=== PATIENT | female | born 1970 | race Caucasian/White ===

== ENCOUNTER 2016-08-10 05:08 | Emergency (ER) | payer MEDICARE, MEDICAID ==
[2016-08-10] MEDS ORDERED: NS 0.9% 1000 ML* 1,000 ML IV ONE (05:33)
[2016-08-10] MEDS ORDERED: Ondansetron INJ* 2 MG/ML VIAL IV ONE (05:33)
[2016-08-10 05:41] LABS: Hematocrit 44 % (35-47); Hemoglobin 14.9 g/dl (12.0-16.0); Mean Corpuscular HGB Conc 34 g/dl (31-36); Mean Corpuscular Hemoglobin 30 pg (27-31); Mean Corpuscular Volume 88 fL (80-97); Mean Platelet Volume 8 um3 (7.4-10.4); Red Blood Count 5.06 10^6/ul (4.0-5.4); Red Cell Distribution Width 14 % (10.5-15); White Blood Count 13.7 10^3/ul (3.5-10.8)
--- NOTE | 2016-08-10 05:54 | ED ---
Madonna Baez Michael, scribed for Jaiden Barrera MD on 08/10/16 at 0540 . GI/ HPI - HPI Summary HPI Summary: 46 y/o was BIBA to the ED presenting with intermittent episodes n/v/d that started at 1900 today. The pt had "many" episodes of diarrhea and vomiting [employer]ENT [employer]ER. She also c/o diffuse abd pain that is rated a 10 out of 10 on a pain severity scale. The PMHx is significant for depression and anxiety. - History of Current Complaint Chief Complaint: EDNauseaVomitDiarrh Stated Complaint: GENERAL ILLNESS Hx Obtained From: Patient, Medical Records Onset/Duration: Started Hours Ago, Still Present Timing: Intermittent Severity: Moderate Current Severity: Moderate Pain Intensity: 10 Location of Pain: Diffuse Associated Signs and Symptoms: Positive: Nausea, Vomiting, Diarrhea, Abdominal Pain - Additional Pertinent History Primary Care Physician: [id number] - Allergy/Home Medications Allergies/Adverse Reactions: Allergies Allergy/AdvReac Type Severity Reaction Status Date / Time Bee Venom Allergy Severe See Comment Verified 08/10/16 05:17 Onion Allergy Severe See Comment Verified 08/10/16 05:17 Aspirin Allergy Intermediate Nausea Verified 08/10/16 05:17 Penicillins [PCN] Allergy Intermediate See Comment Verified 08/10/16 05:17 Mars Allergy Unknown See Comment Verified 08/10/16 05:17 Sulfa Drugs Allergy Unknown Unknown Verified 08/10/16 05:17 Reaction Details Codeine AdvReac Severe See Comment Verified 08/10/16 05:17 Home Medications: Home Medications Baclofen TAB* [Lioresal TAB*] 10 mg PO BID 08/10/16 [History Confirmed 08/10/16] Brexpiprazole (NF) [Rexulti (NF)] 2 mg PO DAILY 08/10/16 [History Confirmed ] Naproxen TAB* [Naprosyn TAB*] 220 mg PO Q8H PRN 08/10/16 [History Confirmed ] Rizatriptan (NF) [Maxalt-Template Maker (NF)] 10 mg PO Q8H PRN 08/10/16 [History Confirmed 08/10/16] PMH/Surg Hx/FS Hx/Imm Hx Endocrine/Hematology History: Denies: Hx Diabetes, Hx Thyroid Disease, Hx Anemia, Hx Unexplained Bleeding, Other Endocrine/Hematological Disorders Cardiovascular History: Denies: Hx Aneurysm, Hx Angina, Hx Angioplasty, Hx Auto Implanted Cardiovert Defib, Hx Cardiac Arrest, Hx Cardiomegaly, Hx Congenital Heart Disease, Hx Congestive Heart Failure, Hx Coronary Artery Disease, Hx Deep Vein Thrombosis, Hx Embolism, Hx Hypercholesterolemia, Hx Hypotension, Hx Hypertension, Hx Pacemaker/ICD, Hx Peripheral Vascular Disease, Hx Rheumatic Fever, Hx Syncope, Hx Valvular Heart Disease, Other Cardiovascular Problems/Disorders Respiratory History: Reports: Hx Asthma, Other Respiratory Problems/Disorders - recent intubation Denies: Hx Chronic Bronchitis, Hx Chronic Obstructive Pulmonary Disease (COPD ), Hx Cystic Fibrosis, Hx Lung Cancer, Hx Pleural Effusion, Hx Pneumonia, Hx Pulmonary Edema, Hx Pulmonary Embolism, Hx Seasonal Allergies, Hx Sleep Apnea GI History: Reports: Hx Gastroesophageal Reflux Disease, Hx Ulcer Denies: Hx Gastrointestinal Bleed, Hx Hiatal Hernia History: Reports: Other Problems/Disorders - accidents; pt reports sometimes unable to make it to [facility] on time Denies: Hx Dialysis, Hx Kidney Stones, Hx Renal Disease Musculoskeletal History: Reports: Hx Back Problems, Other Musculoskeletal History - MS Denies: Hx Arthritis, Hx Bursitis, Hx Congenital Bone Abnormalities, Hx Fibromyalgia, Hx Gout, Hx Orthopedic Injury, Hx Osteoporosis, Hx Scoliosis, Hx Tendonitis Sensory History: Reports: Hx Contacts or Glasses, Other Sensory Impairments - Numbness in feet Denies: Hx Cataracts, Hx Eye Injury, Hx Eye Prosthesis, Hx Glaucoma, Hx Legally Blind, Hx Macular Degeneration, Hx Vision Problem, Hx Deafness, Hx Hearing Aid, Hx Hearing Problem Opthamlomology History: Reports: Hx Contacts or Glasses, Other Sensory Impairments - Numbness in feet Denies: Hx Cataracts, Hx Eye Injury, Hx Eye Prosthesis, Hx Glaucoma, Hx Legally Blind, Hx Macular Degeneration, Hx Vision Problem Neurological History: Reports: Hx Headaches, Hx Migraine, Hx Nerve Disease, Other Neuro Impairments/Disorders - MS Denies: Hx Dementia, Hx Developmental Delay, Hx Seizures, Hx Spinal Cord Injury, Hx Transient Ischemic Attacks (TIA) Psychiatric History: Reports: Hx Anxiety, Hx Depression, Hx Suicide Attempt, Hx Substance Abuse Denies: Hx Attention Deficit Hyperactivity Disorder, Hx Eating Disorder, Hx Panic Disorder, Hx Post Traumatic Stress Disorder, Hx Inpatient Treatment, Hx Community Mental Health Tx, Hx Schizophrenia, Hx Bipolar Disorder, Hx of Violent Episodes Against Others, Other Psychiatric Issues/Disorders - Surgical History Surgery Procedure, Year, and Place: molars REMOVED 2010 & 2011 Hx Anesthesia Reactions: No - Immunization History Date of Tetanus Vaccine: Unknown Date of Influenza Vaccine: Unk re: Fall 2014 Infectious Disease History: No Infectious Disease History: Denies: Hx Clostridium Difficile, Hx Hepatitis, Hx Human Immunodeficiency Virus (HIV), Hx of Known/Suspected MRSA, Hx Shingles, Hx Tuberculosis, Hx Known/ Suspected VRE, Hx Known/Suspected VRSA, History Other Infectious Disease, Traveled Outside the [place] in Last 30 Days - Family History Known Family History: Positive: Unknown - Social History Lives: Alone Alcohol Use: None 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 Hx Substance Use: No Substance Use Type: Reports: None Hx Tobacco Use: No Smoking Status (MU): Never Smoked Tobacco Type: Cigarettes Amount Used/How Often: 2 cigaretts/week Length of Time of Smoking/Using Tobacco: 2 months Have You Smoked in the Last Year: No Review of Systems Negative: Fever Positive: Abdominal Pain, Vomiting, Diarrhea, Nausea All Other Systems Reviewed And Are Negative: Yes Physical Exam Triage Information Reviewed: Yes Vital Signs On Initial Exam: Initial Vitals Temp Pulse Resp BP Pulse Ox 97.3 F 126 17 123/77 97 08/10/16 05:11 08/10/16 05:11 08/10/16 05:11 08/10/16 05:11 08/10/16 05:11 Vital Signs Reviewed: Yes Appearance: Positive: Well-Appearing, No Pain Distress Skin: Positive: Warm Eyes: Positive: LUIS ENT: Positive: Hearing grossly normal Neck: Positive: Supple Respiratory/Lung Sounds: Positive: Clear to Auscultation, Breath Sounds Present Cardiovascular: Positive: RRR Abdomen Description: Positive: Nontender, No Organomegaly, Soft Bowel Sounds: Positive: Present Musculoskeletal: Positive: Strength/ROM Intact Diagnostics - Vital Signs Vital Signs Temp Pulse Resp BP Pulse Ox 08/10/16 05:11 97.3 F 126 17 123/77 97 - Laboratory Lab Results: Lab Results 08/10/16 Range/Units 05:15 WBC 13.7 H (3.5-10.8) 10^3/ul RBC 5.06 (4.0-5.4) 10^6/ul Hgb 14.9 (12.0-16.0) g/dl Hct 44 (35-47) % MCV 88 (80-97) fL MCH 30 (27-31) pg MCHC 34 (31-36) g/dl RDW 14 (10.5-15) % Plt Count 280 (150-450) 10^3/ul MPV 8 (7.4-10.4) um3 Neut % (Auto) 91.0 H (38-83) % Lymph % (Auto) 1.9 L (25-47) % [place] % (Auto) 6.4 (1-9) % Eos % (Auto) 0.1 (0-6) % Baso % (Auto) 0.6 (0-2) % Absolute Neuts (auto) 12.5 H (1.5-7.7) 10^3/ul Absolute Lymphs (auto) 0.3 L (1.0-4.8) 10^3/ul Absolute Monos (auto) 0.9 H (0-0.8) 10^3/ul Absolute Eos (auto) 0 (0-0.6) 10^3/ul Absolute Basos (auto) 0.1 (0-0.2) 10^3/ul Absolute Nucleated RBC 0 10^3/ul Nucleated RBC % 0 Result Diagrams: 08/10/16 05:15 08/10/16 05:15 Lab Statement: Any lab studies that have been ordered have been reviewed, and results considered in the medical decision making process. Re-Evaluation - Re-Evaluation First Eval Re-Evaluation Time: 06:40 Change: Improved GIGU Course/Dx - Diagnoses Provider Diagnoses: Gastroenteritis Discharge - Discharge Plan Condition: Improved Disposition: HOME Patient Education Materials: Gastroenteritis (ED) Referrals: hCiki Chandler MD [Primary Care Provider] - Additional Instructions: You should keep to a bland diet for the next few days. And follow up with Dr. Chandler as needed. Please return to the ED if your symptoms worsen. The documentation as recorded by the Madonna mark Michael accurately reflects the service I personally performed and the decisions made by me, Jaiden Barrera MD.
[2016-08-10 05:57] LABS: Albumin 4.4 g/dL (3.2-5.2); BUN/Creatinine Ratio 19.5 (8-20); C Reactive Protein 9.12 mg/L (< 5.00); Calcium 9.1 mg/dL (8.6-10.3); EGFR African American 103.3 (>60); EGFR Non-African American 80.4 (>60); Magnesium 1.4 mg/dL (1.9-2.7); Potassium 3.8 mmol/L (3.5-5.0); Total Bilirubin 0.8 mg/dL (0.2-1.0); Total Protein 7.4 g/dL (6.4-8.9)
[2016-08-10] MEDS ORDERED: Ondansetron ODT TAB* 4 MG PO ONE (06:50)
[2016-08-10] MEDS ORDERED: Ondansetron ODT TAB* 4 MG ONE (06:52)
[2016-08-10 07:06] VITALS: BP 123/73
== END 2016-08-10 07:04 | disposition home or self-care (01) ==
LOC: ED 05:08
DX: K52.9 Noninfective gastroenteritis and colitis, unspecified (principal); R11.2 Nausea with vomiting, unspecified; R19.7 Diarrhea, unspecified; R10.9 Unspecified abdominal pain; Z87.891 Personal history of nicotine dependence
CPT/HCPCS: 36415; 80053; 83605; 83690; 83735; 85025; 86140; 96374; 99283; A9270-GY; J2405

== ENCOUNTER 2016-08-10 18:39 | Emergency (ER) | payer MEDICARE, MEDICAID ==
[2016-08-10] MEDS ORDERED: Pantoprazole IV* 40 MG IV ONE (20:46)
[2016-08-10] MEDS ORDERED: Sucralfate TAB* 1 GM PO ONE (20:46)
[2016-08-10] MEDS ORDERED: NS 0.9% 1000 ML* 1,000 ML IV ONE (20:46)
[2016-08-10 21:22] LABS: Hematocrit 42 % (35-47); Hemoglobin 13.9 g/dl (12.0-16.0); Mean Corpuscular HGB Conc 33 g/dl (31-36); Mean Corpuscular Hemoglobin 29 pg (27-31); Mean Corpuscular Volume 88 fL (80-97); Mean Platelet Volume 9 um3 (7.4-10.4); Red Blood Count 4.75 10^6/ul (4.0-5.4); Red Cell Distribution Width 14 % (10.5-15); White Blood Count 6.5 10^3/ul (3.5-10.8)
[2016-08-10 21:37] LABS: ALT 14 U/L (7-52); AST 19 U/L (13-39); Albumin 4.1 g/dL (3.2-5.2); Alkaline Phosphatase 75 U/L (34-104); Anion Gap 8 mmol/L (2-11); BUN/Creatinine Ratio 16.9 (8-20); Blood Urea Nitrogen 12 mg/dL (6-24); C Reactive Protein 72.41 mg/L (< 5.00); CO2 Carbon Dioxide 26 mmol/L (22-32); Calcium 8.6 mg/dL (8.6-10.3); Chloride 102 mmol/L (101-111); EGFR African American 113.5 (>60); EGFR Non-African American 88.2 (>60); Globulin 2.8 g/dL (2-4); Glucose 97 mg/dL (70-100); Lipase < 10 U/L (11.0-82.0); Potassium 3.2 mmol/L (3.5-5.0); Sodium 136 mmol/L (133-145); Total Protein 6.9 g/dL (6.4-8.9)
[2016-08-10] MEDS ORDERED: HYDROmorphone INJ* 1 MG/ML CARPUJECT SYRINGE IV ONE ×2 (21:46→23:53)
[2016-08-10] MEDS ORDERED: Ondansetron INJ* 2 MG/ML VIAL IV ONE (21:46)
[2016-08-10 23:29] LABS: Urine Bacteria 1+ (Absent); Urine Bilirubin Negative (Negative); Urine Glucose Negative (Negative); Urine Nitrite Negative (Negative)
[2016-08-10] MEDS ORDERED: Metoclopramide IV* 5 MG/ML 2 ML VIAL IV ONE (23:41)
--- NOTE | 2016-08-11 00:03 | ED ---
Marlen Baez Matthew, scribed for Hayes Wei MD on 08/10/16 at 205 . Abdominal Pain/Female - HPI Summary HPI Summary: A 46 y/o female presents to the ED with epigastric abdominal pain since yesterday at 19:00. The pain is rated 10/10 in severity and described as sharp. Nothing alleviates or worsens the pain. Associated symptoms include nausea, vomiting, and diarrhea. The patient was seen in the ED last night, but continues to have pain. PMHx includes MS - History of Current Complaint Chief Complaint: EDAbdPain Stated Complaint: POSSIBLE FLU Time Seen by Provider: 08/10/16 20:35 Hx Obtained From: Patient ?: No Onset/Duration: Lasting Days, Still Present Timing: Constant Severity Initially: Moderate Severity Currently: Moderate Pain Intensity: 10 Pain Scale Used: 0-10 Numeric Location: Epigastric Radiates: No Character: Sharp Aggravating Factor(s): Nothing Alleviating Factor(s): Nothing Associated Signs and Symptoms: Positive: Nausea, Vomiting, Diarrhea Allergies/Adverse Reactions: Allergies Allergy/AdvReac Type Severity Reaction Status Date / Time Bee Venom Allergy Severe See Comment Verified 08/10/16 05:17 Onion Allergy Severe See Comment Verified 08/10/16 05:17 Aspirin Allergy Intermediate Nausea Verified 08/10/16 05:17 Penicillins [PCN] Allergy Intermediate See Comment Verified 08/10/16 05:17 [place] Allergy Unknown See Comment Verified 08/10/16 05:17 Sulfa Drugs Allergy Unknown Unknown Verified 08/10/16 05:17 Reaction Details Codeine AdvReac Severe See Comment Verified 08/10/16 05:17 PMH/Surg Hx/FS Hx/Imm Hx Endocrine/Hematology History: Denies: Hx Diabetes, Hx Thyroid Disease, Hx Anemia, Hx Unexplained Bleeding, Other Endocrine/Hematological Disorders Cardiovascular History: Denies: Hx Aneurysm, Hx Angina, Hx Angioplasty, Hx Auto Implanted Cardiovert Defib, Hx Cardiac Arrest, Hx Cardiomegaly, Hx Congenital Heart Disease, Hx Congestive Heart Failure, Hx Coronary Artery Disease, Hx Deep Vein Thrombosis, Hx Embolism, Hx Hypercholesterolemia, Hx Hypotension, Hx Hypertension, Hx Pacemaker/ICD, Hx Peripheral Vascular Disease, Hx Rheumatic Fever, Hx Syncope, Hx Valvular Heart Disease, Other Cardiovascular Problems/Disorders Respiratory History: Reports: Hx Asthma, Other Respiratory Problems/Disorders - recent intubation Denies: Hx Chronic Bronchitis, Hx Chronic Obstructive Pulmonary Disease (COPD ), Hx Cystic Fibrosis, Hx Lung Cancer, Hx Pleural Effusion, Hx Pneumonia, Hx Pulmonary Edema, Hx Pulmonary Embolism, Hx Seasonal Allergies, Hx Sleep Apnea GI History: Reports: Hx Gastroesophageal Reflux Disease, Hx Ulcer Denies: Hx Gastrointestinal Bleed, Hx Hiatal Hernia History: Reports: Other Problems/Disorders - accidents; pt reports sometimes unable to make it to [facility] on time Denies: Hx Dialysis, Hx Kidney Stones, Hx Renal Disease Musculoskeletal History: Reports: Hx Back Problems, Other Musculoskeletal History - MS Denies: Hx Arthritis, Hx Bursitis, Hx Congenital Bone Abnormalities, Hx Fibromyalgia, Hx Gout, Hx Orthopedic Injury, Hx Osteoporosis, Hx Scoliosis, Hx Tendonitis Sensory History: Reports: Hx Contacts or Glasses, Other Sensory Impairments - Numbness in feet Denies: Hx Cataracts, Hx Eye Injury, Hx Eye Prosthesis, Hx Glaucoma, Hx Legally Blind, Hx Macular Degeneration, Hx Vision Problem, Hx Deafness, Hx Hearing Aid, Hx Hearing Problem Opthamlomology History: Reports: Hx Contacts or Glasses, Other Sensory Impairments - Numbness in feet Denies: Hx Cataracts, Hx Eye Injury, Hx Eye Prosthesis, Hx Glaucoma, Hx Legally Blind, Hx Macular Degeneration, Hx Vision Problem Neurological History: Reports: Hx Headaches, Hx Migraine, Hx Nerve Disease, Other Neuro Impairments/Disorders - MS Denies: Hx Dementia, Hx Developmental Delay, Hx Seizures, Hx Spinal Cord Injury, Hx Transient Ischemic Attacks (TIA) Psychiatric History: Reports: Hx Anxiety, Hx Depression, Hx Suicide Attempt, Hx Substance Abuse Denies: Hx Attention Deficit Hyperactivity Disorder, Hx Eating Disorder, Hx Panic Disorder, Hx Post Traumatic Stress Disorder, Hx Inpatient Treatment, Hx Community Mental Health Tx, Hx Schizophrenia, Hx Bipolar Disorder, Hx of Violent Episodes Against Others, Other Psychiatric Issues/Disorders - Surgical History Surgery Procedure, Year, and Place: molars REMOVED 2010 & 2011 Hx Anesthesia Reactions: No - Immunization History Date of Tetanus Vaccine: Unknown Date of Influenza Vaccine: Unk re: Fall 2014 Infectious Disease History: No Infectious Disease History: Denies: Hx Clostridium Difficile, Hx Hepatitis, Hx Human Immunodeficiency Virus (HIV), Hx of Known/Suspected MRSA, Hx Shingles, Hx Tuberculosis, Hx Known/ Suspected VRE, Hx Known/Suspected VRSA, History Other Infectious Disease, Traveled Outside the [place] in Last 30 Days - Family History Known Family History: Positive: Diabetes Family History: FHx of spina bifida - Social History Alcohol Use: None 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 Hx Substance Use: No Substance Use Type: Reports: None Hx Tobacco Use: No Smoking Status (MU): Never Smoked Tobacco Type: Cigarettes Amount Used/How Often: 2 cigaretts/week Length of Time of Smoking/Using Tobacco: 2 months Have You Smoked in the Last Year: No Review of Systems Constitutional: Negative Eyes: Negative ENT: Negative Cardiovascular: Negative Respiratory: Negative Positive: Abdominal Pain - epigastric , Vomiting, Diarrhea, Nausea Genitourinary: Negative Musculoskeletal: Negative Skin: Negative Neurological: Negative Psychological: Normal All Other Systems Reviewed And Are Negative: Yes Physical Exam Triage Information Reviewed: Yes Vital Signs On Initial Exam: Initial Vitals Temp Pulse Resp BP Pulse Ox 98.7 F 118 20 116/58 98 08/10/16 18:46 08/10/16 18:46 08/10/16 18:46 08/10/16 18:46 08/10/16 18:46 Vital Signs Reviewed: Yes Appearance: Positive: Pain Distress - mild Skin: Positive: Warm, Skin Color Reflects Adequate Perfusion, Dry Head/Face: Positive: Normal Head/Face Inspection Eyes: Positive: Normal ENT: Positive: Normal ENT inspection Neck: Positive: Supple, Nontender Respiratory/Lung Sounds: Positive: Clear to Auscultation, Breath Sounds Present Cardiovascular: Positive: Tachycardia Abdomen Description: Positive: Soft, Other: - epigastric tenderness Bowel Sounds: Positive: Present Musculoskeletal: Positive: Normal Neurological: Positive: Normal Psychiatric: Positive: Normal, Affect/Mood Appropriate Diagnostics - Vital Signs Vital Signs Temp Pulse Resp BP Pulse Ox 08/10/16 20:11 98.8 F 110 107/68 100 08/10/16 18:46 98.7 F 118 20 116/58 98 - Laboratory Lab Results: Lab Results 08/10/16 08/10/16 08/10/16 Range/Units 21:10 21:10 21:10 WBC 6.5 (3.5-10.8) 10^3/ul RBC 4.75 (4.0-5.4) 10^6/ul Hgb 13.9 (12.0-16.0) g/dl Hct 42 (35-47) % MCV 88 (80-97) fL MCH 29 (27-31) pg MCHC 33 (31-36) g/dl RDW 14 (10.5-15) % Plt Count 264 (150-450) 10^3/ul MPV 9 (7.4-10.4) um3 Neut % (Auto) 84.8 H (38-83) % Lymph % (Auto) 7.3 L (25-47) % [place] % (Auto) 7.0 (1-9) % Eos % (Auto) 0.4 (0-6) % Baso % (Auto) 0.5 (0-2) % Absolute Neuts (auto) 5.5 (1.5-7.7) 10^3/ul Absolute Lymphs (auto) 0.5 L (1.0-4.8) 10^3/ul Absolute Monos (auto) 0.5 (0-0.8) 10^3/ul Absolute Eos (auto) 0 (0-0.6) 10^3/ul Absolute Basos (auto) 0 (0-0.2) 10^3/ul Absolute Nucleated RBC 0.01 10^3/ul Nucleated RBC % 0.2 Sodium 136 (133-145) mmol/L Potassium 3.2 L (3.5-5.0) mmol/L Chloride 102 (101-111) mmol/L Carbon Dioxide 26 (22-32) mmol/L Anion Gap 8 (2-11) mmol/L BUN 12 (6-24) mg/dL Creatinine 0.71 (0.51-0.95) mg/dL Est GFR ( Amer) 113.5 (>60) Est GFR (Non-Af Amer) 88.2 (>60) BUN/Creatinine Ratio 16.9 (8-20) Glucose 97 (70-100) mg/dL Lactic Acid 1.4 (0.5-2.0) mmol/L Calcium 8.6 (8.6-10.3) mg/dL Total Bilirubin 0.80 (0.2-1.0) mg/dL AST 19 (13-39) U/L ALT 14 (7-52) U/L Alkaline Phosphatase 75 (34-104) U/L C-Reactive Protein 72.41 H (< 5.00) mg/L Total Protein 6.9 (6.4-8.9) g/dL Albumin 4.1 (3.2-5.2) g/dL Globulin 2.8 (2-4) g/dL Albumin/Globulin Ratio 1.5 (1-3) Lipase < 10 L (11.0-82.0) U/L Urine Color Urine Appearance Urine pH (5-9) Ur Specific [place] (1.010-1.030) Urine Protein (Negative) Urine Ketones (Negative) Urine Blood (Negative) Urine Nitrate (Negative) Urine Bilirubin (Negative) Urine Urobilinogen (Negative) Ur Leukocyte Esterase (Negative) Urine WBC (Auto) (Absent) Urine RBC (Auto) (Absent) Ur Squamous Epith Cells (Absent) Urine Bacteria (Absent) Urine Glucose (Negative) 08/10/16 Range/Units 22:56 WBC (3.5-10.8) 10^3/ul RBC (4.0-5.4) 10^6/ul Hgb (12.0-16.0) g/dl Hct (35-47) % MCV (80-97) fL MCH (27-31) pg MCHC (31-36) g/dl RDW (10.5-15) % Plt Count (150-450) 10^3/ul MPV (7.4-10.4) um3 Neut % (Auto) (38-83) % Lymph % (Auto) (25-47) % [place] % (Auto) (1-9) % Eos % (Auto) (0-6) % Baso % (Auto) (0-2) % Absolute Neuts (auto) (1.5-7.7) 10^3/ul Absolute Lymphs (auto) (1.0-4.8) 10^3/ul Absolute Monos (auto) (0-0.8) 10^3/ul Absolute Eos (auto) (0-0.6) 10^3/ul Absolute Basos (auto) (0-0.2) 10^3/ul Absolute Nucleated RBC 10^3/ul Nucleated RBC % Sodium (133-145) mmol/L Potassium (3.5-5.0) mmol/L Chloride (101-111) mmol/L Carbon Dioxide (22-32) mmol/L Anion Gap (2-11) mmol/L BUN (6-24) mg/dL Creatinine (0.51-0.95) mg/dL Est GFR ( Amer) (>60) Est GFR (Non-Af Amer) (>60) BUN/Creatinine Ratio (8-20) Glucose (70-100) mg/dL Lactic Acid (0.5-2.0) mmol/L Calcium (8.6-10.3) mg/dL Total Bilirubin (0.2-1.0) mg/dL AST (13-39) U/L ALT (7-52) U/L Alkaline Phosphatase (34-104) U/L C-Reactive Protein (< 5.00) mg/L Total Protein (6.4-8.9) g/dL Albumin (3.2-5.2) g/dL Globulin (2-4) g/dL Albumin/Globulin Ratio (1-3) Lipase (11.0-82.0) U/L Urine Color Yellow Urine Appearance Cloudy Urine pH 5.0 (5-9) Ur Specific [place] 1.032 H (1.010-1.030) Urine Protein 2+(100 mg/dl) H (Negative) Urine Ketones Trace H (Negative) Urine Blood Negative (Negative) Urine Nitrate Negative (Negative) Urine Bilirubin Negative (Negative) Urine Urobilinogen Negative (Negative) Ur Leukocyte Esterase Negative (Negative) Urine WBC (Auto) Trace(0-5/hpf) (Absent) Urine RBC (Auto) 2+(6-10/hpf) H (Absent) Ur Squamous Epith Cells Present H (Absent) Urine Bacteria 1+ H (Absent) Urine Glucose Negative (Negative) Result Diagrams: 08/10/16 21:10 08/10/16 21:10 Lab Statement: Any lab studies that have been ordered have been reviewed, and results considered in the medical decision making process. Abdominal Pain Fem Course/Dx - Course Course Of Treatment: Ms. Cisneros presented with worsening epigastric pain which did not respond to medications here in the ED. A CT has been ordered. - Diagnoses Provider Diagnoses: Epigastric abdominal pain - Provider Notifications Discussed Care Of Patient With: Dr. Barrera Time Discussed With Above Provider: 00:00 - change of shift Discharge - Discharge Plan Condition: Stable Disposition: HOME Patient Education Materials: Epigastric Pain (ED) Referrals: Chiki Chandler MD [Primary Care Provider] - 2 Days Additional Instructions: Please follow-up with your primary care physician. The documentation as recorded by the Marlen mark Matthew accurately reflects the service I personally performed and the decisions made by me, Hayes Wei MD.
[2016-08-11] MEDS ORDERED: Iohexol 300* (CONTRAST) 10 ML SDV IV ONE (01:57)
[2016-08-11 03:12] VITALS: BP 96/73
--- NOTE | 2016-08-11 07:57 | RAD ---
INDICATION: Epigastric pain COMPARISON: None TECHNIQUE: Axial source images were obtained from the hemidiaphragms to the symphysis pubis following administration of oral and intravenous contrast. 101 mL Omnipaque 300 was utilized. Coronal and sagittal reconstructed images were acquired. Lung bases: The lung bases are clear. Liver: The liver is enlarged with findings of hepatic steatosis. There are no masses. There is no ductal dilatation. Gallbladder: There are no calcified gallstones. There is no evidence of wall thickening or pericholecystic fluid. Spleen: The spleen is normal in size. There are no masses. Pancreas: There is no focal pancreatic mass or ductal dilatation. Adrenal glands: There is no evidence of adrenal mass. Kidneys: The kidneys are normal in size and position. There are prompt nephrograms and there is prompt excretion bilaterally. There are no renal parenchymal masses. There is no evidence of nephrolithiasis. Adenopathy: There is no evidence of adenopathy by size criteria. Fluid collections: There are no free or localized fluid collections. Vessels:There are no significant atherosclerotic changes involving the aorta. There is no focal aneurysm. The iliac vessels are normal in caliber. The IVC appears normal. GI tract: There are no acute CT bowel findings. There is no obstruction. The stomach and small bowel appear normal. The lower GI tract is normal. The cecum, ileocecal valve, and terminal ileum appear normal. The appendix is visualized and appear normal. Pelvic organs: The uterus and adnexa appear normal Bladder: There are no bladder masses. Abdominal and pelvic soft tissues: The extraperitoneal abdominal and pelvic soft tissues appear normal.. Osseous structures: There are no acute osseous findings. Other: None IMPRESSION: NO ACUTE CT FINDINGS. NO MASS OR INFLAMMATORY CHANGE.
== END 2016-08-11 03:11 | disposition home or self-care (01) ==
LOC: ED 18:39
DX: R10.13 Epigastric pain (principal); R11.2 Nausea with vomiting, unspecified; R19.7 Diarrhea, unspecified
CPT/HCPCS: 36415; 74177; 80053; 81003; 81015; 83605; 83690; 85025; 86140; 87086; 96374; 96375; 99284; A9270-GY; J1170; J2405; J2765; Q9967

== ENCOUNTER 2017-03-29 04:20 | Observation (INO) | payer MEDICARE, MEDICAID ==
[2017-03-29] MEDS ORDERED: Acetaminophen TAB* 325 MG PO ONE (08:17)
--- NOTE | 2017-03-29 08:53 | RAD ---
HISTORY: Weakness COMPARISONS: December 16, 2016 VIEWS: 1: frontal portable view of the chest at 8:35 AM FINDINGS: LINES AND TUBES: None. CARDIOMEDIASTINAL SILHOUETTE: The cardiomediastinal silhouette is normal for portable technique. PLEURA: The costophrenic angles are sharp. No pleural abnormalities are noted. LUNG PARENCHYMA: The lungs are clear. ABDOMEN: The upper abdomen is clear. There is no subphrenic gas. BONES AND SOFT TISSUES: No bone or soft tissue abnormalities are noted. IMPRESSION: NO ACTIVE CARDIOPULMONARY DISEASE.
--- NOTE | 2017-03-29 08:53 | RAD ---
HISTORY: Weakness, headache, fall COMPARISONS: April 10, 2014 TECHNIQUE: Multiple contiguous axial CT scans were obtained of the head without intravenous contrast. FINDINGS: HEMORRHAGE/INFARCT: There is no hemorrhage or acute infarct. MASSES/SHIFT: There is no mass or shift. EXTRA-AXIAL SPACES: There are no extra-axial fluid collections. SULCI AND VENTRICLES: There is diffuse and proportional enlargement of the sulci and ventricles. CEREBRUM: There is hypoattenuation of the periventricular and subcortical white matter. BRAINSTEM: There are no focal parenchymal abnormalities. CEREBELLUM: There are no focal parenchymal abnormalities. VESSELS: The vessels are grossly normal. PARANASAL SINUSES: The paranasal sinuses are clear. ORBITS: The orbits are unremarkable. BONES AND SOFT TISSUE: No bone or soft tissue abnormalities are noted. OTHER: None IMPRESSION: NO ACUTE INTRACRANIAL PATHOLOGY. DIFFUSE INVOLUTIONAL CHANGE WITH CHRONIC SMALL VESSEL ISCHEMIC CHANGES.
--- NOTE | 2017-03-29 08:55 | RAD ---
HISTORY: Fall, neck pain COMPARISONS: MRI dated March 04, 2016 TECHNIQUE: Multiple contiguous axial CT scans were obtained of the cervical spine without intravenous contrast, with coronal and sagittal multiplanar reformations. FINDINGS: BRAIN: The visualized brain is unremarkable CENTRAL CANAL: Evaluation of the central canal is limited on CT technique; however, there is no obvious canalicular mass or epidural hemorrhage. ALIGNMENT: The alignment is normal, without subluxation or dislocation. VERTEBRAL BODIES: There is minimal anterolateral marginal osteophyte formation with sclerotic reactive endplate changes at C5-C6. There is no displaced fracture. JOINTS: There is mild uncovertebral osteoarthritis at C5-C6. MUSCULATURE: Unremarkable INTERVERTEBRAL DISCS: There is diffuse loss of intervertebral disc height. AXIAL IMAGES: There is no osseous neural foraminal narrowing or central canal stenosis. SOFT TISSUES: The visualized soft tissues of the neck are unremarkable. The prevertebral fat stripe is preserved. OTHER: None. IMPRESSION: 1. MILD DEGENERATIVE DISC DISEASE AND OSTEOARTHRITIS MOST PRONOUNCED AT C5-C6. 2. NO ACUTE OSSEOUS INJURY TO THE CERVICAL SPINE.
--- NOTE | 2017-03-29 09:19 | RAD ---
HISTORY: Thoracic spine pain after fall COMPARISONS: Chest x-ray dated December 16, 2016 VIEWS: 2, Frontal and lateral views of the thoracic spine. FINDINGS: ALIGNMENT: The alignment is normal. VERTEBRAL BODIES: The vertebral body heights are normal. The interpedicular distances are normal. JOINTS: Unremarkable. INTERVERTEBRAL DISCS: There is mild diffuse loss of intervertebral disc height. SOFT TISSUE: Unremarkable OTHER: The visualized lungs are clear. IMPRESSION: UNREMARKABLE RADIOGRAPH OF THE THORACIC SPINE
[2017-03-29 09:53] LABS: Urine Bacteria 1+ (Absent); Urine Bilirubin Negative (Negative); Urine Glucose Negative (Negative); Urine Nitrite Negative (Negative)
[2017-03-29] MEDS ORDERED: cefTRIAXone(*) 1 GM in NS 0.9% 50 ML* 50 ML IVPB ONE (10:09)
[2017-03-29 10:16] LABS: Hematocrit 40 % (35-47); Hemoglobin 13.6 g/dl (12.0-16.0); Mean Corpuscular HGB Conc 34 g/dl (31-36); Mean Corpuscular Hemoglobin 30 pg (27-31); Mean Corpuscular Volume 86 fL (80-97); Mean Platelet Volume 9 um3 (7.4-10.4); Red Blood Count 4.59 10^6/ul (4.0-5.4); Red Cell Distribution Width 14 % (10.5-15); White Blood Count 7.5 10^3/ul (3.5-10.8)
[2017-03-29 10:39] LABS: Chloride 104 mmol/L (101-111); Sodium 136 mmol/L (133-145)
[2017-03-29 10:54] LABS: TSH (Thyroid Stimulating Horm) 7.44 mcIU/mL (0.34-5.60)
[2017-03-29 11:06] LABS: ALT 17 U/L (7-52); Alkaline Phosphatase 80 U/L (34-104); Anion Gap 14 mmol/L (2-11); BUN/Creatinine Ratio 10.8 (8-20); Blood Urea Nitrogen 8 mg/dL (6-24); CO2 Carbon Dioxide 18 mmol/L (22-32); Calcium 8.8 mg/dL (8.6-10.3); EGFR African American 108.2 (>60); EGFR Non-African American 84.1 (>60); Globulin 2.9 g/dL (2-4); Glucose 88 mg/dL (70-100); Magnesium 2.2 mg/dL (1.9-2.7)
[2017-03-29] MEDS ORDERED: NS 0.9% 1000 ML* 1,000 ML IV ONE (11:15)
[2017-03-29] MEDS ORDERED: cefTRIAXone(*) 1 GM ADVAN ONE (11:21)
[2017-03-29] MEDS ORDERED: RIZATRIPTAN 10 MG PO PRN (11:47)
[2017-03-29] MEDS ORDERED: Ondansetron ODT TAB* 4 MG PO PRN (11:47)
[2017-03-29] MEDS ORDERED: NS 0.9% 1000 ML* 1,000 ML IV SCH (12:00)
[2017-03-29 13:04] LABS: C Reactive Protein 4.14 mg/L (< 5.00)
--- NOTE | 2017-03-29 14:43 | HP ---
CC: Dr. Chandler * [facility] MEDICINE HISTORY AND PHYSICAL: DATE OF ADMISSION: 03/29/17 PRIMARY CARE PHYSICIAN: Dr. Chandler. ATTENDING PHYSICIAN: Dr. Fabina Whyte * (dictation provided by Angi Perales NP ). CHIEF COMPLAINT: Fall with weakness. HISTORY OF PRESENT ILLNESS: Ms. Cisneros is a 46-year-old female with past medical history of multiple sclerosis, depression, and asthma, who presents to the hospital today with concern for fall with weakness. Ms. Cisneros states that she was feeling unwell last evening. She had some stomach cramps when she went to bed in the middle of her abdomen. She notes that she typically has these cramps and it was not particularly unusual. Early in the morning, she awoke to urinate and while coming back from the bathroom, she fell. She was unable to get up herself and therefore called EMS, who brought her to the emergency room. Since being in the emergency room, she has had no further cramping. She has had no diarrhea. She has had no dysuria, no frequency, but she continues to feel very weak as per routine with her MS exacerbations in the past. In the emergency room, Ms. Cisneros had no fever, no leukocytosis. CRP is pending. However, she had a UA, which showed suspicion for possible UTI with trace leuk esterase and 1+ bacteria. PAST MEDICAL HISTORY: 1. Multiple sclerosis. 2. Depression. 3. Asthma. 4. History of migraines. 5. Urinary incontinence. 6. Optic neuritis. MEDICATIONS: As outpatient are: 1. Amantadine 100 mg p.o. b.i.d. 2. Baclofen 10 mg p.o. b.i.d. 3. Brexpiprazole 2 mg p.o. daily. 4. Tecfidera 250 mg p.o. daily. 5. Methylphenidate ER 36 mg p.o. q.a.m. 6. Naproxen 220 mg p.o. q.8 hours p.r.n. 7. Ondansetron 4 mg p.o. q.6 hours p.r.n. 8. Oxybutynin 5 mg p.o. b.i.d. 9. Rizatriptan 10 mg p.o. q.8 hours p.r.n. 10. Vilazodone 40 mg p.o. daily. ALLERGIES: To BEE VENOM, ONION, ASPIRIN, PENICILLIN, CITRUS, SULFA DRUGS, CODEINE. FAMILY HISTORY: The patient's mother at 60 related to complications of diabetes. Her father is alive, he has spina bifida. SOCIAL HISTORY: No prior alcohol, tobacco, or drug use. The patient lives alone. States that her friend, Meme Palumbo, would be the healthcare proxy. REVIEW OF SYSTEMS: A 14-point review of systems was completed with Ms. Cisneros and all those not mentioned above were negative. PHYSICAL EXAMINATION GENERAL: Ms. Cisneros is sitting up in the bed. She is in no acute distress. VITAL SIGNS: Temperature 98.1, heart rate 83, respiratory rate 16, O2 saturation 99% on room air, blood pressure 121/59. LUNGS: Clear to auscultation bilaterally with no accessory muscle use and good aeration. HEART: S1 and S2. No murmur, rub, or gallop, and regular. ABDOMEN: Soft, nontender with bowel sounds positive x4. EXTREMITIES: No cyanosis or edema. NEURO: She is alert, she is oriented x3. She moves all extremities equally. There is no facial asymmetry or focal weakness. Extraocular movements are intact. SKIN: Intact. DIAGNOSTIC STUDIES/LAB DATA: Sodium 136, potassium 4.2, chloride 104, serum bicarbonate 18, anion gap 14, BUN 8, creatinine 0.74, glucose 88, lactic acid 2.1, magnesium 2.2, TSH 7.44. WBC 7.5, hemoglobin 13.6, hematocrit 40, platelet count 295. Urine shows 1+ leuk esterase, positive bacteria, no nitrites. Brain CT shows no acute intracranial pathology, diffuse involutional change, or chronic small vessel ischemic changes. Chest x-rays is read as follows: "No active cardiopulmonary disease." Cervical spine CT is read as follows: "Mild degenerative disk disease and osteoarthritis most pronounced at C5-C6, no acute osseous injury to the cervical spine." Thoracic spine x-ray is read as follows: "Unremarkable radiograph of thoracic spine." ASSESSMENT AND PLAN: Ms. Cisneros is a 46-year-old female with past medical history of multiple sclerosis and depression, who presents today to the hospital with concern for fall at home, now weakness and possible multiple sclerosis exacerbation most likely due to possible urinary tract infection. Our plans for observation in the hospital for the followin. Weakness: Ms. Cisneros states she is weaker than her baseline. She was able to get up to bedside commode, but does not feel safe going home with the level of weakness that she is experiencing. I see no other cause at her exacerbation other than the mildly positive urinalysis. She denies any symptoms at this time , but states she has not had symptoms in the past with urinary tract infection either. Plan for nitrofurantoin while we await urine cultures. If the patient continues to have issue, we will need to consult Neurology tomorrow regarding possible initiation of steroids, etc. In the meantime, we will continue with her other home medications. 2. Depression. Continue home medications. 3. DVT prophylaxis with SCDs. 4. Code status is full code. TIME SPENT: Approximately 60 minutes was spent on the admission of this patient. More than half the time spent with the patient at the bedside reviewing the events leading up to this hospitalization, performing the physical examination, and reviewing my plan of care. ANGI PERALES NP [id number]/CPS #: [id number] SHIRA
[2017-03-29] MEDS: Naproxen TAB* 250 MG PO PRN (19:59)
[2017-03-29] MEDS: Oxybutynin TAB* 5 MG PO SCH (20:54)
[2017-03-29] MEDS: Amantadine CAP* 100 MG PO SCH (20:54)
[2017-03-29] MEDS: DIMETHYL FUMARATE 240 MG PO SCH (21:03)
[2017-03-29] MEDS: Baclofen TAB* 10 MG PO SCH (21:04)
[2017-03-30 06:09] LABS: BUN/Creatinine Ratio 12.3 (8-20); EGFR African American 97.5 (>60); EGFR Non-African American 75.8 (>60); Potassium 3.5 mmol/L (3.5-5.0)
[2017-03-30] MEDS: Naproxen TAB* 250 MG PO PRN ×2 (07:58→19:36)
[2017-03-30] MEDS: Methylphenidate ER TAB* 18 MG PO SCH (09:06)
[2017-03-30] MEDS: BREXPIPRAZOLE 2 MG PO SCH (09:07)
[2017-03-30] MEDS: DIMETHYL FUMARATE 240 MG PO SCH ×2 (09:07→21:14)
[2017-03-30] MEDS: Amantadine CAP* 100 MG PO SCH ×2 (09:08→21:15)
[2017-03-30] MEDS: Nitrofurantoin Macrocrystals* 100 MG CAP PO SCH ×4 (09:08→21:15)
[2017-03-30] MEDS: Oxybutynin TAB* 5 MG PO SCH ×2 (09:08→21:15)
[2017-03-30] MEDS: Baclofen TAB* 10 MG PO SCH ×2 (09:08→21:15)
[2017-03-30] MEDS: VILAZODONE 40 MG PO SCH (09:08)
--- NOTE | 2017-03-30 11:33 | PN ---
Subjective Date of Service: 03/30/17 Interval History: This is a 46 yo female with MS who presents with c/o weakness. Symptoms started suddenly the night before last returning from the restroom when she felt weak and fell. She has had a recent backache, but doesn't recall an acute injury. She has been taking Aleve with some relief. Denies urinary symptoms, UA was abnl at admission. She received one dose of Ceftriaxone in the ER, and started on nitrofurantoin for possible UTI. This am, she was evaluated by PT who felt that she was near baseline. Patient still feels weak, similar to yesterday. Her chronic symptoms include BLE weakness, L>R and RUE weakness and she uses a walker at baseline. She denies any focality or dizziness associated with her weakness. Patient was treated for a similar constellation of symptoms ~1mo ago. No new lesions on MRI at that time. She was given oral prednisone. Weakness improved with antibiotics at that time, although culture showed no growth. Objective Active Medications: Amantadine HCl (Symmetrel Cap*) 100 mg PO BID [facility] Last Admin: 03/30/17 09:08 Dose: 100 mg Baclofen (Lioresal Tab*) 10 mg PO BID [facility] Last Admin: 03/30/17 09:08 Dose: 10 mg Methylphenidate HCl (Concerta Er Tab*) 36 mg PO QAM [facility] Last Admin: 03/30/17 09:06 Dose: 36 mg Naproxen (Naprosyn Tab*) 250 mg PO Q8H PRN PRN Reason: PAIN Last Admin: 03/30/17 07:58 Dose: 250 mg Nitrofurantoin Macrocrystals (Macrodantin*) 100 mg PO QID [facility] Last Admin: 03/30/17 09:08 Dose: 100 mg Pto: Brexpiprazole (Nf) [Rexulti (Nf)] 2 Mg) 2 mg PO DAILY [facility] Last Admin: 03/30/17 09:07 Dose: 2 mg Pto: Dimethyl Fumarate(Nf) [ Tecfidera(Nf)] 240 Mg) 240 mg PO BID [facility] Last Admin: 03/30/17 09:07 Dose: 240 mg Pto: Rizatriptan ( Nf) [Maxalt(Nf)] 10 Mg 10 mg PO Q8H PRN PRN Reason: HEADACHE Ondansetron HCl (Zofran Odt Tab*) 4 mg PO Q6H PRN PRN Reason: NAUSEA Oxybutynin Chloride (Ditropan Tab*) 5 mg PO BID [facility] Last Admin: 03/30/17 09:08 Dose: 5 mg Vilazodone HCl (Viibryd (Nf)) 40 mg PO DAILY [facility] Last Admin: 03/30/17 09:08 Dose: 40 mg Vital Signs: Temp Pulse Resp BP Pulse Ox 98.3 F 63 18 97/47 98 03/30/17 07:52 03/30/17 07:52 03/30/17 08:00 03/30/17 07:52 03/30/17 07:52 Oxygen Devices in Use Now: None Appearance: Chronically ill appearing middle aged female in NAD Respiratory: Symmetrical Chest Expansion and Respiratory Effort, Clear to Auscultation Cardiovascular: NL Sounds; No Murmurs; No JVD, RRR Abdominal: NL Sounds; No Tenderness; No Distention Extremities: No Edema, - - R paralumbar TTP Skin: No Rash or Ulcers Neurological: Alert and Oriented x 3, - - LLE weakness with hip flexion, mild decreased ladle mechanic strength in L compared to R Result Diagrams: 03/29/17 09:45 03/30/17 04:45 Additional Lab and Data: . Assess/Plan/Problems-Billing Assessment: This is a 46 yo female with MS, depression and asthma who presented with complaints of weakness. - Patient Problems (1) Weakness Comment: Etiology not clear, onset seemed rather acute Question of UTI, but prelim micro suggests mixed kaylee, no leukocytosis or fever TSH elevated, but would expect more insidious onset if this were due to hypothyroidism Recently stable MRI of the brain Requested neuro consultation Patient feels persistently weak, exam per PT appears near baseline (2) Elevated TSH Comment: TSH 7, low nl free T4 c/o weakness may be related, but her complaints seemed more acute than what would be expected from hypothyroidism Recommend repeat TSH and free T4 in 4-6 weeks prior to initiating treatment (3) Multiple sclerosis Comment: Followed by Dr Barahona Maintained on Tecfidera (4) Depression Comment: Appears stable, continue home prescription (5) Asthma Comment: No acute exacerbation (6) Full code status (7) DVT prophylaxis Comment: SQ Lovenox Status and Disposition: Observation. Pending neuro consultation
[2017-03-30] MEDS ORDERED: Enoxaparin(*) 40 MG/0.4 ML SYR SUBCUT SCH (12:00)
--- NOTE | 2017-03-30 22:00 | RAD ---
Indication: History of MS. Increased lower extremity weakness. Evaluate for new lesions. Comparison: February 27, 2017 MRI. Technique: PureLiFia 1.5 Shanae [id number] with GEM suite. MRI brain without contrast. Report: Diffusion series is negative for acute or subacute ischemia. Susceptibility series is negative for stigmata of hemosiderin deposition to indicate previous hemorrhage. Extensive T2 hyperintense periventricular white matter lesions bilaterally are oriented perpendicular to the corpus callosum and with with involvement of the septal colossal interface without change compared with the February 27, 2017 exam. Smaller foci of T2 hyperintensity are noted at the brainstem. Negative for mass effect. Unremarkable cerebral sulci. Mild prominence of the ventricles without change. Patent basal cisterns. Preserved major intracranial flow-voids. Unremarkable orbital contents. Unremarkable calvarium and skull base. Clear paranasal sinuses and mastoid air spaces. Unremarkable scalp. IMPRESSION: No evidence for change in significant burden of bilateral cerebral white matter and brainstem demyelinating lesions compared with the February 27, 2017 exam.
--- NOTE | 2017-03-30 22:11 | RAD ---
Indication: Multiple sclerosis. Weakness sudden onset 2 days ago. Comparison: March 04, 2016 contrast-enhanced MRI. Technique: Noncontrast MRI cervical spine. Report: There are T2 hyperintense lesions at the level of the dens, C2-C3 through C3-C4 disc space, and centered at the level of the C5-C6 disc space as well as subtle lesions more inferiorly including at the T2, T3, and T4 levels without mass effect or gross change compared with the March 04, 2016 exam. Additional patchy T2 hyperintense lesions evident at the lani and medulla without change. Negative for syringohydromyelia. Normal bone marrow signal throughout the [id number]. Advanced disc space narrowing as well as moderate dorsal disc osteophyte complex at C5-C6 with mild resulting impression on the ventral margin of the thecal sac without significant resulting spinal stenosis. IMPRESSION: Extensive demyelinating lesions of the cervical and visualized proximal thoracic spine as well as the brainstem without significant interval change compared with the contrast-enhanced MRI of March 04, 2016. No definitive new cervical spine demyelinating lesions evident.
--- NOTE | 2017-03-30 23:56 | CONS ---
CC: Shelley Barahona MD, outpatient neurologist * NEUROLOGY CONSULTATION: DATE OF CONSULT: 03/30/17 LOCATION: The patient is an inpatient. REQUESTING PROVIDER: LALI Blanco CHIEF COMPLAINT: Weakness. HISTORY OF PRESENT ILLNESS: Karla Cisneros is a 46-year-old woman with a history of relapsing remitting MS which she reports was diagnosed in 2000, but that she most likely had the disease prior to that. She is currently treated with Tecfidera and in the past has used Betaseron as well as Copaxone. She has been on Tecfidera for at least several years. In the past 2 months or so, she had some flushing with the medication and was instructed to reduce the dose to once daily for approximately 2 weeks and then she returned to twice daily dosing in the past 3 to 4 weeks. She has had no recurrence of flushing. She also had a flu shot approximately 2 weeks ago. She came into the hospital after falling in her apartment on Thursday night. She is not sure if her foot caught on something, but she fell and hit her head on the right side. She still has a slight headache, but otherwise is feeling okay. She reports that she was feeling increased lower extremity weakness prior to this fall for perhaps a week or so. She continues to feel that she is slightly more weak than her baseline, but she has difficulty quantifying how far off from her baseline she is. At her baseline, she has left greater than right lower extremity weakness and left greater than right upper extremity weakness. She has also had optic neuritis on the right in the past. She ambulates with a rollator and has a power wheelchair for longer distances. Her laboratory workup has been mildly abnormal and notable for possible signs of a urinary tract infection, but not overly convincing, and a slightly elevated TSH. She has no known history of thyroid disease. A Neurology consultation was requested to evaluate for the possibility of MS relapse. She denies any recent illnesses or new medications. The patient indicated that on Thursday and Thursday prior to her fall, she did more walking than normal and feels that she may have run herself down in doing that. In addition, the weather has been somewhat unseasonably warm and though she has A/C at home, her heat was recently turned on in her apartment. She is currently able to ambulate but feels a little more weak in her legs than is typical for her. 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 HOME MEDICATIONS: 1. Methylphenidate 36 mg q.a.m. 2. Tecfidera 240 mg b.i.d. 3. Rexulti 2 mg daily. 4. Baclofen 10 mg b.i.d. 5. Amantadine 100 mg b.i.d. 6. Oxybutynin 5 mg b.i.d. 7. Zofran 4 mg q.6 p.r.n. 8. Naproxen 220 mg q.8 p.r.n. 9. Vilazodone 40 mg daily. 10. Maxalt 10 mg p.r.n. migraine pain. ALLERGIES: Include BEE VENOM, ONION, ASPIRIN, PENICILLINS, CITRUS, SULFA DRUGS , CODEINE. SOCIAL HISTORY: The patient lives in an apartment. She does have health aides who come in to help her on a daily basis. REVIEW OF SYSTEMS: As per the HPI, otherwise negative. PHYSICAL EXAM: Vital Signs: Temperature 98.2, blood pressure 105/47, heart rate 86, oxygen saturation 99% on room air. On general examination, she is a pleasantly obese woman in no acute distress. Her heart is in regular rate and rhythm with no murmurs, rubs or gallops. Lungs are clear to auscultation bilaterally. Skin exam reveals multiple tattoos over her arms. She has no extremity edema. There is no joint swelling or erythema. Her affect is appropriate. On neurologic examination, she is fully awake, alert and oriented. Her speech is fluent, but somewhat slow with no obvious dysarthria or aphasia. Cranial nerve examination, pupils are equal, round, and reactive from 3 to 2 mm, but there is an APD on the right. Eye movements are notable for bilateral intranuclear ophthalmoplegias. Visual bliss were full bilaterally. Facial musculature is notable for slight right facial weakness, but good activation on smile bilaterally. Eye closure is normal. Sensation to light touch is intact bilaterally in the face. Hearing was slightly diminished to finger rub on the right. Shoulder shrug was full and symmetric. On motor examination, she had some mildly increased tone in the upper extremities. She had a slight pronator drift on the right. She had approximately grade 5- strength in the deltoids bilaterally, but good strength more distally. In the lower extremities, the right hip flexor was approximately 5- while the left hip flexor was a grade 4, right knee extension and flexion grade 5, left knee extension and flexion grade 4, right ankle dorsiflexion 5- and left ankle dorsiflexion grade 4. Reflexes were 2+ in the upper extremities and at the knees as well as the ankles with upgoing toes bilaterally. [id number] showed some action tremor bilaterally , but no ataxia. She was not able to perform [id number] with the left leg, but with the right side there was no obvious ataxia. Sensory exam is notable for diminished pinprick over the dorsum of the foot bilaterally as well as diminished vibratory sensation, which is worse on the right. Proprioception is intact. She ambulates with a walker with a slow gait. She has diminished clearance secondary to her footdrop bilaterally. She turns en bloc. DIAGNOSTIC STUDIES/LAB DATA: CBC showed a normal profile aside from a low lymphocyte percentage of 14.5%, which is expected in the setting of Tecfidera. The chemistry profile yesterday showed a CO2 of 18, anion gap of 14 with lactate of 2.1, but her gap is normal today. Her calcium is 8. TSH was elevated at 7.44 and free T4 is 0.8. Urinalysis was notable for 1+ protein, negative nitrites, trace leukocyte esterase, 1+ wbc's and 1+ bacteria. I reviewed an MRI scan of her brain from February of 2017, which shows a heavy burden of MS plaques in the periventricular white matter as well as pericallosal fibers as well as the brain stem and cerebellum. There is significant atrophy of the carpus callosum as well as the cerebrum itself with ex vacuo dilatation of the ventricles. As compared to the study done in February of 2016, there were no obvious changes. 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 I will be comparing my examination today to the outpatient notes of Dr. Barahona most recently to see if there has been a major change here, but it does not seem on first glance that she is likely having a significant relapse. It may be that several factors are contributing to a pseudo exacerbation including over exerting herself over the weekend and possibly this mildly elevated TSH as well as her mildly dirty urine. Her urine culture is pending, but it is felt that most likely this is a contamination and not a pathologically important finding. I am going to obtain updated, but noncontrast, MRI scan of her brain and cervical spine to see if there are any obvious new lesions which would push one in the direction of treating with steroids. I note that she was last treated with steroids little over a year ago. Otherwise, I would have her continue working with physical therapy and I will follow up tomorrow after her scans are done. Thank you for this consultation. [id number]/[facility] #: [id number] SHIRA
[2017-03-31] MEDS: Methylphenidate ER TAB* 18 MG PO SCH (09:29)
[2017-03-31] MEDS: Oxybutynin TAB* 5 MG PO SCH (09:29)
[2017-03-31] MEDS: Baclofen TAB* 10 MG PO SCH (09:31)
[2017-03-31] MEDS: BREXPIPRAZOLE 2 MG PO SCH (09:31)
[2017-03-31] MEDS: Amantadine CAP* 100 MG PO SCH (09:31)
[2017-03-31] MEDS: DIMETHYL FUMARATE 240 MG PO SCH (09:32)
[2017-03-31] MEDS: Nitrofurantoin Macrocrystals* 100 MG CAP PO SCH (09:32)
[2017-03-31] MEDS: VILAZODONE 40 MG PO SCH (09:33)
[2017-03-31 09:34] VITALS: BP 98/39
[2017-03-31] MEDS: Naproxen TAB* 250 MG PO PRN (09:37)
--- NOTE | 2017-04-01 01:54 | DS ---
CC: Dr. Chandler; Dr. Barahona * DISCHARGE SUMMARY: DATE OF ADMISSION: 03/29/17 DATE OF DISCHARGE: 03/31/17 PRIMARY CARE PROVIDER: Dr. Chandler. PRIMARY NEUROLOGIST: Shelley Barahona MD CONSULTING NEUROLOGIST: Margo Chance MD DISCHARGING PROVIDER: LALI Galindo. SUPERVISING PHYSICIAN: Fabian Whyte MD * (DICTATED BY LALI GALINDO) PRIMARY DISCHARGE DIAGNOSES: 1. Weakness - no clear etiology, but the patient is near baseline at the time of discharge. 2. Elevated TSH - recommend repeat TSH in 4 to 6 weeks, thyroid replacement not initiated at the time of discharge. 3. Abnormal urinalysis - no evidence of significant growth on culture. SECONDARY DISCHARGE DIAGNOSES: 1. Multiple sclerosis without evidence of acute flare, followed by Dr. Barahona. 2. Depression, which appears to be stable. 3. Asthma without acute exacerbation. DISCHARGE MEDICATIONS: 1. Amantadine 100 mg p.o. twice daily. 2. Baclofen 10 mg p.o. twice daily. 3. Rexulti 2 mg p.o. daily. 4. Tecfidera 240 mg p.o. twice daily. 5. Ritalin extended release 36 mg p.o. daily. 6. Naproxen 220 mg q.8 hours as needed for pain. 7. Zofran 4 mg p.o. q.6 hours as needed for nausea. 8. Oxybutynin 5 mg p.o. twice daily. 9. Maxalt 10 mg p.o. q.8 hours as needed. 10. Viibryd 40 mg p.o. daily. Medication changes: None. HOSPITAL IMAGIN. CT of the brain shows no acute pathology. She does have diffuse involutional change with chronic small vessel changes. 2. Chest x-ray shows no acute process. 3. CT of the cervical spine shows mild degenerative disk disease and osteoarthritis, most pronounced at C5-6 but no acute injury. 4. Thoracic x-ray is unremarkable without any acute process. 5. MRI of the brain without contrast shows no evidence for change and significant burden of bilateral cerebral white matter and brain stem demyelinating lesions compared to last image from 02/27/17. 6. Cervical spine MRI shows extensive demyelinating lesions of the cervical and visualized proximal thoracic spine as well as brain stem without significant interval change compared to the contrast enhanced MRI of 03/04/16. No definitive new cervical demyelinating lesions evident. HOSPITAL COURSE: This is a 46-year-old female with multiple sclerosis followed by Dr. Barahona who has been fairly stable on treatment for quite some time who presented to the emergency department with complaints of weakness and fall. The patient's symptoms started rather suddenly in the overnight hours when she was ambulating back from the bathroom. She suddenly felt weak and fell to the ground. The initial labs were really unremarkable. No leukocytosis. No significant metabolic derangements, although her lactic acid was mildly elevated at 2.1. Her TSH was also noted to be elevated at 7.44, but a free T4, which was still within normal limits at 0.8 and her urinalysis was slightly abnormal with positive leuk esterase, white blood cells and bacteria. Final culture showed no growth of clinically significant organisms. The patient initially was thought to perhaps have a urinary tract infection based on her urinalysis and that was blamed for her weakness. As mentioned above, cultures did not grow anything of significance and she had no signs of systemic infection. The patient did not feel significantly better after rehydration and a period of observation and Neurology was asked to consult for the possibility of her weakness being a result of a flare of her multiple sclerosis. Repeat imaging of her brain and cervical spine were completed per recommendation of Neurology, which did not show any significant change from prior imaging and treatment with IV steroids was not felt to be necessary. At the time of discharge, the patient states that she felt near her baseline, although still somewhat weak but able to navigate her house and felt safe to return home. She was evaluated for urinary retention during her hospital stay given that she has had multiple abnormal urine tests, but postvoid residual was less than 50 mL when checked and the patient denied any difficulty urinating or hesitancy. DISPOSITION AND FOLLOWUP PLAN: The patient is being discharged to home without any changes to her home medications. Recommend that she follow up with Dr. Barahona regarding this hospital stay. She has a followup with him established for early February and she is encouraged to call his office if her symptoms persist or become worse. She did have a noted elevated TSH. This is not felt to be a significant contributor to her acute symptoms, but certainly would recommend repeating a TSH and free T4 in approximately 4 to 6 weeks. If urinary concerns persist, may consider outpatient urology followup. LALI GALINDO [id number]/[facility] #: [id number] [facility] HOSPITALSerena
--- NOTE | 2017-04-03 12:40 | ED ---
David Baez Alfonso, scribed for Gilles Phelan MD on 03/29/17 at 0824 . Adult Trauma - HPI Summary HPI Summary: This patient is a 46 year old F BIBA to [facility] s/p a fall while walking to the bathroom from bed at approximately 0230. The patient rates the pain 5/10 in severity. Symptoms aggravated by nothing. Symptoms alleviated by nothing. Patient reports weakness, fatigue, head trauma (right sided), headache (right sided), neck stiffness, middle back pain, and loss of appetite. Patient denies vomiting, diarrhea, and low back pain. She is unsure about LOC, believes she may have had it after questioning. She utilizes a walker in her home. She denies taking blood thinning medications. 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 - History of Current Complaint Chief Complaint: EDHeadache Stated Complaint: FALL Time Seen by Provider: 03/29/17 08:08 Hx Obtained From: Patient Mechanism of Injury: Fall Loss of Consciousness: unsure Onset/Duration: Started Hours Ago - 0230 today, Still Present Onset of Pain: Post Accident Current Severity: Moderate Pain Intensity: 5 Pain Scale Used: 0-10 Numeric Aggravating Factor(s): Nothing Alleviating Factor(s): Nothing Associated Signs & Symptoms: Positive: Other: - weakness, fatigue, head trauma ( right sided), headache (right sided), neck stiffness, middle back pain, and loss of appetite. Patient denies vomiting, diarrhea, and low back pain. She is unsure about LOC, believes she may have had it after questioning. - Additional Pertinent History Primary Care Physician: [id number] - Allergy/Home Medications Allergies/Adverse Reactions: Allergies Allergy/AdvReac Type Severity Reaction Status Date / Time Bee Venom Allergy Severe See Comment Verified 03/29/17 11:01 Onion Allergy Severe See Comment Verified 03/29/17 11:01 Aspirin Allergy Intermediate Nausea Verified 03/29/17 11:01 Penicillins [PCN] Allergy Intermediate See Comment Verified 03/29/17 11:01 Ogle Allergy Unknown See Comment Verified 03/29/17 11:01 Sulfa Drugs Allergy Unknown Unknown Verified 03/29/17 11:01 Reaction Details Codeine AdvReac Severe See Comment Verified 03/29/17 11:01 PMH/Surg Hx/FS Hx/Imm Hx Endocrine/Hematology History: Denies: Hx Diabetes, Hx Thyroid Disease, Hx Anemia, Hx Unexplained Bleeding, Other Endocrine/Hematological Disorders Cardiovascular History: Denies: Hx Aneurysm, Hx Angina, Hx Angioplasty, Hx Auto Implanted Cardiovert Defib, Hx Cardiac Arrest, Hx Cardiomegaly, Hx Congenital Heart Disease, Hx Congestive Heart Failure, Hx Coronary Artery Disease, Hx Deep Vein Thrombosis, Hx Embolism, Hx Hypercholesterolemia, Hx Hypotension, Hx Hypertension, Hx Pacemaker/ICD, Hx Peripheral Vascular Disease, Hx Rheumatic Fever, Hx Syncope, Hx Valvular Heart Disease, Other Cardiovascular Problems/Disorders Respiratory History: Reports: Hx Asthma Denies: Hx Chronic Bronchitis, Hx Chronic Obstructive Pulmonary Disease (COPD ), Hx Cystic Fibrosis, Hx Lung Cancer, Hx Pleural Effusion, Hx Pneumonia, Hx Pulmonary Edema, Hx Pulmonary Embolism, Hx Seasonal Allergies, Hx Sleep Apnea, Other Respiratory Problems/Disorders GI History: Reports: Hx Gastroesophageal Reflux Disease, Hx Ulcer Denies: Hx Gastrointestinal Bleed, Hx Hiatal Hernia History: Reports: Other Problems/Disorders - accidents; pt reports sometimes unable to make it to [facility] on time Denies: Hx Dialysis, Hx Kidney Stones, Hx Renal Disease Musculoskeletal History: Reports: Hx Back Problems, Other Musculoskeletal History - MS Denies: Hx Arthritis, Hx Bursitis, Hx Congenital Bone Abnormalities, Hx Fibromyalgia, Hx Gout, Hx Orthopedic Injury, Hx Osteoporosis, Hx Scoliosis, Hx Tendonitis Sensory History: Reports: Hx Contacts or Glasses, Other Sensory Impairments - Numbness in feet Denies: Hx Cataracts, Hx Eye Injury, Hx Eye Prosthesis, Hx Glaucoma, Hx Legally Blind, Hx Macular Degeneration, Hx Vision Problem, Hx Deafness, Hx Hearing Aid, Hx Hearing Problem Opthamlomology History: Reports: Hx Contacts or Glasses, Other Sensory Impairments - Numbness in feet Denies: Hx Cataracts, Hx Eye Injury, Hx Eye Prosthesis, Hx Glaucoma, Hx Legally Blind, Hx Macular Degeneration, Hx Vision Problem Neurological History: Reports: Hx Headaches, Hx Migraine, Hx Nerve Disease, Other Neuro Impairments/Disorders - MS Denies: Hx Dementia, Hx Developmental Delay, Hx Seizures, Hx Spinal Cord Injury, Hx Transient Ischemic Attacks (TIA) Psychiatric History: Reports: Hx Anxiety, Hx Depression, Hx Suicide Attempt, Hx Substance Abuse Denies: Hx Attention Deficit Hyperactivity Disorder, Hx Eating Disorder, Hx Panic Disorder, Hx Post Traumatic Stress Disorder, Hx Inpatient Treatment, Hx Community Mental Health Tx, Hx Schizophrenia, Hx Bipolar Disorder, Hx of Violent Episodes Against Others, Other Psychiatric Issues/Disorders - Cancer History Hx Chemotherapy: No Hx Radiation Therapy: No - Surgical History Surgery Procedure, Year, and Place: MOLARS REMOVED 2010 & 2011 Hx Anesthesia Reactions: No - Immunization History Date of Tetanus Vaccine: Unknown Date of Influenza Vaccine: Unk re: Fall 2014 Infectious Disease History: No Infectious Disease History: Denies: Hx Clostridium Difficile, Hx Hepatitis, Hx Human Immunodeficiency Virus (HIV), Hx of Known/Suspected MRSA, Hx Shingles, Hx Tuberculosis, Hx Known/ Suspected VRE, Hx Known/Suspected VRSA, History Other Infectious Disease, Traveled Outside the [place] in Last 30 Days - Family History Known Family History: Positive: Diabetes Family History: FHx of spina bifida - Social History Alcohol Use: None 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 Negative: Abdominal Pain, Vomiting, Diarrhea, Nausea Negative: dysuria, hematuria Positive: Other - Fall, neck stiffness, middle back pain; negative low back pain. Negative: Myalgia, Edema Negative: Rash Neurological: Other - Head trauma (right sided), weakness, fatigue, headache ( right sided); Negative dizziness All Other Systems Reviewed And Are Negative: Yes Physical Exam - Summary Physical Exam Summary: Constitutional: Well-developed, Well-nourished, Alert, Cooperative Skin: Warm, Dry HENT: Normocephalic; No Racoons eyes; No battles sign; No abrasion; No contusion ; No hemotympanum; No maxilla facial tenderness or instability; Dentition are smooth; No dental trauma; No trismus Eyes: EOM normal, PERRL Neck: Trachea is midline. No stridor; No JVD; No step off; No posterior cervical spine tenderness Cardio: Rhythm regular, rate normal Heart sounds normal; Intact distal pulses; The pedal pulses are 2+ and symmetric. Radial pulses are 2+ and symmetric. Pulmonary/Chest wall: Effort normal; Breath sounds normal; Equal chest rise; No flail segment; No rib tenderness; No sternal tenderness Abd: Soft, Appearance normal. No distension; No tenderness; No palpable pulsatile mass; No Cullens sign; No Faith-Turners sign Musculoskeletal: Tenderness at T1-T5. Full ROM and no tenderness at hips, ankles , shoulders, elbows and knees; No joint swelling; No step off or deformity of the spine; Pelvis is stable to lateral compression and rock Neuro: Alert, Oriented x3, Strength 5/5 all extremities. : No blood at urethral meatus Psych: Mood and affect Normal Triage Information Reviewed: Yes Vital Signs On Initial Exam: Initial Vitals Temp Pulse Resp BP Pulse Ox 98.1 F 90 16 114/59 96 03/29/17 04:21 03/29/17 04:21 03/29/17 04:21 03/29/17 04:21 03/29/17 04:21 Vital Signs Reviewed: Yes Diagnostics - Vital Signs Vital Signs Temp Pulse Resp BP Pulse Ox 03/29/17 04:21 98.1 F 90 16 114/59 96 - Laboratory Lab Results: Lab Results 03/29/17 03/29/17 03/29/17 Range/Units 09:25 09:45 09:45 WBC 7.5 (3.5-10.8) 10^3/ul RBC 4.59 (4.0-5.4) 10^6/ul Hgb 13.6 (12.0-16.0) g/dl Hct 40 (35-47) % MCV 86 (80-97) fL MCH 30 (27-31) pg MCHC 34 (31-36) g/dl RDW 14 (10.5-15) % Plt Count 295 (150-450) 10^3/ul MPV 9 (7.4-10.4) um3 Neut % (Auto) 76.3 (38-83) % Lymph % (Auto) 14.5 L (25-47) % [place] % (Auto) 8.4 (1-9) % Eos % (Auto) 0.2 (0-6) % Baso % (Auto) 0.6 (0-2) % Absolute Neuts (auto) 5.7 (1.5-7.7) 10^3/ul Absolute Lymphs (auto) 1.1 (1.0-4.8) 10^3/ul Absolute Monos (auto) 0.6 (0-0.8) 10^3/ul Absolute Eos (auto) 0 (0-0.6) 10^3/ul Absolute Basos (auto) 0 (0-0.2) 10^3/ul Absolute Nucleated RBC 0.01 10^3/ul Nucleated RBC % 0.1 Sodium 136 (133-145) mmol/L Potassium 5.0 (3.5-5.0) mmol/L Chloride 104 (101-111) mmol/L Carbon Dioxide 18 L (22-32) mmol/L Anion Gap 14 H (2-11) mmol/L BUN 8 (6-24) mg/dL Creatinine 0.74 (0.51-0.95) mg/dL Est GFR ( Amer) 108.2 (>60) Est GFR (Non-Af Amer) 84.1 (>60) BUN/Creatinine Ratio 10.8 (8-20) Glucose 88 (70-100) mg/dL Calcium 8.8 (8.6-10.3) mg/dL Magnesium 2.2 (1.9-2.7) mg/dL Total Bilirubin 0.50 (0.2-1.0) mg/dL AST 39 (13-39) U/L ALT 17 (7-52) U/L Alkaline Phosphatase 80 (34-104) U/L Troponin I 0.00 (<0.04) ng/mL Total Protein 7.0 (6.4-8.9) g/dL Albumin 4.0 (3.2-5.2) g/dL Globulin 2.9 (2-4) g/dL Albumin/Globulin Ratio 1.4 (1-3) TSH 7.44 H (0.34-5.60) mcIU/mL Urine Color Yellow Urine Appearance Cloudy Urine pH 7.0 (5-9) Ur Specific [place] 1.028 (1.010-1.030) Urine Protein 1+(30 mg/dl) H (Negative) Urine Ketones Negative (Negative) Urine Blood Negative (Negative) Urine Nitrate Negative (Negative) Urine Bilirubin Negative (Negative) Urine Urobilinogen Negative (Negative) Ur Leukocyte Esterase Trace H (Negative) Urine WBC (Auto) 1+(6-10/hpf) H (Absent) Urine RBC (Auto) Absent (Absent) Ur Squamous Epith Cells Present H (Absent) Urine Bacteria 1+ H (Absent) Urine Glucose Negative (Negative) Result Diagrams: 03/29/17 09:45 03/29/17 11:10 Lab Statement: Any lab studies that have been ordered have been reviewed, and results considered in the medical decision making process. - Radiology Thoracic Spine X-Ray Radiology Interpretation Completed By: Radiologist - UNREMARKABLE RADIOGRAPH OF THE THORACIC SPINE. ED physician has reviewed this radiology report and agrees. CXR Radiology Interpretation Completed By: Radiologist - NO ACTIVE CARDIOPULMONARY DISEASE. ED physician has reviewed this radiology report and agrees. - CT C-Spine CT Interpretation Completed By: Radiologist - 1. MILD DEGENERATIVE DISC DISEASE AND OSTEOARTHRITIS MOST PRONOUNCED AT C5-C6. 2. NO ACUTE OSSEOUS INJURY TO THE CERVICAL SPINE. ED physician has reviewed this radiology report and agrees. Brain CT Interpretation Completed By: Radiologist - NO ACUTE INTRACRANIAL PATHOLOGY. DIFFUSE INVOLUTIONAL CHANGE WITH CHRONIC SMALL VESSEL ISCHEMIC CHANGES. ED physician has reviewed this radiology report and agrees. - EKG 0842 Cardiac Rate: NL - BPM 71 EKG Rhythm: Sinus Rhythm EKG Interpretation: No STEMI. Adult Trauma Course/Dx - Course Assessment/Plan: This patient is a 46 year old F BIBA to [facility] s/p a fall while walking to the bathroom from bed at approximately 0230. The patient rates the pain 5/10 in severity. Symptoms aggravated by nothing. Symptoms alleviated by nothing. Patient reports weakness, fatigue, head trauma (right sided), headache (right sided), neck stiffness, middle back pain, and loss of appetite. Patient denies vomiting, diarrhea, and low back pain. She is unsure about LOC, believes she may have had it after questioning. She utilizes a walker in her home. She denies taking blood thinning medications. 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 An EKG reveals NSR. CXR reveals NO ACTIVE CARDIOPULMONARY DISEASE. ED physician has reviewed this radiology report and agrees. CT C-Spine reveals 1. MILD DEGENERATIVE DISC DISEASE AND OSTEOARTHRITIS MOST PRONOUNCED AT C5-C6. 2. NO ACUTE OSSEOUS INJURY TO THE CERVICAL SPINE. ED physician has reviewed this radiology report and agrees. CT Brain reveals NO ACUTE INTRACRANIAL PATHOLOGY. DIFFUSE INVOLUTIONAL CHANGE WITH CHRONIC SMALL VESSEL ISCHEMIC CHANGES. ED physician has reviewed this radiology report and agrees. Thoracic Spine X-Ray reveals UNREMARKABLE RADIOGRAPH OF THE THORACIC SPINE. ED physician has reviewed this radiology report and agrees. Consulted Dr. Whyte (hospitalist) who will see the patient in the ED. After consulting the patient in the ED, Dr. Whyte agrees to admit. Patient will be admitted with follow up from Dr. Whyte. The patient is agreeable with this plan. - Diagnoses Provider Diagnoses: UTI (urinary tract infection), Syncope, Multiple sclerosis - Physician Notifications Discussed Care Of Patient With: Fabian Whyte Time Discussed With Above Provider: 11:21 Instructed by Provider To: Other - Consulted Dr. Whyte (hospitalist) who will see the patient in the ED. After consulting the patient in the ED, Dr. Whyte agrees to admit. Discharge - Discharge Plan Condition: Good Disposition: ADMITTED TO [facility] documentation as recorded by the David mark Alfonso accurately reflects the service I personally performed and the decisions made by Zhane dunn Jerry, MD.
== END 2017-03-31 11:45 | disposition home or self-care (01) ==
LOC: ED 04:20 → MEDTELE 11:47 → SSU 12:18
PROVIDERS: ADMIT Internal Medicine; ATTEND Internal Medicine
DX: R53.1 Weakness (principal); R94.6 Abnormal results of thyroid function studies; R82.90 Unspecified abnormal findings in urine; G35 Multiple sclerosis; F32.9 Major depressive disorder, single episode, unspecified; J45.909 Unspecified asthma, uncomplicated; Z79.899 Other long term (current) drug therapy; Z88.0 Allergy status to penicillin; Z88.2 Allergy status to sulfonamides
CPT/HCPCS: 36415; 70450; 70551; 71010; 72070; 72125; 72141; 80048; 80053; 81003; 81015; 83605; 83735; 84439; 84443; 84484; 85025; 86140; 87086; 93005; 96361; 96365; 96372; 99284; A9270-GY; G0378; G8978-GP-CH; G8978-GP-CK; G8979-GP-CH; G8979-GP-CJ; G8980-GP-CH; J0696; J1650

== ENCOUNTER → 2017-05-26 09:20 | Day surgery (SDC) | payer MEDICARE, MEDICAID ==
[~2017-05-26 09:20] MED LIST: Acetaminophen IV 1GM/100ML * 1,000 MG/100 ML VIAL IVPB ONE; Acetaminophen IV 1GM/100ML * 100 ML ONE; Buffered Lidocaine 0.9% SYRIN* 5 ML/SYR SYRINGE INTRADERM ONE; Buffered Lidocaine 0.9% SYRIN* 5 ML/SYR SYRINGE ONE; Bupivacaine 0.25% SDV* 30 ML ONE; Clindamycin 900 MG IVPREMIX(* 900 MG/50 ML SDV IV ONE; Dexamethasone IV* 4 MG/ML 1 ML (4 MG) ONE; DiMENhydriNATE IV* 50 MG/ML VIAL IV PUSH PRN; DiMENhydriNATE IV* 50 MG/ML VIAL ONE; Famotidine IV* 10 MG/ML 2 ML (20 mg) IV ONE; Famotidine IV* 10 MG/ML 2 ML (20 mg) ONE; HYDROmorphone INJ* 1 MG/ML CARPUJECT SYRINGE ONE; Heparin VIAL(*) 5000 UNITS/ML VIAL (FIVE THOUSAND) ONE; Ketorolac INJ* 30 MG/ML 1 ML VIAL ONE; Lidocaine 1% MPF wEPI 200,000* 30 ML SDV ONE; Lidocaine 2% PF * 5 ML VIAL ONE; Midazolam* 1 MG/ML 2 ML VIAL (2 MG) ONE; Ondansetron INJ* 2 MG/ML VIAL ONE; Propofol* 10 MG/ML 20 ML BTL IV PUSH ONE; Scopolamine 1.5 mg* PATCH ONE; Scopolamine 1.5 mg* PATCH TRANSDERM ONE; fentaNYL* 50 MCG/ML 2 ML VIAL (100 MCG VIAL) ONE; oxyCODONE TAB* 5 MG TAB ONE; oxyCODONE TAB* 5 MG TAB PO PRN
[2017-05-26] MEDS: HYDROmorphone INJ* 1 MG/ML CARPUJECT SYRINGE IV PRN ×4 (17:06→17:38)
[2017-05-26 19:29] VITALS: BP 134/67
== END | disposition home or self-care (01) ==
LOC: OR 09:20
PROVIDERS: ATTEND Plastic Surgery
DX: N62 Hypertrophy of breast (principal); G47.33 Obstructive sleep apnea (adult) (pediatric); E03.9 Hypothyroidism, unspecified; K21.9 Gastro-esophageal reflux disease without esophagitis; M19.90 Unspecified osteoarthritis, unspecified site; M54.9 Dorsalgia, unspecified; G35 Multiple sclerosis; M54.2 Cervicalgia
CPT/HCPCS: 88305; A9270-GY; J1100; J1170; J1240; J1644; J1885; J2001; J2250; J2405; J2704; J3010

== ENCOUNTER 2017-06-17 10:12 | Inpatient (IN) | payer MEDICARE, MEDICAID ==
--- NOTE | 2017-06-17 10:38 | ED ---
Lower Extremity - HPI Summary HPI Summary: Patient is a 47yo F with a history of MS treated by Dr. Barahona arrives to the ED with CC of left hip pain which began this morning prior to getting out of her recliner. She had breast reduction surgery on 05/26/17 and has been sleeping in a recliner since that time since she is unable to sleep on her sides. Never history of low back pain to this degree - since the surgery has been worsening. She notes to awaking with pain in the left groin/hip and has been unable to bear weight. She has assist with a walker at baseline x 2 years and needs it 100% of the time. She has never had groin/hip pain in the past. Her MS is well controlled with medications and has not had a flare up in many years. Shed denies loss of vision, diplopia, weakness, and/or cerebellar symptoms. No prolonged heat exposure or infection. She is currently not taking steroids. - History of Current Complaint Chief Complaint: EDHipPelvisInjury Stated Complaint: LEFT HIP PAIN Time Seen by Provider: 06/17/17 10:18 Hx Obtained From: Patient Mechanism Of Injury: Unknown Onset of Pain: Hours Onset/Duration: Hours Severity Initially: Moderate Severity Currently: Moderate Pain Intensity: 9 Pain Scale Used: 0-10 Numeric Timing: Constant Location: Is Discrete @ - left inguinal ligament pain Associated Signs And Symptoms: Negative: Swelling, Redness, Bruising, Weakness, Dizziness Aggravating Factor(s): Weight Bearing Alleviating Factor(s): Rest Able to Bear Weight: No - Risk Factors Gout Risk Factors: Age Over 40 DVT Risk Factors: Negative Septic Arthritis Risk Factor: Negative - Allergies/Home Medications Allergies/Adverse Reactions: Allergies Allergy/AdvReac Type Severity Reaction Status Date / Time Bee Venom Allergy Severe See Comment Verified 05/26/17 09:47 Onion Allergy Severe See Comment Verified 05/26/17 09:47 Aspirin Allergy Intermediate Nausea Verified 05/26/17 09:47 Penicillins [PCN] Allergy Intermediate See Comment Verified 05/26/17 09:47 [place] Allergy Unknown See Comment Verified 05/26/17 09:47 Sulfa Drugs Allergy Unknown Unknown Verified 05/26/17 09:47 Reaction Details Home Medications: Home Medications Ascorbic Acid TAB* [Vitamin C TAB*] 500 mg PO DAILY 06/17/17 [History Confirmed 06/17/17] Ferrous Sulfate TAB* 325 mg PO DAILY 06/17/17 [History Confirmed 06/17/17] Levothyroxine TAB* [Synthroid TAB*] 75 mcg PO DAILY 06/17/17 [History Confirmed 06/17/17] Methylphenidate ER TAB* [Concerta ER TAB*] 36 mg PO DAILY 06/17/17 [History Confirmed 06/17/17] Multivitamins/Minerals TAB* [Theragran/minerals TAB*] 1 tab PO DAILY 06/17/17 [ History Confirmed 06/17/17] Omeprazole CAP* [Prilosec CAP* 20 MG] 20 mg PO DAILY 06/17/17 [History Confirmed 06/17/17] Oxybutynin TAB* [Ditropan TAB*] 7.5 mg PO QPM 06/17/17 [History Confirmed ] PMH/Surg Hx/FS Hx/Imm Hx Previously Healthy: Yes Endocrine/Hematology History: Reports: Hx Thyroid Disease Denies: Hx Diabetes, Hx Anemia, Hx Unexplained Bleeding, Other Endocrine/ Hematological Disorders Cardiovascular History: Denies: Hx Aneurysm, Hx Angina, Hx Angioplasty, Hx Auto Implanted Cardiovert Defib, Hx Cardiac Arrest, Hx Cardiomegaly, Hx Congenital Heart Disease, Hx Congestive Heart Failure, Hx Coronary Artery Disease, Hx Deep Vein Thrombosis, Hx Embolism, Hx Hypercholesterolemia, Hx Hypotension, Hx Hypertension, Hx Pacemaker/ICD, Hx Peripheral Vascular Disease, Hx Rheumatic Fever, Hx Syncope, Hx Valvular Heart Disease, Other Cardiovascular Problems/Disorders Respiratory History: Reports: Hx Asthma - as a child, Hx Sleep Apnea - newly diagnosed Denies: Hx Chronic Bronchitis, Hx Chronic Obstructive Pulmonary Disease (COPD ), Hx Cystic Fibrosis, Hx Lung Cancer, Hx Pleural Effusion, Hx Pneumonia, Hx Pulmonary Edema, Hx Pulmonary Embolism, Hx Seasonal Allergies, Other Respiratory Problems/Disorders GI History: Reports: Hx Gastroesophageal Reflux Disease, Hx Ulcer Denies: Hx Gastrointestinal Bleed, Hx Hiatal Hernia History: Reports: Other Problems/Disorders - accidents; pt reports sometimes unable to make it to [place] on time Denies: Hx Dialysis, Hx Kidney Stones, Hx Renal Disease Musculoskeletal History: Reports: Hx Arthritis - knees, right hand, Hx Back Problems, Other Musculoskeletal History - MS Denies: Hx Bursitis, Hx Congenital Bone Abnormalities, Hx Fibromyalgia, Hx Gout, Hx Orthopedic Injury, Hx Osteoporosis, Hx Scoliosis, Hx Tendonitis Sensory History: Reports: Hx Contacts or Glasses, Other Sensory Impairments - Numbness in feet Denies: Hx Cataracts, Hx Eye Injury, Hx Eye Prosthesis, Hx Glaucoma, Hx Legally Blind, Hx Macular Degeneration, Hx Vision Problem, Hx Deafness, Hx Hearing Aid, Hx Hearing Problem Opthamlomology History: Reports: Hx Contacts or Glasses, Other Sensory Impairments - Numbness in feet Denies: Hx Cataracts, Hx Eye Injury, Hx Eye Prosthesis, Hx Glaucoma, Hx Legally Blind, Hx Macular Degeneration, Hx Vision Problem Neurological History: Reports: Hx Headaches - at times, Hx Migraine - in the past, Hx Nerve Disease, Other Neuro Impairments/Disorders - MS Denies: Hx Dementia, Hx Developmental Delay, Hx Seizures, Hx Spinal Cord Injury, Hx Transient Ischemic Attacks (TIA) Psychiatric History: Reports: Hx Anxiety, Hx Depression, Hx Suicide Attempt, Hx Substance Abuse Denies: Hx Attention Deficit Hyperactivity Disorder, Hx Eating Disorder, Hx Panic Disorder, Hx Post Traumatic Stress Disorder, Hx Inpatient Treatment, Hx Community Mental Health Tx, Hx Schizophrenia, Hx Bipolar Disorder, Hx of Violent Episodes Against Others, Other Psychiatric Issues/Disorders - Cancer History Hx Chemotherapy: No Hx Radiation Therapy: No - Surgical History Surgery Procedure, Year, and Place: MOLARS REMOVED 2010 & [address] Hx Anesthesia Reactions: No - Immunization History Date of Tetanus Vaccine: Unknown Date of Influenza Vaccine: Unk re: Fall 2014 Infectious Disease History: No Infectious Disease History: Denies: Hx Clostridium Difficile, Hx Hepatitis, Hx Human Immunodeficiency Virus (HIV), Hx of Known/Suspected MRSA, Hx Shingles, Hx Tuberculosis, Hx Known/ Suspected VRE, Hx Known/Suspected VRSA, History Other Infectious Disease, Traveled Outside the [place] in Last 30 Days - Family History Known Family History: Positive: Unknown, Diabetes Family History: FHx of spina bifida - Social History Occupation: Unemployed Lives: Alone Alcohol Use: None 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 Hx Substance Use: No Substance Use Type: Reports: None Hx Tobacco Use: No Smoking Status (MU): Never Smoked Tobacco Type: Cigarettes Amount Used/How Often: 2 cigaretts/week Length of Time of Smoking/Using Tobacco: 2 months Have You Smoked in the Last Year: No Review of Systems Constitutional: Negative Negative: Fever, Chills, Fatigue, Skin Diaphoresis Cardiovascular: Negative Respiratory: Negative Positive: no symptoms reported, see HPI Positive: Arthralgia - left hip Psychological: Normal All Other Systems Reviewed And Are Negative: Yes Physical Exam Triage Information Reviewed: Yes Vital Signs On Initial Exam: Initial Vitals Temp Pulse Resp BP Pulse Ox 98.8 F 117 16 131/62 95 06/17/17 10:13 06/17/17 10:13 06/17/17 10:13 06/17/17 10:13 06/17/17 10:13 Vital Signs Reviewed: Yes Appearance: Positive: Well-Appearing, No Pain Distress Skin: Positive: Skin Color Reflects Adequate Perfusion Head/Face: Positive: Normal Head/Face Inspection Eyes: Positive: EOMI, LUIS, Conjunctiva Clear Neck: Positive: Supple, Nontender, No Lymphadenopathy Respiratory/Lung Sounds: Positive: Clear to Auscultation, Breath Sounds Present Cardiovascular: Positive: Normal, RRR, Pulses are Symmetrical in both Upper and Lower Extremities Musculoskeletal: Positive: Pain @ - left inguinal ligament pain Neurological: Positive: Sensory/Motor Intact Psychiatric: Positive: Normal Diagnostics - Vital Signs Vital Signs Temp Pulse Resp BP Pulse Ox 06/17/17 10:13 98.8 F 117 16 131/62 95 - Laboratory Lab Statement: Any lab studies that have been ordered have been reviewed, and results considered in the medical decision making process. Re-Evaluation - Re-Evaluation First Eval Change: Unchanged - continues with pain despite the hydrocodone and given morphine 4mg IV Second Eval Change: Improved - morphine improved the pain, however still unable to ambulate Lower Extremity Course/Dx - Course Course Of Treatment: The pain in the groin is not aggravated by direct pressure or repetitive flexion of the hip. D/t recent back pain, the pain could be referred pain from higher lumbar spinal nerve roots L2-L3. While osteonecrosis is high in repeated gluococorticoid use with MS, she has not used steroids in many years and has never been on a long course of treatment. Obtained CT spine lumbar and hip/pelvis xray to assess. Negative for any findings. Ct pelvis which is also negative. Hydrocodone given in the ED with moderate effect. Pain returns and patient is then given morphine 4mg with effect. Still unable to ambulate. Dr Villeda called at 1:40pm who agrees to come see the patient and agrees to admit. - Diagnoses Provider Diagnoses: Left inguinal pain Discharge - Discharge Plan Condition: Stable Disposition: ADMITTED TO [facility] Images - Images Full Body (No Head): 1 - left inguinal ligament pain
[2017-06-17] MEDS ORDERED: HYDROcodone/ACETAMIN 5-325 MG* 1 TAB PO ONE (10:44)
--- NOTE | 2017-06-17 11:03 | RAD ---
Indication: Left hip pain. 2 views of left hip and an AP view the pelvis demonstrates pelvic ring to be intact. No definite fracture is noted although there is suboptimal positioning of the left femur. Pelvic ring is intact. IMPRESSION: Limited left hip positioning demonstrates no definite fracture.
--- NOTE | 2017-06-17 11:53 | RAD ---
Indication: Unable to ambulate with a walker. LEFT hip pain. History of MS. No preceding injury. Comparison: August 11, 2016 CT. Technique: Noncontrast CT lumbar sacral spine. Multiplanar reformation. Report: No suspicious finding of the visualized intra-abdominal and retroperitoneal viscera. Normal diameter abdominal aorta and common iliac arteries. Negative for retroperitoneal hematoma. Negative for fracture or spondylolysis at any level. Normal vertebral alignment without spondylolisthesis at any level. Minimal vertebral endplate osteophytosis throughout. Unremarkable facet joints. T12-L1: Unremarkable disc level for age without acquired spinal stenosis. L1-L2: Unremarkable disc level for age without acquired spinal stenosis. L2-L3: Unremarkable disc level for age without acquired spinal stenosis. L3-L4: Unremarkable disc level for age without acquired spinal stenosis. L4-L5: Mild annular disc bulge without significant interval change. Negative for significant acquired central canal or foraminal stenosis. L5-S1: Unremarkable disc level for age without acquired spinal stenosis. IMPRESSION: Mild degenerative spondylosis. No CT evidence for significant acquired spinal stenosis.
[2017-06-17] MEDS ORDERED: Morphine INJ* 4 MG/ML 1 ML CARPUJECT IV ONE (12:49)
--- NOTE | 2017-06-17 12:59 | RAD ---
INDICATION: Left hip pain, unable to walk, history of multiple sclerosis. COMPARISON: Comparison is made with a prior CT of the abdomen and pelvis from August 11, 2016 correlation is also made with a prior x-ray study of the left hip from June 17, 2017. TECHNIQUE: Contiguous axial sections were obtained through the pelvis without intravenous or oral contrast. Images were reconstructed in the coronal and sagittal planes. FINDINGS: The bones are in normal alignment. No fracture is seen. Joint spaces appear maintained. There is mild bilateral osteoarthritic change in the hips. No joint effusion is seen. The visualized portion of the small bowel and colon appear nondistended. There is a small periumbilical hernia containing fat. No free intraperitoneal fluid is seen. No enlarged pelvic or inguinal lymph nodes are seen. IMPRESSION: NO EVIDENCE FOR ACUTE FINDING, IF THE PATIENT'S SYMPTOMS PERSIST RECOMMEND OUTPATIENT MR IMAGING OF THE HIP.
[2017-06-17] MEDS: Benzonatate CAP* 100 MG PO SCH ×2 (16:35→20:48)
[2017-06-17] MEDS: Morphine INJ* 2 MG/ML 1 ML SYRINGE (TWO MG - NEW SYRINGE VERSION) IV PRN ×2 (16:35→20:50)
[2017-06-17] MEDS: Baclofen TAB* 10 MG PO SCH (20:49)
[2017-06-17] MEDS: Oxybutynin TAB* 5 MG PO SCH (20:49)
[2017-06-17] MEDS: Heparin VIAL(*) 5000 UNITS/ML VIAL (FIVE THOUSAND) SUBCUT SCH (20:51)
[2017-06-17] MEDS: PTO:Dimethyl Fumarate(NF) 240 MG CAP PO SCH (22:07)
[2017-06-17] MEDS: Ketorolac INJ* 30 MG/ML 1 ML VIAL IV PUSH PRN (23:18)
--- NOTE | 2017-06-17 23:51 | HP ---
ADMISSION HISTORY AND PHYSICAL: DATE OF ADMISSION: 06/17/17 ADMITTING PHYSICIAN: Lawrence Villeda MD * (DICTATED BY MOR BARRIOS NP) PRIMARY CARE PHYSICIAN: Dr. Barahona. HISTORY OF PRESENT ILLNESS: This is a 47-year-old female patient who has a history significant for MS. She is being treated by Dr. Barahona. She reports she had surgery actually earlier this week approximately 10 days ago, I think for a breast reduction that was date of 05/26/17. She had an uneventful postoperative course; however, she noted some increasing left hip pain, which began this morning when she was trying to get out of her recliner. The patient states she has been trying to sleep in the recliner since having the breast surgery, she was unable to sleep flat secondary to incisional pain and some history of low back pain along with her baseline MS pain, so she had this pain in her left groin and hip and she was unable to bear weight. Normally, she does ambulate with a walker secondary to her MS. However, she states she was unable to bear weight on her left side at all. She states she has not had an MS flare in a long time. She has not been on steroids in over a year. She did have a 3-day inpatient infusion of steroids about a year-and- a-half ago for a smaller flare that she had, but she has not had any issues since. She was medically stabilized and cleared for her surgery earlier this month and has had no issues up to this point. She reports no traumatic injury or falls. No complications with her surgical procedure and otherwise had no issues. She came into the emergency department, had a CAT scan of the pelvis and left hip and also of the lower lumbar, which showed no acute pathology. Bones look like they were in good condition. Also, her laboratories were kind of unremarkable. The patient received some pain medication in the ER, which she stated did help with pain; however, she was still unable to bear weight and ambulate, so it was determined that she should be admitted for observation to see if we can get this kind of unknown pain under control and see if we can get her to ambulate in the morning. PAST MEDICAL HISTORY: Significant for multiple sclerosis. She states she had a recent history of some bronchial pneumonia for which she was treated outpatient with antibiotics, history of GERD, urinary spasms, and overactive bladder secondary to her MS and depression and PTSD. PAST SURGICAL HISTORY: Significant for breast reduction surgery May 2017, had some dental surgery in 2010 and 2011. ALLERGIES: Patient has allergies to BEES, ONIONS, ASPIRIN, PENICILLIN, CITRUS FRUITS, and SULFA. FAMILY HISTORY: Diabetes, unknown which family members. SOCIAL HISTORY: The patient is disabled. Does have some remote history of alcohol abuse, has been sober since 2008. Reports no history of illicit drug use. Some remote history of light tobacco abuse, 1 to 2 cigarettes a week. REVIEW OF SYSTEMS: A 10-point review of systems is negative except as noted in the HPI. PHYSICAL EXAMINATION GENERAL: The patient is awake and alert, in no acute distress. VITAL SIGNS: Currently blood pressure 118/64, heart rate 97, respiratory rate 17, O2 saturation 96% on room air, temperature 98.9. HEENT: The patient is atraumatic and normocephalic. Eyes: She has nonicteric sclerae. Conjunctivae are clear. She has PERRLA. NECK: Supple, nontender. No JVD noted. No thyromegaly appreciated. No carotid bruits auscultated. LUNGS: Lungs are clear bilaterally to auscultation with no wheezing, rhonchi, or rales. She does have a mild cough, unproductive. CARDIOVASCULAR: She has positive S1, S2. Rate and rhythm are regular. No murmurs, gallops, or rubs appreciated. MUSCULOSKELETAL: She has point tenderness in the left groin in the area of the left inguinal ligament. No erythema or edema noted to the area. No ecchymosis , bruising or obvious trauma noted. NEUROLOGIC: Sensory and motor are intact. DTRs are also intact. SKIN: Moderately flushed in the face. PSYCHIATRIC: She is grossly normal. DIAGNOSTIC STUDIES/LAB DATA: No labs were drawn today. CAT scans, CT of the pelvis shows no acute pathology and no abnormal findings, essentially normal imaging of the hip. CT of the lumbar spine showed some mild degenerative spondylosis with no acute evidence of any acquired spinal stenosis. ASSESSMENT: This is a 47-year-old female patient with a history of multiple sclerosis with an inability to ambulate, who has been refractory to pain medication and still unable to bear weight. Etiology is thus unclear. PLAN: The patient will be admitted to observation status. She has been given some IV pain medication and states that it has helped. We will give her morphine as needed; however, we would try an anti-inflammatory to start. I had a lengthy discussion with the patient regarding steroids, I do not wish to start her on steroids now and she also prefers not to, so we will try some IV Toradol, she can have that q. 6 hours for its anti-inflammatory properties. The patient described that she had very long table time from her recent surgery. She has had a sore back and moderately sore hip and joint discomfort since the surgery. I suspect that this is musculoskeletal in nature and probably secondary to some deconditioning secondary to her surgery. She has not been as ambulatory as usual, so we will try her on some anti-inflammatories and a little bit of morphine only if she has extreme pain that is refractory to anti-inflammatories. We will get a physical therapy consult tomorrow and see if we can get her ambulating with her walker and get her back to her usual state. Again, all her imaging is negative at this point, I do not see any bony issues here. She does not appear to be in a flare for MS as this is isolated to just one large joint in the hip and even as the patient has stated she has had MS flares in the past and this does not feel like it. We will monitor her tonight, try to get her pain under control and see what Physical Therapy says in the morning. We will continue her regular home medications for her depression and her oxybutynin for her urinary issues. For the little bit of left over cough she has from being treated from her upper respiratory infection , we will give her Tessalon cap 100 mg 2 times a day as needed. DVT prophylaxis was heparin 5000 unit subcu q. 8 hours as needed, again Ketorolac 30 mg IV q. 6 hours as needed, morphine 2 mg q. 4 for severe breakthrough pain, Prilosec to cover her for GERD and her behavioral meds as needed. The rest of patient's course will be determined by any further diagnostic laboratories and any other input from other providers as warranted during this admission. The patient has been admitted in stable condition to observation to [address] [place] [address]. We will reassess her condition in the morning. If she is able to ambulate, she will be discharged home. MOR BARRIOS, CNP [id number]/[facility] #: [id number] [facility] HOSPITALSerena
[2017-06-18] MEDS: Morphine INJ* 2 MG/ML 1 ML SYRINGE (TWO MG - NEW SYRINGE VERSION) IV PRN ×5 (01:02→21:12)
[2017-06-18] MEDS: Heparin VIAL(*) 5000 UNITS/ML VIAL (FIVE THOUSAND) SUBCUT SCH ×3 (05:24→21:39)
[2017-06-18] MEDS: Omeprazole CAP* 20 MG PO SCH (05:24)
[2017-06-18] MEDS ORDERED: guaiFENesin ER TAB 600 MG PO ONE (06:06)
[2017-06-18] MEDS: Ondansetron INJ* 2 MG/ML VIAL IV PRN (09:13)
[2017-06-18] MEDS: CMCS: Vilazodone (NF) 40 MG TAB PO SCH (09:13)
[2017-06-18] MEDS: Ketorolac INJ* 30 MG/ML 1 ML VIAL IV PUSH PRN ×3 (09:13→23:25)
[2017-06-18] MEDS: PTO:Dimethyl Fumarate(NF) 240 MG CAP PO SCH ×2 (09:14→22:47)
[2017-06-18] MEDS: Benzonatate CAP* 100 MG PO SCH ×2 (09:14→21:11)
[2017-06-18] MEDS: Baclofen TAB* 10 MG PO SCH ×2 (09:14→21:12)
[2017-06-18] MEDS: Amantadine CAP* 100 MG PO SCH (09:14)
[2017-06-18] MEDS: CMCS: Brexpiprazole (NF) 0.5 MG TAB PO SCH (09:14)
[2017-06-18] MEDS: Oxybutynin TAB* 5 MG PO SCH ×2 (09:14→21:11)
[2017-06-18 09:33] LABS: ABS Basophils 0 10^3/ul (0-0.2); ABS Eosinophils 0.1 10^3/ul (0-0.6); ABS Lymphocytes 0.6 10^3/ul (1.0-4.8); ABS Neutrophils 5.8 10^3/ul (1.5-7.7); ABS Nucleated RBC 0 10^3/ul; Hematocrit 33 % (35-47); Hemoglobin 11.4 g/dl (12.0-16.0); Lymphocyte % 8.3 % (25-47); Mean Corpuscular HGB Conc 35 g/dl (31-36); Mean Corpuscular Hemoglobin 30 pg (27-31); Mean Corpuscular Volume 87 fL (80-97); Mean Platelet Volume 8 um3 (7.4-10.4); Nucleated Red Blood Cells % 0.1; Platelet Count 286 10^3/ul (150-450); Red Blood Count 3.79 10^6/ul (4.0-5.4); Red Cell Distribution Width 16 % (10.5-15); White Blood Count 7.5 10^3/ul (3.5-10.8)
[2017-06-18] MEDS ORDERED: ceFAZolin 1 GM VIAL(*) 1 GM in NS 0.9% 50 ML* 50 ML IVPB ONE (10:35)
[2017-06-18] MEDS ORDERED: ceFAZolin 1 GM in Dextrose (*) 1 GM/50 ML BAG IVPB ONE (10:48)
--- NOTE | 2017-06-18 11:26 | PN ---
Subjective Date of Service: 06/18/17 Interval History: Patient seen and examined. Per RN, patient having nausea, low grade fever and significant drainage from incision under left breast. Left hip pain with no change - still no pain at rest but significant pain with attempted ambulation. Not seen by PT yet. Also still complaining of non-productive cough and overall malaise. Denies chest pain but does have heaviness with inspiration. Objective Active Medications: Amantadine HCl (Symmetrel Cap*) 100 mg PO DAILY [facility] Last Admin: 06/18/17 09:14 Dose: 100 mg Baclofen (Lioresal Tab*) 10 mg PO BID [facility] Last Admin: 06/18/17 09:14 Dose: 10 mg Benzonatate (Tessalon Cap*) 100 mg PO BID [facility] Last Admin: 06/18/17 09:14 Dose: 100 mg Brexpiprazole (Rexulti 0.5 Mg Tab (Nf)) 2 mg PO DAILY [facility] Last Admin: 06/18/17 09:14 Dose: 2 mg Dimethyl Fumarate (Tecfidera(Nf)) 240 mg PO BID [facility] Last Admin: 06/18/17 09:14 Dose: 240 mg Heparin Sodium (Porcine) (Heparin Vial(*)) 5,000 units SUBCUT Q8HR [facility] Last Admin: 06/18/17 05:24 Dose: 5,000 units Ketorolac Tromethamine (Toradol Inj*) 30 mg IV PUSH Q6H PRN PRN Reason: PAIN Last Admin: 06/18/17 09:13 Dose: 30 mg Morphine Sulfate (Morphine Inj (Syringe)*) 2 mg IV Q4H PRN PRN Reason: PAIN - SEVERE Last Admin: 06/18/17 05:24 Dose: 2 mg Omeprazole (Prilosec Cap*) 20 mg PO DAILY@0600 [facility] Last Admin: 06/18/17 05:24 Dose: 20 mg Ondansetron HCl (Zofran Inj*) 4 mg IV Q6H PRN PRN Reason: NAUSEA Last Admin: 06/18/17 09:13 Dose: 4 mg Oxybutynin Chloride (Ditropan Tab*) 5 mg PO DAILY [facility] Last Admin: 06/18/17 09:14 Dose: 5 mg Oxybutynin Chloride (Ditropan Tab*) 7.5 mg PO BEDTIME [facility] Last Admin: 06/17/17 20:49 Dose: 7.5 mg Vilazodone HCl (Viibryd (Nf)) 40 mg PO DAILY [facility] Last Admin: 06/18/17 09:13 Dose: 40 mg Vital Signs - 8 hr 06/18/17 06/18/17 06/18/17 05:24 06:33 07:27 Temperature 98.8 F Pulse Rate 92 Respiratory 18 18 18 Rate Blood Pressure 112/65 (mmHg) O2 Sat by Pulse 93 Oximetry 06/18/17 06/18/17 08:00 10:17 Temperature 100.1 F Pulse Rate Respiratory 18 Rate Blood Pressure (mmHg) O2 Sat by Pulse Oximetry Oxygen Devices in Use Now: None Appearance: flushed, NAD, tired Eyes: No Scleral Icterus, PERRLA Ears/Nose/Mouth/Throat: NL Teeth, Lips, Gums, Clear Oropharnyx, Mucous Membranes Moist Neck: NL Appearance and Movements; NL JVP, Trachea Midline Respiratory: Symmetrical Chest Expansion and Respiratory Effort, Clear to Auscultation Cardiovascular: NL Sounds; No Murmurs; No JVD, RRR, No Edema Abdominal: NL Sounds; No Tenderness; No Distention Lymphatic: No Cervical Adenopathy Extremities: No Edema, No Clubbing, Cyanosis Skin: - - left breast incision with purulent, serosanguinous drainage Neurological: Alert and Oriented x 3 Nutrition: Taking PO's Result Diagrams: 06/18/17 09:15 Assess/Plan/Problems-Billing Assessment: - Patient Problems (1) Left hip pain Code(s): M25.552 - PAIN IN LEFT HIP SNOMED Code(s): 80407792 Comment: - CT hip, pelvis and lumbar region negative for acute pathology - Does not appear to be MS flare - Likely MS in nature 2/2 prolonged table time from recent surgery and general deconditioning - Continue toradol, morphine PRN - Pending PT eval (2) History of recurrent pneumonia Status: Acute Code(s): Z87.01 - PERSONAL HISTORY OF PNEUMONIA (RECURRENT) SNOMED Code(s): 975741595 Comment: - Completed PO zithromax last week - Recurrent cough currently, now with low grade temp - No white count - Will order CXR to check for infiltrate vs atelectasis - Tylenol PRN (3) Status post breast reduction Code(s): Z98.890 - OTHER SPECIFIED POSTPROCEDURAL STATES SNOMED Code(s): 005152463 Comment: - Followed by Dr. Echevarria - Consulted today (4) Surgical wound infection Code(s): T81.4XXA - INFECTION FOLLOWING A PROCEDURE, INITIAL ENCOUNTER SNOMED Code(s): 74766884 Comment: - Wound swabbed for culture and irrigated with NS, redressed - Consulted Dr. Echevarria - 1 gm ancef now, will defer to plastics for additional management after wounds assessed - unclear if low grade temp 2/2 wound vs. pulmonary source (5) H/O multiple sclerosis Code(s): Z86.69 - PERSONAL HISTORY OF DIS OF THE NERVOUS SYS AND SENSE ORGANS SNOMED Code(s): 005580978 Comment: - At baseline, stable (6) Depression Code(s): F32.9 - MAJOR DEPRESSIVE DISORDER, SINGLE EPISODE, UNSPECIFIED SNOMED Code(s): 66414996 Comment: - Mood stable, continue home meds Status and Disposition: Continue inpatient for now and follow wound culture. appreciate recs from plastics and PT. Counseling and/or Coordination of Care Minutes: Coordinated with patient and staff.
--- NOTE | 2017-06-18 18:28 | CONS ---
CONSULTATION REPORT: DATE OF CONSULT: 06/18/17 REASON FOR CONSULTATION: Open wound left breast. HISTORY OF PRESENT ILLNESS: The patient is a 47-year-old female with a history of multiple sclerosis and bilateral symptomatic breast hypertrophy who underwent a bilateral reduction mammoplasty with il on 05/26/17 with application of a VAC Prevena wound dressing. She was noncompliant with the VAC postoperatively. She developed some minor delayed wound healing in the inframammary area of the left breast postoperatively. This was being treated with local wound care with cleansing and Vaseline jelly as an outpatient. She was scheduled for followup in my office yesterday, but presented to the emergency room with new onset hip and back pain. She was admitted to the hospitalist service. She was subsequently noted to have some bloody and purulent appearing drainage from the inferior aspect of the left breast. I was consulted to evaluate this. The patient denies any unusual or increased pain in the breast. She states that she had noted some bloody drainage on her bra, which had soaked through her dressing. She stated that the bra had been in place for a couple of days. She states that she thinks she was having some low grade fever at home. PHYSICAL EXAM: On examination, the patient noted to be alert and cooperative and in no acute distress. T-max for past 24 hours is 100.2 degrees Fahrenheit. Blood pressure is 112/65, heart rate 92, respirations 18, oxygen saturation is 93% on room air. Examination of the left breast demonstrates a possibly 1 sq cm superficial open area at the inferior trifurcation point where the vertical meets the horizontal scar. Several centimeters lateral to this in the inframammary scar is another approximately 1 sq cm superficial open area with some surrounding superficial blistering of the skin and excoriation as well as mild erythema. There is some cloudy looking, slightly bloody drainage noted from this area, which was previously cultured in the hospital. The breast appears otherwise soft and the remaining incisions all appear to be healing well. IMPRESSION: My impression is that the patient has two areas of superficial delayed healing in the inframammary area of the left breast, probably has a mild wound infection or cellulitis. I recommend that the breast and wounds be cleansed with soap and water twice daily, showering would be okay. Following the cleansing, the wound should be dressed with mupirocin ointment and then ABD pads in either a bra or Fred wrap to hold the dressing in place. Please avoid any tape on the breast skin or inframammary area. She has been placed on intravenous Ancef, which I agree with for now pending the culture results. If she is discharged home, I would recommend appropriate oral antibiotics and the same wound care. Having a visiting nurse to assist her with the wound care would be helpful. If she is discharged, I would like to see her in my office in 6 days. If she is still in the hospital on 06/23/17, I will see her at that time in the hospital. Thank you for this consultation. [id number]/[facility] #: [id number] SHIRA
[2017-06-18] MEDS: Mupirocin 2% OINT* TUBE TOPICAL SCH (21:12)
[2017-06-19] MEDS: Omeprazole CAP* 20 MG PO SCH (05:40)
[2017-06-19] MEDS: Morphine INJ* 2 MG/ML 1 ML SYRINGE (TWO MG - NEW SYRINGE VERSION) IV PRN ×3 (05:40→16:41)
[2017-06-19] MEDS: Heparin VIAL(*) 5000 UNITS/ML VIAL (FIVE THOUSAND) SUBCUT SCH ×2 (05:40→12:52)
[2017-06-19] MEDS: Amantadine CAP* 100 MG PO SCH (09:13)
[2017-06-19] MEDS: CMCS: Vilazodone (NF) 40 MG TAB PO SCH (09:13)
[2017-06-19] MEDS: Oxybutynin TAB* 5 MG PO SCH ×2 (09:13→21:52)
[2017-06-19] MEDS: Baclofen TAB* 10 MG PO SCH ×2 (09:13→21:55)
[2017-06-19] MEDS: Mupirocin 2% OINT* TUBE TOPICAL SCH ×2 (09:13→23:20)
[2017-06-19] MEDS: Benzonatate CAP* 100 MG PO SCH ×2 (09:13→21:53)
[2017-06-19] MEDS: CMCS: Brexpiprazole (NF) 0.5 MG TAB PO SCH (09:14)
[2017-06-19] MEDS: Ketorolac INJ* 30 MG/ML 1 ML VIAL IV PUSH PRN ×2 (09:14→16:42)
[2017-06-19] MEDS: PTO:Dimethyl Fumarate(NF) 240 MG CAP PO SCH ×2 (09:14→21:56)
[2017-06-19] MEDS ORDERED: NS 0.9% 500 ML* 500 ML IV ONE (09:57)
[2017-06-19] MEDS: Polyethylene Glycol 3350* 17 GM PACKET PO SCH (12:00)
--- NOTE | 2017-06-19 12:34 | RAD ---
INDICATION: Cough COMPARISON: March 29, 2017 TECHNIQUE: PA and lateral dual-energy views were obtained. FINDINGS: Bones/Soft Tissues: There are no acute bony findings. Cardiomediastinal: The cardiomediastinal silhouette is normal. Lungs: There are no infiltrates. Pleura: There are no pleural effusions. Other: None IMPRESSION: NO ACTIVE DISEASE.
--- NOTE | 2017-06-19 12:42 | PN ---
Subjective Date of Service: 06/19/17 Interval History: Patient seen and examined. Still with pain in hip and left leg, breast pain/ drainage improving, fevers improved. C/O being tired and general malaise with back, hip and leg pain increasing but per staff, not willing to ambulate 2/2 pain and deconditioning. Denies SOB, no chest pain, mild unproductive cough. Objective Active Medications: Amantadine HCl (Symmetrel Cap*) 100 mg PO DAILY [facility] Last Admin: 06/19/17 09:13 Dose: 100 mg Baclofen (Lioresal Tab*) 10 mg PO BID [facility] [place] Last Admin: 06/19/17 09:13 Dose: 10 mg Benzonatate (Tessalon Cap*) 100 mg PO BID [facility] [place] Last Admin: 06/19/17 09:13 Dose: 100 mg Brexpiprazole (Rexulti 0.5 Mg Tab (Nf)) 2 mg PO DAILY [facility] [place] Last Admin: 06/19/17 09:14 Dose: 2 mg Dimethyl Fumarate (Tecfidera(Nf)) 240 mg PO BID [facility] [place] Last Admin: 06/19/17 09:14 Dose: 240 mg Heparin Sodium (Porcine) (Heparin Vial(*)) 5,000 units SUBCUT Q8HR [facility] [place] Last Admin: 06/19/17 05:40 Dose: 5,000 units Ketorolac Tromethamine (Toradol Inj*) 30 mg IV PUSH Q6H PRN PRN Reason: PAIN Last Admin: 06/19/17 09:14 Dose: 30 mg Morphine Sulfate (Morphine Inj (Syringe)*) 2 mg IV Q4H PRN PRN Reason: PAIN - SEVERE Last Admin: 06/19/17 12:00 Dose: 2 mg Mupirocin (Bactroban 2 % Oint*) 1 applic TOPICAL BID [facility] [place] Last Admin: 06/19/17 09:13 Dose: 1 dose Omeprazole (Prilosec Cap*) 20 mg PO DAILY@0600 [facility] [place] Last Admin: 06/19/17 05:40 Dose: 20 mg Ondansetron HCl (Zofran Inj*) 4 mg IV Q6H PRN PRN Reason: NAUSEA Last Admin: 06/18/17 09:13 Dose: 4 mg Oxybutynin Chloride (Ditropan Tab*) 5 mg PO DAILY [facility] [place] Last Admin: 06/19/17 09:13 Dose: 5 mg Oxybutynin Chloride (Ditropan Tab*) 7.5 mg PO BEDTIME [facility] [place] Last Admin: 06/18/17 21:11 Dose: 7.5 mg Polyethylene Glycol/Electrolytes (Miralax*) 17 gm PO DAILY [facility] [place] Last Admin: 06/19/17 12:00 Dose: 17 gm Vilazodone HCl (Viibryd (Nf)) 40 mg PO DAILY [facility] [place] Last Admin: 06/19/17 09:13 Dose: 40 mg Vital Signs - 8 hr 06/19/17 06/19/17 06/19/17 05:40 09:14 12:00 Respiratory 18 16 16 Rate Oxygen Devices in Use Now: None Appearance: tired, alert, NAD Eyes: No Scleral Icterus, PERRLA Ears/Nose/Mouth/Throat: NL Teeth, Lips, Gums, - - dry oral mucosa Neck: NL Appearance and Movements; NL JVP, Trachea Midline Respiratory: Symmetrical Chest Expansion and Respiratory Effort, Clear to Auscultation Cardiovascular: NL Sounds; No Murmurs; No JVD, RRR Abdominal: NL Sounds; No Tenderness; No Distention, No Hepatosplenomegaly Extremities: No Edema, No Clubbing, Cyanosis Skin: - - left breast incision site improved, less drainage, dressing CDI Neurological: Alert and Oriented x 3, NL Sensation, - - general weakness, body aches and pains Nutrition: Taking PO's Result Diagrams: 06/18/17 09:15 Microbiology and Other Data: Microbiology 06/18/17 10:42 Skin and Soft Tissue MRSA/MSSA (PCR - Final Breast Left Mrsa Negative S.aureus Negative Gram Stain - Final 06/18/17 10:42 Gram Stain - Final Breast Left Assess/Plan/Problems-Billing Assessment: This is a 47 year old female with hx significant for MS and recent breast reduction surgery that has inability to ambulate and left hip and groin pain. - Patient Problems (1) Left hip pain Code(s): M25.552 - PAIN IN LEFT HIP SNOMED Code(s): 87223719 Comment: - CT hip, pelvis and lumbar region negative for acute pathology - Does not appear to be MS flare - Ortho consult appreciated, appears to be musculosekeltal in nature, will US LLE to ensure no DVT although she has been on heparin since admission, she was likely sedentary at home after surgery - Continue toradol, morphine PRN - Continue PT as rebeka, reinforce trying to ambulate (2) History of recurrent pneumonia Status: Acute Code(s): Z87.01 - PERSONAL HISTORY OF PNEUMONIA (RECURRENT) SNOMED Code(s): 114638613 Comment: - Completed PO zithromax last week - Temp resolved - No white count - CXR with no infiltrate - Tessalon for cough - Encourage IS and AMBULATE (3) Status post breast reduction Code(s): Z98.890 - OTHER SPECIFIED POSTPROCEDURAL STATES SNOMED Code(s): 398384677 Comment: - Followed by Dr. Echevarria consult appreciated - local wound care (4) Surgical wound infection Code(s): T81.4XXA - INFECTION FOLLOWING A PROCEDURE, INITIAL ENCOUNTER SNOMED Code(s): 91034779 Comment: - Improvement in surgical wound infection today - Dr. Echevarria consulted yesterday, please see note - Continue local wound care per plastics with soap and water cleanse, bactroban , ABD and CLAUDINE 2x daily - no temp today, will hold hold on further IV atbx today (5) H/O multiple sclerosis Code(s): Z86.69 - PERSONAL HISTORY OF DIS OF THE NERVOUS SYS AND SENSE ORGANS SNOMED Code(s): 131598349 Comment: - At baseline, stable (6) Depression Code(s): F32.9 - MAJOR DEPRESSIVE DISORDER, SINGLE EPISODE, UNSPECIFIED SNOMED Code(s): 90125843 Comment: - Mood stable, continue home meds (7) Low urine output Code(s): R34 - ANURIA AND OLIGURIA SNOMED Code(s): 86407141 Comment: - Likely 2/2 low PO water intake and inactivity, does appear clinically very dry - Will bolus with 500ml NS and restart IVF at maintenance Status and Disposition: Continue inpatient care. Would recommend physical rehab, as patient is very deconditioned from recent surgery and will likely begin to have additional complications if she is unable to ambulate. D/W SW. Counseling and/or Coordination of Care Minutes: Coordinated with staff, ortho and patient.
[2017-06-19] MEDS: Ondansetron INJ* 2 MG/ML VIAL IV PRN ×2 (12:52→19:23)
--- NOTE | 2017-06-19 15:14 | RAD ---
INDICATION: LEFT calf tenderness. COMPARISON: No relevant prior exams available on the [facility] for comparison. TECHNIQUE: Spann scale, color Doppler, and spectral analysis of the deep veins of the LEFT lower extremity. Vessel compression, phasicity, and augmentation assessed. REPORT: There is occlusive thrombosis of the LEFT profunda femoral vein . There is minimal extension of the thrombus to the distal LEFT common femoral vein without complete occlusion of the common femoral vein. Patent superficial femoral, popliteal, and popliteal veins documented. The peroneal veins could not be visualized limiting assessment. Patency of the RIGHT common femoral vein documented. IMPRESSION: Occlusive thrombosis of the LEFT profunda femoral vein with minimal extension into the distal common femoral vein without complete thrombosis of the common femoral vein.
[2017-06-19] MEDS ORDERED: Morphine INJ* 4 MG/ML 1 ML CARPUJECT IV ONE (16:30)
[2017-06-19 18:08] LABS: EGFR Non-African American 83.8 (>60)
--- NOTE | 2017-06-19 20:50 | RAD ---
INDICATION: History of low back pain, left hip pain. COMPARISON: Comparison is made with a prior CT of the lumbar spine from June 17, 2017. TECHNIQUE: Axial and sagittal T1 and T2 and coronal T2-weighted images of the lumbar spine were obtained. FINDINGS: There is a mild lumbar scoliosis convex toward the right side. The vertebra are otherwise in normal alignment. No significant focal osseous abnormality or fracture is seen. At the L3-L4 level there is a mild broad-based disc bulge and mild hypertrophic changes within the facet joints. No significant spinal canal or neural foraminal narrowing is seen.] The L4-L5 level there is a mild broad-based disc bulge and mild hypertrophic changes within the facet joints. There is mild spinal canal narrowing. Neural foramen appear patent on both sides. At the L5-S1 level there is a mild broad-based disc bulge and mild hypertrophic changes within the facet joints. No spinal canal or neural foraminal narrowing is seen. IMPRESSION: MILD DEGENERATIVE DISC DISEASE AND FACET OSTEOARTHRITIS.
--- NOTE | 2017-06-19 21:19 | RAD ---
INDICATION: Left hip pain. COMPARISON: Comparison is made with a prior x-ray study of the left hip from June 17, 2017. Correlation is also made with a CT of the pelvis from June 17, 2017. TECHNIQUE: Axial and coronal T1 and T2-weighted images of the pelvis were obtained. FINDINGS: There is fluid tracking in the deep soft tissues and prominent muscle edema involving the left adductor muscles extending into the hamstring muscles. This is only partially visualized on this study and extends more inferior into the thigh. There are also smaller areas of edema in the right gluteus medius muscle and left gluteus medius and behzad muscles. No focal fluid collection or abscess is seen. The bones are normal in signal intensity. No joint effusion is seen. No significant arthritic change is noted. The visualized portion of the small bowel and colon appear nondistended. No free intraperitoneal fluid is present. The results of this examination were discussed with Dr. Atkins. IMPRESSION: THERE IS FLUID TRACKING IN THE DEEP SOFT TISSUES OF THE LEFT THIGH AND PROMINENT MUSCLE EDEMA IN THE LEFT THIGH. THERE IS ALSO MUSCLE EDEMA BILATERALLY WITHIN THE GLUTEAL MUSCLES. THIS IS A NONSPECIFIC FINDING ALTHOUGH MOST LIKELY SECONDARY TO AN INFECTIOUS OR INFLAMMATORY MYOSITIS.
--- NOTE | 2017-06-19 21:30 | CONS ---
CONSULTATION REPORT: DATE OF CONSULT: 06/19/17 PROVIDER: Dr. Pack. REASON FOR CONSULTATION: Left hip pain. HISTORY OF PRESENT ILLNESS: The patient is a pleasant 47-year-old female who presented to the emergency room on 06/17/17 with a chief complaint of left hip pain. This occurred in the morning. She denied any recent changes to activities or new exercises. She does have a history of MS, but has been treated by Dr. Barahona without any flares for several years. The patient was sleeping in a recliner as she recently underwent breast reduction surgery and was unable to lie flat comfortably. The patient states that she was unable to bear weight on her left side due to the increased pain and she does normally ambulate with a walker at baseline. She was seen in the ER and underwent a hip and pelvis x-ray that showed no definitive fracture as well as a lumbar spine CT , which showed mild degenerative spondylosis as well as a pelvic CT, which showed no evidence of acute findings and no evidence of significant osteoarthritis. The patient was admitted and had a consultation with Dr. Echevarria for superficial delayed healing of the left breast with possible cellulitis. She has been treated with antibiotics; however, has not had any improvement of her left hip despite physical therapy. We were consulted with regards to possible cause of this increased pain. PAST MEDICAL HISTORY: 1. MS. 2. History of bronchial pneumonia. 3. GERD. 4. Urinary spasms with overreactive bladder secondary to MS. 5. Depression. 6. PTSD. PAST SURGICAL HISTORY: 1. Breast reduction surgery in May 2017. 2. Dental surgery. ALLERGIES: The patient has allergies to BEES, ONIONS, ASPIRIN, PENICILLIN, CITRUS FRUITS, and SULFA. FAMILY MEDICAL HISTORY: Diabetes. SOCIAL HISTORY: The patient is currently disabled, uses a walker for walking. Remote history of alcohol use, sober since 2008. No drug use. Light tobacco use approximately 1 to 2 cigarettes a week. PHYSICAL EXAM: General: Well appearing, no acute distress. Alert and oriented. Resting in bed comfortably. Vital Signs: Temperature 99.3, pulse rate 103, respirations 18, oxygen saturation 90% on room air, blood pressure 116 /61. Musculoskeletal: Back: Tenderness throughout the musculature of the lumbar and thoracic spine, worse over the SI joint bilaterally as well as soft tissues extending from the paraspinal muscles to the lateral aspects. Again worse in the lower portion of the back and improving; however, still present throughout the upper back. No tenderness over the spine itself. Positive SI joint tenderness bilaterally, equal. Positive straight leg test on left side. Difficulty for the patient to go to a full sitting position from a lying down position without significant lower back pain radiating into the left hip. Left lower extremity: Posterior tibial pulses nonpalpable bilaterally. However, dorsalis pedis 2+ bilaterally, positive dorsiflexion and plantar flexion bilaterally with minimal tenderness with dorsiflexion to the left hip. Positive tenderness with palpation of the left calf. Mild edema noted in the bilateral lower extremities. No tenderness to palpation to patellar region; however, tenderness over the lateral collateral ligaments as well as the medial collateral ligaments and positive tenderness over the pes anserine region and positive tenderness over the iliotibial band from insertion to origin with increased tenderness over the greater trochanteric area. Negative log roll with inversion or eversion. Flexion to hip to approximately 60 degrees without tenderness in the hip joints with the knee flexed; however, only to approximately 20 degrees due to lower back pain with the knee fully extended. Positive minimal tenderness with deep palpation over the groin region. Positive tenderness with external rotation and abduction of the hip over the gracilis muscle causing the patient exquisite tenderness with palpation of this region. Sensation intact to light touch bilateral lower extremities. Abdomen: Soft, nontender, nondistended. No masses palpable. LABORATORY DATA: On 06/18/17, WBC of 7.5, H and H of 11.4 and 33, lymphocytes of 8.3, monocytes of 13.2. ASSESSMENT: Consultation for left hip pain. PLAN: The patient was discussed with Dr. Pack due to her potentially positive Homans sign. A venous Doppler study was ordered, which showed occlusive thrombus in the left femoral vein with minimal extension into the distal common femoral vein without complete thrombosis of the common femoral vein. An MRI of the lumbar spine as well as the hip without contrast was ordered as well. The patient will be seen by Dr. Pack later this evening for full consultation. LALI ERAZO [id number]/[facility] #: [id number] SHIRA
[2017-06-19] MEDS ORDERED: Vancomycin per Pharmacy* NOTE FOLLOW UP PRN (21:54)
[2017-06-19] MEDS: Rivaroxaban TAB(*) 15 MG PO SCH (21:54)
[2017-06-19] MEDS ORDERED: Vancomycin(*) 1,500 MG in NS 0.9% 250 ML* 250 ML IVPB ONE (22:00)
--- NOTE | 2017-06-19 23:18 | CONS ---
CONSULTATION REPORT: DATE OF CONSULT: 06/19/17 CHIEF COMPLAINT: Lumbar spine, pelvis, and left hip pain. HISTORY OF PRESENT ILLNESS: Karla is 47. She had breast reconstruction surgery by Dr. Echevarria a couple of weeks ago. She developed a bit of infection in the inframammary area. Dr. Echevarria seen her and recommended the antibiotics plus local wound care. She had done reasonably well postoperati vely and then just a few days prior to admission, she began to have severe left hip and pelvis pain. It is very painful whenever she moves. She has felt febrile. She came to the emergency room when t he pain continued to increase. She has had x-rays and CT scan done, which were all negative. Her wh ite count was 7.5. She is in severe pain. She has been again started on cefazolin for the surgical site infection. Her T-max has been 100.2 while she has been here in the hospital. She said that she has felt quite febrile. She was seen by the orthopedic PA earlier today who recommended a DVT scan of the legs, which came back as positive and she was started on Xarelto. PAST MEDICAL HISTORY: She has a history of MS. She has the diagnosis for quite some time that has b een stable. Otherwise, she has a recent history of bronchial pneumonia, treated as an outpatient wit h antibiotics; GERD; urinary spasms and overactive bladder secondary to MS; depression; PTSD. PAST SURGICAL HISTORY: Breast reduction surgery on 05/26/[address] Echevarria. She has had dental rivera rgery. MEDICATIONS: She is currently on cefazolin and was recently started on Xarelto b.i.d. ALLERGIES: BEES, ONIONS, ASPIRIN, PENICILLIN, CITRUS FRUITS, and SULFA. FAMILY HISTORY: Diabetes. SOCIAL HISTORY: She is disabled. She does not actively smoke. She denies illicit drug use or IV dr ug use. REVIEW OF SYSTEMS: Significant for fevers, chills, and significant pain as mentioned above. Full re view of systems was otherwise conducted. PHYSICAL EXAM: Vitals: T-max has been 100.2. Currently, her most recent vitals at 7 o'clock this m orning show a pulse of 103, respiratory rate of 18, O2 sats of 90%, blood pressure 116/61. General: Awake, in mild distress. She is diaphoretic and warm to the touch. Skin: Again, she is diaphoreti c and the skin is quite warm. I did not examine her inframammary surgical site infection. Dressings are in place. There is no erythema about the hip or visualized anterior pelvis. She was in too muc h pain on to her side to look at the back of the pelvis. Musculoskeletal: I am actually able to move all the joints including log roll in the left hip and gently flexing and extending the hip with mini mal discomfort. There is no tenderness about the anterior hip and groin. There is no tenderness to t he greater trochanter. The knee, ankle, and other joint exams are unremarkable. She is exquisitely t debra over the lumbar spine. She is very tender over the pelvis, any compression of the pelvis cause s significant amount of discomfort. DIAGNOSTIC STUDIES: Imaging: I reviewed her x-rays and CT scans of the leg and hip. I do not see a ny acute abnormality. Left lower extremity venous Doppler study is positive for left profunda femoral vein DVT. IMPRESSION: A 47-year-old female who is diaphoretic and feels febrile tonight, but who had a white c ount of 7.5 on admission. Her T-max has been 100.2 here in the hospital. She does have DVT in the l eft lower extremity. Her pelvis and lumbar spine exam is concerning for pathology. PLAN: I think we should get an MRI of the pelvis and lumbar spine; these have been ordered by myself . I doubt there is any left hip pathology as the left hip exam is relatively benign with passive ran ge of motion. The left hip is nontender, what really painful and tender is the pelvis and lumbar spi ne, so I definitely think we should image that area. We will follow up the MRI scan. I would also re commend blood cultures. [id number]/[facility] #: [id number]
[2017-06-19] MEDS: NS 0.9% 1000 ML* 1,000 ML IV SCH (23:43)
[2017-06-20] MEDS: Ketorolac INJ* 30 MG/ML 1 ML VIAL IV PUSH PRN ×3 (05:54→20:00)
[2017-06-20] MEDS: Morphine INJ* 2 MG/ML 1 ML SYRINGE (TWO MG - NEW SYRINGE VERSION) IV PRN ×3 (05:54→17:30)
[2017-06-20] MEDS: Omeprazole CAP* 20 MG PO SCH (05:55)
[2017-06-20] MEDS ORDERED: Iohexol 350* (CONTRAST) 500 ML MDV IV ONE (08:28)
[2017-06-20] MEDS: Mupirocin 2% OINT* TUBE TOPICAL SCH ×2 (09:24→22:27)
[2017-06-20] MEDS: Vancomycin(*) 1,250 MG in NS 0.9% 250 ML* 250 ML IVPB SCH ×2 (09:24→16:16)
[2017-06-20] MEDS: Baclofen TAB* 10 MG PO SCH ×2 (09:25→20:00)
[2017-06-20] MEDS: Benzonatate CAP* 100 MG PO SCH ×2 (09:25→20:00)
[2017-06-20] MEDS: Amantadine CAP* 100 MG PO SCH (09:25)
[2017-06-20] MEDS: Oxybutynin TAB* 5 MG PO SCH ×2 (09:25→20:01)
[2017-06-20] MEDS: CMCS: Brexpiprazole (NF) 0.5 MG TAB PO SCH (09:26)
[2017-06-20] MEDS: Rivaroxaban TAB(*) 15 MG PO SCH ×2 (09:26→20:00)
[2017-06-20] MEDS: CMCS: Vilazodone (NF) 40 MG TAB PO SCH (09:26)
[2017-06-20] MEDS: PTO:Dimethyl Fumarate(NF) 240 MG CAP PO SCH (09:26)
[2017-06-20] MEDS: Polyethylene Glycol 3350* 17 GM PACKET PO SCH (09:26)
--- NOTE | 2017-06-20 09:57 | RAD ---
INDICATION: Left groin pain and a positive d-dimer. Surgical history includes breast reduction. COMPARISON: Similar examination dated December 15, 2014 TECHNIQUE: Axial source images were acquired following the administration of 85 mL Omnipaque [address] angiographic technique. Coronal and sagittal reconstructed images were constructed and reviewed. FINDINGS: There are nonocclusive filling defects filling the right upper pulmonary artery, the interlobar artery and scattered in the segmental branches of the right middle and lower lobes. The thrombus extends to the distal most portion of the right main pulmonary artery. On the left there are scattered segmental arterial filling defects as well as a small filling defect at the distal most portion of the left pulmonary artery. There are small bilateral pleural effusions. There is consolidated density in the dependent portion of the bilateral lungs. Elsewhere the lungs appear adequately aerated. The heart is normal in size. There is no evidence of pericardial effusion. There is no evidence of aortic aneurysm or dissection. There is no mediastinal, hilar, or axillary lymphadenopathy. Bilaterally there are subcutaneous soft tissue densities involving the left greater than right breast. The largest is at the left breast measuring 2.3 x 5.0 cm in the axial plane. This is likely related to the patient's reported breast reduction surgery. Limited views of the upper abdomen show no abnormalities. IMPRESSION: 1. Positive for pulmonary embolism at the right greater than left mainstem pulmonary arteries as well as scattered lobar and segmental branches. 2. Subcutaneous densities overlying the left greater than right breast presumably related to the patient's breast reduction surgery. Findings were reported to Dr. Rutledge over the telephone at 0950 hours on June 20, 2017.
--- NOTE | 2017-06-20 11:39 | PN ---
Progress Note - Progress Note Date of Service: 06/20/17 Note: I saw Ms. Cisneros again this morning. She continues to have pretty significant lumbar spine pain and left hip pain when she bears any weight on the leg. She has felt warm and somewhat short of breath. She is now on broad spectrum antibiotics. CTA positive for PE. ? collection in area of left breast. MRI L-spine and pelvis show myositis about the left hip area. Blood cultures ordered and should be pending. Vitals are stable. Exam shows a minimal pain with logroll of the L hip and I'm able to flex the hip to 45 degrees and then internally and externally rotate the hip with minimal discomfort. The pelvis and lumbar spine remain severely tender. A/P: MRI findings concerning for a myositis about the left hip but no large effusion seen on MRI and exam findings suggest something other than an intra- articular pathology. If the left hip remains painful the only thing left to do would be to have IR do an aspiration of the left hip to definitively rule out an intra-articular infection. Otherwise, I think we treat the myositis and PE and see how she does over the next few days. I agree with antibiotics and anticoagulants.
[2017-06-20] MEDS ORDERED: Glycerin ADULT SUPP PR ONE (14:27)
[2017-06-20 14:52] LABS: ABS Basophils 0 10^3/ul (0-0.2); ABS Eosinophils 0.1 10^3/ul (0-0.6); ABS Lymphocytes 0.7 10^3/ul (1.0-4.8); ABS Monocytes 1.1 10^3/ul (0-0.8); ABS Neutrophils 5.3 10^3/ul (1.5-7.7); ABS Nucleated RBC 0.01 10^3/ul; Eosinophil % 1.3 % (0-6); Hematocrit 33 % (35-47); Hemoglobin 11.1 g/dl (12.0-16.0); Lymphocyte % 9.3 % (25-47); Mean Corpuscular HGB Conc 33 g/dl (31-36); Mean Corpuscular Hemoglobin 29 pg (27-31); Mean Corpuscular Volume 88 fL (80-97); Mean Platelet Volume 8 um3 (7.4-10.4); Nucleated Red Blood Cells % 0.1; Platelet Count 315 10^3/ul (150-450); Red Blood Count 3.76 10^6/ul (4.0-5.4); Red Cell Distribution Width 16 % (10.5-15); White Blood Count 7.2 10^3/ul (3.5-10.8)
[2017-06-20 15:11] LABS: EGFR Non-African American 72.4 (>60)
--- NOTE | 2017-06-20 15:32 | PN ---
Subjective Date of Service: 06/20/17 Interval History: Patient seen and examined. Events overnight noted, reports and consults reviewed. Patient had episode of SOB with tachycardia this am. New DVT noted yesterday, sent for CTA chest which shows bilateral PE's. Patient states still clinically SOB at times with pain in left hip with any movement. No fever or chills, no chest pain. HR and BP improved. No BM, denies n/v. No further complaints. Objective Active Medications: Amantadine HCl (Symmetrel Cap*) 100 mg PO DAILY [facility] Last Admin: 06/20/17 09:25 Dose: 100 mg Baclofen (Lioresal Tab*) 10 mg PO BID [facility] Last Admin: 06/20/17 09:25 Dose: 10 mg Benzonatate (Tessalon Cap*) 100 mg PO BID [facility] Last Admin: 06/20/17 09:25 Dose: 100 mg Brexpiprazole (Rexulti 0.5 Mg Tab (Nf)) 2 mg PO DAILY [facility] Last Admin: 06/20/17 09:26 Dose: 2 mg Sodium Chloride (Ns 0.9% 1000 Ml*) 1,000 mls @ 75 mls/hr IV PER RATE [facility] Last Admin: 06/19/17 23:43 Dose: 75 mls/hr Vancomycin HCl 1,250 mg/ (Sodium Chloride) 250 mls @ 166.667 mls/hr IVPB Q8H [facility] Last Admin: 06/20/17 09:24 Dose: 166.667 mls/hr Ketorolac Tromethamine (Toradol Inj*) 30 mg IV PUSH Q6H PRN PRN Reason: PAIN Last Admin: 06/20/17 13:03 Dose: 30 mg Morphine Sulfate (Morphine Inj (Syringe)*) 2 mg IV Q4H PRN PRN Reason: PAIN - SEVERE Last Admin: 06/20/17 13:04 Dose: 2 mg Mupirocin (Bactroban 2 % Oint*) 1 applic TOPICAL BID [facility] Last Admin: 06/20/17 09:24 Dose: 1 dose Omeprazole (Prilosec Cap*) 20 mg PO DAILY@0600 [facility] Last Admin: 06/20/17 05:55 Dose: 20 mg Ondansetron HCl (Zofran Inj*) 4 mg IV Q6H PRN PRN Reason: NAUSEA Last Admin: 06/19/17 19:23 Dose: 4 mg Oxybutynin Chloride (Ditropan Tab*) 5 mg PO DAILY [facility] Last Admin: 06/20/17 09:25 Dose: 5 mg Oxybutynin Chloride (Ditropan Tab*) 7.5 mg PO BEDTIME [facility] Last Admin: 06/19/17 21:52 Dose: 7.5 mg Pharmacy Consult (Vancomycin Per Pharmacy*) 1 note FOLLOW UP . PRN PRN Reason: PER PROTOCOL Pharmacy Profile Note (Vancomycin Trough Check) 1 note FOLLOW UP 729 ONE Stop: 06/21/17 07:31 Polyethylene Glycol/Electrolytes (Miralax*) 17 gm PO DAILY [facility] Last Admin: 06/20/17 09:26 Dose: 17 gm Rivaroxaban (Xarelto(*)) 15 mg PO BID [facility] Last Admin: 06/20/17 09:26 Dose: 15 mg Vilazodone HCl (Viibryd (Nf)) 40 mg PO DAILY [facility] Last Admin: 06/20/17 09:26 Dose: 40 mg Vital Signs - 8 hr 06/20/17 06/20/17 06/20/17 07:30 08:00 08:06 Temperature 99.3 F Pulse Rate 121 122 Respiratory 20 20 Rate Blood Pressure 115/57 (mmHg) O2 Sat by Pulse 92 87 96 Oximetry 06/20/17 06/20/17 13:04 14:04 Temperature Pulse Rate Respiratory 16 16 Rate Blood Pressure (mmHg) O2 Sat by Pulse Oximetry Oxygen Devices in Use Now: Nasal Cannula Eyes: No Scleral Icterus, PERRLA Ears/Nose/Mouth/Throat: NL Teeth, Lips, Gums, Mucous Membranes Moist Neck: NL Appearance and Movements; NL JVP, Trachea Midline Respiratory: Symmetrical Chest Expansion and Respiratory Effort, Clear to Auscultation Cardiovascular: NL Sounds; No Murmurs; No JVD, RRR Abdominal: NL Sounds; No Tenderness; No Distention Extremities: No Edema, No Clubbing, Cyanosis Skin: - - left breast dressing CDI Neurological: Alert and Oriented x 3, NL Muscle Strength and Tone, - - unable to ambulate 2/2 pain left hip Nutrition: Taking PO's Result Diagrams: 06/20/17 14:44 06/20/17 14:44 Microbiology and Other Data: Microbiology 06/18/17 10:42 Skin and Soft Tissue MRSA/MSSA (PCR - Final Breast Left Mrsa Negative S.aureus Negative Gram Stain - Final 06/18/17 10:42 Gram Stain - Final Breast Left Diagnostic Imaging: Patient Name: DINA MENDOSA Medical Record#: [id number] Ordering Physician: Danna Spence NP Acct.#: [id number] : 1970 Age: 47 Sex: F Location: [address] [place] [address] Exam Date: 06/20/17816 ADM Status: ADM IN Order Information: CTA CHEST Accession Number: [id number] CPT: 58523 INDICATION: Left groin pain and a positive d-dimer. Surgical history includes breast reduction. COMPARISON: Similar examination dated December 15, 2014 TECHNIQUE: Axial source images were acquired following the administration of 85 mL Omnipaque [address] angiographic technique. Coronal and sagittal reconstructed images were constructed and reviewed. FINDINGS: There are nonocclusive filling defects filling the right upper pulmonary artery , the interlobar artery and scattered in the segmental branches of the right middle and lower lobes. The thrombus extends to the distal most portion of the right main pulmonary artery. On the left there are scattered segmental arterial filling defects as well as a small filling defect at the distal most portion of the left pulmonary artery. There are small bilateral pleural effusions. There is consolidated density in the dependent portion of the bilateral lungs. Elsewhere the lungs appear adequately aerated. The heart is normal in size. There is no evidence of pericardial effusion. There is no evidence of aortic aneurysm or dissection. There is no mediastinal, hilar, or axillary lymphadenopathy. Bilaterally there are subcutaneous soft tissue densities involving the left greater than right breast. The largest is at the left breast measuring 2.3 x 5.0 cm in the axial plane. This is likely related to the patient's reported breast reduction surgery. Limited views of the upper abdomen show no abnormalities. IMPRESSION: 1. Positive for pulmonary embolism at the right greater than left mainstem pulmonary arteries as well as scattered lobar and segmental branches. 2. Subcutaneous densities overlying the left greater than right breast presumably related to the patient's breast reduction surgery. Findings were reported to Dr. Rutledge over the telephone at 0950 hours on June 20, 2017. <Electronically signed by Boris Dozier MD in [place]> 06/20/17953 Dictated By: Boris Dozier MD Dictated Date/Time: 06/20/17953 Transcribed Date/Time: 06/20/17935 Copy to: CC:Jaiden Echevarria MD; Gabe Villeda MD; Danna Spence NP; Дмитрий Rutledge MD ; Chiki Chandler MD; Fbaian 1 of 2 Patient Name: DINA MENDOSA Medical Record#: [id number] Ordering Physician: Fabian Pack MD Acct.#: [id number] : 1970 Age: 47 Sex: F Location: [address] [place] [address] MEDICAL Exam Date: 06/19/171939 ADM Status: ADM IN Order Information: MRI PELVIS W/O Accession Number: [id number] CPT: 42319 INDICATION: Left hip pain. COMPARISON: Comparison is made with a prior x-ray study of the left hip from June 17, 2017. Correlation is also made with a CT of the pelvis from June 17, 2017. TECHNIQUE: Axial and coronal T1 and T2-weighted images of the pelvis were obtained. FINDINGS: There is fluid tracking in the deep soft tissues and prominent muscle edema involving the left adductor muscles extending into the hamstring muscles. This is only partially visualized on this study and extends more inferior into the thigh. There are also smaller areas of edema in the right gluteus medius muscle and left gluteus medius and behzad muscles. No focal fluid collection or abscess is seen. The bones are normal in signal intensity. No joint effusion is seen. No significant arthritic change is noted. The visualized portion of the small bowel and colon appear nondistended. No free intraperitoneal fluid is present. The results of this examination were discussed with Dr. Atkins. IMPRESSION: THERE IS FLUID TRACKING IN THE DEEP SOFT TISSUES OF THE LEFT THIGH AND PROMINENT MUSCLE EDEMA IN THE LEFT THIGH. THERE IS ALSO MUSCLE EDEMA BILATERALLY WITHIN THE GLUTEAL MUSCLES. THIS IS A NONSPECIFIC FINDING ALTHOUGH MOST LIKELY SECONDARY TO AN INFECTIOUS OR INFLAMMATORY MYOSITIS. <Electronically signed by Francesco Hurst MD in [place]> 06/19/172114 Dictated By: Francesco Hurst MD Dictated Date/Time: 06/19/172114 Transcribed Date/Time: 06/19/172055 Copy to: CC:Jaiden Echevarria MD; Gabe Villeda MD; Chiki Chandler MD; Fabian Pack MD Imaging - [facility] Imaging - [facility] Imaging - [facility] [address] [address] ph ([phone]) ph ([phone]) ph ([phone]) 1 of 1 Assess/Plan/Problems-Billing Assessment: This is a 47 year old female with hx significant for MS on biologic therapy with recent breast reduction surgery that has inability to ambulate due to left hip and groin pain; 2/2 what appears to be hip abcess, myositis and now with DVT and bilateral PEs. - Patient Problems (1) Left hip pain Code(s): M25.552 - PAIN IN LEFT HIP SNOMED Code(s): 77025364 Comment: - Initial CT of hip, pelvis and lumbar spine negative - Ortho consulted, MRI's showing likely infectious myositis, recommending IR for drainage of left hip - ID consult appreciated, continue vanco, follow cultures, WBCs nl, afebrile at present - Pain control (2) History of recurrent pneumonia Status: Acute Code(s): Z87.01 - PERSONAL HISTORY OF PNEUMONIA (RECURRENT) SNOMED Code(s): 480363406 Comment: - Treated, resolved, CXR clear (3) Status post breast reduction Code(s): Z98.890 - OTHER SPECIFIED POSTPROCEDURAL STATES SNOMED Code(s): 283013614 Comment: - Followed by Dr. Echevarria consult appreciated - local wound care (4) Surgical wound infection Code(s): T81.4XXA - INFECTION FOLLOWING A PROCEDURE, INITIAL ENCOUNTER SNOMED Code(s): 03157115 Comment: - Improvement in surgical wound infection - Dr. Echevarria following, please see note/recs - Continue local wound care per plastics with soap and water cleanse, bactroban , ABD and CLAUDINE 2x daily (5) H/O multiple sclerosis Code(s): Z86.69 - PERSONAL HISTORY OF DIS OF THE NERVOUS SYS AND SENSE ORGANS SNOMED Code(s): 724670167 Comment: - At baseline, stable - DC tecfidera given current infectious myositis (6) Depression Code(s): F32.9 - MAJOR DEPRESSIVE DISORDER, SINGLE EPISODE, UNSPECIFIED SNOMED Code(s): 55226179 Comment: - Mood stable, continue home meds (7) Low urine output Code(s): R34 - ANURIA AND OLIGURIA SNOMED Code(s): 52804277 Comment: - Likely 2/2 low PO water intake and inactivity, does appear clinically very dry - Will bolus with 500ml NS and restart IVF at maintenance - Improved (8) Pulmonary emboli Code(s): I26.99 - OTHER PULMONARY EMBOLISM WITHOUT ACUTE COR PULMONALE SNOMED Code(s): 60580276 Comment: - Per CTA chest 06/20 bilateral, 2/2 left calf DVT - SOB improved, no respiratory distress noted - Xarelto started 06/19 (9) Transaminitis Code(s): R74.0 - NONSPEC ELEV OF LEVELS OF TRANSAMNS & LACTIC ACID DEHYDRGNSE SNOMED Code(s): 901383802 Comment: - likely 2/2 tecfidera which is being held now - Monitor LFTs Status and Disposition: Continue inpatient care and close monitoring. Counseling and/or Coordination of Care Minutes: Coordinated with staff and Dr. Hardy
[2017-06-20] MEDS: Magnesium Hydroxide LIQ* 30 ML UDC PO SCH (17:31)
[2017-06-20] MEDS: NS 0.9% 1000 ML* 1,000 ML IV SCH (19:36)
--- NOTE | 2017-06-20 21:08 | CONS ---
CONSULTATION REPORT: DATE OF CONSULT: 06/20/17 REQUESTING PROVIDER: Dnana Spence NP CONSULTING SERVICE: Infectious Disease. REASON FOR CONSULT: Left hip pain. IMPRESSION: 1. Recent bilateral mastectomy. There is an open area in the left incision without significant erythema or underlying fluctuance or drainage. I do not think there is currently soft tissue infection there. 2. Left hip pain with weightbearing and flexion and MRI shows fluid tracking the deep soft tissues in left thigh and muscle edema in the left thigh with mild tenderness to palpation. Along that distribution given that it is unilateral, infectious myositis is high in the differential and agree with attempt at aspiration by Interventional Radiology. If she is not making significant improvement or is rapidly worsening, she may need open wash out. 3. DVT and pulmonary embolus. 4. Fever. Blood cultures are pending. RECOMMENDATION: Continue vancomycin goal trough 15 to 20 while we await the results of blood cultures and aspiration of the left hip and left thigh collection. HISTORY OF PRESENT ILLNESS: This is a 47-year-old woman with multiple sclerosis , recent bilateral mastectomy. She had some breakdown at the incision on the left. Some redness, which has resolved since she has been here. She had severe left thigh pain, which brought her to the hospital. The MRI finding is above. She developed some low back pain and so a lumbar spine infection or cord abnormality. She has had fevers, chills, and sweats. Her temperature was only about 37.8 at max here. Appetite has been decreased. Swab of the left mastectomy site revealed normal kaylee. The left thigh pain has been about the same last couple of days. She can move her leg. It is worse with weightbearing, hurts to flex her hip as well. Pain medicine has helped. The pain sometimes goes into her groin but usually is more lateral. She has never had anything like this in the past. She had some leg swelling and then shortness of breath. Ultrasound showed a DVT on the left lower leg and pulmonary embolus by CAT scan. PAST MEDICAL HISTORY: 1. Multiple sclerosis. 2. Pneumonia. 3. Gastroesophageal reflux disease. 4. Hyperactive bladder. 5. Depression. 6. Posttraumatic stress disorder. 7. Status post bilateral breast reduction surgery, 2017. MEDICATIONS: 1. Amantadine. 2. Baclofen. 3. Brexpiprazole. 4. Oxybutynin. 5. Rivaroxaban. 6. Vancomycin 1250 mg every 8 hours. 7. Viibryd. ALLERGIES: PENICILLIN, SULFA, as well as ASPIRIN. FAMILY HISTORY: diabetes. SOCIAL HISTORY: She is disabled, past alcohol abuse, no injection drug use, she smokes tobacco. REVIEW OF SYSTEMS: All negative per 14-point review of systems except as noted above. PHYSICAL EXAM: Vital Signs: Temperature 37.4, heart rate is 110, respiratory rate 20, blood pressure 115/57, oxygen saturation 96% on 2 L. In general, she is awake, not in distress. Neurologic: She is oriented x3. Follows all commands. HEENT: There is no conjunctival hemorrhage. Oropharynx without lesions. Neck: Supple. Lymph Nodes: There is no inguinal, axillary, or epitrochlear lymphadenopathy. Heart: Regular and tachycardic without murmurs. Lungs: Clear to auscultation bilaterally. Abdomen: Soft, nontender, nondistended. There are bowel sounds present. Skin: There is no rash or splinter hemorrhage. Bilateral mastectomy incisions are intact. On the left, there is about a 1-cm open area, which is superficial. No fluctuance. Musculoskeletal: There is no spine tenderness to palpation. There is left lateral and medial leg tenderness to palpation. There is no pain with left leg log roll. There is some pain with flexion of the left hip. LABORATORY DATA: Creatinine 0.7. White blood cell count 7, hemoglobin 11, platelets 286. Please see impressions and recommendations outlined above, which I have discussed with Danna Spence NP. Thanks for asking me to see Ms. Cisneros in consultation. [id number]/[facility] #: [id number] [facility]
[2017-06-21] MEDS: Morphine INJ* 2 MG/ML 1 ML SYRINGE (TWO MG - NEW SYRINGE VERSION) IV PRN ×4 (00:27→19:05)
[2017-06-21] MEDS: Vancomycin(*) 1,250 MG in NS 0.9% 250 ML* 250 ML IVPB SCH ×2 (00:33→09:05)
[2017-06-21] MEDS: Omeprazole CAP* 20 MG PO SCH (05:45)
[2017-06-21] MEDS ORDERED: Vancomycin Trough Check NOTE FOLLOW UP ONE (07:30)
[2017-06-21] MEDS: Ketorolac INJ* 30 MG/ML 1 ML VIAL IV PUSH PRN ×2 (08:20→20:33)
[2017-06-21] MEDS: Oxybutynin TAB* 5 MG PO SCH ×2 (08:30→21:28)
[2017-06-21] MEDS: Baclofen TAB* 10 MG PO SCH ×2 (08:30→21:28)
[2017-06-21] MEDS: CMCS: Vilazodone (NF) 40 MG TAB PO SCH (08:30)
[2017-06-21] MEDS: Amantadine CAP* 100 MG PO SCH (08:30)
[2017-06-21] MEDS: Polyethylene Glycol 3350* 17 GM PACKET PO SCH (08:30)
[2017-06-21] MEDS: Rivaroxaban TAB(*) 15 MG PO SCH ×2 (08:30→20:34)
[2017-06-21] MEDS: Magnesium Hydroxide LIQ* 30 ML UDC PO SCH (08:30)
[2017-06-21] MEDS: Benzonatate CAP* 100 MG PO SCH ×2 (08:30→20:34)
[2017-06-21] MEDS: CMCS: Brexpiprazole (NF) 0.5 MG TAB PO SCH (08:31)
[2017-06-21] MEDS: NS 0.9% 1000 ML* 1,000 ML IV SCH (10:26)
[2017-06-21] MEDS: Mupirocin 2% OINT* TUBE TOPICAL SCH ×2 (10:48→20:34)
--- NOTE | 2017-06-21 10:54 | PN ---
Progress Note - Progress Note Date of Service: 06/21/17 SOAP: Subjective: patient resting comfortably with continued complaints of hip pain Objective: Vital Signs Temp Pulse Resp BP Pulse Ox 98.2 F 88 16 114/52 98 06/21/17 06:04 06/21/17 06:04 06/21/17 10:26 06/21/17 06:04 06/21/17 06:04 Laboratory Last Values WBC 7.2 10^3/ul (3.5-10.8) 06/20/17 14:44 RBC 3.76 10^6/ul (4.0-5.4) L 06/20/17 14:44 Hgb 11.1 g/dl (12.0-16.0) L 06/20/17 14:44 Hct 33 % (35-47) L 06/20/17 14:44 MCV 88 fL (80-97) 06/20/17 14:44 MCH 29 pg (27-31) 06/20/17 14:44 MCHC 33 g/dl (31-36) 06/20/17 14:44 RDW 16 % (10.5-15) H 06/20/17 14:44 Plt Count 315 10^3/ul (150-450) 06/20/17 14:44 MPV 8 um3 (7.4-10.4) 06/20/17 14:44 Neut % (Auto) 73.5 % (38-83) 06/20/17 14:44 Lymph % (Auto) 9.3 % (25-47) L 06/20/17 14:44 Sharp % (Auto) 15.3 % (1-9) H 06/20/17 14:44 Eos % (Auto) 1.3 % (0-6) 06/20/17 14:44 Baso % (Auto) 0.6 % (0-2) 06/20/17 14:44 Absolute Neuts (auto) 5.3 10^3/ul (1.5-7.7) 06/20/17 14:44 Absolute Lymphs (auto) 0.7 10^3/ul (1.0-4.8) L 06/20/17 14:44 Absolute Monos (auto) 1.1 10^3/ul (0-0.8) H 06/20/17 14:44 Absolute Eos (auto) 0.1 10^3/ul (0-0.6) 06/20/17 14:44 Absolute Basos (auto) 0 10^3/ul (0-0.2) 06/20/17 14:44 Absolute Nucleated RBC 0.01 10^3/ul 06/20/17 14:44 Nucleated RBC % 0.1 06/20/17 14:44 Sodium 137 mmol/L (133-145) 06/20/17 14:44 Potassium 3.9 mmol/L (3.5-5.0) 06/20/17 14:44 Chloride 105 mmol/L (101-111) 06/20/17 14:44 Carbon Dioxide 28 mmol/L (22-32) 06/20/17 14:44 Anion Gap 4 mmol/L (2-11) 06/20/17 14:44 BUN 7 mg/dL (6-24) 06/20/17 14:44 Creatinine 0.84 mg/dL (0.51-0.95) 06/20/17 14:44 Est GFR ( Amer) 93.1 (>60) 06/20/17 14:44 Est GFR (Non-Af Amer) 72.4 (>60) 06/20/17 14:44 BUN/Creatinine Ratio 8.3 (8-20) 06/20/17 14:44 Glucose 122 mg/dL (70-100) H 06/20/17 14:44 Calcium 8.3 mg/dL (8.6-10.3) L 06/20/17 14:44 Total Bilirubin 0.80 mg/dL (0.2-1.0) 06/20/17 14:44 AST 128 U/L (13-39) H 06/20/17 14:44 ALT 101 U/L (7-52) H 06/20/17 14:44 Alkaline Phosphatase 119 U/L (34-104) H 06/20/17 14:44 Total Protein 6.2 g/dL (6.4-8.9) L 06/20/17 14:44 Albumin 3.0 g/dL (3.2-5.2) L 06/20/17 14:44 Globulin 3.2 g/dL (2-4) 06/20/17 14:44 Albumin/Globulin Ratio 0.9 (1-3) L 06/20/17 14:44 Vancomycin Trough 21.2 mcg/mL 06/21/17 07:48 PE: NVI Assessment: 47yo with + PE, left hip/pelvis pain (questionable infection) Plan: 1) ID following 2) may require aspiration of hip fluid for culture 3) continue DVT prophylaxis
--- NOTE | 2017-06-21 15:21 | PN ---
Progress Note - Progress Note Date of Service: 06/21/17 Note: The left hip area remains painful. On exam I am able to passively flex the hip 50 degrees with very mild discomfort. I can logroll the hip with no discomfort. I agree with Dr. Hardy and would recommend an aspiration of the hip joint and a separate aspiration/biopsy of the area of concern for infectious myositis in interventional radiology under image guidance.
[2017-06-21] MEDS: Vancomycin(*) 1,000 MG in NS 0.9% 250 ML* 250 ML IVPB SCH (19:05)
--- NOTE | 2017-06-21 19:51 | PN ---
Subjective Date of Service: 06/21/17 Interval History: Patient seen and examined. Feeling better overall, no SOB, leg/hip pain with some improvement. Able to transfer to [facility] with one person assist. No further complaints. Objective Active Medications: Amantadine HCl (Symmetrel Cap*) 100 mg PO DAILY [facility] Last Admin: 06/21/17 08:30 Dose: 100 mg Baclofen (Lioresal Tab*) 10 mg PO BID [facility] Last Admin: 06/21/17 08:30 Dose: 10 mg Benzonatate (Tessalon Cap*) 100 mg PO BID [facility] Last Admin: 06/21/17 08:30 Dose: 100 mg Brexpiprazole (Rexulti 0.5 Mg Tab (Nf)) 2 mg PO DAILY [facility] Last Admin: 06/21/17 08:31 Dose: 2 mg Sodium Chloride (Ns 0.9% 1000 Ml*) 1,000 mls @ 75 mls/hr IV PER RATE [facility] Last Admin: 06/21/17 10:26 Dose: 75 mls/hr Vancomycin HCl 1,000 mg/ (Sodium Chloride) 250 mls @ 166.667 mls/hr IVPB Q8H [facility] Last Admin: 06/21/17 19:05 Dose: 166.667 mls/hr Ketorolac Tromethamine (Toradol Inj*) 30 mg IV PUSH Q6H PRN PRN Reason: PAIN Last Admin: 06/21/17 08:20 Dose: 30 mg Magnesium Hydroxide (Milk Of Castro Liq*) 30 ml PO DAILY [facility] Last Admin: 06/21/17 08:30 Dose: 30 ml Morphine Sulfate (Morphine Inj (Syringe)*) 2 mg IV Q4H PRN PRN Reason: PAIN - SEVERE Last Admin: 06/21/17 19:05 Dose: 2 mg Mupirocin (Bactroban 2 % Oint*) 1 applic TOPICAL BID [facility] Last Admin: 06/21/17 10:48 Dose: 1 dose Omeprazole (Prilosec Cap*) 20 mg PO DAILY@0600 [facility] Last Admin: 06/21/17 05:45 Dose: 20 mg Ondansetron HCl (Zofran Inj*) 4 mg IV Q6H PRN PRN Reason: NAUSEA Last Admin: 06/19/17 19:23 Dose: 4 mg Oxybutynin Chloride (Ditropan Tab*) 5 mg PO DAILY [facility] Last Admin: 06/21/17 08:30 Dose: 5 mg Oxybutynin Chloride (Ditropan Tab*) 7.5 mg PO BEDTIME [facility] Last Admin: 06/20/17 20:01 Dose: 7.5 mg Pharmacy Consult (Vancomycin Per Pharmacy*) 1 note FOLLOW UP . PRN PRN Reason: PER PROTOCOL Pharmacy Profile Note (Vancomycin Trough Check) 1 note FOLLOW UP 1800 ONE Stop: 06/22/17 18:01 Polyethylene Glycol/Electrolytes (Miralax*) 17 gm PO DAILY [facility] Last Admin: 06/21/17 08:30 Dose: Not Given Rivaroxaban (Xarelto(*)) 15 mg PO BID [facility] Last Admin: 06/21/17 08:30 Dose: 15 mg Vilazodone HCl (Viibryd (Nf)) 40 mg PO DAILY [facility] Last Admin: 06/21/17 08:30 Dose: 40 mg Vital Signs - 8 hr 06/21/17 06/21/17 06/21/17 11:56 15:22 19:05 Temperature 99.0 F Pulse Rate 93 Respiratory 18 16 20 Rate Blood Pressure 111/62 (mmHg) O2 Sat by Pulse 96 Oximetry Oxygen Devices in Use Now: Nasal Cannula Appearance: resting, NAD Eyes: PERRLA Ears/Nose/Mouth/Throat: NL Teeth, Lips, Gums, Mucous Membranes Moist Neck: NL Appearance and Movements; NL JVP, Trachea Midline Respiratory: Symmetrical Chest Expansion and Respiratory Effort, Clear to Auscultation Cardiovascular: NL Sounds; No Murmurs; No JVD Abdominal: NL Sounds; No Tenderness; No Distention Skin: - - surgical wound with less drainage left lateral breast, dressing CDI Neurological: Alert and Oriented x 3 Nutrition: Taking PO's Result Diagrams: 06/20/17 14:44 06/20/17 14:44 Microbiology and Other Data: Microbiology 06/18/17 10:42 Skin and Soft Tissue MRSA/MSSA (PCR - Final Breast Left Mrsa Negative S.aureus Negative Gram Stain - Final 06/18/17 10:42 Gram Stain - Final Breast Left Diagnostic Imaging: Patient Name: DINA MENDOSA Medical Record#: [id number] Ordering Physician: Danna Spence NP Acct.#: [id number] : 1970 Age: 47 Sex: F Location: [address] [place] [address] Exam Date: 06/20/17816 ADM Status: ADM IN Order Information: CTA CHEST Accession Number: [id number] CPT: 10299 INDICATION: Left groin pain and a positive d-dimer. Surgical history includes breast reduction. COMPARISON: Similar examination dated December 15, 2014 TECHNIQUE: Axial source images were acquired following the administration of 85 mL Omnipaque [address] angiographic technique. Coronal and sagittal reconstructed images were constructed and reviewed. FINDINGS: There are nonocclusive filling defects filling the right upper pulmonary artery , the interlobar artery and scattered in the segmental branches of the right middle and lower lobes. The thrombus extends to the distal most portion of the right main pulmonary artery. On the left there are scattered segmental arterial filling defects as well as a small filling defect at the distal most portion of the left pulmonary artery. There are small bilateral pleural effusions. There is consolidated density in the dependent portion of the bilateral lungs. Elsewhere the lungs appear adequately aerated. The heart is normal in size. There is no evidence of pericardial effusion. There is no evidence of aortic aneurysm or dissection. There is no mediastinal, hilar, or axillary lymphadenopathy. Bilaterally there are subcutaneous soft tissue densities involving the left greater than right breast. The largest is at the left breast measuring 2.3 x 5.0 cm in the axial plane. This is likely related to the patient's reported breast reduction surgery. Limited views of the upper abdomen show no abnormalities. IMPRESSION: 1. Positive for pulmonary embolism at the right greater than left mainstem pulmonary arteries as well as scattered lobar and segmental branches. 2. Subcutaneous densities overlying the left greater than right breast presumably related to the patient's breast reduction surgery. Findings were reported to Dr. Rutledge over the telephone at 0950 hours on June 20, 2017. <Electronically signed by Boris Dozier MD in [place]> 06/20/17953 Dictated By: Boris Dozier MD Dictated Date/Time: 06/20/17953 Transcribed Date/Time: 06/20/17935 Copy to: CC:Jaiden Echevarria MD; Gabe Villeda MD; Danna Spence OPTOMETRY ASSISTANT; Дмитрий Rutledge MD ; Chiki Chandler MD; Fabian 1 of 2 Patient Name: DINA MENDOSA Medical Record#: [id number] Ordering Physician: Fabian Pack MD Acct.#: [id number] : 1970 Age: 47 Sex: F Location: [address] [place] [address] MEDICAL Exam Date: 06/19/171939 ADM Status: ADM IN Order Information: MRI PELVIS W/O Accession Number: [id number] CPT: 65269 INDICATION: Left hip pain. COMPARISON: Comparison is made with a prior x-ray study of the left hip from June 17, 2017. Correlation is also made with a CT of the pelvis from June 17, 2017. TECHNIQUE: Axial and coronal T1 and T2-weighted images of the pelvis were obtained. FINDINGS: There is fluid tracking in the deep soft tissues and prominent muscle edema involving the left adductor muscles extending into the hamstring muscles. This is only partially visualized on this study and extends more inferior into the thigh. There are also smaller areas of edema in the right gluteus medius muscle and left gluteus medius and behzad muscles. No focal fluid collection or abscess is seen. The bones are normal in signal intensity. No joint effusion is seen. No significant arthritic change is noted. The visualized portion of the small bowel and colon appear nondistended. No free intraperitoneal fluid is present. The results of this examination were discussed with Dr. Atkins. IMPRESSION: THERE IS FLUID TRACKING IN THE DEEP SOFT TISSUES OF THE LEFT THIGH AND PROMINENT MUSCLE EDEMA IN THE LEFT THIGH. THERE IS ALSO MUSCLE EDEMA BILATERALLY WITHIN THE GLUTEAL MUSCLES. THIS IS A NONSPECIFIC FINDING ALTHOUGH MOST LIKELY SECONDARY TO AN INFECTIOUS OR INFLAMMATORY MYOSITIS. <Electronically signed by Francesco Hurst MD in [place]> 06/19/172114 Dictated By: Francesco Hurst MD Dictated Date/Time: 06/19/172114 Transcribed Date/Time: 06/19/172055 Copy to: CC:Jaiden Echevarria MD; Gabe Villeda MD; Chiki Chandler MD; Fabian Pack MD Imaging - [facility] Imaging - [facility] Imaging - [facility] [address] [address] ph [phone]) ph ([phone]) ph ([phone]) 1 of 1 Assess/Plan/Problems-Billing Assessment: This is a 47 year old female with hx significant for MS on biologic therapy with recent breast reduction surgery that has inability to ambulate due to left hip and groin pain; 2/2 what appears to be hip abcess, myositis and now with DVT and bilateral PEs. - Patient Problems (1) Left hip pain Code(s): M25.552 - PAIN IN LEFT HIP SNOMED Code(s): 63418569 Comment: - Initial CT of hip, pelvis and lumbar spine negative - Ortho consulted, MRI's showing likely infectious myositis, recommending IR for drainage of left hip, Dr. Dozier consulted - ID consult appreciated, continue vanco - trough high today, held - Follow cultures, WBCs nl, afebrile - Pain control (2) History of recurrent pneumonia Status: Acute Code(s): Z87.01 - PERSONAL HISTORY OF PNEUMONIA (RECURRENT) SNOMED Code(s): 003283667 Comment: - Treated, resolved, CXR clear (3) Status post breast reduction Code(s): Z98.890 - OTHER SPECIFIED POSTPROCEDURAL STATES SNOMED Code(s): 332713563 Comment: - Followed by Dr. Echevarria consult appreciated - local wound care (4) Surgical wound infection Code(s): T81.4XXA - INFECTION FOLLOWING A PROCEDURE, INITIAL ENCOUNTER SNOMED Code(s): 35324788 Comment: - Improvement in surgical wound infection - Dr. Echevarria following, please see note/recs - Continue local wound care per plastics with soap and water cleanse, bactroban , ABD and CLAUDINE 2x daily with improvement (5) H/O multiple sclerosis Code(s): Z86.69 - PERSONAL HISTORY OF DIS OF THE NERVOUS SYS AND SENSE ORGANS SNOMED Code(s): 542669083 Comment: - At baseline, stable - DC tecfidera given current infectious myositis (6) Depression Code(s): F32.9 - MAJOR DEPRESSIVE DISORDER, SINGLE EPISODE, UNSPECIFIED SNOMED Code(s): 23293551 Comment: - Mood stable, continue home meds (7) Low urine output Code(s): R34 - ANURIA AND OLIGURIA SNOMED Code(s): 25285802 Comment: - Resolved with IVF (8) Pulmonary emboli Code(s): I26.99 - OTHER PULMONARY EMBOLISM WITHOUT ACUTE COR PULMONALE SNOMED Code(s): 76721570 Comment: - Per CTA chest 06/20 bilateral, 2/2 left calf DVT - SOB improved, no respiratory distress noted - Xarelto started 06/19 - Stable (9) Transaminitis Code(s): R74.0 - NONSPEC ELEV OF LEVELS OF TRANSAMNS & LACTIC ACID DEHYDRGNSE SNOMED Code(s): 907835020 Comment: - likely 2/2 tecfidera which is being held now - Monitor LFTs Status and Disposition: Continue inpatient care and close monitoring. Await procedure in IR. Counseling and/or Coordination of Care Minutes: coordinated with staff
[2017-06-22] MEDS: NS 0.9% 1000 ML* 1,000 ML IV SCH ×2 (01:29→20:31)
[2017-06-22] MEDS: Vancomycin(*) 1,000 MG in NS 0.9% 250 ML* 250 ML IVPB SCH ×3 (02:09→20:32)
[2017-06-22] MEDS: Morphine INJ* 2 MG/ML 1 ML SYRINGE (TWO MG - NEW SYRINGE VERSION) IV PRN ×3 (03:31→17:13)
[2017-06-22] MEDS: Omeprazole CAP* 20 MG PO SCH (05:44)
--- NOTE | 2017-06-22 08:57 | PN ---
Progress Note - Progress Note Date of Service: 06/22/17 Note: No real change in her condition. The left hip continues to be painful. Continues to have less respiratory distress Afebrile. VSS able to flex and extend hip with minimal discomfort. internal rotation causes minimal discomfort, external rotation and abduction is slightly painful A/P: MRI consistent with myositis in adductors/short external rotators, doubt intra-articular infection based off her clinical pictures awaiting the results of the aspiration Laboratory Last Values WBC 7.2 10^3/ul (3.5-10.8) 06/20/17 14:44 RBC 3.76 10^6/ul (4.0-5.4) L 06/20/17 14:44 Hgb 11.1 g/dl (12.0-16.0) L 06/20/17 14:44 Hct 33 % (35-47) L 06/20/17 14:44 MCV 88 fL (80-97) 06/20/17 14:44 MCH 29 pg (27-31) 06/20/17 14:44 MCHC 33 g/dl (31-36) 06/20/17 14:44 RDW 16 % (10.5-15) H 06/20/17 14:44 Plt Count 315 10^3/ul (150-450) 06/20/17 14:44 MPV 8 um3 (7.4-10.4) 06/20/17 14:44 Neut % (Auto) 73.5 % (38-83) 06/20/17 14:44 Lymph % (Auto) 9.3 % (25-47) L 06/20/17 14:44 [place] % (Auto) 15.3 % (1-9) H 06/20/17 14:44 Eos % (Auto) 1.3 % (0-6) 06/20/17 14:44 Baso % (Auto) 0.6 % (0-2) 06/20/17 14:44 Absolute Neuts (auto) 5.3 10^3/ul (1.5-7.7) 06/20/17 14:44 Absolute Lymphs (auto) 0.7 10^3/ul (1.0-4.8) L 06/20/17 14:44 Absolute Monos (auto) 1.1 10^3/ul (0-0.8) H 06/20/17 14:44 Absolute Eos (auto) 0.1 10^3/ul (0-0.6) 06/20/17 14:44 Absolute Basos (auto) 0 10^3/ul (0-0.2) 06/20/17 14:44 Absolute Nucleated RBC 0.01 10^3/ul 06/20/17 14:44 Nucleated RBC % 0.1 06/20/17 14:44 Sodium 137 mmol/L (133-145) 06/20/17 14:44 Potassium 3.9 mmol/L (3.5-5.0) 06/20/17 14:44 Chloride 105 mmol/L (101-111) 06/20/17 14:44 Carbon Dioxide 28 mmol/L (22-32) 06/20/17 14:44 Anion Gap 4 mmol/L (2-11) 06/20/17 14:44 BUN 7 mg/dL (6-24) 06/20/17 14:44 Creatinine 0.84 mg/dL (0.51-0.95) 06/20/17 14:44 Est GFR ( Amer) 93.1 (>60) 06/20/17 14:44 Est GFR (Non-Af Amer) 72.4 (>60) 06/20/17 14:44 BUN/Creatinine Ratio 8.3 (8-20) 06/20/17 14:44 Glucose 122 mg/dL (70-100) H 06/20/17 14:44 Calcium 8.3 mg/dL (8.6-10.3) L 06/20/17 14:44 Total Bilirubin 0.80 mg/dL (0.2-1.0) 06/20/17 14:44 AST 128 U/L (13-39) H 06/20/17 14:44 ALT 101 U/L (7-52) H 06/20/17 14:44 Alkaline Phosphatase 119 U/L (34-104) H 06/20/17 14:44 Total Protein 6.2 g/dL (6.4-8.9) L 06/20/17 14:44 Albumin 3.0 g/dL (3.2-5.2) L 06/20/17 14:44 Globulin 3.2 g/dL (2-4) 06/20/17 14:44 Albumin/Globulin Ratio 0.9 (1-3) L 06/20/17 14:44 Vancomycin Trough 21.2 mcg/mL 06/21/17 07:48 Vital Signs Temp Pulse Resp BP Pulse Ox 97.8 F 71 16 106/56 100 06/22/17 03:31 06/22/17 03:31 06/22/17 04:56 06/22/17 03:31 06/22/17 03:31
[2017-06-22] MEDS: Baclofen TAB* 10 MG PO SCH ×2 (09:57→20:33)
[2017-06-22] MEDS: Benzonatate CAP* 100 MG PO SCH ×2 (09:57→20:33)
[2017-06-22] MEDS: Oxybutynin TAB* 5 MG PO SCH ×2 (09:57→20:33)
[2017-06-22] MEDS: Amantadine CAP* 100 MG PO SCH (09:58)
[2017-06-22] MEDS: CMCS: Brexpiprazole (NF) 0.5 MG TAB PO SCH (09:59)
[2017-06-22] MEDS: Magnesium Hydroxide LIQ* 30 ML UDC PO SCH (10:00)
[2017-06-22] MEDS: Mupirocin 2% OINT* TUBE TOPICAL SCH ×2 (10:00→20:50)
[2017-06-22] MEDS: Rivaroxaban TAB(*) 15 MG PO SCH ×2 (10:01→20:34)
[2017-06-22] MEDS: Polyethylene Glycol 3350* 17 GM PACKET PO SCH (10:01)
[2017-06-22] MEDS: CMCS: Vilazodone (NF) 40 MG TAB PO SCH (10:02)
--- NOTE | 2017-06-22 12:30 | PN ---
Progress Note - Progress Note Date of Service: 06/22/17 Note: We are still working on obtaining the aspiration. I have made the patient npo at midnight to facilitate getting the aspiration done.
[2017-06-22 13:50] LABS: ABS Basophils 0 10^3/ul (0-0.2); ABS Eosinophils 0.2 10^3/ul (0-0.6); ABS Lymphocytes 0.7 10^3/ul (1.0-4.8); ABS Monocytes 0.7 10^3/ul (0-0.8); ABS Neutrophils 4.6 10^3/ul (1.5-7.7); ABS Nucleated RBC 0.01 10^3/ul; Eosinophil % 2.9 % (0-6); Hematocrit 33 % (35-47); Hemoglobin 10.7 g/dl (12.0-16.0); Lymphocyte % 11.8 % (25-47); Mean Corpuscular HGB Conc 33 g/dl (31-36); Mean Corpuscular Hemoglobin 29 pg (27-31); Mean Corpuscular Volume 90 fL (80-97); Mean Platelet Volume 8 um3 (7.4-10.4); Nucleated Red Blood Cells % 0.1; Platelet Count 338 10^3/ul (150-450); Red Blood Count 3.63 10^6/ul (4.0-5.4); Red Cell Distribution Width 16 % (10.5-15); White Blood Count 6.3 10^3/ul (3.5-10.8)
[2017-06-22 13:56] LABS: INR 1.62 (0.77-1.02)
[2017-06-22] MEDS: Ketorolac INJ* 30 MG/ML 1 ML VIAL IV PUSH PRN (14:21)
--- NOTE | 2017-06-22 16:45 | RAD ---
INDICATION: Clinical concern for septic LEFT hip. Joint aspiration requested. COMPARISON: June 19, 2017 MRI without evidence for LEFT hip joint effusion. Written informed consent obtained. Timeout performed. PROCEDURE: Routine aseptic skin prep and sterile draping of procedural field. Following infiltration of 4 mm 1% lidocaine a 20-gauge coaxial needle was advanced into the LEFT hip joint at the lateral margin of the femoral neck. No joint fluid obtained on aspiration. Intra-articular location of the needle confirmed with 0.5 mL Omnipaque 180 contrast injection which documents the joint capsule closely opposing the femoral neck without evidence for joint effusion. The needle was removed. Procedure well tolerated without immediate complication. 10 seconds fluoroscopy. IMPRESSION: Fluoroscopic guided placement of a needle into the LEFT hip joint without evidence for joint effusion on attempted aspiration. CPT II Codes: 6045F
[2017-06-22] MEDS ORDERED: Vancomycin Trough Check NOTE FOLLOW UP ONE (18:00)
--- NOTE | 2017-06-22 18:48 | PN ---
Subjective Date of Service: 06/22/17 Interval History: Patient seen and examined. Went to to have left hip aspiration. Sitting up in bed, states pain when sitting too long or standing too long but improved from before. Remains afebrile, no chills, states some pain with deep inspiration but no acute SOB and calf pain improved. Objective Active Medications: Amantadine HCl (Symmetrel Cap*) 100 mg PO DAILY [facility] Last Admin: 06/22/17 09:58 Dose: 100 mg Baclofen (Lioresal Tab*) 10 mg PO BID [facility] Last Admin: 06/22/17 09:57 Dose: 10 mg Benzonatate (Tessalon Cap*) 100 mg PO BID [facility] Last Admin: 06/22/17 09:57 Dose: 100 mg Brexpiprazole (Rexulti 0.5 Mg Tab (Nf)) 2 mg PO DAILY [facility] Last Admin: 06/22/17 09:59 Dose: 2 mg Sodium Chloride (Ns 0.9% 1000 Ml*) 1,000 mls @ 75 mls/hr IV PER RATE [facility] Last Admin: 06/22/17 01:29 Dose: 75 mls/hr Vancomycin HCl 1,000 mg/ (Sodium Chloride) 250 mls @ 166.667 mls/hr IVPB Q8H [facility] Last Admin: 06/22/17 10:38 Dose: 166.667 mls/hr Magnesium Hydroxide (Milk Of Magnmichelle Liq*) 30 ml PO DAILY [facility] Last Admin: 06/22/17 10:00 Dose: Not Given Morphine Sulfate (Morphine Inj (Syringe)*) 2 mg IV Q4H PRN PRN Reason: PAIN - SEVERE Last Admin: 06/22/17 17:13 Dose: 2 mg Mupirocin (Bactroban 2 % Oint*) 1 applic TOPICAL BID [facility] Last Admin: 06/22/17 10:00 Dose: 1 applic Omeprazole (Prilosec Cap*) 20 mg PO DAILY@0600 [facility] Last Admin: 06/22/17 05:44 Dose: 20 mg Ondansetron HCl (Zofran Inj*) 4 mg IV Q6H PRN PRN Reason: NAUSEA Last Admin: 06/19/17 19:23 Dose: 4 mg Oxybutynin Chloride (Ditropan Tab*) 5 mg PO DAILY [facility] Last Admin: 06/22/17 09:57 Dose: 5 mg Oxybutynin Chloride (Ditropan Tab*) 7.5 mg PO BEDTIME [facility] Last Admin: 06/21/17 21:28 Dose: 7.5 mg Pharmacy Consult (Vancomycin Per Pharmacy*) 1 note FOLLOW UP . PRN PRN Reason: PER PROTOCOL Polyethylene Glycol/Electrolytes (Miralax*) 17 gm PO DAILY [facility] Last Admin: 06/22/17 10:01 Dose: Not Given Rivaroxaban (Xarelto(*)) 15 mg PO BID [facility] Last Admin: 06/22/17 10:01 Dose: 15 mg Vilazodone HCl (Viibryd (Nf)) 40 mg PO DAILY [facility] Last Admin: 06/22/17 10:02 Dose: 40 mg Vital Signs - 8 hr 06/22/17 06/22/17 06/22/17 12:00 12:13 16:10 Temperature 98.2 F 98.2 F Pulse Rate 95 80 Respiratory 16 18 17 Rate Blood Pressure 106/60 99/42 (mmHg) O2 Sat by Pulse 100 97 Oximetry 06/22/17 06/22/17 17:08 17:13 Temperature 98.3 F Pulse Rate 80 Respiratory 16 16 Rate Blood Pressure 114/59 (mmHg) O2 Sat by Pulse 100 Oximetry Oxygen Devices in Use Now: Nasal Cannula Eyes: No Scleral Icterus, PERRLA Ears/Nose/Mouth/Throat: NL Teeth, Lips, Gums, Clear Oropharnyx Neck: NL Appearance and Movements; NL JVP, Trachea Midline Respiratory: Symmetrical Chest Expansion and Respiratory Effort, Clear to Auscultation Cardiovascular: NL Sounds; No Murmurs; No JVD, RRR Abdominal: NL Sounds; No Tenderness; No Distention Extremities: No Edema, No Clubbing, Cyanosis, - - tender left anterior thigh and lower lumbar region Skin: - - dressing to left breast surgical incision with less drainage Neurological: Alert and Oriented x 3, NL Sensation Nutrition: Taking PO's Result Diagrams: 06/22/17 13:41 06/22/17 13:41 Microbiology and Other Data: Microbiology 06/18/17 10:42 Skin and Soft Tissue MRSA/MSSA (PCR - Final Breast Left Mrsa Negative S.aureus Negative Gram Stain - Final 06/18/17 10:42 Gram Stain - Final Breast Left Diagnostic Imaging: LEFT HIP ASPIRATION REPORT Patient Name: DINA MENDOSA Medical Record#: [id number] Ordering Physician: Fabian Pack MD Acct.#: [id number] : 1970 Age: 47 Sex: F Location: [address] [place] [address] MEDICAL Exam Date: 06/22/17 1301 ADM Status: ADM IN Order Information: Aspiration/ Injection Hip L Accession Number: [id number] CPT: 38568 INDICATION: Clinical concern for septic LEFT hip. Joint aspiration requested. COMPARISON: June 19, 2017 MRI without evidence for LEFT hip joint effusion. Written informed consent obtained. Timeout performed. PROCEDURE: Routine aseptic skin prep and sterile draping of procedural field. Following infiltration of 4 mm 1% lidocaine a 20-gauge coaxial needle was advanced into the LEFT hip joint at the lateral margin of the femoral neck. No joint fluid obtained on aspiration. Intra-articular location of the needle confirmed with 0.5 mL Omnipaque 180 contrast injection which documents the joint capsule closely opposing the femoral neck without evidence for joint effusion. The needle was removed. Procedure well tolerated without immediate complication. 10 seconds fluoroscopy. IMPRESSION: Fluoroscopic guided placement of a needle into the LEFT hip joint without evidence for joint effusion on attempted aspiration. CPT II Codes: 6045F <Electronically signed by Kevin Fournier MD in OV> 06/22/17 1642 Dictated By: Kevin Fournier MD Dictated Date/Time: 06/22/17 1642 Transcribed Date/Time: 06/22/17 1640 Copy to: CC:Jaiden Echevarria MD; Gabe Villeda MD; Дмитрий Rutledge MD; Chiki Chandler MD; Fabian Pack MD; Boris Dozier MD Imaging - [facility] Imaging - [facility] [address] [address] ph ([phone]) ph ([phone]) ph ([phone]) 1 of 1 CTA CHEST Patient Name: DINA MENDOSA Medical Record#: [id number] Ordering Physician: Danna Spence NP Acct.#: [id number] : 1970 Age: 47 Sex: F Location: [address] [place] [address] Exam Date: 06/20/17816 ADM Status: ADM IN Order Information: CTA CHEST Accession Number: [id number] CPT: 17790 INDICATION: Left groin pain and a positive d-dimer. Surgical history includes breast reduction. COMPARISON: Similar examination dated December 15, 2014 TECHNIQUE: Axial source images were acquired following the administration of 85 mL Omnipaque [address] angiographic technique. Coronal and sagittal reconstructed images were constructed and reviewed. FINDINGS: There are nonocclusive filling defects filling the right upper pulmonary artery , the interlobar artery and scattered in the segmental branches of the right middle and lower lobes. The thrombus extends to the distal most portion of the right main pulmonary artery. On the left there are scattered segmental arterial filling defects as well as a small filling defect at the distal most portion of the left pulmonary artery. There are small bilateral pleural effusions. There is consolidated density in the dependent portion of the bilateral lungs. Elsewhere the lungs appear adequately aerated. The heart is normal in size. There is no evidence of pericardial effusion. There is no evidence of aortic aneurysm or dissection. There is no mediastinal, hilar, or axillary lymphadenopathy. Bilaterally there are subcutaneous soft tissue densities involving the left greater than right breast. The largest is at the left breast measuring 2.3 x 5.0 cm in the axial plane. This is likely related to the patient's reported breast reduction surgery. Limited views of the upper abdomen show no abnormalities. IMPRESSION: 1. Positive for pulmonary embolism at the right greater than left mainstem pulmonary arteries as well as scattered lobar and segmental branches. 2. Subcutaneous densities overlying the left greater than right breast presumably related to the patient's breast reduction surgery. Findings were reported to Dr. Rutledge over the telephone at 0950 hours on June 20, 2017. <Electronically signed by Boris Dozier MD in OV> 06/20/17 0954 Dictated By: Boris Dozier MD Dictated Date/Time: 06/20/1754 Transcribed Date/Time: 06/20/17935 Copy to: CC:Jaiden Echevarria MD; Gabe Villeda MD; Danna Spence NP; Дмитрий Rutledge MD ; Chiki Chandler MD; Fabian 1 of 2 MRI PELVIS Patient Name: DINA MENDOSA Medical Record#: [id number] Ordering Physician: Fabian Pack MD Acct.#: [id number] : 1970 Age: 47 Sex: F Location: [address] [place] [address] MEDICAL Exam Date: 06/19/171939 ADM Status: ADM IN Order Information: MRI PELVIS W/O Accession Number: [id number] CPT: 86720 INDICATION: Left hip pain. COMPARISON: Comparison is made with a prior x-ray study of the left hip from June 17, 2017. Correlation is also made with a CT of the pelvis from June 17, 2017. TECHNIQUE: Axial and coronal T1 and T2-weighted images of the pelvis were obtained. FINDINGS: There is fluid tracking in the deep soft tissues and prominent muscle edema involving the left adductor muscles extending into the hamstring muscles. This is only partially visualized on this study and extends more inferior into the thigh. There are also smaller areas of edema in the right gluteus medius muscle and left gluteus medius and behzad muscles. No focal fluid collection or abscess is seen. The bones are normal in signal intensity. No joint effusion is seen. No significant arthritic change is noted. The visualized portion of the small bowel and colon appear nondistended. No free intraperitoneal fluid is present. The results of this examination were discussed with Dr. Atkins. IMPRESSION: THERE IS FLUID TRACKING IN THE DEEP SOFT TISSUES OF THE LEFT THIGH AND PROMINENT MUSCLE EDEMA IN THE LEFT THIGH. THERE IS ALSO MUSCLE EDEMA BILATERALLY WITHIN THE GLUTEAL MUSCLES. THIS IS A NONSPECIFIC FINDING ALTHOUGH MOST LIKELY SECONDARY TO AN INFECTIOUS OR INFLAMMATORY MYOSITIS. <Electronically signed by Francesco Hurst MD in OV> 06/19/172114 Dictated By: Francesco Hurst MD Dictated Date/Time: 06/19/172114 Transcribed Date/Time: 06/19/172055 Copy to: CC:Jaiden Echevarria MD; Gabe Villeda MD; Chiki Chandler MD; Fabian Pack MD Imaging - [facility] Imaging - [facility] Imaging - [facility] [id number] [place] [address] ph [phone]) ph ([phone]) ph [phone]) 1 of Assess/Plan/Problems-Billing Assessment: This is a 47 year old female with hx significant for MS on biologic therapy with recent breast reduction surgery that has inability to ambulate due to left hip and groin pain; 2/2 what appears to be hip abcess, myositis and now with DVT and bilateral PEs that had IR guided hip aspiration today. - Patient Problems (1) Left hip pain Code(s): M25.552 - PAIN IN LEFT HIP SNOMED Code(s): 95285896 Comment: - Initial CT of hip, pelvis and lumbar spine negative - MRI with myositis and possible joint infection left hip - IR today for left hip aspiration, per report, does not appear to be infected - Ortho and ID following - Follow cultures, WBCs nl, afebrile - Pain control - PT, ambulate as tolerated - Appreciate recs from all disciplines (2) History of recurrent pneumonia Status: Acute Code(s): Z87.01 - PERSONAL HISTORY OF PNEUMONIA (RECURRENT) SNOMED Code(s): 520306099 Comment: - Treated, resolved, CXR clear (3) Status post breast reduction Code(s): Z98.890 - OTHER SPECIFIED POSTPROCEDURAL STATES SNOMED Code(s): 614447548 Comment: - Followed by Dr. Echevarria consult appreciated - local wound care (4) Surgical wound infection Code(s): T81.4XXA - INFECTION FOLLOWING A PROCEDURE, INITIAL ENCOUNTER SNOMED Code(s): 13104094 Comment: - Improvement in surgical wound infection - Dr. Echevarria following, please see note/recs - Continue local wound care per plastics with soap and water cleanse, bactroban , ABD and CLAUDINE 2x daily with continued improvement (5) H/O multiple sclerosis Code(s): Z86.69 - PERSONAL HISTORY OF DIS OF THE NERVOUS SYS AND SENSE ORGANS SNOMED Code(s): 644983345 Comment: - At baseline, stable - DC tecfidera given current infectious myositis and PEs (6) Depression Code(s): F32.9 - MAJOR DEPRESSIVE DISORDER, SINGLE EPISODE, UNSPECIFIED SNOMED Code(s): 84174626 Comment: - Mood stable, continue home meds (7) Low urine output Code(s): R34 - ANURIA AND OLIGURIA SNOMED Code(s): 72336784 Comment: - Resolved with IVF (8) Pulmonary emboli Code(s): I26.99 - OTHER PULMONARY EMBOLISM WITHOUT ACUTE COR PULMONALE SNOMED Code(s): 48207476 Comment: - Per CTA chest 06/20 bilateral, 2/2 left calf DVT - SOB improved, no respiratory distress noted - Xarelto 15mg BID started 06/19 will need to transition to maintenance dose after 21 days (decrease to 20mg daily on july 10) - Respiratory status stable (9) Transaminitis Code(s): R74.0 - NONSPEC ELEV OF LEVELS OF TRANSAMNS & LACTIC ACID DEHYDRGNSE SNOMED Code(s): 331507856 Comment: - likely 2/2 tecfidera which is being held now - Monitor LFTs Status and Disposition: Continue inpatient care and close monitoring. Recommend PT eval and poss acute rehab at DC when clear by ID and ortho. Counseling and/or Coordination of Care Minutes: coordinated with patient and Dr. Shine Pack
[2017-06-22 19:11] LABS: Vancomycin Trough 19.7 mcg/mL
[2017-06-23] MEDS: Omeprazole CAP* 20 MG PO SCH (06:42)
[2017-06-23] MEDS: Vancomycin(*) 1,000 MG in NS 0.9% 250 ML* 250 ML IVPB SCH ×2 (07:58→21:15)
[2017-06-23] MEDS: Rivaroxaban TAB(*) 15 MG PO SCH ×2 (08:02→21:26)
[2017-06-23] MEDS: Baclofen TAB* 10 MG PO SCH ×2 (08:02→21:36)
[2017-06-23] MEDS: Amantadine CAP* 100 MG PO SCH (08:02)
[2017-06-23] MEDS: Benzonatate CAP* 100 MG PO SCH ×2 (08:03→21:16)
[2017-06-23] MEDS: Oxybutynin TAB* 5 MG PO SCH ×2 (08:03→21:19)
[2017-06-23] MEDS: CMCS: Brexpiprazole (NF) 0.5 MG TAB PO SCH (08:03)
[2017-06-23] MEDS: CMCS: Vilazodone (NF) 40 MG TAB PO SCH (08:04)
[2017-06-23] MEDS: Polyethylene Glycol 3350* 17 GM PACKET PO SCH (08:46)
[2017-06-23] MEDS: Magnesium Hydroxide LIQ* 30 ML UDC PO SCH (08:46)
--- NOTE | 2017-06-23 10:54 | PN ---
Progress Note - Progress Note Date of Service: 06/23/17 SOAP: Subjective: []Patient seen at bedside. She confirms Left hip and back pain. She confirms continued chest pain no worse than previous. Patient had a self limited nosebleed today. Objective: []General: Well appearing, NAD LLE: tenderness to palpation of left groin and left lower back. No skin breakdown, no obvious deformity. Able to flex and extend at hip. Vital Signs Temp 98.7 F 06/23/17 08:01 Pulse 86 06/23/17 08:01 Resp 17 06/23/17 08:01 BP 130/65 06/23/17 08:01 Pulse Ox 97 06/23/17 08:01 Intake & Output 06/22/17 06/23/17 06/23/17 18:59 06:59 18:59 Intake Total 1581 1265 1137 Balance 1581 1265 1137 Intake: IV Fluids 622 872 ABX - VANCOMYCIN 622 NS (0.9%) 872 IVPB 289 265 265 ABX - VANCOMYCIN 289 265 265 Oral 670 1000 Other: Estimated Void Medium Medium # Bowel Movements 0 0 # Voids 1 1 Laboratory Last Values WBC 6.3 10^3/ul (3.5-10.8) 06/22/17 13:41 RBC 3.63 10^6/ul (4.0-5.4) L 06/22/17 13:41 Hgb 10.7 g/dl (12.0-16.0) L 06/22/17 13:41 Hct 33 % (35-47) L 06/22/17 13:41 MCV 90 fL (80-97) 06/22/17 13:41 MCH 29 pg (27-31) 06/22/17 13:41 MCHC 33 g/dl (31-36) 06/22/17 13:41 RDW 16 % (10.5-15) H 06/22/17 13:41 Plt Count 338 10^3/ul (150-450) 06/22/17 13:41 MPV 8 um3 (7.4-10.4) 06/22/17 13:41 Neut % (Auto) 72.9 % (38-83) 06/22/17 13:41 Lymph % (Auto) 11.8 % (25-47) L 06/22/17 13:41 Gillespie % (Auto) 11.8 % (1-9) H 06/22/17 13:41 Eos % (Auto) 2.9 % (0-6) 06/22/17 13:41 Baso % (Auto) 0.6 % (0-2) 06/22/17 13:41 Absolute Neuts (auto) 4.6 10^3/ul (1.5-7.7) 06/22/17 13:41 Absolute Lymphs (auto) 0.7 10^3/ul (1.0-4.8) L 06/22/17 13:41 Absolute Monos (auto) 0.7 10^3/ul (0-0.8) 06/22/17 13:41 Absolute Eos (auto) 0.2 10^3/ul (0-0.6) 06/22/17 13:41 Absolute Basos (auto) 0 10^3/ul (0-0.2) 06/22/17 13:41 Absolute Nucleated RBC 0.01 10^3/ul 06/22/17 13:41 Nucleated RBC % 0.1 06/22/17 13:41 INR (Anticoag Therapy) 1.62 (0.77-1.02) H 06/22/17 13:41 Sodium 138 mmol/L (133-145) 06/22/17 13:41 Potassium 3.9 mmol/L (3.5-5.0) 06/22/17 13:41 Chloride 107 mmol/L (101-111) 06/22/17 13:41 Carbon Dioxide 25 mmol/L (22-32) 06/22/17 13:41 Anion Gap 6 mmol/L (2-11) 06/22/17 13:41 BUN 8 mg/dL (6-24) 06/22/17 13:41 Creatinine 0.77 mg/dL (0.51-0.95) 06/22/17 13:41 Est GFR ( Amer) 102.9 (>60) 06/22/17 13:41 Est GFR (Non-Af Amer) 80.0 (>60) 06/22/17 13:41 BUN/Creatinine Ratio 10.4 (8-20) 06/22/17 13:41 Glucose 134 mg/dL (70-100) H 06/22/17 13:41 Calcium 8.3 mg/dL (8.6-10.3) L 06/22/17 13:41 Total Bilirubin 0.30 mg/dL (0.2-1.0) 06/22/17 13:41 AST 37 U/L (13-39) 06/22/17 13:41 ALT 56 U/L (7-52) H 06/22/17 13:41 Alkaline Phosphatase 119 U/L (34-104) H 06/22/17 13:41 Total Protein 6.1 g/dL (6.4-8.9) L 06/22/17 13:41 Albumin 3.0 g/dL (3.2-5.2) L 06/22/17 13:41 Globulin 3.1 g/dL (2-4) 06/22/17 13:41 Albumin/Globulin Ratio 1.0 (1-3) 06/22/17 13:41 Vancomycin Trough 19.7 mcg/mL 06/22/17 18:42 Assessment: []Myositis ( infectious vs inflammatory) Pulmonary embolism Plan: []Await results of aspiration Xarelto
[2017-06-23] MEDS: Morphine INJ* 2 MG/ML 1 ML SYRINGE (TWO MG - NEW SYRINGE VERSION) IV PRN ×2 (12:43→19:29)
[2017-06-23] MEDS: Mupirocin 2% OINT* TUBE TOPICAL SCH ×2 (12:48→21:20)
--- NOTE | 2017-06-23 12:57 | PN ---
Subjective Date of Service: 06/23/17 Interval History: Continues to c/o left groin, calf and thigh pain. States that the pain is improving to left breast. Denies shortness of breath, Denies nausea vomiting or diarrhea. Denies abd pain. Denies chest pain. Family History: Unchanged from Admission Social History: Unchanged from Admission Past Medical History: Unchanged from Admission Objective Active Medications: Amantadine HCl (Symmetrel Cap*) 100 mg PO DAILY [facility] Last Admin: 06/23/17 08:02 Dose: 100 mg Baclofen (Lioresal Tab*) 10 mg PO BID [facility] Last Admin: 06/23/17 08:02 Dose: 10 mg Benzonatate (Tessalon Cap*) 100 mg PO BID [facility] Last Admin: 06/23/17 08:03 Dose: 100 mg Brexpiprazole (Rexulti 0.5 Mg Tab (Nf)) 2 mg PO DAILY [facility] Last Admin: 06/23/17 08:03 Dose: 2 mg Sodium Chloride (Ns 0.9% 1000 Ml*) 1,000 mls @ 75 mls/hr IV PER RATE [facility] Last Admin: 06/22/17 20:31 Dose: 75 mls/hr Vancomycin HCl 1,000 mg/ (Sodium Chloride) 250 mls @ 166.667 mls/hr IVPB Q12H [facility] Last Admin: 06/23/17 07:58 Dose: 166.667 mls/hr Magnesium Hydroxide (Milk Of Magnmichelle Liq*) 30 ml PO DAILY [facility] Last Admin: 06/23/17 08:46 Dose: Not Given Morphine Sulfate (Morphine Inj (Syringe)*) 2 mg IV Q4H PRN PRN Reason: PAIN - SEVERE Last Admin: 06/23/17 12:43 Dose: 2 mg Mupirocin (Bactroban 2 % Oint*) 1 applic TOPICAL BID [facility] Last Admin: 06/23/17 12:48 Dose: 1 applic Omeprazole (Prilosec Cap*) 20 mg PO DAILY@0600 [facility] Last Admin: 06/23/17 06:42 Dose: 20 mg Ondansetron HCl (Zofran Inj*) 4 mg IV Q6H PRN PRN Reason: NAUSEA Last Admin: 06/19/17 19:23 Dose: 4 mg Oxybutynin Chloride (Ditropan Tab*) 5 mg PO DAILY [facility] Last Admin: 06/23/17 08:03 Dose: 5 mg Oxybutynin Chloride (Ditropan Tab*) 7.5 mg PO BEDTIME [facility] Last Admin: 06/22/17 20:33 Dose: 7.5 mg Pharmacy Consult (Vancomycin Per Pharmacy*) 1 note FOLLOW UP . PRN PRN Reason: PER PROTOCOL Pharmacy Profile Note (Vancomycin Trough Check) 1 note FOLLOW UP 0800 ONE Stop: 06/25/17 08:01 Polyethylene Glycol/Electrolytes (Miralax*) 17 gm PO DAILY [facility] Last Admin: 06/23/17 08:46 Dose: Not Given Rivaroxaban (Xarelto(*)) 15 mg PO BID [facility] Last Admin: 06/23/17 08:02 Dose: 15 mg Vilazodone HCl (Viibryd (Nf)) 40 mg PO DAILY [facility] Last Admin: 06/23/17 08:04 Dose: 40 mg Vital Signs - 8 hr 06/23/17 06/23/17 08:01 12:43 Temperature 98.7 F Pulse Rate 86 Respiratory 17 18 Rate Blood Pressure 130/65 (mmHg) O2 Sat by Pulse 97 Oximetry Oxygen Devices in Use Now: Nasal Cannula Appearance: appears comfortable resting in bed. Eyes: No Scleral Icterus, PERRLA Ears/Nose/Mouth/Throat: NL Teeth, Lips, Gums, Clear Oropharnyx, Mucous Membranes Moist Neck: NL Appearance and Movements; NL JVP, Trachea Midline Respiratory: Symmetrical Chest Expansion and Respiratory Effort, Clear to Auscultation Cardiovascular: NL Sounds; No Murmurs; No JVD, No Edema Abdominal: NL Sounds; No Tenderness; No Distention Extremities: No Clubbing, Cyanosis, - - c/o left calf and thigh tenderness, swelling noted to left leg. Skin: - - dressing intact to left left breast, 2 small open areas noted to left breast with minimal drainage. Neurological: Alert and Oriented x 3 Nutrition: Taking PO's Result Diagrams: 06/22/17 13:41 06/22/17 13:41 Microbiology and Other Data: Microbiology 06/18/17 10:42 Skin and Soft Tissue MRSA/MSSA (PCR - Final Breast Left Mrsa Negative S.aureus Negative Gram Stain - Final 06/18/17 10:42 Gram Stain - Final Breast Left Diagnostic Imaging: LEFT HIP ASPIRATION REPORT Patient Name: DINA MENDOSA Medical Record#: [id number] Ordering Physician: Fabain Pack MD Acct.#: [id number] : 1970 Age: 47 Sex: F Location: [address] [place] [address] Exam Date: 06/22/17 1301 ADM Status: ADM IN Order Information: Aspiration/ Injection Hip L Accession Number: [id number] CPT: 87627 INDICATION: Clinical concern for septic LEFT hip. Joint aspiration requested. COMPARISON: June 19, 2017 MRI without evidence for LEFT hip joint effusion. Written informed consent obtained. Timeout performed. PROCEDURE: Routine aseptic skin prep and sterile draping of procedural field. Following infiltration of 4 mm 1% lidocaine a 20-gauge coaxial needle was advanced into the LEFT hip joint at the lateral margin of the femoral neck. No joint fluid obtained on aspiration. Intra-articular location of the needle confirmed with 0.5 mL Omnipaque 180 contrast injection which documents the joint capsule closely opposing the femoral neck without evidence for joint effusion. The needle was removed. Procedure well tolerated without immediate complication. 10 seconds fluoroscopy. IMPRESSION: Fluoroscopic guided placement of a needle into the LEFT hip joint without evidence for joint effusion on attempted aspiration. CPT II Codes: 6045F <Electronically signed by Kevin Fournier MD in [place]> 06/22/17 1642 Dictated By: Kevin Fournier MD Dictated Date/Time: 06/22/17 1642 Transcribed Date/Time: 06/22/17 1640 Copy to: CC:Jaiden Echevarria MD; Gabe Villeda MD; Дмитрий Rutledge MD; Chiki Chandler MD; Fabian Pack MD; Boris Dozier MD Imaging - [facility] Imaging - [place] [facility] [address] [address] ph ([phone]) ph ([phone]) ph ([phone]) 1 of 1 CTA CHEST Patient Name: DINA MENDOSA Medical Record#: [id number] Ordering Physician: aDnna Spence NP Acct.#: [id number] : 1970 Age: 47 Sex: F Location: [address] [place] [address] MEDICAL Exam Date: 06/20/17816 ADM Status: ADM IN Order Information: CTA CHEST Accession Number: [id number] CPT: 74679 INDICATION: Left groin pain and a positive d-dimer. Surgical history includes breast reduction. COMPARISON: Similar examination dated December 15, 2014 TECHNIQUE: Axial source images were acquired following the administration of 85 mL Omnipaque [address] angiographic technique. Coronal and sagittal reconstructed images were constructed and reviewed. FINDINGS: There are nonocclusive filling defects filling the right upper pulmonary artery , the interlobar artery and scattered in the segmental branches of the right middle and lower lobes. The thrombus extends to the distal most portion of the right main pulmonary artery. On the left there are scattered segmental arterial filling defects as well as a small filling defect at the distal most portion of the left pulmonary artery. There are small bilateral pleural effusions. There is consolidated density in the dependent portion of the bilateral lungs. Elsewhere the lungs appear adequately aerated. The heart is normal in size. There is no evidence of pericardial effusion. There is no evidence of aortic aneurysm or dissection. There is no mediastinal, hilar, or axillary lymphadenopathy. Bilaterally there are subcutaneous soft tissue densities involving the left greater than right breast. The largest is at the left breast measuring 2.3 x 5.0 cm in the axial plane. This is likely related to the patient's reported breast reduction surgery. Limited views of the upper abdomen show no abnormalities. IMPRESSION: 1. Positive for pulmonary embolism at the right greater than left mainstem pulmonary arteries as well as scattered lobar and segmental branches. 2. Subcutaneous densities overlying the left greater than right breast presumably related to the patient's breast reduction surgery. Findings were reported to Dr. Rutledge over the telephone at 0950 hours on June 20, 2017. <Electronically signed by Boris Dozier MD in OV> 06/20/17953 Dictated By: Boris Dozier MD Dictated Date/Time: 06/20/17953 Transcribed Date/Time: 06/20/17935 Copy to: CC:Jaiden Echevarria MD; Gabe Villeda MD; Danna Spence NP; Дмитрий Rutledge MD ; Chiki Chandler MD; Fabian 1 of 2 MRI PELVIS Patient Name: DINA MENDOSA Medical Record#: [id number] Ordering Physician: Fabian Pack MD Acct.#: [id number] : 1970 Age: 47 Sex: F Location: [address] [place] [address] MEDICAL Exam Date: 06/19/171939 ADM Status: ADM IN Order Information: MRI PELVIS W/O Accession Number: [id number] CPT: 34859 INDICATION: Left hip pain. COMPARISON: Comparison is made with a prior x-ray study of the left hip from June 17, 2017. Correlation is also made with a CT of the pelvis from June 17, 2017. TECHNIQUE: Axial and coronal T1 and T2-weighted images of the pelvis were obtained. FINDINGS: There is fluid tracking in the deep soft tissues and prominent muscle edema involving the left adductor muscles extending into the hamstring muscles. This is only partially visualized on this study and extends more inferior into the thigh. There are also smaller areas of edema in the right gluteus medius muscle and left gluteus medius and behzad muscles. No focal fluid collection or abscess is seen. The bones are normal in signal intensity. No joint effusion is seen. No significant arthritic change is noted. The visualized portion of the small bowel and colon appear nondistended. No free intraperitoneal fluid is present. The results of this examination were discussed with Dr. Atkins. IMPRESSION: THERE IS FLUID TRACKING IN THE DEEP SOFT TISSUES OF THE LEFT THIGH AND PROMINENT MUSCLE EDEMA IN THE LEFT THIGH. THERE IS ALSO MUSCLE EDEMA BILATERALLY WITHIN THE GLUTEAL MUSCLES. THIS IS A NONSPECIFIC FINDING ALTHOUGH MOST LIKELY SECONDARY TO AN INFECTIOUS OR INFLAMMATORY MYOSITIS. <Electronically signed by Francesco Hurst MD in OV> 06/19/172114 Dictated By: Francesco Hurst MD Dictated Date/Time: 06/19/172114 Transcribed Date/Time: 06/19/172055 Copy to: CC:Jaiden Echevarria MD; Gabe Villeda MD; Chiki Chandler MD; Fabian Pack MD Imaging - [facility] Imaging - [facility] Imaging - [facility] [id number] [place] [id number] [place] [address] ph ([phone]) ph ([phone]) ph ([phone]) 1 of 1 Assess/Plan/Problems-Billing Assessment: This is a 47 year old female with hx significant for MS on biologic therapy with recent breast reduction surgery that has inability to ambulate due to left hip and groin pain; 2/2 what appears to be hip abcess, myositis and now with DVT and bilateral PEs that had IR guided hip aspiration today. - Patient Problems (1) Left hip pain Current Visit: Yes Status: Acute Code(s): M25.552 - PAIN IN LEFT HIP SNOMED Code(s): 44489811 Comment: - Initial CT of hip, pelvis and lumbar spine negative - MRI with myositis and possible joint infection left hip- - IR today for left hip aspiration, per report, does not appear to be infected - Ortho and ID following - Follow cultures remain negative , WBCs nl, afebrile - Pain control - PT, ambulate as tolerated - Appreciate recs from all disciplines (2) Pulmonary emboli Current Visit: Yes Status: Acute Code(s): I26.99 - OTHER PULMONARY EMBOLISM WITHOUT ACUTE COR PULMONALE SNOMED Code(s): 76227444 Comment: - Per CTA chest 06/20 bilateral, 2/2 left calf DVT - SOB improved, no respiratory distress noted - Xarelto 15mg BID started 06/19 will need to transition to maintenance dose after 21 days (decrease to 20mg daily on july 10) - Respiratory status stable (3) Status post breast reduction Current Visit: Yes Status: Acute Code(s): Z98.890 - OTHER SPECIFIED POSTPROCEDURAL STATES SNOMED Code(s): 946929174 Comment: - Followed by Dr. Echevarria consult appreciated - local wound care- dressing changes and claudine wrap (4) Surgical wound infection Current Visit: Yes Status: Acute Code(s): T81.4XXA - INFECTION FOLLOWING A PROCEDURE, INITIAL ENCOUNTER SNOMED Code(s): 20820024 Comment: - Improvement in surgical wound infection - Dr. Echevarria following, please see note/recs - Continue local wound care per plastics with soap and water cleanse, bactroban , ABD and CLAUDINE 2x daily with continued improvement (5) Asthma Current Visit: No Status: Acute Code(s): J45.909 - UNSPECIFIED ASTHMA, UNCOMPLICATED SNOMED Code(s): 433911003 Comment: No acute exacerbation (6) H/O multiple sclerosis Current Visit: No Status: Chronic Code(s): Z86.69 - PERSONAL HISTORY OF DIS OF THE NERVOUS SYS AND SENSE ORGANS SNOMED Code(s): 005981276 Comment: - At baseline, stable - DC tecfidera given current infectious myositis and PEs (7) DNR (do not resuscitate) Current Visit: No Status: Acute (8) DVT prophylaxis Current Visit: No Status: Acute Code(s): XRW1422 - SNOMED Code(s): 754976659 Comment: xeralto (9) Transaminitis Current Visit: Yes Status: Acute Code(s): R74.0 - NONSPEC ELEV OF LEVELS OF TRANSAMNS & LACTIC ACID DEHYDRGNSE SNOMED Code(s): 306362187 Comment: - likely 2/2 tecfidera which is being held now - Monitor LFTs Status and Disposition: Continue inpatient care and close monitoring. Recommend PT eval and poss acute rehab at DC when clear by ID and ortho.
--- NOTE | 2017-06-23 17:43 | PN ---
Progress Note - Progress Note Date of Service: 06/23/17 SOAP: Subjective: CC: leg pain HPI: 47 year old woman with recent breast reduction (BL), now with DTV/PE and left thigh/groin pain; a little better since she's been here. Up to chair today which for the most part was pain free. Pain is in her groin and lateral upper leg when she flexes knee/hip. No fever, rash, or diarrhea. Objective: Vital Signs Temp 36.9 C 06/23/17 11:01 Pulse 78 06/23/17 11:01 Resp 16 06/23/17 14:39 BP 117/62 06/23/17 11:01 Pulse Ox 94 06/23/17 11:01 Intake & Output 06/22/17 06/23/17 06/23/17 18:59 06:59 18:59 Intake Total 1581 1265 2017 Balance 1581 1265 2017 Intake: IV Fluids 622 1093 ABX - VANCOMYCIN 622 NS (0.9%) 1093 IVPB 289 265 525 ABX - VANCOMYCIN 289 265 525 Oral 670 1000 400 Other: Estimated Void Medium Medium Large # Bowel Movements 0 0 0 # Voids 1 1 2 Gen:awake, no distress HEENT:PERRL, MMM Heart:RRR no murmur Lungs:CTA BL Abd:+BS NTND soft Skin: no rash MSK: L lat prox thigh tender, negative log roll and no hip pain with passive hip flexion, int/ext rotation. Pain with active flexion. No crepitus or fluctuance. L spine tender Neuo: strength 5/5 quad/TA/gastroc BL and sensation intact to light tough in BL LE Laboratory Results - last 24 hr 06/22/17 18:42 Vancomycin Trough 19.7 Microbiology 06/19/17 21:23 Blood Venous Aerobic Blood Culture - Preliminary No Growth Day 3 06/19/17 21:23 Blood Venous Anaerobic Blood Culture - Preliminary No Growth Day 3 06/19/17 21:09 Blood Venous Aerobic Blood Culture - Preliminary No Growth Day 3 06/19/17 21:09 Blood Venous Anaerobic Blood Culture - Preliminary No Growth Day 3 06/18/17 10:42 Breast Left Gram Stain - Final 06/18/17 10:42 Breast Left Wound Culture - Final Normal Nadira 06/18/17 10:42 Breast Left Skin and Soft Tissue MRSA/MSSA (PCR - Final Mrsa Negative S.aureus Negative 06/18/17 10:42 Breast Left Gram Stain - Final 06/18/17 10:42 Breast Left Wound Culture - Final Normal Nadira Assessment: 1. L thigh pain with myositis on MRI, neg log roll and no pain with active flexion as well as no fluid aspirated today so less likely septic arthritis. More likely infectious myositis and fasciitis (not necrotizing); usually Staph or Strep. Mild improvement. 2. back pain MRI without contrast negative, epidural still a consideration 2. DVT/PE 3. Recent BL breast reduction 4. PCN allergy Plan: 1. continue vancomycin goal tr 15-20 and check CRP today, will add one from admission for an objective comparison. If CRP and her symptoms continue to improve will plan on 4 weeks vancomycin. 2. MRI T/L spine with contrast Discussed with Dr Pack and Karla Santillan [employer] who will obtain the MRI 35 minutes floor time >50% face to face discussing antibiotic plans
[2017-06-23] MEDS ORDERED: Gadoteridol* (CONTRAST) 279.3 MG/ML 10 ML IV ONE (20:13)
[2017-06-23] MEDS ORDERED: NS 0.9% 250 ML* 250 ML ONE (21:11)
--- NOTE | 2017-06-23 21:30 | RAD ---
Indication: Back pain. Assess for infection. History of MS. Comparison: October 17, 2013 MRI. Technique: [employer] 1.5 Shanae [id number] with GEM suite. Pre and postcontrast MRI thoracic spine. 19 mL ProHance administered IV. Report: Minimal increased T2 signal is noted at the T2, T3, and T4 levels of the thoracic spinal cord without significant interval change compared with the 2013 exam or enhancement on the postcontrast series consistent with nonacute demyelinating lesions given history of MS. No new lesions of the thoracic spinal cord evident. Normal bone marrow signal throughout the [id number]. Negative for fracture or focal osseous lesions. The disc spaces appear within normal limits for age throughout. Negative for central canal or foraminal stenosis at any level. Negative for paraspinal hematoma or other fluid collection or inflammatory process. IMPRESSION: 1. No evidence for osteomyelitis discitis of the thoracic spine. 2. Minimal increased T2 signal is noted at the T2, T3, and T4 levels of the thoracic spinal cord without significant interval change compared with the 2013 exam or enhancement on the postcontrast series consistent with nonacute demyelinating lesions given history of MS. No new lesions of the thoracic spinal cord evident.
--- NOTE | 2017-06-23 21:57 | RAD ---
Indication: Back and hip pain. Assess for infection. Comparison: June 19, 2017 routine noncontrast MRI of the lumbar sacral spine. Technique: [employer] 1.5 Shanae [id number] with GEM suite. Postcontrast sagittal and axial T1 fat sat series of the lumbar sacral spine. 19 mL ProHance contrast administered IV. Report: Negative for vertebral body, intervertebral disc, or suspicious perivertebral soft tissue enhancement. Negative for abnormal enhancement of the conus medullaris or cauda equina. Negative for significant acquired spinal stenosis at any level. IMPRESSION: Limited postcontrast MRI of the lumbar sacral spine without evidence for osteomyelitis discitis. Negative exam.
[2017-06-24] MEDS: NS 0.9% 1000 ML* 1,000 ML IV SCH (01:02)
[2017-06-24] MEDS: Omeprazole CAP* 20 MG PO SCH (05:14)
[2017-06-24 06:34] LABS: ABS Basophils 0 10^3/ul (0-0.2); ABS Eosinophils 0.2 10^3/ul (0-0.6); ABS Lymphocytes 0.7 10^3/ul (1.0-4.8); ABS Monocytes 0.8 10^3/ul (0-0.8); ABS Neutrophils 4.8 10^3/ul (1.5-7.7); ABS Nucleated RBC 0.03 10^3/ul; Eosinophil % 2.7 % (0-6); Hematocrit 28 % (35-47); Hemoglobin 9.5 g/dl (12.0-16.0); Lymphocyte % 10.9 % (25-47); Mean Corpuscular HGB Conc 34 g/dl (31-36); Mean Corpuscular Hemoglobin 30 pg (27-31); Mean Corpuscular Volume 88 fL (80-97); Mean Platelet Volume 8 um3 (7.4-10.4); Nucleated Red Blood Cells % 0.4; Platelet Count 315 10^3/ul (150-450); Red Blood Count 3.18 10^6/ul (4.0-5.4); Red Cell Distribution Width 16 % (10.5-15); White Blood Count 6.4 10^3/ul (3.5-10.8)
[2017-06-24 06:51] LABS: EGFR Non-African American 75.5 (>60)
[2017-06-24] MEDS: Vancomycin(*) 1,000 MG in NS 0.9% 250 ML* 250 ML IVPB SCH ×2 (08:15→20:16)
[2017-06-24] MEDS: Magnesium Hydroxide LIQ* 30 ML UDC PO SCH (09:56)
[2017-06-24] MEDS: CMCS: Vilazodone (NF) 40 MG TAB PO SCH (09:56)
[2017-06-24] MEDS: CMCS: Brexpiprazole (NF) 0.5 MG TAB PO SCH (09:56)
[2017-06-24] MEDS: Amantadine CAP* 100 MG PO SCH (09:57)
[2017-06-24] MEDS: Benzonatate CAP* 100 MG PO SCH ×2 (09:57→22:00)
[2017-06-24] MEDS: Baclofen TAB* 10 MG PO SCH ×2 (09:58→20:39)
[2017-06-24] MEDS: Polyethylene Glycol 3350* 17 GM PACKET PO SCH (09:58)
[2017-06-24] MEDS: Rivaroxaban TAB(*) 15 MG PO SCH ×2 (09:58→22:26)
[2017-06-24] MEDS: Oxybutynin TAB* 5 MG PO SCH ×2 (09:58→22:26)
[2017-06-24] MEDS: Morphine INJ* 2 MG/ML 1 ML SYRINGE (TWO MG - NEW SYRINGE VERSION) IV PRN (14:33)
--- NOTE | 2017-06-24 14:49 | PN ---
Progress Note - Progress Note Date of Service: 06/24/17 SOAP: Subjective: []Patient seen at bedside. She reports her cough is now constant. Her leg pain is still present but tolerable. Objective: [] General: Well appearing, NAD LLE: tenderness to palpation of left groin, left lateral upper leg and left lower back. No skin breakdown, no obvious deformity. Able to flex and extend at hip. Sensation intact throughout LLE. 2+ DP Vital Signs Temp 98.2 F 06/24/17 11:18 Pulse 85 06/24/17 11:18 Resp 16 06/24/17 14:33 BP 123/57 06/24/17 11:18 Pulse Ox 100 06/24/17 11:18 Intake & Output 06/23/17 06/24/17 06/24/17 18:59 06:59 18:59 Intake Total 2248 1370 440 Balance 2248 1370 440 Weight 202 lb Intake: IV Fluids 1093 520 NS (0.9%) 1093 520 IVPB 525 250 ABX - VANCOMYCIN 525 250 Oral 630 600 440 Other: Estimated Void Large Large Medium # Bowel Movements 0 0 0 # Voids 2 1 2 Laboratory Last Values WBC 6.4 10^3/ul (3.5-10.8) 06/24/17 06:11 RBC 3.18 10^6/ul (4.0-5.4) L 06/24/17 06:11 Hgb 9.5 g/dl (12.0-16.0) L 06/24/17 06:11 Hct 28 % (35-47) L 06/24/17 06:11 MCV 88 fL (80-97) 06/24/17 06:11 MCH 30 pg (27-31) 06/24/17 06:11 MCHC 34 g/dl (31-36) 06/24/17 06:11 RDW 16 % (10.5-15) H 06/24/17 06:11 Plt Count 315 10^3/ul (150-450) 06/24/17 06:11 MPV 8 um3 (7.4-10.4) 06/24/17 06:11 Neut % (Auto) 73.8 % (38-83) 06/24/17 06:11 Lymph % (Auto) 10.9 % (25-47) L 06/24/17 06:11 [place] % (Auto) 12.0 % (1-9) H 06/24/17 06:11 Eos % (Auto) 2.7 % (0-6) 06/24/17 06:11 Baso % (Auto) 0.6 % (0-2) 06/24/17 06:11 Absolute Neuts (auto) 4.8 10^3/ul (1.5-7.7) 06/24/17 06:11 Absolute Lymphs (auto) 0.7 10^3/ul (1.0-4.8) L 06/24/17 06:11 Absolute Monos (auto) 0.8 10^3/ul (0-0.8) 06/24/17 06:11 Absolute Eos (auto) 0.2 10^3/ul (0-0.6) 06/24/17 06:11 Absolute Basos (auto) 0 10^3/ul (0-0.2) 06/24/17 06:11 Absolute Nucleated RBC 0.03 10^3/ul 06/24/17 06:11 Nucleated RBC % 0.4 06/24/17 06:11 INR (Anticoag Therapy) 1.62 (0.77-1.02) H 06/22/17 13:41 Sodium 139 mmol/L (133-145) 06/24/17 06:11 Potassium 3.4 mmol/L (3.5-5.0) L 06/24/17 06:11 Chloride 109 mmol/L (101-111) 06/24/17 06:11 Carbon Dioxide 24 mmol/L (22-32) 06/24/17 06:11 Anion Gap 6 mmol/L (2-11) 06/24/17 06:11 BUN 6 mg/dL (6-24) 06/24/17 06:11 Creatinine 0.81 mg/dL (0.51-0.95) 06/24/17 06:11 Est GFR ( Amer) 97.1 (>60) 06/24/17 06:11 Est GFR (Non-Af Amer) 75.5 (>60) 06/24/17 06:11 BUN/Creatinine Ratio 7.4 (8-20) L 06/24/17 06:11 Glucose 106 mg/dL (70-100) H 06/24/17 06:11 Calcium 8.4 mg/dL (8.6-10.3) L 06/24/17 06:11 Total Bilirubin 0.30 mg/dL (0.2-1.0) 06/22/17 13:41 AST 37 U/L (13-39) 06/22/17 13:41 ALT 56 U/L (7-52) H 06/22/17 13:41 Alkaline Phosphatase 119 U/L (34-104) H 06/22/17 13:41 C-Reactive Protein 89.23 mg/L (< 5.00) H 06/22/17 18:42 Total Protein 6.1 g/dL (6.4-8.9) L 06/22/17 13:41 Albumin 3.0 g/dL (3.2-5.2) L 06/22/17 13:41 Globulin 3.1 g/dL (2-4) 06/22/17 13:41 Albumin/Globulin Ratio 1.0 (1-3) 06/22/17 13:41 Vancomycin Trough 19.7 mcg/mL 06/22/17 18:42 Assessment: []myositis of LLE Plan: []Per ID: continue vancomycin goal tr 15-20. MRI T/L spine with contrast
--- NOTE | 2017-06-24 16:41 | PN ---
Subjective Date of Service: 06/24/17 Interval History: Continues to c/o chest with coughing and deep breath unchanged , C/o left calf and thigh pain unchanged c/o lower back pain unchanged Denies N/V/D. denies abd pain, Denies shortness of breath. Mild left breast pain unchanged Family History: Unchanged from Admission Social History: Unchanged from Admission Past Medical History: Unchanged from Admission Objective Active Medications: Amantadine HCl (Symmetrel Cap*) 100 mg PO DAILY [facility] Last Admin: 06/24/17 09:57 Dose: 100 mg Baclofen (Lioresal Tab*) 10 mg PO BID [facility] Last Admin: 06/24/17 09:58 Dose: 10 mg Benzonatate (Tessalon Cap*) 100 mg PO BID [facility] Last Admin: 06/24/17 09:57 Dose: 100 mg Brexpiprazole (Rexulti 0.5 Mg Tab (Nf)) 2 mg PO DAILY [facility] Last Admin: 06/24/17 09:56 Dose: 2 mg Sodium Chloride (Ns 0.9% 1000 Ml*) 1,000 mls @ 75 mls/hr IV PER RATE [facility] Last Admin: 06/24/17 01:02 Dose: 75 mls/hr Vancomycin HCl 1,000 mg/ (Sodium Chloride) 250 mls @ 166.667 mls/hr IVPB Q12H [facility] Last Admin: 06/24/17 08:15 Dose: 166.667 mls/hr Magnesium Hydroxide (Milk Of Magnesia Liq*) 30 ml PO DAILY [facility] Last Admin: 06/24/17 09:56 Dose: Not Given Mupirocin (Bactroban 2 % Oint*) 1 applic TOPICAL BID [facility] Last Admin: 06/23/17 21:20 Dose: 1 applic Omeprazole (Prilosec Cap*) 20 mg PO DAILY@0600 [facility] Last Admin: 06/24/17 05:14 Dose: 20 mg Ondansetron HCl (Zofran Inj*) 4 mg IV Q6H PRN PRN Reason: NAUSEA Last Admin: 06/19/17 19:23 Dose: 4 mg Oxybutynin Chloride (Ditropan Tab*) 5 mg PO DAILY [facility] Last Admin: 06/24/17 09:58 Dose: 5 mg Oxybutynin Chloride (Ditropan Tab*) 7.5 mg PO BEDTIME [facility] Last Admin: 06/23/17 21:19 Dose: 7.5 mg Pharmacy Consult (Vancomycin Per Pharmacy*) 1 note FOLLOW UP . PRN PRN Reason: PER PROTOCOL Pharmacy Profile Note (Vancomycin Trough Check) 1 note FOLLOW UP 0800 ONE Stop: 06/25/17 08:01 Polyethylene Glycol/Electrolytes (Miralax*) 17 gm PO DAILY [facility] Last Admin: 06/24/17 09:58 Dose: Not Given Potassium Chloride (Klor Con Er Tab*) 40 meq PO ONCE ONE Stop: 06/24/17 16:33 Rivaroxaban (Xarelto(*)) 15 mg PO BID [facility] Last Admin: 06/24/17 09:58 Dose: 15 mg Vilazodone HCl (Viibryd (Nf)) 40 mg PO DAILY [facility] Last Admin: 06/24/17 09:56 Dose: 40 mg Vital Signs - 8 hr 06/24/17 06/24/17 11:18 14:33 Temperature 98.2 F Pulse Rate 85 Respiratory 16 16 Rate Blood Pressure 123/57 (mmHg) O2 Sat by Pulse 100 Oximetry Oxygen Devices in Use Now: Nasal Cannula Eyes: No Scleral Icterus Ears/Nose/Mouth/Throat: Clear Oropharnyx, Mucous Membranes Moist Neck: NL Appearance and Movements; NL JVP, Trachea Midline Respiratory: Symmetrical Chest Expansion and Respiratory Effort, Clear to Auscultation, - - diminished at the bases bilat Cardiovascular: NL Sounds; No Murmurs; No JVD, RRR, No Edema Abdominal: NL Sounds; No Tenderness; No Distention Extremities: No Clubbing, Cyanosis Skin: - - left breast with 2 small open areas at the surgical incision site, minimal amount of drainage noted Neurological: Alert and Oriented x 3 Nutrition: Taking PO's Result Diagrams: 06/25/17 05:30 06/25/17 05:30 Microbiology and Other Data: Microbiology 06/18/17 10:42 Skin and Soft Tissue MRSA/MSSA (PCR - Final Breast Left Mrsa Negative S.aureus Negative Gram Stain - Final 06/18/17 10:42 Gram Stain - Final Breast Left Diagnostic Imaging: LEFT HIP ASPIRATION REPORT Patient Name: DINA MENDOSA Medical Record#: [id number] Ordering Physician: Fabian Pack MD Acct.#: [id number] : 1970 Age: 47 Sex: F Location: [facility] - MEDICAL Exam Date: 06/22/17 1301 ADM Status: ADM IN Order Information: Aspiration/ Injection Hip L Accession Number: [id number] CPT: 44233 INDICATION: Clinical concern for septic LEFT hip. Joint aspiration requested. COMPARISON: June 19, 2017 MRI without evidence for LEFT hip joint effusion. Written informed consent obtained. Timeout performed. PROCEDURE: Routine aseptic skin prep and sterile draping of procedural field. Following infiltration of 4 mm 1% lidocaine a 20-gauge coaxial needle was advanced into the LEFT hip joint at the lateral margin of the femoral neck. No joint fluid obtained on aspiration. Intra-articular location of the needle confirmed with 0.5 mL Omnipaque 180 contrast injection which documents the joint capsule closely opposing the femoral neck without evidence for joint effusion. The needle was removed. Procedure well tolerated without immediate complication. 10 seconds fluoroscopy. IMPRESSION: Fluoroscopic guided placement of a needle into the LEFT hip joint without evidence for joint effusion on attempted aspiration. CPT II Codes: 6045F <Electronically signed by Kevin Fournier MD in [place]> 06/22/171641 Dictated By: Kevin Fournier MD Dictated Date/Time: 06/22/17 1642 Transcribed Date/Time: 06/22/17 1640 Copy to: CC:Jaiden Echevarria MD; Gabe Villeda MD; Дмитрий Rutledge MD; Chiki Chandler MD; Fabian Pack MD; Boris Dozier MD Imaging - [facility] - [facility] [address] [address] ph [phone]) ph [phone]) ph ([phone]) 1 of 1 CTA CHEST Patient Name: DINA MENDOSA Medical Record#: [id number] Ordering Physician: Danna Spence NP Acct.#: [id number] : 1970 Age: 47 Sex: F Location: [address] [place] [address] Exam Date: 06/20/17816 ADM Status: ADM IN Order Information: CTA CHEST Accession Number: [id number] CPT: 13996 INDICATION: Left groin pain and a positive d-dimer. Surgical history includes breast reduction. COMPARISON: Similar examination dated December 15, 2014 TECHNIQUE: Axial source images were acquired following the administration of 85 mL Omnipaque [address] angiographic technique. Coronal and sagittal reconstructed images were constructed and reviewed. FINDINGS: There are nonocclusive filling defects filling the right upper pulmonary artery , the interlobar artery and scattered in the segmental branches of the right middle and lower lobes. The thrombus extends to the distal most portion of the right main pulmonary artery. On the left there are scattered segmental arterial filling defects as well as a small filling defect at the distal most portion of the left pulmonary artery. There are small bilateral pleural effusions. There is consolidated density in the dependent portion of the bilateral lungs. Elsewhere the lungs appear adequately aerated. The heart is normal in size. There is no evidence of pericardial effusion. There is no evidence of aortic aneurysm or dissection. There is no mediastinal, hilar, or axillary lymphadenopathy. Bilaterally there are subcutaneous soft tissue densities involving the left greater than right breast. The largest is at the left breast measuring 2.3 x 5.0 cm in the axial plane. This is likely related to the patient's reported breast reduction surgery. Limited views of the upper abdomen show no abnormalities. IMPRESSION: 1. Positive for pulmonary embolism at the right greater than left mainstem pulmonary arteries as well as scattered lobar and segmental branches. 2. Subcutaneous densities overlying the left greater than right breast presumably related to the patient's breast reduction surgery. Findings were reported to Dr. Rutledge over the telephone at 0950 hours on June 20, 2017. <Electronically signed by Boris Dozier MD in OV> 06/20/17953 Dictated By: Boris Dozier MD Dictated Date/Time: 06/20/17953 Transcribed Date/Time: 06/20/17935 Copy to: CC:Jaiden Echevarria MD; Gabe Villeda MD; Danna Spence [employer]; Дмитрий Rutledge MD ; Chiki Chandler MD; Fabian 1 of 2 MRI PELVIS Patient Name: DINA MENDOSA Medical Record#: [id number] Ordering Physician: Fabian Pack MD Acct.#: [id number] : 1970 Age: 47 Sex: F Location: [address] [place] [address] MEDICAL Exam Date: 06/19/171939 ADM Status: ADM IN Order Information: MRI PELVIS W/O Accession Number: [id number] CPT: 71851 INDICATION: Left hip pain. COMPARISON: Comparison is made with a prior x-ray study of the left hip from June 17, 2017. Correlation is also made with a CT of the pelvis from June 17, 2017. TECHNIQUE: Axial and coronal T1 and T2-weighted images of the pelvis were obtained. FINDINGS: There is fluid tracking in the deep soft tissues and prominent muscle edema involving the left adductor muscles extending into the hamstring muscles. This is only partially visualized on this study and extends more inferior into the thigh. There are also smaller areas of edema in the right gluteus medius muscle and left gluteus medius and behzad muscles. No focal fluid collection or abscess is seen. The bones are normal in signal intensity. No joint effusion is seen. No significant arthritic change is noted. The visualized portion of the small bowel and colon appear nondistended. No free intraperitoneal fluid is present. The results of this examination were discussed with Dr. Atkins. IMPRESSION: THERE IS FLUID TRACKING IN THE DEEP SOFT TISSUES OF THE LEFT THIGH AND PROMINENT MUSCLE EDEMA IN THE LEFT THIGH. THERE IS ALSO MUSCLE EDEMA BILATERALLY WITHIN THE GLUTEAL MUSCLES. THIS IS A NONSPECIFIC FINDING ALTHOUGH MOST LIKELY SECONDARY TO AN INFECTIOUS OR INFLAMMATORY MYOSITIS. <Electronically signed by Francesco Hurst MD in OV> 06/19/172114 Dictated By: Francesco Hurst MD Dictated Date/Time: 06/19/172114 Transcribed Date/Time: 06/19/172055 Copy to: CC:Jaiden Echevarria MD; Gabe Villeda MD; Chiki Chandler MD; Fabian Pack MD Imaging - [facility] Imaging - [facility] Imaging - [facility] [address] [address] ph [phone]) ph [phone]) ph [phone]) 1 of 1 Assess/Plan/Problems-Billing Assessment: This is a 47 year old female with hx significant for MS on biologic therapy with recent breast reduction surgery that has inability to ambulate due to left hip and groin pain; 2/2 what appears to be hip abcess, myositis and now with DVT and bilateral PEs that had IR guided hip aspiration today. - Patient Problems (1) Left hip pain Current Visit: Yes Status: Acute Code(s): M25.552 - PAIN IN LEFT HIP SNOMED Code(s): 42538647 Comment: - Initial CT of hip, pelvis and lumbar spine negative - MRI with myositis and possible joint infection left hip- - IR today for left hip aspiration, per report, does not appear to be infected - Ortho and ID following ID recommending IV vancomycin for 14 days. - Follow cultures remain negative , WBCs nl, afebrile - Pain control - PT, ambulate as tolerated - Appreciate recs from all disciplines (2) Pulmonary emboli Current Visit: Yes Status: Acute Code(s): I26.99 - OTHER PULMONARY EMBOLISM WITHOUT ACUTE COR PULMONALE SNOMED Code(s): 23220535 Comment: - Per CTA chest 06/20 bilateral, 2/2 left calf DVT - SOB improved, no respiratory distress noted - Xarelto 15mg BID started 06/19 will need to transition to maintenance dose after 21 days (decrease to 20mg daily on july 10) - Respiratory status stable (3) Status post breast reduction Current Visit: Yes Status: Acute Code(s): Z98.890 - OTHER SPECIFIED POSTPROCEDURAL STATES SNOMED Code(s): 893635407 Comment: - Followed by Dr. Echevarria consult appreciated - local wound care- dressing changes and claudine wrap (4) Surgical wound infection Current Visit: Yes Status: Acute Code(s): T81.4XXA - INFECTION FOLLOWING A PROCEDURE, INITIAL ENCOUNTER SNOMED Code(s): 14719715 Comment: - Improvement in surgical wound infection - Dr. Echevarria following, please see note/recs - Continue local wound care per plastics with soap and water cleanse, bactroban , ABD and CLAUDINE 2x daily with continued improvement (5) Asthma Current Visit: No Status: Acute Code(s): J45.909 - UNSPECIFIED ASTHMA, UNCOMPLICATED SNOMED Code(s): 494277119 Comment: No acute exacerbation (6) H/O multiple sclerosis Current Visit: No Status: Chronic Code(s): Z86.69 - PERSONAL HISTORY OF DIS OF THE NERVOUS SYS AND SENSE ORGANS SNOMED Code(s): 245075251 Comment: - At baseline, stable - DC tecfidera given current infectious myositis and PEs (7) DNR (do not resuscitate) Current Visit: No Status: Acute (8) DVT prophylaxis Current Visit: No Status: Acute Code(s): [place]9027 - SNOMED Code(s): 222548252 Comment: xeralto (9) Transaminitis Current Visit: Yes Status: Acute Code(s): R74.0 - NONSPEC ELEV OF LEVELS OF TRANSAMNS & LACTIC ACID DEHYDRGNSE SNOMED Code(s): 435150983 Comment: - likely 2/2 tecfidera which is being held now - Monitor LFTs Status and Disposition: Continue inpatient care and close monitoring. Recommend PT eval and poss acute rehab at [facility] when clear by ID and ortho. PICC line for fpc antibiotic use
[2017-06-24] MEDS ORDERED: Potassium Chlor TAB* 20 MEQ TAB.ER PO ONE (17:00)
[2017-06-24] MEDS ORDERED: Acetaminophen TAB* 325 MG PO PRN (20:05)
[2017-06-24] MEDS ORDERED: Morphine INJ* 2 MG/ML 1 ML SYRINGE (TWO MG - NEW SYRINGE VERSION) IV PRN (20:05)
[2017-06-24] MEDS ORDERED: HYDROcodone/ACETAMIN 5-325 MG* 1 TAB PO PRN (20:07)
[2017-06-24] MEDS ORDERED: Acetaminophen TAB* 325 MG ONE (20:10)
[2017-06-24] MEDS: Mupirocin 2% OINT* TUBE TOPICAL SCH (22:00)
[2017-06-25] MEDS: Mupirocin 2% OINT* TUBE TOPICAL SCH ×2 (00:26→16:36)
[2017-06-25] MEDS: Omeprazole CAP* 20 MG PO SCH (05:21)
[2017-06-25 05:52] LABS: ABS Basophils 0 10^3/ul (0-0.2); ABS Eosinophils 0.2 10^3/ul (0-0.6); ABS Lymphocytes 0.7 10^3/ul (1.0-4.8); ABS Monocytes 0.7 10^3/ul (0-0.8); ABS Neutrophils 4.2 10^3/ul (1.5-7.7); ABS Nucleated RBC 0 10^3/ul; Eosinophil % 3.5 % (0-6); Hematocrit 28 % (35-47); Hemoglobin 9.5 g/dl (12.0-16.0); Lymphocyte % 12.1 % (25-47); Mean Corpuscular HGB Conc 35 g/dl (31-36); Mean Corpuscular Hemoglobin 30 pg (27-31); Mean Corpuscular Volume 88 fL (80-97); Mean Platelet Volume 8 um3 (7.4-10.4); Nucleated Red Blood Cells % 0; Platelet Count 321 10^3/ul (150-450); Red Blood Count 3.14 10^6/ul (4.0-5.4); Red Cell Distribution Width 16 % (10.5-15); White Blood Count 5.8 10^3/ul (3.5-10.8)
[2017-06-25 06:15] LABS: EGFR Non-African American 77.7 (>60)
[2017-06-25] MEDS: HYDROcodone/ACETAMIN 5-325 MG* 1 TAB PO PRN ×2 (07:31→16:33)
[2017-06-25] MEDS ORDERED: Vancomycin Trough Check NOTE FOLLOW UP ONE (08:00)
[2017-06-25 08:12] VITALS: BP 123/59
[2017-06-25] MEDS: Vancomycin(*) 1,000 MG in NS 0.9% 250 ML* 250 ML IVPB SCH (08:51)
[2017-06-25] MEDS: CMCS: Brexpiprazole (NF) 0.5 MG TAB PO SCH (08:55)
[2017-06-25] MEDS: Amantadine CAP* 100 MG PO SCH (08:55)
[2017-06-25] MEDS: Oxybutynin TAB* 5 MG PO SCH (08:56)
[2017-06-25] MEDS: Rivaroxaban TAB(*) 15 MG PO SCH (08:56)
[2017-06-25] MEDS: Benzonatate CAP* 100 MG PO SCH (08:56)
[2017-06-25] MEDS: Baclofen TAB* 10 MG PO SCH (08:56)
[2017-06-25] MEDS: Polyethylene Glycol 3350* 17 GM PACKET PO SCH (08:59)
[2017-06-25] MEDS: CMCS: Vilazodone (NF) 40 MG TAB PO SCH (08:59)
[2017-06-25] MEDS: Magnesium Hydroxide LIQ* 30 ML UDC PO SCH (08:59)
--- NOTE | 2017-06-25 12:50 | PN ---
Subjective Date of Service: 06/25/17 Interval History: states slight improvement in left thigh pain. denies left calf pain today. Continues to c/o chest with coughing and deep breath unchanged , c/o lower back pain unchanged Denies N/V/D. denies abd pain, Denies shortness of breath. Mild left breast pain unchanged Family History: Unchanged from Admission Social History: Unchanged from Admission Past Medical History: Unchanged from Admission Objective Active Medications: Acetaminophen (Tylenol Tab*) 650 mg PO Q4H PRN PRN Reason: FEVER/PAIN Hydrocodone Bitart/Acetaminophen ([place] 5-325 Tab*) 1 tab PO Q4H PRN PRN Reason: PAIN - MODERATE Last Admin: 06/25/17 07:31 Dose: 1 tab Amantadine HCl (Symmetrel Cap*) 100 mg PO DAILY ON LICENSE OF [facility] Last Admin: 06/25/17 08:55 Dose: 100 mg Baclofen (Lioresal Tab*) 10 mg PO BID ON LICENSE OF [facility] Last Admin: 06/25/17 08:56 Dose: 10 mg Benzonatate (Tessalon Cap*) 100 mg PO BID ON LICENSE OF [facility] Last Admin: 06/25/17 08:56 Dose: 100 mg Brexpiprazole (Rexulti 0.5 Mg Tab (Nf)) 2 mg PO DAILY ON LICENSE OF [facility] Last Admin: 06/25/17 08:55 Dose: 2 mg Heparin Sodium (Porcine) (Heparin Flush Picc/Ml/Cvc(*)) 1 - 3 ml FLUSH 0600, 1800 ON LICENSE OF [facility] PRN Reason: Protocol Last Admin: 06/25/17 05:21 Dose: 1 ml Vancomycin HCl 1,000 mg/ (Sodium Chloride) 250 mls @ 166.667 mls/hr IVPB Q12H ON LICENSE OF [facility] Last Admin: 06/25/17 08:51 Dose: 166.667 mls/hr Magnesium Hydroxide (Milk Of Magnesia Liq*) 30 ml PO DAILY ON LICENSE OF [facility] Last Admin: 06/25/17 08:59 Dose: Not Given Morphine Sulfate (Morphine Inj (Syringe)*) 2 mg IV Q4H PRN PRN Reason: PAIN - SEVERE Mupirocin (Bactroban 2 % Oint*) 1 applic TOPICAL BID ON LICENSE OF [facility] Last Admin: 06/25/17 00:26 Dose: Not Given Omeprazole (Prilosec Cap*) 20 mg PO DAILY@0600 ON LICENSE OF [facility] Last Admin: 06/25/17 05:21 Dose: 20 mg Ondansetron HCl (Zofran Inj*) 4 mg IV Q6H PRN PRN Reason: NAUSEA Last Admin: 06/19/17 19:23 Dose: 4 mg Oxybutynin Chloride (Ditropan Tab*) 5 mg PO DAILY ON LICENSE OF [facility] Last Admin: 06/25/17 08:56 Dose: 5 mg Oxybutynin Chloride (Ditropan Tab*) 7.5 mg PO BEDTIME ON LICENSE OF [facility] Last Admin: 06/24/17 22:26 Dose: 7.5 mg Pharmacy Consult (Vancomycin Per Pharmacy*) 1 note FOLLOW UP . PRN PRN Reason: PER PROTOCOL Polyethylene Glycol/Electrolytes (Miralax*) 17 gm PO DAILY ON LICENSE OF [facility] Last Admin: 06/25/17 08:59 Dose: Not Given Rivaroxaban (Xarelto(*)) 15 mg PO BID ON LICENSE OF [facility] Last Admin: 06/25/17 08:56 Dose: 15 mg Vilazodone HCl (Viibryd (Nf)) 40 mg PO DAILY ON LICENSE OF [facility] Last Admin: 06/25/17 08:59 Dose: 40 mg Vital Signs - 8 hr 06/25/17 06/25/17 06/25/17 07:31 08:00 08:09 Temperature 98.1 F Pulse Rate 68 Respiratory 16 16 16 Rate Blood Pressure 123/59 (mmHg) O2 Sat by Pulse 96 Oximetry 06/25/17 12:13 Temperature Pulse Rate Respiratory 16 Rate Blood Pressure (mmHg) O2 Sat by Pulse Oximetry Oxygen Devices in Use Now: None Appearance: up sitting in the chair appears comfortable, alert and oriented Eyes: No Scleral Icterus, PERRLA Ears/Nose/Mouth/Throat: Clear Oropharnyx, Mucous Membranes Moist Neck: NL Appearance and Movements; NL JVP, Trachea Midline Respiratory: Symmetrical Chest Expansion and Respiratory Effort, Clear to Auscultation, - - diminished in bilat bases Cardiovascular: NL Sounds; No Murmurs; No JVD, RRR, No Edema Abdominal: NL Sounds; No Tenderness; No Distention Extremities: No Edema, No Clubbing, Cyanosis Skin: - - left breast surgical wounds unchanged Neurological: Alert and Oriented x 3 Result Diagrams: 06/25/17 05:30 06/25/17 05:30 Microbiology and Other Data: Microbiology 06/18/17 10:42 Skin and Soft Tissue MRSA/MSSA (PCR - Final Breast Left Mrsa Negative S.aureus Negative Gram Stain - Final 06/18/17 10:42 Gram Stain - Final Breast Left Diagnostic Imaging: LEFT HIP ASPIRATION REPORT Patient Name: DINA MENDOSA Medical Record#: [id number] Ordering Physician: Fabian Pack MD Acct.#: [id number] : 1970 Age: 47 Sex: F Location: [address] [address] Exam Date: 06/22/17 1301 ADM Status: ADM IN Order Information: Aspiration/ Injection Hip L Accession Number: [id number] CPT: 07922 INDICATION: Clinical concern for septic LEFT hip. Joint aspiration requested. COMPARISON: June 19, 2017 MRI without evidence for LEFT hip joint effusion. Written informed consent obtained. Timeout performed. PROCEDURE: Routine aseptic skin prep and sterile draping of procedural field. Following infiltration of 4 mm 1% lidocaine a 20-gauge coaxial needle was advanced into the LEFT hip joint at the lateral margin of the femoral neck. No joint fluid obtained on aspiration. Intra-articular location of the needle confirmed with 0.5 mL Omnipaque 180 contrast injection which documents the joint capsule closely opposing the femoral neck without evidence for joint effusion. The needle was removed. Procedure well tolerated without immediate complication. 10 seconds fluoroscopy. IMPRESSION: Fluoroscopic guided placement of a needle into the LEFT hip joint without evidence for joint effusion on attempted aspiration. CPT II Codes: 6045F <Electronically signed by Kevin Fournier MD in OV> 06/22/17 1642 Dictated By: Kevin Fournier MD Dictated Date/Time: 06/22/17 1642 Transcribed Date/Time: 06/22/17 1640 Copy to: CC:Jaiden Echevarria MD; Gabe Villeda MD; Дмитрий Rutledge MD; Chiki Chandler MD; Fabian Pack MD; Boris Dozier MD Imaging - [facility] Imaging - [place] [facility] [address] [address] ([phone]) ph ([phone]) ph ([phone]) 1 of 1 CTA CHEST Patient Name: DINA MENDOSA Medical Record#: [id number] Ordering Physician: Danna Spence NP Acct.#: [id number] : 1970 Age: 47 Sex: F Location: [address] [place] [address] Exam Date: 06/20/17816 ADM Status: ADM IN Order Information: CTA CHEST Accession Number: [id number] CPT: 77498 INDICATION: Left groin pain and a positive d-dimer. Surgical history includes breast reduction. COMPARISON: Similar examination dated December 15, 2014 TECHNIQUE: Axial source images were acquired following the administration of 85 mL Omnipaque [address] angiographic technique. Coronal and sagittal reconstructed images were constructed and reviewed. FINDINGS: There are nonocclusive filling defects filling the right upper pulmonary artery , the interlobar artery and scattered in the segmental branches of the right middle and lower lobes. The thrombus extends to the distal most portion of the right main pulmonary artery. On the left there are scattered segmental arterial filling defects as well as a small filling defect at the distal most portion of the left pulmonary artery. There are small bilateral pleural effusions. There is consolidated density in the dependent portion of the bilateral lungs. Elsewhere the lungs appear adequately aerated. The heart is normal in size. There is no evidence of pericardial effusion. There is no evidence of aortic aneurysm or dissection. There is no mediastinal, hilar, or axillary lymphadenopathy. Bilaterally there are subcutaneous soft tissue densities involving the left greater than right breast. The largest is at the left breast measuring 2.3 x 5.0 cm in the axial plane. This is likely related to the patient's reported breast reduction surgery. Limited views of the upper abdomen show no abnormalities. IMPRESSION: 1. Positive for pulmonary embolism at the right greater than left mainstem pulmonary arteries as well as scattered lobar and segmental branches. 2. Subcutaneous densities overlying the left greater than right breast presumably related to the patient's breast reduction surgery. Findings were reported to Dr. Rutledge over the telephone at 0950 hours on June 20, 2017. <Electronically signed by Boris Dozier MD in OV> 06/20/17953 Dictated By: Boris Dozier MD Dictated Date/Time: 06/20/17953 Transcribed Date/Time: 06/20/17935 Copy to: CC:Jaiden Echevarria MD; Gabe Villeda MD; Danna Spence NP; Дмитрий Rutledge MD ; Chiki Chandler MD; Fabian 1 of 2 MRI PELVIS Patient Name: DINA MENDOSA Medical Record#: [id number] Ordering Physician: Fabian Pack MD Acct.#: [id number] : 1970 Age: 47 Sex: F Location: [address] [place] [address] MEDICAL Exam Date: 06/19/171939 ADM Status: ADM IN Order Information: MRI PELVIS W/O Accession Number: [id number] CPT: 52810 INDICATION: Left hip pain. COMPARISON: Comparison is made with a prior x-ray study of the left hip from June 17, 2017. Correlation is also made with a CT of the pelvis from June 17, 2017. TECHNIQUE: Axial and coronal T1 and T2-weighted images of the pelvis were obtained. FINDINGS: There is fluid tracking in the deep soft tissues and prominent muscle edema involving the left adductor muscles extending into the hamstring muscles. This is only partially visualized on this study and extends more inferior into the thigh. There are also smaller areas of edema in the right gluteus medius muscle and left gluteus medius and behzad muscles. No focal fluid collection or abscess is seen. The bones are normal in signal intensity. No joint effusion is seen. No significant arthritic change is noted. The visualized portion of the small bowel and colon appear nondistended. No free intraperitoneal fluid is present. The results of this examination were discussed with Dr. Atkins. IMPRESSION: THERE IS FLUID TRACKING IN THE DEEP SOFT TISSUES OF THE LEFT THIGH AND PROMINENT MUSCLE EDEMA IN THE LEFT THIGH. THERE IS ALSO MUSCLE EDEMA BILATERALLY WITHIN THE GLUTEAL MUSCLES. THIS IS A NONSPECIFIC FINDING ALTHOUGH MOST LIKELY SECONDARY TO AN INFECTIOUS OR INFLAMMATORY MYOSITIS. <Electronically signed by Francesco Hurst MD in OV> 06/19/172114 Dictated By: Francesco Hurst MD Dictated Date/Time: 06/19/172114 Transcribed Date/Time: 06/19/172055 Copy to: CC:Jaiden Echevarria MD; Gabe Villeda MD; Chiki Chandler MD; Fabian Pack MD Imaging - [facility] Imaging - [facility] Imaging - [facility] [address] [address] ph [phone]) ph ([phone]) ph ([phone]) 1 of 1 Assess/Plan/Problems-Billing Assessment: This is a 47 year old female with hx significant for MS on biologic therapy with recent breast reduction surgery that has inability to ambulate due to left hip and groin pain; myositis and now with DVT and bilateral PEs MRI with contrast of the t-spine and L-spine -neg for infection . - Patient Problems (1) Left hip pain Current Visit: Yes Status: Acute Code(s): M25.552 - PAIN IN LEFT HIP SNOMED Code(s): 28783810 Comment: - Initial CT of hip, pelvis and lumbar spine negative - MRI with myositis and possible joint infection left hip- - left hip aspiration, per report, does not appear to be infected MRI with contrast of the t-spine and L-spine Negative for infection - Ortho signed off ID following ID recommending IV vancomycin for total of 4 weeks. CBC, CMP,CRP and Vancomycin trough weekly report to Dr. Wells - Follow cultures remain negative , WBCs nl, afebrile - Pain control - PT, ambulate as tolerated - Appreciate recs from all disciplines (2) Pulmonary emboli Current Visit: Yes Status: Acute Code(s): I26.99 - OTHER PULMONARY EMBOLISM WITHOUT ACUTE COR PULMONALE SNOMED Code(s): 97951612 Comment: - Per CTA chest 06/20 bilateral, 2/2 left calf DVT - SOB improved, no respiratory distress noted - Xarelto 15mg BID started 06/19 will need to transition to maintenance dose after 21 days (decrease to 20mg daily on july 10) - Respiratory status stable (3) Status post breast reduction Current Visit: Yes Status: Acute Code(s): Z98.890 - OTHER SPECIFIED POSTPROCEDURAL STATES SNOMED Code(s): 755423893 Comment: - Followed by Dr. Echevarria consult appreciated - local wound care- dressing changes and claudine wrap (4) Surgical wound infection Current Visit: Yes Status: Acute Code(s): T81.4XXA - INFECTION FOLLOWING A PROCEDURE, INITIAL ENCOUNTER SNOMED Code(s): 48100711 Comment: - Improvement in surgical wound infection - Dr. Echevarria following, please see note/recs - Continue local wound care per plastics with soap and water cleanse, bactroban , ABD and CLAUDINE 2x daily with continued improvement (5) Asthma Current Visit: No Status: Acute Code(s): J45.909 - UNSPECIFIED ASTHMA, UNCOMPLICATED SNOMED Code(s): 312903401 Comment: No acute exacerbation (6) H/O multiple sclerosis Current Visit: No Status: Chronic Code(s): Z86.69 - PERSONAL HISTORY OF DIS OF THE NERVOUS SYS AND SENSE ORGANS SNOMED Code(s): 808447091 Comment: - At baseline, stable - DC tecfidera given current infectious myositis and PEs (7) DNR (do not resuscitate) Current Visit: No Status: Acute (8) DVT prophylaxis Current Visit: No Status: Acute Code(s): UFH7093 - SNOMED Code(s): 659507171 Comment: xeralto (9) Transaminitis Current Visit: Yes Status: Acute Code(s): R74.0 - NONSPEC ELEV OF LEVELS OF TRANSAMNS & LACTIC ACID DEHYDRGNSE SNOMED Code(s): 473315478 Comment: - likely 2/2 tecfidera which is being held now - Monitor LFTs Status and Disposition: Continue inpatient care and close monitoring. Recommend PT eval and poss acute rehab at [facility] when clear by ID . PICC line for termination clerk antibiotic use Points of Discussion: Discharge to [facility] O2 via MS as needed for Shortness of breath maintain O2 saturations of 92% Vancomycin mg IV daily for 18 days. Vancomycin trough CBC, CMP and CRP weekly results to Dr. Wells. Follow up with DR. Wells in 1-2 weeks. Continue local wound care per plastics with soap and water cleanse, bactroban, sterile gauze and CLAUDINE 2x daily Continue xeralto 15 mg BID for 21 days. Start xeralto maintenance dose of 20 mg daily on July 10. PT evaluate and treat OT evaluate and treat
--- NOTE | 2017-06-25 17:10 | DS ---
AMENDED REPORT NOW INCLUDES COSIGNER DESIGNATION - ESIGNED BEFORE ADJUSTMENTS CC: Dr. Barahona; Dr. Jamal Hardy; Dr. Echevarria * DATE OF ADMISSION: 06/17/2017. DATE OF DISCHARGE: 06/25/2017. PROVIDER: Karla Valencia NP. ATTENDING PHYSICIAN: Дмитрий Rutledge MD * (dictated by Karla Valencia NP) PRIMARY DIAGNOSES: 1. Infectious myositis. 2. DVT/PE. 3. Recent bilateral breast reduction with poor surgical incision healing. SECONDARY DIAGNOSES: 1. Multiple sclerosis. 2. History of pneumonia. 3. History of GERD. 4. Overactive bladder. 5. Depression. 6. urinary spasms 7. PTSD. STUDIES WHILE IN THE HOSPITAL: 1. 06/17/2017, hip and pelvis x-ray: Radiologist's impression: Limited left hip positioning demonstrates no definite fracture. Pelvic ring was intact. 2. 06/17/2017, CT lumbar spine: Impression: Mild degenerative spondylosis. No CT evidence for significant acquired spinal stenosis. 3. 06/17/2017, CT of the pelvis: Radiologist's impression: No evidence for acute finding. If the patient's symptoms persist, recommend outpatient MR imaging of the hip. 4. 06/19/2017, chest x-ray: Radiologist's impression: No active disease. There are no infiltrates, no pulmonary effusions. 5. 06/19/2017, venous Doppler: Impression: Occlusive thrombosis of the left profunda femoral vein with minimal extension into the distal common femoral vein without complete thrombosis of the common femoral vein. 6. 06/19/2017, lumbar spine MRI: Impression: Mild degenerative disk disease and facet osteoarthritis. 7. 06/19/2017, MRI of the pelvis: Impression: There is fluid tracking in the deep soft tissues of the left thigh and prominent muscle edema in the left thigh. There is also edema bilaterally within the gluteal muscles. This is a nonspecific finding, although most likely secondary to an infectious or inflammatory myositis. 8. 06/20/2017, CT of the chest: Impression: Positive for pulmonary embolism at the right greater than left mainstem pulmonary arteries as well as scattered lobar and segmental branches. Subcutaneous densities overlying the left greater than right breast, presumably related to the patient's breast reduction surgery. 9. 06/22/2017, she had a left hip aspiration. They were unable to obtain any fluid under fluoro. There was no effusion. No culture was sent. 06/23/2017, lumbar MRI with contrast: Impression: Limited postcontrast MRI of the lumbosacral spine without evidence for osteomyelitis diskitis. Negative exam. 06/23/2017, thoracic spine MRI: Radiologist's impression: (1) No evidence for osteomyelitis diskitis of the thoracic spine. (2) Minimal increased T2 signal is noted at the T2, T3, and T4 levels of the thoracic spinal cord without significant interval change compared with the 2014 exam or enhancement on the postcontrast series consistent with nonacute demyelinating lesions given history of MS. No new lesions of the thoracic spinal cord evident. NEW DISCHARGE MEDICATIONS: 1. Oxycodone/acetaminophen 5/325 one tablet every 4 hours as needed for pain, maximum daily dose of 6. 2. Vancomycin 1000 mg q.12 hours IV for 20 more days, last dose will be on . 3. Xarelto 15 mg p.o. b.i.d. until 07/10/2017 and then she will be on 20 mg p.o. daily. CONTINUED HOME MEDICATIONS: 1. Acetaminophen 650 mg p.o. q.4 hours prn pain or fever. 2. Symmetrel cap 100 mg p.o. daily. 3. Baclofen 10 mg p.o. b.i.d. 4. Rexulti 0.5 mg 2 mg p.o. daily. 5. Heparin flush of her PICC line q.12 hours. 6. Milk of Magnesia 30 ml p.o. daily. 7. Bactroban ointment to the left breast 2 times daily. 8. Omeprazole 20 mg p.o. daily. 9. Ditropan 7.5 mg at bedtime. 10. Oxybutynin 5 mg p.o. daily. 11. MiraLax p.o. daily as needed. 12. Viibryd 40 mg p.o. daily. 13. Multivitamin one p.o. daily. 14. Levothyroxine 75 mcg p.o. daily. HISTORY OF PRESENT ILLNESS AND HOSPITAL COURSE: Ms. Cisneros is a 47-year-old female who presented to the emergency room on 06/17/2017 with a history of MS. She was being treated by Dr. Barahona. She reports that she had bilateral breast reduction surgery on 05/26/2017. She had an uneventful postoperative course; however, she had noticed increasing left hip pain that began in the morning when she was trying to get out of her recliner. The patient states that she has been trying to sleep in the recliner since having the breast surgery and has been unable to lie flat secondary to incisional pain and some history of low back pain along with her baseline MS. She states that she has pain in her left groin and left hip and was unable to bear weight. Normally she walks with a walker secondary to her MS; however, she states that she was unable to bear any weight on the left side. She states that she has not had an flare with MS in a long time. She has not been on steroids in over a year. She was medically stabilized and cleared for her surgery earlier this month and has had no issues until this point. She reports no traumatic injuries or falls. No complications with her surgical procedure and otherwise had no issues. While in the emergency room, she had a CAT scan of her pelvis and left hip and also of her lower lumbar spine which showed no acute pathology. Bones looked like they were in good condition. Also, her laboratories were unremarkable. She did receive some pain medications in the emergency room that did relieve some of her pain, but she was still unable to ambulate, so she was admitted to the hospital for pain control. During her hospital stay, she continued to have left hip and left thigh pain. While in the hospital she had several imaging studies done and the MRI of her pelvis. Radiologist's impression from the MRI of the pelvis on 06/19/2017 showed there is fluid tracking in the deep soft tissues of the left thigh and prominent muscle edema in the left thigh; there is also muscle edema bilaterally within the gluteal muscles; this is a nonspecific finding, although most likely secondary to an infectious or inflammatory myositis. Dr. Hardy was consulted on June 20. His impression was that she had infectious myositis in the left thigh. She was also found to have a DVT in her left leg. She developed some shortness of breath, so a CTA of her chest was done which found that she had pulmonary emboli in both lungs. She was started on Xarelto 15 mg b.i.d. We started her on Vancomycin 1000 mg q.12 hours and have been trending her trough and dosing per pharmacy. She had MRI with contrast of her thoracic and lumbar spines which were essentially negative for any infectious process. She had the left hip aspiration which there was no effusion and no infection noted to be in the left hip. While she has been in the hospital, we have been trending lab work. She was hypokalemic yesterday and did received potassium supplements today her potassium level is 3.6. She is feeling better. She states that the left calf pain is gone. She also states that she no longer has shooting pains going into her left thigh. She does state that the left hip pain has improved. She continues to complain of chest discomfort with coughing and deep breaths but this has been unchanged throughout her stay. Ms. Cisneros is stable for discharge home today. Her vital signs are as follows: Temperature 98.1, pulse 68, respirations 16, O2 saturation on room air has been 98 percent, blood pressure 123/59. She does intermittently place oxygen on at 2 liters for comfort, but is able to maintain O2 saturations of 98 on room air. DISCHARGE PLAN: Ms. Cisneros will be discharged to [facility]. A report has been called to Josh Shepherd NP. In regards to her pulmonary emboli and DVT, she will continue on Xarelto 15 mg p.o. b.i.d. until July 10 when she will convert to 20 mg p.o. daily. As far as her infectious myositis, she will continue on Vancomycin 1000 mg IV q.12 hours. She will have a weekly CBC, CMP, CRP, and Vanco trough, which results need to go to Dr. Hardy. Pain management as needed. She also needs to have her left breast dressing changed. The wound needs to be cleansed with mild soap and water two times daily and Bactroban applied to the wounds two times daily, followed by dry sterile dressing and Fred wrap. ACTIVITY: As tolerated. I have recommended that she have PT and OT consult and evaluate for strength. FOLLOW-UP: The patient should follow-up with Dr. Hardy in two weeks. She needs to follow-up with her primary care provider in four to seven days. She should follow-up with her plastic surgeon, Dr. Echevarria in four to seven days. The patient has been instructed to return to the emergency room if she has any increased shortness of breath or change in her chest pain. This is a summarized report of a complex medical history and hospital stay, for further details please see the entire medical record. TIME SPENT: Time spent on this discharge was approximately 60 minutes, greater than half that time was spent with the patient discussing her discharge plans and instructions. CONDITION ON DISCHARGE: Stable. KARLA VALENCIA NP [id number]/[facility] #: [id number] SHIRA
== END 2017-06-25 17:40 | DRG 862 ==
LOC: ED 10:12 → INTOOBSV 13:58 → MED 13:58 → OBSVTOIN 06-18 15:00 → MED 06-20 15:02
PROVIDERS: ADMIT Internal Medicine; ATTEND Internal Medicine
PROC: 0SJB3ZZ Inspection of Left Hip Joint, Percutaneous Approach (ICD-10-PCS; 2017-06-22)
PROC: 02HV33Z Insertion of Infusion Device into Superior Vena Cava, Percutaneous Approach (ICD-10-PCS; principal; 2017-06-24)
DX: T81.4XXA Infection following a procedure, initial encounter (principal); I26.99 Other pulmonary embolism without acute cor pulmonale; M60.052 Infective myositis, left thigh; I82.412 Acute embolism and thrombosis of left femoral vein; G35 Multiple sclerosis; G43.909 Migraine, unspecified, not intractable, without status migrainosus; G47.30 Sleep apnea, unspecified; J45.909 Unspecified asthma, uncomplicated; K21.9 Gastro-esophageal reflux disease without esophagitis; M17.0 Bilateral primary osteoarthritis of knee; M19.041 Primary osteoarthritis, right hand; F41.9 Anxiety disorder, unspecified; F32.9 Major depressive disorder, single episode, unspecified; N32.81 Overactive bladder; F43.10 Post-traumatic stress disorder, unspecified; M47.9 Spondylosis, unspecified; R74.0 Nonspecific elevation of levels of transaminase and lactic acid dehydrogenase [LDH]; Z66 Do not resuscitate; Y65.8 Other specified misadventures during surgical and medical care; M51.36 Other intervertebral disc degeneration, lumbar region; Z91.030 Bee allergy status; Z88.0 Allergy status to penicillin; Z88.2 Allergy status to sulfonamides; Z88.8 Allergy status to other drugs, medicaments and biological substances; Z91.018 Allergy to other foods; Z91.5 Personal history of self-harm; Z83.3 Family history of diabetes mellitus; Z56.0 Unemployment, unspecified; Z91.19 Patient's noncompliance with other medical treatment and regimen; Z72.0 Tobacco use; Z90.13 Acquired absence of bilateral breasts and nipples; Z87.01 Personal history of pneumonia (recurrent); Y92.009 Unspecified place in unspecified non-institutional (private) residence as the place of occurrence of the external cause; Z79.01 Long term (current) use of anticoagulants
CPT/HCPCS: 20610; 36415; 71020; 71275; 72131; 72148; 72149; 72157; 72192; 72195; 77002; 80048; 80053; 80202; 83735; 85025; 85610; 86140; 87040; 87070; 87205; 87640; 87641; A9270-GY; A9579; G8978-GP-CL; G8979-GP-CI; G8980-GP-CL; J0690; J1644; J1885; J2270; J2405; J3370; Q9965; Q9967

== ENCOUNTER 2017-06-27 11:30 | Emergency (ER) | payer MEDICAID, MEDICARE ==
--- NOTE | 2017-06-27 13:27 | ED ---
Lower Extremity - HPI Summary HPI Summary: 47 female presents to ED BIBA from [facility] with complaints of returning left calf pain and swelling that began again today. Patient was released from [facility] [place] floor 2 days ago with diagnosis of DVT and PE. On xarelto. States pain had subsided at discharge two days ago however it has returned and she is uncomfortable. Is able to walk and bear weight even though it hurts. Denies any other complaints. No other new symptoms. Denies SOB, chest pain or trouble breathing. Taking medication appropriately. No new injury or trauma. States pain is in the lateral side of her left calf with associated edema. Painful to touch and with movement/walking. Still having her chronic left groin pain as she was experiencing prior to admission into hospital and complaint at first ED visit. - History of Current Complaint Chief Complaint: EDExtremityLower Stated Complaint: LEFT LEG PAIN Time Seen by Provider: 06/27/17 11:41 Hx Obtained From: Patient Mechanism Of Injury: Other - none Onset of Pain: Hours Onset/Duration: Days Severity Initially: Mild Severity Currently: Mild Pain Intensity: 6 Pain Scale Used: 0-10 Numeric Timing: Constant Location: Is Discrete @ - lateral left calf Character Of Pain: Sharp, Aching Associated Signs And Symptoms: Positive: Swelling Aggravating Factor(s): Standing, Ambulation, Other - touch Alleviating Factor(s): Rest, Nothing Able to Bear Weight: Yes - Allergies/Home Medications Allergies/Adverse Reactions: Allergies Allergy/AdvReac Type Severity Reaction Status Date / Time Bee Venom Allergy Severe See Comment Verified 06/27/17 11:40 Onion Allergy Severe See Comment Verified 06/27/17 11:40 Aspirin Allergy Intermediate Nausea Verified 06/27/17 11:40 Penicillins [PCN] Allergy Intermediate See Comment Verified 06/27/17 11:40 [place] Allergy Unknown See Comment Verified 06/27/17 11:40 Sulfa Drugs Allergy Unknown Unknown Verified 06/27/17 11:40 Reaction Details PMH/Surg Hx/FS Hx/Imm Hx Endocrine/Hematology History: Reports: Hx Thyroid Disease Denies: Hx Diabetes, Hx Anemia, Hx Unexplained Bleeding, Other Endocrine/ Hematological Disorders Cardiovascular History: Denies: Hx Aneurysm, Hx Angina, Hx Angioplasty, Hx Auto Implanted Cardiovert Defib, Hx Cardiac Arrest, Hx Cardiomegaly, Hx Congenital Heart Disease, Hx Congestive Heart Failure, Hx Coronary Artery Disease, Hx Deep Vein Thrombosis, Hx Embolism, Hx Hypercholesterolemia, Hx Hypotension, Hx Hypertension, Hx Pacemaker/ICD, Hx Peripheral Vascular Disease, Hx Rheumatic Fever, Hx Syncope, Hx Valvular Heart Disease, Other Cardiovascular Problems/Disorders Respiratory History: Reports: Hx Asthma - as a child, Hx Sleep Apnea - newly diagnosed Denies: Hx Chronic Bronchitis, Hx Chronic Obstructive Pulmonary Disease (COPD ), Hx Cystic Fibrosis, Hx Lung Cancer, Hx Pleural Effusion, Hx Pneumonia, Hx Pulmonary Edema, Hx Pulmonary Embolism, Hx Seasonal Allergies, Other Respiratory Problems/Disorders GI History: Reports: Hx Gastroesophageal Reflux Disease, Hx Ulcer Denies: Hx Gastrointestinal Bleed, Hx Hiatal Hernia History: Reports: Other Problems/Disorders - accidents; pt reports sometimes unable to make it to [facility] on time Denies: Hx Dialysis, Hx Kidney Stones, Hx Renal Disease Musculoskeletal History: Reports: Hx Arthritis - knees, right hand, Hx Back Problems, Other Musculoskeletal History - MS Denies: Hx Bursitis, Hx Congenital Bone Abnormalities, Hx Fibromyalgia, Hx Gout, Hx Orthopedic Injury, Hx Osteoporosis, Hx Scoliosis, Hx Tendonitis Sensory History: Reports: Hx Contacts or Glasses, Other Sensory Impairments - Numbness in feet Denies: Hx Cataracts, Hx Eye Injury, Hx Eye Prosthesis, Hx Glaucoma, Hx Legally Blind, Hx Macular Degeneration, Hx Vision Problem, Hx Deafness, Hx Hearing Aid, Hx Hearing Problem Opthamlomology History: Reports: Hx Contacts or Glasses, Other Sensory Impairments - Numbness in feet Denies: Hx Cataracts, Hx Eye Injury, Hx Eye Prosthesis, Hx Glaucoma, Hx Legally Blind, Hx Macular Degeneration, Hx Vision Problem Neurological History: Reports: Hx Headaches - at times, Hx Migraine - in the past, Hx Nerve Disease, Other Neuro Impairments/Disorders - MS Denies: Hx Dementia, Hx Developmental Delay, Hx Seizures, Hx Spinal Cord Injury, Hx Transient Ischemic Attacks (TIA) Psychiatric History: Reports: Hx Anxiety, Hx Depression, Hx Suicide Attempt, Hx Substance Abuse Denies: Hx Attention Deficit Hyperactivity Disorder, Hx Eating Disorder, Hx Panic Disorder, Hx Post Traumatic Stress Disorder, Hx Inpatient Treatment, Hx Community Mental Health Tx, Hx Schizophrenia, Hx Bipolar Disorder, Hx of Violent Episodes Against Others, Other Psychiatric Issues/Disorders - Cancer History Hx Chemotherapy: No Hx Radiation Therapy: No - Surgical History Surgery Procedure, Year, and Place: breast reduction Hx Anesthesia Reactions: No - Immunization History Date of Tetanus Vaccine: Unknown Date of Influenza Vaccine: Unk re: Fall 2014 Infectious Disease History: No Infectious Disease History: Denies: Hx Clostridium Difficile, Hx Hepatitis, Hx Human Immunodeficiency Virus (HIV), Hx of Known/Suspected MRSA, Hx Shingles, Hx Tuberculosis, Hx Known/ Suspected VRE, Hx Known/Suspected VRSA, History Other Infectious Disease, Traveled Outside the [place] in Last 30 Days - Family History Known Family History: Positive: Unknown, Diabetes Family History: FHx of spina bifida - Social History Alcohol Use: None 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 Hx Substance Use: No Substance Use Type: Reports: None Hx Tobacco Use: No Smoking Status (MU): Never Smoked Tobacco Type: Cigarettes Amount Used/How Often: 2 cigaretts/week Length of Time of Smoking/Using Tobacco: 2 months Have You Smoked in the Last Year: No Review of Systems Constitutional: Negative Cardiovascular: Negative Respiratory: Negative Positive: Arthralgia, Myalgia - left calf Positive: Other - swelling left LE Neurological: Negative All Other Systems Reviewed And Are Negative: Yes Physical Exam Triage Information Reviewed: Yes Vital Signs On Initial Exam: Initial Vitals Temp Pulse Resp BP Pulse Ox 96.5 F 79 15 109/44 100 06/27/17 11:36 06/27/17 11:36 06/27/17 11:36 06/27/17 11:36 06/27/17 11:36 Vital Signs Reviewed: Yes Appearance: Positive: Well-Appearing, No Pain Distress, Well-Nourished Skin: Positive: Warm, Skin Color Reflects Adequate Perfusion, Dry. Negative: Cold, Cyanosis @, Mass @, Erythema @ Eyes: Positive: Conjunctiva Clear ENT: Positive: Hearing grossly normal Neck: Positive: Supple, Nontender Respiratory/Lung Sounds: Positive: Clear to Auscultation, Breath Sounds Present. Negative: Rales, Rhonchi, Wheezes Cardiovascular: Positive: Normal, RRR, Pulses are Symmetrical in both Upper and Lower Extremities. Negative: Murmur, Rub Abdomen Description: Positive: Nontender, Soft Musculoskeletal: Positive: Normal, Strength/ROM Intact, Pain @ - on palpation and walking at left calf, lateral, Felicia Sign Left, Edema Left - pitting edema + 2. Negative: Limited @, Interruption @ Neurological: Positive: Normal, Sensory/Motor Intact, Alert, Oriented to Person Place, Time, CN Intact II-III, Reflexes Intact, NV Bundle Intact Distally, Normal Gait - walks slowly - [place] Coma Scale Coma Scale Total: 15 Diagnostics - Vital Signs Vital Signs Temp Pulse Resp BP Pulse Ox 06/27/17 11:36 96.5 F 79 15 109/44 100 - Laboratory Lab Statement: Any lab studies that have been ordered have been reviewed, and results considered in the medical decision making process. Lower Extremity Course/Dx - Course Course Of Treatment: patient presents with increased pain of left calf which was previously diagnosed as DVT and also PE's, discharged home from floor 2 days ago. At [facility]. States pain increased and returned today, Was gone since discharge two days ago. Is taking xarelto and norco. does not believe norco is helping much takes only 1 pill every 6ish hours. Denies ambulating frequently and does admit to sometimes not having her leg elevated. Due to previously diagnosed DVT in left leg and prior admission/treatment for DVT and PE no further imaging/workup appeared necessary. Pain was similar to previous pain that required admission. Spoke with Dr Chong and Dr Villeda hospitalist about patient who stated no further imaging and treatment appears to be necessary at this time. continue xarelto and follow up. increase pain medication. suggested taking 2 as needed for pain. elevation, edema devices and ambulation. aware of worsening signs and symptoms to watch out for. follow up. return if new or worsening symptoms. - Diagnoses Differential Diagnosis/HQI/PQRI: Positive: DVT, Other - lower extremity pain, left, edema LE Provider Diagnoses: Pain of left calf, DVT (deep venous thrombosis) - Physician Notifications Discussed Care Of Patient With: Dr Villeda Time Discussed With Above Provider: 13:50 Instructed by Provider To: Other - return to rehab and follow up appropriately, increase pain managemet Discharge - Discharge Plan Condition: Stable Disposition: HOME Patient Education Materials: Deep Venous Thrombosis (ED), Leg Edema (ED), Leg Pain (ED) Referrals: Kelley High MD [Primary Care Provider] - Additional Instructions: Continue taking medications as directed for your previously diagnosed DVT. Increase pain medication to 2 [place] pain pills as needed every 6 hours for increased pain (10mg/650mg). Do not hang legs over bed and be sure to elevate as much as possible. Ambulate and encourage moving/walking to help with blood flow and decrease edema , which can be contributing to your pain. Follow up with PCP. Any new or worsening symptoms please seek medical attention promptly, as we discussed. (increased pain, redness, increased swelling, SOB etc).
[2017-06-27] MEDS ORDERED: HYDROcodone/ACETAMIN 5-325 MG* 1 TAB PO ONE (13:56)
[2017-06-27 14:31] VITALS: BP 110/57
== END 2017-06-27 14:26 | disposition home or self-care (01) ==
LOC: ED 11:30
DX: I82.4Z2 Acute embolism and thrombosis of unspecified deep veins of left distal lower extremity (principal); Z86.711 Personal history of pulmonary embolism; Z87.891 Personal history of nicotine dependence; Z88.6 Allergy status to analgesic agent; Z88.0 Allergy status to penicillin; Z88.2 Allergy status to sulfonamides
CPT/HCPCS: 99282

== ENCOUNTER 2017-07-16 19:07 | Inpatient (IN) | payer MEDICAID, MEDICARE ==
[2017-07-16 20:39] LABS: Hematocrit 34 % (35-47); Hemoglobin 11.5 g/dl (12.0-16.0); Mean Corpuscular HGB Conc 34 g/dl (31-36); Mean Corpuscular Hemoglobin 29 pg (27-31); Mean Corpuscular Volume 86 fL (80-97); Mean Platelet Volume 8 um3 (7.4-10.4); Platelet Count 256 10^3/ul (150-450); Red Blood Count 3.95 10^6/ul (4.0-5.4); Red Cell Distribution Width 15 % (10.5-15); White Blood Count 2.1 10^3/ul (3.5-10.8)
[2017-07-16] MEDS ORDERED: Iohexol 300* (CONTRAST) 10 ML SDV IV ONE (20:44)
[2017-07-16 20:52] LABS: INR 2.24 (0.77-1.02)
[2017-07-16 20:54] LABS: EGFR Non-African American 69.5 (>60)
[2017-07-16 21:09] LABS: ABS Basophils 0.1 10^3/ul (0-0.2); ABS Eosinophils 0.3 10^3/ul (0-0.6); ABS Lymphocytes 0.7 10^3/ul (1.0-4.8); ABS Monocytes 0.5 10^3/ul (0-0.8); ABS Nucleated RBC 0 10^3/ul; Eosinophil % 12.1 % (0-6); Lymphocyte % 33.5 % (25-47); Nucleated Red Blood Cells % 0.3
[2017-07-16 21:35] LABS: ABS Neutrophils 0.6 10^3/ul (1.5-7.7)
--- NOTE | 2017-07-16 21:41 | RAD ---
Indication: Jaw pain. Contrast: Administered 75.1 ml of OMNIPAQUE 300 mg/ml CT of the facial bones was obtained in the axial plane after intravenous contrast administration. Sagittal and coronal reconstructed images were obtained. The skull base and brainstem are otherwise unremarkable. Mastoid air cells are well aerated. Paranasal sinuses are clear. No evidence of fracture of the mandible is noted. The temporomandibular joints are grossly unremarkable. There is slight enlargement of the left masseter muscle relative to the right with some infiltration of fat. Underlying edema and infection is not excluded and clinical correlation is suggested. No abscess is noted. Submandibular gland is otherwise unremarkable. Scattered small lymph nodes are present. The submandibular glands are otherwise unremarkable. IMPRESSION: Mild enlargement of the left masseter muscle with infiltration of fat. Clinical correlation to exclude an underlying infection is suggested. No definite abscess collection is noted. No fracture of the mandible is noted.
[2017-07-16] MEDS ORDERED: Clindamycin 600 MG IVPREMIX(* 600 MG/50 ML SDV IV ONE (22:06)
[2017-07-16 22:34] LABS: Urine Appearance Cloudy; Urine Blood 1+ (Negative); Urine Color Yellow; Urine Ketones Trace (Negative); Urine Protein Negative (Negative); Urine Specific Gravity 1.019 (1.010-1.030); Urine Urobilinogen Negative (Negative)
[2017-07-16] MEDS ORDERED: Acetaminophen TAB* 325 MG PO PRN ×2 (23:30→23:33)
[2017-07-17] MEDS: oxyCODONE/Acetamin 5/325 MG* TAB PO PRN ×4 (01:18→19:39)
--- NOTE | 2017-07-17 01:38 | HP ---
CC: Jamal Hardy MD; Shelley Barahona MD * ADMISSION HISTORY AND PHYSICAL: DATE OF ADMISSION: 07/16/17 PRIMARY CARE PROVIDER: Dr. Chandler. HEALTHCARE PROXY: Meme Escobar. CODE STATUS: DNR. CHIEF COMPLAINT: Left jaw pain. SOURCE OF INFORMATION: History obtained from patient. RELIABILITY: Good. HISTORY OF PRESENT ILLNESS: This is a 47-year-old female, recent hospital stay [place] [facility] [place]17 after presenting with left hip pain, found with fluid tracking in the left thigh as well as edema bilaterally in her gluteal muscles thought to represent infectious myositis with the hospital stay complicated by pulmonary embolism, discharged to [facility] where she was noted that the pain in her hip remained significant at first, but has gradually improved. Now she only has pain if she sits too long in a hard chair. Her hospital stay was punctuated by severe back pain as well with MRIs negative for acute pathology and she notes her back pain has improved, although it is still present if she lies flat. After her discharge, she noted that she had persistent left leg swelling. They sought second opinion at [facility] for its etiology where they diagnosed her with a DVT considered to be rivaroxaban failure and transitioned her to Coumadin. It is unknown if they knew at that time she had occlusive thrombus of her left profunda femoral vein prior to her initiation of Xarelto. However, the remainder of her course had been unremarkable and the day prior to presentation, she woke up and noticed she could not open her mouth and she had pain in her left jaw all the time worse with attempted mastication. The patient had decreased appetite, but no fevers, chills, nausea, vomiting, diarrhea. She noted her face felt red. She has had an intermittent headache. No vision changes. Has noted increased severity in the pain of her knees, but no other complaints. She presented to the emergency room where a CT maxillofacial imaging indicated mild enlargement of her left masseter muscle with infiltration of the fat without abscess. Additionally, she was noted to be neutropenic with an absolute neutrophil count of 600. When seen by this author, pain on her left jaw persisted . Otherwise, she had no complaints. PAST MEDICAL HISTORY: 1. GERD. 2. Bladder spasm. 3. Overactive bladder. 4. Multiple sclerosis, recently restarted on Tecfidera on 07/13/17. 5. Depression. 6. PTSD. 7. Recent breast reduction, 05/2017. 8. Dental surgery in 2010 and 2011. 9. Attempted overdoses in the past. 10. Suicidal ideation. CURRENT MEDICATIONS: Include, 1. Coumadin 4 mg daily. 2. Tecfidera 240 mg for 7 days starting on the . 3. Concerta 36 mg daily. 4. Ferrous sulfate 325 mg daily. 5. Symmetrel 100 mg daily. 6. Baclofen 10 mg twice daily. 7. Rexulti. 8. Milk of magnesia 20 mg daily. 9. Bactroban ointment to the left breast twice daily. 10. Omeprazole 20 mg daily. 11. Ditropan 7.5 mg at bedtime. 12. Oxybutynin 5 mg daily. 13. MiraLAX daily as needed. 14. Viibryd 40 mg daily. 15. Multivitamin 1 tab daily. 16. Levothyroxine 75 mcg daily. 17. Vancomycin, had been continued after discharge with the last dose scheduled for 07/15/17. ALLERGIES: BEE VENOM, ONIONS, ASPIRIN, PENICILLIN, CITRUS AND SULFA drugs. FAMILY HISTORY: Mother with diabetes. SOCIAL HISTORY: Remote alcohol abuse, sober for 23 years, currently on disability, currently living at [facility]. REVIEW OF SYSTEMS: As per HPI. Otherwise all other systems negative. PHYSICAL EXAMINATION VITAL SIGNS: In the emergency room, T-max 98 Fahrenheit, 121/67, heart rate 75 , respiratory rate 20, O2 sat 97% on room air. LABORATORY DATA: Labs reviewed. White blood cell count is 2.1, 26% neutrophils, hemoglobin 11.5, platelets 256,000. INR 2.2, lactic acid 0.7, AST 12, ALT 8, alk phos 90. DIAGNOSTIC DATA: Reviewed. CT of face as indicated above. Mild enlargement of the left masseter muscle with infiltration of fat. Temporal and mandibular joints are grossly unremarkable. No abscess is noted. ASSESSMENT AND PLAN: This is a 47-year-old female, recent hospital stay and discharged at the beginning of this month with suspected left extremity and gluteal infectious myositis, although at that time no organism was identified. She had a joint aspiration, although no clear indication that she had an attempt to aspirate the fluid tracking along the muscle or a muscle biopsy. She has been maintained on vancomycin with improvement in the pain and now has a similar presentation with muscle edema of the left masseter associated with neutropenia. 1. Myositis. Infectious versus inflammatory. Vancomycin was to terminate yesterday and will transition to clindamycin given neutropenia. I place a rheumatology consultation as autoimmune etiologies are in the differential. At this point it looks like a polymyositis, unclear underlying etiology. We will place order for transthoracic echocardiogram, although infective endocarditis is not high on my list. Check blood cultures. Check LDH as well as total CK. None of these drugs appear to be related to the possibility of myositis. 2. Neutropenia. Unclear if related to findings in her left jaw as well as her gluteal muscles. I suspect medication related, either vancomycin, potentially Tecfidera since its recent administration. However, vancomycin has been shown to cause a granulocytosis which is reversible. Stop vancomycin and start clindamycin. Trend CBC. Neutropenic diet and precautions. 3. Deep venous thrombosis and pulmonary embolism. Continue Coumadin. Check INR tomorrow. 4. Multiple sclerosis. Continue Tecfidera. 5. Bladder spasm. Continue oxybutynin. 6. Code status DNR. MOLST updated and placed in chart. [id number] #: [id number] [facility]
[2017-07-17] MEDS: Levothyroxine TAB* 75 MCG TAB PO SCH (05:34)
--- NOTE | 2017-07-17 05:51 | ED ---
Shukri Baez Angela, scribed for Arnaldo Allen MD on 07/16/17 at 2013 . Complex/Multi-Sys Presentation - HPI Summary HPI Summary: This pt is a 47 y/o female presenting to [facility] via EMS from [facility] for jaw pain since last night. Pt reports she is in [facility] for rehab. 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 Pt currently has a PICC line on E and receives IV Vancomycin as an outpatient. She states she is able to walk now and her left hip is improving. She states her jaw pain feels like the pain in her left hip. Pt notes she can't open her mouth. Denies fever, congestion, recent cold symptoms. Pt had blood work today ordered by [facility]. Pt also has history of MS, and her typical symptoms are weakness in her legs. Pt is currently on Coumadin. - History Of Current Complaint Chief Complaint: EDGeneral Time Seen by Provider: 07/16/17 19:57 Hx Obtained From: Patient Onset/Duration: Lasting Days - 1, Still Present Timing: Days - 1 Severity Initially: Severe Location: Pain At: - jaw Aggravating Factor(s): nothing Alleviating Factor(s): nothing Associated Signs And Symptoms: Positive: Other - POS: jaw pain. NEG: congestion , cold symptoms. Negative: Fever - Allergies/Home Medications Allergies/Adverse Reactions: Allergies Allergy/AdvReac Type Severity Reaction Status Date / Time Bee Venom Allergy Severe See Comment Verified 07/16/17 23:52 Onion Allergy Severe See Comment Verified 07/16/17 23:52 Aspirin Allergy Intermediate Nausea Verified 07/16/17 23:52 Penicillins [PCN] Allergy Intermediate See Comment Verified 07/16/17 23:52 [place] Allergy Unknown See Comment Verified 07/16/17 23:52 Sulfa Drugs Allergy Unknown Unknown Verified 07/16/17 23:52 Reaction Details PMH/Surg Hx/FS Hx/Imm Hx Endocrine/Hematology History: Reports: Hx Thyroid Disease Denies: Hx Diabetes, Hx Anemia, Hx Unexplained Bleeding, Other Endocrine/ Hematological Disorders Cardiovascular History: Denies: Hx Aneurysm, Hx Angina, Hx Angioplasty, Hx Auto Implanted Cardiovert Defib, Hx Cardiac Arrest, Hx Cardiomegaly, Hx Congenital Heart Disease, Hx Congestive Heart Failure, Hx Coronary Artery Disease, Hx Deep Vein Thrombosis, Hx Embolism, Hx Hypercholesterolemia, Hx Hypotension, Hx Hypertension, Hx Pacemaker/ICD, Hx Peripheral Vascular Disease, Hx Rheumatic Fever, Hx Syncope, Hx Valvular Heart Disease, Other Cardiovascular Problems/Disorders Respiratory History: Reports: Hx Asthma - as a child, Hx Sleep Apnea - newly diagnosed Denies: Hx Chronic Bronchitis, Hx Chronic Obstructive Pulmonary Disease (COPD ), Hx Cystic Fibrosis, Hx Lung Cancer, Hx Pleural Effusion, Hx Pneumonia, Hx Pulmonary Edema, Hx Pulmonary Embolism, Hx Seasonal Allergies, Other Respiratory Problems/Disorders GI History: Reports: Hx Gastroesophageal Reflux Disease, Hx Ulcer Denies: Hx Gastrointestinal Bleed, Hx Hiatal Hernia History: Reports: Other Problems/Disorders - accidents; pt reports sometimes unable to make it to [facility] on time Denies: Hx Dialysis, Hx Kidney Stones, Hx Renal Disease Musculoskeletal History: Reports: Hx Arthritis - knees, right hand, Hx Back Problems, Other Musculoskeletal History - MS Denies: Hx Bursitis, Hx Congenital Bone Abnormalities, Hx Fibromyalgia, Hx Gout, Hx Orthopedic Injury, Hx Osteoporosis, Hx Scoliosis, Hx Tendonitis Sensory History: Reports: Hx Contacts or Glasses, Other Sensory Impairments - Numbness in feet Denies: Hx Cataracts, Hx Eye Injury, Hx Eye Prosthesis, Hx Glaucoma, Hx Legally Blind, Hx Macular Degeneration, Hx Vision Problem, Hx Deafness, Hx Hearing Aid, Hx Hearing Problem Opthamlomology History: Reports: Hx Contacts or Glasses, Other Sensory Impairments - Numbness in feet Denies: Hx Cataracts, Hx Eye Injury, Hx Eye Prosthesis, Hx Glaucoma, Hx Legally Blind, Hx Macular Degeneration, Hx Vision Problem Neurological History: Reports: Hx Headaches - at times, Hx Migraine - in the past, Hx Nerve Disease, Other Neuro Impairments/Disorders - MS Denies: Hx Dementia, Hx Developmental Delay, Hx Seizures, Hx Spinal Cord Injury, Hx Transient Ischemic Attacks (TIA) Psychiatric History: Reports: Hx Anxiety, Hx Depression, Hx Suicide Attempt, Hx Substance Abuse Denies: Hx Attention Deficit Hyperactivity Disorder, Hx Eating Disorder, Hx Panic Disorder, Hx Post Traumatic Stress Disorder, Hx Inpatient Treatment, Hx Community Mental Health Tx, Hx Schizophrenia, Hx Bipolar Disorder, Hx of Violent Episodes Against Others, Other Psychiatric Issues/Disorders - Cancer History Hx Chemotherapy: No Hx Radiation Therapy: No - Surgical History Surgery Procedure, Year, and Place: breast reduction Hx Anesthesia Reactions: No - Immunization History Date of Tetanus Vaccine: Unknown Date of Influenza Vaccine: Unk re: Fall 2014 Infectious Disease History: No Infectious Disease History: Denies: Hx Clostridium Difficile, Hx Hepatitis, Hx Human Immunodeficiency Virus (HIV), Hx of Known/Suspected MRSA, Hx Shingles, Hx Tuberculosis, Hx Known/ Suspected VRE, Hx Known/Suspected VRSA, History Other Infectious Disease, Traveled Outside the [place] in Last 30 Days - Family History Known Family History: Positive: Diabetes Family History: FHx of spina bifida - Social History Alcohol Use: None 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 Hx Substance Use: No Substance Use Type: Reports: None Hx Tobacco Use: No Smoking Status (MU): Never Smoked Tobacco Type: Cigarettes Amount Used/How Often: 2 cigaretts/week Length of Time of Smoking/Using Tobacco: 2 months Have You Smoked in the Last Year: No Review of Systems Negative: Fever, Chills Eyes: Negative ENT: Other - Jaw pain Negative: Other - cold symptoms, congestion Respiratory: Negative All Other Systems Reviewed And Are Negative: Yes Physical Exam - Summary Physical Exam Summary: Appearance: Well appearing, moderate pain distress Skin: warm, dry, reflects adequate perfusion Head/face: normal Eyes: EOMI, LUIS ENT: No buccal mucosal lesions. Throat is clear. Not wam to touch. Pain in the TMJ area, angle of the jaw in just in front of her left tragus. Mild moderate trismus. No crepitance. Neck: supple, non-tender Respiratory: CTA, breath sounds present Cardiovascular: RRR, pulses symmetrical Abdomen: non-tender, soft Bowel: present Musculoskeletal: normal, strength/ROM intact Neuro: normal, sensory motor intact, A&Ox3 Triage Information Reviewed: Yes Vital Signs On Initial Exam: Initial Vitals Temp Pulse Resp BP Pulse Ox 98.0 F 73 20 130/73 97 07/16/17 19:19 07/16/17 19:19 07/16/17 19:19 07/16/17 19:19 07/16/17 19:19 Vital Signs Reviewed: Yes Diagnostics - Vital Signs Vital Signs Temp Pulse Resp BP Pulse Ox 07/16/17 19:19 98.0 F 73 20 130/73 97 - Laboratory Lab Results: Lab Results 07/16/17 07/16/17 07/16/17 Range/Units 20:16 20:16 20:16 WBC 2.1 L (3.5-10.8) 10^3/ul RBC 3.95 L (4.0-5.4) 10^6/ul Hgb 11.5 L (12.0-16.0) g/dl Hct 34 L (35-47) % MCV 86 (80-97) fL MCH 29 (27-31) pg MCHC 34 (31-36) g/dl RDW 15 (10.5-15) % Plt Count 256 (150-450) 10^3/ul MPV 8 (7.4-10.4) um3 Neut % (Auto) 26.6 L (38-83) % Lymph % (Auto) 33.5 (25-47) % Story % (Auto) 24.4 H (1-9) % Eos % (Auto) 12.1 H (0-6) % Baso % (Auto) 3.4 H (0-2) % Absolute Neuts (auto) 0.6 L* (1.5-7.7) 10^3/ul Absolute Lymphs (auto) 0.7 L (1.0-4.8) 10^3/ul Absolute Monos (auto) 0.5 (0-0.8) 10^3/ul Absolute Eos (auto) 0.3 (0-0.6) 10^3/ul Absolute Basos (auto) 0.1 (0-0.2) 10^3/ul Absolute Nucleated RBC 0 10^3/ul Nucleated RBC % 0.3 INR (Anticoag Therapy) 2.24 H (0.77-1.02) Sodium 137 (133-145) mmol/L Potassium 3.3 L (3.5-5.0) mmol/L Chloride 103 (101-111) mmol/L Carbon Dioxide 27 (22-32) mmol/L Anion Gap 7 (2-11) mmol/L BUN 5 L (6-24) mg/dL Creatinine 0.87 (0.51-0.95) mg/dL Est GFR ( Amer) 89.4 (>60) Est GFR (Non-Af Amer) 69.5 (>60) BUN/Creatinine Ratio 5.7 L (8-20) Glucose 84 (70-100) mg/dL Lactic Acid (0.5-2.0) mmol/L Calcium 9.0 (8.6-10.3) mg/dL Total Bilirubin 0.50 (0.2-1.0) mg/dL AST 12 L (13-39) U/L ALT 8 (7-52) U/L Alkaline Phosphatase 90 (34-104) U/L Lactate Dehydrogenase 137 L (140-271) U/L Total Creatine Kinase 13 (10-223) U/L Total Protein 6.5 (6.4-8.9) g/dL Albumin 3.7 (3.2-5.2) g/dL Globulin 2.8 (2-4) g/dL Albumin/Globulin Ratio 1.3 (1-3) Urine Color Urine Appearance Urine pH (5-9) Ur Specific [place] (1.010-1.030) Urine Protein (Negative) Urine Ketones (Negative) Urine Blood (Negative) Urine Nitrate (Negative) Urine Bilirubin (Negative) Urine Urobilinogen (Negative) Ur Leukocyte Esterase (Negative) Urine WBC (Auto) (Absent) Urine RBC (Auto) (Absent) Ur Squamous Epith Cells (Absent) Urine Bacteria (Absent) Urine Glucose (Negative) Urine Ascorbic Acid 07/16/17 07/16/17 Range/Units 20:16 22:06 WBC (3.5-10.8) 10^3/ul RBC (4.0-5.4) 10^6/ul Hgb (12.0-16.0) g/dl Hct (35-47) % MCV (80-97) fL MCH (27-31) pg MCHC (31-36) g/dl RDW (10.5-15) % Plt Count (150-450) 10^3/ul MPV (7.4-10.4) um3 Neut % (Auto) (38-83) % Lymph % (Auto) (25-47) % Story % (Auto) (1-9) % Eos % (Auto) (0-6) % Baso % (Auto) (0-2) % Absolute Neuts (auto) (1.5-7.7) 10^3/ul Absolute Lymphs (auto) (1.0-4.8) 10^3/ul Absolute Monos (auto) (0-0.8) 10^3/ul Absolute Eos (auto) (0-0.6) 10^3/ul Absolute Basos (auto) (0-0.2) 10^3/ul Absolute Nucleated RBC 10^3/ul Nucleated RBC % INR (Anticoag Therapy) (0.77-1.02) Sodium (133-145) mmol/L Potassium (3.5-5.0) mmol/L Chloride (101-111) mmol/L Carbon Dioxide (22-32) mmol/L Anion Gap (2-11) mmol/L BUN (6-24) mg/dL Creatinine (0.51-0.95) mg/dL Est GFR ( Amer) (>60) Est GFR (Non-Af Amer) (>60) BUN/Creatinine Ratio (8-20) Glucose (70-100) mg/dL Lactic Acid 0.7 (0.5-2.0) mmol/L Calcium (8.6-10.3) mg/dL Total Bilirubin (0.2-1.0) mg/dL AST (13-39) U/L ALT (7-52) U/L Alkaline Phosphatase (34-104) U/L Lactate Dehydrogenase (140-271) U/L Total Creatine Kinase (10-223) U/L Total Protein (6.4-8.9) g/dL Albumin (3.2-5.2) g/dL Globulin (2-4) g/dL Albumin/Globulin Ratio (1-3) Urine Color Yellow Urine Appearance Cloudy Urine pH 6.0 (5-9) Ur Specific [place] 1.019 (1.010-1.030) Urine Protein Negative (Negative) Urine Ketones Trace H (Negative) Urine Blood 1+ H (Negative) Urine Nitrate Negative (Negative) Urine Bilirubin Negative (Negative) Urine Urobilinogen Negative (Negative) Ur Leukocyte Esterase Negative (Negative) Urine WBC (Auto) Trace(0-5/hpf) (Absent) Urine RBC (Auto) Trace(0-2/hpf) (Absent) Ur Squamous Epith Cells Present H (Absent) Urine Bacteria Absent (Absent) Urine Glucose Negative (Negative) Urine Ascorbic Acid Not Reportable Result Diagrams: 07/16/17 20:16 07/16/17 20:16 Lab Statement: Any lab studies that have been ordered have been reviewed, and results considered in the medical decision making process. - CT Maxillofacial CT CT Interpretation: Positive (See Comments) - IMPRESSION: Mild enlargement of the left masseter muscle with infiltration of fat. Clinical correlation to exclude an underlying infection is suggested. No definite abscess collection is noted. No fracture of the mandible is noted. Dr. Allen has reviewed this radiology report. CT Interpretation Completed By: Radiologist Re-Evaluation - Re-Evaluation First Eval Re-Evaluation Time: 22:19 Comment: I reviewed the lab and CT results with the pt. Complex Multi-Symp Course/Dx Course Of Treatment: I discussed pt care with Dr. Whyte, hospitalist. We tried to come up with a plan to change pt's antibiotics. Pt's last dose of antibiotics was yesterday and it appears that the neutropenia is likely related to the Vanco. Start clinda prophylactically. More likely to be inflammatory in nature. We will watch the pt for further disposition. Dr. Whyte will admit the pt to [facility]. - Diagnoses Provider Diagnoses: acute myositis of the jaw, Neutropenia - Physician Notifications Discussed Care Of Patient With: Fabian Whyte Time Discussed With Above Provider: 21:05 Instructed by Provider To: Other - I discussed pt care with Dr. Whyte, hospitalist. We tried to come up with a plan to change pt's antibiotics. Pt's last dose of antibiotics was yesterday so this should not be a problem. We will watch the pt for further disposition. - Critical Care Time Critical Care Time: 30-74 min - excludes separately billable procedures; includes review of records, complex MDM and consult x2. Discharge - Discharge Plan Condition: Good Disposition: ADMITTED TO [facility] The documentation as recorded by the Shukri mark Angela accurately reflects the service I personally performed and the decisions made by me, Arnaldo Allen MD.
[2017-07-17 06:10] LABS: EGFR Non-African American 72.4 (>60)
[2017-07-17 06:14] LABS: INR 2.76 (0.77-1.02)
[2017-07-17 08:08] LABS: Vancomycin Trough 8.2 mcg/mL
[2017-07-17] MEDS ORDERED: Perflutren Lipid Microsphere* 3 ML VIAL ONE (08:43)
[2017-07-17] MEDS: Ascorbic Acid TAB* 500 MG PO SCH (08:57)
[2017-07-17] MEDS: Methylphenidate ER TAB* 18 MG PO SCH (08:58)
[2017-07-17] MEDS: Oxybutynin TAB* 5 MG PO SCH ×2 (08:58→17:06)
[2017-07-17] MEDS: Omeprazole CAP* 20 MG PO SCH (08:59)
[2017-07-17] MEDS: Multivitamins/Minerals TAB PO SCH (08:59)
[2017-07-17] MEDS: Baclofen TAB* 10 MG PO SCH ×2 (08:59→19:40)
[2017-07-17] MEDS: Ferrous Sulfate TAB* 325 MG PO SCH (08:59)
[2017-07-17] MEDS ORDERED: Brexpiprazole (NF) 4 MG TAB PO SCH (09:00)
[2017-07-17] MEDS ORDERED: Amantadine CAP* 100 MG PO SCH (09:00)
[2017-07-17] MEDS: Mupirocin 2% OINT* TUBE TOPICAL SCH (09:00)
[2017-07-17] MEDS: Magnesium Hydroxide LIQ* 30 ML UDC PO SCH (09:01)
[2017-07-17] MEDS: PTO: Vilazodone (NF) 40 MG TAB PO SCH ×2 (09:02→11:46)
[2017-07-17] MEDS: Polyethylene Glycol 3350* 17 GM PACKET PO SCH (09:02)
[2017-07-17] MEDS ORDERED: Alteplase (CATHFLO)* 2 MG VIAL IV ONE (10:11)
[2017-07-17] MEDS: Ondansetron INJ* 2 MG/ML VIAL IV PRN ×2 (11:46→19:39)
--- NOTE | 2017-07-17 16:13 | PN ---
Subjective Date of Service: 07/17/17 Interval History: Complains of ongoing pain in her jaw. Also pain in her left hip. Percocet is not relieving the pain. She also has flushing in her face that began this afternoon. No blurry vision, joint pain, other muscle pain, fevers. Family History: Unchanged from Admission Social History: Unchanged from Admission Past Medical History: Unchanged from Admission Objective Active Medications: Acetaminophen (Tylenol Tab*) 650 mg PO Q4H PRN PRN Reason: FEVER/PAIN Acetaminophen (Tylenol Tab*) 650 mg PO Q4H PRN PRN Reason: FEVER/PAIN Amantadine HCl (Symmetrel Cap*) 100 mg PO DAILY [facility] Last Admin: 07/17/17 09:01 Dose: 100 mg Ascorbic Acid (Vitamin C Tab*) 500 mg PO DAILY [facility] Last Admin: 07/17/17 08:57 Dose: 500 mg Baclofen (Lioresal Tab*) 10 mg PO BID [facility] Last Admin: 07/17/17 08:59 Dose: 10 mg Brexpiprazole (Rexulti (Nf)) 2 mg PO DAILY [facility] Last Admin: 07/17/17 09:01 Dose: Not Given Dimethyl Fumarate (Tecfidera(Nf)) 240 mg PO DAILY [facility] Stop: 07/19/17 09:01 Ferrous Sulfate (Ferrous Sulfate Tab*) 325 mg PO DAILY [facility] Last Admin: 07/17/17 08:59 Dose: 325 mg Heparin Sodium (Porcine) (Heparin Flush Picc/Ml/Cvc(*)) 0 ml IV FLUSH 0600, 1800 [facility] PRN Reason: Protocol Last Admin: 07/17/17 05:33 Dose: 1 ml Levothyroxine Sodium (Synthroid Tab*) 75 mcg PO 0600 [facility] Last Admin: 07/17/17 05:34 Dose: 75 mcg Magnesium Hydroxide (Milk Of Magnesia Liq*) 30 ml PO DAILY [facility] Last Admin: 07/17/17 09:01 Dose: Not Given Methylphenidate HCl (Concerta Er Tab*) 36 mg PO DAILY [facility] Last Admin: 07/17/17 08:58 Dose: 36 mg Multivitamins/Minerals (Theragran/Minerals Tab*) 1 tab PO DAILY [facility] Last Admin: 07/17/17 08:59 Dose: 1 tab Mupirocin (Bactroban 2 % Oint*) 1 applic TOPICAL BID [facility] Last Admin: 07/17/17 09:00 Dose: 1 applic Omeprazole (Prilosec Cap*) 20 mg PO DAILY [facility] Last Admin: 07/17/17 08:59 Dose: 20 mg Ondansetron HCl (Zofran Inj*) 4 mg IV Q6H PRN PRN Reason: NAUSEA Last Admin: 07/17/17 11:46 Dose: 4 mg Oxybutynin Chloride (Ditropan Tab*) 5 mg PO QAM [facility] Last Admin: 07/17/17 08:58 Dose: 5 mg Oxybutynin Chloride (Ditropan Tab*) 7.5 mg PO QPM [facility] Oxycodone/Acetaminophen (Percocet 5/325 Tab*) 1 tab PO Q4H PRN PRN Reason: PAIN - MODERATE Last Admin: 07/17/17 15:09 Dose: 1 tab Polyethylene Glycol/Electrolytes (Miralax*) 17 gm PO DAILY [facility] Last Admin: 07/17/17 09:02 Dose: Not Given Vilazodone HCl (Viibryd (Nf)) 40 mg PO DAILY [facility] Last Admin: 07/17/17 11:46 Dose: 40 mg Vital Signs - 8 hr 07/17/17 07/17/17 07/17/17 08:58 11:30 14:16 Temperature 98.1 F 98.1 F Pulse Rate 84 Respiratory 18 16 Rate Blood Pressure 125/65 (mmHg) O2 Sat by Pulse 95 Oximetry 07/17/17 07/17/17 14:41 15:09 Temperature Pulse Rate Respiratory 18 16 Rate Blood Pressure (mmHg) O2 Sat by Pulse Oximetry Oxygen Devices in Use Now: None Appearance: alert with facial plethora Eyes: No Scleral Icterus Ears/Nose/Mouth/Throat: NL Teeth, Lips, Gums, Clear Oropharnyx, - - no mucosal lesions or ulcers. left temporamandibular joint tender to palpation. no edema. she can open her mouth 1cm Neck: NL Appearance and Movements; NL JVP Respiratory: Symmetrical Chest Expansion and Respiratory Effort Cardiovascular: NL Sounds; No Murmurs; No JVD, RRR, - - no rub Abdominal: NL Sounds; No Tenderness; No Distention, No Hepatosplenomegaly Lymphatic: No Cervical Adenopathy Extremities: No Edema Skin: No Rash or Ulcers Neurological: Alert and Oriented x 3 Result Diagrams: 07/16/17 20:16 07/17/17 05:40 Additional Lab and Data: Lab Results 07/16/17 07/16/17 07/16/17 Range/Units 20:16 20:16 20:16 WBC 2.1 L (3.5-10.8) 10^3/ul RBC 3.95 L (4.0-5.4) 10^6/ul Hgb 11.5 L (12.0-16.0) g/dl Hct 34 L (35-47) % MCV 86 (80-97) fL MCH 29 (27-31) pg MCHC 34 (31-36) g/dl RDW 15 (10.5-15) % Plt Count 256 (150-450) 10^3/ul MPV 8 (7.4-10.4) um3 Neut % (Auto) 26.6 L (38-83) % Lymph % (Auto) 33.5 (25-47) % [place] % (Auto) 24.4 H (1-9) % Eos % (Auto) 12.1 H (0-6) % Baso % (Auto) 3.4 H (0-2) % Absolute Neuts (auto) 0.6 L* (1.5-7.7) 10^3/ul Absolute Lymphs (auto) 0.7 L (1.0-4.8) 10^3/ul Absolute Monos (auto) 0.5 (0-0.8) 10^3/ul Absolute Eos (auto) 0.3 (0-0.6) 10^3/ul Absolute Basos (auto) 0.1 (0-0.2) 10^3/ul Absolute Nucleated RBC 0 10^3/ul Nucleated RBC % 0.3 INR (Anticoag Therapy) 2.24 H (0.77-1.02) Sodium 137 (133-145) mmol/L Potassium 3.3 L (3.5-5.0) mmol/L Chloride 103 (101-111) mmol/L Carbon Dioxide 27 (22-32) mmol/L Anion Gap 7 (2-11) mmol/L BUN 5 L (6-24) mg/dL Creatinine 0.87 (0.51-0.95) mg/dL Est GFR ( Amer) 89.4 (>60) Est GFR (Non-Af Amer) 69.5 (>60) BUN/Creatinine Ratio 5.7 L (8-20) Glucose 84 (70-100) mg/dL Lactic Acid (0.5-2.0) mmol/L Calcium 9.0 (8.6-10.3) mg/dL Total Bilirubin 0.50 (0.2-1.0) mg/dL AST 12 L (13-39) U/L ALT 8 (7-52) U/L Alkaline Phosphatase 90 (34-104) U/L Lactate Dehydrogenase 137 L (140-271) U/L Total Creatine Kinase 13 (10-223) U/L Total Protein 6.5 (6.4-8.9) g/dL Albumin 3.7 (3.2-5.2) g/dL Globulin 2.8 (2-4) g/dL Albumin/Globulin Ratio 1.3 (1-3) Urine Color Urine Appearance Urine pH (5-9) Ur Specific [place] (1.010-1.030) Urine Protein (Negative) Urine Ketones (Negative) Urine Blood (Negative) Urine Nitrate (Negative) Urine Bilirubin (Negative) Urine Urobilinogen (Negative) Ur Leukocyte Esterase (Negative) Urine WBC (Auto) (Absent) Urine RBC (Auto) (Absent) Ur Squamous Epith Cells (Absent) Urine Bacteria (Absent) Urine Glucose (Negative) Urine Ascorbic Acid 07/16/17 07/16/17 Range/Units 20:16 22:06 WBC (3.5-10.8) 10^3/ul RBC (4.0-5.4) 10^6/ul Hgb (12.0-16.0) g/dl Hct (35-47) % MCV (80-97) fL MCH (27-31) pg MCHC (31-36) g/dl RDW (10.5-15) % Plt Count (150-450) 10^3/ul MPV (7.4-10.4) um3 Neut % (Auto) (38-83) % Lymph % (Auto) (25-47) % [place] % (Auto) (1-9) % Eos % (Auto) (0-6) % Baso % (Auto) (0-2) % Absolute Neuts (auto) (1.5-7.7) 10^3/ul Absolute Lymphs (auto) (1.0-4.8) 10^3/ul Absolute Monos (auto) (0-0.8) 10^3/ul Absolute Eos (auto) (0-0.6) 10^3/ul Absolute Basos (auto) (0-0.2) 10^3/ul Absolute Nucleated RBC 10^3/ul Nucleated RBC % INR (Anticoag Therapy) (0.77-1.02) Sodium (133-145) mmol/L Potassium (3.5-5.0) mmol/L Chloride (101-111) mmol/L Carbon Dioxide (22-32) mmol/L Anion Gap (2-11) mmol/L BUN (6-24) mg/dL Creatinine (0.51-0.95) mg/dL Est GFR ( Amer) (>60) Est GFR (Non-Af Amer) (>60) BUN/Creatinine Ratio (8-20) Glucose (70-100) mg/dL Lactic Acid 0.7 (0.5-2.0) mmol/L Calcium (8.6-10.3) mg/dL Total Bilirubin (0.2-1.0) mg/dL AST (13-39) U/L ALT (7-52) U/L Alkaline Phosphatase (34-104) U/L Lactate Dehydrogenase (140-271) U/L Total Creatine Kinase (10-223) U/L Total Protein (6.4-8.9) g/dL Albumin (3.2-5.2) g/dL Globulin (2-4) g/dL Albumin/Globulin Ratio (1-3) Urine Color Yellow Urine Appearance Cloudy Urine pH 6.0 (5-9) Ur Specific [place] 1.019 (1.010-1.030) Urine Protein Negative (Negative) Urine Ketones Trace H (Negative) Urine Blood 1+ H (Negative) Urine Nitrate Negative (Negative) Urine Bilirubin Negative (Negative) Urine Urobilinogen Negative (Negative) Ur Leukocyte Esterase Negative (Negative) Urine WBC (Auto) Trace(0-5/hpf) (Absent) Urine RBC (Auto) Trace(0-2/hpf) (Absent) Ur Squamous Epith Cells Present H (Absent) Urine Bacteria Absent (Absent) Urine Glucose Negative (Negative) Urine Ascorbic Acid Not Reportable Assess/Plan/Problems-Billing Assessment: - Patient Problems (1) Myositis Current Visit: Yes Status: Acute Code(s): M60.9 - MYOSITIS, UNSPECIFIED SNOMED Code(s): 94227390 Comment: With history of myositis in her left hip, and now CT findings concerning for myositis in her masseter, I'm suspicious of an autoimmune process , especially in the setting of MS. I am sending anti-kj, NADINE, anti-W[employer], and anti-dsDNA. I discussed the case with Dr. Keller and appreciate his input. I have low suspicion for infectious myositis from hematogenous spread, and her teeth are good so I doubt a local infection. Pending rheum work up, she may benefit from steroids. Will improve pain control at this point. (2) Pulmonary emboli Current Visit: No Status: Acute Code(s): I26.99 - OTHER PULMONARY EMBOLISM WITHOUT ACUTE COR PULMONALE SNOMED Code(s): 67636661 Comment: Diagnosed in may; provoked post-op. Therapeutic on warfarin. (3) H/O multiple sclerosis Current Visit: No Status: Chronic Code(s): Z86.69 - PERSONAL HISTORY OF DIS OF THE NERVOUS SYS AND SENSE ORGANS SNOMED Code(s): 011161444 Comment: Not active at this time. She is not on any immune modulating agents. (4) Neutropenia Current Visit: Yes Status: Acute Code(s): D70.9 - NEUTROPENIA, UNSPECIFIED SNOMED Code(s): 268112969 Comment: Medication related? Vancomycin can be associated with agranulocytosis. It is now on hold; ID evaluating, may not need more vancomycin (was treating what was thought to be infectious myositis in her thigh ). She is not on any other medications that cause neutropenia. If does not improve, may consider BM evaluation.
--- NOTE | 2017-07-17 16:47 | CONSULT ---
Consult Consult: Ms. 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 She presented with jaw pain and imaging confirms enlargement of the masseter muscle. Consider an autoimmune basis of her symptoms; however she is also immunocompromised, and so we should consider a viral etiology such as CMV. Would check an aldolase and connective tissue panel and CMV titers and inflammatory markers. She is also neutropenic which could be autoimmune; infectious etiology seems less likely. Consider trial of steroids but we can first see what serologies show
[2017-07-17] MEDS: Morphine INJ* 4 MG/ML 1 ML CARPUJECT IV PRN (17:06)
--- NOTE | 2017-07-17 19:00 | ECHO ---
Patient: DINA MENDOSA [facility] Rec#: [id number] : 1970 Date: 07/17/2017 Age: 47y Height: 165.1 cm / 65.0 in Weight: 92.99 kg / 204.9 lbs Sex: F BSA: 2 Room#: 403 Admit Date#: 07/16/2017 Type: Inpatient Referring: Fabian Whyte MD Reading: Reggie Sanderson DO Dark Room Attendant: Steffanie Jorgensen RN RDCS CC: Torin Jimenez MD CC: Jamal Hardy MD CC: Chiki Chandler MD Transthoracic Echocardiogram Indication: Polymyositis BP: 117/59 HR: 78 Rhythm: NSR Findings History: Multiple sclerosis, asthma, YASMINE, obesity, DVT, pulmonary embolism, migraines, depression, substance abuse in the past, recent infective myositis left hip, admitted with jaw pain. Technical Comments: The study is technically limited due to poor apical windows. The patient had recent left breast reduction surgery and is unable to tolerate pressure in the surgical area. The study is technically limited due to patient body habitus. Completed at 1430. Left Ventricle: The left ventricular chamber size is normal. There is no left ventricular hypertrophy. Global left ventricular wall motion and contractility are within normal limits. There is normal left ventricular systolic function. The estimated ejection fraction is 60-65%. There is no consistent Doppler evidence of clinically significant diastolic dysfunction. Left Atrium: The left atrial chamber size is normal. Right Ventricle: The right ventricular chamber size and systolic function are within normal limits. Right Atrium: The right atrium is not well visualized. Aortic Valve: The aortic valve is trileaflet. There is no evidence of aortic regurgitation. There is no evidence of aortic stenosis. Mitral Valve: The mitral valve leaflets appear normal. There is a trace of mitral regurgitation. There is no evidence of mitral stenosis. Tricuspid Valve: The tricuspid valve leaflets are normal. There is trace tricuspid regurgitation. No pulmonary hypertension is noted. There is no tricuspid stenosis. Pulmonic Valve: The pulmonic valve appears normal. There is a trace pulmonic regurgitation. There is no pulmonic stenosis. Pericardium: There is a small pericardial effusion.that is very small and has thickening suggestive of chronicity A pericardial fat pad is visualized. Aorta: There is no dilatation of the ascending aorta. There is no dilatation of the aortic arch. There is no dilation of the aortic root. Pulmonary Artery: The main pulmonary artery is not well visualized. Venous: The venous system is not well visualized. The inferior vena cava is not visualized. Contrast: Definity was used to optimize study. A total of 2 ml of diluted Definity was given IV via PICC. Conclusions The left ventricular chamber size is normal. Global left ventricular wall motion and contractility are within normal limits. There is normal left ventricular systolic function. The estimated ejection fraction is 60-65%. The left atrial chamber size is normal. Normal RV size and function. Fair to good valve visualization of valves on parasternal imaging. No obvious valvular abnormalities noted. There is a very small pericardial effusion that has thickening suggestive of chronicity Definity was used to optimize visualization of endocardium in apical views Compared to prior study from 03/2011, the pericardial area (which also has a fat pad), appears slightly more prominent than on direct comparison to prior echocardiogram. Measurements Name Value Normal Range RVIDd (AP) 2D 2.1 cm (0.9 - 2.6) RVAW (2D) 0.5 cm (0.2 - 0.5) IVSd (2D) 1 cm (0.6 - 1) LVPWd (2D) 1 cm (0.6 - 1) LVIDd (2D) 4.6 cm (3.6 - 5.4) LVIDs (2D) 3.1 cm - LV FS (2D) 34 % (25 - 45) Aortic Annulus 2.1 cm (1.4 - 2.6) Ao root diameter (2D) 3.4 cm (2.1 - 3.5) Ascending Ao 2.6 cm (2.1 - 3.4) Aortic arch 3 cm (1.8 - 3.4) LA dimension (AP) 2D 2.8 cm (2.3 - 3.8) Name Value Normal Range MV E-wave Vmax 0.41 m/sec - MV deceleration time 341 msec - MV A-wave Vmax 0 m/sec - MV E:A ratio 0.73 ratio - LV septal e' Vmax 0.12 m/sec - LV lateral e' Vmax 0.07 m/sec - LV E:e' septal ratio 3.4 ratio - LV E:e' lateral ratio 5.9 ratio - Name Value Normal Range AV Vmax 0.95 m/sec - AV VTI 17.2 cm - AV peak gradient 3.6 mmHg - AV mean gradient 1.7 mmHg - LVOT Vmax 0.78 m/sec - LVOT VTI 13.8 cm - LVOT peak gradient 2.4 mmHg - LVOT mean gradient 1.2 mmHg - EUGENE Vmax 0.73 m/sec - Name Value Normal Range TR Vmax 2 m/sec - TR peak gradient 16 mmHg - RAP 8 mmHg - RVSP 24 mmHg - Name Value Normal Range PV Vmax 0.68 m/sec -
--- NOTE | 2017-07-17 19:25 | PN ---
Progress Note - Progress Note Date of Service: 07/17/17 Note: Cross cover note: Contacted by DONNY Leone from [facility] Brxpiprazole (Rexulti) recently stopped secondary to concerns it was contributing to neutropenia. It had only been started within the last week because it had not been available. I am discontinuing medication now.
--- NOTE | 2017-07-17 21:56 | CONS ---
CONSULTATION REPORT: DATE OF CONSULT: 07/17/17 REQUESTING PROVIDER: Dr. Whyte. CONSULTING SERVICE: Infectious Disease. REASON FOR CONSULT: Trismus. IMPRESSION: 1. Recently treated for a presumed infectious myositis of the left thigh with 4 weeks of vancomycin, resolution of her hip and thigh pain, as well as significant improvement in elevated C-reactive protein while on treatment. 2. Now with trismus and left jaw pain. A maxillofacial CT showed mild enlargement of the left mastoid muscle with infiltration of fat. There is nothing that looks like abscess. I do not think she has infectious myositis of the masseter muscle developed while she was on antibiotics for presumed myositis of the left thigh. It could be a complication of her antibiotic therapy like an allergic reaction or drug- induced autoimmune process or other autoimmune process is a consideration. She was recently started on Tecfidera, could that have precipitated these symptoms. 3. Facial rash, looks like a malar rash. Question autoimmune disorders including lupus or drug-induced lupus. 4. Multiple sclerosis on Tecfidera. 5. Recent diagnosis of DVT and pulmonary embolus on anticoagulation. 6. Leukopenia just developed which is new since 3 to 4 weeks of vancomycin therapy. I suspect this is due to vancomycin and it will resolve. Despite being neutropenic, she does not have the same infectious risk we think of with neutropenia due to chemotherapy. RECOMMENDATIONS: Agree with holding antibiotics and evaluation with Dr. Keller. If the components of this were due to vancomycin, should improve on their own over the next few days. HISTORY OF PRESENT ILLNESS: This is a 47-year-old woman with recent bilateral breast reduction surgery, pulmonary embolus, DVT, and left thigh and hip pain, found to have myositis of the left thigh muscle, was treated with 4 weeks of IV vancomycin which she had initially tolerated well and then recently developed some rash in her face which is not itchy. It kind of comes and goes. The pain in her left thigh has nearly gone and she is walking much better. She 2 to 3 days ago developed left jaw pain and difficulty opening her mouth due to pain when she did so. She has had no recent puncture wounds. She came to the hospital last night, had a CT of her face, which results are described above. White blood cell count was 2. C-reactive protein on was 14 down from 90 at her initial admission a month ago. PAST MEDICAL HISTORY: 1. Multiple sclerosis. 2. Pulmonary embolus and DVT recently diagnosed, on anticoagulation. 3. Status post bilateral reduction mammoplasty. 4. Gastroesophageal reflux disease. 5. Bladder spasm. 6. Depression. 7. PTSD. MEDICATIONS: 1. Tylenol. 2. Amantadine. 3. Ascorbic acid. 4. Baclofen. 5. Dimethyl fumarate. 6. Levothyroxine. 7. Multivitamin. 8. Omeprazole. 9. Polyethylene glycol. 10. Oxybutynin. ALLERGIES: BEE VENOM, ASPIRIN, PENICILLIN, CITRUS, SULFA. FAMILY HISTORY: No recurrent infections. SOCIAL HISTORY: She has been at [facility] since her last admission. She has no sick contacts that she knows of. REVIEW OF SYSTEMS: A 14-point review of systems is all negative except as noted above. PHYSICAL EXAM: Vital Signs: Temperature is 37, heart rate 84, respiratory rate 16, blood pressure 125/65, O2 sat 95% on room air. General: She is awake, not in distress. She has a flat affect. HEENT: There is no conjunctival hemorrhage. Oropharynx without lesions. She does have decreased opening of jaw with some tenderness of the left mandible. Neck is supple without mass. Lymph Nodes: There is no cervical, supraclavicular, inguinal, axillary, or epitrochlear lymphadenopathy. Heart is regular rate and rhythm without murmurs , rubs, or gallops. Lungs are clear to auscultation bilaterally. Abdomen: Soft, nontender, and nondistended. There are bowel sounds present. Skin: There is slight erythema over her nose and both cheeks. There is no other rash. Musculoskeletal: There is no spine tenderness to palpation and no thigh tenderness to palpation. DIAGNOSTIC STUDIES/LAB DATA: Creatinine 0.8, white blood cell count 2, hemoglobin 11.5, platelets 256. Please see impressions and recommendations outlined above. Thanks for asking me to see Ms. Cisneros in consultation. [id number]/[facility] #: [id number] SHIRA
--- NOTE | 2017-07-17 23:37 | CONS ---
CONSULTATION REPORT: DATE OF CONSULT: 07/17/17 CONSULTING PHYSICIANS: Dr. Fabian Whyte and Dana Kidd DO REASON FOR CONSULTATION: Evaluate for myositis. CHIEF COMPLAINT: Myositis. HISTORY OF PRESENT ILLNESS: Mrs. Cisneros is a 47-year-old woman with a longstanding history of multiple sclerosis followed by Dr. Barahona. She has had a recent complicated stay at [facility] from the 17 of June to the after presenting with some left hip discomfort and weakness and was found to have fluid tracking in the left eye as well as edema bilaterally in her gluteal muscles, thought to represent a possible infectious myositis. However, this was more recently ruled out by Infectious Disease. She has continued to have significant hip discomfort and restriction, but it has improved and she had been discharged to [facility] where she was getting some physical therapy. However, she has been very restricted and she has had difficulty with mobilizing her hip region and it has been difficult to walk, even standing or sitting on a hard chair has been difficult. Of note, her hospitalization in the past was also notable for severe back pain, although MRI and other imaging studies revealed no acute pathology. While her back pain has improved, she still has discomfort in the left hip region. After her discharge, she also had persistent left leg swelling. She was seen at [facility], where she was diagnosed with a DVT and she was given anticoagulation, which was transitioned to Coumadin. The remainder of her hospitalization was unremarkable ; however, the day prior to her presentation, she noted that she had difficulty with trismus of her mouth and she had pain in her left jaw at that time and it was difficult to even eat very much. She had a decreased appetite, but denied any fever, nausea, chills, vomiting, or diarrhea. Her face felt very red and she also had an intermittent headache with it. While she had no vision changes , she has had diffuse myalgias. The pain does increase in severity and she presented to the emergency room where a CT of the maxillofacial region revealed a mild enlargement of her left masseter muscle with infiltration of fat without any abscess. She was also found to be neutropenic with an absolute neutrophil count of 600. The left jaw pain has persisted, but otherwise she has felt that her other symptoms are stable with no significant back pain. Her symptoms are worse as the day goes on, but actually last all day. PAST MEDICAL HISTORY: Includes: 1. Multiple sclerosis. 2. Gastroesophageal reflux disease. 3. History of an overactive bladder. 4. Bladder spasm. 5. History of depression. 6. PTSD. 7. History of breast reduction. She has also been on Tecfidera for her multiple sclerosis. She has been exposed to corticosteroids in the past for her MS, but she has not been on it recently. PAST SURGICAL HISTORY: Includes dental surgery 2010 to 2011. CURRENT MEDICATIONS: As an inpatient include: 1. Coumadin 4 mg daily. 2. Tecfidera 240 mg 7 days starting on the . 3. Concerta 36 mg daily. 4. Ferrous sulfate 325 mg daily. 5. Symmetrel 100 mg daily. 6. Baclofen 10 mg twice daily. 7. Rexulti. 8. Milk of magnesia 20 mg daily. 9. Bactroban ointment to the left breast twice daily. 10. Omeprazole 20 mg daily. 11. Ditropan 7.5 mg at bedtime. 12. Oxybutynin 5 mg daily. 13. MiraLAX as needed. 14. Viibryd 40 mg daily. 15. Multivitamins 1 tablet daily. 16. Levothyroxine 75 mcg daily. 17. Vancomycin and she has had some redness on her skin, possibly from vancomycin as well. ALLERGIES: Include BEE VENOM, ONION, ASPIRIN, PENICILLIN, CITRUS, AND SULFA DRUGS. FAMILY HISTORY: Negative for immediate family history of lupus or rheumatoid arthritis, but there is a family history of autoimmune conditions and her mother has diabetes. SOCIAL HISTORY: She has a remote history of alcohol use, but she has been sober for 23 years. She has a history of suicidal ideations in the remote past. Currently, she is on disability and she has been living at [facility]. REVIEW OF SYSTEMS: General: She has had fatigue. HEENT: She has had jaw pain as noted above with jaw restriction. Pulmonary: Denies acute shortness of breath. Cardiac: Denies chest wall pain. Abdomen: Denies nausea or vomiting. : Denies blood in the urine or stool or urinary retention. Neurologic: She has had some subjective weakness in the thigh region, which is gradually improving. Skin: Denies any acute rash. She does have tattoos and some mild redness at times when the vancomycin was infused. Neurologic: As noted above with some muscle weakness. Musculoskeletal: She has had jaw pain. Other 14-point review of systems were reviewed and were otherwise negative. PHYSICAL EXAM: She is a pleasant woman, in no acute distress, sitting up. She did report jaw pain this morning, 6/10 and she received Percocet. Currently, her jaw pain is mild. In terms of her actual vital signs, her temperature is 98.1 orally and the blood pressure is 125/65 with a mean blood pressure of 79, pulse ox of 95% and that was at 11:30 today. On physical exam, she is pleasant , sitting up, in no acute distress. HEENT Exam: Normocephalic, atraumatic. Pupils are equal, round, and reactive to light and accommodation. Extraocular movements were intact. Jaw was difficult to appreciate as this was slightly restricted, but there is no abscess noted and no warmth or erythema around the jaw. Lymphs: No adenopathy. No parotid swelling. Lungs are clear to auscultation bilaterally. Cardiovascular Exam: Revealed a regular rate and rhythm. Normal S1 and S2. No S3 or S4. Point of maximum impulse nondisplaced. Abdomen: Soft, nontender, nondistended with positive bowel sounds with no organomegaly. Extremities: No cyanosis, clubbing or edema. : No CVA tenderness. Skin: She had tattoos bilaterally. There is minimal erythema along her forearms, but no acute rash. No cellulitis. Musculoskeletal : She had mild muscle weakness 4/5 in the left quad region, but otherwise was 5 /5. Musculoskeletal: There is no joint synovitis. DTRs were intact and pulses were 2+ in the upper and lower extremities. There is mild jaw restriction. DIAGNOSTIC STUDIES/LAB DATA: She had a maxillofacial CT, which showed mild enlargement to the left masseter muscle with infiltration of fat. She was neutropenic with a white count of 2.1, hemoglobin of 11.5, platelet count was normal. INR 2.76. Ionized calcium of 4.76. Glucose of 108. She had a CPK of 13, LDH of 137, which is low. Urinalysis showing 1+ blood and squamous epithelial cells present. AST was slightly low too and potassium was 3.3, but this improved to 3.6, creatinine was 0.84. ASSESSMENT: 1. Mrs. Cisneros has a longstanding history of multiple sclerosis, now with a possible myositis involving her large muscle region. An echo was ordered to evaluate for potential cardiac etiologies of her symptoms. She has also had an LDH checked. At this point of time, it is little unclear whether she has a truly evolving myositis. Her CPK is normal and her symptoms are somewhat asymmetric in nature. I would still consider whether she has an underlying viral type process that might be contributing to her symptoms and I would consider checking a CMV titer. She is immunosuppressed from therapy for her multiple sclerosis. I will also check an antinuclear antibody to screen for lupus and anti- Joellen-1 antibody. Ultimately, if she is felt to have an underlying connective tissue disorder, she may benefit from a trial of steroids. At this time, we should still consider whether she might have an underlying viral type process that might be contributing to her symptoms. Therefore, I would also check a CMV titer. 2. Neutropenia. Not clear if this could be related to medication. She had vancomycin, which has since stopped and that was switched to clindamycin. ID has been evaluating as well too. 3. DVT thrombosis and pulmonary embolism. Continue Coumadin. We will check anticardiolipin antibodies. 4. Multiple sclerosis. Seems that is stable. 5. Bladder spasm. She is on baclofen as well as oxybutynin. I will continue to follow and agree with neutropenic precautions, but hold off on steroids at this point in time until more clear diagnosis is elucidated. [id number]/[facility] #: [id number] MTDD
[2017-07-18] MEDS: Mupirocin 2% OINT* TUBE TOPICAL SCH ×3 (04:13→20:42)
[2017-07-18] MEDS: DIMETHYL FUMARATE 240 MG PO SCH ×3 (04:13→20:41)
[2017-07-18] MEDS: Levothyroxine TAB* 75 MCG TAB PO SCH (05:37)
[2017-07-18] MEDS: oxyCODONE/Acetamin 5/325 MG* TAB PO PRN ×3 (05:46→20:50)
[2017-07-18 05:59] LABS: Hematocrit 34 % (35-47); Hemoglobin 11.6 g/dl (12.0-16.0); Mean Corpuscular HGB Conc 34 g/dl (31-36); Mean Corpuscular Hemoglobin 29 pg (27-31); Mean Corpuscular Volume 86 fL (80-97); Mean Platelet Volume 8 um3 (7.4-10.4); Platelet Count 274 10^3/ul (150-450); Red Blood Count 3.97 10^6/ul (4.0-5.4); Red Cell Distribution Width 15 % (10.5-15); White Blood Count 1.8 10^3/ul (3.5-10.8)
[2017-07-18 06:06] LABS: ABS Basophils 0.1 10^3/ul (0-0.2); ABS Eosinophils 0.2 10^3/ul (0-0.6); ABS Lymphocytes 0.8 10^3/ul (1.0-4.8); ABS Monocytes 0.5 10^3/ul (0-0.8); ABS Neutrophils 0.2 10^3/ul (1.5-7.7); ABS Nucleated RBC 0 10^3/ul; Eosinophil % 11.4 % (0-6); Lymphocyte % 45.2 % (25-47); Nucleated Red Blood Cells % 0.4
--- NOTE | 2017-07-18 06:09 | PN ---
Progress Note - Progress Note Date of Service: 07/18/17 Note: Amantadine may cause agranulocytosis. ANC declining this AM Discontinued medication.
[2017-07-18 06:27] LABS: EGFR Non-African American 74.4 (>60)
[2017-07-18 06:47] LABS: INR 2.47 (0.77-1.02)
[2017-07-18] MEDS: Polyethylene Glycol 3350* 17 GM PACKET PO SCH (09:47)
[2017-07-18] MEDS: Magnesium Hydroxide LIQ* 30 ML UDC PO SCH (09:48)
[2017-07-18] MEDS: Baclofen TAB* 10 MG PO SCH ×2 (10:11→20:41)
[2017-07-18] MEDS: Methylphenidate ER TAB* 18 MG PO SCH (10:11)
[2017-07-18] MEDS: Oxybutynin TAB* 5 MG PO SCH ×2 (10:11→17:30)
[2017-07-18] MEDS: Omeprazole CAP* 20 MG PO SCH (10:11)
[2017-07-18] MEDS: Ascorbic Acid TAB* 500 MG PO SCH (10:11)
[2017-07-18] MEDS: Multivitamins/Minerals TAB PO SCH (10:11)
[2017-07-18] MEDS: Ferrous Sulfate TAB* 325 MG PO SCH (10:12)
[2017-07-18] MEDS: PTO: Vilazodone (NF) 40 MG TAB PO SCH (10:12)
--- NOTE | 2017-07-18 10:42 | PN ---
Subjective - Subjective Date of Service: 07/18/17 - chief complaint Myositis History: Overall her jaw pain is improved slightly. Denied hi grade fevers. She feels generally weak which she relates to her baseline MS Active Problems: Active Problems Myositis (Acute) M60.9 With history of myositis in her left hip, and now CT findings concerning for myositis in her masseter, I'm suspicious of an autoimmune process, especially in the setting of MS. I am sending anti-kj, NADINE, anti-ASBESTOS REMOVER, and anti-dsDNA. I discussed the case with Dr. Keller and appreciate his input. I have low suspicion for infectious myositis from hematogenous spread, and her teeth are good so I doubt a local infection. Pending rheum work up, she may benefit from steroids. Will improve pain control at this point. Neutropenia (Acute) D70.9 Medication related? Vancomycin can be associated with agranulocytosis. It is now on hold; ID evaluating, may not need more vancomycin (was treating what was thought to be infectious myositis in her thigh). She is not on any other medications that cause neutropenia. If does not improve, may consider BM evaluation. Current Medications: Current Medications Acetaminophen (Tylenol Tab*) 650 mg PO Q4H PRN PRN Reason: FEVER/PAIN Ascorbic Acid (Vitamin C Tab*) 500 mg PO DAILY [facility] Last Admin: 07/18/17 10:11 Dose: 500 mg Baclofen (Lioresal Tab*) 10 mg PO BID [facility] Last Admin: 07/18/17 10:11 Dose: 10 mg Dimethyl Fumarate (Tecfidera(Nf)) 240 mg PO DAILY [facility] Stop: 07/19/17 09:01 Last Admin: 07/18/17 09:48 Dose: Not Given Ferrous Sulfate (Ferrous Sulfate Tab*) 325 mg PO DAILY [facility] Last Admin: 07/18/17 10:12 Dose: 325 mg Heparin Sodium (Porcine) (Heparin Flush Picc/Ml/Cvc(*)) 0 ml IV FLUSH 0600, 1800 [facility] PRN Reason: Protocol Last Admin: 07/18/17 05:30 Dose: 1 ml Levothyroxine Sodium (Synthroid Tab*) 75 mcg PO 0600 [facility] Last Admin: 07/18/17 05:37 Dose: 75 mcg Magnesium Hydroxide (Milk Of Magnesia Liq*) 30 ml PO DAILY [facility] Last Admin: 07/18/17 09:48 Dose: Not Given Methylphenidate HCl (Concerta Er Tab*) 36 mg PO DAILY [facility] Last Admin: 07/18/17 10:11 Dose: 36 mg Morphine Sulfate (Morphine Inj (Syringe)*) 4 mg IV Q4H PRN PRN Reason: PAIN Last Admin: 07/17/17 17:06 Dose: 4 mg Multivitamins/Minerals (Theragran/Minerals Tab*) 1 tab PO DAILY [facility] Last Admin: 07/18/17 10:11 Dose: 1 tab Mupirocin (Bactroban 2 % Oint*) 1 applic TOPICAL BID [facility] Last Admin: 07/18/17 10:12 Dose: 1 applic Omeprazole (Prilosec Cap*) 20 mg PO DAILY [facility] Last Admin: 07/18/17 10:11 Dose: 20 mg Ondansetron HCl (Zofran Inj*) 4 mg IV Q6H PRN PRN Reason: NAUSEA Last Admin: 07/17/17 19:39 Dose: 4 mg Oxybutynin Chloride (Ditropan Tab*) 5 mg PO QAM [facility] Last Admin: 07/18/17 10:11 Dose: 5 mg Oxybutynin Chloride (Ditropan Tab*) 7.5 mg PO QPM [facility] Last Admin: 07/17/17 17:06 Dose: 7.5 mg Oxycodone/Acetaminophen (Percocet 5/325 Tab*) 1 tab PO Q4H PRN PRN Reason: PAIN - MODERATE Last Admin: 07/18/17 10:11 Dose: 1 tab Polyethylene Glycol/Electrolytes (Miralax*) 17 gm PO DAILY [facility] Last Admin: 07/18/17 09:47 Dose: Not Given Vilazodone HCl (Viibryd (Nf)) 40 mg PO DAILY [facility] Last Admin: 07/18/17 10:12 Dose: 40 mg - Review of Systems Constitutional Symptoms: Yes: Weakness, Fatigue, No: Weight Gain, Weight Loss, Night Sweats, Unexplained Falls Dermatology: Normal: Yes HEENT: Yes Normal Eyes: Positive: Normal Thyroid: Positive: Normal Pulmonary: Positive: Normal Cardiology: Positive: Normal Gastroenterology: Positive: Normal Musculoskeletal: Positive: Joint Stiffness Endocrinology: Positive: Normal Allergic/Immunologic: Positive: Immunocompromise Home Medications: Home Medications Medication Instructions Recorded Confirmed Type Oxybutynin TAB* [Ditropan TAB*] 5 mg PO QAM 08/09/13 07/17/17 History Amantadine CAP* [Symmetrel CAP*] 100 mg PO BID 04/14/14 07/17/17 History Vilazodone (NF) [Viibryd (NF)] 40 mg PO DAILY 03/05/16 07/17/17 History Baclofen TAB* [Lioresal TAB*] 15 mg PO BID 08/10/16 07/17/17 History Levothyroxine TAB* [Synthroid 75 75 mcg PO DAILY 06/17/17 07/17/17 History MCG TAB*] Methylphenidate ER TAB* [Concerta 36 mg PO DAILY 06/17/17 07/17/17 History ER TAB*] Omeprazole CAP* [Prilosec CAP* 20 20 mg PO DAILY 06/17/17 07/17/17 History MG] Oxybutynin TAB* [Ditropan TAB*] 10 mg PO QPM 06/17/17 07/17/17 History Acetaminophen TAB* [Tylenol TAB*] 650 mg PO Q4H PRN tab 06/25/17 07/17/17 Rx Heparin FLUSH PICC/ML/CVC(*) 1 - 3 ml FLUSH 0600,1800 syringe 06/25/17 Rx Mupirocin 2% OINT* [Bactroban 2 % 1 applic TOPICAL BID tube 06/25/17 07/17/17 Rx Oint*] Vancomycin HCl in Sodium Chlor 1,000 mg IV Q12HR #40 inj 06/25/17 07/17/17 Rx [Vancomycin HCl 1-0.9 gm/200Ml-%] Dimethyl Fumarate(NF) 240 mg PO BID 07/17/17 07/17/17 History [Tecfidera(NF)] Dimethyl Fumarate(NF) 240 mg PO QPM 07/17/17 07/17/17 History [Tecfidera(NF)] Enoxaparin Sodium [Lovenox] 100 mg SUBCUT BID 07/17/17 07/17/17 History Oxycodone HCl 5 mg PO Q4HR PRN 07/17/17 07/17/17 History Potassium Chloride [K-Tab] 20 meq PO DAILY 01/26/18 01/26/18 History Sennosides [Senna Lax] 8.6 mg PO BID 07/17/17 07/17/17 History Warfarin Sodium [Coumadin] 4 mg PO DAILY 07/17/17 07/17/17 History Allergies: Allergies Allergy/AdvReac Type Severity Reaction Status Date / Time Bee Venom Allergy Severe See Comment Verified 07/16/17 23:52 Onion Allergy Severe See Comment Verified 07/16/17 23:52 Aspirin Allergy Intermediate Nausea Verified 07/16/17 23:52 Penicillins [PCN] Allergy Intermediate See Comment Verified 07/16/17 23:52 Duplin Allergy Unknown See Comment Verified 07/16/17 23:52 Sulfa Drugs Allergy Unknown Unknown Verified 07/16/17 23:52 Reaction Details Objective - Vital Signs Vital Signs: Vital Signs 07/17/17 07/17/17 07/17/17 11:30 14:16 14:41 Temperature 98.1 F 98.1 F Pulse Rate 84 Respiratory 16 18 Rate Blood Pressure 125/65 (mmHg) O2 Sat by Pulse 95 Oximetry 07/17/17 07/17/17 07/17/17 15:09 15:57 17:06 Temperature 98.8 F Pulse Rate 100 Respiratory 16 16 18 Rate Blood Pressure 125/65 (mmHg) O2 Sat by Pulse 93 Oximetry 07/17/17 07/17/17 07/17/17 18:05 18:06 19:34 Temperature 98.1 F Pulse Rate 111 Respiratory 16 16 18 Rate Blood Pressure 131/70 (mmHg) O2 Sat by Pulse 94 Oximetry 07/17/17 07/17/17 07/17/17 19:39 20:00 22:29 Temperature Pulse Rate Respiratory 18 18 18 Rate Blood Pressure (mmHg) O2 Sat by Pulse Oximetry 07/17/17 07/18/17 07/18/17 23:24 03:38 05:46 Temperature 97.8 F Pulse Rate 98 82 Respiratory 17 17 17 Rate Blood Pressure 131/68 128/71 (mmHg) O2 Sat by Pulse 97 94 Oximetry 07/18/17 07/18/17 07/18/17 07:05 09:49 10:11 Temperature 97.5 F Pulse Rate 87 Respiratory 16 16 16 Rate Blood Pressure 111/65 (mmHg) O2 Sat by Pulse 95 Oximetry - Intake and Output Intake and Output: Intake & Output 07/16/17 07/17/17 07/18/17 07/19/17 06:59 06:59 06:59 06:59 Intake Total 10 235 240 Balance 10 235 240 Weight 204 lb Intake: IV Fluids 10 5 NS (0.9%) 10 5 Oral 0 230 240 Other: Estimated Void Medium # Bowel Movements 0 # Voids 1 0 ADLs: Meal Record Start: 07/17/17 00: 54 Freq: DAILY@0900,1400,1800 Status: Active Protocol: Created 07/17/17 00:54 System (Rec: 07/17/17 00:54 System [id number]) Document 07/17/17 09:00 [id number] (Rec: 07/17/17 10:23 [id number] MED-C09) Document 07/17/17 13:56 [id number] (Rec: 07/17/17 13:59 [id number] MED-C09) Document 07/17/17 18:00 [id number] (Rec: 07/17/17 19:17 [id number] MED-C09) Document 07/18/17 09:00 [id number] (Rec: 07/18/17 10:14 [id number] MED-C09) Intake and Output Start: 07/17/17 00: 54 Freq: DAILY@0600,1400,2200 Status: Active Protocol: Created 07/17/17 00:54 System (Rec: 07/17/17 00:54 System MED-C26) Document 07/17/17 05:30 [id number] (Rec: 07/17/17 05:30 [id number] MED-C26) Document 07/17/17 13:59 [id number] (Rec: 07/17/17 13:59 [id number] MED-C09) Document 07/17/17 22:00 [id number] (Rec: 07/17/17 22:51 [id number] MED-C09) Document 07/18/17 05:32 [id number] (Rec: 07/18/17 05:34 [id number] MEDL-C02) - Physical Exam General Physical Exam Comment: No acute distress sitting up Eye Exam: bilateral: PERRLA - Decreased tenderness of lateral jaw Head: Yes Normocephalic Lungs and Chest: Yes: Chest Expansion Full, Chest Expansion Symetrica Abdominal Exam: Yes: Soft - Rheumotological System Joints: Range of Motion - Extremities Limbs: Normal Power Reflexes: Right: Biceps, Triceps, Knee - Neuro Psychiatric: Normal Speech: Normal Results - Results Lab Results: Laboratory Results - last 24 hr 07/17/17 07/17/17 07/18/17 19:30 19:30 05:40 WBC 1.8 L RBC 3.97 L Hgb 11.6 L Hct 34 L MCV 86 MCH 29 MCHC 34 RDW 15 Plt Count 274 MPV 8 Neut % (Auto) 13.4 L Lymph % (Auto) 45.2 Williams % (Auto) 26.3 H Eos % (Auto) 11.4 H Baso % (Auto) 3.7 H Absolute Neuts (auto) 0.2 L* Absolute Lymphs (auto) 0.8 L Absolute Monos (auto) 0.5 Absolute Eos (auto) 0.2 Absolute Basos (auto) 0.1 Absolute Nucleated RBC 0 Nucleated RBC % 0.4 ESR 49 H INR (Anticoag Therapy) Sodium Potassium Chloride Carbon Dioxide Anion Gap BUN Creatinine Est GFR ( Amer) Est GFR (Non-Af Amer) BUN/Creatinine Ratio Glucose Calcium Magnesium Total Bilirubin AST ALT Alkaline Phosphatase C-Reactive Protein 16.46 H Total Protein Albumin Globulin Albumin/Globulin Ratio 07/18/17 07/18/17 05:40 05:40 WBC RBC Hgb Hct MCV MCH MCHC RDW Plt Count MPV Neut % (Auto) Lymph % (Auto) Williams % (Auto) Eos % (Auto) Baso % (Auto) Absolute Neuts (auto) Absolute Lymphs (auto) Absolute Monos (auto) Absolute Eos (auto) Absolute Basos (auto) Absolute Nucleated RBC Nucleated RBC % ESR INR (Anticoag Therapy) 2.47 H Sodium 139 Potassium 3.3 L Chloride 103 Carbon Dioxide 30 Anion Gap 6 BUN 6 Creatinine 0.82 Est GFR ( Amer) 95.7 Est GFR (Non-Af Amer) 74.4 BUN/Creatinine Ratio 7.3 L Glucose 88 Calcium 9.3 Magnesium 1.9 Total Bilirubin 0.40 AST 14 ALT 9 Alkaline Phosphatase 98 C-Reactive Protein Total Protein 6.6 Albumin 3.7 Globulin 2.9 Albumin/Globulin Ratio 1.3 Assessment - Problem List Assessment: Patient Problems Myositis (Acute) Neutropenia (Acute) Asthma (Acute) DNR (do not resuscitate) (Acute) DVT prophylaxis (Acute) DVT prophylaxis (Acute) Elevated TSH (Acute) Full code status (Acute) History of recurrent pneumonia (Acute) Left hip pain (Acute) Low urine output (Acute) Multiple sclerosis (Acute) Pulmonary emboli (Acute) Status post breast reduction (Acute) Surgical wound infection (Acute) Transaminitis (Acute) UTI (urinary tract infection) (Acute 04/14/14) Weakness (Acute) Constipation (Chronic) Depression (Chronic) H/O multiple sclerosis (Chronic) Plan: Myositis: ID evaluation noted. Autoimmune studies are pending. She has elevated inflammatory markers consistent with an inflammatory process. Elevated CRP: Autoimmune workup pending Leukopenia: Med related? Amantadine being held. May need hematology eval MS: continue present therapy History of blood Clot: on anticoagulation; continue present therapy
[2017-07-18] MEDS: Morphine INJ* 4 MG/ML 1 ML CARPUJECT IV PRN ×2 (13:09→17:33)
[2017-07-18] MEDS: Ondansetron INJ* 2 MG/ML VIAL IV PRN ×2 (14:30→20:48)
--- NOTE | 2017-07-18 18:44 | PN ---
Subjective Date of Service: 07/18/17 Interval History: . Interviewed and examined patient at bedside; Reviewed previous notes and radiology results; Noted rheumatology consult notes. patient feels she is getting better, though slowly. labs show WBC decreasing further; not improved. . Family History: Unchanged from Admission Social History: Unchanged from Admission Past Medical History: Unchanged from Admission Objective Active Medications: . Acetaminophen (Tylenol Tab*) 650 mg PO Q4H PRN PRN Reason: FEVER/PAIN Ascorbic Acid (Vitamin C Tab*) 500 mg PO DAILY [facility] Last Admin: 07/18/17 10:11 Dose: 500 mg Baclofen (Lioresal Tab*) 10 mg PO BID [facility] Last Admin: 07/18/17 10:11 Dose: 10 mg Dimethyl Fumarate (Tecfidera(Nf)) 240 mg PO BEDTIME [facility] Stop: 07/20/17 21:01 Ferrous Sulfate (Ferrous Sulfate Tab*) 325 mg PO DAILY [facility] Last Admin: 07/18/17 10:12 Dose: 325 mg Heparin Sodium (Porcine) (Heparin Flush Picc/Ml/Cvc(*)) 0 ml IV FLUSH 0600, 1800 [facility] PRN Reason: Protocol Last Admin: 07/18/17 17:29 Dose: 1 ml Levothyroxine Sodium (Synthroid Tab*) 75 mcg PO 0600 [facility] Last Admin: 07/18/17 05:37 Dose: 75 mcg Magnesium Hydroxide (Milk Of Magnesia Liq*) 30 ml PO DAILY [facility] Last Admin: 07/18/17 09:48 Dose: Not Given Methylphenidate HCl (Concerta Er Tab*) 36 mg PO DAILY [facility] Last Admin: 07/18/17 10:11 Dose: 36 mg Morphine Sulfate (Morphine Inj (Syringe)*) 4 mg IV Q4H PRN PRN Reason: PAIN Last Admin: 07/18/17 17:33 Dose: 4 mg Multivitamins/Minerals (Theragran/Minerals Tab*) 1 tab PO DAILY [facility] Last Admin: 07/18/17 10:11 Dose: 1 tab Mupirocin (Bactroban 2 % Oint*) 1 applic TOPICAL BID [facility] Last Admin: 07/18/17 10:12 Dose: 1 applic Omeprazole (Prilosec Cap*) 20 mg PO DAILY [facility] Last Admin: 07/18/17 10:11 Dose: 20 mg Ondansetron HCl (Zofran Inj*) 4 mg IV Q6H PRN PRN Reason: NAUSEA Last Admin: 07/18/17 14:30 Dose: 4 mg Oxybutynin Chloride (Ditropan Tab*) 5 mg PO QAM [facility] Last Admin: 07/18/17 10:11 Dose: 5 mg Oxybutynin Chloride (Ditropan Tab*) 7.5 mg PO QPM [facility] Last Admin: 07/18/17 17:30 Dose: 7.5 mg Oxycodone/Acetaminophen (Percocet 5/325 Tab*) 1 tab PO Q4H PRN PRN Reason: PAIN - MODERATE Last Admin: 07/18/17 10:11 Dose: 1 tab Polyethylene Glycol/Electrolytes (Miralax*) 17 gm PO DAILY [facility] Last Admin: 07/18/17 09:47 Dose: Not Given Vilazodone HCl (Viibryd (Nf)) 40 mg PO DAILY [facility] Last Admin: 07/18/17 10:12 Dose: 40 mg . Vital Signs - 8 hr 07/18/17 07/18/17 07/18/17 13:09 14:08 16:07 Temperature 98.1 F Pulse Rate 97 Respiratory 18 16 16 Rate Blood Pressure 119/62 (mmHg) O2 Sat by Pulse 94 Oximetry 07/18/17 17:33 Temperature Pulse Rate Respiratory 16 Rate Blood Pressure (mmHg) O2 Sat by Pulse Oximetry Oxygen Devices in Use Now: Nasal Cannula, CPAP Appearance: chronically ill appearing. Eyes: No Scleral Icterus Ears/Nose/Mouth/Throat: NL Teeth, Lips, Gums Neck: NL Appearance and Movements; NL JVP Respiratory: Symmetrical Chest Expansion and Respiratory Effort Cardiovascular: NL Sounds; No Murmurs; No JVD Abdominal: NL Sounds; No Tenderness; No Distention Skin: No Rash or Ulcers Neurological: Alert and Oriented x 3 Lines/Tubes/Other Access: Clean, Dry and Intact Peripheral IV Nutrition: Taking PO's Result Diagrams: 07/19/17 07:17 07/19/17 07:17 Additional Lab and Data: . Assess/Plan/Problems-Billing . Assessment: 47 yo female with jaw and hip pain , thought 2/2 polymyositis not clear whether secondary to medications (vanco?) or autoimmune process. Holding culprit medications Awaiting inflammatory serologies specific to certain diseases. . - Patient Problems (1) Myositis Current Visit: Yes Status: Acute Code(s): M60.9 - MYOSITIS, UNSPECIFIED Comment: - h/o myositis in her left hip, problem PREDATED VANCO...thought infectious, ( hence vanco) but now second distant musche more c/w inflammatory process. - Now, CT findings concerning for myositis in her masseter - Would be consistent with an autoimmune process, given h/o multiple sclerosis, and would be more likely than ongoing infectious myositis. - Awaiting anti-kj, NADINE, anti-ENGINEERING DEPARTMENT CHAIR, and anti-dsDNA (as per rheum) - Dr. Keller (rheumatology) consulting (input appreciated) (2) Neutropenia Current Visit: Yes Status: Acute Code(s): D70.9 - NEUTROPENIA, UNSPECIFIED Comment: - Medication related? I favor vanco as the most likely culprit med. - Again, vancomycin can be associated with agranulocytosis (on hold) - other candidate meds on hold as well, but will likely restart. (3) Multiple sclerosis Current Visit: No Status: Acute Code(s): G35 - MULTIPLE SCLEROSIS Comment : - Followed by Dr Barahona / on Tecfidera - If polymyositis secondary to inflammatory process that requires immunosuppression, then would coordinate plan with neurology and MS treatment plan. -- however, it must be noted that patient is improving in most respects, including muscle pain, so perhaps that will not be necessary. (4) Pulmonary emboli Current Visit: No Status: Acute Code(s): I26.99 - OTHER PULMONARY EMBOLISM WITHOUT ACUTE COR PULMONALE Comment: - Diagnosed in may; provoked post-op. - Therapeutic on warfarin.
[2017-07-18] MEDS ORDERED: Alteplase (CATHFLO)* 2 MG VIAL IV ONE (19:00)
[2017-07-18] MEDS ORDERED: Polyethylene Glycol 3350* 17 GM PACKET PO PRN (21:51)
[2017-07-18] MEDS: Docusate CAP* 100 MG PO SCH (23:12)
[2017-07-19] MEDS: oxyCODONE/Acetamin 5/325 MG* TAB PO PRN (06:06)
[2017-07-19] MEDS: Levothyroxine TAB* 75 MCG TAB PO SCH (06:06)
[2017-07-19] MEDS: Ondansetron INJ* 2 MG/ML VIAL IV PRN ×2 (07:12→13:27)
[2017-07-19 07:27] LABS: ABS Basophils 0.1 10^3/ul (0-0.2); ABS Eosinophils 0.2 10^3/ul (0-0.6); ABS Monocytes 0.6 10^3/ul (0-0.8); ABS Neutrophils 1.6 10^3/ul (1.5-7.7); ABS Nucleated RBC 0 10^3/ul; Eosinophil % 6.1 % (0-6); Hematocrit 36 % (35-47); Hemoglobin 12.4 g/dl (12.0-16.0); Lymphocyte % 29.4 % (25-47); Mean Corpuscular HGB Conc 34 g/dl (31-36); Mean Corpuscular Hemoglobin 29 pg (27-31); Mean Corpuscular Volume 86 fL (80-97); Mean Platelet Volume 8 um3 (7.4-10.4); Nucleated Red Blood Cells % 0.2; Platelet Count 294 10^3/ul (150-450); Red Blood Count 4.21 10^6/ul (4.0-5.4); Red Cell Distribution Width 15 % (10.5-15); White Blood Count 3.5 10^3/ul (3.5-10.8)
[2017-07-19] MEDS ORDERED: Potassium Chlor TAB* 20 MEQ TAB.ER PO ONE (07:41)
[2017-07-19 07:45] LABS: EGFR Non-African American 68.6 (>60)
[2017-07-19] MEDS ORDERED: Magnesium Sulf 4 GM/100 ML IV* 4,000 MG/100 ML BAG IVPB ONE (08:00)
[2017-07-19] MEDS: Ascorbic Acid TAB* 500 MG PO SCH (09:15)
[2017-07-19] MEDS: Methylphenidate ER TAB* 18 MG PO SCH (09:15)
[2017-07-19] MEDS: Ferrous Sulfate TAB* 325 MG PO SCH (09:15)
[2017-07-19] MEDS: Baclofen TAB* 10 MG PO SCH ×2 (09:15→21:28)
[2017-07-19] MEDS: Omeprazole CAP* 20 MG PO SCH (09:15)
[2017-07-19] MEDS: Oxybutynin TAB* 5 MG PO SCH ×2 (09:15→18:03)
[2017-07-19] MEDS: Multivitamins/Minerals TAB PO SCH (09:15)
[2017-07-19] MEDS: PTO: Vilazodone (NF) 40 MG TAB PO SCH (09:16)
[2017-07-19] MEDS: KCL 10 MEQ/50 ML IVPREMIX* 10 MEQ/50 ML BAG IV SCH ×4 (09:16→13:18)
[2017-07-19] MEDS: Magnesium Hydroxide LIQ* 30 ML UDC PO SCH (09:21)
[2017-07-19] MEDS: Docusate CAP* 100 MG PO SCH ×2 (09:21→21:28)
[2017-07-19] MEDS: Polyethylene Glycol 3350* 17 GM PACKET PO SCH (09:22)
[2017-07-19] MEDS: Mupirocin 2% OINT* TUBE TOPICAL SCH ×2 (12:02→21:29)
--- NOTE | 2017-07-19 12:58 | PN ---
Subjective Date of Service: 07/19/17 Interval History: . Feels better today. Less hip pain, but still L facial pain - worse with opening of mouth. discussed lab results... Family History: Unchanged from Admission Social History: Unchanged from Admission Past Medical History: Unchanged from Admission Objective Active Medications: . Acetaminophen (Tylenol Tab*) 650 mg PO Q4H PRN PRN Reason: FEVER/PAIN Ascorbic Acid (Vitamin C Tab*) 500 mg PO DAILY [facility] Last Admin: 07/19/17 09:15 Dose: 500 mg Baclofen (Lioresal Tab*) 10 mg PO BID [facility] Last Admin: 07/19/17 09:15 Dose: 10 mg Dimethyl Fumarate (Tecfidera(Nf)) 240 mg PO BEDTIME [facility] Stop: 07/20/17 21:01 Last Admin: 07/18/17 20:41 Dose: 240 mg Docusate Sodium (Colace Cap*) 100 mg PO BID [facility] Last Admin: 07/19/17 09:21 Dose: 100 mg Ferrous Sulfate (Ferrous Sulfate Tab*) 325 mg PO DAILY [facility] Last Admin: 07/19/17 09:15 Dose: 325 mg Heparin Sodium (Porcine) (Heparin Flush Picc/Ml/Cvc(*)) 0 ml IV FLUSH 0600, 1800 [facility] PRN Reason: Protocol Last Admin: 07/19/17 06:07 Dose: 1 ml Levothyroxine Sodium (Synthroid Tab*) 75 mcg PO 0600 [facility] Last Admin: 07/19/17 06:06 Dose: 75 mcg Magnesium Hydroxide (Milk Of Magnesia Liq*) 30 ml PO DAILY [facility] Last Admin: 07/19/17 09:21 Dose: 30 ml Methylphenidate HCl (Concerta Er Tab*) 36 mg PO DAILY [facility] Last Admin: 07/19/17 09:15 Dose: 36 mg Morphine Sulfate (Morphine Inj (Syringe)*) 4 mg IV Q4H PRN PRN Reason: PAIN Last Admin: 07/18/17 17:33 Dose: 4 mg Multivitamins/Minerals (Theragran/Minerals Tab*) 1 tab PO DAILY [facility] Last Admin: 07/19/17 09:15 Dose: 1 tab Mupirocin (Bactroban 2 % Oint*) 1 applic TOPICAL BID [facility] Last Admin: 07/19/17 12:02 Dose: 1 applic Omeprazole (Prilosec Cap*) 20 mg PO DAILY [facility] Last Admin: 07/19/17 09:15 Dose: 20 mg Ondansetron HCl (Zofran Inj*) 4 mg IV Q6H PRN PRN Reason: NAUSEA Last Admin: 07/19/17 07:12 Dose: 4 mg Oxybutynin Chloride (Ditropan Tab*) 5 mg PO QAM [facility] Last Admin: 07/19/17 09:15 Dose: 5 mg Oxybutynin Chloride (Ditropan Tab*) 7.5 mg PO QPM [facility] Last Admin: 07/18/17 17:30 Dose: 7.5 mg Oxycodone/Acetaminophen (Percocet 5/325 Tab*) 1 tab PO Q4H PRN PRN Reason: PAIN - MODERATE Last Admin: 07/19/17 06:06 Dose: 1 tab Polyethylene Glycol/Electrolytes (Miralax*) 17 gm PO DAILY [facility] Last Admin: 07/19/17 09:22 Dose: Not Given Polyethylene Glycol/Electrolytes (Miralax*) 17 gm PO DAILY PRN PRN Reason: CONSTIPATION Vilazodone HCl (Viibryd (Nf)) 40 mg PO DAILY [facility] Last Admin: 07/19/17 09:16 Dose: 40 mg . Vital Signs - 8 hr 07/19/17 07/19/17 07/19/17 06:06 07:38 08:00 Temperature 98.0 F Pulse Rate 81 Respiratory 17 18 18 Rate Blood Pressure 117/74 (mmHg) O2 Sat by Pulse 97 Oximetry 07/19/17 10:43 Temperature Pulse Rate Respiratory 18 Rate Blood Pressure (mmHg) O2 Sat by Pulse Oximetry Oxygen Devices in Use Now: Nasal Cannula, CPAP Appearance: NAD, A&Ox3 Ears/Nose/Mouth/Throat: Clear Oropharnyx, - - left parotid region and tenriism area pain, tightness, firmness (c/w massetter muscle enlargement / soreness) Respiratory: Symmetrical Chest Expansion and Respiratory Effort Cardiovascular: NL Sounds; No Murmurs; No JVD Abdominal: NL Sounds; No Tenderness; No Distention Lymphatic: No Cervical Adenopathy Extremities: No Edema Skin: No Rash or Ulcers Neurological: Alert and Oriented x 3 Lines/Tubes/Other Access: Clean, Dry and Intact Peripheral IV Nutrition: Taking PO's Result Diagrams: 07/19/17 07:17 07/19/17 07:17 Additional Lab and Data: . Assess/Plan/Problems-Billing . Assessment: 47 yo female with jaw and hip pain, thought 2/2 polymyositis, not clear whether secondary to medications (vanco?) or autoimmune process. Holding culprit medications (vanco) for association with (also observed) agranulocytosis / neutropenia. Awaiting inflammatory serologies specific to certain diseases. . - Patient Problems (1) Myositis Current Visit: Yes Status: Acute Code(s): M60.9 - MYOSITIS, UNSPECIFIED Comment: - h/o myositis in her left hip, problem PREDATED VANCO...thought infectious, ( hence vanco) but now second distant musche more c/w inflammatory process. - Now, CT findings concerning for myositis in her masseter - Would be consistent with an autoimmune process, given h/o multiple sclerosis, and would be more likely than ongoing infectious myositis. - Awaiting anti-kj, NADINE, anti-TOURISM RADIO PRESENTER, and anti-dsDNA (as per rheum) - Dr. Keller (rheumatology) consulting (input appreciated) (2) Neutropenia Current Visit: Yes Status: Acute Code(s): D70.9 - NEUTROPENIA, UNSPECIFIED Comment: - Medication related? Given improvement on 07/19 without immunosuppression, likely WAS medication related. I favor vanco as the most likely culprit med. - Again, vancomycin can be associated with agranulocytosis (on hold) - other candidate meds on hold as well, but will likely restart. (3) Multiple sclerosis Current Visit: No Status: Acute Code(s): G35 - MULTIPLE SCLEROSIS Comment : - Followed by Dr Barahona / on Tecfidera - If polymyositis secondary to inflammatory process that requires immunosuppression, then would coordinate plan with neurology and MS treatment plan. -- however, it must be noted that patient is improving in most respects, including muscle pain, so perhaps that will not be necessary. (4) Pulmonary emboli Current Visit: No Status: Acute Code(s): I26.99 - OTHER PULMONARY EMBOLISM WITHOUT ACUTE COR PULMONALE Comment: - Diagnosed in may; provoked post-op. - Therapeutic on warfarin.
[2017-07-19] MEDS: Morphine INJ* 4 MG/ML 1 ML CARPUJECT IV PRN (18:03)
[2017-07-19] MEDS: DIMETHYL FUMARATE 240 MG PO SCH (21:28)
[2017-07-20] MEDS: Levothyroxine TAB* 75 MCG TAB PO SCH (06:07)
[2017-07-20] MEDS: Methylphenidate ER TAB* 18 MG PO SCH (08:13)
[2017-07-20] MEDS: Ferrous Sulfate TAB* 325 MG PO SCH (08:13)
[2017-07-20] MEDS: Multivitamins/Minerals TAB PO SCH (08:14)
[2017-07-20] MEDS: Omeprazole CAP* 20 MG PO SCH (08:14)
[2017-07-20] MEDS: Ascorbic Acid TAB* 500 MG PO SCH (08:14)
[2017-07-20] MEDS: Docusate CAP* 100 MG PO SCH ×2 (08:14→20:53)
[2017-07-20] MEDS: Baclofen TAB* 10 MG PO SCH ×2 (08:14→20:54)
[2017-07-20] MEDS: Magnesium Hydroxide LIQ* 30 ML UDC PO SCH (08:15)
[2017-07-20] MEDS: PTO: Vilazodone (NF) 40 MG TAB PO SCH (08:15)
[2017-07-20] MEDS: Polyethylene Glycol 3350* 17 GM PACKET PO SCH (08:16)
[2017-07-20] MEDS: Oxybutynin TAB* 5 MG PO SCH ×2 (08:16→18:18)
[2017-07-20] MEDS: Mupirocin 2% OINT* TUBE TOPICAL SCH ×2 (08:16→21:07)
[2017-07-20] MEDS ORDERED: Albuterol 2.5 MG/3 ML NEB.SOL* (0.083%) INH PRN (08:19)
[2017-07-20] MEDS: Morphine INJ* 4 MG/ML 1 ML CARPUJECT IV PRN ×2 (08:51→15:24)
[2017-07-20] MEDS: oxyCODONE/Acetamin 5/325 MG* TAB PO PRN (11:11)
--- NOTE | 2017-07-20 12:53 | PN ---
Subjective Date of Service: 07/20/17 Interval History: Still complains of left jaw pain. She has only been able to eat soft foods. No overnight events. She also notes recent hair loss. She has numbness on the bottoms of both feet, but that is unchanged from baseline. Family History: Unchanged from Admission Social History: Unchanged from Admission Past Medical History: Unchanged from Admission Objective Active Medications: Acetaminophen (Tylenol Tab*) 650 mg PO Q4H PRN PRN Reason: FEVER/PAIN Albuterol (Ventolin 2.5 Mg/3 Ml Neb.Lidia*) 2.5 mg INH Q4H PRN PRN Reason: SOB/WHEEZING Ascorbic Acid (Vitamin C Tab*) 500 mg PO DAILY [facility] Last Admin: 07/20/17 08:14 Dose: 500 mg Baclofen (Lioresal Tab*) 10 mg PO BID [facility] Last Admin: 07/20/17 08:14 Dose: 10 mg Dimethyl Fumarate (Tecfidera(Nf)) 240 mg PO BEDTIME [facility] Stop: 07/20/17 21:01 Last Admin: 07/19/17 21:28 Dose: 240 mg Docusate Sodium (Colace Cap*) 100 mg PO BID [facility] Last Admin: 07/20/17 08:14 Dose: 100 mg Ferrous Sulfate (Ferrous Sulfate Tab*) 325 mg PO DAILY [facility] Last Admin: 07/20/17 08:13 Dose: 325 mg Heparin Sodium (Porcine) (Heparin Flush Picc/Ml/Cvc(*)) 0 ml IV FLUSH 0600, 1800 [facility] PRN Reason: Protocol Last Admin: 07/20/17 06:07 Dose: 1 ml Levothyroxine Sodium (Synthroid Tab*) 75 mcg PO 0600 [facility] Last Admin: 07/20/17 06:07 Dose: 75 mcg Magnesium Hydroxide (Milk Of Magnesia Liq*) 30 ml PO DAILY [facility] Last Admin: 07/20/17 08:15 Dose: Not Given Methylphenidate HCl (Concerta Er Tab*) 36 mg PO DAILY [facility] Last Admin: 07/20/17 08:13 Dose: 36 mg Morphine Sulfate (Morphine Inj (Syringe)*) 4 mg IV Q4H PRN PRN Reason: PAIN Last Admin: 07/20/17 08:51 Dose: 4 mg Multivitamins/Minerals (Theragran/Minerals Tab*) 1 tab PO DAILY [facility] Last Admin: 07/20/17 08:14 Dose: 1 tab Mupirocin (Bactroban 2 % Oint*) 1 applic TOPICAL BID [facility] Last Admin: 07/20/17 08:16 Dose: 1 applic Omeprazole (Prilosec Cap*) 20 mg PO DAILY [facility] Last Admin: 07/20/17 08:14 Dose: 20 mg Ondansetron HCl (Zofran Inj*) 4 mg IV Q6H PRN PRN Reason: NAUSEA Last Admin: 07/19/17 13:27 Dose: 4 mg Oxybutynin Chloride (Ditropan Tab*) 5 mg PO QAM [facility] Last Admin: 07/20/17 08:16 Dose: 5 mg Oxybutynin Chloride (Ditropan Tab*) 7.5 mg PO QPM [facility] Last Admin: 07/19/17 18:03 Dose: 7.5 mg Oxycodone/Acetaminophen (Percocet 5/325 Tab*) 1 tab PO Q4H PRN PRN Reason: PAIN - MODERATE Last Admin: 07/20/17 11:11 Dose: 1 tab Polyethylene Glycol/Electrolytes (Miralax*) 17 gm PO DAILY [facility] Last Admin: 07/20/17 08:16 Dose: Not Given Polyethylene Glycol/Electrolytes (Miralax*) 17 gm PO DAILY PRN PRN Reason: CONSTIPATION Vilazodone HCl (Viibryd (Nf)) 40 mg PO DAILY [facility] Last Admin: 07/20/17 08:15 Dose: 40 mg Vital Signs - 8 hr 07/20/17 07/20/17 07/20/17 07:34 08:51 11:11 Temperature 97.9 F Pulse Rate 69 Respiratory 16 16 16 Rate Blood Pressure 104/60 (mmHg) O2 Sat by Pulse 97 Oximetry 07/20/17 11:17 Temperature Pulse Rate Respiratory 16 Rate Blood Pressure (mmHg) O2 Sat by Pulse Oximetry Oxygen Devices in Use Now: Nasal Cannula, CPAP Appearance: no distress, anxious, pill-rolling tremor Eyes: No Scleral Icterus Ears/Nose/Mouth/Throat: NL Teeth, Lips, Gums, - - able to open mouth 2cm, tender to palpation over left TMJ Neck: NL Appearance and Movements; NL JVP Respiratory: Symmetrical Chest Expansion and Respiratory Effort, Clear to Auscultation Cardiovascular: NL Sounds; No Murmurs; No JVD, RRR Abdominal: NL Sounds; No Tenderness; No Distention Lymphatic: No Cervical Adenopathy Extremities: No Edema Skin: No Rash or Ulcers Neurological: Alert and Oriented x 3, - - LLE strength 3+, RLE strength 4+ Result Diagrams: 07/19/17 07:17 07/19/17 07:17 Additional Lab and Data: . Microbiology and Other Data: Microbiology 07/19/17 13:20 Nasal Screen MRSA (PCR)([facility]) - Final Nasal Mrsa Negative Assess/Plan/Problems-Billing . Assessment: 47 yo female with MS and now polymyositis of unclear etiology. . - Patient Problems (1) Myositis Current Visit: Yes Status: Acute Code(s): M60.9 - MYOSITIS, UNSPECIFIED SNOMED Code(s): 40701263 Comment: When it was found in her left hip after a recent surgery (breast reduction), infectious source was presumed and was treated with vancomycin. Now , however, with a second distant muscle involved, it is more suspicious for an autoimmune source. NDAINE, however, is just weakly positive, and anti-kj is negative. Awaiting aldolase and CMV titers. Will also check anti-histone. Not likely to be related to MS. Continue pain control. (2) Pulmonary emboli Current Visit: No Status: Acute Code(s): I26.99 - OTHER PULMONARY EMBOLISM WITHOUT ACUTE COR PULMONALE SNOMED Code(s): 44296165 Comment: Diagnosed in may; provoked post-op. Therapeutic on warfarin. (3) H/O multiple sclerosis Current Visit: No Status: Chronic Code(s): Z86.69 - PERSONAL HISTORY OF DIS OF THE NERVOUS SYS AND SENSE ORGANS SNOMED Code(s): 402174894 Comment: Not active at this time. Tecfidera on hold becuase of myositis (4) Neutropenia Current Visit: Yes Status: Acute Code(s): D70.9 - NEUTROPENIA, UNSPECIFIED SNOMED Code(s): 649826773 Comment: Now resolved after withholding vancomycin.
--- NOTE | 2017-07-20 18:51 | PN ---
Subjective - Subjective Date of Service: 07/20/17 - chief complaint : myositis History: Although jaw pain comes and goes (patient states that it is generally better tonight and she is eating better) she still has generalized weakness of her quad regions; although in part she attributed this to MS, she has noted that generally her quads and gluteal regions have been weak since May and it is hard to get around and ambulate very far Active Problems: Active Problems Myositis (Acute) M60.9 When it was found in her left hip after a recent surgery (breast reduction), infectious source was presumed and was treated with vancomycin. Now, however, with a second distant muscle involved, it is more suspicious for an autoimmune source. NADINE, however, is just weakly positive, and anti-kj is negative. Awaiting aldolase and CMV titers. Will also check anti-histone. Not likely to be related to MS. Continue pain control. Neutropenia (Acute) D70.9 Now resolved after withholding vancomycin. Current Medications: Current Medications Acetaminophen (Tylenol Tab*) 650 mg PO Q4H PRN PRN Reason: FEVER/PAIN Albuterol (Ventolin 2.5 Mg/3 Ml Neb.Lidia*) 2.5 mg INH Q4H PRN PRN Reason: SOB/WHEEZING Ascorbic Acid (Vitamin C Tab*) 500 mg PO DAILY [facility] Last Admin: 07/20/17 08:14 Dose: 500 mg Baclofen (Lioresal Tab*) 10 mg PO BID [facility] Last Admin: 07/20/17 08:14 Dose: 10 mg Dimethyl Fumarate (Tecfidera(Nf)) 240 mg PO BEDTIME [facility] Stop: 07/20/17 21:01 Last Admin: 07/19/17 21:28 Dose: 240 mg Docusate Sodium (Colace Cap*) 100 mg PO BID [facility] Last Admin: 07/20/17 08:14 Dose: 100 mg Ferrous Sulfate (Ferrous Sulfate Tab*) 325 mg PO DAILY [facility] Last Admin: 07/20/17 08:13 Dose: 325 mg Heparin Sodium (Porcine) (Heparin Flush Picc/Ml/Cvc(*)) 0 ml IV FLUSH 0600, 1800 [facility] PRN Reason: Protocol Last Admin: 07/20/17 18:19 Dose: 1 ml Levothyroxine Sodium (Synthroid Tab*) 75 mcg PO 0600 [facility] Last Admin: 07/20/17 06:07 Dose: 75 mcg Magnesium Hydroxide (Milk Of Magnesia Liq*) 30 ml PO DAILY [facility] Last Admin: 07/20/17 08:15 Dose: Not Given Methylphenidate HCl (Concerta Er Tab*) 36 mg PO DAILY [facility] Last Admin: 07/20/17 08:13 Dose: 36 mg Morphine Sulfate (Morphine Inj (Syringe)*) 4 mg IV Q4H PRN PRN Reason: PAIN Last Admin: 07/20/17 15:24 Dose: 4 mg Multivitamins/Minerals (Theragran/Minerals Tab*) 1 tab PO DAILY [facility] Last Admin: 07/20/17 08:14 Dose: 1 tab Mupirocin (Bactroban 2 % Oint*) 1 applic TOPICAL BID [facility] Last Admin: 07/20/17 08:16 Dose: 1 applic Omeprazole (Prilosec Cap*) 20 mg PO DAILY [facility] Last Admin: 07/20/17 08:14 Dose: 20 mg Ondansetron HCl (Zofran Inj*) 4 mg IV Q6H PRN PRN Reason: NAUSEA Last Admin: 07/19/17 13:27 Dose: 4 mg Oxybutynin Chloride (Ditropan Tab*) 5 mg PO QAM [facility] Last Admin: 07/20/17 08:16 Dose: 5 mg Oxybutynin Chloride (Ditropan Tab*) 7.5 mg PO QPM [facility] Last Admin: 07/20/17 18:18 Dose: 7.5 mg Oxycodone/Acetaminophen (Percocet 5/325 Tab*) 1 tab PO Q4H PRN PRN Reason: PAIN - MODERATE Last Admin: 07/20/17 11:11 Dose: 1 tab Polyethylene Glycol/Electrolytes (Miralax*) 17 gm PO DAILY [facility] Last Admin: 07/20/17 08:16 Dose: Not Given Polyethylene Glycol/Electrolytes (Miralax*) 17 gm PO DAILY PRN PRN Reason: CONSTIPATION Vilazodone HCl (Viibryd (Nf)) 40 mg PO DAILY [facility] Last Admin: 07/20/17 08:15 Dose: 40 mg - Review of Systems Constitutional Symptoms: Yes: Weakness, Fatigue, No: Weight Gain, Weight Loss, Fever, Unexplained Falls Dermatology: Normal: Yes HEENT: Yes Normal Eyes: Positive: Normal Thyroid: Positive: Normal Pulmonary: Positive: Normal Cardiology: Positive: Normal Gastroenterology: Positive: Normal Musculoskeletal: Positive: Joint Stiffness Endocrinology: Positive: Normal Neurology: Positive: Unexplained Weakness Psychiatry: Positive: [place] Allergic/Immunologic: Positive: Immunocompromise Home Medications: Home Medications Medication Instructions Recorded Confirmed Type Oxybutynin TAB* [Ditropan TAB*] 5 mg PO QAM 08/09/13 07/17/17 History Amantadine CAP* [Symmetrel CAP*] 100 mg PO BID 04/14/14 07/17/17 History Vilazodone (NF) [Viibryd (NF)] 40 mg PO DAILY 03/05/16 07/17/17 History Baclofen TAB* [Lioresal TAB*] 15 mg PO BID 08/10/16 07/17/17 History Levothyroxine TAB* [Synthroid 75 75 mcg PO DAILY 06/17/17 07/17/17 History MCG TAB*] Methylphenidate ER TAB* [Concerta 36 mg PO DAILY 06/17/17 07/17/17 History ER TAB*] Omeprazole CAP* [Prilosec CAP* 20 20 mg PO DAILY 06/17/17 07/17/17 History MG] Oxybutynin TAB* [Ditropan TAB*] 10 mg PO QPM 06/17/17 07/17/17 History Acetaminophen TAB* [Tylenol TAB*] 650 mg PO Q4H PRN tab 06/25/17 07/17/17 Rx Heparin FLUSH PICC/ML/CVC(*) 1 - 3 ml FLUSH 0600,1800 syringe 06/25/17 Rx Mupirocin 2% OINT* [Bactroban 2 % 1 applic TOPICAL BID tube 06/25/17 07/17/17 Rx Oint*] Vancomycin HCl in Sodium Chlor 1,000 mg IV Q12HR #40 inj 06/25/17 07/17/17 Rx [Vancomycin HCl 1-0.9 gm/200Ml-%] Dimethyl Fumarate(NF) 240 mg PO BID 07/17/17 07/17/17 History [Tecfidera(NF)] Dimethyl Fumarate(NF) 240 mg PO QPM 07/17/17 07/17/17 History [Tecfidera(NF)] Enoxaparin Sodium [Lovenox] 100 mg SUBCUT BID 07/17/17 07/17/17 History Oxycodone HCl 5 mg PO Q4HR PRN 07/17/17 07/17/17 History Potassium Chloride [K-Tab] 20 meq PO DAILY 07/17/17 07/17/17 History Sennosides [Senna Lax] 8.6 mg PO BID 07/17/17 07/17/17 History Warfarin Sodium [Coumadin] 4 mg PO DAILY 07/17/17 07/17/17 History Allergies: Allergies Allergy/AdvReac Type Severity Reaction Status Date / Time Bee Venom Allergy Severe See Comment Verified 07/16/17 23:52 Onion Allergy Severe See Comment Verified 07/16/17 23:52 Aspirin Allergy Intermediate Nausea Verified 07/16/17 23:52 Penicillins [PCN] Allergy Intermediate See Comment Verified 07/16/17 23:52 [place] Allergy Unknown See Comment Verified 07/16/17 23:52 Sulfa Drugs Allergy Unknown Unknown Verified 07/16/17 23:52 Reaction Details Objective - Vital Signs Vital Signs: Vital Signs 07/19/17 07/19/17 07/19/17 20:00 23:09 23:10 Temperature Pulse Rate Respiratory 18 18 18 Rate Blood Pressure (mmHg) O2 Sat by Pulse Oximetry 07/19/17 07/20/17 07/20/17 23:21 04:15 07:34 Temperature 97.9 F 97.9 F Pulse Rate 97 83 69 Respiratory 16 17 16 Rate Blood Pressure 130/71 120/73 104/60 (mmHg) O2 Sat by Pulse 97 96 97 Oximetry 07/20/17 07/20/17 07/20/17 08:00 08:51 11:03 Temperature 98.2 F Pulse Rate 89 Respiratory 18 16 18 Rate Blood Pressure 115/63 (mmHg) O2 Sat by Pulse 99 Oximetry 07/20/17 07/20/17 07/20/17 11:11 11:17 15:24 Temperature Pulse Rate Respiratory 16 16 16 Rate Blood Pressure (mmHg) O2 Sat by Pulse Oximetry 07/20/17 07/20/17 17:19 18:27 Temperature Pulse Rate Respiratory 16 16 Rate Blood Pressure (mmHg) O2 Sat by Pulse Oximetry - Intake and Output Intake and Output: Intake & Output 07/18/17 07/19/17 07/20/17 07/21/17 06:59 06:59 06:59 06:59 Intake Total 133 805 8599 470 Balance 271 093 7034 470 Intake: IV Fluids 5 485 NS (0.9%) 5 485 IVPB 300 Potassium 300 Oral 230 580 580 470 Other: Estimated Void Medium Large # Bowel Movements 0 0 # Voids 0 0 1 ADLs: Meal Record Start: 07/17/17 00: 54 Freq: DAILY@0900,1400,1800 Status: Active Protocol: Created 07/17/17 00:54 System (Rec: 07/17/17 00:54 System MED-C26) Document 07/17/17 09:00 [id number] (Rec: 07/17/17 10:23 [id number] MED-C09) Document 07/17/17 13:56 [id number] (Rec: 07/17/17 13:59 [id number] MED-C09) Document 07/17/17 18:00 [id number] (Rec: 07/17/17 19:17 [id number] MED-C09) Document 07/18/17 09:00 [id number] (Rec: 07/18/17 10:14 [id number] MED-C09) Document 07/18/17 13:54 [id number] (Rec: 07/18/17 13:55 [id number] MED-C09) Document 07/18/17 18:00 [id number] (Rec: 07/18/17 19:18 [id number] MED-C09) Document 07/19/17 09:00 [id number] (Rec: 07/19/17 11:49 [id number] MED-C09) Document 07/19/17 13:56 [id number] (Rec: 07/19/17 13:57 [id number] MED-C09) Document 07/19/17 18:00 [id number] (Rec: 07/19/17 21:59 [id number] MED-C09) Document 07/20/17 08:58 [id number] (Rec: 07/20/17 08:58 [id number] MED-M11) Document 07/20/17 09:00 [id number] (Rec: 07/20/17 14:00 [id number] MED-C11) Intake and Output Start: 07/17/17 00: 54 Freq: DAILY@0600,1400,2200 Status: Active Protocol: Created 07/17/17 00:54 System (Rec: 07/17/17 00:54 System MED-C26) Document 07/17/17 05:30 [id number] (Rec: 07/17/17 05:30 [id number] MED-C26) Document 07/17/17 13:59 [id number] (Rec: 07/17/17 13:59 [id number] MED-C09) Document 07/17/17 22:00 [id number] (Rec: 07/17/17 22:51 [id number] MED-C09) Document 07/18/17 05:32 [id number] (Rec: 07/18/17 05:34 [id number] MEDL-C02) Document 07/18/17 13:54 [id number] (Rec: 07/18/17 13:55 [id number] MED-C09) Document 07/18/17 22:00 [id number] (Rec: 07/18/17 22:11 [id number] MED-C09) Document 07/19/17 04:35 [id number] (Rec: 07/19/17 04:35 [id number] MEDL-C02) Document 07/19/17 13:56 [id number] (Rec: 07/19/17 13:57 [id number] MED-C09) Document 07/19/17 22:00 [id number] (Rec: 07/19/17 22:06 [id number] MED-C09) - Physical Exam General Physical Exam Comment: No acute distress sitting up Eye Exam: bilateral: PERRLA - Decreased tenderness along masseter muscle Head: Yes Normocephalic Thyroid Function: Clinically Euthyroid Lungs and Chest: Yes: Chest Expansion Full, Chest Expansion Symetrica, Percussion Note Resonant Heart Rate and Rhythm: Regular JVP: Not Elevated [place] Beat: Non Displaced Additional Cardiovascular: Yes: [place] Beat not Displaced, Normal Heart Sounds Abdominal Exam: Yes: Soft - Rheumotological System Joints: Range of Motion - Extremities Posterior Tibial Pulse: Bilateral Normal Dorsalis Pedis Pulses: Bilateral Normal Hematology: No Supraclavicular Adenopathy Limbs: Abnormal Power - Quads 4/5 strength bilaterally; otherwise muscle strength is 5/5 in triceps and biceps - Neuro Orientation: A/O x3 Psychiatric: Normal Speech: Normal Results - Results Lab Results: Laboratory Results - last 24 hr 07/17/17 07/17/17 07/17/17 19:30 19:30 19:30 Aldolase 3.7 TSH Rheumatoid Factor <15 CMV IgG Ab Negative CMV IgM Ab Negative CMV DNA Detection Undetected 07/20/17 14:38 Aldolase TSH 1.06 Rheumatoid Factor CMV IgG Ab CMV IgM Ab CMV DNA Detection Assessment - Problem List Assessment: Patient Problems Myositis (Acute) Neutropenia (Acute) Asthma (Acute) DNR (do not resuscitate) (Acute) DVT prophylaxis (Acute) DVT prophylaxis (Acute) Elevated TSH (Acute) Full code status (Acute) History of recurrent pneumonia (Acute) Left hip pain (Acute) Low urine output (Acute) Multiple sclerosis (Acute) Pulmonary emboli (Acute) Status post breast reduction (Acute) Surgical wound infection (Acute) Transaminitis (Acute) UTI (urinary tract infection) (Acute 04/14/14) Weakness (Acute) Constipation (Chronic) Depression (Chronic) H/O multiple sclerosis (Chronic) Plan: Myositis: Ms. Cisneros does not have a classic picture of polymyositis as muscle enzymes are normal. Serologic testing is not revealing so far and CMV titers are normal. She may have an underlying myopathic process in her quads on review of prior imaging studies. Consider muscular biopsy of the quad region, which can be done by general surgery ( a biopsy of the masseter muscle could also be considered, but she is starting to note some improvement in this region). Positive NADINE: it is a low titer and not specific; possibly related to her MS? FILEMON panel is pending History of blood clots: workup neg so far; continue anticoagulation
[2017-07-20] MEDS: DIMETHYL FUMARATE 240 MG PO SCH (20:53)
[2017-07-21] MEDS: Levothyroxine TAB* 75 MCG TAB PO SCH (06:14)
[2017-07-21] MEDS: Mupirocin 2% OINT* TUBE TOPICAL SCH ×2 (08:24→20:40)
[2017-07-21] MEDS: PTO: Vilazodone (NF) 40 MG TAB PO SCH (08:25)
[2017-07-21] MEDS: Docusate CAP* 100 MG PO SCH ×2 (08:25→20:38)
[2017-07-21] MEDS: Ferrous Sulfate TAB* 325 MG PO SCH (08:25)
[2017-07-21] MEDS: Oxybutynin TAB* 5 MG PO SCH ×2 (08:25→17:59)
[2017-07-21] MEDS: Ascorbic Acid TAB* 500 MG PO SCH (08:25)
[2017-07-21] MEDS: Methylphenidate ER TAB* 18 MG PO SCH (08:25)
[2017-07-21] MEDS: Multivitamins/Minerals TAB PO SCH (08:25)
[2017-07-21] MEDS: Baclofen TAB* 10 MG PO SCH ×2 (08:25→20:38)
[2017-07-21] MEDS: Omeprazole CAP* 20 MG PO SCH (08:25)
[2017-07-21] MEDS: Morphine INJ* 4 MG/ML 1 ML CARPUJECT IV PRN ×2 (10:14→16:51)
[2017-07-21] MEDS: Magnesium Hydroxide LIQ* 30 ML UDC PO SCH (10:52)
[2017-07-21] MEDS: Polyethylene Glycol 3350* 17 GM PACKET PO SCH (10:53)
[2017-07-21] MEDS ORDERED: Gadoteridol* (CONTRAST) 279.3 MG/ML 10 ML IV ONE (12:07)
--- NOTE | 2017-07-21 12:49 | RAD ---
HISTORY: PICC line placement COMPARISONS: June 19, 2017 VIEWS: 2: Frontal and lateral views of the chest. FINDINGS: CARDIOMEDIASTINAL SILHOUETTE: The cardiomediastinal silhouette is normal. DALILA: The dalila are normal. PLEURA: The costophrenic angles are sharp. No pleural abnormalities are noted. LUNG PARENCHYMA: The lungs are clear. ABDOMEN: The upper abdomen is clear. There is no subphrenic gas. BONES AND SOFT TISSUES: No bone or soft tissue abnormalities are noted. OTHER: A right-sided PICC line is noted with the tip overlying the expected location of the confluence of the right subclavian vein and the right brachiocephalic vein IMPRESSION: NO ACTIVE CARDIOPULMONARY DISEASE.
--- NOTE | 2017-07-21 13:11 | RAD ---
Indication: Evaluate for myositis. Image sequences: Coronal STIR, T1, sagittal T1, STIR, axial T1, T2 fat sat and STIR images were obtained. Precontrast axial and coronal T1-weighted fat sat images were obtained. Gadolinium was injected and postcontrast images were also obtained. Approximately 20 mL of ProHance was injected. Comparison is made with previous exam dated June 19, 2017. Previously identified edema in the deep abductors of the muscle is no longer present. No evidence of muscular edema is noted currently. No evidence of abnormal enhancement is noted. No evidence of bone marrow edema is noted. IMPRESSION: Previously identified muscular enhancement along the abductor muscles of the left proximal thigh is no longer present. No abnormally enhancing lesions are noted.
--- NOTE | 2017-07-21 14:33 | PN ---
Subjective Date of Service: 07/21/17 Interval History: Still has left-sided jaw pain but it is getting better. Afebrile, diffuse joint pain that is about baseline for her. She has a diffuse headache, no nausea , vision changes. Family History: Unchanged from Admission Social History: Unchanged from Admission Past Medical History: Unchanged from Admission Objective Active Medications: Acetaminophen (Tylenol Tab*) 650 mg PO Q4H PRN PRN Reason: FEVER/PAIN Albuterol (Ventolin 2.5 Mg/3 Ml Neb.Lidia*) 2.5 mg INH Q4H PRN PRN Reason: SOB/WHEEZING Ascorbic Acid (Vitamin C Tab*) 500 mg PO DAILY [facility] Last Admin: 07/21/17 08:25 Dose: 500 mg Baclofen (Lioresal Tab*) 10 mg PO BID [facility] Last Admin: 07/21/17 08:25 Dose: 10 mg Docusate Sodium (Colace Cap*) 100 mg PO BID [facility] Last Admin: 07/21/17 08:25 Dose: 100 mg Ferrous Sulfate (Ferrous Sulfate Tab*) 325 mg PO DAILY [facility] Last Admin: 07/21/17 08:25 Dose: 325 mg Heparin Sodium (Porcine) (Heparin Flush Picc/Ml/Cvc(*)) 0 ml IV FLUSH 0600, 1800 [facility] PRN Reason: Protocol Last Admin: 07/21/17 06:14 Dose: 1 ml Levothyroxine Sodium (Synthroid Tab*) 75 mcg PO 0600 [facility] Last Admin: 07/21/17 06:14 Dose: 75 mcg Magnesium Hydroxide (Milk Of Magnesia Liq*) 30 ml PO DAILY [facility] Last Admin: 07/21/17 10:52 Dose: Not Given Methylphenidate HCl (Concerta Er Tab*) 36 mg PO DAILY [facility] Last Admin: 07/21/17 08:25 Dose: 36 mg Morphine Sulfate (Morphine Inj (Syringe)*) 4 mg IV Q4H PRN PRN Reason: PAIN Last Admin: 07/21/17 10:14 Dose: 4 mg Multivitamins/Minerals (Theragran/Minerals Tab*) 1 tab PO DAILY [facility] Last Admin: 07/21/17 08:25 Dose: 1 tab Mupirocin (Bactroban 2 % Oint*) 1 applic TOPICAL BID [facility] Last Admin: 07/21/17 08:24 Dose: 1 applic Omeprazole (Prilosec Cap*) 20 mg PO DAILY [facility] Last Admin: 07/21/17 08:25 Dose: 20 mg Ondansetron HCl (Zofran Inj*) 4 mg IV Q6H PRN PRN Reason: NAUSEA Last Admin: 07/19/17 13:27 Dose: 4 mg Oxybutynin Chloride (Ditropan Tab*) 5 mg PO QAM [facility] Last Admin: 07/21/17 08:25 Dose: 5 mg Oxybutynin Chloride (Ditropan Tab*) 7.5 mg PO QPM [facility] Last Admin: 07/20/17 18:18 Dose: 7.5 mg Oxycodone/Acetaminophen (Percocet 5/325 Tab*) 1 tab PO Q4H PRN PRN Reason: PAIN - MODERATE Last Admin: 07/20/17 11:11 Dose: 1 tab Polyethylene Glycol/Electrolytes (Miralax*) 17 gm PO DAILY [facility] Last Admin: 07/21/17 10:53 Dose: Not Given Polyethylene Glycol/Electrolytes (Miralax*) 17 gm PO DAILY PRN PRN Reason: CONSTIPATION Prednisone (Deltasone Tab*) 40 mg PO DAILY [facility] Vilazodone HCl (Viibryd (Nf)) 40 mg PO DAILY [facility] Last Admin: 07/21/17 08:25 Dose: 40 mg Vital Signs - 8 hr 07/21/17 07/21/17 07/21/17 07:31 08:00 10:14 Temperature 97.3 F Pulse Rate 73 Respiratory 18 18 16 Rate Blood Pressure 110/66 (mmHg) O2 Sat by Pulse 100 100 Oximetry 07/21/17 10:20 Temperature Pulse Rate 74 Respiratory 14 Rate Blood Pressure (mmHg) O2 Sat by Pulse 100 Oximetry Oxygen Devices in Use Now: None Appearance: alert sitting up in chair Eyes: No Scleral Icterus Ears/Nose/Mouth/Throat: NL Teeth, Lips, Gums, - - able to open mouth about 2cm. good dentition Neck: NL Appearance and Movements; NL JVP Respiratory: Symmetrical Chest Expansion and Respiratory Effort Cardiovascular: NL Sounds; No Murmurs; No JVD Abdominal: NL Sounds; No Tenderness; No Distention Lymphatic: No Cervical Adenopathy Extremities: No Edema Skin: No Rash or Ulcers Neurological: Alert and Oriented x 3, - - LLE strength 3+, RLE strength 4+ Result Diagrams: 07/19/17 07:17 07/19/17 07:17 Additional Lab and Data: . Microbiology and Other Data: Microbiology 07/19/17 13:20 Nasal Screen MRSA (PCR)([facility]) - Final Nasal Mrsa Negative Assess/Plan/Problems-Billing . Assessment: 47 yo female with MS and now polymyositis of unclear etiology. . - Patient Problems (1) Myositis Current Visit: Yes Status: Acute Code(s): M60.9 - MYOSITIS, UNSPECIFIED SNOMED Code(s): 02729449 Comment: Though with a normal CK, I am suspicious even of this diagnosis. When it was found in her left hip after a recent surgery (breast reduction), infectious source was presumed and was treated with vancomycin. Now, however, with a second distant muscle involved, it is more suspicious for an autoimmune source. NADINE, however, is just weakly positive, and anti-kj is negative. Awaiting aldolase and CMV titers and myositis panel and anti-histone. I am starting a prednisone trial today to see if it responds to steroids. (2) Pulmonary emboli Current Visit: No Status: Acute Code(s): I26.99 - OTHER PULMONARY EMBOLISM WITHOUT ACUTE COR PULMONALE SNOMED Code(s): 29971733 Comment: Diagnosed in may; provoked post-op. Therapeutic on warfarin. (3) H/O multiple sclerosis Current Visit: No Status: Chronic Code(s): Z86.69 - PERSONAL HISTORY OF DIS OF THE NERVOUS SYS AND SENSE ORGANS SNOMED Code(s): 298084320 Comment: Not active at this time. Tecfidera on hold becuase of myositis (4) Neutropenia Current Visit: Yes Status: Acute Code(s): D70.9 - NEUTROPENIA, UNSPECIFIED SNOMED Code(s): 436242006 Comment: Now resolved after withholding vancomycin.
[2017-07-21] MEDS ORDERED: predniSONE TAB* 20 MG PO SCH (15:00)
[2017-07-21] MEDS: methylPREDNISolone SOD 40 MG* 1 ML VIAL IV SCH (18:04)
--- NOTE | 2017-07-21 18:30 | PN ---
Subjective - Subjective Date of Service: 07/21/17 - chief complaint: myositis History: Ms. Cisneros has had fluctuating discomfort in her jaw masseter region; she is now able to eat and pain is better; she remains weak in her lower extremities along the quad region although she is able to make limited transfers; she also remains generally weak from her MS Active Problems: Active Problems Myositis (Acute) M60.9 Though with a normal CK, I am suspicious even of this diagnosis. When it was found in her left hip after a recent surgery (breast reduction), infectious source was presumed and was treated with vancomycin. Now, however, with a second distant muscle involved, it is more suspicious for an autoimmune source. NADINE, however, is just weakly positive, and anti-awyne is negative. Awaiting aldolase and CMV titers and myositis panel and anti-histone. I am starting a prednisone trial today to see if it responds to steroids. Neutropenia (Acute) D70.9 Now resolved after withholding vancomycin. Current Medications: Current Medications Acetaminophen (Tylenol Tab*) 650 mg PO Q4H PRN PRN Reason: FEVER/PAIN Albuterol (Ventolin 2.5 Mg/3 Ml Neb.Lidia*) 2.5 mg INH Q4H PRN PRN Reason: SOB/WHEEZING Ascorbic Acid (Vitamin C Tab*) 500 mg PO DAILY [facility] Last Admin: 07/21/17 08:25 Dose: 500 mg Baclofen (Lioresal Tab*) 10 mg PO BID [facility] Last Admin: 07/21/17 08:25 Dose: 10 mg Docusate Sodium (Colace Cap*) 100 mg PO BID [facility] Last Admin: 07/21/17 08:25 Dose: 100 mg Ferrous Sulfate (Ferrous Sulfate Tab*) 325 mg PO DAILY [facility] Last Admin: 07/21/17 08:25 Dose: 325 mg Heparin Sodium (Porcine) (Heparin Flush Picc/Ml/Cvc(*)) 0 ml IV FLUSH 0600, 1800 [facility] PRN Reason: Protocol Last Admin: 07/21/17 18:04 Dose: 1 ml Levothyroxine Sodium (Synthroid Tab*) 75 mcg PO 0600 [facility] Last Admin: 07/21/17 06:14 Dose: 75 mcg Magnesium Hydroxide (Milk Of Magnesia Liq*) 30 ml PO DAILY [facility] Last Admin: 07/21/17 10:52 Dose: Not Given Methylphenidate HCl (Concerta Er Tab*) 36 mg PO DAILY [facility] Last Admin: 07/21/17 08:25 Dose: 36 mg Methylprednisolone Sodium Succinate (Solu-Medrol 40 Mg) 40 mg IV Q12H [facility] Last Admin: 07/21/17 18:04 Dose: 40 mg Morphine Sulfate (Morphine Inj (Syringe)*) 4 mg IV Q4H PRN PRN Reason: PAIN Last Admin: 07/21/17 16:51 Dose: 4 mg Multivitamins/Minerals (Theragran/Minerals Tab*) 1 tab PO DAILY [facility] Last Admin: 07/21/17 08:25 Dose: 1 tab Mupirocin (Bactroban 2 % Oint*) 1 applic TOPICAL BID [facility] Last Admin: 07/21/17 08:24 Dose: 1 applic Omeprazole (Prilosec Cap*) 20 mg PO DAILY [facility] Last Admin: 07/21/17 08:25 Dose: 20 mg Ondansetron HCl (Zofran Inj*) 4 mg IV Q6H PRN PRN Reason: NAUSEA Last Admin: 07/19/17 13:27 Dose: 4 mg Oxybutynin Chloride (Ditropan Tab*) 5 mg PO QAM [facility] Last Admin: 07/21/17 08:25 Dose: 5 mg Oxybutynin Chloride (Ditropan Tab*) 7.5 mg PO QPM [facility] Last Admin: 07/21/17 17:59 Dose: 7.5 mg Oxycodone/Acetaminophen (Percocet 5/325 Tab*) 2 tab PO Q4H PRN PRN Reason: PAIN - MODERATE Polyethylene Glycol/Electrolytes (Miralax*) 17 gm PO DAILY [facility] Last Admin: 07/21/17 10:53 Dose: Not Given Polyethylene Glycol/Electrolytes (Miralax*) 17 gm PO DAILY PRN PRN Reason: CONSTIPATION Vilazodone HCl (Viibryd (Nf)) 40 mg PO DAILY [facility] Last Admin: 07/21/17 08:25 Dose: 40 mg - Review of Systems Constitutional Symptoms: Yes: Fatigue, No: Weight Gain, Night Sweats, Unexplained Falls Dermatology: Normal: No HEENT: No Normal Eyes: Positive: Normal Thyroid: Positive: Normal Pulmonary: Positive: Normal Cardiology: Positive: Normal Musculoskeletal: Positive: Joint Stiffness Hematologic/Lymphatic: Positive: Use of Anticoagulant Neurology: Positive: Change in Walking, Unexplained Weakness Psychiatry: Positive: Adhedonia Allergic/Immunologic: Positive: Immunocompromise Home Medications: Home Medications Medication Instructions Recorded Confirmed Type Oxybutynin TAB* [Ditropan TAB*] 5 mg PO QAM 08/09/13 07/17/17 History Amantadine CAP* [Symmetrel CAP*] 100 mg PO BID 04/14/14 07/17/17 History Vilazodone (NF) [Viibryd (NF)] 40 mg PO DAILY 03/05/16 07/17/17 History Baclofen TAB* [Lioresal TAB*] 15 mg PO BID 08/10/16 07/17/17 History Levothyroxine TAB* [Synthroid 75 75 mcg PO DAILY 06/17/17 07/17/17 History MCG TAB*] Methylphenidate ER TAB* [Concerta 36 mg PO DAILY 06/17/17 07/17/17 History ER TAB*] Omeprazole CAP* [Prilosec CAP* 20 20 mg PO DAILY 06/17/17 07/17/17 History MG] Oxybutynin TAB* [Ditropan TAB*] 10 mg PO QPM 06/17/17 07/17/17 History Acetaminophen TAB* [Tylenol TAB*] 650 mg PO Q4H PRN tab 06/25/17 07/17/17 Rx Heparin FLUSH PICC/ML/CVC(*) 1 - 3 ml FLUSH 0600,1800 syringe 06/25/17 Rx Mupirocin 2% OINT* [Bactroban 2 % 1 applic TOPICAL BID tube 06/25/17 07/17/17 Rx Oint*] Vancomycin HCl in Sodium Chlor 1,000 mg IV Q12HR #40 inj 06/25/17 07/17/17 Rx [Vancomycin HCl 1-0.9 gm/200Ml-%] Dimethyl Fumarate(NF) 240 mg PO BID 07/17/17 07/17/17 History [Tecfidera(NF)] Dimethyl Fumarate(NF) 240 mg PO QPM 07/17/17 07/17/17 History [Tecfidera(NF)] Enoxaparin Sodium [Lovenox] 100 mg SUBCUT BID 07/17/17 07/17/17 History Oxycodone HCl 5 mg PO Q4HR PRN 07/17/17 07/17/17 History Potassium Chloride [K-Tab] 20 meq PO DAILY 07/17/17 07/17/17 History Sennosides [Senna Lax] 8.6 mg PO BID 07/17/17 07/17/17 History Warfarin Sodium [Coumadin] 4 mg PO DAILY 07/17/17 07/17/17 History Allergies: Allergies Allergy/AdvReac Type Severity Reaction Status Date / Time MS Bee Venom [Bee Venom] Allergy Severe See Comment Verified 07/16/17 23:52 MS Onion [Onion] Allergy Severe See Comment Verified 07/16/17 23:52 MS Aspirin [Aspirin] Allergy Intermediate Nausea Verified 07/16/17 23:52 MS Penicillins [PCN] Allergy Intermediate See Comment Verified 07/16/17 23:52 MS [place] [[place]] Allergy Unknown See Comment Verified 07/16/17 23:52 MS Sulfa Drugs [Sulfa Drugs] Allergy Unknown Unknown Verified 07/16/17 23:52 Reaction Details Objective - Vital Signs Vital Signs: Vital Signs 07/20/17 07/20/17 07/20/17 18:27 19:17 20:00 Temperature 98.2 F Pulse Rate 95 Respiratory 16 20 16 Rate Blood Pressure 124/55 (mmHg) O2 Sat by Pulse 99 Oximetry 07/20/17 07/20/17 07/21/17 21:12 23:49 03:43 Temperature 97.8 F 97.4 F Pulse Rate 91 99 92 Respiratory 16 16 17 Rate Blood Pressure 115/68 123/57 (mmHg) O2 Sat by Pulse 99 96 95 Oximetry 07/21/17 07/21/17 07/21/17 07:31 08:00 10:14 Temperature 97.3 F Pulse Rate 73 Respiratory 18 18 16 Rate Blood Pressure 110/66 (mmHg) O2 Sat by Pulse 100 100 Oximetry 07/21/17 07/21/17 07/21/17 10:20 15:29 16:51 Temperature 97.7 F Pulse Rate 74 95 Respiratory 14 20 18 Rate Blood Pressure 124/61 (mmHg) O2 Sat by Pulse 100 98 Oximetry 07/21/17 18:01 Temperature Pulse Rate Respiratory 16 Rate Blood Pressure (mmHg) O2 Sat by Pulse Oximetry - Intake and Output Intake and Output: Intake & Output 07/19/17 07/20/17 07/21/17 07/22/17 06:59 06:59 06:59 06:59 Intake Total 580 1365 820 230 Balance 580 1365 820 230 Intake: IV Fluids 485 NS (0.9%) 485 IVPB 300 Potassium 300 Oral 580 580 820 230 Other: Estimated Void Large Medium Medium # Bowel Movements 0 0 # Voids 0 1 1 1 ADLs: Meal Record Start: 07/17/17 00: 54 Freq: DAILY@0900,1400,1800 Status: Active Protocol: Created 07/17/17 00:54 System (Rec: 07/17/17 00:54 System MED-C26) Document 07/17/17 09:00 [id number] (Rec: 07/17/17 10:23 [id number] MED-C09) Document 07/17/17 13:56 [id number] (Rec: 07/17/17 13:59 [id number] MED-C09) Document 07/17/17 18:00 [id number] (Rec: 07/17/17 19:17 [id number] MED-C09) Document 07/18/17 09:00 [id number] (Rec: 07/18/17 10:14 [id number] MED-C09) Document 07/18/17 13:54 [id number] (Rec: 07/18/17 13:55 [id number] MED-C09) Document 07/18/17 18:00 [id number] (Rec: 07/18/17 19:18 [id number] MED-C09) Document 07/19/17 09:00 [id number] (Rec: 07/19/17 11:49 [id number] MED-C09) Document 07/19/17 13:56 [id number] (Rec: 07/19/17 13:57 [id number] MED-C09) Document 07/19/17 18:00 [id number] (Rec: 07/19/17 21:59 [id number] MED-C09) Document 07/20/17 08:58 [id number] (Rec: 07/20/17 08:58 MED-M11) Document 07/20/17 09:00 [id number] (Rec: 07/20/17 14:00 [id number] MED-C11) Document 07/20/17 18:00 [id number] (Rec: 07/20/17 18:58 [id number] MED-C11) Document 07/21/17 14:00 [id number] (Rec: 07/21/17 14:20 [id number] MED-C11) Intake and Output Start: 07/17/17 00: 54 Freq: DAILY@0600,1400,2200 Status: Active Protocol: Created 07/17/17 00:54 System (Rec: 07/17/17 00:54 System MED-C26) Document 07/17/17 05:30 [id number] (Rec: 07/17/17 05:30 [id number] MED-C26) Document 07/17/17 13:59 [id number] (Rec: 07/17/17 13:59 [id number] MED-C09) Document 07/17/17 22:00 [id number] (Rec: 07/17/17 22:51 [id number] MED-C09) Document 07/18/17 05:32 [id number] (Rec: 07/18/17 05:34 [id number] MEDL-C02) Document 07/18/17 13:54 [id number] (Rec: 07/18/17 13:55 [id number] MED-C09) Document 07/18/17 22:00 [id number] (Rec: 07/18/17 22:11 [id number] MED-C09) Document 07/19/17 04:35 [id number] (Rec: 07/19/17 04:35 [id number] MEDL-C02) Document 07/19/17 13:56 [id number] (Rec: 07/19/17 13:57 [id number] MED-C09) Document 07/19/17 22:00 [id number] (Rec: 07/19/17 22:06 [id number] MED-C09) Document 07/20/17 20:09 [id number] (Rec: 07/20/17 20:12 [id number] MED-C11) Document 07/21/17 03:54 [id number] (Rec: 07/21/17 03:56 [id number] MEDL-C01) Document 07/21/17 14:00 [id number] (Rec: 07/21/17 14:20 [id number] MED-C11) - Physical Exam General Physical Exam Comment: No acute distress; sitting up and eating Eye Exam: bilateral: EOMI Head: Yes Normocephalic Thyroid Function: Clinically Euthyroid Lungs and Chest: Yes: Chest Expansion Full, Chest Expansion Symetrica, Percussion Note Resonant Heart Rate and Rhythm: Normal JVP: Not Elevated Jamison Beat: Non Displaced Additional Cardiovascular: Yes: Jamison Beat not Displaced, Normal Heart Sounds - Rheumotological System Additional Musculoskeletal: Muscle Tenderness - Extremities Posterior Tibial Pulse: Bilateral Normal Dorsalis Pedis Pulses: Bilateral Normal Limbs: Abnormal Power - Quads 4/5 strength, triceps 4/5 - Neuro Psychiatric: Normal Speech: Normal Results - Results Lab Results: Laboratory Results - last 24 hr 07/17/17 07/17/17 07/20/17 05:40 19:30 14:38 Cyclic Citrull Peptide <15.6 Anti-Nuclear Antibody 2.0 H NADINE Interpretation See comment WAYNE-1 Antibody <0.2 SS-A/Ro Antibody 0.2 SS-B/La Antibody <0.2 Sm (Alvarez) IgG Ab, Quant <0.2 Scl-70 Scleroderma Ab <0.2 Anti-ds DNA IgG Ab <12.3 U1-nRNP Antibody <0.2 Complement C3 108 Complement C4 30 Assessment - Problem List Assessment: Patient Problems Myositis (Acute) Neutropenia (Acute) Asthma (Acute) DNR (do not resuscitate) (Acute) DVT prophylaxis (Acute) DVT prophylaxis (Acute) Elevated TSH (Acute) Full code status (Acute) History of recurrent pneumonia (Acute) Left hip pain (Acute) Low urine output (Acute) Multiple sclerosis (Acute) Pulmonary emboli (Acute) Status post breast reduction (Acute) Surgical wound infection (Acute) Transaminitis (Acute) UTI (urinary tract infection) (Acute 04/14/14) Weakness (Acute) Constipation (Chronic) Depression (Chronic) H/O multiple sclerosis (Chronic) Plan: Possible myositis: resolved per MRI of the quad region today; however patient remains generally weak. She may have an underlying viral process or perhaps there is an autoimmune process related to her MS. Agree with a trial of steroids. Continue bedside PT. If she is improved today, consider conversion to prednisone 40mg daily; follow up as an outpatient with me in 1 or 2 weeks to followup myositis panel and taper steroids. MS: per above History of blood clots: on AC Positive NADINE: weakly positive and so far other connective tissue disease serologies are negative.
[2017-07-21] MEDS: oxyCODONE/Acetamin 5/325 MG* TAB PO PRN (20:37)
[2017-07-21] MEDS: Ondansetron INJ* 2 MG/ML VIAL IV PRN (20:41)
[2017-07-22] MEDS: oxyCODONE/Acetamin 5/325 MG* TAB PO PRN ×2 (03:55→20:52)
[2017-07-22] MEDS: Levothyroxine TAB* 75 MCG TAB PO SCH (05:50)
[2017-07-22] MEDS: methylPREDNISolone SOD 40 MG* 1 ML VIAL IV SCH ×2 (05:50→18:29)
[2017-07-22 06:46] LABS: ABS Basophils 0 10^3/ul (0-0.2); ABS Eosinophils 0 10^3/ul (0-0.6); ABS Lymphocytes 0.6 10^3/ul (1.0-4.8); ABS Monocytes 0.1 10^3/ul (0-0.8); ABS Neutrophils 4.3 10^3/ul (1.5-7.7); ABS Nucleated RBC 0 10^3/ul; Eosinophil % 0 % (0-6); Hematocrit 38 % (35-47); Hemoglobin 12.8 g/dl (12.0-16.0); Lymphocyte % 11.5 % (25-47); Mean Corpuscular HGB Conc 34 g/dl (31-36); Mean Corpuscular Hemoglobin 29 pg (27-31); Mean Corpuscular Volume 86 fL (80-97); Mean Platelet Volume 9 um3 (7.4-10.4); Nucleated Red Blood Cells % 0.2; Platelet Count 346 10^3/ul (150-450); Red Cell Distribution Width 15 % (10.5-15)
[2017-07-22 06:58] LABS: EGFR Non-African American 75.5 (>60)
[2017-07-22] MEDS: Baclofen TAB* 10 MG PO SCH ×2 (09:28→20:51)
[2017-07-22] MEDS: Ferrous Sulfate TAB* 325 MG PO SCH (09:28)
[2017-07-22] MEDS: Methylphenidate ER TAB* 18 MG PO SCH (09:28)
[2017-07-22] MEDS: Omeprazole CAP* 20 MG PO SCH (09:28)
[2017-07-22] MEDS: Ascorbic Acid TAB* 500 MG PO SCH (09:29)
[2017-07-22] MEDS: Magnesium Hydroxide LIQ* 30 ML UDC PO SCH (09:29)
[2017-07-22] MEDS: Docusate CAP* 100 MG PO SCH ×2 (09:29→20:51)
[2017-07-22] MEDS: Mupirocin 2% OINT* TUBE TOPICAL SCH ×2 (09:29→22:23)
[2017-07-22] MEDS: Oxybutynin TAB* 5 MG PO SCH ×2 (09:29→18:29)
[2017-07-22] MEDS: PTO: Vilazodone (NF) 40 MG TAB PO SCH (09:29)
[2017-07-22] MEDS: Multivitamins/Minerals TAB PO SCH (09:29)
[2017-07-22] MEDS: Polyethylene Glycol 3350* 17 GM PACKET PO SCH (09:29)
[2017-07-22] MEDS: DIMETHYL FUMARATE 240 MG PO SCH ×2 (14:11→22:22)
--- NOTE | 2017-07-22 15:59 | PN ---
Subjective Date of Service: 07/22/17 Interval History: Feels better today. Able to open her mouth wide enough to eat pasta and potatoes. She is in better spirits and her friend is visiting Family History: Unchanged from Admission Social History: Unchanged from Admission Past Medical History: Unchanged from Admission Objective Active Medications: Acetaminophen (Tylenol Tab*) 650 mg PO Q4H PRN PRN Reason: FEVER/PAIN Albuterol (Ventolin 2.5 Mg/3 Ml Neb.Lidia*) 2.5 mg INH Q4H PRN PRN Reason: SOB/WHEEZING Ascorbic Acid (Vitamin C Tab*) 500 mg PO DAILY [facility] Last Admin: 07/22/17 09:29 Dose: 500 mg Baclofen (Lioresal Tab*) 10 mg PO BID [facility] Last Admin: 07/22/17 09:28 Dose: 10 mg Dimethyl Fumarate (Tecfidera(Nf)) 240 mg PO BEDTIME [facility] Last Admin: 07/22/17 14:11 Dose: 240 mg Docusate Sodium (Colace Cap*) 100 mg PO BID [facility] Last Admin: 07/22/17 09:29 Dose: 100 mg Ferrous Sulfate (Ferrous Sulfate Tab*) 325 mg PO DAILY [facility] Last Admin: 07/22/17 09:28 Dose: 325 mg Heparin Sodium (Porcine) (Heparin Flush Picc/Ml/Cvc(*)) 0 ml IV FLUSH 0600, 1800 [facility] PRN Reason: Protocol Last Admin: 07/22/17 05:51 Dose: 1 ml Levothyroxine Sodium (Synthroid Tab*) 75 mcg PO 0600 [facility] Last Admin: 07/22/17 05:50 Dose: 75 mcg Magnesium Hydroxide (Milk Of Magnmichelle Liq*) 30 ml PO DAILY [facility] Last Admin: 07/22/17 09:29 Dose: Not Given Methylphenidate HCl (Concerta Er Tab*) 36 mg PO DAILY [facility] Last Admin: 07/22/17 09:28 Dose: 36 mg Methylprednisolone Sodium Succinate (Solu-Medrol 40 Mg) 40 mg IV Q12H [facility] Last Admin: 07/22/17 05:50 Dose: 40 mg Morphine Sulfate (Morphine Inj (Syringe)*) 4 mg IV Q4H PRN PRN Reason: PAIN Last Admin: 07/21/17 16:51 Dose: 4 mg Multivitamins/Minerals (Theragran/Minerals Tab*) 1 tab PO DAILY [facility] Last Admin: 07/22/17 09:29 Dose: 1 tab Mupirocin (Bactroban 2 % Oint*) 1 applic TOPICAL BID [facility] Last Admin: 07/22/17 09:29 Dose: 1 applic Omeprazole (Prilosec Cap*) 20 mg PO DAILY [facility] Last Admin: 07/22/17 09:28 Dose: 20 mg Ondansetron HCl (Zofran Inj*) 4 mg IV Q6H PRN PRN Reason: NAUSEA Last Admin: 07/21/17 20:41 Dose: 4 mg Oxybutynin Chloride (Ditropan Tab*) 5 mg PO QAM [facility] Last Admin: 07/22/17 09:29 Dose: 5 mg Oxybutynin Chloride (Ditropan Tab*) 7.5 mg PO QPM [facility] Last Admin: 07/21/17 17:59 Dose: 7.5 mg Oxycodone/Acetaminophen (Percocet 5/325 Tab*) 2 tab PO Q4H PRN PRN Reason: PAIN - MODERATE Last Admin: 07/22/17 03:55 Dose: 2 tab Polyethylene Glycol/Electrolytes (Miralax*) 17 gm PO DAILY [facility] Last Admin: 07/22/17 09:29 Dose: Not Given Polyethylene Glycol/Electrolytes (Miralax*) 17 gm PO DAILY PRN PRN Reason: CONSTIPATION Vilazodone HCl (Viibryd (Nf)) 40 mg PO DAILY [facility] Last Admin: 07/22/17 09:29 Dose: 40 mg Vital Signs - 8 hr 07/22/17 07/22/17 08:00 08:35 Pulse Rate 83 Respiratory 18 16 Rate O2 Sat by Pulse 95 95 Oximetry Oxygen Devices in Use Now: None Appearance: alert, well appearing Eyes: No Scleral Icterus Ears/Nose/Mouth/Throat: NL Teeth, Lips, Gums, - - able to open her mouth about 3 -4 cm Neck: NL Appearance and Movements; NL JVP Respiratory: Symmetrical Chest Expansion and Respiratory Effort Lymphatic: No Cervical Adenopathy Neurological: Alert and Oriented x 3 Result Diagrams: 07/22/17 05:48 07/22/17 05:48 Additional Lab and Data: . Microbiology and Other Data: Microbiology 07/19/17 13:20 Nasal Screen MRSA (PCR)([facility]) - Final Nasal Mrsa Negative Assess/Plan/Problems-Billing . Assessment: 47 yo female with MS and now polymyositis of unclear etiology. . - Patient Problems (1) Myositis Current Visit: Yes Status: Acute Code(s): M60.9 - MYOSITIS, UNSPECIFIED SNOMED Code(s): 39392000 Comment: Markedly improved today after one dose of solumedrol. With a normal CK, I am suspicious even of this diagnosis. When it was found in her left hip after a recent surgery (breast reduction), infectious source was presumed and was treated with vancomycin. Now, however, with a second distant muscle involved, it is more suspicious for an autoimmune source. NADINE, however, is just weakly positive, and anti-kj is negative. Awaiting aldolase and CMV titers and myositis panel and anti-histone. I'm planning to discharge her on solumedrol with follow up with Dr. Keller. (2) Pulmonary emboli Current Visit: No Status: Acute Code(s): I26.99 - OTHER PULMONARY EMBOLISM WITHOUT ACUTE COR PULMONALE SNOMED Code(s): 93427455 Comment: Diagnosed in may; provoked post-op. Therapeutic on warfarin. (3) H/O multiple sclerosis Current Visit: No Status: Chronic Code(s): Z86.69 - PERSONAL HISTORY OF DIS OF THE NERVOUS SYS AND SENSE ORGANS SNOMED Code(s): 747883507 Comment: Not active at this time. Tecfidera on hold becuase of myositis (4) Neutropenia Current Visit: Yes Status: Acute Code(s): D70.9 - NEUTROPENIA, UNSPECIFIED SNOMED Code(s): 679659424 Comment: Now resolved after withholding vancomycin. Status and Disposition: discussed plan with case management--needs PT evaluation, then home with [facility] PT and will get solumedrol in the infusion center.
[2017-07-22] MEDS ORDERED: DIMETHYL FUMARATE 240 MG PO SCH (21:00)
[2017-07-22] MEDS ORDERED: Fluconazole 100 MG TAB* TAB PO ONE (23:11)
[2017-07-23] MEDS: Levothyroxine TAB* 75 MCG TAB PO SCH (05:14)
[2017-07-23] MEDS: methylPREDNISolone SOD 40 MG* 1 ML VIAL IV SCH (05:14)
[2017-07-23 08:18] VITALS: BP 132/71
[2017-07-23] MEDS: Magnesium Hydroxide LIQ* 30 ML UDC PO SCH (09:18)
[2017-07-23] MEDS: Docusate CAP* 100 MG PO SCH (09:18)
[2017-07-23] MEDS: Polyethylene Glycol 3350* 17 GM PACKET PO SCH (09:18)
[2017-07-23] MEDS: Methylphenidate ER TAB* 18 MG PO SCH (09:56)
[2017-07-23] MEDS: Ferrous Sulfate TAB* 325 MG PO SCH (09:56)
[2017-07-23] MEDS: Ascorbic Acid TAB* 500 MG PO SCH (09:57)
[2017-07-23] MEDS: Multivitamins/Minerals TAB PO SCH (09:57)
[2017-07-23] MEDS: Baclofen TAB* 10 MG PO SCH (09:57)
[2017-07-23] MEDS: PTO: Vilazodone (NF) 40 MG TAB PO SCH (09:57)
[2017-07-23] MEDS: Oxybutynin TAB* 5 MG PO SCH (09:57)
[2017-07-23] MEDS: Omeprazole CAP* 20 MG PO SCH (09:57)
[2017-07-23] MEDS: Mupirocin 2% OINT* TUBE TOPICAL SCH (09:58)
[2017-07-23] MEDS ORDERED: DIMETHYL FUMARATE 240 MG PO SCH (10:00)
[2017-07-23] MEDS: Ondansetron INJ* 2 MG/ML VIAL IV PRN (12:10)
[2017-07-23] MEDS: oxyCODONE/Acetamin 5/325 MG* TAB PO PRN (12:10)
== END 2017-07-23 15:00 | disposition home health service (06) | DRG 545 ==
LOC: ED 19:07 → MED 23:30
PROVIDERS: ADMIT Internal Medicine; ATTEND Internal Medicine
PROC: 5A09357 Assistance with Respiratory Ventilation, Less than 24 Consecutive Hours, Continuous Positive Airway Pressure (ICD-10-PCS; principal; 2017-07-17)
DX: M33.20 Polymyositis, organ involvement unspecified (principal); I26.99 Other pulmonary embolism without acute cor pulmonale; D70.9 Neutropenia, unspecified; I82.412 Acute embolism and thrombosis of left femoral vein; G35 Multiple sclerosis; K21.9 Gastro-esophageal reflux disease without esophagitis; N32.81 Overactive bladder; N32.89 Other specified disorders of bladder; F32.9 Major depressive disorder, single episode, unspecified; F41.9 Anxiety disorder, unspecified; F43.10 Post-traumatic stress disorder, unspecified; Z66 Do not resuscitate; E07.9 Disorder of thyroid, unspecified; J45.909 Unspecified asthma, uncomplicated; G47.30 Sleep apnea, unspecified; M17.0 Bilateral primary osteoarthritis of knee; M19.041 Primary osteoarthritis, right hand; G43.909 Migraine, unspecified, not intractable, without status migrainosus; R25.2 Cramp and spasm; R21 Rash and other nonspecific skin eruption; R94.6 Abnormal results of thyroid function studies; K59.09 Other constipation; Z87.01 Personal history of pneumonia (recurrent); Z91.030 Bee allergy status; Z88.0 Allergy status to penicillin; Z88.2 Allergy status to sulfonamides; Z88.8 Allergy status to other drugs, medicaments and biological substances; Z91.018 Allergy to other foods; Z83.3 Family history of diabetes mellitus; Z91.5 Personal history of self-harm
CPT/HCPCS: 36415; 70487; 71046; 80048; 80053; 80202; 81003; 81015; 82085; 82330; 82550; 83516; 83520; 83605; 83615; 83735; 84443; 85025; 85060; 85610; 85652; 86038; 86140; 86147; 86160; 86200; 86225; 86235; 86431; 86644; 86645; 87040; 87497; 87641; 93005; 93306; 94660; A9270-GY; A9579; C8929; J2270; J2405; J2920; J2997; J3475; J3480; J7512; Q9967

== ENCOUNTER 2017-08-23 14:51 | Inpatient (IN) | payer MEDICAID, MEDICARE ==
--- OUTSIDE RECORDS SUMMARY | 2017-08-23 15:32 | XMS REPORT ---
:1970 External Reference #:[id number] Author Organization [facility] Address [address] [address] [place] [address] Phone [phone] Care Team Providers Name Role Phone Chiki Chandler MD Primary Care Physician Unavailable Payers Type Date Identification Payment Provider Subscriber Numbers Health Maintenance Effective: Policy Number: [facility] Medicare Dina Perez (HMO) 06/22/2014 [id number] Solutions Group Number: [id number] [address] [address] PayID: [id number] [place] [address] Medigap Part B Policy Number: [id number] Medicaid Dina Cisneros Group Name: 1 1 [address] PayID: [id number] [place] [address] Commercial Effective: 06/07/2015 Policy Number: 80% [facility] Dina Cisneros Expires: 03/03/2017 PayID: [id number] [address] Problems Date Description Provider Status Onset: 11/30/2014 Multiple sclerosis Shelley Barahona M.D. Active Onset: 11/30/2014 Depressive disorder Shelley Barahona M.D. Active Onset: 02/12/2017 Other sleep disorders Jennifer Soto MD Active Family History Date Family Member(s) Problem(s) Comments Father Sleep Apnea Father Asthma Father Heart Disease Father spina bifida Father Breast Cancer paternal grandmother Father Stomach Cancer paternal grandfather and heart disease Mother Diabetes blind from diabetes Mother Heart Disease Mother stent in heart Mother maternal grandfather-diabetes Siblings brother-nephrotic syndrome,addict,COPD Social History Type Date Description Comments Marital Status Lives With Alone Occupation Disabled ETOH Use Denies alcohol use Smoking Patient has never smoked Recreational Drug Use Denies Drug Use Daily Caffeine occassional coffee 1 cup caffeinated. Daily Caffeine consumes chocolate occasionally Daily Caffeine iced tea and soda occassionally Exercise Type/Frequency Does not exercise Allergies, Adverse Reactions, Alerts Date Description Reaction Status Severity Comments 11/23/2012 Penicillin Nausea and Vomiting active 11/23/2012 Codeine active 11/23/2012 Sulfa Antibiotics active 11/06/2016 Aspirin active 02/12/2017 Interferon Beta-1B active suicidal Medications Medication Date Status Form Strength Qnty SIG Indications Ordering Provider Potassium 08/21 Active Unsure of dose Owen Keller Oxycodone 08/21 Active Unsure Of Dose Owen Keller Prednisone 08/21 Active Tablets 10mg 90tab take 2 s tabs Arianna, daily for M.D. 2 weeks then 1 tab daily for 2 weeks then stop Depend Undergarments 08/07 Active Misc 120un use four Shelley its times Jun, daily or M.D. as needed - size M-L - pull-ups Amantadine HCL 12/12 Active Tablets 100mg 30tab 1 by Shelley Riojas stephanie mouth Jun, twice M.D. daily Tecfidera 12/10 Active Capsules 240mg 60cap 1 tab by Shelley Glo DR stephanie Barahona, twice a M.D. day Viibryd Active Tablets 40mg 30tab 1 by Unknown / s mouth every day Methylphenidate HCL Active Tablets 36mg 1 tab po Unknown ER /0000 ER daily Aleve Active Capsules 220mg 2 by Unknown /0000 mouth twice a day as needed Oxybutynin Chloride Active Tablets 5mg 90tab take 1 Shelley s tablet by toshia Barahona M.DGlo every morning and 2 every evening Polyethylene Glycol Active Packet 3350NF as needed Unknown 3350 /0000 Ondansetron Active Tablets 4mg dissolve Unknown /0000 Dispers one tablet orally every 6 hours as needed for nausea. Hydrocortisone Active Cream 2.5% apply to Unknown /0000 affected area twice daily Omeprazole Active Tablets 20mg 1 by /0000 DR pope every day Levothyroxine Sodium Active Tablets 75mcg one tab Unknown once daily by mouth in the am Warfarin Sodium Active Tablets 4mg as directed by Dr Ramesh Em Active Unsure Of Unknown / Dose Prednisone 07/31 Hx Tablets 10mg 60tab take 4 s tabs by Arianna - mouth M.DGlo 08/21 daily for 4 days then 3 tabs daily for 4 days then 2 tabs for 4 days then 1 tab for 4 days then d/c Prednisone 07/03 Hx Tablets 10mg 28tab use as G35 Shelley Riojas s directed Jun - by mouth M.DGlo 07/20 Baclofen 11/07 Hx Tablets 10mg 90tab 1 tab G35 Margo s twice MD Meron - daily 07/27 states she is taking 15 MG bid Methylprednisolone 04/30 Hx Solution 1000mg 3unit 1000mg iv G3Scott Riojas Sodiumsuccinate Rec s once a Jun, - day x 3 M.D. leave IV in for 3 days. Gabapentin 04/06 Hx Tablets 600mg 60tab 1-2 tabs 340 Shelley Riojas s by mouth Jun, - every day M.D. 11/29 at bedtime as directed Tecfidera Starter 12/10 Hx Misc 120&2 1unit Shelley Riojas 40mg s Teresita Barahona M.DGlo 05/12 Detrol 11/23 Hx Tablets 2mg 60tab 1-2 tabs Shelley Riojas s by mouth Jun, - every day M.D. 11/23 directed Pristiq Hx Tablets 100mg 30tab 1 po qd Unknown / ER 24HR s - 12/20 Abilify Hx Tablets 5mg 30tab 1 po qd Unknown / s - 12/20 Concerta Hx Tablets 27mg 30tab 1 po qd Unknown /0000 ER s - 12/20 Abilify Hx Tablets 10mg 1 by Unknown / mouth - every day 07/02 Sumatriptan 00 Hx Tablets 100mg 1 tab Unknown Succinate /0000 twice a - day max 2 02/11 days week prn Rizatriptan Benzoate Hx Tablets 10mg 1 by Unknown /0000 Dispers mouth - twice a 07/29 day needed headache max 2 days a week Rexulti Hx Tablets 2mg 1 by Unknown /0000 mouth - every day 07/29 [place] Carbonate Hx Capsules 300mg 1 po at Unknown /0000 hs - 07/20 Ibuprofen Hx Tablets 600mg 1 PO Unknown /0000 every 6 - hrs prn 08/21 Nellie Allergy Hx Tablets 180mg 1 by Unknown /0000 mouth - every day 07/29 pr Vital Signs Date Vital Result Comment 08/21/2017 Height 65.5 inches 5'5.50" Weight 197.00 lb per pt Heart Rate 65 /min BP Systolic 104 mmHg BP Diastolic 72 mmHg Body Temperature 97.0 F O2 % BldC Oximetry 95 % BMI (Body Mass Index) 32.3 kg/m2 07/30/2017 Height 65.5 inches 5'5.50" Weight 200.00 lb per pt Heart Rate 84 /min BP Systolic Sitting 120 mmHg BP Diastolic Sitting 84 mmHg Respiratory Rate 14 /min Body Temperature 96.6 F BMI (Body Mass Index) 32.8 kg/m2 04/30/2017 Height 65 inches 5'5" Heart Rate 92 /min BP Systolic Sitting 110 mmHg BP Diastolic Sitting 72 mmHg Respiratory Rate 16 /min 04/21/2017 Height 65 inches 5'5" Weight 195.00 lb per pt Heart Rate 90 /min reg BP Systolic Sitting 126 mmHg Lue, reg cuff BP Diastolic Sitting 74 mmHg Lue, reg cuff Respiratory Rate 16 /min O2 % BldC Oximetry 94 % on Ra BMI (Body Mass Index) 32.4 kg/m2 02/26/2017 Height 65 inches 5'5" Weight 195.00 lb Heart Rate 77 /min BP Systolic Sitting 110 mmHg BP Diastolic Sitting 78 mmHg Respiratory Rate 16 /min BMI (Body Mass Index) 32.4 kg/m2 02/12/2017 Heart Rate 71 /min BP Systolic Sitting 104 mmHg BP Diastolic Sitting 80 mmHg Respiratory Rate 20 /min Pain Level 4 O2 % BldC Oximetry 98 % 11/06/2016 Heart Rate 60 /min BP Systolic Sitting 108 mmHg BP Diastolic Sitting 72 mmHg Respiratory Rate 14 /min 07/03/2016 Height 65.5 inches 5'5.50" Weight 180.00 lb Heart Rate 74 /min BP Systolic Sitting 108 mmHg BP Diastolic Sitting 76 mmHg Respiratory Rate 14 /min BMI (Body Mass Index) 29.5 kg/m2 02/21/2016 Heart Rate 60 /min BP Systolic Sitting 118 mmHg BP Diastolic Sitting 82 mmHg Respiratory Rate 14 /min 11/08/2015 Heart Rate 104 /min BP Systolic Sitting 104 mmHg BP Diastolic Sitting 68 mmHg Respiratory Rate 14 /min 04/26/2015 Heart Rate 84 /min BP Systolic Sitting 104 mmHg BP Diastolic Sitting 72 mmHg Respiratory Rate 16 /min 11/30/2014 Heart Rate 68 /min BP Systolic Sitting 108 mmHg BP Diastolic Sitting 70 mmHg Respiratory Rate 16 /min 04/06/2014 Height 65.5 inches 5'5.50" Weight 140.00 lb Heart Rate 100 /min BP Systolic Sitting 108 mmHg BP Diastolic Sitting 80 mmHg Respiratory Rate 16 /min BMI (Body Mass Index) 22.9 kg/m2 12/29/2013 Height 65.5 inches 5'5.50" Weight 145.00 lb Heart Rate 108 /min BP Systolic Sitting 100 mmHg BP Diastolic Sitting 70 mmHg Respiratory Rate 16 /min BMI (Body Mass Index) 23.8 kg/m2 05/12/2013 Heart Rate 70 /min BP Systolic Sitting 120 mmHg BP Diastolic Sitting 60 mmHg Respiratory Rate 18 /min 02/04/2013 Height 65.5 inches 5'5.50" Weight 175.00 lb Heart Rate 84 /min BP Systolic Sitting 106 mmHg BP Diastolic Sitting 68 mmHg Respiratory Rate 16 /min BMI (Body Mass Index) 28.7 kg/m2 11/23/2012 Heart Rate 96 /min BP Systolic Sitting 102 mmHg BP Diastolic Sitting 70 mmHg Respiratory Rate 18 /min Results Test Date Test Result H/L Range Note CBC Auto Diff 07/29/2017 White Blood Count 11.5 10^3/uL High 3.5-10.8 1 Red Blood Count 4.86 10^6/uL 4.0-5.4 1 Hemoglobin 13.9 g/dL 12.0-16.0 1 Hematocrit 42 % 35-47 1 Mean Corpuscular Volume 86 fL 80-97 1 Mean Corpuscular Hemoglobin 29 pg 27-31 1 Mean Corpuscular HGB Conc 33 g/dL 31-36 1 Red Cell Distribution Width 15 % 10.5-15 1 Platelet Count 321 10^3/uL 150-450 1 Mean Platelet Volume 8 um3 7.4-10.4 1 Abs Neutrophils 8.0 10^3/uL High 1.5-7.7 1 Abs Lymphocytes 2.1 10^3/uL 1.0-4.8 1 Abs Monocytes 1.3 10^3/uL High 0-0.8 1 Abs Eosinophils 0.1 10^3/uL 0-0.6 1 Abs Basophils 0.1 10^3/uL 0-0.2 1 Abs Nucleated RBC 0 10^3/uL 1 Granulocyte % 69.3 % 38-83 1 Lymphocyte % 18.0 % Low 25-47 1 Monocyte % 11.5 % High 1-9 1 Eosinophil % 0.5 % 0-6 1 Basophil % 0.7 % 0-2 1 Nucleated Red Blood Cells % 0.1 1 Urinalysis Profile 03/04/2016 Urine Color Yellow Urine Appearance Cloudy Urine Specific [place] 1.026 1.010-1.030 Urine pH 6.0 5-9 Urine Urobilinogen Negative Negative Urine Ketones Negative Negative Urine Protein Negative Negative Urine Leukocytes Negative Negative Urine Blood 1+ Negative Urine Nitrite Positive Negative Urine Bilirubin Negative Negative Urine Glucose Negative Negative Urine White Blood Cell Trace(0-5/hpf) Absent Urine Red Blood Cell 2+(6-10/hpf) Absent Urine Bacteria 1+ Absent Urine Squamous Epithelial Cell Present Absent Urine Culture And Sensitivities 09/19/2015 Urine Culture SEE RESULT BELOW 2 Ua Routine 09/19/2015 Urine Color Tiny Urine Appearance Turbid Urine Specific [place] 1.030 1.010-1.030 Urine pH 5.0 5-9 Urine Urobilinogen Negative Negative Urine Ketones Negative Negative Urine Protein 1+(30 mg/dL) Negative Urine Leukocytes 3+ Negative Urine Blood 2+ Negative Urine Nitrite Negative Negative Urine Bilirubin Negative Negative Urine Glucose Negative Negative Urine White Blood Cell 3+(>20/hpf) Absent Urine Red Blood Cell 3+(>10/hpf) Absent Urine Bacteria Absent Absent Urine Squamous Epithelial Cell Present Absent 1 Left Shift Imm Grans 2 SEE RESULT BELOW Name: DINA CISNEROS : [address]: Shelley Barahona MD Acct: [id number] Unit: [id number] AGE: 45 Location: [facility] Re09/19/15 SEX: F Status: REG REF SPEC: [id number] JOVANA: 09/19/[address]: Shelley Barahona MD REQ: [id number] RECD: 09/19/15 STATUS: COMP _ SOURCE: URINE SPDESC: ORDERED: Urine Culture Procedure Result Reported Site Urine Culture Final 09/22/15- 743 ML Organism 1 STAPHYLOCOCCUS LUGDENENSIS [place] Count >100,000 (Many) CFU/ML 1. STAPHYLOCOCCUS LUGDENENSIS M.I.C. RX --------- ------ Penicillin <=0.03 S Gentamicin <=0.5 S Linezolid 2 S Nitrofurantoin <=16 S Oxacillin 0.5 S * Quinupristin/Dalfopristin <=0.25 S Rifampin <=0.5 S Tetracycline <=1 S Doxycycline - Deduced S * Minocycline - Deduced S Tigecycline <=0.12 S Vancomycin <=0.5 S Imipenem-Deduced S * Ampicillin/Sulbactam-Deduced S Cefazolin-Deduced S * These antibiotics are not available in the [facility] Formulary Contact the Microbiology Department for any additional antibiotic reporting. * ML - MAIN LAB ([facility]) . END OF REPORT * ML=Testing performed at Main Lab DEPARTMENT OF PATHOLOGY, [address] [place] [address] Reyes Medeiros M.D. Director [facility] # [id number] Procedures Date CPT Code Description Status 07/19/2017 37472 EKG, Interpretation Only Completed 07/17/2017 44849 ECHO Transthorasic Realtime 2D W Doppler & Color Completed Flow Hosp 04/07/2017 02632 Polysomnography Sleep Staging 4+ Parameters Completed 03/02/2013 08781 Visual Evoked Potential Test HORTICULTURAL FARMWORKER Completed 02/04/2013 85162 Visual Evoked Potential Test HORTICULTURAL FARMWORKER Completed Encounters Type Date Location Provider CPT E/M Dx Office Visit 07/30/2017 [facility] Jamal Wells, 39412 M60.9 1:40p Infectious Diseases MYrn Z86.19 Z95.828 M60.052 Office Visit 07/23/2017 12:55p [facility] [address] M33.20 Hospitalists G35 I27.82 Office Visit 07/22/2017 12:54p [facility] [address] M33.20 Hospitalists G35 I27.82 Office Visit 07/21/2017 12:50p [facility] [address] M60.08 Hospitalists G35 I27.82 N32.89 Office Visit 07/21/2017 7:00a [facility], 15857 M60.9 Lexii Weaver G35 R79.82 R76.0 Office Visit 07/20/2017 12:51p [facility],[place] [address] M60.08 Hospitalists G35 I27.82 N32.89 Office Visit 07/20/2017 7:00a [facility], 68014 M60.9 Lexii Weaver G35 R79.82 R76.0 Office Visit 07/19/2017 12:48p [facility] [place] [address] M60.08 Hospitalists G35 I27.82 N32.89 Office Visit 07/18/2017 12:47p [facility] Chirag Alexeimichael, 67014 M60.08 Assoc, Hospitalists Owen G35 I27.82 N32.89 Office Visit 07/18/2017 7:00a [facility], 55442 M60.9 Lexii Weaver G35 R79.82 R76.0 D70.9 Office Visit 07/17/2017 7:00a [facility], 21549 M60.9 Lexii Weaver G35 D70.9 Office Visit 07/17/2017 11:07a [facility] Jamal Wells, 83425 R25.2 Infectious Diseases Araseli.Fidelina R68.84 R21 D72.819 Office Visit 07/17/2017 [facility] 12501 M60.08 Hospitalists Owen G35 I27.82 N32.89 Office Visit 07/16/2017 8:00a [facility], VALUE STREAM COACH 25428 R68.84 M26.623 D70.9 Office Visit 07/15/2017 10:00a [facility] Anali Leone, VALUE STREAM COACH 00215 R68.84 D70.9 Office Visit 06/26/2017 8:00a [facility] Talisha Fabian M.D. 22272 I26.99 M60.052 G35 Z98.890 Office Visit 06/24/2017 9:07a [facility] LALI Rodriguez 06310 M79.652 C.M.A. Office Visit 06/23/2017 3:10p [facility] Rudolph Kitchen 89933 M79.652 Infectious Diseases Owen Wells M60.052 M72.9 M54.5 I82.402 I26.99 Office Visit 06/23/2017 9:06a [facility] 13511 M60.052 C.M.A. Office Visit 06/22/2017 8:33a [facility] [address] M25.552 C.M.A. Office Visit 06/21/2017 3:22p [facility] [place] [address] M60.9 C.M.A. M25.552 Office Visit 06/20/2017 3:09p [facility] Rudolph Kitchen 98861 T81.31xA Infectious Diseases Owen Wells M79.652 M25.552 I82.402 I26.99 R50.9 Office Visit 06/20/2017 2:59p [facility] [address] M60.9 C.M.A. M25.552 Office Visit 06/19/2017 2:27p [facility] [address] I82.412 C.M.A. M25.552 M54.5 Office Visit 04/30/2017 2:00p [facility] Shelley Barahona, [address] G35 Services Of Lexii Weaver F32.9 Z79.899 Office Visit 04/21/2017 1:30p [facility] [place] [address] G47.33 Services Of Case Management Assistant Office Visit 03/31/2017 11:06a [facility], [place] [address] G35 Hospitalists LALI Mcdowell N39.0 F32.9 Office Visit 03/30/2017 1:50p [facility] [address] G35 Z79.899 Office Visit 03/29/2017 11:04a [facility] Angi Perales N.P. 46764 G35 Hospitalists N39.0 F32.9 Office Visit 02/26/2017 12:45p [facility] Shelley Barahona, 39308 G35 Services Of Case Management Assistant M.D. Z79.899 Office Visit 02/12/2017 2:00p [facility] [place] [address] R06.81 Services Of Case Management Assistant G47.10 R06.02 R12 R41.840 R51 Office Visit 11/06/2016 2:00p [facility] Shelley Barahona, 55297 G35 Services Of Case Management Assistant M.D. F32.9 Z79.899 Office Visit 07/03/2016 2:15p [facility] Shelley Barahona, 31537 G35 Services Of Case Management Assistant M.D. F32.9 Z79.899 Office Visit 03/06/2016 1:01p [facility], Anali Leone, 35627 G35 Hospitalists VALUE STREAM COACH Office Visit 03/06/2016 2:31p [facility] Sreekanth Quinonez, 45[address] G3Scott Weaver R53.1 Z79.899 Office Visit 03/05/2016 1:01p [facility],jamaal Perales, N.P. 05572 G35 Hospitalists F32.8 Office Visit 03/04/2016 2:29p [facility] Sreekanth Quinonez, 93995 G3Scott Weaver R53.1 Z79.899 Office Visit 03/04/2016 1:00p [facility],jamaal Perales N.P. 96459 G35 Hospitalists Office Visit 02/21/2016 2:00p [facility] Shelley Barahona, 59016 G35 Services Of Case Management Assistant M.D. R53.1 F32.9 Office Visit 11/08/2015 2:45p [facility] Shelley Barahona, 67998 G35 Services Of Lexii Weaver Z79.899 Office Visit 07/31/2015 1:24p [facility] [address] G35 Office Visit 07/31/2015 2:31p [facility] Angi Perales N.P. 13795 R53.1 Hospitalists G35 H53.2 Office Visit 07/30/2015 1:24p [facility] [address] G35 H53.2 Office Visit 07/30/2015 2:29p [facility],jamaal Perales N.P. 11334 G35 Hospitalists R53.1 H53.2 Office Visit 07/29/2015 1:23p [facility] [address] G35 H53.2 Office Visit 07/29/2015 2:28p [facility],jamaal Jacob, 53802 G35 Hospitalists N.P. R53.1 H53.2 Office Visit 07/28/2015 1:22p [facility] [address] G35 H53.2 Office Visit 07/28/2015 2:27p [facility],jamaal Jacob, 84582 R53.1 Hospitalists N.P. H53.2 G35 Office Visit 07/27/2015 2:15p [facility] [address] G35 Hospitalists R53.1 H53.2 Office Visit 04/26/2015 2:30p [facility] Shelley Barahona, 74520 G35 Services Of Lexii Weaver F32.9 Office Visit 11/30/2014 3:45p [facility] Shelley Barahona, 19174 340 Services Of Lexii Weaver 311 Office Visit 04/17/2014 11:18a [facility] [address] 780.79 Hospitalists 340 311 300.00 Office Visit 04/16/2014 11:18a [facility] [address] 340 Hospitalists 780.79 311 300.00 Office Visit 04/16/2014 2:55p [facility] Shelley Barahona, 06177 340 Services Of Case Management Assistant M.D. 599.0 780.79 311 Office Visit 04/15/2014 11:17a [facility] [place] [address] 780.79 Hospitalists 340 599.0 311 Office Visit 04/15/2014 2:53p [facility] Sreekanth Quinonez, 44509 340 Services Of Case Management Assistant M.D. 599.0 780.79 311 Office Visit 04/14/2014 11:16a [facility],jamaal Perales N.P. 04948 780.79 Hospitalists 340 599.0 311 Office Visit 04/06/2014 1:45p [facility] Shelley Barahona, 90259 340 Services Of Case Management Assistant M.D. 311 Office Visit 12/29/2013 2:45p [facility] Shelley Barahona, 99565 340 Services Of Case Management Assistant M.D. Office Visit 11/27/2013 3:13p [facility] Ugo Rivera M.D. 21664 340 Services Of Case Management Assistant 377.30 781.2 296.23 Office Visit 11/26/2013 3:13p [facility] Ugo Rivera M.D. 43188 340 Services Of Case Management Assistant 377.30 781.2 296.23 Office Visit 11/25/2013 3:11p [facility] Ugo Rivera M.D. 44480 340 Services Of Case Management Assistant 377.30 781.2 296.23 Office Visit 11/15/2013 2:17p [facility] [place] [address] 478.6 Hospitalists 786.1 311 340 Office Visit 11/15/2013 2:15p [facility],jamaal Moraes, 25608 478.6 Hospitalists D.O. 786.1 311 340 Office Visit 11/14/2013 2:14p [facility] Jaiden Paige, 09137 292.2 Assoc, Hospitaljudi Weaver 333.99 340 Office Visit 11/13/2013 2:14p [facility] Jaiden Paige, 70397 292.2 Assoc, Hospitaljudi Weaver 333.99 340 Office Visit 11/12/2013 2:13p [facility], 61776 292.2 Assoc, Hospitaljudi Weaver 333.99 340 Office Visit 11/11/2013 2:12p [facility] Rachid Sanderson M.D. 15894 292.2 Hospitalists 333.99 340 Office Visit 11/10/2013 2:10p [facility], Rachid Sanderson M.D. 01343 292.2 Hospitalists 333.99 340 Office Visit 10/28/2013 2:37p [facility] Gelacio Jung M.D. 59169 780.79 Hospitalists 340 595.0 Office Visit 10/26/2013 2:33p [facility], Angi Perales N.P. 29563 780.79 Hospitalists 340 595.0 Office Visit 10/19/2013 12:20p [facility], [place] [address] 340 Hospitalists 728.87 311 784.51 Office Visit 10/18/2013 12:19p [facility], [place] [address] 340 Hospitalists 728.87 311 784.51 Office Visit 10/18/2013 1:26p [facility] Sreekanth Quinonez, 20247 340 Services Of [facility] Owen 728.87 784.59 Office Visit 10/17/2013 1:24p [facility] Katheryn Mcwilliams M.D. 24370 340 Services Of [facility] 728.87 784.59 Office Visit 10/17/2013 12:18p [facility], Bello Rick, 28771 340 Hospitalists N.P. 728.87 311 Office Visit 08/12/2013 4:42p [facility], Sofya Jacob, 39697 780.79 Hospitalists N.P. 340 784.51 Office Visit 08/11/2013 4:41p [facility] Fabian Felix, 86034 780.79 Hospitalists N.P. 340 784.51 368.2 Office Visit 08/10/2013 4:40p [facility], Fabian Felix, 67528 340 Hospitalists N.P. 780.79 784.51 368.2 Office Visit 08/09/2013 9:00a [facility] Shelley Barahona, 16433 340 Services Of Case Management Assistant M.D. 784.51 780.79 Office Visit 08/09/2013 4:40p [facility], [place] [address] 340 Hospitalists 780.79 784.51 368.2 Office Visit 05/12/2013 1:15p [facility] Shelley Barahona, 18344 340 Services Of Case Management Assistant M.D. Office Visit 05/04/2013 8:12a [facility] Shanelle Webb, 98086 595.0 Hospitalists M.D. 340 311 Office Visit 05/02/2013 8:12a [facility] Gelacio Jung M.D. 43013 595.0 Hospitalists 340 311 Office Visit 02/22/2013 11:45a [facility] Shelley Barahona, 77707 340 Services Of Case Management Assistant M.D. 368.2 Office Visit 02/06/2013 10:07a [facility] Shelley Barahona, 54916 340 Services Of Case Management Assistant M.D. Office Visit 02/05/2013 10:06a [facility] Shelley Barahona, 84377 340 Services Of Case Management Assistant M.D. Office Visit 02/04/2013 10:45a [facility] Shelley Barahona, 15134 340 Services Of Case Management Assistant M.D. 377.30 Office Visit 11/23/2012 11:15a [facility] Shelley Barahona, 68514 340 Services Of Case Management Assistant M.D. Office Visit 11/03/2012 7:04a [facility] Talisha Fabian M.D. 54528 340 Hospitalists 782.0 780.79 V15.88 Office Visit 11/01/2012 3:05p [facility] Katheryn Mcwilliams M.D. 16446 340 Services Of Case Management Assistant 728.85 782.0 311 Office Visit 11/01/2012 7:04a [facility] [address] 340 Hospitalists 782.0 780.79 V15.88 Office Visit 03/16/2012 2:01p [facility],pc Angi Perales, N.P. 88843 340 Hospitalists 493.02 466.0 Office Visit 03/15/2012 3:57p [facility] Shelley Barahona, 91861 340 Services Of [facility] Owen Office Visit 03/13/2012 2:00p [facility] Shanelle Webb, 65088 493.02 Assoc,pc Hospitalists Owen 466.0 340 Plan of Care Future Appointment(s):10/05/2017 11:20 am - Torin Keller M.D. at [facility]09/04/2017 9:00 am - Thalia Cisneros DNP, RN, LIME TRIMMER- at [facility]09/04/2017 12:40 pm - Torin Keller M.D. at [facility]10/29/2017 1:45 pm - Shelley Barahona M.D. at [facility]08/21/2017 - Torin Keller M.D.M60.9 Myositis , unspecifiedFollow up:Follow up in 3 weeks or sooner if bmvturG56.82 Elevated C -reactive protein (CRP)R76.0 Raised antibody qfdxtR55.899 Other [facility] ( current) drug bfhjdlaZ83.52 [facility] (current) use of systemic steroids
--- OUTSIDE RECORDS SUMMARY | 2017-08-23 15:33 | XMS REPORT ---
:1970 External Reference #:[id number] Author Organization [employer] Address [address] [place] [address] Phone [phone] Care Team Providers Name Role Phone Chiki Chandler MD Primary Care Physician Unavailable Payers Type Date Identification Payment Provider Subscriber Numbers Health Maintenance Effective: Policy Number: [facility] Medicare Dina Perez (HMO) 06/22/2014 [id number] [employer] Group Number: [id number] [address] [address] PayID: [id number] [place] [address] Medigap Part B Policy Number: [id number] Medicaid Dina Cisneros Group Name: 1 1 [address] PayID: [id number] [place] [address] Commercial Effective: 06/07/2015 Policy Number: 80% [employer] Dina Cisneros Expires: 03/03/2017 PayID: [id number] [address] Problems Date Description Provider Status Onset: 11/30/2014 [...] Form Strength Qnty SIG Indications Ordering Provider Depend Undergarments 08/07 Active Misc 120un use four Shelley its times Jun, daily or M.D. as needed - size M-L - pull-ups Amantadine HCL 12/12 Active Tablets 100mg 30tab 1 by Shelley Riojas stephanie mouth Jun, twice M.D. daily Tecfidera 12/10 Active Capsules 240mg 60cap 1 tab by Shelley Riojas DR stephanie Barahona, twice a M.D. day Viibryd Active Tablets 40mg 30tab 1 by Unknown /0000 s mouth every day Methylphenidate HCL Active Tablets 36mg 1 tab po Unknown ER /0000 ER daily Aleve Active Capsules 220mg 2 by Unknown /0000 mouth twice a day as needed Oxybutynin Chloride Active Tablets 5mg 90tab take 1 Shelley . s tablet by toshia Barahona M.D. every morning and 2 every evening Polyethylene Glycol Active Packet 3350NF as needed Unknown 3350 /0000 Ondansetron Active Tablets 4mg dissolve Unknown /0000 Dispers one tablet orally every 6 hours as needed for nausea. Hydrocortisone Active Cream 2.5% apply to Unknown /0000 affected area twice daily Ibuprofen Active Tablets 600mg 1 PO Unknown /0000 every 6 hrs prn Omeprazole Active Tablets 20mg 1 by Unknown /0000 DR pope every day Levothyroxine Sodium Active Tablets 75mcg one tab Unknown /0000 once daily by mouth in the am Warfarin Sodium Active Tablets 4mg as Unknown /[address] Chandler Prednisone 07/03 Hx Tablets 10mg 28tab use as G35 Shelley Riojas s directed Jun, - by mouth M.D. 07/20 Baclofen 11/07 Hx Tablets 10mg 90tab [...] Misc 120&2 1unit Shelley Riojas 40mg s Jun - M.D. 05/12 Detrol 11/23 Hx Tablets 2mg 60tab 1-2 tabs Shelley Riojas s by mouth Jun, - every day M.D. 11/23 directed Pristiq Hx Tablets 100mg 30tab 1 po qd Unknown /0000 ER 24HR s - 12/20 Abilify 00 Hx Tablets 5mg 30tab 1 po qd Unknown /0000 s - 12/20 Concerta Hx Tablets 27mg 30tab 1 po qd Unknown /0000 ER s - 12/20 Abilify Hx Tablets 10mg 1 by Unknown /0000 mouth - every day 07/02 Sumatriptan Hx Tablets 100mg 1 tab Unknown Succinate /0000 twice a - day max 2 02/11 days week prn Rizatriptan Benzoate Hx Tablets 10mg 1 by Unknown /0000 Dispers mouth - twice a 07/29 day needed headache max 2 days a week Rexulti Hx Tablets 2mg 1 by Unknown /0000 mouth - every day 07/29 [place] Carbonate 00/ Hx Capsules 300mg 1 po at Unknown /0000 hs - 07/20 Nellie Allergy Hx Tablets 180mg 1 by Unknown /0000 mouth - every day 07/29 pr Vital Signs Date Vital Result Comment 07/30/2017 Height 65.5 inches 5'5.50" Weight 200.00 [...] Color Yellow Urine Appearance Cloudy Urine Specific [place] 1.026 1.010-1.030 Urine pH 6.0 5-9 Urine [...] Color Tiny Urine Appearance Turbid Urine Specific [place] 1.030 1.010-1.030 Urine pH 5.0 5-9 Urine [...] [address]: Shelley Barahona MD Acct: [id number] Unit: [id number] AGE: 45 Location: [facility] Re09/19/15 SEX: F Status: REG REF SPEC: [id number] JOVANA: 09/19/15-[address]: Shelley Barahona MD REQ: [id number] RECD: 09/19/15 STATUS: COMP _ SOURCE: URINE SPDESC: ORDERED: Urine Culture Procedure Result Reported Site Urine Culture Final 09/22/15- 743 ML Organism 1 STAPHYLOCOCCUS LUGDENENSIS [place] Count >100,000 (Many) CFU/ML 1. STAPHYLOCOCCUS LUGDENENSIS [...] These antibiotics are not available in the [facility] Formulary Contact the Microbiology Department for any additional antibiotic reporting. * ML - MAIN LAB (PSC1) . END OF REPORT * ML=Testing performed at Main Lab DEPARTMENT OF PATHOLOGY, [address] [place] [address] Reyes Medeiros M.D. 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 Rudolph Wells, 48730 M60.9 1:40p Infectious Diseases Owen Z86.19 Z95.828 Office Visit 07/17/2017 11:07a [facility] Rudolph Wells, 52521 R25.2 Infectious Diseases Owen R68.84 R21 D72.819 Office Visit 06/26/2017 8:00a [facility] Talisha Fabian M.D. 77925 I26.99 M60.052 G35 Z98.890 Office Visit 06/24/2017 9:07a [facility] 12529 M79.652 C.M.A. Office Visit 06/23/2017 3:10p [facility] Rudolph Kitchen 13053 M79.652 Infectious Kendall Wells M.D. M60.052 M72.9 M54.5 I82.402 I26.99 Office Visit 06/23/2017 9:06a [facility] 58677 M60.052 C.M.A. Office Visit 06/22/2017 8:33a [facility] [place] [address] M25.552 C.M.A. Office Visit 06/21/2017 3:22p [facility] [place] [address] M60.9 C.M.A. M25.552 Office Visit 06/20/2017 3:09p [facility] Jamal Kitchen 35444 T81.31xA Infectious Diseases Owen Wells M79.652 M25.552 I82.402 I26.99 R50.9 Office Visit 06/20/2017 2:59p [facility] [place] [address] M60.9 C.M.A. M25.552 Office Visit 06/19/2017 2:27p [facility] [place] [address] I82.412 C.M.A. M25.552 M54.5 Office Visit 04/30/2017 2:00p [facility] Shelley Barahona 27893 G35 Services Of Lab Head M.DGlo F32.9 Z79.899 Office Visit 04/21/2017 1:30p Pul[facility] [address] G47.33 Services Of Lab Head Office Visit 03/31/2017 11:06a [facility], [place] 18711 G35 Hospitalists LALI Mcdowell N39.0 F32.9 Office Visit 03/30/2017 1:50p [facility] [address] G35 Z79.899 Office Visit 03/29/2017 11:04a [facility], Angi Perales N.PGlo 64334 G35 Hospitalists N39.0 F32.9 Office Visit 02/26/2017 12:45p [facility] Shelley Barahona 56532 G35 Services Of Lab Head M.D. Z79.899 Office Visit 02/12/2017 2:00p [facility] [place] [address] R06.81 Services Of Lab Head G47.10 R06.02 R12 R41.840 R51 Office Visit 11/06/2016 2:00p [facility] Shelley Barahona 89412 G35 Services Of [facility] M.D. F32.9 Z79.899 Office Visit 07/03/2016 2:15p [facility] Shelley Barahona 07001 G35 Services Of [facility] M.D. 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 14756 G35 Hospitalists F32.8 Office Visit 03/04/2016 2:29p [facility] Sreekanth Quinonez, 55127 G3Scott Weaver R53.1 Z79.899 Office Visit 03/04/2016 1:00p [facility],jamaal Perales, N.P. 27087 G35 Hospitalists Office Visit 02/21/2016 2:00p [facility] Shelley Barahona, 75088 G35 Services Of Lexii Weaver R53.1 F32.9 Office Visit 11/08/2015 2:45p [facility] Shelley Barahona, 54491 G35 Services Of Lexii Weaver Z79.899 Office Visit 07/31/2015 1:24p [facility] [address] G35 Office Visit 07/31/2015 2:31p [facility] Angi Perales, N.P. 16718 R53.1 Hospitalists G35 H53.2 Office Visit 07/30/2015 1:24p [facility] [address] G35 H53.2 Office Visit 07/30/2015 2:29p [facility] Angi Perales, N.P. 85095 G35 Hospitalists R53.1 H53.2 Office Visit 07/29/2015 2:28p [facility] Sofya Jacob, 02463 G35 Hospitalists N.P. R53.1 H53.2 Office Visit 07/29/2015 1:23p [facility] [place] [address] G35 H53.2 Office Visit 07/28/2015 1:22p [facility] [address] G35 H53.2 Office Visit 07/28/2015 2:27p [facility] Sofya Jacob, 60592 R53.1 Hospitalists N.P. H53.2 G35 Office Visit 07/27/2015 2:15p [facility] [address] G35 Hospitalists R53.1 H53.2 Office Visit 04/26/2015 2:30p [facility] Shelley Barahona, 46008 G35 Services Of Lab [facility] M.D. F32.9 Office Visit 11/30/2014 3:45p [facility] Shelley Barahona, 57540 340 Services Of Lab [facility] M.D. 311 Office Visit 04/17/2014 11:18a [facility] [address] 780.79 Hospitalists 340 311 300.00 Office Visit 04/16/2014 11:18a [facility],[place] [address] 340 Hospitalists 780.79 311 300.00 Office Visit 04/16/2014 2:55p [facility] Shelley Barahona, 99310 340 Services Of [facility] M.D. 599.0 780.79 311 Office Visit 04/15/2014 11:17a [facility] [address] 780.79 Hospitalists 340 599.0 311 Office Visit 04/15/2014 2:53p [facility] Sreekanth Quinonez, 59118 340 Services Of [facility] M.D. 599.0 780.79 311 Office Visit 04/14/2014 11:16a [facility] Angi Perales, N.P. 78929 780.79 Hospitalists 340 599.0 311 Office Visit 04/06/2014 1:45p [facility] Shelley Barahona, 54577 340 Services Of [facility] M.D. 311 Office Visit 12/29/2013 2:45p [facility] Shelley Barahona, 27732 340 Services Of [facility] M.D. Office Visit 11/27/2013 3:13p [facility] Ugo Rivera M.D. 68049 340 Services Of [facility] 377.30 781.2 296.23 Office Visit 11/26/2013 3:13p [facility] Ugo Rivera M.D. 82833 340 Services Of [facility] 377.30 781.2 296.23 Office Visit 11/25/2013 3:11p [facility] Ugo Rivera M.D. 62751 340 Services Of [facility] 377.30 781.2 296.23 Office Visit 11/15/2013 2:17p [facility], [place] [address] 478.6 Hospitalists 786.1 311 340 Office Visit 11/15/2013 2:15p [facility], Mitch Moraes, 78654 478.6 Hospitalists D.OGlo 786.1 311 340 Office Visit 11/14/2013 2:14p [facility] Jaiden Paige, 55712 292.2 Assoc, Hospitaljudi Weaver 333.99 340 Office Visit 11/13/2013 2:14p [facility] Jaiden Paige, 40230 292.2 Assoc, Hospitalists Owen 333.99 340 Office Visit 11/12/2013 2:13p [facility] Jaiden Paige, 34373 292.2 Assoc, Hospitalists Owen 333.99 340 Office Visit 11/11/2013 2:12p [facility], Rachid Sanderson M.D. 95486 292.2 Hospitalists 333.99 340 Office Visit 11/10/2013 2:10p [facility], Rachid Sanderson M.D. 00905 292.2 Hospitalists 333.99 340 Office Visit 10/28/2013 2:37p [facility], Gelacio Jung M.D. 26677 780.79 Hospitalists 340 595.0 Office Visit 10/26/2013 2:33p [facility] Angi Perales N.PGlo 80721 780.79 Hospitalists 340 595.0 Office Visit 10/19/2013 12:20p [facility] [address] 340 Hospitalists 728.87 311 784.51 Office Visit 10/18/2013 1:26p [facility] Sreekanth Quinonez, 67308 340 Services Of Lexii Weaver 728.87 784.59 Office Visit 10/18/2013 12:19p [facility] [address] 340 Hospitalists 728.87 311 784.51 Office Visit 10/17/2013 12:18p [facility] Bello Prabhjot, 71362 340 Hospitalists N.P. 728.87 311 Office Visit 10/17/2013 1:24p [facility] Katheryn Mcwilliams M.D. 83740 340 Services Of Lab [facility] 728.87 784.59 Office Visit 08/12/2013 4:42p [facility] Sofya Jacob, 98257 780.79 Hospitalists N.P. 340 784.51 Office Visit 08/11/2013 4:41p [facility] Fabian Felix, 84210 780.79 Hospitalists N.P. 340 784.51 368.2 Office Visit 08/10/2013 4:40p [facility] Fabian Felix, 40520 340 Hospitalists N.P. 780.79 784.51 368.2 Office Visit 08/09/2013 9:00a [facility] Shelley Barahona, 51776 340 Services Of Lab [facility] M.DGlo 784.51 780.79 Office Visit 08/09/2013 4:40p [facility] [address] 340 Hospitalists 780.79 784.51 368.2 Office Visit 05/12/2013 1:15p [facility] Shelley Barahona, 01289 340 Services Of Lab Head M.D. Office Visit 05/04/2013 8:12a [facility] Shanelle Webb, 29820 595.0 Hospitalists M.D. 340 311 Office Visit 05/02/2013 8:12a [facility] Gelacio Jung M.D. 88145 595.0 Hospitalists 340 311 Office Visit 02/22/2013 11:45a [facility] Shelley Barahona, 41802 340 Services Of [facility] M.D. 368.2 Office Visit 02/06/2013 10:07a [facility] Shelley Barahona, 77222 340 Services Of [facility] M.D. Office Visit 02/05/2013 10:06a [facility] Shelley Barahona, 13984 340 Services Of [facility] M.D. Office Visit 02/04/2013 10:45a [facility] Shelley Barahona, 15708 340 Services Of [facility] M.D. 377.30 Office Visit 11/23/2012 11:15a [facility] Shelley Barahona, 11840 340 Services Of Lab [facility] M.D. Office Visit 11/03/2012 7:04a [facility], Talisha Fabian M.D. 12595 340 Hospitalists 782.0 780.79 V15.88 Office Visit 11/01/2012 3:05p [facility] Katheryn Mcwilliams M.D. 97278 340 [facility] 728.85 782.0 311 Office Visit 11/01/2012 7:04a [facility], [place] [address] 340 Hospitalists 782.0 780.79 V15.88 Office Visit 03/16/2012 2:01p [facility], Angi Perales N.Kayden 26741 340 Hospitalists 493.02 466.0 Office Visit 03/15/2012 3:57p [facility] Shelley Barahona, 10357 340 Services Of Lab [facility] M.D. Office Visit 03/13/2012 2:00p [facility] Shanelle Jon, 31977 493.02 Assoc, Hospitaljudi Weaver 466.0 340 Plan of Care Future Appointment(s):09/04/2017 12:40 pm - Torin Keller M.D. at [facility]10/29/2017 1:45 pm - Shelley Barahona M.D. at [facility]07/30/2017 - Jamal Wells M.D.M60.9 Myositis, unspecifiedComments:resolved, following up with Dr KellerZ86.19 Personal history of other infectious and parasitic tteohefwH62.828 Presence of other vascular implants and graftsComments:RUE PICC removed in office without complication
[2017-08-23] MEDS ORDERED: NS 0.9% 1000 ML* 2,000 ML IV ONE (15:50)
--- NOTE | 2017-08-23 16:15 | RAD ---
INDICATION: Weakness COMPARISON: July 21, 2017 TECHNIQUE: An AP portable view obtained at 1600 hours is submitted. FINDINGS: Bones/Soft Tissues: There are no acute bony findings. Cardiomediastinal: The cardiomediastinal silhouette is normal. Lungs: There are no infiltrates. Pleura: There are no pleural effusions. Other: None IMPRESSION: NO ACTIVE DISEASE.
[2017-08-23 16:21] LABS: ABS Basophils 0.1 10^3/ul (0-0.2); ABS Eosinophils 0 10^3/ul (0-0.6); ABS Lymphocytes 0.3 10^3/ul (1.0-4.8); ABS Monocytes 0.1 10^3/ul (0-0.8); ABS Neutrophils 8.4 10^3/ul (1.5-7.7); ABS Nucleated RBC 0 10^3/ul; Eosinophil % 0 % (0-6); Hematocrit 39 % (35-47); Lymphocyte % 3.9 % (25-47); Mean Corpuscular HGB Conc 34 g/dl (31-36); Mean Corpuscular Hemoglobin 29 pg (27-31); Mean Corpuscular Volume 86 fL (80-97); Mean Platelet Volume 8 um3 (7.4-10.4); Nucleated Red Blood Cells % 0.1; Platelet Count 290 10^3/ul (150-450); Red Blood Count 4.49 10^6/ul (4.0-5.4); Red Cell Distribution Width 16 % (10.5-15)
[2017-08-23 16:30] LABS: INR 2.27 (0.77-1.02)
[2017-08-23 16:35] LABS: EGFR Non-African American 89.3 (>60)
[2017-08-23] MEDS ORDERED: Ondansetron INJ* 2 MG/ML VIAL IV ONE (18:11)
[2017-08-23] MEDS ORDERED: Morphine INJ* 4 MG/ML 1 ML SYRINGE (NEW SYRINGE VERSION) IV ONE (18:11)
[2017-08-23] MEDS ORDERED: NS 0.9% 1000 ML* 1,000 ML BOLUS SCH (18:15)
[2017-08-23 18:24] LABS: Urine Appearance Clear; Urine Blood Negative (Negative); Urine Color Straw; Urine Ketones Negative (Negative); Urine Protein Negative (Negative); Urine Specific Gravity 1.006 (1.010-1.030); Urine Urobilinogen Negative (Negative)
[2017-08-23] MEDS ORDERED: Iohexol 350* (CONTRAST) 500 ML MDV IV ONE (18:33)
--- NOTE | 2017-08-23 19:10 | RAD ---
INDICATION: Fall. Intracranial injury COMPARISON: CT brain March 29, 2017 TECHNIQUE: Noncontrast axial source images were acquired from the skull base to the vertex. FINDINGS: Ventricles/sulci: There is cortical atrophy with compensatory dilatation of the CSF spaces. Brain parenchyma: There is periventricular and subcortical white matter change compatible with chronic ischemia. Intracranial hemorrhage:None. Extra-axial spaces: There are no abnormal extra axial fluid collections or evidence of extra-axial mass. Calvarium: There is no calvarial fracture or other calvarial abnormality. Scalp: There is no evidence of scalp or extracalvarial soft tissue abnormality. Paranasal sinuses/mastoid: The paranasal sinuses and mastoid air cells are clear. Other: None. IMPRESSION: CORTICAL ATROPHY WITH CHRONIC MICROVASCULAR ISCHEMIC CHANGES. NO ACUTE FINDINGS.
--- NOTE | 2017-08-23 19:15 | RAD ---
INDICATION: Back pain. Injury. COMPARISON: CT lumbar spine June 17, 2017 TECHNIQUE: Noncontrast axial source images was performed from the thoracolumbar junction to the sacrum. Coronal and and sagittal reformatted images were generated. FINDINGS: Vertebrae: There is no fracture or acute focal bony lesion. Alignment: The lumbar vertebrae are normally aligned. Central Canal: There are no significant CT abnormalities of the central canal or foramina. MR imaging is a more sensitive method to evaluate the canal and foramina. Intervertebral disc spaces: The disc spaces are maintained. There is minor circumferential bulging at L5-S1. Soft tissues: The paravertebral soft tissues are normal. Other: None IMPRESSION: NO ACUTE CT FINDINGS OR INTERVAL CHANGES. WIDE CANAL AND FORAMINAL PATENCY.
--- NOTE | 2017-08-23 19:16 | RAD ---
INDICATION: Neck injury COMPARISON: CT cervical spine March 29, 2017 TECHNIQUE: Noncontrast axial source images was performed from the skull base to the thoracic inlet. Coronal and and sagittal reformatted images were generated. FINDINGS: Vertebrae: There is no fracture or acute focal bony lesion. Alignment: The craniocervical junction appears normal. The cervical vertebrae are normally aligned. Central Canal: There are no significant CT abnormalities of the central canal or foramina. MR imaging is a more sensitive method to evaluate the canal and foramina. Intervertebral disc spaces: There is moderate narrowing about C5-C6 with endplate sclerosis, uncinate process spurring, and posterior spondylitic ridge formation. Brain: The visualized brain appears unremarkable. Soft tissues: The visualized soft tissue elements of the neck are unremarkable. The prevertebral soft tissues appear normal. The lung apices are clear. IMPRESSION: MODERATE DEGENERATIVE DISEASE C5-C6. NO ACUTE FINDINGS
--- NOTE | 2017-08-23 19:16 | RAD ---
INDICATION: Fall. Chest pain. Short of breath. Recent treatment for pulmonary embolus. Evaluate for pulmonary embolus. COMPARISON: CTA chest June 20, 2017 TECHNIQUE: Axial source images were obtained from the thoracic inlet to the hemidiaphragms following administration of [address] angiographic technique was utilized. Coronal and sagittal reconstructed images were acquired. CHEST FINDINGS: Neck/thyroid: The visualized neck to include the thyroid appear normal. Chest wall: There are no acute abnormalities of the bony thorax or chest wall. There is no supraclavicular, infraclavicular, or axillary lymphadenopathy. Lungs : There are no pulmonary parenchymal masses or infiltrates. The pulmonary interstitium appears normal. There are no endobronchial lesions. Cardiomediastinal structures: There is no CT evidence of acute pulmonary embolic disease. Previously identified pulmonary emboli have undergone interval lysis. The heart is normal in size. There is no pericardial effusion. There is no evidence of aortic aneurysm or dissection. There is no mediastinal or hilar adenopathy. The esophagus appears normal. Pleura : There are no pleural-based masses or effusions. Other: None. IMPRESSION: NO CT EVIDENCE OF ACUTE PULMONARY EMBOLI. INTERVAL LYSIS OF PREVIOUSLY IDENTIFIED PULMONARY EMBOLI. LUNGS CLEAR.
--- NOTE | 2017-08-23 19:33 | RAD ---
INDICATION: Right ankle injury COMPARISON: July 14, 2008 TECHNIQUE: AP, lateral, and oblique views were obtained. FINDINGS: There is also soft tissue swelling with a tiny avulsion injury from the lateral malleolus. The age is indeterminate. There is minor osteoarthritis about the tibiotalar joint. No additional findings. IMPRESSION: TINY, AGE-INDETERMINATE AVULSION FRACTURE FROM THE LATERAL MALLEOLUS WITH ASSOCIATED SOFT TISSUE SWELLING.
--- NOTE | 2017-08-23 19:34 | RAD ---
INDICATION: Right knee injury COMPARISON: None TECHNIQUE: AP and lateral views were obtained. FINDINGS: The bony structures, joint spaces, and soft tissues are normal for age. IMPRESSION: NEGATIVE EXAMINATION
--- NOTE | 2017-08-23 19:34 | RAD ---
INDICATION: Right lower leg injury COMPARISON: None TECHNIQUE: AP and lateral views were obtained. FINDINGS: The bony structures, joint spaces, and soft tissues are normal for age. IMPRESSION: NEGATIVE EXAMINATION
--- NOTE | 2017-08-23 19:35 | RAD ---
INDICATION: Fall COMPARISON: None 2016 TECHNIQUE: A single AP view of the pelvis is submitted. FINDINGS: Osseous structures: Normal SI joints and symphysis: Intact Soft tissues: No soft tissue abnormalities Other: Residual contrast within the bladder from recent CT IMPRESSION: NEGATIVE EXAMINATION.
[2017-08-23] MEDS ORDERED: methylPREDNISolone SOD SUCC* 1000 MG ML VIAL IVPB ONE (20:58)
--- NOTE | 2017-08-23 21:18 | ED ---
Zulma Baez Gabriel, scribed for Faith Candelaria MD on 08/23/17 at 2102 . Progress - Progress Note Progress Note: This patient was signed out from Dr. Pinedo, pending disposition, awaiting CTs and Xrays. CTA Chest thorax reveals, per radiologist, NO CT EVIDENCE OF ACUTE PULMONARY EMBOLI. INTERVAL LYSIS OF PREVIOUSLY IDENTIFIED PULMONARY EMBOLI. LUNGS CLEAR. LE Xray reveals, per radiologist, negative examination Knee XRay reveals, per radiologist, negative examination Pelvis XR reveals, per radiologist, negative examination Ankle XR reveals, per radiologist, TINY, AGE-INDETERMINATE AVULSION FRACTURE FROM THE LATERAL MALLEOLUS WITH ASSOCIATED SOFT TISSUE SWELLING. CT L spine reveals, per radiologist, NO ACUTE CT FINDINGS OR INTERVAL CHANGES. WIDE CANAL AND FORAMINAL PATENCY. CT C spine reveals, per radiologist, MODERATE DEGENERATIVE DISEASE C5-C6. NO ACUTE FINDINGS CT Brain reveals, per radiologist, CORTICAL ATROPHY WITH CHRONIC MICROVASCULAR ISCHEMIC CHANGES. NO ACUTE FINDINGS. CXR reveals, per radiologist, no active disease ED physician has reviewed these radiology reports. We discussed patient care with Dr. Mcwilliams and she agreed with giving 1 mg solu medrol pt will be seen by neurology tomorrow. 2110 Dr. Mcwilliams called back and suggested not to give the steroids yet. The patient will be admitted. Course/Dx - Diagnoses Provider Diagnoses: Fall, Multiple sclerosis exacerbation - Provider Notifications Discussed Care Of Patient With: Jaiden Fabian Time Discussed With Above Provider: 21:10 Instructed by Provider To: Admit As Inpatient The documentation as recorded by the Zulma mark Gabriel accurately reflects the service I personally performed and the decisions made by , Faith Candelaria MD.
[2017-08-23] MEDS ORDERED: Dimethyl Fumarate(NF) 240 MG CAP PO SCH (22:00)
[2017-08-23] MEDS: NS 0.9% 1000 ML* 1,000 ML IV SCH (23:03)
--- NOTE | 2017-08-23 23:33 | ED ---
Franki Baez Natalie, scribed for Patricia Pinedo MD on 08/23/17 at 1812 . Neurological HPI - HPI Summary HPI Summary: The patient is a 47 y/o F with hx SWAPNIL PINA to the ED after mechanical fall at home. She had just gone to the bathroom, and gotten up with her walker when she fell and was on the floor until EMS arrived. When she fell, she hurt her ankle and her back. After falling, she was not able to bear weight again. Her legs are weaker than usual. Her hips always hurt. She says this is nothing like previous DVT or PE episodes. She denies CP and cough. The patient isnt sure if hit her head, but she denies LOC. She gets steroid infusions for MS, for which she was diagnosed for in 2000. She takes Warfarin. She is allergic to Aspirin, Codeine, Sulfa, and Penicillin. - History of Current Complaint Chief Complaint: EDWeakness Stated Complaint: FALL/RT ANKLE PAIN Time Seen by Provider: 08/23/17 16:31 Hx Obtained From: Patient, EMS Onset/Duration: Sudden Onset, Other - s/p fall Timing: Constant Onset Severity: Severe Current Severity: Moderate Pain Intensity: 7 Pain Scale Used: 0-10 Numeric Character: Weak Syncope Context: Loss of Consciousness: No Aggravating: Nothing Alleviating: Rest Associated Signs and Symptoms: Positive: Pain - low back, right ankle. Negative : Memory Loss, Decreased Level of Consciousness Related Hx: Coumadin - Additional Pertinent History Primary Care Physician: [id number] - Allergy/Home Medications Allergies/Adverse Reactions: Allergies Allergy/AdvReac Type Severity Reaction Status Date / Time bee venom protein (honey bee) Allergy Severe See Comment Verified 07/29/17 14:21 onion Allergy Severe See Comment Verified 07/29/17 14:21 Sulfa (Sulfonamide Allergy Severe Unknown Verified 07/29/17 14:21 Antibiotics) Reaction Details aspirin Allergy Intermediate Nausea Verified 07/29/17 14:21 Penicillins Allergy Intermediate See Comment Verified 07/29/17 14:21 Banks And Derivatives Allergy Unknown See Comment Verified 07/29/17 14:21 codeine Allergy Unknown Verified 08/23/17 18:43 Reaction Details PMH/Surg Hx/FS Hx/Imm Hx Previously Healthy: No Endocrine/Hematology History: Reports: Hx Thyroid Disease Denies: Hx Diabetes, Hx Anemia, Hx Unexplained Bleeding, Other Endocrine/ Hematological Disorders Cardiovascular History: Denies: Hx Aneurysm, Hx Angina, Hx Angioplasty, Hx Auto Implanted Cardiovert Defib, Hx Cardiac Arrest, Hx Cardiomegaly, Hx Congenital Heart Disease, Hx Congestive Heart Failure, Hx Coronary Artery Disease, Hx Deep Vein Thrombosis, Hx Embolism, Hx Hypercholesterolemia, Hx Hypotension, Hx Hypertension, Hx Pacemaker/ICD, Hx Peripheral Vascular Disease, Hx Rheumatic Fever, Hx Syncope, Hx Valvular Heart Disease, Other Cardiovascular Problems/Disorders Respiratory History: Reports: Hx Asthma - as a child, Hx Pulmonary Embolism, Hx Sleep Apnea Denies: Hx Chronic Bronchitis, Hx Chronic Obstructive Pulmonary Disease (COPD ), Hx Cystic Fibrosis, Hx Lung Cancer, Hx Pleural Effusion, Hx Pneumonia, Hx Seasonal Allergies, Other Respiratory Problems/Disorders GI History: Reports: Hx Gastroesophageal Reflux Disease, Hx Ulcer Denies: Hx Gastrointestinal Bleed, Hx Hiatal Hernia History: Reports: Other Problems/Disorders - urinary incontinence Denies: Hx Dialysis, Hx Kidney Stones, Hx Renal Disease Musculoskeletal History: Reports: Hx Arthritis - knees, right hand, Hx Back Problems, Other Musculoskeletal History - MS Denies: Hx Bursitis, Hx Congenital Bone Abnormalities, Hx Fibromyalgia, Hx Gout, Hx Orthopedic Injury, Hx Osteoporosis, Hx Scoliosis, Hx Tendonitis Sensory History: Reports: Hx Contacts or Glasses, Other Sensory Impairments - Numbness in feet Denies: Hx Cataracts, Hx Eye Injury, Hx Eye Prosthesis, Hx Glaucoma, Hx Legally Blind, Hx Macular Degeneration, Hx Vision Problem, Hx Deafness, Hx Hearing Aid, Hx Hearing Problem Opthamlomology History: Reports: Hx Contacts or Glasses, Other Sensory Impairments - Numbness in feet Denies: Hx Cataracts, Hx Eye Injury, Hx Eye Prosthesis, Hx Glaucoma, Hx Legally Blind, Hx Macular Degeneration, Hx Vision Problem Neurological History: Reports: Hx Headaches, Other Neuro Impairments/Disorders - MS Denies: Hx Dementia, Hx Developmental Delay, Hx Seizures, Hx Spinal Cord Injury, Hx Transient Ischemic Attacks (TIA) Psychiatric History: Reports: Hx Anxiety, Hx Depression, Hx Suicide Attempt, Hx Substance Abuse Denies: Hx Attention Deficit Hyperactivity Disorder, Hx Eating Disorder, Hx Panic Disorder, Hx Post Traumatic Stress Disorder, Hx Inpatient Treatment, Hx Community Mental Health Tx, Hx Schizophrenia, Hx Bipolar Disorder, Hx of Violent Episodes Against Others, Other Psychiatric Issues/Disorders - Cancer History Hx Chemotherapy: No Hx Radiation Therapy: No - Surgical History Surgery Procedure, Year, and Place: breast reduction Hx Anesthesia Reactions: No - Immunization History Date of Tetanus Vaccine: Unknown Date of Influenza Vaccine: Unk re: Fall 2014 Infectious Disease History: No Infectious Disease History: Denies: Hx Clostridium Difficile, Hx Hepatitis, Hx Human Immunodeficiency Virus (HIV), Hx of Known/Suspected MRSA, Hx Shingles, Hx Tuberculosis, Hx Known/ Suspected VRE, Hx Known/Suspected VRSA, History Other Infectious Disease, Traveled Outside the [place] in Last 30 Days - Family History Known Family History: Positive: Diabetes Family History: FHx of spina bifida - Social History Occupation: Disabled Alcohol Use: None 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 Hx Substance Use: No Substance Use Type: Reports: None Hx Tobacco Use: No Smoking Status (MU): Former Smoker Type: Cigarettes Amount Used/How Often: 2 cigaretts/week Length of Time of Smoking/Using Tobacco: 2 months Have You Smoked in the Last Year: No Review of Systems Constitutional: Negative Negative: Chest Pain Negative: Cough Positive: Other - back pain, right ankle pain, hip pain Neurological: Other - neg:LOC Positive: Weakness - bilat leg weakness, worsening All Other Systems Reviewed And Are Negative: Yes Physical Exam - Summary Physical Exam Summary: Appearance: Ill-appearing, moderate pain distress, well-nourished Skin: Warm, color reflects adequate perfusion Head: Normal Head/Face inspection Eyes: Conjunctiva clear ENT: Normal inspection Neck: Supple, no nodes, no JVD. Respiratory: Lungs clear, Normal breath sounds, no respiratory distress Cardio: Tachycardic, No murmur, pulses normal, brisk capillary refill Abdomen: soft, nontender Bowel sounds: present Musculoskeletal: Deformity and swelling of right ankle. Tender to palpation. Good pulses in feet. Diffuse redness on patella of right leg. She can move her legs, but can't lift them off of the stretcher. Neuro: Alert, muscle tone normal, facial symmetry, speech normal, sensory, motor function of legs weak 4/5 Psychological: Normal Vital Signs On Initial Exam: Initial Vitals Temp Pulse Resp BP Pulse Ox 98.8 F 120 17 128/69 97 08/23/17 15:04 08/23/17 15:04 08/23/17 15:04 08/23/17 15:04 08/23/17 15:04 Diagnostics - Vital Signs Vital Signs Temp Pulse Resp BP Pulse Ox 08/23/17 17:00 114 131/85 95 08/23/17 16:50 117 128/85 95 08/23/17 16:30 123 119/85 97 08/23/17 16:10 98 08/23/17 16:00 116 131/74 95 08/23/17 15:30 117 123/82 94 08/23/17 15:22 112 94 08/23/17 15:04 98.8 F 120 17 128/69 97 - Laboratory Lab Results: Lab Results 08/23/17 08/23/17 08/23/17 Range/Units 16:05 16:05 16:05 WBC (3.5-10.8) 10^3/ul RBC (4.0-5.4) 10^6/ul Hgb (12.0-16.0) g/dl Hct (35-47) % MCV (80-97) fL MCH (27-31) pg MCHC (31-36) g/dl RDW (10.5-15) % Plt Count (150-450) 10^3/ul MPV (7.4-10.4) um3 Neut % (Auto) (38-83) % Lymph % (Auto) (25-47) % Hardeman % (Auto) (0-7) % Eos % (Auto) (0-6) % Baso % (Auto) (0-2) % Absolute Neuts (auto) (1.5-7.7) 10^3/ul Absolute Lymphs (auto) (1.0-4.8) 10^3/ul Absolute Monos (auto) (0-0.8) 10^3/ul Absolute Eos (auto) (0-0.6) 10^3/ul Absolute Basos (auto) (0-0.2) 10^3/ul Absolute Nucleated RBC 10^3/ul Nucleated RBC % INR (Anticoag Therapy) 2.27 H (0.77-1.02) APTT 35.1 (26.0-36.3) seconds D-Dimer, Quantitative > 1050 H (Less Than 230) ng/mL Sodium 136 (133-145) mmol/L Potassium 4.1 (3.5-5.0) mmol/L Chloride 103 (101-111) mmol/L Carbon Dioxide 25 (22-32) mmol/L Anion Gap 8 (2-11) mmol/L BUN 7 (6-24) mg/dL Creatinine 0.70 (0.51-0.95) mg/dL Est GFR ( Amer) 114.9 (>60) Est GFR (Non-Af Amer) 89.3 (>60) BUN/Creatinine Ratio 10.0 (8-20) Glucose 130 H (70-100) mg/dL Lactic Acid (0.5-2.0) mmol/L Calcium 9.1 (8.6-10.3) mg/dL Magnesium 1.8 L (1.9-2.7) mg/dL Total Bilirubin 0.30 (0.2-1.0) mg/dL AST 16 (13-39) U/L ALT 17 (7-52) U/L Alkaline Phosphatase 91 (34-104) U/L Total Creatine Kinase 19 (10-223) U/L CK-MB (CK-2) 0.5 L (0.6-6.3) ng/mL Troponin I 0.00 (<0.04) ng/mL C-Reactive Protein 9.96 H (< 5.00) mg/L B-Natriuretic Peptide 20 ( - 100) pg/mL Total Protein 6.7 (6.4-8.9) g/dL Albumin 4.0 (3.2-5.2) g/dL Globulin 2.7 (2-4) g/dL Albumin/Globulin Ratio 1.5 (1-3) Lipase < 10 L (11.0-82.0) U/L TSH 0.45 (0.34-5.60) mcIU/mL 08/23/17 08/23/17 Range/Units 16:05 16:05 WBC 9.0 (3.5-10.8) 10^3/ul RBC 4.49 (4.0-5.4) 10^6/ul Hgb 13.0 (12.0-16.0) g/dl Hct 39 (35-47) % MCV 86 (80-97) fL MCH 29 (27-31) pg MCHC 34 (31-36) g/dl RDW 16 H (10.5-15) % Plt Count 290 (150-450) 10^3/ul MPV 8 (7.4-10.4) um3 Neut % (Auto) 93.7 H (38-83) % Lymph % (Auto) 3.9 L (25-47) % Hardeman % (Auto) 1.5 (0-7) % Eos % (Auto) 0 (0-6) % Baso % (Auto) 0.9 (0-2) % Absolute Neuts (auto) 8.4 H (1.5-7.7) 10^3/ul Absolute Lymphs (auto) 0.3 L (1.0-4.8) 10^3/ul Absolute Monos (auto) 0.1 (0-0.8) 10^3/ul Absolute Eos (auto) 0 (0-0.6) 10^3/ul Absolute Basos (auto) 0.1 (0-0.2) 10^3/ul Absolute Nucleated RBC 0 10^3/ul Nucleated RBC % 0.1 INR (Anticoag Therapy) (0.77-1.02) APTT (26.0-36.3) seconds D-Dimer, Quantitative (Less Than 230) ng/mL Sodium (133-145) mmol/L Potassium (3.5-5.0) mmol/L Chloride (101-111) mmol/L Carbon Dioxide (22-32) mmol/L Anion Gap (2-11) mmol/L BUN (6-24) mg/dL Creatinine (0.51-0.95) mg/dL Est GFR ( Amer) (>60) Est GFR (Non-Af Amer) (>60) BUN/Creatinine Ratio (8-20) Glucose (70-100) mg/dL Lactic Acid 2.4 H* (0.5-2.0) mmol/L Calcium (8.6-10.3) mg/dL Magnesium (1.9-2.7) mg/dL Total Bilirubin (0.2-1.0) mg/dL AST (13-39) U/L ALT (7-52) U/L Alkaline Phosphatase (34-104) U/L Total Creatine Kinase (10-223) U/L CK-MB (CK-2) (0.6-6.3) ng/mL Troponin I (<0.04) ng/mL C-Reactive Protein (< 5.00) mg/L B-Natriuretic Peptide ( - 100) pg/mL Total Protein (6.4-8.9) g/dL Albumin (3.2-5.2) g/dL Globulin (2-4) g/dL Albumin/Globulin Ratio (1-3) Lipase (11.0-82.0) U/L TSH (0.34-5.60) mcIU/mL Result Diagrams: 08/26/17 06:20 08/27/17 05:49 Lab Statement: Any lab studies that have been ordered have been reviewed, and results considered in the medical decision making process. - EKG 15:57 Cardiac Rate: Tachycardia EKG Rhythm: Sinus Tachycardia - 114BPM ST Segment: Non-Specific Ectopy: None EKG Interpretation: Nml AVIVCT. Nml QTc. Nml axis. EKG Comparison: No Significant Change - from 07/19/17 Course/Dx - Course Course Of Treatment: Pt's medications reviewed during this visit. Allergies noted. In the ER, the patient was given NS IV x2, Omnipaque, Morphine, and Zofran. The patient is a signout to Dr. Candelaria at 19:00 awaiting Right Ankle XR, CT Brain, CT Cervical Spine, CT Lumbar Spine, CTA Chest, Right Knee XR, Right Lower Leg XR, and Pelvis XR. - Diagnoses Provider Diagnoses: Fall, Multiple sclerosis exacerbation, Avulsion fracture of ankle Discharge - Discharge Plan Condition: Stable Disposition: ADMITTED TO [facility] The documentation as recorded by the Franki mark Natalie accurately reflects the service I personally performed and the decisions made by , Patricia Pinedo MD.
[2017-08-24] MEDS: oxyCODONE TAB* 5 MG TAB PO PRN ×3 (00:07→19:13)
[2017-08-24] MEDS: Oxybutynin TAB* 5 MG PO SCH ×3 (00:07→17:16)
[2017-08-24] MEDS: Amantadine CAP* 100 MG PO SCH ×3 (00:08→21:55)
[2017-08-24] MEDS: Baclofen TAB* 10 MG PO SCH ×3 (00:08→21:55)
[2017-08-24] MEDS: DIMETHYL FUMARATE 240 MG PO SCH ×3 (01:16→21:55)
--- NOTE | 2017-08-24 01:25 | HP ---
CC: Dr. Chandler* HISTORY AND PHYSICAL: DATE OF ADMISSION: 08/23/17 PRIMARY CARE PROVIDER: Dr. Chandler. CHIEF COMPLAINT: Fall with weakness. HISTORY OF PRESENT ILLNESS: Ms. Cisneros is a 47-year-old female who has a history of multiple sclerosis, depression, recent treatment for myositis of the hip/thigh and jaw and DVT as well as asthma, who presented to the emergency room with complaints of fall and weakness. The patient states that she was walking from the bathroom back to her recliner when she began to feel weak. She states that she was turning around to sit down on her recliner when her legs gave out. She ended up falling and getting stuck between her coffee table and recliner. She does state that she felt slightly lightheaded before going down, but had no loss of consciousness. She had no palpitations, no chest pain or shortness of breath. The patient believes that she was on the floor for less than 1 hour. She states that she wears a life alert button and pushed this right away. She additionally states that when the EMS personnel arrived to her home, even with their assistance she was unable to stand. PAST MEDICAL HISTORY: 1. Multiple sclerosis. 2. Depression. 3. Asthma. 4. History of migraines. 5. Urinary incontinence. 6. History of optic neuritis. 7. Recent treatment for myositis of the hip/thigh and jaw. 8. History of DVT. ALLERGIES: 1. BEES. 2. ONION. 3. SULFA. 4. ASPIRIN. 5. PENICILLIN. 6. CITRUS. 7. CODEINE. MEDICATIONS: 1. Coumadin 4 mg p.o. daily. 2. Viibryd 40 mg p.o. daily. 3. Senna Lax 8.6 mg p.o. b.i.d. 4. Potassium chloride 20 mEq p.o. daily. 5. Oxycodone 5 mg p.o. q.4 hours p.r.n. pain. 6. Oxybutynin 5 mg p.o. q.a.m., 10 mg p.o. q.p.m. 7. Prilosec 20 mg p.o. daily. 8. Bactroban 2% ointment apply twice daily as needed. 9. Concerta ER 36 mg p.o. daily. 10. Levothyroxine 75 mcg p.o. daily. 11. Tecfidera 240 mg p.o. b.i.d. 12. Baclofen 15 mg p.o. b.i.d. 13. Somantadine 100 mg p.o. b.i.d. 14. Tylenol 650 mg p.o. q.4 hours p.r.n. pain. FAMILY HISTORY: Mom at the age of 60. She had diabetes and coronary artery disease. Dad is living, he is 70. He has history of hyperlipidemia. SOCIAL HISTORY: The patient is a nonsmoker. She does not drink. 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 She is . She has 1 child. She indicates that Meme Palumbo is her healthcare proxy. REVIEW OF SYSTEMS: A complete 11 system review of systems is obtained. Pertinent positives and negatives are as per HPI and in addition, the patient does admit to mild shortness of breath, which is new. She states that she fluctuates between diarrhea and constipation. She has noted some mild dysuria and dark urine. She also notes the vision in her right eye is worse than it has been. This developed yesterday. She also describes dysphagia x1 week. PHYSICAL EXAMINATION GENERAL: The patient is a well-developed, middle-aged obese female, sitting up in the stretcher in no acute distress. VITAL SIGNS: Blood pressure 139/92, pulse 117, respirations 16, temp 98.8, O2 sat 94% on room air. HEENT: Pupils are equal and round. Extraocular muscles are intact. Oropharynx is clear. Oral mucosa is moist. There is no submandibular, cervical or supraclavicular adenopathy. Thyroid is not enlarged. No thyroid nodules are noted. PULMONARY: Lungs are clear to auscultation with few bibasilar crackles. CARDIAC: Normal S1 and S2. Heart rate is tachycardic, but regular. There is no lower extremity edema. ABDOMEN: Bowel sounds are present. Abdomen is soft, nontender, nondistended. MUSCULOSKELETAL: There is no cyanosis or clubbing of the digits. There is full active range of motion of the upper extremities and left lower extremity. The right lower extremity distal range of motion is limited as the patient states that she hurt her ankle when she fell. NEURO: Cranial nerves II through XII are grossly intact. Sensation is intact to light touch throughout. Strength testing is difficult in the lower extremities, especially given the right ankle injury. Upper extremity strength appears to be within normal limits. SKIN: Warm and dry. There are no rashes. PSYCH: The patient is alert. She is oriented x3. Affect appears appropriate. DIAGNOSTIC STUDIES/LAB DATA: WBC 9.0, hemoglobin 13.0, hematocrit 39, platelets 290. INR 2.27. D-dimer greater than 1050. Sodium 136, potassium 4.1 , chloride 103, CO2 25, BUN 7, creatinine 0.7, glucose 130, lactic acid 2.4, calcium 9.1, magnesium 1.8. Bilirubin 0.3, AST 16, ALT 17, alk phos 91. CPK 19 , CK-MB 0.5. Troponin 0. CRP 9.96, BNP 20. Albumin 4.0, lipase less than 10, TSH 0.45. Urinalysis reveals a specific gravity of 1.006 and otherwise negative for signs of infection. Chest x-ray, no active disease. CT brain, cortical atrophy with chronic microvascular ischemic changes. No acute findings noted. CT cervical spine, moderate degenerative disk disease at C5-6. No acute findings. Lumbar CT, no acute CT findings or interval changes. Wide canal and foraminal patency. Right ankle injury, tiny, age indeterminant avulsion fracture from the lateral malleolus with associated soft tissue swelling. Pelvis x-ray, negative exam. Right knee x-ray, negative exam. Right lower leg x-ray, negative exam. CTA chest, no CT evidence of acute pulmonary emboli. Interval lysis of previously identified pulmonary emboli. Lungs are clear. EKG, sinus tachycardia without any acute ST-T wave abnormalities. ASSESSMENT AND PLAN: Ms. Cisneros is a 47-year-old female with a known history of multiple sclerosis, recent treatment for myositis of the jaw and hip/thigh and deep venous thrombosis/pulmonary embolism, who presents to the emergency room with complaints of fall and weakness. 1. Weakness with subsequent fall. The etiology of this is not completely clear. The patient shows no signs currently of infection. She is mildly tachycardic; however, I think she may be slightly volume deplete given her elevated lactic acid level. Urine and chest x-ray do not show any signs of infection. She does not have a leukocytosis. For now, we will monitor for signs of infection. I am not going to treat with any antibiotics. It is possible her weakness may be secondary to her multiple sclerosis flare. Dr. Mcwilliams has been consulted and will be seeing the patient tomorrow. She is recommended giving the patient 1 g of Solu-Medrol this evening and this has already been ordered by the ER provider. PT evaluation will be held off on for now, but will likely be necessary prior to discharge home. 2. Right ankle pain. There is a tiny avulsion fracture of the right lateral malleolus. Likely nothing needs to be done for this other than time and pain control. Orthopedics consultation can be considered tomorrow morning. 3. History of deep venous thrombosis/pulmonary embolism. The patient will be maintained on her usual dose of Coumadin. Her INR is therapeutic. 4. Urinary incontinence. We will continue oxybutynin. 5. Hypothyroidism. Continue Synthroid at current dose. 6. Multiple sclerosis. We will continue amantadine, baclofen, Tecfidera as the patient has brought this in and her Concerta. 7. DVT prophylaxis. According to the Adult Thrombosis Prophylaxis Risk Factor Assessment Guide, the patient has a total risk factor score of 5 making her the highest risk. She already has a therapeutic INR and this will be used as DVT prophylaxis. 9. Code status is DNR. TIME SPENT: Sixty-five minutes was spent admitting this patient. [id number]/BIBIANA #: [id number] SHIRA
[2017-08-24] MEDS: Warfarin TAB(*) 2 MG PO SCH ×2 (01:32→17:16)
[2017-08-24] MEDS: Morphine INJ* 4 MG/ML 1 ML SYRINGE (NEW SYRINGE VERSION) IV PRN ×5 (01:43→22:01)
[2017-08-24] MEDS: Levothyroxine TAB* 75 MCG TAB PO SCH (05:35)
[2017-08-24] MEDS: NS 0.9% 1000 ML* 1,000 ML IV SCH (05:49)
[2017-08-24 06:03] LABS: INR 1.93 (0.77-1.02)
[2017-08-24] MEDS: Methylphenidate ER TAB* 18 MG PO SCH (08:54)
[2017-08-24] MEDS: Potassium Chlor TAB* 20 MEQ TAB.ER PO SCH (08:54)
[2017-08-24] MEDS: Omeprazole CAP* 20 MG PO SCH (08:54)
[2017-08-24] MEDS ORDERED: Senna TAB PO SCH (09:00)
[2017-08-24] MEDS ORDERED: CMCS: Vilazodone (NF) 40 MG TAB PO SCH (09:00)
--- NOTE | 2017-08-24 09:17 | PN ---
Subjective Date of Service: 08/24/17 Interval History: Patient seen and examined at bedside. Denies fever, chills, shortness of breath , chest discomfort, N/V/D. Pt states that she has pain in her right ankle with associated numbness in her right foot. Pt has good sensation to her right foot and toes, she is able to wiggle her toes and minimally dorsi and plantar flex her right foot. Discussed with Pt about the possibility of assisted living and she states that she has aide services 6 days a week for 8 hours spread out over the day. Family History: Unchanged from Admission Social History: Unchanged from Admission Past Medical History: Unchanged from Admission Objective Active Medications: Acetaminophen (Tylenol Tab*) 650 mg PO Q4H PRN Reason: PAIN Amantadine HCl (Symmetrel Cap*) 100 mg PO BID BRENNAN Baclofen (Lioresal Tab*) 15 mg PO BID BRENNAN Dimethyl Fumarate (Tecfidera(Nf)) 240 mg PO BID BRENNAN Sodium Chloride (Ns 0.9% 1000 Ml*) 1,000 mls @ 0 mls/hr BOLUS .BOLUS DOSE BRENNAN Sodium Chloride (Ns 0.9% 1000 Ml*) 1,000 mls @ 150 mls/hr IV PER RATE BRENNAN Stop: 08/25/17 04:24 Levothyroxine Sodium (Synthroid Tab*) 75 mcg PO 0600 BRENNAN Methylphenidate HCl (Concerta Er Tab*) 36 mg PO DAILY BRENNAN Morphine Sulfate (Morphine Inj (Syringe)*) 4 mg IV Q4H PRN Reason: PAIN Omeprazole (Prilosec Cap*) 20 mg PO DAILY BRENNAN Oxybutynin Chloride (Ditropan Tab*) 5 mg PO QAM BRENNAN Oxybutynin Chloride (Ditropan Tab*) 10 mg PO QPM BRENNAN Oxycodone HCl (Roxycodone Tab*) 5 mg PO Q4HR PRN Reason: PAIN Pharmacy Profile Note (Coumadin Daily Reminder*) 1 note FOLLOW UP 1700 BRENNAN Potassium Chloride (Klor Con Er Tab*) 20 meq PO DAILY BRENNAN Senna (Senokot Tab*) 8.6 tab PO BID BRENNAN Vilazodone HCl (Viibryd (Nf)) 40 mg PO DAILY BRENNAN Warfarin Sodium (Coumadin Tab(*)) 2 mg PO 1700 BRENNAN Stop: 08/24/17 17:30 Vital Signs - 8 hr 08/24/17 08/24/17 08/24/17 01:43 02:50 03:44 Temperature 98.0 F Pulse Rate 100 Respiratory 16 16 16 Rate Blood Pressure 138/68 (mmHg) O2 Sat by Pulse 98 Oximetry 08/24/17 08/24/17 08/24/17 05:40 07:00 07:44 Temperature 97.9 F Pulse Rate 93 Respiratory 16 16 18 Rate Blood Pressure 121/69 (mmHg) O2 Sat by Pulse 98 Oximetry 08/24/17 08/24/17 08:00 08:59 Temperature Pulse Rate Respiratory 18 18 Rate Blood Pressure (mmHg) O2 Sat by Pulse Oximetry Oxygen Devices in Use Now: None Appearance: NAD, sitting up in bed Respiratory: Symmetrical Chest Expansion and Respiratory Effort, Clear to Auscultation Cardiovascular: NL Sounds; No Murmurs; No JVD, RRR Abdominal: NL Sounds; No Tenderness; No Distention Extremities: - - Mild edema to right ankle. Tenderness with palpation to the right ankle Skin: No Rash or Ulcers Neurological: Alert and Oriented x 3, NL Muscle Strength and Tone Lines/Tubes/Other Access: Clean, Dry and Intact Peripheral IV - site benign Nutrition: Taking PO's Result Diagrams: 08/23/17 16:05 08/23/17 16:05 Additional Lab and Data: Assess/Plan/Problems-Billing Assessment: Ms. Beach is a 47 yo female with PMH significant for MS, depression, asthma, migraines, urinary inc., optic neuritis, hx DVT/PE, and recent treatment for myositis of the jaw and hip/thigh who presented to the emergency room with complaints of fall and weakness. - Patient Problems (1) Weakness Code(s): R53.1 - WEAKNESS SNOMED Code(s): 99848221 Comment: - Etiology not clear, onset seemed rather acute - ? Psudo MS exacerbation - Doubt this is secondary to infection (UA negative, no leukocytosis or fever, chest xray negative) - Neuro consult, input appreciated - MRI of the brain and spine, pending - PT eval, pending (2) Closed right ankle fracture Code(s): S82.891A - OTH FRACTURE OF RIGHT LOWER LEG, INIT FOR CLOS FX SNOMED Code(s): 92657264 Comment: - Right avulsion fracture of the right lateral malleolus - Will get a walking boot - Will ask ortho to see, due to c/o numbess in the foot and significant pain - Pain management (3) Multiple sclerosis Code(s): G35 - MULTIPLE SCLEROSIS SNOMED Code(s): 03102333 Comment: - Followed by Neurology outpatient on Tecfidera - Neurology consult, input appreciated - Hold on further steroids for now (4) History of DVT (deep vein thrombosis) Code(s): Z86.718 - PERSONAL HISTORY OF OTHER VENOUS THROMBOSIS AND EMBOLISM SNOMED Code(s): 482358878 Comment: - INR subtherapeutic today - Continue Warfarin (5) Urinary incontinence Code(s): R32 - UNSPECIFIED URINARY INCONTINENCE SNOMED Code(s): 630316615 Comment: - Continue oxybutynin (6) Hypothyroidism Code(s): E03.9 - HYPOTHYROIDISM, UNSPECIFIED SNOMED Code(s): 00545044 Comment: - TSH 0.45 - Continue levothyroxine (7) Asthma Code(s): J45.909 - UNSPECIFIED ASTHMA, UNCOMPLICATED SNOMED Code(s): 383787140 Comment: - No acute exacerbation (8) DVT prophylaxis Code(s): DZI0683 - SNOMED Code(s): 557469242 Comment: - Warfarin (9) DNR (do not resuscitate) Status and Disposition: Inpatient. Discharge to home when medically stable, may need to have assisted vs SNF at discharge.
[2017-08-24] MEDS ORDERED: LORazepam TAB(*) 1 MG PO ONE (12:00)
--- NOTE | 2017-08-24 13:35 | CONSULT ---
Consult Consult: Date of Consult: 08/24/2017 CHIEF COMPLAINT: Right ankle pain after fall HISTORY OF PRESENTING ILLNESS: Ms. Cisneros is a 47 yr old female, with past medical history significant for multiple sclerosis, DVT, and myositis of hip, thigh, and jaw, who was walking between her walker and recliner on 08/23/17 when she fell and injured her ankle. She does not remember if her foot inverted or everted during the fall. She denies LOC during fall. She continues to have right ankle pain which is worse on the outside of her ankle. She reports numbness and tingling in her right ankle and foot. She was brought to the ED due to ankle pain, fall and was admitted for concerns for Multiple Sclerosis flair. She denies any fevers, chills, pain with urination, other joint pain. She is seen at bedside, eating lunch. PAST MEDICAL HISTORY: Significant for multiple sclerosis, depression, myositis of hip/thigh and jaw, DVT with PE, asthma, urinary incontinence, and optic neuritis. PAST SURGICAL HISTORY: Breast reduction FAMILY HISTORY: History of diabetes and AR in mother, dyslipidemia in father. 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 She does smoke tobacco 2 cigarettes/week. 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 REVIEW OF SYSTEMS: Endorses mild shortness of breath, fluctuates between diarrhea and constipation, worsened right eye vision, dysphasia, and mild dysuria. Otherwise a 12 system ROS was negative. PHYSICAL EXAM: General: Well-nourished, well-developed, in no acute distress, alert and oriented x3, normal mood and affect. She is lying comfortably in bed. Temp Pulse Resp BP Pulse Ox 97.9 F 93 16 121/69 98 08/24/17 07:44 08/24/17 07:44 08/24/17 13:13 08/24/17 07:44 08/24/17 07:44 Musculoskeletal: Good balance and coordination of extremities. Right lower extremity skin is intact. No tenderness at knee. She has global swelling at lateral ankle with slight ecchymosis. She has some tenderness at deltoid ligament, and anterior ankle. Pain at lateral distal ankle. She has some DF/PF, inversion and eversion at ankle. Strength is limited by pain in all movements. 2 + DP pulse. Sensation is intact to light touch distally. Negative squeeze test. DIAGNOSTIC STUDIES: Laboratory Results - last 24 hr 08/23/17 08/23/17 08/23/17 16:05 16:05 16:05 WBC RBC Hgb Hct MCV MCH MCHC RDW Plt Count MPV Neut % (Auto) Lymph % (Auto) [place] % (Auto) Eos % (Auto) Baso % (Auto) Absolute Neuts (auto) Absolute Lymphs (auto) Absolute Monos (auto) Absolute Eos (auto) Absolute Basos (auto) Absolute Nucleated RBC Nucleated RBC % INR (Anticoag Therapy) 2.27 H APTT 35.1 D-Dimer, Quantitative > 1050 H Sodium 136 Potassium 4.1 Chloride 103 Carbon Dioxide 25 Anion Gap 8 BUN 7 Creatinine 0.70 Est GFR ( Amer) 114.9 Est GFR (Non-Af Amer) 89.3 BUN/Creatinine Ratio 10.0 Glucose 130 H Lactic Acid Calcium 9.1 Magnesium 1.8 L Total Bilirubin 0.30 AST 16 ALT 17 Alkaline Phosphatase 91 Total Creatine Kinase 19 CK-MB (CK-2) 0.5 L Troponin I 0.00 C-Reactive Protein 9.96 H B-Natriuretic Peptide 20 Total Protein 6.7 Albumin 4.0 Globulin 2.7 Albumin/Globulin Ratio 1.5 Lipase < 10 L TSH 0.45 Urine Color Urine Appearance Urine pH Ur Specific [place] Urine Protein Urine Ketones Urine Blood Urine Nitrate Urine Bilirubin Urine Urobilinogen Ur Leukocyte Esterase Urine Glucose 08/23/17 08/23/17 08/23/17 16:05 16:05 18:16 WBC 9.0 RBC 4.49 Hgb 13.0 Hct 39 MCV 86 MCH 29 MCHC 34 RDW 16 H Plt Count 290 MPV 8 Neut % (Auto) 93.7 H Lymph % (Auto) 3.9 L [place] % (Auto) 1.5 Eos % (Auto) 0 Baso % (Auto) 0.9 Absolute Neuts (auto) 8.4 H Absolute Lymphs (auto) 0.3 L Absolute Monos (auto) 0.1 Absolute Eos (auto) 0 Absolute Basos (auto) 0.1 Absolute Nucleated RBC 0 Nucleated RBC % 0.1 INR (Anticoag Therapy) APTT D-Dimer, Quantitative Sodium Potassium Chloride Carbon Dioxide Anion Gap BUN Creatinine Est GFR ( Amer) Est GFR (Non-Af Amer) BUN/Creatinine Ratio Glucose Lactic Acid 2.4 H* Calcium Magnesium Total Bilirubin AST ALT Alkaline Phosphatase Total Creatine Kinase CK-MB (CK-2) Troponin I C-Reactive Protein B-Natriuretic Peptide Total Protein Albumin Globulin Albumin/Globulin Ratio Lipase TSH Urine Color Straw Urine Appearance Clear Urine pH 8.0 Ur Specific [place] 1.006 L Urine Protein Negative Urine Ketones Negative Urine Blood Negative Urine Nitrate Negative Urine Bilirubin Negative Urine Urobilinogen Negative Ur Leukocyte Esterase Negative Urine Glucose Negative 08/23/17 08/24/17 21:55 05:50 WBC RBC Hgb Hct MCV MCH MCHC RDW Plt Count MPV Neut % (Auto) Lymph % (Auto) [place] % (Auto) Eos % (Auto) Baso % (Auto) Absolute Neuts (auto) Absolute Lymphs (auto) Absolute Monos (auto) Absolute Eos (auto) Absolute Basos (auto) Absolute Nucleated RBC Nucleated RBC % INR (Anticoag Therapy) 1.93 H APTT D-Dimer, Quantitative Sodium Potassium Chloride Carbon Dioxide Anion Gap BUN Creatinine Est GFR ( Amer) Est GFR (Non-Af Amer) BUN/Creatinine Ratio Glucose Lactic Acid 0.8 Calcium Magnesium Total Bilirubin AST ALT Alkaline Phosphatase Total Creatine Kinase CK-MB (CK-2) Troponin I C-Reactive Protein B-Natriuretic Peptide Total Protein Albumin Globulin Albumin/Globulin Ratio Lipase TSH Urine Color Urine Appearance Urine pH Ur Specific [place] Urine Protein Urine Ketones Urine Blood Urine Nitrate Urine Bilirubin Urine Urobilinogen Ur Leukocyte Esterase Urine Glucose Pelvis X-ray 08/23/17: No bony or soft tissue abnormalities per Dr. Vitaly Noel. Right Knee x-ray 08/23/17: Bony structures, joint spaces, and soft tissue normal for age per Dr. Vitaly Noel. Right Lower Leg x-ray 08/23/17: Negative exam per Dr. Vitaly Noel. Right Ankle x-ray 08/23/17: Tiny, age-indeterminate avulsion fracture from the lateral malleolus, with associated soft tissue swelling. ASSESSMENT AND PLAN: Right lateral malleolus avulsion fracture with clinic exam consistent with lateral ankle sprain. No evidence of syndesmotic injury. Recommend placement in walking boot. She will be weight bearing as tolerated. With her history of multiple sclerosis she will likely need assistance with ambulation until pain level improves. She will been seen by Dr. Rangel in clinic in about 1 week. We will see the patient on an outpatient basis. Please call if you have any questions.
--- NOTE | 2017-08-24 20:58 | CONS ---
CONSULTATION REPORT: DATE OF CONSULT: 08/23/17 LOCATION: Currently in room 415, bed 2. REASON FOR CONSULTATION: Lower extremity weakness. HISTORY OF PRESENT ILLNESS: Ms. Cisneros is a very nice 47-year-old female who has an extremely complicated past medical history. She is followed by Dr. Barahona in the clinic for a history of MS, which was diagnosed in 2000. She states that she has had a complete workup, has been on multiple medications including Avonex and Copaxone and is now on Tecfidera, which she states she has been on for at least 2 years. Her most recent absolute lymphocyte on 07/03/17 was 0.6. She states that she has been taking her medication regularly. She has had right arm weakness in the past, which was her initial presentation. She also notes a history of optic neuritis, cognitive difficulties and lower extremity weakness, which has been an ongoing problem. She was admitted back in early May and underwent bilateral breast reduction surgery on 05/26/17. She had a relatively unremarkable postoperative course with some left hip pain that began around that time and slowly started to worsen. She presented back to the hospital on 06/17/17 with worsening left hip pain. She was having some pain in her left groin as well and she was unable to bear weight on the left leg. She notes to me that her last MS flare was years ago and she notes a history of back pain in the cervical, thoracic, and lumbar spine as well as chronic pain "all over" related to her multiple sclerosis. While in the hospital in late May, early June, she had multiple studies done including CT of the lumbar spine, which showed no acute disease; CT of the pelvis, no acute disease; venous Doppler, which showed occlusive thrombosis of the left profunda femoral vein with minimal extension into the distal common femoral vein with complete thrombosis of the common femoral vein. She was put on Coumadin at that time. Lumbar spine MRI showed no acute changes, no evidence of demyelinating lesions. Films were reviewed. MRI of the pelvis showed fluid tracking in the deep soft tissues in the left thigh and prominent muscle edema in the left thigh, also edema bilaterally within the gluteal muscles, nonspecific finding, concerned for infectious or inflammatory myositis. CT of the chest was positive for pulmonary embolism in the right greater than left main stem pulmonary arteries as well as scattered lobar and segmental branches. Postcontrast lumbar spine showed no obvious osteomyelitis or diskitis. Thoracic spine MRI showed some what appeared to be chronic lesions at T2, T3, and T4 in the spine likely related to her history of MS, no change since 2013. The concern is at times that she could have an infectious myositis and Dr. Hardy was consulted, who concurred. In addition, she had a DVT in her left leg with CT angiogram evidence of pulmonary emboli for which she was started on Xarelto. She was also given antibiotics. She improved and was discharged to home on Xarelto, was continued on vancomycin q.12 hours and was to be followed by Dr. Hardy. She states that during the month of June , she continued to worsen with worsening weakness in her lower extremities as well as pain and weakness in the left lower extremity. She was readmitted to the hospital on 07/17/17. At that time, she was seen by Dr. Hardy as well as Dr. Keller. The concern then was that she had an asymmetric myositis and DVT. She also noted at that time some jaw pain in her masseter muscle with some concern for an autoimmune cause for her symptoms or viral cause. Dr. Hardy saw her again and suggested holding the antibiotics as there was some concern that the vancomycin may have caused an allergic reaction or drug- induced autoimmune process. It was noted at that time that she had recently been started on Tecfidera. She notes to me that she had been on it for sometime. It appears that her Tecfidera was adjusted when she was admitted to the hospital in March with facial paresthesias and increased weakness. At that time, she was also complaining of weakness and falling, which started rather suddenly in the overnight hours when she was ambulating back from the bathroom. She felt weak and fell to the ground. There was some concern for urinary tract infection at that time. She was rehydrated and Neurology was asked to see her who felt that the symptoms could be because of a flare. She had an MRI of the brain and C-spine, which showed old lesions, but no acute lesions. No change from February 2017. It was noted at that time that she was having some flushing with Tecfidera. The dose was decreased at that point for approximately 2 weeks and then returned to twice daily dosing. It was noted also that she had had a flu shot 2 weeks prior to admission. At that time , she noted left greater than right lower extremity weakness and left greater than right upper extremity weakness. MRI of the brain done on that visit was reviewed, films were reviewed and it shows pericallosal and periventricular white matter changes, which appeared to be stable from 2016. It was felt at that time that she had had pseudoexacerbation possibly from overexerting herself. Physical therapy was suggested. On this admission yesterday, she states that she was walking from her chair to the bathroom. She sat down to go to the bathroom and when she stood up, she said she had a difficult time standing up. She walked back to her chair and before she could sit down, she states that she fell backwards. She is unclear if she lost consciousness. She is unclear if she felt lightheaded at that time. After that, she was weak and could not get up. She denied any chest pain or palpitations and was on the floor for less than an hour because she was unable to stand. EMS arrived and brought her to the hospital. In the ER, CT of the brain was reviewed, no acute findings. CT of the cervical spine showed no acute findings. Lumbar spine CT, no acute findings. Pelvis x-ray was negative. Right knee x-ray was negative. Right lower leg x-ray was negative. CT angiogram of the chest showed no evidence of pulmonary emboli. When I spoke to her this morning, she states that she has been progressively getting weaker in the legs. She notes left greater than right leg weakness, which again has progressed. She notes no bladder or bowel incontinence. She notes no specific focal back pain that radiates down her legs, but does have generalized back pain, worse since the fall. She notes worsened numbness and tingling in her legs, bilateral, left greater than right and states that she is unable to walk. She also feels that she hurt her right ankle when she fell and it is in pain precluding her ability to walk as well. It was noted that there was a tiny avulsion fracture of the right lateral malleolus. Pain control was recommended. In addition, it was noted that she was on Coumadin 4 mg daily. I am unclear as to why she was switched from Xarelto to Coumadin at this time. She notes that she was given steroids at her last hospitalization, which were subsequently switched to p.o. prednisone. She had a taper during the month of July and took her last doses of prednisone recently. C-reactive protein on admission 9.96, CK-MB of 0.5 , troponin I of 0.00, total creatine kinase of 19, TSH of 0.45. PAST MEDICAL HISTORY: As noted includes DVT, possible myositis, urinary incontinence, migraines, depression, asthma, multiple sclerosis with optic neuritis in the past. Her last flare was years ago. She had recent breast reduction surgery. MEDICATIONS: Home medications include: 1. Coumadin 4 mg daily. 2. Viibryd 40 mg daily. 3. Senna 8.6 mg b.i.d. 4. Potassium chloride 20 mEq daily. 5. Oxycodone 5 mg q.4 hours p.r.n. pain. 6. Oxybutynin 5 mg p.o. q.a.m. and 10 mg q.p.m. 7. Prilosec 20 mg daily. 8. Bactroban ointment. 9. Concerta ER 36 mg daily. 10. Levothyroxine 75 mcg daily. 11. Tecfidera 240 mg p.o. b.i.d. 12. Baclofen 50 mg p.o. b.i.d. 13. Cimetidine 100 mg p.o. b.i.d. 14. Tylenol 650 q.4 hours. ALLERGIES: She has multiple allergies. Please see the chart for a full listing. They were reviewed. SOCIAL HISTORY: Denies tobacco, alcohol, or drug use. She is . She is disabled. FAMILY HISTORY: Mother at age 60 with coronary artery disease and diabetes. Father has hyperlipidemia. REVIEW OF SYSTEMS: Review of systems in 14-organ systems as noted above, otherwise negative. She does note chronic right eye vision changes. Notes chronic diplopia. Denies any problems swallowing or breathing. No chest pain, shortness of breath, dyspnea on exertion. She notes the weakness as noted above. She has chronic incontinence. No acute loss of bladder or bowel control during the fall. She has noted some mild dysuria. She continues to have multiple aches and pains as noted above as well as some numbness in her lower extremities, left greater than right. PHYSICAL EXAMINATION: Vital Signs: Temp of 97.9, pulse of 93, respiratory rate of 18, pulse ox 98%, blood pressure 121/69. In general, she is a well- nourished, well- developed female, sitting in her hospital bed. She is pleasant , well dressed, well groomed. Affect is flat. HEENT: Head and Neck: She is normocephalic, atraumatic. Sclerae are anicteric. Mucous membranes are moist. Oropharynx is clear. Nares are patent. Neck is supple. No thyromegaly. No carotid bruits. No meningismus. Chest: Clear to auscultation bilaterally. Cardiovascular: Regular rate and rhythm without murmurs. Abdomen: Nontender, obese. Extremities: There is no significant clubbing, cyanosis, or edema. Skin: She has multiple tattoos. Warm and dry. On neurologic exam, she is awake , alert, oriented x3. Her speech is fluent. She has a mildly flattened affect. Her recall of recent and remote events appears to be intact. Cranial nerves, pupils were equal, round, and reactive. She has subjective vision loss in the right eye. No homonymous hemianopsia noted. She has unilateral nystagmus with lateral gaze, sustained right eye nystagmus with right lateral gaze and sustained left eye nystagmus with left lateral gaze. She notes diplopia in all visual bliss. Face: Sensation is intact. Face is symmetric. Hearing is intact bilaterally. Tongue is midline. Palate raises symmetrically. Sternocleidomastoid and trapezius are 5/5. Her motor exam in the upper extremities 4+/5 with some give away in the upper extremities proximally and distally. In the lower extremities, she states that she is unable to lift her legs off of the bed. There was no significant effort. She notes pain in her distal right lower extremity and is unable to flex or extend. She is able to flex and extend her left lower extremity distally with poor effort and give away. Sensation she states is decreased to vibration and proprioception throughout in the lower extremities. She notes decreased light touch and increased pinprick on the right lower extremity to the thigh. She notes decreased pinprick on the left. In the upper extremities, she notes decreased pinprick on the right and increased pinprick on the left. DTRs were 1 + in the patella, biceps, brachioradialis bilaterally. Lower extremities were difficult, could not test her right ankle because of bandaging and pain. Her right knee tone was increased. Her right patella was 1+, left patella 1+. Tone increased throughout the lower extremities. Acaybi-tr-[id number], rapid alternating movements were significant for some mild past pointing. No obvious tremors. No resting tremors. Gait cannot be tested. She felt that she could not walk. LABORATORY DATA: Lab work includes a complete metabolic profile with a glucose of 130. Lactic acid of 2.4, down to 0.8. Magnesium 1.8. CK-MB of 0.5. Troponin I of 0.00. C-reactive protein of 9.96. Urine was negative. INR 1.93. D-dimer of greater than 1050. Her CBC with diff showed a white count of 9, neutrophils 93.7, lymphocyte percent of 3.9, absolute neutrophils of 8.4, absolute lymphocytes of 0.3. ASSESSMENT AND PLAN: Ms. Cisneros is a 47-year-old female with a complicated medical history including history of multiple sclerosis, lower extremity weakness, which has progressed over the last few months, possible autoimmune versus infectious myopathy, admitted back in June with worsening lower extremity weakness, left greater than right, initially was treated with vancomycin for her symptoms concerned for an infectious etiology, but that was stopped and she was treated with a round of steroids with a recent slow taper during the month of July. She finished her last dose a few days ago. She notes an acute on chronic weakening of her lower extremities, left greater than right. She was walking to the bathroom. When she got off from the toilet, she had a difficult time walking back to her chair. She "collapsed." She is unclear if she lost consciousness, felt dizzy, but no palpitations or chest pain. Very similar presentation back in March when Dr. Chance saw her. At that time, it was felt that she had a pseudoexacerbation. On lab work today, her CK and troponin are normal. CRP is elevated. My suspicion for myopathy at this point is low. I am going to check an aldolase level, but that will take a few days to come back. I see no strong evidence for rhabdo or muscle breakdown. Certainly with recent heavy steroids use, steroid myopathy is possible. She is now off of those. We can consider an EMG/nerve conduction study if she fails to improve. In addition, as an outpatient, we could consider a muscle biopsy if the etiology remains unclear. My plan is to check an MRI of her brain, C-spine, and T-spine given the fact that those are the areas that she has had lesions in the past. We will compare those with prior to look for any evidence of new MS lesions or acute inflammation, which could be explaining her symptoms. She has a history of chronic back pain. No significant low back pain. No radicular symptoms. She has chronic incontinence. No saddle anesthesia that would suggest a new acute lumbar spine pathology. I would hold on additional steroids at this time pending MRIs. In addition, because the symptoms have been ongoing for quite sometime, I am not sure the steroids would help unless there is evidence of an acute demyelinating lesion. She will need to be followed up closely as an outpatient. Her absolute lymphocyte count is low and we may want to consider a medicine other than Tecfidera in the near future. I will continue to follow her closely and make further recommendations as necessary. Thank you for the opportunity to participate in the care of this very interesting patient. [id number]/[facility] #: [id number] SHIRA
[2017-08-24] MEDS: Senna TAB PO SCH (21:55)
[2017-08-25] MEDS: Acetaminophen TAB* 325 MG PO PRN (02:18)
[2017-08-25] MEDS: Morphine INJ* 4 MG/ML 1 ML SYRINGE (NEW SYRINGE VERSION) IV PRN ×4 (02:18→19:42)
[2017-08-25] MEDS: Levothyroxine TAB* 75 MCG TAB PO SCH (05:35)
[2017-08-25 06:24] LABS: INR 2.29 (0.77-1.02)
[2017-08-25 06:26] LABS: ABS Basophils 0 10^3/ul (0-0.2); ABS Eosinophils 0.1 10^3/ul (0-0.6); ABS Lymphocytes 1.1 10^3/ul (1.0-4.8); ABS Monocytes 0.8 10^3/ul (0-0.8); ABS Neutrophils 4.3 10^3/ul (1.5-7.7); ABS Nucleated RBC 0 10^3/ul; Eosinophil % 2.1 % (0-6); Hematocrit 37 % (35-47); Lymphocyte % 17.4 % (25-47); Mean Corpuscular HGB Conc 33 g/dl (31-36); Mean Corpuscular Hemoglobin 29 pg (27-31); Mean Corpuscular Volume 87 fL (80-97); Mean Platelet Volume 8 um3 (7.4-10.4); Nucleated Red Blood Cells % 0; Platelet Count 297 10^3/ul (150-450); Red Blood Count 4.22 10^6/ul (4.0-5.4); Red Cell Distribution Width 16 % (10.5-15); White Blood Count 6.5 10^3/ul (3.5-10.8)
[2017-08-25 06:31] LABS: EGFR Non-African American 87.9 (>60)
[2017-08-25] MEDS ORDERED: LORazepam TAB(*) 1 MG PO ONE (07:30)
[2017-08-25] MEDS: Baclofen TAB* 10 MG PO SCH ×2 (09:04→22:31)
[2017-08-25] MEDS: DIMETHYL FUMARATE 240 MG PO SCH ×2 (09:06→22:35)
[2017-08-25] MEDS: Methylphenidate ER TAB* 18 MG PO SCH (09:07)
[2017-08-25] MEDS: Potassium Chlor TAB* 20 MEQ TAB.ER PO SCH (09:08)
[2017-08-25] MEDS: Omeprazole CAP* 20 MG PO SCH (09:08)
[2017-08-25] MEDS: Oxybutynin TAB* 5 MG PO SCH ×2 (09:08→16:42)
[2017-08-25] MEDS: Senna TAB PO SCH ×2 (09:09→22:31)
[2017-08-25] MEDS: VILAZODONE 40 MG PO SCH (09:10)
[2017-08-25] MEDS: Amantadine CAP* 100 MG PO SCH ×2 (09:39→22:31)
--- NOTE | 2017-08-25 12:50 | PN ---
Subjective Date of Service: 08/25/17 Interval History: Patient seen and examined at bedside. Denies fever, chills, shortness of breath , chest discomfort, N/V/D. Pt states that she has generalized weakness and continues to have right LE pain. Pt was encouraged to wear walking boot when ambulating, keep right leg elevated and use ice. Pt states that she is able to ambulate with the walking boot in place, but this is difficult as her "good" side is her right side and her weak side is the left side. Tele: Sinus rhythm to sinus tachy, rate 80-120's. Family History: Unchanged from Admission Social History: Unchanged from Admission Past Medical History: Unchanged from Admission Objective Active Medications: Acetaminophen (Tylenol Tab*) 650 mg PO Q4H PRN Reason: PAIN Amantadine HCl (Symmetrel Cap*) 100 mg PO BID BRENNAN Baclofen (Lioresal Tab*) 15 mg PO BID BRENNAN Dimethyl Fumarate (Tecfidera(Nf)) 240 mg PO BID BRENNAN Sodium Chloride (Ns 0.9% 1000 Ml*) 1,000 mls @ 0 mls/hr BOLUS .BOLUS DOSE BRENNAN PRN Reason: Wide Open Levothyroxine Sodium (Synthroid Tab*) 75 mcg PO 0600 BRENNAN Methylphenidate HCl (Concerta Er Tab*) 36 mg PO DAILY BRENNAN Morphine Sulfate (Morphine Inj (Syringe)*) 4 mg IV Q4H PRN Reason: PAIN Omeprazole (Prilosec Cap*) 20 mg PO DAILY BRENNAN Oxybutynin Chloride (Ditropan Tab*) 5 mg PO QAM BRENNAN Oxybutynin Chloride (Ditropan Tab*) 10 mg PO QPM BRENNAN Oxycodone HCl (Roxycodone Tab*) 5 mg PO Q4HR PRN Reason: PAIN Pharmacy Profile Note (Coumadin Daily Reminder*) 1 note FOLLOW UP 1700 BRENNAN Potassium Chloride (Klor Con Er Tab*) 20 meq PO DAILY BRENNAN Senna (Senokot Tab*) 1 tab PO BID BRENNAN Vilazodone HCl (Viibryd (Nf)) 40 mg PO DAILY BRENNAN Vital Signs - 8 hr 08/25/17 08/25/17 08/25/17 06:48 07:46 08:35 Temperature 98.1 F Pulse Rate 72 84 Respiratory 17 17 Rate Blood Pressure 114/67 (mmHg) O2 Sat by Pulse 98 Oximetry 08/25/17 08/25/17 08/25/17 09:14 10:19 11:51 Temperature 97.9 F Pulse Rate 103 Respiratory 17 16 18 Rate Blood Pressure 117/66 (mmHg) O2 Sat by Pulse 98 Oximetry Oxygen Devices in Use Now: None Appearance: NAD, laying in bed Ears/Nose/Mouth/Throat: Mucous Membranes Moist Respiratory: Symmetrical Chest Expansion and Respiratory Effort, Clear to Auscultation Cardiovascular: NL Sounds; No Murmurs; No JVD, RRR Abdominal: NL Sounds; No Tenderness; No Distention Extremities: No Edema Skin: No Rash or Ulcers Neurological: Alert and Oriented x 3, NL Muscle Strength and Tone Lines/Tubes/Other Access: Clean, Dry and Intact Peripheral IV - site benign Nutrition: Taking PO's Result Diagrams: 08/25/17 05:59 08/25/17 05:59 Additional Lab and Data: Assess/Plan/Problems-Billing Assessment: Ms. Beach is a 47 yo female with PMH significant for MS, depression, asthma, migraines, urinary inc., optic neuritis, hx DVT/PE, and recent treatment for myositis of the jaw and hip/thigh who presented to the emergency room with complaints of fall and weakness. - Patient Problems (1) Weakness Code(s): R53.1 - WEAKNESS SNOMED Code(s): 74180787 Comment: - Etiology not clear, onset seemed rather acute - ? Psudo MS exacerbation - Doubt this is secondary to infection (UA negative, no leukocytosis or fever, chest xray negative) - Neuro consult, input appreciated - MRI of the brain and spine, pending plan for 1800 today - Continue PT (2) Tachycardia Code(s): R00.0 - TACHYCARDIA, UNSPECIFIED SNOMED Code(s): 8365606 Comment: - Improving - Unclear etiology (no signs of infection, CTA chest negative for PE) - ? aspect of anxiety (3) Closed right ankle fracture Code(s): S82.891A - OTH FRACTURE OF RIGHT LOWER LEG, INIT FOR CLOS FX SNOMED Code(s): 73806898 Comment: - Right avulsion fracture of the right lateral malleolus - Ortho consult, input appreciated - Continue walking boot and Pain management (4) Multiple sclerosis Code(s): G35 - MULTIPLE SCLEROSIS SNOMED Code(s): 74939074 Comment: - Followed by Neurology outpatient on Tecfidera - Neurology consult, input appreciated - Hold on further steroids for now (5) History of DVT (deep vein thrombosis) Code(s): Z86.718 - PERSONAL HISTORY OF OTHER VENOUS THROMBOSIS AND EMBOLISM SNOMED Code(s): 439004711 Comment: - INR therapeutic today - Continue Warfarin (6) Urinary incontinence Code(s): R32 - UNSPECIFIED URINARY INCONTINENCE SNOMED Code(s): 953891505 Comment: - Continue oxybutynin (7) Hypothyroidism Code(s): E03.9 - HYPOTHYROIDISM, UNSPECIFIED SNOMED Code(s): 83277734 Comment: - TSH 0.45 - Continue levothyroxine (8) Asthma Code(s): J45.909 - UNSPECIFIED ASTHMA, UNCOMPLICATED SNOMED Code(s): 342802018 Comment: - No acute exacerbation (9) YASMINE (obstructive sleep apnea) Code(s): G47.33 - OBSTRUCTIVE SLEEP APNEA (ADULT) (PEDIATRIC) SNOMED Code(s): 14069319 Comment: - Continue CPAP (10) DVT prophylaxis Code(s): JCE8765 - SNOMED Code(s): 967361931 Comment: - Warfarin (11) DNR (do not resuscitate) Status and Disposition: Inpatient. Discharge to home when medically stable, may need to have assisted vs SNF at discharge.
--- NOTE | 2017-08-25 13:43 | PN ---
Progress Note - Progress Note Date of Service: 08/25/17 SOAP: Subjective: []Patient seen at bedside. She was able to bear weight in her walking boot to get tot eh commode, but has not otherwise attempted ambulation. Her pain ranges from 7-10/10, most severe with movement. She faces the obstacle of chronic left sided weakness due to MS which makes ambulation with a painful RLE difficult. Objective: [] Vital Signs Temp 97.9 F 08/25/17 11:51 Pulse 103 08/25/17 11:51 Resp 18 08/25/17 11:51 BP 117/66 08/25/17 11:51 Pulse Ox 98 08/25/17 11:51 Intake & Output 08/24/17 08/25/17 08/25/17 18:59 06:59 18:59 Intake Total 1520 0 360 Output Total 300 0 Balance 1220 0 360 Intake: IV Fluids 1000 NS (0.9%) 1000 Oral 520 0 360 Output: Urine 300 0 Other: Estimated Void Large Medium # Bowel Movements 0 # Voids 1 1 2 Laboratory Last Values WBC 6.5 10^3/ul (3.5-10.8) 08/25/17 05:59 RBC 4.22 10^6/ul (4.0-5.4) 08/25/17 05:59 Hgb 12.0 g/dl (12.0-16.0) 08/25/17 05:59 Hct 37 % (35-47) 08/25/17 05:59 MCV 87 fL (80-97) 08/25/17 05:59 MCH 29 pg (27-31) 08/25/17 05:59 MCHC 33 g/dl (31-36) 08/25/17 05:59 RDW 16 % (10.5-15) H 08/25/17 05:59 Plt Count 297 10^3/ul (150-450) 08/25/17 05:59 MPV 8 um3 (7.4-10.4) 08/25/17 05:59 Neut % (Auto) 67.3 % (38-83) 08/25/17 05:59 Lymph % (Auto) 17.4 % (25-47) L 08/25/17 05:59 [place] % (Auto) 12.7 % (0-7) H 08/25/17 05:59 Eos % (Auto) 2.1 % (0-6) 08/25/17 05:59 Baso % (Auto) 0.5 % (0-2) 08/25/17 05:59 Absolute Neuts (auto) 4.3 10^3/ul (1.5-7.7) 08/25/17 05:59 Absolute Lymphs (auto) 1.1 10^3/ul (1.0-4.8) 08/25/17 05:59 Absolute Monos (auto) 0.8 10^3/ul (0-0.8) 08/25/17 05:59 Absolute Eos (auto) 0.1 10^3/ul (0-0.6) 08/25/17 05:59 Absolute Basos (auto) 0 10^3/ul (0-0.2) 08/25/17 05:59 Absolute Nucleated RBC 0 10^3/ul 08/25/17 05:59 Nucleated RBC % 0 08/25/17 05:59 INR (Anticoag Therapy) 2.29 (0.77-1.02) H 08/25/17 05:59 APTT 35.1 seconds (26.0-36.3) 08/23/17 16:05 D-Dimer, Quantitative > 1050 ng/mL (Less Than 230) H 08/23/17 16:05 Sodium 139 mmol/L (133-145) 08/25/17 05:59 Potassium 3.7 mmol/L (3.5-5.0) 08/25/17 05:59 Chloride 107 mmol/L (101-111) 08/25/17 05:59 Carbon Dioxide 26 mmol/L (22-32) 08/25/17 05:59 Anion Gap 6 mmol/L (2-11) 08/25/17 05:59 BUN 3 mg/dL (6-24) L 08/25/17 05:59 Creatinine 0.71 mg/dL (0.51-0.95) 08/25/17 05:59 Est GFR ( Amer) 113.0 (>60) 08/25/17 05:59 Est GFR (Non-Af Amer) 87.9 (>60) 08/25/17 05:59 BUN/Creatinine Ratio 4.2 (8-20) L 08/25/17 05:59 Glucose 134 mg/dL (70-100) H 08/25/17 05:59 Lactic Acid 0.8 mmol/L (0.5-2.0) 08/23/17 21:55 Calcium 9.1 mg/dL (8.6-10.3) 08/25/17 05:59 Magnesium 1.8 mg/dL (1.9-2.7) L 08/25/17 05:59 Total Bilirubin 0.30 mg/dL (0.2-1.0) 08/23/17 16:05 AST 16 U/L (13-39) 08/23/17 16:05 ALT 17 U/L (7-52) 08/23/17 16:05 Alkaline Phosphatase 91 U/L (34-104) 08/23/17 16:05 Total Creatine Kinase 19 U/L (10-223) 08/23/17 16:05 CK-MB (CK-2) 0.5 ng/mL (0.6-6.3) L 08/23/17 16:05 Troponin I 0.00 ng/mL (<0.04) 08/23/17 16:05 C-Reactive Protein 9.96 mg/L (< 5.00) H 08/23/17 16:05 B-Natriuretic Peptide 20 pg/mL (-100) 08/23/17 16:05 Total Protein 6.7 g/dL (6.4-8.9) 08/23/17 16:05 Albumin 4.0 g/dL (3.2-5.2) 08/23/17 16:05 Globulin 2.7 g/dL (2-4) 08/23/17 16:05 Albumin/Globulin Ratio 1.5 (1-3) 08/23/17 16:05 Lipase < 10 U/L (11.0-82.0) L 08/23/17 16:05 TSH 0.45 mcIU/mL (0.34-5.60) 08/23/17 16:05 Urine Color Straw 08/23/17 18:16 Urine Appearance Clear 08/23/17 18:16 Urine pH 8.0 (5-9) 08/23/17 18:16 Ur Specific [place] 1.006 (1.010-1.030) L 08/23/17 18:16 Urine Protein Negative (Negative) 08/23/17 18:16 Urine Ketones Negative (Negative) 08/23/17 18:16 Urine Blood Negative (Negative) 08/23/17 18:16 Urine Nitrate Negative (Negative) 08/23/17 18:16 Urine Bilirubin Negative (Negative) 08/23/17 18:16 Urine Urobilinogen Negative (Negative) 08/23/17 18:16 Ur Leukocyte Esterase Negative (Negative) 08/23/17 18:16 Urine Glucose Negative (Negative) 08/23/17 18:16 General: Laying comfortable in bed, calm and cooperative RLE: Skin is intact. Swelling of the lateral ankle with slight ecchymosis. Tenderness of lateral distal ankle and pain with any ROM of ankle. 2+ DP pulse. Sensation is intact to light touch distally.Calf supple and nontender without erythema or edema Assessment: [] Avulsion fracture of the right lateral malleolus Plan: []- Continue walking boot, WBAT - F/U in clinic next week with Dr. Rangel
[2017-08-25] MEDS ORDERED: Gadoteridol* (CONTRAST) 279.3 MG/ML 10 ML IV ONE (18:26)
--- NOTE | 2017-08-25 22:17 | CONS ---
NEUROLOGY CONSULT FOLLOWUP: DATE OF CONSULT: 08/25/17 LOCATION: She is in room 415. HOSPITALIST: Lula Lyles NP CHIEF COMPLAINT: Weakness, fall. INTERVAL HISTORY: Since yesterday, Karla has no new complaints. She reports that she has been getting weak for at least a week or two before this and had been tried on oral steroids, which was just started a few days before she fell and had a chip fracture of her ankle. She was hospitalized also about several times in the last couple of months. She had infectious myositis and was treated with antibiotics and also had neutropenia. She had pulmonary emboli and was transitioned to Coumadin from [facility]. She has been getting home physical therapy up until a couple of weeks ago. She says she was started on oral prednisone because of leg weakness, she believes, by Dr. Keller, but she is not a very good historian. MEDICATIONS: Reviewed and she is on: 1. Tecfidera 240 mg p.o. b.i.d. 2. Levothyroxine 75 mcg p.o. q. day. 3. Concerta ER 36 mg p.o. q. day. 4. Amantadine 100 mg p.o. b.i.d. 5. Baclofen mg p.o. b.i.d. 6. Omeprazole 20 mg p.o. q. day. 7. Oxybutynin 10 mg p.o. q.p.m. and 5 mg p.o. q.a.m. 8. Oxycodone 5 mg p.o. q.4 hours p.r.n. pain. 9. Coumadin. 10. Viibryd 40 mg p.o. q. day. PHYSICAL EXAM: She is a bit overweight, possibly cushingoid, lying in her hospital bed. She has been afebrile throughout this hospital stay. Blood pressure most recently 117/66, heart rate running about 100 and regular, respiratory rate 18, oxygen saturation is 98% on room air. The heart is in a regular rhythm. Neurologically, she has bilateral internuclear ophthalmoplegias. Facial musculature is symmetric. Speech is mildly dysarthric. Motor exam reveals spasticity and weakness in both legs with less than antigravity leg weakness. She has mild upper extremity spasticity and weakness in the grade 4 range. Finger taps are clumsy bilaterally. She is a poor historian with poor memory. DIAGNOSTIC STUDIES/LAB DATA: Notable for a normal CBC; lymphocyte percentage is low at 3.9% yesterday and up to 17.4% today; absolute lymphocytes 0.3 on admission, 1.1 today. Of note, she did receive a bolus of Solu-Medrol when she came in. Chemistries unremarkable, lactic acid was 2.4 the day of admission, down to 0.8 later that day. Magnesium is a little bit low at 1.8. Liver enzymes are normal on the day of admission and troponin 0. Urinalysis on 08/23/17 unremarkable. MRI of the brain is pending. CT angiogram of the chest and thorax on 08/23/17 interpreted as no evidence of acute pulmonary emboli and with interval lysis of previously identified pulmonary emboli. IMPRESSION AND PLAN: Secondary progressive multiple sclerosis. There is no current evidence of an infection. She has had numerous falls over the last several years and multiple times her disposition to live independently has been questioned. We will wait and see if her MRI shows any new lesions. She is going to need rehab for her ankle and that will be complicated by her multiple sclerosis. Her Tecfidera may need to be decreased or changed if her lymphocyte count remains low and particularly if she has entered secondary progressive phase in her disease. I do not get a clear history of any relapses in the last couple of years. I will continue to follow along with you. [id number]/[facility] #: [id number] SHIRA
[2017-08-25] MEDS: oxyCODONE TAB* 5 MG TAB PO PRN (22:32)
[2017-08-26] MEDS: Levothyroxine TAB* 75 MCG TAB PO SCH (05:42)
[2017-08-26] MEDS: oxyCODONE TAB* 5 MG TAB PO PRN ×4 (05:42→20:29)
[2017-08-26] MEDS: Morphine INJ* 4 MG/ML 1 ML SYRINGE (NEW SYRINGE VERSION) IV PRN ×4 (05:53→20:28)
[2017-08-26 06:55] LABS: ABS Basophils 0 10^3/ul (0-0.2); ABS Eosinophils 0.1 10^3/ul (0-0.6); ABS Lymphocytes 1.2 10^3/ul (1.0-4.8); ABS Monocytes 0.5 10^3/ul (0-0.8); ABS Neutrophils 3.1 10^3/ul (1.5-7.7); ABS Nucleated RBC 0 10^3/ul; Eosinophil % 1.4 % (0-6); Hematocrit 37 % (35-47); Hemoglobin 12.5 g/dl (12.0-16.0); Lymphocyte % 24.1 % (25-47); Mean Corpuscular HGB Conc 34 g/dl (31-36); Mean Corpuscular Hemoglobin 29 pg (27-31); Mean Corpuscular Volume 86 fL (80-97); Mean Platelet Volume 8 um3 (7.4-10.4); Nucleated Red Blood Cells % 0.1; Platelet Count 281 10^3/ul (150-450); Red Blood Count 4.29 10^6/ul (4.0-5.4); Red Cell Distribution Width 16 % (10.5-15); White Blood Count 4.8 10^3/ul (3.5-10.8)
[2017-08-26 07:01] LABS: INR 1.85 (0.77-1.02)
[2017-08-26] MEDS: Senna TAB PO SCH ×2 (08:53→20:30)
[2017-08-26] MEDS: Omeprazole CAP* 20 MG PO SCH (08:53)
[2017-08-26] MEDS: Amantadine CAP* 100 MG PO SCH ×2 (08:54→20:29)
[2017-08-26] MEDS: DIMETHYL FUMARATE 240 MG PO SCH ×2 (08:54→20:30)
[2017-08-26] MEDS: VILAZODONE 40 MG PO SCH (08:54)
[2017-08-26] MEDS: Methylphenidate ER TAB* 18 MG PO SCH (08:55)
[2017-08-26] MEDS: Potassium Chlor TAB* 20 MEQ TAB.ER PO SCH (08:55)
[2017-08-26] MEDS: Oxybutynin TAB* 5 MG PO SCH ×2 (08:56→18:36)
[2017-08-26] MEDS: Baclofen TAB* 10 MG PO SCH ×2 (08:56→20:30)
[2017-08-26] MEDS ORDERED: Magnesium Sulfate 2 GM IV* 2 GM/50 ML BAG IVPB ONE (09:09)
--- NOTE | 2017-08-26 10:21 | PN ---
Progress Note - Progress Note Date of Service: 08/26/17 SOAP: Subjective: []Patient seen at bedside. Right ankle is painful with movement. She has ambulate to the bedside commode but has walked no further, does wear walking boot for ambulation. Denies CP, SOB. Objective: []General: Laying comfortable in bed, calm and cooperative RLE: Patient is icing lateral and medial ankle. Skin is intact. Lateral ankle with ecchymosis. Tenderness of lateral distal ankle and pain with any ROM of ankle. 1+ DP pulse, foot with 1+ edema. Sensation is intact to light touch distally. Calf supple and nontender without erythema or edema. Vital Signs Temp 97.6 F 08/26/17 07:31 Pulse 74 08/26/17 07:31 Resp 18 08/26/17 10:05 BP 115/69 08/26/17 07:31 Pulse Ox 99 08/26/17 07:31 Intake & Output 08/25/17 08/26/17 08/26/17 18:59 06:59 18:59 Intake Total 1080 240 150 Balance 1080 240 150 Weight 194 lb 1.6 oz Intake: Oral 1080 240 150 Other: Estimated Void Medium Large # Bowel Movements 0 # Voids 1 1 Laboratory Last Values WBC 4.8 10^3/ul (3.5-10.8) 08/26/17 06:20 RBC 4.29 10^6/ul (4.0-5.4) 08/26/17 06:20 Hgb 12.5 g/dl (12.0-16.0) 08/26/17 06:20 Hct 37 % (35-47) 08/26/17 06:20 MCV 86 fL (80-97) 08/26/17 06:20 MCH 29 pg (27-31) 08/26/17 06:20 MCHC 34 g/dl (31-36) 08/26/17 06:20 RDW 16 % (10.5-15) H 08/26/17 06:20 Plt Count 281 10^3/ul (150-450) 08/26/17 06:20 MPV 8 um3 (7.4-10.4) 08/26/17 06:20 Neut % (Auto) 64.6 % (38-83) 08/26/17 06:20 Lymph % (Auto) 24.1 % (25-47) L 08/26/17 06:20 [place] % (Auto) 9.5 % (0-7) H 08/26/17 06:20 Eos % (Auto) 1.4 % (0-6) 08/26/17 06:20 Baso % (Auto) 0.4 % (0-2) 08/26/17 06:20 Absolute Neuts (auto) 3.1 10^3/ul (1.5-7.7) 08/26/17 06:20 Absolute Lymphs (auto) 1.2 10^3/ul (1.0-4.8) 08/26/17 06:20 Absolute Monos (auto) 0.5 10^3/ul (0-0.8) 08/26/17 06:20 Absolute Eos (auto) 0.1 10^3/ul (0-0.6) 08/26/17 06:20 Absolute Basos (auto) 0 10^3/ul (0-0.2) 08/26/17 06:20 Absolute Nucleated RBC 0 10^3/ul 08/26/17 06:20 Nucleated RBC % 0.1 08/26/17 06:20 INR (Anticoag Therapy) 1.85 (0.77-1.02) H 08/26/17 06:20 APTT 35.1 seconds (26.0-36.3) 08/23/17 16:05 D-Dimer, Quantitative > 1050 ng/mL (Less Than 230) H 08/23/17 16:05 Sodium 139 mmol/L (133-145) 08/25/17 05:59 Potassium 3.7 mmol/L (3.5-5.0) 08/25/17 05:59 Chloride 107 mmol/L (101-111) 08/25/17 05:59 Carbon Dioxide 26 mmol/L (22-32) 08/25/17 05:59 Anion Gap 6 mmol/L (2-11) 08/25/17 05:59 BUN 3 mg/dL (6-24) L 08/25/17 05:59 Creatinine 0.71 mg/dL (0.51-0.95) 08/25/17 05:59 Est GFR ( Amer) 113.0 (>60) 08/25/17 05:59 Est GFR (Non-Af Amer) 87.9 (>60) 08/25/17 05:59 BUN/Creatinine Ratio 4.2 (8-20) L 08/25/17 05:59 Glucose 134 mg/dL (70-100) H 08/25/17 05:59 Lactic Acid 0.8 mmol/L (0.5-2.0) 08/23/17 21:55 Calcium 9.1 mg/dL (8.6-10.3) 08/25/17 05:59 Magnesium 1.8 mg/dL (1.9-2.7) L 08/26/17 06:20 Total Bilirubin 0.30 mg/dL (0.2-1.0) 08/23/17 16:05 AST 16 U/L (13-39) 08/23/17 16:05 ALT 17 U/L (7-52) 08/23/17 16:05 Alkaline Phosphatase 91 U/L (34-104) 08/23/17 16:05 Total Creatine Kinase 19 U/L (10-223) 08/23/17 16:05 CK-MB (CK-2) 0.5 ng/mL (0.6-6.3) L 08/23/17 16:05 Troponin I 0.00 ng/mL (<0.04) 08/23/17 16:05 C-Reactive Protein 9.96 mg/L (< 5.00) H 08/23/17 16:05 B-Natriuretic Peptide 20 pg/mL (-100) 08/23/17 16:05 Total Protein 6.7 g/dL (6.4-8.9) 08/23/17 16:05 Albumin 4.0 g/dL (3.2-5.2) 08/23/17 16:05 Globulin 2.7 g/dL (2-4) 08/23/17 16:05 Albumin/Globulin Ratio 1.5 (1-3) 08/23/17 16:05 Lipase < 10 U/L (11.0-82.0) L 08/23/17 16:05 TSH 0.45 mcIU/mL (0.34-5.60) 08/23/17 16:05 Urine Color Straw 08/23/17 18:16 Urine Appearance Clear 08/23/17 18:16 Urine pH 8.0 (5-9) 08/23/17 18:16 Ur Specific [place] 1.006 (1.010-1.030) L 08/23/17 18:16 Urine Protein Negative (Negative) 08/23/17 18:16 Urine Ketones Negative (Negative) 08/23/17 18:16 Urine Blood Negative (Negative) 08/23/17 18:16 Urine Nitrate Negative (Negative) 08/23/17 18:16 Urine Bilirubin Negative (Negative) 08/23/17 18:16 Urine Urobilinogen Negative (Negative) 08/23/17 18:16 Ur Leukocyte Esterase Negative (Negative) 08/23/17 18:16 Urine Glucose Negative (Negative) 08/23/17 18:16 Assessment: [] Avulsion fracture of the right lateral malleolus Plan: []- Continue walking boot, WBAT - F/U in clinic next week with Dr. Rangel
--- NOTE | 2017-08-26 11:28 | RAD ---
HISTORY: Multiple sclerosis, weakness COMPARISONS: March 30, 2017 TECHNIQUE: The following sequences were obtained of the head: Sagittal FLAIR images, axial T2-weighted images, axial FLAIR images, axial susceptibility weighted images, axial T1-weighted images. Additionally, axial diffusion-weighted images were obtained with calculated apparent diffusion coefficients. FINDINGS: HEMORRHAGE/INFARCT: There is no hemorrhage or acute infarct. MASSES/SHIFT: There is no mass or shift. EXTRA-AXIAL SPACES/MENINGES: There are no extra-axial fluid collections. SULCI AND VENTRICLES: The sulci and ventricles are normal in size and position for the patient's stated age. CEREBRUM: There is multifocal confluent elevated T2/FLAIR signal in the periventricular and subcortical white matter. When compared to the March 30, 2017 examination, the number of lesions and extent of disease is similar. BRAINSTEM: There is minimal elevated T2/FLAIR signal within the pontine white matter ampulla, similar to the previous examination CEREBELLUM: There is minimally elevated T2/FLAIR signal within the right inferior cerebellum, stable. The cerebellar tonsils are normal in size and position. SELLA: The sella is normal. PINEAL: The pineal region is clear. CP ANGLE/TEMPORAL BONES: The labyrinthine structures are grossly normal. VESSELS: Normal flow-voids are noted within the visualized vertebral vasculature. DIFFUSION ABNORMALITIES: There are no diffusion abnormalities. PARANASAL SINUSES/MASTOIDS: The paranasal sinuses are clear. ORBITS: The orbits are unremarkable. BONES AND SOFT TISSUE: No bone or soft tissue abnormalities are noted. OTHER: None IMPRESSION: 1. AGAIN NOTED IS MULTIFOCAL ELEVATED T2/FLAIR SIGNAL IN THE CEREBRAL HEMISPHERES, BRAINSTEM, AND CEREBELLUM CONSISTENT WITH DEMYELINATING DISEASE GIVEN THE HISTORY OF MULTIPLE SCLEROSIS. 2. THERE IS NO SIGNIFICANT CHANGE COMPARED TO MARCH 30, 2017
--- NOTE | 2017-08-26 11:41 | RAD ---
HISTORY: Multiple sclerosis COMPARISONS: March 04, 2016 TECHNIQUE: The following sequences were obtained of the cervical spine: Sagittal and axial T1- and T2-weighted images, sagittal STIR images, axial gradient echo images. FINDINGS: BRAIN AND SPINAL CORD: There are multiple CORD lesions. Some C2, C2-C3, C3, and C5-C6, similar to the previous examination. ALIGNMENT: The alignment is normal. VERTEBRAL BODIES: There is anterolateral marginal osteophyte formation at C5-C6. JOINTS: There is uncovertebral hypertrophy at C5-C6. MUSCULATURE: Unremarkable INTERVERTEBRAL DISCS: There is diffuse loss of intervertebral disc height and T2 signal throughout the spine. AXIAL IMAGES: C2-C3: There is no disc herniation, spinal stenosis, or neuroforaminal narrowing. C3-C4: There is leftward the right uncovertebral atrophy. There is moderate left neural foraminal narrowing. There is no significant central canal stenosis. C4-C5: There is no disc herniation, spinal stenosis, or neuroforaminal narrowing. C5-C6: There is broad-based disc osteophyte complex with bilateral uncovertebral hypertrophy. There is moderate to severe bilateral neuroforaminal narrowing. There is mild narrowing of the central canal. C6-C7: There is no disc herniation, spinal stenosis, or neuroforaminal narrowing. C7-T1: There is no disc herniation, spinal stenosis, or neuroforaminal narrowing. SOFT TISSUES: The visualized soft tissues of the neck are unremarkable. OTHER: None. IMPRESSION: 1. AGAIN NOTED ARE MULTIPLE CORD LESIONS MOST CONSISTENT WITH DEMYELINATING PLAQUE GIVEN THE HISTORY OF MULTIPLE SCLEROSIS. 2. THERE HAS BEEN NO SIGNIFICANT CHANGE FROM 2015. 3. AGAIN NOTED IS DEGENERATIVE DISC DISEASE AND OSTEOARTHRITIS MOST PRONOUNCED AT C5-C6
--- NOTE | 2017-08-26 11:59 | RAD ---
HISTORY: Multiple sclerosis COMPARISONS: June 23, 2017 TECHNIQUE: The following sequences were obtained of the thoracic spine: Sagittal and axial T1- and T2-weighted images, coronal T2-weighted images, and sagittal STIR images. Additionally, axial and sagittal T1 weighted images were obtained after contrast enhancement with a gadolinium-based intravenous contrast agent.. FINDINGS: Localization is based on counting from C2 SPINAL CORD, [place], AND [place] EQUINA: There is elevated T2/STIR signal opposite of T2 and T3 and T4, as well as along the conus at T12. Accounting for differences in technique, these are stable from the previous examination. There is no associated abnormal enhancement. ALIGNMENT: The alignment is normal. VERTEBRAL BODIES: The bones are normal in signal intensity. The vertebral bodies are preserved in height. JOINTS: There is no subluxation or dislocation. MUSCULATURE: Unremarkable INTERVERTEBRAL DISCS: There is mild loss of intervertebral disc height and T2 signal throughout the spine. AXIAL IMAGES: There is no central canal stenosis or neuroforaminal narrowing. SOFT TISSUES: The visualized soft tissues of the chest and upper abdomen are unremarkable. OTHER: There is no abnormal enhancement. IMPRESSION: 1. AGAIN NOTED ARE SEVERAL LESIONS OF THE UPPER THORACIC CORD AND CONUS. THESE ARE MOST CONSISTENT WITH DEMYELINATING PLAQUE GIVEN THE HISTORY OF MULTIPLE SCLEROSIS. 2. THERE IS BEEN NO SIGNIFICANT CHANGE WHEN COMPARED TO JUNE 23, 2017. 3. THERE IS NO ASSOCIATED ABNORMAL ENHANCEMENT TO SUGGEST ACTIVE INFLAMMATION.
--- NOTE | 2017-08-26 12:38 | PN ---
Subjective Date of Service: 08/26/17 Interval History: She notes continued back pain overnight into this am. No radiations, localized in the lower back. She continues to have right ankle pain, weakness throughout, legs greater than arms. She notes some difficulty swallowing solids at times. Continued patchy sensory loss. There have been issues with IV access overnight. She did get her MRI scans: MRI T-Spine w/wo: Films reviewed. Old demyelinating lesions, no significant change from prior. No enhancing lesions MRI C-spine w/wo: Films reviewed. C5-6 degenerative changes. Lesions noted, no change from prior in . No enhancing lesions MRI Brain w/wo: Films reviewed. Extensive white matter changes associated with MS noted. No significant change from . No enhancing lesions. Family History: Unchanged from Admission Social History: Unchanged from Admission Past Medical History: Unchanged from Admission Objective Active Medications: Acetaminophen (Tylenol Tab*) 650 mg PO Q4H PRN PRN Reason: PAIN Last Admin: 08/25/17 02:18 Dose: 650 mg Amantadine HCl (Symmetrel Cap*) 100 mg PO BID [facility] Last Admin: 08/26/17 08:54 Dose: 100 mg Baclofen (Lioresal Tab*) 15 mg PO BID [facility] Last Admin: 08/26/17 08:56 Dose: 15 mg Dimethyl Fumarate (Tecfidera(Nf)) 240 mg PO BID [facility] Last Admin: 08/26/17 08:54 Dose: 240 mg Levothyroxine Sodium (Synthroid Tab*) 75 mcg PO 0600 [facility] Last Admin: 08/26/17 05:42 Dose: 75 mcg Methylphenidate HCl (Concerta Er Tab*) 36 mg PO DAILY [facility] Last Admin: 08/26/17 08:55 Dose: 36 mg Morphine Sulfate (Morphine Inj (Syringe)*) 4 mg IV Q4H PRN PRN Reason: PAIN Last Admin: 08/26/17 10:05 Dose: 4 mg Omeprazole (Prilosec Cap*) 20 mg PO DAILY [facility] Last Admin: 08/26/17 08:53 Dose: 20 mg Oxybutynin Chloride (Ditropan Tab*) 5 mg PO QAM [facility] Last Admin: 08/26/17 08:56 Dose: 5 mg Oxybutynin Chloride (Ditropan Tab*) 10 mg PO QPM [facility] Last Admin: 08/25/17 16:42 Dose: 10 mg Oxycodone HCl (Roxycodone Tab*) 5 mg PO Q4HR PRN PRN Reason: PAIN Last Admin: 08/26/17 10:05 Dose: 5 mg Pharmacy Profile Note (Coumadin Daily Reminder*) 1 note FOLLOW UP 1700 [facility] Last Admin: 08/25/17 16:42 Dose: 1 note Potassium Chloride (Klor Con Er Tab*) 20 meq PO DAILY [facility] Last Admin: 08/26/17 08:55 Dose: 20 meq Senna (Senokot Tab*) 1 tab PO BID [facility] Last Admin: 08/26/17 08:53 Dose: 1 tab Vilazodone HCl (Viibryd (Nf)) 40 mg PO DAILY [facility] Last Admin: 08/26/17 08:54 Dose: 40 mg Vital Signs 08/25/17 08/25/17 08/25/17 15:00 15:24 15:40 Temperature 98.0 F Pulse Rate 119 Respiratory 16 20 16 Rate Blood Pressure 123/74 (mmHg) O2 Sat by Pulse 99 Oximetry 08/25/17 08/25/17 08/25/17 19:38 19:41 19:42 Temperature 98.3 F Pulse Rate 126 Respiratory 20 18 18 Rate Blood Pressure 121/65 (mmHg) O2 Sat by Pulse 98 Oximetry 08/25/17 08/25/17 08/25/17 20:00 22:32 22:57 Temperature Pulse Rate Respiratory 18 18 18 Rate Blood Pressure (mmHg) O2 Sat by Pulse Oximetry 08/25/17 08/26/17 08/26/17 23:43 00:35 03:14 Temperature 98.2 F 98.1 F Pulse Rate 94 80 Respiratory 18 16 16 Rate Blood Pressure 132/71 128/74 (mmHg) O2 Sat by Pulse 98 97 Oximetry 08/26/17 08/26/17 08/26/17 05:42 05:53 07:31 Temperature 97.6 F Pulse Rate 74 Respiratory 16 16 16 Rate Blood Pressure 115/69 (mmHg) O2 Sat by Pulse 99 Oximetry 08/26/17 08/26/17 08/26/17 08:00 10:05 11:02 Temperature Pulse Rate Respiratory 18 18 18 Rate Blood Pressure (mmHg) O2 Sat by Pulse Oximetry 08/26/17 11:03 Temperature Pulse Rate Respiratory 18 Rate Blood Pressure (mmHg) O2 Sat by Pulse Oximetry Oxygen Devices in Use Now: None Neurology Exam: General: HEENT: Normocephalic/atraumatic, sclera anicteric, mucous membranes moist Neck: Supple Chest: Clear to auscultation bilaterally Cardiovascular: Regular rate and rhythm without murmurs, rubs, gallops Abdomen: Soft, nontender/nondistended Extremities: No clubbing, cyanosis, or edema. Multiple tattoos. Swelling of the right ankle, painful with movement Neurological Findings: Awake, Alert, Oriented x3 Speech: Mild dysarthria, fluent Cranial Nerve: PEERL, EOM intact with lateral gaze nystagmus bilaterally, ?CYNDY bilaterally, face symmetric bilaterally, facial sensation intact, hearing intact to finger rub bilaterally, palate elevates symmetrically, tongue midline Motor: 4-/5 LEs with minimal movement of the right ankle secondary to pain. Back pain limits the exam. 4 to 4+/5 UEs bilaterally. 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 Admitted with worsening weakness of the Lower extremities, falls, patchy sensory loss and some difficulty swallowing this am. My suspicion for an acute MS flair is low and her symptoms are more likely associated with the progressive decline seen with secondary progressive MS. For the time being, I would continue her Tecfidera although in the setting of likely secondary progressive and questionably low lymphocyte count (improved today--could have been dilutional) this is something that we can consider as an outpatient. No enhancing lesions on MRI --Hold on additional steroids at this point. She has recently completed a prolonged course of steroids and there are no enhancing lesions on MRI, steroids are likely to cause more harm than good. --I will order swallowing evaluation given reported dysphagia --PT/OT in house and need to consider options for longer term therapy. --Discharge planning: I am concerned that she may be unsafe at home at this point --Ortho following for her right ankle fracture. Will need PT for this as well. Using walking boot
--- NOTE | 2017-08-26 13:03 | RAD ---
HISTORY: Multiple sclerosis, possible FLAIR COMPARISONS: August 25, 2017 TECHNIQUE: The following sequences were obtained of the cervical spine: Sagittal and axial T1-weighted images after contrast enhancement with a gadolinium-based intravenous contrast agent.. FINDINGS: The study is read in conjunction with the examination of August 25, 2017. The cervical cord lesions noted on the earlier examination do not enhance. There is no abnormal enhancement elsewhere. OTHER: None. IMPRESSION: THE CERVICAL CORD LESIONS DESCRIBED ON THE AUGUST 25, 2014 EXAMINATION DO NOT ENHANCE
--- NOTE | 2017-08-26 13:16 | RAD ---
HISTORY: Multiple sclerosis COMPARISONS: August 25, 2017 TECHNIQUE: The following sequences were obtained of the head: Sagittal, axial, coronal T1-weighted images were obtained after contrast enhancement with gadolinium based intravenous contrast agent. FINDINGS: This study is read in conjunction with the MRI of August 25, 2017. The white matter lesions noted on the earlier examination do not enhance. Elsewhere, there is no abnormal enhancement. IMPRESSION: THE WHITE MATTER LESIONS NOTED ON THE AUGUST 25, 2012 EXAMINATION DO NOT ENHANCE.
--- NOTE | 2017-08-26 15:08 | PN ---
Subjective Date of Service: 08/26/17 Interval History: Patient seen and examined at bedside. Denies fever, chills, shortness of breath , chest discomfort, N/V/D. Pt states that she continues to have generalized weakness and right ankle pain. She also reports difficulty swallowing over the last few days, but per [facility] staff she was able to take pills without difficulty. Pt also reports feeling like she is unable to empty her bladder. Had a long discussion with Pt about need for [facility] until aide services are able to be increased and she denies the need for increased help at home, she feels she will be able to manage at home. She is currently a 2 max asst to get up. Will ask psych to eval for competency to decline [facility] at discharge. Tele: Sinus tach, rate 100's. Family History: Unchanged from Admission Social History: Unchanged from Admission Past Medical History: Unchanged from Admission Objective Active Medications: Acetaminophen (Tylenol Tab*) 650 mg PO Q4H PRN Reason: PAIN Amantadine HCl (Symmetrel Cap*) 100 mg PO BID [facility] Baclofen (Lioresal Tab*) 15 mg PO BID [facility] Dimethyl Fumarate (Tecfidera(Nf)) 240 mg PO BID [facility] Levothyroxine Sodium (Synthroid Tab*) 75 mcg PO 0600 [facility] Methylphenidate HCl (Concerta Er Tab*) 36 mg PO DAILY [facility] Morphine Sulfate (Morphine Inj (Syringe)*) 4 mg IV Q4H PRN Reason: PAIN Omeprazole (Prilosec Cap*) 20 mg PO DAILY [facility] Oxybutynin Chloride (Ditropan Tab*) 5 mg PO QAM [facility] Oxybutynin Chloride (Ditropan Tab*) 10 mg PO QPM [facility] Oxycodone HCl (Roxycodone Tab*) 5 mg PO Q4HR PRN Reason: PAIN Pharmacy Profile Note (Coumadin Daily Reminder*) 1 note FOLLOW UP 1700 [facility] Potassium Chloride (Klor Con Er Tab*) 20 meq PO DAILY [facility] Senna (Senokot Tab*) 1 tab PO BID [facility] Vilazodone HCl (Viibryd (Nf)) 40 mg PO DAILY [facility] Vital Signs - 8 hr 08/26/17 08/26/17 08/26/17 07:31 08:00 10:05 Temperature 97.6 F Pulse Rate 74 Respiratory 16 18 18 Rate Blood Pressure 115/69 (mmHg) O2 Sat by Pulse 99 Oximetry 08/26/17 08/26/17 08/26/17 11:02 11:03 14:43 Temperature Pulse Rate Respiratory 18 18 18 Rate Blood Pressure (mmHg) O2 Sat by Pulse Oximetry 08/26/17 08/26/17 14:44 14:50 Temperature Pulse Rate Respiratory 18 18 Rate Blood Pressure (mmHg) O2 Sat by Pulse Oximetry Oxygen Devices in Use Now: None Appearance: NAD, laying in bed Ears/Nose/Mouth/Throat: Mucous Membranes Moist Respiratory: Symmetrical Chest Expansion and Respiratory Effort, Clear to Auscultation Cardiovascular: NL Sounds; No Murmurs; No JVD, RRR Abdominal: NL Sounds; No Tenderness; No Distention Extremities: - - Right ankle Skin: No Rash or Ulcers, - - Echymosis to right lateral ankle Neurological: Alert and Oriented x 3, NL Muscle Strength and Tone Lines/Tubes/Other Access: Clean, Dry and Intact Peripheral IV - site benign Nutrition: Taking PO's Result Diagrams: 08/26/17 06:20 08/25/17 05:59 Additional Lab and Data: Assess/Plan/Problems-Billing Assessment: 47 year old with a 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 Admitted with worsening weakness of the Lower extremities, falls, patchy sensory loss and some difficulty swallowing this am. My suspicion for an acute MS flair is low and her symptoms are more likely associated with the progressive decline seen with secondary progressive MS. For the time being, I would continue her Tecfidera although in the setting of likely secondary progressive and questionably low lymphocyte count (improved today--could have been dilutional) this is something that we can consider as an outpatient. No enhancing lesions on MRI --Hold on additional steroids at this point. She has recently completed a prolonged course of steroids and there are no enhancing lesions on MRI, steroids are likely to cause more harm than good. --I will order swallowing evaluation given reported dysphagia --PT/OT in house and need to consider options for longer term therapy. --Discharge planning: I am concerned that she may be unsafe at home at this point --Ortho following for her right ankle fracture. Will need PT for this as well. Using walking boot - Patient Problems (1) Weakness Code(s): R53.1 - WEAKNESS SNOMED Code(s): 07499870 Comment: - Etiology not clear - suspect progression of MS - Doubt this is secondary to infection (UA negative, no leukocytosis or fever, chest xray negative) - Neuro consult, input appreciated - MRI of the brain and spine, no new lesions - Continue PT (2) Tachycardia Code(s): R00.0 - TACHYCARDIA, UNSPECIFIED SNOMED Code(s): 7499978 Comment: - Improving - Unclear etiology (no signs of infection, CTA chest negative for PE) - ? aspect of anxiety (3) Closed right ankle fracture Code(s): S82.891A - OTH FRACTURE OF RIGHT LOWER LEG, INIT FOR CLOS FX SNOMED Code(s): 32587198 Comment: - Right avulsion fracture of the right lateral malleolus - Ortho consult, input appreciated - Continue walking boot and Pain management (4) Multiple sclerosis Code(s): G35 - MULTIPLE SCLEROSIS SNOMED Code(s): 06949797 Comment: - Followed by Neurology outpatient on Tecfidera - Neurology consult, input appreciated - Hold on further steroids for now (5) History of DVT (deep vein thrombosis) Code(s): Z86.718 - PERSONAL HISTORY OF OTHER VENOUS THROMBOSIS AND EMBOLISM SNOMED Code(s): 479295911 Comment: - INR subtherapeutic today (missed dose of warfarin yesterday) - Continue Warfarin (6) Urinary incontinence Code(s): R32 - UNSPECIFIED URINARY INCONTINENCE SNOMED Code(s): 901906384 Comment: - Continue oxybutynin (7) Hypothyroidism Code(s): E03.9 - HYPOTHYROIDISM, UNSPECIFIED SNOMED Code(s): 29707129 Comment: - TSH 0.45 - Continue levothyroxine (8) Asthma Code(s): J45.909 - UNSPECIFIED ASTHMA, UNCOMPLICATED SNOMED Code(s): 752949179 Comment: - No acute exacerbation (9) YASMINE (obstructive sleep apnea) Code(s): G47.33 - OBSTRUCTIVE SLEEP APNEA (ADULT) (PEDIATRIC) SNOMED Code(s): 40641584 Comment: - Continue CPAP (10) DVT prophylaxis Code(s): LLY3216 - SNOMED Code(s): 503094961 Comment: - Warfarin (11) DNR (do not resuscitate) Status and Disposition: Inpatient. Discharge to home when medically stable, may need to have assisted vs SNF at discharge.
[2017-08-26] MEDS ORDERED: Warfarin TAB(*) 3 MG PO ONE (17:25)
[2017-08-27] MEDS: oxyCODONE TAB* 5 MG TAB PO PRN ×5 (03:17→20:43)
[2017-08-27] MEDS: Morphine INJ* 4 MG/ML 1 ML SYRINGE (NEW SYRINGE VERSION) IV PRN ×5 (03:18→20:44)
[2017-08-27] MEDS: Levothyroxine TAB* 75 MCG TAB PO SCH (05:28)
[2017-08-27 06:08] LABS: INR 1.55 (0.77-1.02)
[2017-08-27 06:24] LABS: EGFR Non-African American 97.3 (>60)
--- NOTE | 2017-08-27 07:51 | PN ---
Subjective Date of Service: 08/27/17 Interval History: Overnight no new issues. Feels like she cannot empty her bladder at times, post void residual 117cc. Continued back pain, at times 9/10. Requests pain meds for back pain and right ankle pain. She is able to get up and ambulate with belt and 2 assist. Continued weakness, generalized pain. Denies any new symptoms. MRIs reviewed yesterday: No new enhancing lesions Family History: Unchanged from Admission Social History: Unchanged from Admission Past Medical History: Unchanged from Admission Objective Active Medications: Acetaminophen (Tylenol Tab*) 650 mg PO Q4H PRN PRN Reason: PAIN Last Admin: 08/25/17 02:18 Dose: 650 mg Amantadine HCl (Symmetrel Cap*) 100 mg PO BID [facility] Last Admin: 08/26/17 20:29 Dose: 100 mg Baclofen (Lioresal Tab*) 15 mg PO BID [facility] Last Admin: 08/26/17 20:30 Dose: 15 mg Dimethyl Fumarate (Tecfidera(Nf)) 240 mg PO BID [facility] Last Admin: 08/26/17 20:30 Dose: 240 mg Levothyroxine Sodium (Synthroid Tab*) 75 mcg PO 0600 [facility] Last Admin: 08/27/17 05:28 Dose: 75 mcg Methylphenidate HCl (Concerta Er Tab*) 36 mg PO DAILY [facility] Last Admin: 08/26/17 08:55 Dose: 36 mg Morphine Sulfate (Morphine Inj (Syringe)*) 4 mg IV Q4H PRN PRN Reason: PAIN Last Admin: 08/27/17 03:18 Dose: 4 mg Omeprazole (Prilosec Cap*) 20 mg PO DAILY [facility] Last Admin: 08/26/17 08:53 Dose: 20 mg Oxybutynin Chloride (Ditropan Tab*) 5 mg PO QAM [facility] Last Admin: 08/26/17 08:56 Dose: 5 mg Oxybutynin Chloride (Ditropan Tab*) 10 mg PO QPM [facility] Last Admin: 08/26/17 18:36 Dose: 10 mg Oxycodone HCl (Roxycodone Tab*) 5 mg PO Q4HR PRN PRN Reason: PAIN Last Admin: 08/27/17 03:17 Dose: 5 mg Pharmacy Profile Note (Coumadin Daily Reminder*) 1 note FOLLOW UP 1700 [facility] Last Admin: 08/26/17 18:42 Dose: 1 note Pharmacy Profile Note (Coumadin Per Pharmacy*) 1 note FOLLOW UP .PER PHARMACY PROTOC [facility] PRN Reason: Protocol Potassium Chloride (Klor Con Er Tab*) 20 meq PO DAILY [facility] Last Admin: 08/26/17 08:55 Dose: 20 meq Senna (Senokot Tab*) 1 tab PO BID [facility] Last Admin: 08/26/17 20:30 Dose: 1 tab Vilazodone HCl (Viibryd (Nf)) 40 mg PO DAILY [facility] Last Admin: 08/26/17 08:54 Dose: 40 mg Vital Signs 08/26/17 08/26/17 08/26/17 08:00 10:05 11:02 Temperature Pulse Rate Respiratory 18 18 18 Rate Blood Pressure (mmHg) O2 Sat by Pulse Oximetry 08/26/17 08/26/17 08/26/17 11:03 14:43 14:44 Temperature Pulse Rate Respiratory 18 18 18 Rate Blood Pressure (mmHg) O2 Sat by Pulse Oximetry 08/26/17 08/26/17 08/26/17 14:50 16:13 18:59 Temperature 98.0 F Pulse Rate 105 Respiratory 18 16 18 Rate Blood Pressure 138/76 (mmHg) O2 Sat by Pulse 95 Oximetry 08/26/17 08/26/17 08/26/17 20:00 20:28 20:29 Temperature Pulse Rate Respiratory 21 18 18 Rate Blood Pressure (mmHg) O2 Sat by Pulse Oximetry 08/26/17 08/26/17 08/26/17 20:32 23:03 23:27 Temperature 98.4 F 98.4 F Pulse Rate 123 104 Respiratory 21 18 16 Rate Blood Pressure 134/71 147/69 (mmHg) O2 Sat by Pulse 95 95 Oximetry 08/27/17 08/27/17 08/27/17 03:08 03:17 03:18 Temperature 98.3 F Pulse Rate 102 Respiratory 16 17 17 Rate Blood Pressure 136/61 (mmHg) O2 Sat by Pulse 95 Oximetry 08/27/17 08/27/17 08/27/17 04:41 05:31 07:31 Temperature Pulse Rate 91 Respiratory 18 18 Rate Blood Pressure 107/77 (mmHg) O2 Sat by Pulse 97 Oximetry Oxygen Devices in Use Now: None Neurology Exam: General: HEENT: Normocephelic/atraumatic, sclera anicteric, mucous membranes moist Neck: Supple Chest: Clear to auscultation bilaterally Cardiovascular: Regular rate and rhythm without murmurs, rubs, gallops Abdomen: Soft, non-distended Extremities: No clubbing, cyanosis, or edema Neurological Findings: Awake, Alert, Oriented x3 Speech: fluent with mild dysarthria Cranial Nerve: PEERL, EOM intact, No clear cut hemianopsia but diminished vision right eye, bilateral lateral gaze nystagmus, ?CYNDY bilaterally, face symmetric bilaterally, hearing intact to finger rub bilaterally, palate elevates symmetrically, tongue midline Motor: 4/5 UEs proximally and distally with some giveway. LEs: minimal antigravity proximally with minimal resistance distally, giveway secondary to back pain. 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 Admitted with worsening weakness of the Lower extremities, falls, patchy sensory loss and some difficulty swallowing this am. --I suspect that she may have transitioned to secondary progressive MS. --MRIs show no new enhancing lesions so there is no pressing need for additional steroids --Would continue Tecfidera for now but needs follow up soon with Neurology to discuss changing medications --She has requested to see Dr. Mcwilliams as an outpatient --Concern for a more generalized myopathy is low--would most likely be steroid related as she has been on them for quite some time. Now off steroids. EMG/ NCS can be considered as an outpatient if no improvement with PT but low yield at this point. --Swallowing study: appreciate speech's help. Mild dysphagia noted, diet changed and strategies discussed with patient --Continue boot for right ankle fracture per Ortho recs. Will need continued PT /OT --I had a discussion regarding my concerns for living alone. She is adamant that she will not go to [facility] for further rehab. Primary has order psych to see for competence. I am not clear how she will be able to live alone without considerable assistance. She states that she has aids that come every day. --On Coumadin for history of DVT/PE. Defer to Primary regarding management. Without proper assistance, she is a fall risk and this should factor into her ability to live alone. Continued falls would be a contraindication for Coumadin. --D/C Planning
[2017-08-27] MEDS: Baclofen TAB* 10 MG PO SCH ×2 (09:01→20:43)
[2017-08-27] MEDS: Acetaminophen TAB* 325 MG PO PRN (10:10)
[2017-08-27] MEDS: Oxybutynin TAB* 5 MG PO SCH ×2 (10:43→18:22)
[2017-08-27] MEDS: Methylphenidate ER TAB* 18 MG PO SCH (10:43)
[2017-08-27] MEDS: DIMETHYL FUMARATE 240 MG PO SCH ×2 (10:43→20:44)
[2017-08-27] MEDS: Omeprazole CAP* 20 MG PO SCH (10:43)
[2017-08-27] MEDS: VILAZODONE 40 MG PO SCH (10:43)
[2017-08-27] MEDS: Amantadine CAP* 100 MG PO SCH ×2 (10:44→20:42)
--- NOTE | 2017-08-27 10:50 | PN ---
Progress Note - Progress Note Date of Service: 08/27/17 SOAP: Subjective: []Patient seen at bedside. Right ankle is painful with movement. She has ambulate to the bedside commode but has walked no further, does wear walking boot for ambulation. States her ambulation is limited by back spasm more than by right ankle pain. Denies CP, SOB. Refuses to go to [facility] rehab as offered to her. Feels her best option to to go home with aides who come up to 7 hours per day at present. Objective: [] Vital Signs Temp 98.3 F 08/27/17 03:08 Pulse 91 08/27/17 07:31 Resp 20 08/27/17 08:00 BP 107/77 08/27/17 07:31 Pulse Ox 97 08/27/17 07:31 General: Laying comfortable in bed, calm and cooperative RLE: Patient is icing lateral and medial ankle. Skin is intact. Lateral ankle with ecchymosis. Tenderness of lateral distal ankle and pain with any ROM of ankle. 1+ DP pulse. Sensation is intact to light touch distally. Calf supple and nontender without erythema or edema. LLE: calf supple and nontender without erythema, edema or palpable cords Assessment: []Avulsion fracture of the right lateral malleolus Plan: []- Discussed with patient my concern over her going home to care for herself as she is not mobilizing well, completing ADLs will be a challenge without around the clock assistance. - Continue walking boot, WBAT - F/U in clinic next week with Dr. Rangel
[2017-08-27] MEDS: Senna TAB PO SCH ×2 (11:11→20:43)
[2017-08-27] MEDS: Potassium Chlor TAB* 20 MEQ TAB.ER PO SCH (11:11)
--- NOTE | 2017-08-27 11:40 | PN ---
Subjective Date of Service: 08/27/17 Interval History: Patient seen and examined at bedside. Denies fever, chill, shortness of breath, chest discomfort, N/V/D. Pt reports lower back muscle spasms, at first she reports that she has been having for a few months and then states a few days. She reports that the Baclofen that she takes doesn't help. We discussed using PT to help strengthen her abdominal and back muscles. She also reports feeling like she always has to urinate. Negative UA on admission. Bladder scan shows no significant post-void residual (~ 110 ml). Family History: Unchanged from Admission Social History: Unchanged from Admission Past Medical History: Unchanged from Admission Objective Active Medications: Acetaminophen (Tylenol Tab*) 650 mg PO Q4H PRN Reason: PAIN Amantadine HCl (Symmetrel Cap*) 100 mg PO BID BRENNAN Baclofen (Lioresal Tab*) 15 mg PO BID BRENNAN Dimethyl Fumarate (Tecfidera(Nf)) 240 mg PO BID BRENNAN Levothyroxine Sodium (Synthroid Tab*) 75 mcg PO 0600 BRENNAN Methylphenidate HCl (Concerta Er Tab*) 36 mg PO DAILY BRENNAN Morphine Sulfate (Morphine Inj (Syringe)*) 4 mg IV Q4H PRN Reason: PAIN Omeprazole (Prilosec Cap*) 20 mg PO DAILY BRENNAN Oxybutynin Chloride (Ditropan Tab*) 5 mg PO QAM BRENNAN Oxybutynin Chloride (Ditropan Tab*) 10 mg PO QPM BRENNAN Oxycodone HCl (Roxycodone Tab*) 5 mg PO Q4HR PRN Reason: PAIN Pharmacy Profile Note (Coumadin Per Pharmacy*) 1 note FOLLOW UP .PER PHARMACY PROTOC BRENNAN Potassium Chloride (Klor Con Er Tab*) 20 meq PO DAILY BRENNAN Senna (Senokot Tab*) 1 tab PO BID BRENNAN Vilazodone HCl (Viibryd (Nf)) 40 mg PO DAILY BRENNAN Warfarin Sodium (Coumadin Tab(*)) 3 mg PO ONCE ONE Stop: 08/27/17 17:01 Vital Signs - 8 hr 08/27/17 08/27/17 08/27/17 04:41 05:31 07:31 Pulse Rate 91 Respiratory 18 18 Rate Blood Pressure 107/77 (mmHg) O2 Sat by Pulse 97 Oximetry 08/27/17 08/27/17 08/27/17 07:52 08:00 11:15 Pulse Rate Respiratory 18 20 18 Rate Blood Pressure (mmHg) O2 Sat by Pulse Oximetry Oxygen Devices in Use Now: None Appearance: NAD, sitting up in a chair Ears/Nose/Mouth/Throat: Mucous Membranes Moist Respiratory: Symmetrical Chest Expansion and Respiratory Effort, Clear to Auscultation Cardiovascular: NL Sounds; No Murmurs; No JVD, RRR Abdominal: NL Sounds; No Tenderness; No Distention Extremities: - - Mild edema to right LE Skin: - - Ecchymosis to right ankle Neurological: Alert and Oriented x 3 Lines/Tubes/Other Access: Clean, Dry and Intact Peripheral IV - site benign Nutrition: Taking PO's Result Diagrams: 08/26/17 06:20 08/27/17 05:49 Additional Lab and Data: Assess/Plan/Problems-Billing Assessment: 47 year old with a 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 Admitted with worsening weakness of the Lower extremities, falls, patchy sensory loss and some difficulty swallowing this am. - Patient Problems (1) Weakness Code(s): R53.1 - WEAKNESS SNOMED Code(s): 93700861 Comment: - Neurology suspects that she may have transitioned to secondary progressive MS - Doubt this is secondary to infection (UA negative, no leukocytosis or fever, chest xray negative) - MRIs show no new enhancing lesions so there is no pressing need for additional steroids - Continue Tecfidera for now but needs follow up soon with Neurology outpatient to discuss changing medications, she has requested to see Dr. Mcwilliams as an outpatient - Continue PT (2) Tachycardia Code(s): R00.0 - TACHYCARDIA, UNSPECIFIED SNOMED Code(s): 3641615 Comment: - Improving - Unclear etiology (no signs of infection, CTA chest negative for PE) - ? aspect of anxiety (3) Closed right ankle fracture Code(s): S82.891A - OTH FRACTURE OF RIGHT LOWER LEG, INIT FOR CLOS FX SNOMED Code(s): 54070769 Comment: - Right avulsion fracture of the right lateral malleolus - Ortho consult, input appreciated - Continue walking boot and Pain management (4) Dysphagia Code(s): R13.10 - DYSPHAGIA, UNSPECIFIED SNOMED Code(s): 13780733 Comment: - Swallowing study: appreciate speech's help. Mild dysphagia noted, diet changed and strategies discussed with patient (5) Multiple sclerosis Code(s): G35 - MULTIPLE SCLEROSIS SNOMED Code(s): 99615959 Comment: - Followed by Neurology outpatient on Tecfidera - Neurology consult, input appreciated - Hold on further steroids, see above (6) History of DVT (deep vein thrombosis) Code(s): Z86.718 - PERSONAL HISTORY OF OTHER VENOUS THROMBOSIS AND EMBOLISM SNOMED Code(s): 368351668 Comment: - INR subtherapeutic today - Continued falls would be a contraindication for Coumadin - Continue Warfarin (7) Urinary incontinence Code(s): R32 - UNSPECIFIED URINARY INCONTINENCE SNOMED Code(s): 332267733 Comment: - Continue oxybutynin (8) Hypothyroidism Code(s): E03.9 - HYPOTHYROIDISM, UNSPECIFIED SNOMED Code(s): 31184936 Comment: - TSH 0.45 - Continue levothyroxine (9) Asthma Code(s): J45.909 - UNSPECIFIED ASTHMA, UNCOMPLICATED SNOMED Code(s): 989773104 Comment: - No acute exacerbation (10) YASMINE (obstructive sleep apnea) Code(s): G47.33 - OBSTRUCTIVE SLEEP APNEA (ADULT) (PEDIATRIC) SNOMED Code(s): 21333876 Comment: - Continue CPAP (11) DVT prophylaxis Code(s): LOH4565 - SNOMED Code(s): 042277783 Comment: - Warfarin (12) DNR (do not resuscitate) Status and Disposition: Inpatient. Stable for discharge to [facility] in the AM. Attending: Fabian Whyte
--- NOTE | 2017-08-27 11:58 | CONSULT ---
Consult Consult: Consultation for Medical Decision Making Capacity S: Psychiatry is asked to evaluate the capacity of this unfortunate 47 y.o. single, white female with a history of progressive MS, currently admitted to the hospitalist service due to a fall in her home. I spoke with hospitalist attending, Lula Lyles, who indicates that the patient lives alone in an apartment and was recently discharged from [facility] to her home. She has access to intensive home health support services, however, on the one day that they did not show up, a Thursday, she fell, injuring herself and requiring hospitalization. Lula indicates that Karla requires 2-person assist for lifting and to address ADLs and feels that the patient would not be safe to return to her apartment until her outpatient services are enhanced to 7 days/week. There will unfortunately be a one to two week delay in when these services will be available and the primary team feels placement in a [facility] on a temporary basis is indicated. On exam the patient is calm and cooperative. She states that she would be willing to try any [facility] in the community, just not [facility], as she felt she got poor treatment there recently. "They only did 20 minutes of physical therapy with me a day. I could do that at home." She expresses her understanding that [facility] is the only [facility] that will take her because of the high cost of her MS medications. Ms. Cisneros is aware of her diagnosis. She is well oriented to time, person, place and situation. She is aware that [facility] is the treatment being recommended to her. When asked about the risks of refusing said treatment, she responds "My legs are weak, I could fall." She is hopeful that her home health service provider can accommodate her increased needs. O: the patient is a pleasant white female, appearing slightly older than her stated age; she is calm and cooperative, euthymic with full affect; denies SI or HI; scores 30/30 on MMSE A/P: Capacity: the patient is cognitively intact and understands her diagnosis, recommended treatment and risks of refusing indicated treatment. Psychiatry deems that, on the subject of [facility] placement, she has capacity at this time. Thank you for allowing us to participate in her care.
[2017-08-27] MEDS ORDERED: Warfarin TAB(*) 3 MG PO ONE (17:00)
[2017-08-28] MEDS: Morphine INJ* 4 MG/ML 1 ML SYRINGE (NEW SYRINGE VERSION) IV PRN ×3 (01:05→12:14)
[2017-08-28] MEDS: oxyCODONE TAB* 5 MG TAB PO PRN (06:07)
[2017-08-28] MEDS: Levothyroxine TAB* 75 MCG TAB PO SCH (06:07)
[2017-08-28 07:08] LABS: INR 1.57 (0.77-1.02)
[2017-08-28] MEDS: Oxybutynin TAB* 5 MG PO SCH (08:08)
[2017-08-28] MEDS: Amantadine CAP* 100 MG PO SCH (08:08)
[2017-08-28] MEDS: Omeprazole CAP* 20 MG PO SCH (08:08)
[2017-08-28] MEDS: Potassium Chlor TAB* 20 MEQ TAB.ER PO SCH (08:08)
[2017-08-28] MEDS: Senna TAB PO SCH (08:08)
[2017-08-28] MEDS: VILAZODONE 40 MG PO SCH (08:09)
[2017-08-28] MEDS: Methylphenidate ER TAB* 18 MG PO SCH (08:09)
[2017-08-28] MEDS: Baclofen TAB* 10 MG PO SCH (08:09)
[2017-08-28] MEDS: DIMETHYL FUMARATE 240 MG PO SCH (08:10)
--- NOTE | 2017-08-28 08:51 | PN ---
Progress Note - Progress Note Date of Service: 08/28/17 SOAP: Subjective: 47 y/o female s/p R lat mal avulsion fracture sustained 3/4 after fall from chair. VSS, mild tachy, afebrile overnight. Patient states complaints of back pain, pain with weight bearing when pivoting to toilet. Minimal movement. Concerned about rehabilitation placement, however has agreed to CR. Objective: General- Well appearing, NAD AO, resting in bed MSK- RIGHT ankle- Boot in place, + movement of toes, cap refill <2 seconds, SITLT Vital Signs Temp 97.9 F 08/28/17 07:58 Pulse 106 08/28/17 07:58 Resp 16 08/28/17 07:58 BP 129/67 08/28/17 07:58 Pulse Ox 97 08/28/17 07:58 Intake & Output 08/27/17 08/28/17 08/28/17 18:59 06:59 18:59 Intake Total 1040 0 Output Total 700 525 Balance 340 -525 Intake: Oral 1040 0 Output: Urine 700 525 Other: Estimated Void Large Large # Bowel Movements 0 0 # Voids 1 1 Assessment: Stable 47 y/o female s/p R lat mal avulsion fracture, non-op Plan: - Walking boot, WBAT - Hospitalists discussing [facility] vs returning home - Follow up with Dr. Rangel in ~ 1 week Active Medications Generic Name Dose Route Start Last Admin Trade Name Freq PRN Reason Stop Dose Admin Acetaminophen 650 mg 08/23/17 21:35 08/27/17 10:10 Tylenol Tab* PO 650 mg Q4H PRN Administration PAIN Amantadine HCl 100 mg 08/23/17 22:00 08/28/17 08:08 Symmetrel Cap* PO 100 mg BID BRENNAN Administration Baclofen 15 mg 08/23/17 22:00 08/28/17 08:09 Lioresal Tab* PO 15 mg BID BRENNAN Administration Dimethyl Fumarate 240 mg 08/24/17 01:00 08/28/17 08:10 Tecfidera(Nf) PO 240 mg BID BRENNAN Administration Levothyroxine Sodium 75 mcg 08/24/17 06:00 08/28/17 06:07 Synthroid Tab* PO 75 mcg 0600 BRENNAN Administration Methylphenidate HCl 36 mg 08/24/17 09:00 08/28/17 08:09 Concerta Er Tab* PO 36 mg DAILY BRENNAN Administration Morphine Sulfate 4 mg 08/23/17 21:35 08/28/17 06:11 Morphine Inj (Syringe)* IV 4 mg Q4H PRN Administration PAIN Omeprazole 20 mg 08/24/17 09:00 08/28/17 08:08 Prilosec Cap* PO 20 mg DAILY BRENNAN Administration Oxybutynin Chloride 5 mg 08/24/17 09:00 08/28/17 08:08 Ditropan Tab* PO 5 mg QAM BRENNAN Administration Oxybutynin Chloride 10 mg 08/23/17 22:00 08/27/17 18:22 Ditropan Tab* PO 10 mg QPM BRENNAN Administration Oxycodone HCl 5 mg 08/23/17 21:37 08/28/17 06:07 Roxycodone Tab* PO 5 mg Q4HR PRN Administration PAIN Pharmacy Profile Note 1 note 08/26/17 18:00 Coumadin Per Pharmacy* FOLLOW UP .PER PHARMACY PROTOC BRENNAN Protocol Potassium Chloride 20 meq 08/24/17 09:00 08/28/17 08:08 Klor Con Er Tab* PO 20 meq DAILY BRENNAN Administration Senna 1 tab 08/24/17 21:00 08/28/17 08:08 Senokot Tab* PO 1 tab BID BRENNAN Administration Vilazodone HCl 40 mg 08/25/17 09:00 08/28/17 08:09 Viibryd (Nf) PO 40 mg DAILY BRENNAN Administration <Rocio Avelar - Last Filed: 08/28/17 09:50> - Progress Note SOAP: Subjective: Patient is scheduled for dispo to rehab. R ankle feels better but still hurts. Walks at baseline with a walker. Objective: RLE: - swelling, ecchymosis lateral ankle - TTP lateral malleolus, lateral ankle ligaments - NVID Assessment: R ankle lateral malleolus fracture, Young A Plan: - WBAT in tall walking boot - Doesn't need to wear boot in bed. May wean out of boot when ankle less painful. - f/u with me in clinic in 1-2 weeks at which point we will start physical therapy and perhaps wean out of boot into an ankle brace <Maico Ragnel - Last Filed: 08/29/17 18:02>
[2017-08-28] MEDS ORDERED: Magnesium Hydroxide LIQ* 30 ML UDC PO PRN (09:51)
[2017-08-28] MEDS ORDERED: Polyethylene Glycol 3350* 17 GM PACKET PO PRN (09:52)
--- NOTE | 2017-08-28 11:16 | PN ---
Subjective Date of Service: 08/28/17 Interval History: Patient seen and examined at bedside. Denies fever, chills, shortness of breath , chest discomfort, N/V/D. Pt reports continued low back pain. She also has not moved her bowels in several days and isn't concerned by this. She has declined bowel medications. We discussed that there was nothing more to do for her back here and that she needed togo to rehab today, where she can have PT and they will help with her back pain. Family History: Unchanged from Admission Social History: Unchanged from Admission Past Medical History: Unchanged from Admission Objective Active Medications: Acetaminophen (Tylenol Tab*) 650 mg PO Q4H PRN Reason: PAIN Amantadine HCl (Symmetrel Cap*) 100 mg PO BID BRENNAN Baclofen (Lioresal Tab*) 15 mg PO BID BRENNAN Dimethyl Fumarate (Tecfidera(Nf)) 240 mg PO BID BRENNAN Levothyroxine Sodium (Synthroid Tab*) 75 mcg PO 0600 BRENNAN Magnesium Hydroxide (Milk Of Magnesia Liq*) 30 ml PO Q6H PRN Reason: CONSTIPATION Methylphenidate HCl (Concerta Er Tab*) 36 mg PO DAILY BRENNAN Morphine Sulfate (Morphine Inj (Syringe)*) 4 mg IV Q4H PRN Reason: PAIN Omeprazole (Prilosec Cap*) 20 mg PO DAILY BRENNAN Oxybutynin Chloride (Ditropan Tab*) 5 mg PO QAM BRENNAN Oxybutynin Chloride (Ditropan Tab*) 10 mg PO QPM BRENNAN Oxycodone HCl (Roxycodone Tab*) 5 mg PO Q4HR PRN Reason: PAIN Pharmacy Profile Note (Coumadin Per Pharmacy*) 1 note FOLLOW UP .PER PHARMACY PROTOC BRENNAN Polyethylene Glycol/Electrolytes (Miralax*) 17 gm PO DAILY PRN Reason: CONSTIPATION Potassium Chloride (Klor Con Er Tab*) 20 meq PO DAILY BRENNAN Senna (Senokot Tab*) 1 tab PO BID BRENNAN Vilazodone HCl (Viibryd (Nf)) 40 mg PO DAILY BRENNAN Warfarin Sodium (Coumadin Tab(*)) 7.5 mg PO 1700 ONE Stop: 08/28/17 17:01 Vital Signs - 8 hr 08/28/17 08/28/17 08/28/17 06:07 06:11 07:28 Temperature Pulse Rate Respiratory 18 18 12 Rate Blood Pressure (mmHg) O2 Sat by Pulse Oximetry 08/28/17 08/28/17 08/28/17 07:53 07:58 08:00 Temperature 97.9 F Pulse Rate 106 Respiratory 12 16 16 Rate Blood Pressure 129/67 (mmHg) O2 Sat by Pulse 97 Oximetry Oxygen Devices in Use Now: None Appearance: NAD, laying in bed Ears/Nose/Mouth/Throat: Mucous Membranes Moist Respiratory: Symmetrical Chest Expansion and Respiratory Effort, Clear to Auscultation Cardiovascular: NL Sounds; No Murmurs; No JVD, RRR - . 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 Admitted with worsening weakness of the Lower extremities, falls, patchy sensory loss and some difficulty swallowing this am. - Patient Problems (1) Weakness Code(s): R53.1 - WEAKNESS SNOMED Code(s): 40815908 Comment: - Neurology suspects that she may have transitioned to secondary progressive MS - Doubt this is secondary to infection (UA negative, no leukocytosis or fever, chest xray negative) - MRIs show no new enhancing lesions so there is no pressing need for additional steroids - Continue Tecfidera for now but needs follow up soon with Neurology outpatient to discuss changing medications, she has requested to see Dr. Mcwilliams as an outpatient - Continue PT (2) Tachycardia Code(s): R00.0 - TACHYCARDIA, UNSPECIFIED SNOMED Code(s): 8806421 Comment: - Improving - Unclear etiology (no signs of infection, CTA chest negative for PE) - ? aspect of anxiety (3) Closed right ankle fracture Code(s): S82.891A - OTH FRACTURE OF RIGHT LOWER LEG, INIT FOR CLOS FX SNOMED Code(s): 41803890 Comment: - Right avulsion fracture of the right lateral malleolus - Ortho consult, input appreciated - Continue walking boot and Pain management - Follow-up 1 week (4) Dysphagia Code(s): R13.10 - DYSPHAGIA, UNSPECIFIED SNOMED Code(s): 92159021 Comment: - Swallowing study: appreciate speech's help. Mild dysphagia noted, diet changed and strategies discussed with patient (5) Multiple sclerosis Code(s): G35 - MULTIPLE SCLEROSIS SNOMED Code(s): 39654371 Comment: - Followed by Neurology outpatient on Tecfidera - Neurology consult, input appreciated - Hold on further steroids, see above (6) History of DVT (deep vein thrombosis) Code(s): Z86.718 - PERSONAL HISTORY OF OTHER VENOUS THROMBOSIS AND EMBOLISM SNOMED Code(s): 592108572 Comment: - INR subtherapeutic today - Continued falls would be a contraindication for Coumadin - Continue Warfarin (7) Urinary incontinence Code(s): R32 - UNSPECIFIED URINARY INCONTINENCE SNOMED Code(s): 682877603 Comment: - Continue oxybutynin (8) Hypothyroidism Code(s): E03.9 - HYPOTHYROIDISM, UNSPECIFIED SNOMED Code(s): 51625175 Comment: - TSH 0.45 - Continue levothyroxine (9) Asthma Code(s): J45.909 - UNSPECIFIED ASTHMA, UNCOMPLICATED SNOMED Code(s): 993381640 Comment: - No acute exacerbation (10) YASMINE (obstructive sleep apnea) Code(s): G47.33 - OBSTRUCTIVE SLEEP APNEA (ADULT) (PEDIATRIC) SNOMED Code(s): 68065216 Comment: - Continue CPAP (11) DVT prophylaxis Code(s): [id number] - SNOMED Code(s): 836084302 Comment: - Warfarin (12) DNR (do not resuscitate) Status and Disposition: Inpatient. Stable for discharge to [facility].
[2017-08-28 11:47] VITALS: BP 122/69
--- NOTE | 2017-08-28 14:00 | DS ---
CC: Dr. Chiki Chandler; [facility]* DATE OF ADMISSION: 08/23/2017. DATE OF DISCHARGE: 08/28/2017. ATTENDING PHYSICIAN: Dr. Fabian Whyte* (dictated by Andie Escobedo NP). PRIMARY CARE PHYSICIAN: Dr. Chiki Chandler. PRIMARY DIAGNOSES: 1. Secondary progression of MS. 2. Weakness. 3. Tachycardia, improved with unclear etiology. 4. Right avulsion fracture of the right lateral malleolus. 5. Dysphagia. 6. Subtherapeutic INR in the setting of a history of PE and DVT. SECONDARY DIAGNOSES: 1. Multiple sclerosis. 2. Urinary incontinence. 3. Hypothyroidism. 4. Asthma. 5. Obstructive sleep apnea. CONSULTATIONS WHILE IN THE HOSPITAL: Dr. Maico Rangel with Orthopedic Surgery; Dr. Sreekanth Quinonez and Dr. Tim Lara with Neurology; Dr. Dallas Rogers with Psychiatry. STUDIES WHILE IN THE HOSPITAL: 1. Chest x-ray, 08/23/2017: Radiologist's impression: No active disease. 2. Brain CT, 08/23/2017: Radiologist's impression: Cortical atrophy with chronic microvascular ischemic changes. No acute findings. 3. Cervical spine CT, 08/23/2017: Radiologist's impression: Moderate degenerative disease C5 TO C6. No acute findings. 4. Lumbar spine CT, 08/23/2017: Radiologist's impression: No acute CT findings or interval changes. Wide canal and foraminal patency. 5. Right ankle x-ray, 08/23/2017: Radiologist's impression: Tiny, age- indeterminate, avulsion fracture from the lateral malleolus with associated soft tissue swelling. 6. Pelvis x-ray, 08/23/2017: Radiologist's impression: Negative examination. 7. Right knee x-ray, 08/23/2017: Radiologist's impression: Negative examination. 8. Right lower extremity x-ray, 08/23/2017: Radiologist's impression: Negative exam. 9. Chest/thoracic CTA, 08/23/2017: Radiologist's impression: No CT evidence of acute pulmonary emboli. Interval lysis of previously identified pulmonary embolus. Lungs clear. 10. Brain MRI, 08/25/2017: Radiologist's impression: Again noted is multifocal elevated T2/FLAIR signal in the cerebral hemispheres, brainstem, and cerebellum consistent with demyelinating disease given the history of multiple sclerosis. There is no significant change compared to 03/30/2017. 11. Cervical spine MRI, 08/25/2017: Radiologist's impression: Again noted are multiple cord lesions most consistent with demyelinating plaque given the history of multiple sclerosis. There has been no significant change from 2015. Again noted is degenerative disk disease and osteoarthritis most pronounced at C5 to C6. 12. Brain MRI, 08/26/2017: Radiologist's impression: The white matter lesions noted on the 08/25/2017 examination do not enhance. 13. Cervical spine MRI, 08/26/2017: Radiologist's impression: The cervical cord lesions described on the 08/25/2017 examination do not enhance. 14. Thoracic spine MRI, 08/26/2017: Radiologist's impression: Again noted are several lesions of the upper thoracic cord and conus. These are most consistent with demyelinating plaque given the history of multiple sclerosis. There has been no significant change when compared to 2017. There is no associated abnormal enhancement to suggest active inflammation. DISCHARGE MEDICATIONS: New home medications: 1. Milk of Magnesia 30 ml oral every 6 hours as needed for constipation. 2. Oxycodone 10 mg oral every 4 hours as needed for uncontrolled pain. 3. MiraLax 17 gm oral daily as needed for constipation. 4. Warfarin 7.5 mg daily today on August 28, then resume 4 mg oral daily. 5. Oxybutynin 5 mg oral every morning. 6. Symmetrel 100 mg oral twice daily. 7. Viibryd 40 mg oral every day. 8. Baclofen 15 mg oral twice daily. 9. Omeprazole 20 mg oral daily. 10. Concerta ER 36 mg oral daily. 11. Levothyroxine 75 mcg oral daily. 12. Oxybutynin 10 mg oral every evening. 13. Acetaminophen 650 mg oral every 4 hours as needed for fever or pain. 14. Tecfidera 240 mg oral twice daily. 15. Senna 8.6 mg oral twice daily. 16. Potassium Chloride 20 mEq oral daily. 17. Again resume Warfarin 4 mg oral daily starting on August 29. 18. Oxycodone 5 mg oral every 4 hours as needed for mild to moderate pain. Discontinued home medication: Mupirocin ointment. HISTORY OF PRESENT ILLNESS/HOSPITAL COURSE: Ms. Cisneros is a 47-year-old female with a past medical history significant for multiple sclerosis, depression, asthma, migraines, urinary incontinence, optic neuritis, myositis of the hip, thigh and jaw, and recent DVT who presented to the emergency room with complaints of a fall and weakness. The patient stated she had been walking to the bathroom and back to her recliner when she began to feel weak. As she was turning around to sit down, her legs gave out and she feel. She reported feeling slightly lightheaded before going down. She ended up falling and getting stuck between the coffee table and recliner. She believes she was on the floor for less than an hour. She wears a Life Alert button and pushed this button right away. She was unable to stand with the assistance of EMS and came to the emergency room for further evaluation. While in the emergency room, the patient had labs showing a D-dimer greater than 1050, troponin of 0, CRP of 9.96. Urinalysis was negative. A negative chest x- ray. Brain CT and cervical spine CT's without significant findings. A lumbar CT without significant finding. A right ankle x-ray showing an avulsion fracture of the lateral malleolus. Pelvic x-ray that was negative. A right lower leg and knee x-ray showing no findings. A CT of her chest showing no evidence of a pulmonary embolus. She had an EKG showing a sinus tachycardia without acute ST-T wave changes. The Hospitalists were asked to evaluate the patient due to her weakness and subsequent fall. While in the hospital, the patient was seen in consultation by Orthopedic Surgery who recommended she wear a boot when walking and weightbear as tolerated for her right ankle avulsion fracture. She was seen in consultation by Neurology who felt that her weakness was due to secondary progression of her multiple sclerosis. She has no new lesions noted on MRI's and so she did not receive steroids. She was continued on her Tecfidera, but should follow-up with Neurology as an outpatient. She should also continue with physical therapy. She was also noted to have mild dysphagia during her stay and was seen in consultation by Speech Therapy. She was also noted to be tachycardic during her stay. There was no cause found to this. She was negative for PE. No signs of infection. Her INR was noted to be slightly subtherapeutic during her stay and her Warfarin had been being adjusted. She had an initial lactic acid on arrival that resolved. She was seen in consultation by Psychiatry to eval her competency to decline discharge planning as the patient was requesting to go home and it was felt to unsafe. She was deemed to have competency, but then decided that she would go temporarily for subacute rehab. Ms. Cisneros is stable for [facility]. Vital signs are as follows: Temperature 98.2, heart rate 112, respiratory rate 16, O2 sat 98 percent on room air, blood pressure 122/69. DISCHARGE PLAN: Ms. Cisneros will [facility]. Activity as tolerated. She can be weightbearing as tolerated to her right lower extremity with a boot on. In regards to her avulsion fracture of her right lateral malleolus, she should be seen in follow-up by Dr. Rangel in one week. Additionally, she should wear her boot when weightbearing. She can only ambulate with her boot on and she has been encouraged to keep her right leg elevated and use ice intermittently throughout the day. She should continue to be followed by Physical Therapy. The patient has been complaining of back pain. I recommend Physical Therapy work with her to strengthen her back and stomach muscles. I did increase her Oxycodone slightly. I would try to get her off of increased narcotics as soon as possible as this is not necessarily the best thing for her back pain. She has been encouraged to try non- pharmacological methods including heat and ice. Please continue to have Speech Therapy follow her for her mild dysphagia. She should have her regular diet, have extra sauces and gravies. I suspect this is secondary to her multiple sclerosis. Please recheck her INR on August 31 as she has been subtherapeutic. She should increase her Warfarin to 7.5 mg today and then decrease to 4 mg starting tomorrow, August 29. She has been resumed on her other usual home medications. Please call the Neurology office and set her up with an outpatient follow-up appointment. She should return to the emergency room for any chest pain or shortness of breath. She should be seen by a provider at [facility] per their protocol. This is a summarized report of a complex medical history and hospital stay. For further details, please see the entire medical record. Time for this discharge was approximately 50 minutes, greater than half of that was spent with the patient discussing discharge plans and instructions. CONDITION ON DISCHARGE: Stable. ANDIE ESCOBEDO, DONNY [id number]/[facility] #: [id number] SHIRA
[2017-08-28] MEDS ORDERED: Warfarin TAB(*) 3 MG PO ONE (17:00)
== END 2017-08-28 14:15 | DRG 60 ==
LOC: ED 14:51 → MED 21:35
PROVIDERS: ADMIT Hospitalist; ATTEND Internal Medicine
PROC: 5A09357 Assistance with Respiratory Ventilation, Less than 24 Consecutive Hours, Continuous Positive Airway Pressure (ICD-10-PCS; principal; 2017-08-24)
DX: G35 Multiple sclerosis (principal); E83.42 Hypomagnesemia; R13.10 Dysphagia, unspecified; J45.909 Unspecified asthma, uncomplicated; F32.9 Major depressive disorder, single episode, unspecified; W18.39XA Other fall on same level, initial encounter; G43.909 Migraine, unspecified, not intractable, without status migrainosus; E66.9 Obesity, unspecified; R32 Unspecified urinary incontinence; Z66 Do not resuscitate; S82.61XA Displaced fracture of lateral malleolus of right fibula, initial encounter for closed fracture; E03.9 Hypothyroidism, unspecified; R53.1 Weakness; K21.9 Gastro-esophageal reflux disease without esophagitis; M17.0 Bilateral primary osteoarthritis of knee; M19.041 Primary osteoarthritis, right hand; F41.9 Anxiety disorder, unspecified; G47.33 Obstructive sleep apnea (adult) (pediatric); R00.0 Tachycardia, unspecified; R79.1 Abnormal coagulation profile; M50.322 Other cervical disc degeneration at C5-C6 level; Z86.718 Personal history of other venous thrombosis and embolism; Y92.003 Bedroom of unspecified non-institutional (private) residence as the place of occurrence of the external cause; Z88.0 Allergy status to penicillin; Z88.8 Allergy status to other drugs, medicaments and biological substances; Z88.2 Allergy status to sulfonamides; Z88.5 Allergy status to narcotic agent; Z91.030 Bee allergy status; Z91.018 Allergy to other foods; Z82.49 Family history of ischemic heart disease and other diseases of the circulatory system; Z83.3 Family history of diabetes mellitus; Z83.49 Family history of other endocrine, nutritional and metabolic diseases; Z68.33 Body mass index [BMI] 33.0-33.9, adult; Z86.711 Personal history of pulmonary embolism; Z91.5 Personal history of self-harm; Z82.69 Family history of other diseases of the musculoskeletal system and connective tissue; Z87.891 Personal history of nicotine dependence; Z79.01 Long term (current) use of anticoagulants
CPT/HCPCS: 36415; 70450; 70551; 70552; 70553; 71045; 71275; 72125; 72131; 72141; 72142; 72156; 72157; 72170; 80048; 80053; 81003; 82550; 82553; 82565; 83605; 83690; 83735; 83880; 84443; 84484; 84520; 85025; 85379; 85610; 85730; 86140; 93005; 94660; 94760; 99285; A9270-GY; A9579; J2270; J2405; J3475; Q9967

== ENCOUNTER 2017-09-11 16:51 | Emergency (ER) | payer MEDICARE ==
--- NOTE | 2017-09-11 17:43 | RAD ---
HISTORY: Chest pain COMPARISONS: August 23, 2017 VIEWS: 1: frontal portable view of the chest at 5:33 PM FINDINGS: LINES AND TUBES: None. CARDIOMEDIASTINAL SILHOUETTE: The cardiomediastinal silhouette is normal for portable technique. PLEURA: The costophrenic angles are sharp. No pleural abnormalities are noted. LUNG PARENCHYMA: The lungs are clear. ABDOMEN: The upper abdomen is clear. There is no subphrenic gas. BONES AND SOFT TISSUES: No bone or soft tissue abnormalities are noted. IMPRESSION: NO ACTIVE CARDIOPULMONARY DISEASE.
[2017-09-11 18:03] LABS: ABS Basophils 0.1 10^3/ul (0-0.2); ABS Eosinophils 0.1 10^3/ul (0-0.6); ABS Lymphocytes 0.7 10^3/ul (1.0-4.8); ABS Monocytes 0.7 10^3/ul (0-0.8); ABS Neutrophils 4.5 10^3/ul (1.5-7.7); ABS Nucleated RBC 0 10^3/ul; Hematocrit 39 % (35-47); Hemoglobin 12.9 g/dl (12.0-16.0); Lymphocyte % 11.4 % (25-47); Mean Corpuscular HGB Conc 33 g/dl (31-36); Mean Corpuscular Hemoglobin 28 pg (27-31); Mean Corpuscular Volume 85 fL (80-97); Mean Platelet Volume 8.8 um3 (7.4-10.4); Nucleated Red Blood Cells % 0.1; Platelet Count 371 10^3/ul (150-450); Red Blood Count 4.57 10^6/ul (4.0-5.4); Red Cell Distribution Width 16 % (10.5-15)
[2017-09-11] MEDS ORDERED: Iohexol 350* (CONTRAST) 500 ML MDV IV ONE (19:58)
--- NOTE | 2017-09-11 21:56 | ED ---
Mario Baez Tiffany, scribed for Parveen Fernandez on 09/11/17 at 1715 . HPI Chest Pain - HPI Summary HPI Summary: The patient is a 47 y/o F BIBA c/o chest pain that began a few hours ago while she was sitting and watching television. The patient rates the pain 6/10 in severity. Symptoms aggravated by nothing. Symptoms alleviated by nothing. Reports nausea and dizziness. Denies fever and cough. Uses wheelchair and walker. - History of Current Complaint Time Seen by Provider: 09/11/17 17:05 Hx Obtained From: Patient Onset/Duration: Started Hours Ago - A few hours ago, Still Present Timing: Constant Aggravating Factor(s): Nothing Alleviating Factor(s): Nothing Associated Signs and Symptoms: Positive: Dizziness, Nausea. Negative: Fever, Cough - Additional Pertinent History Primary Care Physician: [id number] - Allergy/Home Medications Allergies/Adverse Reactions: Allergies Allergy/AdvReac Type Severity Reaction Status Date / Time bee venom protein (honey bee) Allergy Severe See Comment Verified 07/29/17 14:21 onion Allergy Severe See Comment Verified 07/29/17 14:21 Sulfa (Sulfonamide Allergy Severe Unknown Verified 07/29/17 14:21 Antibiotics) Reaction Details aspirin Allergy Intermediate Nausea Verified 07/29/17 14:21 Penicillins Allergy Intermediate See Comment Verified 07/29/17 14:21 [place] And Derivatives Allergy Unknown See Comment Verified 07/29/17 14:21 codeine Allergy Unknown Verified 08/23/17 18:43 Reaction Details Home Medications: Home Medications Acetaminophen TAB* [Tylenol TAB*] 650 mg PO Q4H PRN 09/11/17 [History Confirmed 09/11/17] Amantadine CAP* [Symmetrel CAP*] 100 mg PO BID 09/11/17 [History Confirmed 09/11] Baclofen TAB* [Lioresal TAB*] 15 mg PO BID PRN 09/11/17 [History Confirmed 09/11] Dimethyl Fumarate(NF) [Tecfidera(NF)] 240 mg PO BID 09/11/17 [History Confirmed 09/11/17] Levothyroxine TAB* [Synthroid TAB*] 75 mcg PO DAILY 09/11/17 [History Confirmed 09/11/17] Magnesium Hydroxide LIQ* [Milk of Magnesia LIQ*] 30 ml PO Q6H PRN 09/11/17 [ History Confirmed 09/11/17] Methylphenidate ER TAB* [Concerta ER TAB*] 36 mg PO DAILY 09/11/17 [History Confirmed 09/11/17] Minerin Cream* [Minerin*] 1 grams TOPICAL TID PRN 09/11/17 [History Confirmed ] Nystatin SUSPENSION* 5 ml PO QID 09/11/17 [History Confirmed 09/11/17] Omeprazole CAP* [Prilosec CAP* 20 MG] 20 mg PO DAILY 09/11/17 [History Confirmed 09/11/17] Ondansetron TAB* [Zofran 4 MG Tab*] 4 mg PO Q6H PRN 09/11/17 [History Confirmed 09/11/17] Oxybutynin TAB* [Ditropan TAB*] 5 mg PO QAM 09/11/17 [History Confirmed 09/11/17 ] Oxybutynin TAB* [Ditropan TAB*] 10 mg PO QPM 09/11/17 [History Confirmed ] Polyethylene Glycol 3350* [Miralax*] 17 gm PO DAILY PRN 09/11/17 [History Confirmed 09/11/17] Potassium Chlor TAB* [Potassium Chlor TAB 20 MEQ*] 20 meq PO DAILY 09/11/17 [ History Confirmed 09/11/17] Saccharomyces Boulardii [Probiotic] 250 mg PO BID 09/11/17 [History Confirmed ] Senna TAB* [Senokot TAB*] 1 tab PO BID 09/11/17 [History Confirmed 09/11/17] Vilazodone (NF) [Viibryd (NF)] 40 mg PO DAILY 09/11/17 [History Confirmed ] Warfarin TAB(*) [Coumadin TAB(*)] 1 mg PO QPM 09/11/17 [History Confirmed ] oxyCODONE TAB* [Roxycodone TAB 5 mg*] 10 mg PO Q4H PRN 09/11/17 [History Confirmed 09/11/17] PMH/Surg Hx/FS Hx/Imm Hx Previously Healthy: No Endocrine/Hematology History: Reports: Hx Thyroid Disease Denies: Hx Diabetes, Hx Anemia, Hx Unexplained Bleeding, Other Endocrine/ Hematological Disorders Cardiovascular History: Denies: Hx Aneurysm, Hx Angina, Hx Angioplasty, Hx Auto Implanted Cardiovert Defib, Hx Cardiac Arrest, Hx Cardiomegaly, Hx Congenital Heart Disease, Hx Congestive Heart Failure, Hx Coronary Artery Disease, Hx Deep Vein Thrombosis, Hx Embolism, Hx Hypercholesterolemia, Hx Hypotension, Hx Hypertension, Hx Pacemaker/ICD, Hx Peripheral Vascular Disease, Hx Rheumatic Fever, Hx Syncope, Hx Valvular Heart Disease, Other Cardiovascular Problems/Disorders Respiratory History: Reports: Hx Asthma - as a child, Hx Pulmonary Embolism, Hx Sleep Apnea Denies: Hx Chronic Bronchitis, Hx Chronic Obstructive Pulmonary Disease (COPD ), Hx Cystic Fibrosis, Hx Lung Cancer, Hx Pleural Effusion, Hx Pneumonia, Hx Pulmonary Edema, Hx Seasonal Allergies, Other Respiratory Problems/Disorders GI History: Reports: Hx Gastroesophageal Reflux Disease, Hx Ulcer Denies: Hx Gastrointestinal Bleed, Hx Hiatal Hernia History: Reports: Other Problems/Disorders - urinary incontinence Denies: Hx Dialysis, Hx Kidney Stones, Hx Renal Disease Musculoskeletal History: Reports: Hx Arthritis - knees, right hand, Hx Back Problems, Other Musculoskeletal History - MS Denies: Hx Bursitis, Hx Congenital Bone Abnormalities, Hx Fibromyalgia, Hx Gout, Hx Orthopedic Injury, Hx Osteoporosis, Hx Scoliosis, Hx Tendonitis Sensory History: Reports: Hx Contacts or Glasses, Other Sensory Impairments - Numbness in feet Denies: Hx Cataracts, Hx Eye Injury, Hx Eye Prosthesis, Hx Glaucoma, Hx Legally Blind, Hx Macular Degeneration, Hx Vision Problem, Hx Deafness, Hx Hearing Aid, Hx Hearing Problem Opthamlomology History: Reports: Hx Contacts or Glasses, Other Sensory Impairments - Numbness in feet Denies: Hx Cataracts, Hx Eye Injury, Hx Eye Prosthesis, Hx Glaucoma, Hx Legally Blind, Hx Macular Degeneration, Hx Vision Problem Neurological History: Reports: Hx Headaches, Hx Migraine - in the past, Hx Nerve Disease, Other Neuro Impairments/Disorders - MS Denies: Hx Dementia, Hx Developmental Delay, Hx Seizures, Hx Spinal Cord Injury, Hx Transient Ischemic Attacks (TIA) Psychiatric History: Reports: Hx Anxiety, Hx Depression, Hx Suicide Attempt, Hx Substance Abuse Denies: Hx Attention Deficit Hyperactivity Disorder, Hx Eating Disorder, Hx Panic Disorder, Hx Post Traumatic Stress Disorder, Hx Inpatient Treatment, Hx Community Mental Health Tx, Hx Schizophrenia, Hx Bipolar Disorder, Hx of Violent Episodes Against Others, Other Psychiatric Issues/Disorders - Cancer History Hx Chemotherapy: No Hx Radiation Therapy: No - Surgical History Surgery Procedure, Year, and Place: breast reduction Hx Anesthesia Reactions: No - Immunization History Date of Tetanus Vaccine: Unknown Date of Influenza Vaccine: Unk re: Fall 2014 Infectious Disease History: Denies: Hx Clostridium Difficile, Hx Hepatitis, Hx Human Immunodeficiency Virus (HIV), Hx of Known/Suspected MRSA, Hx Shingles, Hx Tuberculosis, Hx Known/ Suspected VRE, Hx Known/Suspected VRSA, History Other Infectious Disease - Family History Known Family History: Positive: Cardiac Disease - Father, Diabetes Family History: FHx of spina bifida - Social History Alcohol Use: None 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 Hx Substance Use: No Substance Use Type: Reports: None Hx Tobacco Use: Yes Smoking Status (MU): Former Smoker Type: Cigarettes Amount Used/How Often: 2 cigaretts/week Length of Time of Smoking/Using Tobacco: 2 months Have You Smoked in the Last Year: No Review of Systems Negative: Fever Positive: Chest Pain Negative: Cough Positive: Nausea Neurological: Other - Dizziness All Other Systems Reviewed And Are Negative: Yes Physical Exam - Summary Physical Exam Summary: Appearance: Well appearing, no pain distress, patient is bed-ridden because she has MS Skin: warm, dry, reflects adequate perfusion Head/face: normal Eyes: EOMI, LUIS ENT: normal Neck: supple, non-tender Respiratory: CTA, breath sounds present Cardiovascular: RRR, pulses symmetrical Abdomen: non-tender, soft Bowel: present Musculoskeletal: normal, strength/ROM intact Neuro: normal, sensory motor intact, A&Ox3 Triage Information Reviewed: Yes Vital Signs On Initial Exam: Initial Vitals Pulse Resp Pulse Ox 90 16 99 09/11/17 17:02 09/11/17 17:02 09/11/17 17:02 Vital Signs Reviewed: Yes Diagnostics - Vital Signs Vital Signs Temp Pulse Resp BP Pulse Ox 09/11/17 20:56 93 16 109/61 100 09/11/17 19:18 91 15 112/64 96 09/11/17 19:00 19 112/64 09/11/17 18:30 95 17 122/65 98 09/11/17 18:00 92 23 109/66 99 09/11/17 17:35 86 19 116/59 97 09/11/17 17:10 97.6 F 88 18 108/62 97 09/11/17 17:09 87 18 108/62 97 09/11/17 17:02 90 16 99 - Laboratory Lab Results: Lab Results 09/11/17 09/11/17 09/11/17 Range/Units 17:51 17:51 17:51 WBC 6.0 (3.5-10.8) 10^3/ul RBC 4.57 (4.0-5.4) 10^6/ul Hgb 12.9 (12.0-16.0) g/dl Hct 39 (35-47) % MCV 85 (80-97) fL MCH 28 (27-31) pg MCHC 33 (31-36) g/dl RDW 16 H (10.5-15) % Plt Count 371 (150-450) 10^3/ul MPV 8.8 (7.4-10.4) um3 Neut % (Auto) 75.4 (38-83) % Lymph % (Auto) 11.4 L (25-47) % Harper % (Auto) 11.2 H (0-7) % Eos % (Auto) 1.0 (0-6) % Baso % (Auto) 1.0 (0-2) % Absolute Neuts (auto) 4.5 (1.5-7.7) 10^3/ul Absolute Lymphs (auto) 0.7 L (1.0-4.8) 10^3/ul Absolute Monos (auto) 0.7 (0-0.8) 10^3/ul Absolute Eos (auto) 0.1 (0-0.6) 10^3/ul Absolute Basos (auto) 0.1 (0-0.2) 10^3/ul Absolute Nucleated RBC 0 10^3/ul Nucleated RBC % 0.1 INR (Anticoag Therapy) 2.00 H (0.77-1.02) APTT 36.7 H (26.0-36.3) seconds D-Dimer, Quantitative 239 H (Less Than 230) ng/mL Sodium (133-145) mmol/L Potassium (3.5-5.0) mmol/L Chloride (101-111) mmol/L Carbon Dioxide (22-32) mmol/L Anion Gap (2-11) mmol/L BUN (6-24) mg/dL Creatinine (0.51-0.95) mg/dL Est GFR ( Amer) (>60) Est GFR (Non-Af Amer) (>60) BUN/Creatinine Ratio (8-20) Glucose (70-100) mg/dL Lactic Acid (0.5-2.0) mmol/L Calcium (8.6-10.3) mg/dL Total Bilirubin (0.2-1.0) mg/dL AST (13-39) U/L ALT (7-52) U/L Alkaline Phosphatase (34-104) U/L Troponin I (<0.04) ng/mL B-Natriuretic Peptide 11 ( - 100) pg/mL Total Protein (6.4-8.9) g/dL Albumin (3.2-5.2) g/dL Globulin (2-4) g/dL Albumin/Globulin Ratio (1-3) Beta HCG, Quant mIU/mL 09/11/17 09/11/17 09/11/17 Range/Units 17:51 17:51 19:58 WBC (3.5-10.8) 10^3/ul RBC (4.0-5.4) 10^6/ul Hgb (12.0-16.0) g/dl Hct (35-47) % MCV (80-97) fL MCH (27-31) pg MCHC (31-36) g/dl RDW (10.5-15) % Plt Count (150-450) 10^3/ul MPV (7.4-10.4) um3 Neut % (Auto) (38-83) % Lymph % (Auto) (25-47) % Harper % (Auto) (0-7) % Eos % (Auto) (0-6) % Baso % (Auto) (0-2) % Absolute Neuts (auto) (1.5-7.7) 10^3/ul Absolute Lymphs (auto) (1.0-4.8) 10^3/ul Absolute Monos (auto) (0-0.8) 10^3/ul Absolute Eos (auto) (0-0.6) 10^3/ul Absolute Basos (auto) (0-0.2) 10^3/ul Absolute Nucleated RBC 10^3/ul Nucleated RBC % INR (Anticoag Therapy) (0.77-1.02) APTT (26.0-36.3) seconds D-Dimer, Quantitative (Less Than 230) ng/mL Sodium 139 (133-145) mmol/L Potassium 3.9 (3.5-5.0) mmol/L Chloride 101 (101-111) mmol/L Carbon Dioxide 29 (22-32) mmol/L Anion Gap 9 (2-11) mmol/L BUN 5 L (6-24) mg/dL Creatinine 0.77 (0.51-0.95) mg/dL Est GFR ( Amer) 102.9 (>60) Est GFR (Non-Af Amer) 80.0 (>60) BUN/Creatinine Ratio 6.5 L (8-20) Glucose 92 (70-100) mg/dL Lactic Acid 0.9 (0.5-2.0) mmol/L Calcium 9.9 (8.6-10.3) mg/dL Total Bilirubin 0.50 (0.2-1.0) mg/dL AST 24 (13-39) U/L ALT 18 (7-52) U/L Alkaline Phosphatase 129 H (34-104) U/L Troponin I 0.00 0.01 (<0.04) ng/mL B-Natriuretic Peptide ( - 100) pg/mL Total Protein 7.2 (6.4-8.9) g/dL Albumin 4.1 (3.2-5.2) g/dL Globulin 3.1 (2-4) g/dL Albumin/Globulin Ratio 1.3 (1-3) Beta HCG, Quant 0.72 mIU/mL Result Diagrams: 09/11/17 17:51 09/11/17 17:51 Lab Statement: Any lab studies that have been ordered have been reviewed, and results considered in the medical decision making process. - Radiology CXR Radiology Interpretation Completed By: Radiologist - NO ACTIVE CARDIOPULMONARY DISEASE. ED physician has reviewed this report. - EKG 17:07 Cardiac Rate: NL - 87 BPM EKG Rhythm: Sinus Rhythm EKG Interpretation: No acute changes Chest Pain Course/Dx - Course Course Of Treatment: 47 y/o F presents with chest pain. Labs obtained. CXR and EKG were normal. Patient will be signed out to Dr. Villavicencio, awaiting CT chest results. - Chest Pain Differential Diagnosis/HQI/PQRI: ACS, Lower Respiratory Infection, Pulmonary Embolism - Diagnoses Provider Diagnoses: Chest pain Discharge - Sign-Out/Discharge Documenting (check all that apply): Sign-Out Patient Signing out patient TO: Pj Villavicencio - Awaiting CT chest results - Discharge Plan Referrals: Chiki Chandler MD [Primary Care Provider] - The documentation as recorded by the Mario mark Tiffany accurately reflects the service I personally performed and the decisions made by , Parveen Fernandez.
[2017-09-11] MEDS ORDERED: traMADol TAB* 50 MG PO ONE (22:46)
[2017-09-11] MEDS ORDERED: Ondansetron ODT TAB* 4 MG SL ONE (22:46)
[2017-09-12] MEDS ORDERED: Ondansetron INJ* 2 MG/ML VIAL IV ONE (00:16)
[2017-09-12] MEDS ORDERED: Enoxaparin(*) 80 MG/0.8 ML SYR SUBCUT ONE (00:17)
[2017-09-12 01:32] VITALS: BP 100/54
--- NOTE | 2017-09-12 20:17 | ED ---
IBe Sixian, scribed for Pj Villavicencio MD on 09/11/17 at 2223 . Re-Evaluation - Re-Evaluation Second Eval Re-Evaluation Time: 00:07 Change: Improved - Pt chest pain improved with oral analgesia. pt resting comfortably in bed. Pt currently taking Coumadin with INR at 2.0. pt with slight elevation of D-dimer. pt with no hypoxia, tachypnea, or respiratory distress. Plan to give dose Lovenox and will tx symptomatically. Course/Dx - Course Course Of Treatment: 47 y/o F presents with chest pain. Labs obtained. CXR and EKG were normal. Patient will be signed out to Dr. Villavicencio, awaiting CT chest results. - Diagnoses Provider Diagnoses: Chest pain Discharge - Sign-Out/Discharge Documenting (check all that apply): Discharge, Receiving Sign-Out Receiving patient FROM: Parveen Fernandez - Pending CTA results. - Discharge Plan Condition: Improved Disposition: HOME Prescriptions: Ketorolac TAB * [Toradol TAB *] 10 mg PO Q6H PRN #10 tab PRN Reason: Pain Ondansetron ODT TAB* [Zofran 4 MG Odt TAB*] 4 mg PO Q6H PRN #6 tab.odt PRN Reason: Nausea Patient Education Materials: Chest Pain (ED) Referrals: Chiki Chandler MD [Primary Care Provider] - - Billing Disposition and Condition Condition: IMPROVED Disposition: HOME The documentation as recorded by the Be mark Sixian accurately reflects the service I personally performed and the decisions made by inMaye Omari A, MD.
== END 2017-09-12 01:50 | disposition home or self-care (01) ==
LOC: ED 16:51
DX: R07.9 Chest pain, unspecified (principal); Z79.01 Long term (current) use of anticoagulants; R42 Dizziness and giddiness; R11.0 Nausea; Z87.19 Personal history of other diseases of the digestive system; Z87.891 Personal history of nicotine dependence
CPT/HCPCS: 36415; 71045; 71275; 80053; 83605; 83880; 84484; 84702; 85025; 85379; 85610; 85730; 93005; 96374; 99284; A9270-GY; J1650; J2405

== ENCOUNTER 2018-03-09 13:21 | Emergency (ER) | payer MEDICARE, MEDICAID ==
[2018-03-09] MEDS ORDERED: oxyCODONE/Acetamin 5/325 MG* TAB PO ONE (13:47)
--- NOTE | 2018-03-09 13:52 | ED ---
Lower Extremity - HPI Summary HPI Summary: Patient is a 39-year-old female who presents emergency department for bilateral lower extremity injuries that occurred just prior to arrival. Patient has a history of MS and typically its around in her motorized scooter. Patient states she went to let her eat into her apartment today and when she stood up from her chair to answer fall and she lost her balance and fell to her knees. Patient states she twisted bilateral ankles and fell to her knees. Her aide was eventually able to get into her apartment and helped her to her back. Patient is not anticoagulated. She denies headache or loss of consciousness. Patient states she has chronic low back pain that is mildly exacerbated since lying flat on her back. She denies bowel or bladder incontinence or retention. She does note new tingling to bilateral feet. Symptoms are [id number] in severity. Movement makes symptoms worse. Rest makes symptoms better. - History of Current Complaint Stated Complaint: FALL Time Seen by Provider: 03/09/18 13:29 Hx Obtained From: Patient - Allergies/Home Medications Allergies/Adverse Reactions: Allergies Allergy/AdvReac Type Severity Reaction Status Date / Time bee venom protein (honey bee) Allergy Severe See Comment Verified 03/02/18 10:15 onion Allergy Severe See Comment Verified 03/02/18 10:15 Sulfa (Sulfonamide Allergy Severe Unknown Verified 03/02/18 10:15 Antibiotics) Reaction Details aspirin Allergy Intermediate Nausea Verified 03/02/18 10:15 Penicillins Allergy Intermediate See Comment Verified 03/02/18 10:15 [place] And Derivatives Allergy Unknown See Comment Verified 03/02/18 10:15 PMH/Surg Hx/FS Hx/Imm Hx Previously Healthy: Yes Endocrine/Hematology History: Reports: Hx Thyroid Disease Denies: Hx Diabetes, Hx Anemia, Hx Unexplained Bleeding, Other Endocrine/ Hematological Disorders Cardiovascular History: Denies: Hx Aneurysm, Hx Angina, Hx Angioplasty, Hx Auto Implanted Cardiovert Defib, Hx Cardiac Arrest, Hx Cardiomegaly, Hx Congenital Heart Disease, Hx Congestive Heart Failure, Hx Coronary Artery Disease, Hx Deep Vein Thrombosis, Hx Embolism, Hx Hypercholesterolemia, Hx Hypotension, Hx Hypertension, Hx Pacemaker/ICD, Hx Peripheral Vascular Disease, Hx Rheumatic Fever, Hx Syncope, Hx Valvular Heart Disease, Other Cardiovascular Problems/Disorders Respiratory History: Reports: Hx Asthma - as a child, Hx Pulmonary Embolism, Hx Sleep Apnea Denies: Hx Chronic Bronchitis, Hx Chronic Obstructive Pulmonary Disease (COPD ), Hx Cystic Fibrosis, Hx Lung Cancer, Hx Pleural Effusion, Hx Pneumonia, Hx Pulmonary Edema, Hx Seasonal Allergies, Other Respiratory Problems/Disorders GI History: Reports: Hx Gastroesophageal Reflux Disease, Hx Ulcer Denies: Hx Gastrointestinal Bleed, Hx Hiatal Hernia History: Reports: Other Problems/Disorders - urinary incontinence Denies: Hx Dialysis, Hx Kidney Stones, Hx Renal Disease Musculoskeletal History: Reports: Hx Arthritis - knees, right hand, Hx Back Problems, Other Musculoskeletal History - MS Denies: Hx Bursitis, Hx Congenital Bone Abnormalities, Hx Fibromyalgia, Hx Gout, Hx Orthopedic Injury, Hx Osteoporosis, Hx Scoliosis, Hx Tendonitis Sensory History: Reports: Hx Contacts or Glasses, Other Sensory Impairments - Numbness in feet Denies: Hx Cataracts, Hx Eye Injury, Hx Eye Prosthesis, Hx Glaucoma, Hx Legally Blind, Hx Macular Degeneration, Hx Vision Problem, Hx Deafness, Hx Hearing Aid, Hx Hearing Problem Opthamlomology History: Reports: Hx Contacts or Glasses, Other Sensory Impairments - Numbness in feet Denies: Hx Cataracts, Hx Eye Injury, Hx Eye Prosthesis, Hx Glaucoma, Hx Legally Blind, Hx Macular Degeneration, Hx Vision Problem Neurological History: Reports: Hx Headaches, Hx Migraine - in the past, Hx Nerve Disease, Other Neuro Impairments/Disorders - MS Denies: Hx Dementia, Hx Developmental Delay, Hx Seizures, Hx Spinal Cord Injury, Hx Transient Ischemic Attacks (TIA) Psychiatric History: Reports: Hx Anxiety, Hx Depression, Hx Suicide Attempt, Hx Substance Abuse Denies: Hx Attention Deficit Hyperactivity Disorder, Hx Eating Disorder, Hx Panic Disorder, Hx Post Traumatic Stress Disorder, Hx Inpatient Treatment, Hx Community Mental Health Tx, Hx Schizophrenia, Hx Bipolar Disorder, Hx of Violent Episodes Against Others, Other Psychiatric Issues/Disorders - Cancer History Hx Chemotherapy: No Hx Radiation Therapy: No - Surgical History Surgery Procedure, Year, and Place: breast reduction Hx Anesthesia Reactions: No - Immunization History Date of Tetanus Vaccine: Unknown Date of Influenza Vaccine: Unk re: Fall 2014 Infectious Disease History: Denies: Hx Clostridium Difficile, Hx Hepatitis, Hx Human Immunodeficiency Virus (HIV), Hx of Known/Suspected MRSA, Hx Shingles, Hx Tuberculosis, Hx Known/ Suspected VRE, Hx Known/Suspected VRSA, History Other Infectious Disease - Family History Known Family History: Positive: Unknown, Cardiac Disease - Father, Diabetes Family History: FHx of spina bifida - Social History Occupation: Unemployed, Disabled Lives: Alone Alcohol Use: None 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 Positive: Other - Pain to bilateral LE and UEs. Low back pain Positive: Bruising Neurological: Negative Negative: Headache All Other Systems Reviewed And Are Negative: Yes Physical Exam Triage Information Reviewed: Yes Vital Signs Reviewed: Yes Appearance: Positive: Well-Appearing - Pt. lying in bed in NAD. Skin: Positive: Warm, Dry Head/Face: Positive: Normal Head/Face Inspection Eyes: Positive: Normal, EOMI Neck: Positive: Supple Musculoskeletal: Positive: Other - Diffuse lumbar tenderness. Decreased sensation to dorsum of bilat feet. 5/5 strength to bilateral LEs. Ecchymosis and pain to right knee and diffuse pain to left knee. Pt. notes chronic pain to hips without change. Neurological: Positive: Normal, CN Intact II-III Psychiatric: Positive: Affect/Mood Appropriate - [place] Coma Scale Best Eye Response: 4 - Spontaneous Best Motor Response: 6 - Obeys Commands Best Verbal Response: 5 - Oriented Coma Scale Total: 15 Lower Extremity Course/Dx - Course Course Of Treatment: Pt. presenting for bilateral ankle/knee pain and low back pain after a mechanical fall. Pt. states she takes oxycodone at home and did not take dose today. Percocet ordered in ER. Xrays obtained. Xrays of ankles show mild edema without fx or dislocation. Xrays of knees and back are negative for acute findings. Xrays reads per radiology. Results discussed. Recommend close f.u with PCP. To ice and elevate. Continue home medicatons as directed. To return to ER if symptoms change or worsen. Pt. understands and agrees with plan. - Diagnoses Differential Diagnosis/HQI/PQRI: Positive: Contusion, Fracture (Closed), Sprain , Strain Provider Diagnoses: Ankle sprain, Knee contusion, Lumbar back pain Discharge - Sign-Out/Discharge Documenting (check all that apply): Patient Departure - Discharge Plan Condition: Good Disposition: HOME Patient Education Materials: Ankle Sprain (ED), Knee Pain (ED) Referrals: Chiki Chandler MD [Primary Care Provider] - Additional Instructions: Schedule a follow up appointment with your PCP Continue home medications as directed Ice and elevate affected areas Return to ER if symptoms change or worsen - Billing Disposition and Condition Condition: GOOD Disposition: Home
--- NOTE | 2018-03-09 15:05 | RAD ---
Indication: Back pain post fall out of wheelchair. Comparison: August 23, 2017 CT. Technique: AP, lateral, and oblique views lumbar sacral spine. Report: Alignment is anatomic. No cortical disruption or trabecular impaction to indicate a vertebral body fracture. Oblique views without evidence for spondylolysis. Preserved disc spaces. Unremarkable soft tissue contours. Large volume of formed stool present throughout the colon. IMPRESSION: #. No radiographic evidence for traumatic lumbar sacral spine injury.
--- NOTE | 2018-03-09 15:08 | RAD ---
INDICATION: Bilateral ankle injury. TECHNIQUE: 3 views of both ankles were obtained. FINDINGS: There is bilateral diffuse soft tissue swelling. The bones appear osteoporotic and in normal alignment. There is mild deformity of the right medial malleolus suggestive of an old fracture. No acute fracture is seen. IMPRESSION: SOFT TISSUE SWELLING, NO ACUTE FRACTURE IS SEEN.
--- NOTE | 2018-03-09 15:08 | RAD ---
Indication: Knee pain post fall out of wheelchair. August 23, 2017 RIGHT knee Comparison: August 23, 2017 RIGHT knee Technique: Bilateral knees. AP, tunnel, sunrise, and crosstable lateral views. REPORT AND IMPRESSION: #. Both knees demonstrate normal articular alignment and absence of joint effusions or fracture. Preserved joint spaces. Unremarkable soft tissue contours. #. Bone density appears decreased throughout.
[2018-03-09 16:26] VITALS: BP 115/67
== END 2018-03-09 16:25 | disposition home or self-care (01) ==
LOC: ED 13:21
DX: S93.402A Sprain of unspecified ligament of left ankle, initial encounter (principal); S93.401A Sprain of unspecified ligament of right ankle, initial encounter; S80.02XA Contusion of left knee, initial encounter; S80.01XA Contusion of right knee, initial encounter; M54.5 Low back pain; W18.30XA Fall on same level, unspecified, initial encounter; Y92.039 Unspecified place in apartment as the place of occurrence of the external cause; Z87.891 Personal history of nicotine dependence; G35 Multiple sclerosis; Z88.2 Allergy status to sulfonamides; Z88.5 Allergy status to narcotic agent; Z88.0 Allergy status to penicillin
CPT/HCPCS: 72110; 99282; A9270-GY

== ENCOUNTER 2018-06-27 00:15 | Observation (INO) | payer MEDICARE, MEDICAID ==
[2018-06-27] MEDS ORDERED: NS 0.9% 1000 ML* 1,000 ML IV ONE (00:20)
--- OUTSIDE RECORDS SUMMARY | 2018-06-27 00:21 | XMS REPORT ---
:1970 Author Organization [facility]ly [facility] Care Team Providers Name Role Phone Michael Dooley Unavailable Unavailable PROBLEMS Unknown Problems ALLERGIES No Information ENCOUNTERS Encounter Location Date Diagnosis [address] [address] Aug, [address] [address] Jul, [address] [address] Jul, [address] [address] Jul, [address] [address] Jun, [address] [address] Jun, [facility] [address] [place], [place] May, [id number] [address] Apr, [facility] [address] [place], [place] Apr, [id number] [address] 09 Mar, 2018 IMMUNIZATIONS No Known Immunizations SOCIAL HISTORY Never Assessed REASON FOR REFERRAL FUNCTIONAL STATUS PLAN OF CARE VITAL SIGNS MEDICATIONS Unknown Medications PROCEDURES No Known procedures RESULTS No Results REASON FOR VISIT needs an appt Dentures approved. Insurance Providers [facility] Health Member Patient Patient Patient Patient Patient Subscriber Subscriber Subscriber Group Insurance Plan Plan Plan Plan ID Relationship Address Phone Name Date of ID Name Date of No Type Insurance Insurance Insurance Coverage to Subscriber Address Phone Name Dates i[employer]le [phone] i[employer] self Karla [id number] [place] [id number] [place] [employer] Dept [facility] [address] Medicaid [id number] [phone] Medicaid self Karla [id number] [facility] [address] [address] Aetna [phone] Aetna self Karla [id number] Medicare [id number] Medicare [place] Adv PPO [place] Adv PPO [id number]
--- NOTE | 2018-06-27 00:30 | ED ---
Neurological HPI - HPI Summary HPI Summary: Time seen by provider: 00:11. The patient is a 48 y/o F presenting to [facility] arriving by ambulance with a chief complaint of possible seizure [employer]. Per patient's son, he heard a howling noise from his mother's room, he went into the room where he saw his mother's right harm sticking straight up in the air with her body shaking. The pt seemed to be unresponsive at this time. He alerted a neighbor, and EMS was called. Per EMS, the patient has slightly slurred speech with some motor weakness at the time of arrical, but her symptoms improved on the way to the ED as she regained bilateral grasp and is able to answer questions appropriately. She denies any pain at this time, including CP and abd pain, but she is lethargic. Hx of MS and chemotherapy. - History of Current Complaint Stated Complaint: AMS Time Seen by Provider: 06/27/18 00:20 Hx Obtained From: Patient, EMS Onset/Duration: Sudden Onset Timing: Sudden Onset Onset Severity: Moderate Current Severity: Mild Pain Scale Used: 0-10 Numeric Character: Lethargy, Responsiveness - decreased Aggravating: Nothing Alleviating: Nothing Associated Signs and Symptoms: Positive: Impaired Speech - slightly slurred. Negative: Pain, Chest Pain - Additional Pertinent History Primary Care Physician: [id number] - Allergy/Home Medications Allergies/Adverse Reactions: Allergies Allergy/AdvReac Type Severity Reaction Status Date / Time bee venom protein (honey bee) Allergy Severe See Comment Verified 03/02/18 10:15 onion Allergy Severe See Comment Verified 03/02/18 10:15 Sulfa (Sulfonamide Allergy Severe Unknown Verified 03/02/18 10:15 Antibiotics) Reaction Details aspirin Allergy Intermediate Nausea Verified 03/02/18 10:15 Penicillins Allergy Intermediate See Comment Verified 03/02/18 10:15 [place] And Derivatives Allergy Unknown See Comment Verified 03/02/18 10:15 Home Medications: Home Medications Brexpiprazole (Nf) [Rexulti] 1 mg PO DAILY 06/27/18 [History Confirmed 06/27/18] Linaclotide (NF) [Linzess (NF)] 290 mcg PO DAILY 06/27/18 [History Confirmed 12/08] [place] Carbonate ER (NF) 900 mg PO BEDTIME 06/27/18 [History Confirmed 06/27/18 ] Prochlorperazine TAB* [Compazine Tab*] 5 mg PO Q6H PRN 06/27/18 [History Confirmed 06/27/18] PMH/Surg Hx/FS Hx/Imm Hx Endocrine/Hematology History: Reports: Hx Thyroid Disease Denies: Hx Diabetes, Hx Anemia, Hx Unexplained Bleeding, Other Endocrine/ Hematological Disorders Cardiovascular History: Denies: Hx Aneurysm, Hx Angina, Hx Angioplasty, Hx Auto Implanted Cardiovert Defib, Hx Cardiac Arrest, Hx Cardiomegaly, Hx Congenital Heart Disease, Hx Congestive Heart Failure, Hx Coronary Artery Disease, Hx Deep Vein Thrombosis, Hx Embolism, Hx Hypercholesterolemia, Hx Hypotension, Hx Hypertension, Hx Pacemaker/ICD, Hx Peripheral Vascular Disease, Hx Rheumatic Fever, Hx Syncope, Hx Valvular Heart Disease, Other Cardiovascular Problems/Disorders Respiratory History: Reports: Hx Asthma - as a child, Hx Pulmonary Embolism, Hx Sleep Apnea Denies: Hx Chronic Bronchitis, Hx Chronic Obstructive Pulmonary Disease (COPD ), Hx Cystic Fibrosis, Hx Lung Cancer, Hx Pleural Effusion, Hx Pneumonia, Hx Pulmonary Edema, Hx Seasonal Allergies, Other Respiratory Problems/Disorders GI History: Reports: Hx Gastroesophageal Reflux Disease, Hx Ulcer Denies: Hx Gastrointestinal Bleed, Hx Hiatal Hernia History: Reports: Other Problems/Disorders - urinary incontinence Denies: Hx Dialysis, Hx Kidney Stones, Hx Renal Disease Musculoskeletal History: Reports: Hx Arthritis - knees, right hand, Hx Back Problems, Other Musculoskeletal History - MS Denies: Hx Bursitis, Hx Congenital Bone Abnormalities, Hx Fibromyalgia, Hx Gout, Hx Orthopedic Injury, Hx Osteoporosis, Hx Scoliosis, Hx Tendonitis Sensory History: Reports: Hx Contacts or Glasses, Other Sensory Impairments - Numbness in feet Denies: Hx Cataracts, Hx Eye Injury, Hx Eye Prosthesis, Hx Glaucoma, Hx Legally Blind, Hx Macular Degeneration, Hx Vision Problem, Hx Deafness, Hx Hearing Aid, Hx Hearing Problem Opthamlomology History: Reports: Hx Contacts or Glasses, Other Sensory Impairments - Numbness in feet Denies: Hx Cataracts, Hx Eye Injury, Hx Eye Prosthesis, Hx Glaucoma, Hx Legally Blind, Hx Macular Degeneration, Hx Vision Problem Neurological History: Reports: Hx Headaches, Hx Migraine - in the past, Hx Nerve Disease, Other Neuro Impairments/Disorders - MS Denies: Hx Dementia, Hx Developmental Delay, Hx Seizures, Hx Spinal Cord Injury, Hx Transient Ischemic Attacks (TIA) Psychiatric History: Reports: Hx Anxiety, Hx Depression, Hx Suicide Attempt, Hx Substance Abuse Denies: Hx Attention Deficit Hyperactivity Disorder, Hx Eating Disorder, Hx Panic Disorder, Hx Post Traumatic Stress Disorder, Hx Inpatient Treatment, Hx Community Mental Health Tx, Hx Schizophrenia, Hx Bipolar Disorder, Hx of Violent Episodes Against Others, Other Psychiatric Issues/Disorders - Cancer History Hx Chemotherapy: No Hx Radiation Therapy: No - Surgical History Surgery Procedure, Year, and Place: breast reduction Hx Anesthesia Reactions: No - Immunization History Date of Tetanus Vaccine: Unknown Date of Influenza Vaccine: Unk re: Fall 2014 Infectious Disease History: Denies: Hx Clostridium Difficile, Hx Hepatitis, Hx Human Immunodeficiency Virus (HIV), Hx of Known/Suspected MRSA, Hx Shingles, Hx Tuberculosis, Hx Known/ Suspected VRE, Hx Known/Suspected VRSA, History Other Infectious Disease, Traveled Outside the [place] in Last 30 Days - Family History Known Family History: Positive: Cardiac Disease - Father, Diabetes Family History: FHx of spina bifida - Social History Alcohol Use: None 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 Hx Substance Use: No Substance Use Type: Reports: None Hx Tobacco Use: Yes Smoking Status (MU): Former Smoker Type: Cigarettes Amount Used/How Often: 2 cigaretts/week Length of Time of Smoking/Using Tobacco: 2 months Have You Smoked in the Last Year: No Review of Systems Positive: Other - lethargic Negative: Chest Pain Negative: Abdominal Pain Neurological: Other - unresponsive and then had slight slurring of speech, shaking of right arm per EMS before arrival All Other Systems Reviewed And Are Negative: Yes Physical Exam - Summary Physical Exam Summary: Appearance: Well-appearing, Well-nourished, lying in bed comfortably Skin: Warm, dry, no obvious rash Eyes: sclera anicteric, no conjunctival pallor ENT: mucous membranes moist, pharynx appears normal Neck: Supple, nontender Respiratory: Clear to auscultation, no signs of respiratory distress Cardiovascular: Normal S1, S2. No murmurs. Normal distal pulses in tibial and radial bilaterally. Abdomen: Soft, nontender, normal active bowel sounds present Musculoskeletal: Mild to moderate diffuse muscle weakness which is nonlateralizing, ROM Intact, Motor function in all 4 extremities is normal and symmetric. There is no rigidity or tremor noted. Neurological: A&Ox3, awake and alert, mentation is normal, speech is fluent and appropriate, Level of consciousness nml. The patient is alert and oriented. Cranial nerves are grossly intact. Gaze is intermittently disconjugate and without nystagmus. Peripheral vision is intact to confrontation. There are no gross sensory abnormalities to light touch. There is no truncal or fine motor ataxia. Gait is normal. NIH: 2, GCS: 0. Psychiatric: affect is normal, does not appear anxious or depressed Triage Information Reviewed: Yes Vital Signs Reviewed: Yes - [place] Coma Scale Best Eye Response: 4 - Spontaneous Best Motor Response: 6 - Obeys Commands Best Verbal Response: 5 - Oriented Coma Scale Total: 15 Diagnostics - Laboratory Result Diagrams: 06/27/18 01:18 06/30/18 11:53 Lab Statement: Any lab studies that have been ordered have been reviewed, and results considered in the medical decision making process. - Radiology CXR Radiology Interpretation Completed By: Radiologist Summary of Radiographic Findings: No acute disease. ED physician has reviewed this report. - CT Brain CT CT Interpretation Completed By: Radiologist Summary of CT Findings: 1. No acute intracranial hemorrhage or acute territorial type infarct. 2. Moderate nonspecific periventricular cerebral white matter disease is again visualized. This can be consistent with the clinical history of multiple sclerosis. 3. Mild stable ventriculomegaly. 4. If further evaluation is clinically indicated, an MRI of the brain with/without contrast is recommended. ED physician has reviewed this report. - EKG 00:33 Cardiac Rate: NL - 90 BPM EKG Rhythm: Sinus Rhythm Summary of EKG Findings: NSR at 90 BPM, P waves, QRS complex, and T waves are within normal limits, T waves and intervals are normal, no ischemic changes. This is a normal EKG. NIH Scale - NIH Scale Level of Consciousness: Alert/Keenly Responsive Ask Patient the Month and His/Her Age: [age] Correct/Not Aphasic Ask Pt to Open/Close Eyes and Scrap Wheeler/Release Non-Paretic Hand: Both Correctly Best Gaze (Only Horizontal Eye Movement): Normal Visual Field Testing: No Visual Loss Facial Paresis-Pt to Smile & Close Eyes or Grimace Symmetry: Normal/Symmetrical Motor Function - Right Arm: No Drift-Holds 10 Seconds Motor Function - Left Arm: No Drift-Holds 10 Seconds Motor Function - Right Leg: No Drift-Holds 10 Seconds Motor Function - Left Leg: No Drift-Holds 10 Seconds Limb Ataxia-Must be out of Proportion to Weakness Present: Absent Sensory (Use Pinprick to Test Arms/Legs/Trunk/Face): Normal Best Language (Describe Picture, Name Items): No Aphasia Dysarthria (Read Several Words): Slurs Some Words Extinction and Inattention: No Abnormality Total Score: 2 Course/Dx - Course Course Of Treatment: Time seen by provider: 00:11. The patient is a 48 y/o F presenting to [facility] arriving by ambulance with a chief complaint of possible seizure [employer]. Per patient's son, he heard a howling noise from his mother's room , he went into the room where he saw his mother's right harm sticking straight up in the air with her body shaking. The pt seemed to be unresponsive at this time. He alerted a neighbor, and EMS was called. Per EMS, the patient has slightly slurred speech with some motor weakness at the time of arrical, but her symptoms improved on the way to the ED as she regained bilateral grasp and is able to answer questions appropriately. She denies any pain at this time, including CP and abd pain. Hx of MS and chemotherapy. Upon physical exam, the patient exhibits intermittent disconjugate gaze, mild to moderate diffuse muscle weakness which is nonlateralizing, and speech is normal. NIH: 2 ( confusion and dysarthria), GCS: 15. In the ED course, the patient was given Ns. EKG is normal. CXR is negative. Brain CT reveals consistency with multiple sclerosis but is otherwise negative. Tana Faith called at 00:18; terminated at 00 :45 because workup suggests seizure not stroke. Patient in CT at 00:19. She is diagnosed with new onset seizure. I consulted with Dr. Corea, hospitalist, who accepts the patient for admission at 02:16. Patient agrees with this plan and understands the need for admission. - Diagnoses Provider Diagnoses: New onset seizure During the Visit The Following Alert/Code Occurred: Tana Faith - called at 00:18 ; terminated at 00:45 - Physician Notifications Discussed Care Of Patient With: Zane Corea - hospitalist Time Discussed With Above Provider: 02:16 Instructed by Provider To: Other - Dr. Corea accepts the patient for admission. Discharge - Sign-Out/Discharge Documenting (check all that apply): Patient Departure - Patient will be admitted to [facility] for further care by Dr. [place]. - Discharge Plan Condition: Fair Disposition: ADMITTED TO [facility] - Billing Disposition and Condition Condition: FAIR Disposition: Admitted to [facility] - Attestation Statements Document Initiated by Polly: Yes Documenting Nixonibe: Adele Doan Provider For Whom Polly is Documenting (Include Credential): Dr. Hayes Leal MD Scribe Attestation: Adele Baez scribed for Dr. Hayes Leal MD on 07/06/18 at 0304. Scribe Documentation Reviewed: Yes Provider Attestation: The documentation as recorded by the Adele mark accurately reflects the service I personally performed and the decisions made by me, Dr. Hayes Leal MD Status of Polly Document: Viewed
[2018-06-27 01:39] LABS: Hematocrit 42 % (35-47); Hemoglobin 13.7 g/dl (12.0-16.0); Mean Corpuscular HGB Conc 33 g/dl (31-36); Mean Corpuscular Hemoglobin 29 pg (27-31); Mean Corpuscular Volume 90 fL (80-97); Red Blood Count 4.68 10^6/ul (4.00-5.40); Red Cell Distribution Width 15 % (10.5-15); White Blood Count 10.3 10^3/ul (3.5-10.8)
[2018-06-27 01:40] LABS: Activated Partial Thrombo Time 24.1 seconds (26.0-36.3); INR 1.02 (0.77-1.02)
[2018-06-27 01:51] LABS: Albumin 4.1 g/dL (3.2-5.2); Albumin/Globulin Ratio 1.4 (1-3); BUN/Creatinine Ratio 9.1 (8-20); Calcium 9.9 mg/dL (8.6-10.3); EGFR Non-African American 79.7 (>60); Globulin 2.9 g/dL (2-4); HDL Cholesterol 59.7 mg/dL; Potassium 3.6 mmol/L (3.5-5.0); Total Bilirubin 0.6 mg/dL (0.2-1.0)
[2018-06-27 02:16] LABS: ABS Basophils 0.1 10^3/ul (0-0.2); ABS Eosinophils 0.3 10^3/ul (0-0.6); ABS Lymphocytes 0.7 10^3/ul (1.0-4.8); ABS Monocytes 0.8 10^3/ul (0-0.8); ABS Neutrophils 8.4 10^3/ul (1.5-7.7); ABS Nucleated RBC 0 10^3/ul; Eosinophil % 3.1 %; Nucleated Red Blood Cells % 0.1; Platelet Count 348 10^3/ul (150-450)
[2018-06-27] MEDS ORDERED: Polyethylene Glycol 3350* 17 GM PACKET PO PRN (03:16)
[2018-06-27] MEDS ORDERED: Ondansetron TAB* 4 MG PO PRN (03:16)
[2018-06-27] MEDS ORDERED: Prochlorperazine TAB* 5 MG PO PRN (03:16)
[2018-06-27] MEDS ORDERED: Acetaminophen TAB* 325 MG PO PRN ×2 (03:16→09:48)
--- NOTE | 2018-06-27 04:11 | ADMNOTE ---
Subjective Date of Service: 06/27/18 Interval History: HISTORY and PHYSICAL CC: witnessed seizure HPI: Patient is 48 year old woman with MS, who was in her usual state of health the day prior to admission. She was apparently sleeping tonight, and her 11 year old son was sleeping in his room. The son reported to EMS that he heard a strange loud vocalization sound, and he found his mother in a tonic/clonic seizure, with the right arm outstretched. The patient has no memory of this. She has been quite confused since arrival in the ED. She reports no history of seizures. The newest medication is an oral MS medication, but she has not been taking that recently. Denies pain, headache. Denies chest pain. Feels cold. 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, , non-smoker, no alcohol, no drug use Past Medical History: Findings - PMH MS, optic neuritis, depression, asthma, migraines, urinary incontinence, h/o LT femoral DVT, h/o myositis hip/jaw Review of Systems - Measurements Intake and Output: Intake and Output Last 24 Hours 06/24/18 06/25/18 06/26/18 06/27/18 06:59 06:59 06:59 06:59 Weight 74.843 kg - Review of Systems Constitutional Symptoms: Positive: Fatigue Dermatology: Positive: Normal HEENT: Positive: Normal Eyes: Positive: Normal Thyroid: Positive: Cold Intolerance Pulmonary: Positive: Asthma Negative: Wheezing Cardiology: Negative: Chest Pain, Peripheral Vascular Dis Gastroenterology: Positive: Normal Genital - Urinary: Positive: Other - urge incontinence Endocrinology: Positive: Normal Neurology: Positive: Migraines, Change in Memory, Change in Walking Negative: Hx of Stroke\TIA, Hx of Seizures Psychiatry: Positive: Depression Objective Active Medications: Acetaminophen (Tylenol Tab*) 650 mg PO Q4H PRN PRN Reason: FEVER/PAIN Amantadine HCl (Symmetrel Cap*) 100 mg PO BID [facility] Baclofen (Lioresal Tab*) 15 mg PO BID [facility] Brexpiprazole (Rexulti) 1 mg PO DAILY [facility] Enoxaparin Sodium (Lovenox(*)) 40 mg SUBCUT Q24H [facility] Sodium Chloride (Ns 0.9% 1000 Ml*) 1,000 mls @ 100 mls/hr IV PER RATE [facility] Levothyroxine Sodium (Synthroid Tab*) 75 mcg PO DAILY [facility] Linaclotide (Linzess (Nf)) 290 mcg PO DAILY [facility] Carbonate ([place] Carbonate Er (Nf)) 900 mg PO BEDTIME [facility]; Protocol Methylphenidate HCl (Concerta Er Tab*) 36 mg PO DAILY [facility] Omeprazole (Prilosec Cap*) 20 mg PO DAILY [facility] Ondansetron HCl (Zofran Tab*) 4 mg PO Q6H PRN PRN Reason: NAUSEA Oxybutynin Chloride (Ditropan Tab*) 5 mg PO QAM [place] Oxybutynin Chloride (Ditropan Tab*) 10 mg PO QPM [facility] Polyethylene Glycol/Electrolytes (Miralax*) 17 gm PO DAILY PRN PRN Reason: CONSTIPATION Potassium Chloride (Klor Con Er Tab*) 10 meq PO DAILY [facility] Prochlorperazine (Compazine Tab*) 5 mg PO Q6H PRN PRN Reason: NAUSEA Vilazodone HCl (Viibryd (Nf)) 40 mg PO DAILY [facility] Vital Signs - 8 hr 06/27/18 06/27/18 06/27/18 00:26 00:30 00:31 Temperature 36.8 C Pulse Rate 85 89 86 Respiratory 18 22 20 Rate Blood Pressure 135/99 129/80 (mmHg) O2 Sat by Pulse 98 97 99 Oximetry 06/27/18 06/27/18 06/27/18 01:00 01:01 01:31 Temperature Pulse Rate 80 84 78 Respiratory 19 14 20 Rate Blood Pressure 119/77 129/75 (mmHg) O2 Sat by Pulse 99 98 94 Oximetry Oxygen Devices in Use Now: None Appearance: alert, no distress Eyes: No Scleral Icterus Ears/Nose/Mouth/Throat: NL Teeth, Lips, Gums Neck: NL Appearance and Movements; NL JVP Respiratory: Symmetrical Chest Expansion and Respiratory Effort, Clear to Auscultation Cardiovascular: NL Sounds; No Murmurs; No JVD, RRR Abdominal: NL Sounds; No Tenderness; No Distention, No Hepatosplenomegaly Lymphatic: No Cervical Adenopathy Extremities: No Edema Skin: No Rash or Ulcers Neurological: - - DTRs 1+/symmetric, bilateral nystagmus, motor 4/5 LE bilat, alert, not oriented to date Lines/Tubes/Other Access: Clean, Dry and Intact Peripheral IV Nutrition: Taking PO's Result Diagrams: 06/27/18 01:18 06/27/18 01:18 Additional Lab and Data: Laboratory Tests 06/27/18 06/27/18 06/27/18 01:18 01:18 01:18 INR (Anticoag Therapy) 1.02 APTT 24.1 L Lactic Acid 1.8 Calcium 9.9 AST 19 ALT 23 Alkaline Phosphatase 150 H Troponin I 0.00 Albumin 4.1 Triglycerides 96 Cholesterol 152 LDL Cholesterol 73 HDL Cholesterol 59.7 EKG Data: EKG; NSR, normal axis, diffuse T-wave flattening Assess/Plan/Problems-Billing Assessment: 48 year old woman with MS, now presenting with new onset of seizure. - Patient Problems (1) Seizure Current Visit: Yes Status: Acute Priority: High Code(s): R56.9 - UNSPECIFIED CONVULSIONS SNOMED Code(s): 13168614 Comment: New onset seizure may be due to progressing/scarring from MS, vs medication side effect. Patient on multiple medications that can cause seizures , including lithium, oxybutynin, and Viibryd. Will have MRI when available to rule out neoplasm. Neurology consult will be arranged in AM. (2) Multiple sclerosis Current Visit: No Status: Chronic Priority: Medium Code(s): G35 - MULTIPLE SCLEROSIS SNOMED Code(s): 51793376 Comment: No current exacerbation apparent. Management deferred to neurology. (3) DVT prophylaxis Current Visit: No Status: Acute Priority: Medium Code(s): BFP7457 - SNOMED Code(s): 934920739 Comment: - high risk due to h/o DVT. Will have Lovenox SC daily (4) Hypothyroidism Current Visit: No Status: Chronic Code(s): E03.9 - HYPOTHYROIDISM, UNSPECIFIED SNOMED Code(s): 22141591 Comment: - will check TSH - Continue levothyroxine Status and Disposition: Requires inpatient stay for neurology assessment.
[2018-06-27] MEDS: Enoxaparin(*) 40 MG/0.4 ML SYR SUBCUT SCH (05:55)
[2018-06-27] MEDS: NS 0.9% 1000 ML* 1,000 ML IV SCH ×2 (05:55→16:02)
[2018-06-27] MEDS ORDERED: Levothyroxine TAB* 75 MCG TAB PO SCH (06:00)
[2018-06-27 06:38] LABS: Urine Appearance Cloudy; Urine Bacteria Absent (Absent); Urine Bilirubin Negative (Negative); Urine Blood Negative (Negative); Urine Color Yellow; Urine Glucose Negative (Negative); Urine Ketones Negative (Negative); Urine Nitrite Negative (Negative); Urine Protein Negative (Negative); Urine Red Blood Cell Trace(0-2/hpf) (Absent); Urine Specific Gravity 1.011 (1.010-1.030); Urine Urobilinogen Negative (Negative); Urine White Blood Cell 2+(11-20/hpf) (Absent)
[2018-06-27 07:09] LABS: TSH (Thyroid Stimulating Horm) 0.14 mcIU/mL (0.34-5.60)
[2018-06-27] MEDS: BREXPIPRAZOLE 1 MG PO SCH (08:53)
[2018-06-27] MEDS: PTO: Linaclotide (NF) 290 MCG CAP PO SCH (08:53)
[2018-06-27] MEDS ORDERED: Amantadine CAP* 100 MG PO SCH (09:00)
[2018-06-27] MEDS: Methylphenidate ER TAB* 18 MG PO SCH (09:09)
[2018-06-27] MEDS: Omeprazole CAP (NF) 20 MG CAP.DR PO SCH (09:09)
[2018-06-27] MEDS: CMCS:Vilazodone (NF) 40 MG TAB PO SCH (09:10)
[2018-06-27] MEDS: Oxybutynin TAB* 5 MG PO SCH ×2 (09:10→18:11)
[2018-06-27] MEDS: Potassium Chlor TAB* 10 MEQ TAB.ER PO SCH (09:10)
[2018-06-27] MEDS: Baclofen TAB* 10 MG PO SCH ×2 (09:10→21:50)
--- NOTE | 2018-06-27 09:26 | PN ---
Subjective Date of Service: 06/27/18 Interval History: Admitted overnight for new onset seizures. since admission no further seizures. 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, no alcohol, no drug use Past Medical History: Findings - PMH MS, optic neuritis, depression, asthma, migraines, urinary incontinence, h/o LT femoral DVT, h/o myositis hip/jaw Objective Active Medications: Acetaminophen (Tylenol Tab*) 650 mg PO Q4H PRN PRN Reason: FEVER/PAIN Amantadine HCl (Symmetrel Cap*) 100 mg PO BID [facility] Last Admin: 06/27/18 09:10 Dose: 100 mg Baclofen (Lioresal Tab*) 15 mg PO BID [facility] Last Admin: 06/27/18 09:10 Dose: 15 mg Brexpiprazole (Rexulti) 1 mg PO DAILY [facility] Last Admin: 06/27/18 08:53 Dose: Not Given Enoxaparin Sodium (Lovenox(*)) 40 mg SUBCUT Q24H [facility] Last Admin: 06/27/18 05:55 Dose: 40 mg Sodium Chloride (Ns 0.9% 1000 Ml*) 1,000 mls @ 100 mls/hr IV PER RATE [facility] Last Admin: 06/27/18 05:55 Dose: 100 mls/hr Levothyroxine Sodium (Synthroid Tab*) 50 mcg PO DAILY@0600 [facility] Linaclotide (Linzess (Nf)) 290 mcg PO DAILY [facility] Last Admin: 06/27/18 08:53 Dose: Not Given [place] Carbonate ([place] Carbonate Er Tab*) 900 mg PO BEDTIME [facility]; Protocol Methylphenidate HCl (Concerta Er Tab*) 36 mg PO DAILY [facility] Last Admin: 06/27/18 09:09 Dose: 36 mg Omeprazole (Prilosec Cap*) 20 mg PO DAILY@0730 [facility] Last Admin: 06/27/18 09:09 Dose: 20 mg Ondansetron HCl (Zofran Tab*) 4 mg PO Q6H PRN PRN Reason: NAUSEA Oxybutynin Chloride (Ditropan Tab*) 5 mg PO QAM [facility] Last Admin: 06/27/18 09:10 Dose: 5 mg Oxybutynin Chloride (Ditropan Tab*) 10 mg PO QPM [facility] Polyethylene Glycol/Electrolytes (Miralax*) 17 gm PO DAILY PRN PRN Reason: CONSTIPATION Potassium Chloride (Klor Con Er Tab*) 10 meq PO DAILY [facility] Last Admin: 06/27/18 09:10 Dose: 10 meq Prochlorperazine (Compazine Tab*) 5 mg PO Q6H PRN PRN Reason: NAUSEA Vilazodone HCl (Viibryd (Nf)) 40 mg PO DAILY [facility] Last Admin: 06/27/18 09:10 Dose: 40 mg Vital Signs - 8 hr 06/27/18 06/27/18 06/27/18 01:31 02:00 02:01 Temperature Pulse Rate 78 74 75 Respiratory 20 24 15 Rate Blood Pressure 129/75 133/67 (mmHg) O2 Sat by Pulse 94 96 100 Oximetry 06/27/18 06/27/18 06/27/18 02:31 03:00 03:01 Temperature Pulse Rate 75 78 76 Respiratory 21 24 19 Rate Blood Pressure 129/72 121/77 (mmHg) O2 Sat by Pulse 100 99 99 Oximetry 06/27/18 06/27/18 06/27/18 03:31 04:00 04:01 Temperature Pulse Rate 77 82 79 Respiratory 18 19 21 Rate Blood Pressure 125/72 105/62 (mmHg) O2 Sat by Pulse 99 99 98 Oximetry 06/27/18 06/27/18 06/27/18 04:31 04:51 05:25 Temperature 99.5 F 98.9 F Pulse Rate 85 85 72 Respiratory 24 21 19 Rate Blood Pressure 112/55 112/55 128/62 (mmHg) O2 Sat by Pulse 99 98 98 Oximetry 06/27/18 06/27/18 06/27/18 05:26 08:00 08:26 Temperature 98.6 F Pulse Rate 77 Respiratory 19 16 16 Rate Blood Pressure 98/56 (mmHg) O2 Sat by Pulse 94 Oximetry 06/27/18 08:56 Temperature Pulse Rate Respiratory 18 Rate Blood Pressure (mmHg) O2 Sat by Pulse Oximetry Oxygen Devices in Use Now: None Appearance: Lying in bed, no distress Ears/Nose/Mouth/Throat: Mucous Membranes Moist Respiratory: Clear to Auscultation Cardiovascular: RRR Abdominal: NL Sounds; No Tenderness; No Distention Neurological: Alert and Oriented x 3 Result Diagrams: 06/27/18 01:18 01/06/19 01:18 Additional Lab and Data: Laboratory Tests 06/27/18 06/27/18 06/27/18 01:18 01:18 01:18 INR (Anticoag Therapy) 1.02 APTT 24.1 L Lactic Acid 1.8 Calcium 9.9 AST 19 ALT 23 Alkaline Phosphatase 150 H Troponin I 0.00 Albumin 4.1 Triglycerides 96 Cholesterol 152 LDL Cholesterol 73 HDL Cholesterol 59.7 EKG Data: EKG; NSR, normal axis, diffuse T-wave flattening Assess/Plan/Problems-Billing Assessment: 48 year old woman with MS, now presenting with new onset of seizure. - Patient Problems (1) Seizure Current Visit: Yes Status: Acute Priority: High Code(s): R56.9 - UNSPECIFIED CONVULSIONS SNOMED Code(s): 23701462 Comment: New onset seizure may be due to progressing/scarring from MS, vs medication side effect. Patient on multiple medications that can cause seizures , including lithium, oxybutynin, and Viibryd. Neurology consulted. EEG pending, MRI w/w/o pending. (2) Multiple sclerosis Current Visit: No Status: Chronic Code(s): G35 - MULTIPLE SCLEROSIS SNOMED Code(s): 59144138 Comment: No current exacerbation apparent. Management deferred to neurology. (3) Hypothyroidism Current Visit: No Status: Chronic Code(s): E03.9 - HYPOTHYROIDISM, UNSPECIFIED SNOMED Code(s): 75461118 Comment: TSH is low, will decrease levothyroxine from 75mcg to 50mcg, will require repeat TSH as outpatient in 4-6 weeks. (4) DVT prophylaxis Current Visit: No Status: Acute Priority: Medium Code(s): ZWV9194 - SNOMED Code(s): 899484172 Comment: - high risk due to h/o DVT. Will have Lovenox SC daily (5) DNR (do not resuscitate) Current Visit: No Status: Acute (6) Psychiatric diagnosis Current Visit: Yes Status: Acute Code(s): F99 - MENTAL DISORDER, NOT OTHERWISE SPECIFIED SNOMED Code(s): 15056149 Comment: Has mental illness, continue home medications. Status and Disposition: Requires inpatient stay for neurology assessment.
--- NOTE | 2018-06-27 14:16 | CONS ---
CC: Dr. Tim Lara; Dr. Chiki Chandler CONSULTATION REPORT: DATE OF CONSULT: 06/27/18 HISTORY OF PRESENT ILLNESS: Karla Cisneros is a 48-year-old woman with a history of multiple sclerosis, currently on Cytoxan as an outpatient, following with Dr. Lara, who was admitted after a witnessed event most consistent with seizure. She was noted by her son who was visiting her to have a vocalization in the middle of the night followed by a tonic clonic seizure with right arm outstretched. She was brought into the emergency room, and had confusion noted in the ER; she does not remember anything other than waking up in the hospital. She denies any recent illnesses, new change to her medications. She denies any previous history of seizures. She denies chuy vu, waking up having bit her tongue or any trauma to herself or disturbance to her sleep environment. She denies any seizure in her childhood. PAST MEDICAL HISTORY: Includes multiple sclerosis; migraines; depression and posttraumatic stress disorder; asthma; left femoral DVT and PE, now off anticoagulation; sleep apnea, on CPAP which has helped with her overall energy and mood. CURRENT MEDICATIONS: Include: 1. Acetaminophen 650 mg p.o. q.4 hours p.r.n. fever and pain. 2. Acetaminophen 325 mg p.o. q.6 hours p.r.n. pain or temperature. 3. Amantadine 100 mg p.o. b.i.d. 4. Baclofen 15 mg p.o. b.i.d. 5. Rexulti 1 mg p.o. daily. 6. Enoxaparin 40 mg subcutaneous q.24 hours. 7. Levothyroxine 50 mcg p.o. daily. 8. Linzess 290 mcg p.o. daily. 9. [place] 900 mg p.o. q.h.s. 10. Methylphenidate 36 mg p.o. daily. 11. Omeprazole 20 mg p.o. daily. 12. Zofran 4 mg p.o. q.6 hours p.r.n. nausea. 13. Ditropan 5 mg q.a.m. 14. Oxybutynin 10 mg p.o. q.p.m. 15. Polyethylene glycol 17 g p.o. daily p.r.n. constipation. 16. Klor-Con extended release 10 mg p.o. daily. 17. Compazine 5 mg p.o. q.6 hours p.r.n. nausea. 18. Sodium chloride 100 mL an hour. 19. Viibryd 40 mg p.o. daily. ALLERGIES: Include PENICILLIN which made her "violently ill," CODEINE which she avoids because she is 'recovering addict', BETASERON caused depression and suicidal ideation, COPAXONE caused injection site reaction. She lists SULFA DRUGS as an allergy as everyone in her family has had an allergy to SULFA DRUGS , ASPIRIN caused her to be nauseated and she is allergic to ONION, CITRUS AND BEE STINGS. FAMILY HISTORY: Includes mother who at 60 with diabetes and myocardial infarction; father with hypertension, hyperlipidemia, heart disease, spina bifida; brother who of an overdose; son who is 11 years old. SOCIAL HISTORY: Karla lives by herself. She has an 11-year-old son. She is disabled. 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 She has aides with her every day. She does not drink alcohol, and it has been years since she drank alcohol and notes that she is a recovering alcoholic. There was also previous prescription drug use. She denies any recent drug use. She denies any smoking. PHYSICAL EXAM: On examination, her most recent temperature was 98.6 degrees Fahrenheit, her heart rate was 77 respiratory rate was 18, saturation was 94%, blood pressure was 98.56. She had a regular cardiac rhythm. Her lungs were clear to auscultation. She did have some peripheral edema with sock lines and sweat pant lines. Her peripheral pulses were intact in the posterior tibialis and dorsalis pedis. Tattoos were noted. She was awake but tired appearing. She was aware she was in hospital. She had no idea how she got here. She had normal language function. Her pupils were equal and responsive to light. She had full extraocular movements; however, on end gaze laterally, there was some difficulty sustaining full end gaze, both left and right with nystagmus. On vertical gaze, there was some ocular bobbing. She had full bliss to confrontation. Her facial expression, sensation and hearing were equal. Palate was upgoing. Tongue was midline. Sternocleidomastoid and trapezius were 5/5 in strength. There was a left pronator drift. She gave good resistance in her right arm; in her left arm in the deltoid, biceps, triceps and intrinsic hand muscles is 4+/5. In her lower extremities, she could slightly lift her knee off the bed bilaterally. When holding up her leg and asking her to extend at the knee, she could do some movement antigravity but not fully extend each leg. Her foot dorsiflexion and EHL were strong, vibration sensation was decreased at the right large toe by 20 seconds, ankle by 5 seconds, left large toe by 25 seconds, ankle by 10 seconds. She felt there was decreased light touch on her left arm and leg, decreased cool on her left leg, and sharp appeared to be symmetric. Reflexes were 2+ and symmetric with the exception of the knees that were hard to obtain, toes were upgoing bilaterally. Gait was not tested as at her baseline, she uses a wheelchair. DIAGNOSTIC STUDIES/LAB DATA: CBC with a white blood cell count upper normal limit at 10.3 with 8.4 absolute neutrophils. Her INR was normal, PTT was slightly low. Her metabolic panel showed a glucose at 111, her alk phos was 150. Total creatine kinase was 26. Her troponin was 0. Total protein and albumin were normal. Her lipid profile showed a total cholesterol of 152 with LDL of 73. Her TSH was 0.14. Her urinalysis did show 1+ esterase, 2+ white blood cells with present squamous epithelial cells, culture is pending. Her lithium level was 1.13. Admission note from Dr. Corea was reviewed. She had a chest x-ray performed on admission which did not note any acute cardiopulmonary abnormality and her CT of the brain on admission showed no acute changes; however, there was note of periventricular white matter disease and mild stable ventriculomegaly. This film was reviewed directly. IMPRESSION: A 48-year-old woman with a history of multiple sclerosis, currently on Cytoxan, followed by Dr. King bravo and the [facility] in subspecialty consultation, now in the setting of history of posttraumatic stress disorder and depression, on multiple medications and a history of sleep apnea, on CPAP, now admitted with new onset seizure. There is no previous history of epilepsy. She is at risk for seizure in the setting of multiple sclerosis and previous multiple sclerosis lesions. This most likely represents localization related seizure. No new medications were identified that would lower seizure threshold; however, she is on multiple chronic medications that could lower seizure threshold including baclofen, amantadine, Rexulti, [place], methylphenidate, Viibryd. These medications are however needed for her spasticity, her multiple sclerosis symptoms and her mood. Her mood has been improving with CPAP and perhaps simplification could be considered. Her energy is also improving with CPAP and perhaps amantadine could be tapered. It is also possible she could have an infection which lowered seizure threshold. No history of infection was obtained. Urine culture is pending. Her high normal white count also could be secondary to seizure. We will check an EEG for underlying epileptiform activity. We will have further discussion regarding antiepileptic medication accordingly. Seizure can also be the presentation of a new multiple sclerosis lesion. Accordingly, we will proceed with MRI of the brain with and without contrast. Karla Cisneros lives on her own with aides. We will need to make sure safety upon discharge. TIME SPENT: Over an hour was spent in direct patient care in addition to review of outpatient chart. [id number]/[facility] #: [id number] [facility]ITAL[facility]
--- NOTE | 2018-06-27 16:40 | PN ---
Progress Note - Progress Note Date of Service: 06/27/18 Note: Intermittent slowing on EEG. No focal changes. Plan: Will repeat EEG tomorrow MRI Brain with danyell pending Start simplifying medications that reduce seizure threshold by decreasing amantadine to 1 tablet a day Discussed potential treatment for seizure. Keppra has less drug interaction, but potential for depression, paranoia which is already a problem. Lamotrigine may be a good choice, however will take time to taper. She is in significant pain. She takes oxycodone on occasion at home. Called Tim and confirmed 10mg dose given in November; previously 5mg dose. Patient thought she was getting 15mg. She is still slightly confused, however better than this morning. She could not remember how to get to her med list on her phone. This should be re- reviewed tomorrow. Was on clear liquid diet. Patient is hungry. Ok to advance. Another 25 minutes spent in patient care. All questions answered.
[2018-06-27] MEDS ORDERED: oxyCODONE TAB* 5 MG TAB PO PRN (18:01)
[2018-06-27] MEDS: oxyCODONE TAB* 5 MG TAB PO PRN (18:10)
[2018-06-27] MEDS: oxyCODONE/Acetamin 5/325 MG* TAB PO PRN (18:10)
[2018-06-27] MEDS ORDERED: LORazepam TAB(*) 1 MG PO ONE (18:32)
--- NOTE | 2018-06-27 18:37 | PN ---
Progress Note - Progress Note Date of Service: 06/27/18 Note: Called to bedside for spontaneous eye movements in primary gaze. Resolved when I was at bedside. She still felt as if writing on white board was moving. Does have abnormal eye movements at baseline with nystagmus on lateral gaze and incomplete movement laterally, as well as ocular bobbing on vertical gaze. Facial expression was symmetric. No dysarthria. Still confused about how to find her med list on her phone. Has been eating solids without difficulty No other activity noted to suggest seizure activity. I/P: Spontaneous eye movement of unclear etiology. Provide Ativan 1mg now. Will start on Keppra 500mg po bid now. Patient aware of potential psychiatric side effect. If mental status changes, will switch to IV.
[2018-06-27] MEDS: levETIRAcetam TAB* 500 MG PO SCH (19:05)
[2018-06-27] MEDS: Lithium Carbonate ER* 450 MG TAB.ER PO SCH (21:49)
[2018-06-27] MEDS: Docusate CAP* 100 MG PO SCH (21:50)
--- NOTE | 2018-06-28 00:07 | EEG ---
ELECTROENCEPHALOGRAPHY: DATE OF RECORDIN06/27/18 - ROOM #351 CLINICAL PROBLEM: Karla Cisneros is a 48-year-old woman with a history of multiple sclerosis who was admitted after an episode of observed generalized tonic-clonic activity followed by confusion. MEDICATIONS: She is on multiple medications includin. Oxybutynin. 2. Amantadine. 3. Baclofen. 4. [place]. 5. Enoxaparin. 6. Levothyroxine. 7. Omeprazole. 8. Linzess. 9. Brexpiprazole. 10. Methylphenidate. 11. Potassium. 12. Viibryd. 13. Tylenol. History of Ampyra use was noted after this recording. REPORT: This was a 16-channel EEG. In the beginning of the record, there was posterior-dominant 9 to 10 Hz alpha rhythm which was symmetric. As the record continued, there was intermittent slowing of the background rhythm in the theta range bilaterally with sharply contoured theta. There was no clear asymmetry of the background rhythm. There was no evidence of sharp or spike-wave activity. CLINICAL IMPRESSION: This was an abnormal awake EEG. There was intermittent bilateral theta waves and sharply-contoured theta and during the recording. [id number]/[facility] #: [id number] [facility]
[2018-06-28] MEDS: NS 0.9% 1000 ML* 1,000 ML IV SCH ×2 (02:35→12:40)
[2018-06-28] MEDS: Enoxaparin(*) 40 MG/0.4 ML SYR SUBCUT SCH (05:37)
[2018-06-28] MEDS: Levothyroxine TAB* 50 MCG TAB PO SCH (05:37)
--- NOTE | 2018-06-28 08:34 | PN ---
Subjective Date of Service: 06/28/18 Interval History: Yesterday evening was having abnormal eye movements, was reevaulated by neurology, received IV ativan and has been started on PO keppra. This morning, no headache, no further seizure episodes, No fever, no chills. 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, , non-smoker, no alcohol, no drug use Past Medical History: Findings - PMH MS, optic neuritis, depression, asthma, migraines, urinary incontinence, h/o LT femoral DVT, h/o myositis hip/jaw Objective Active Medications: Acetaminophen (Tylenol Tab*) 650 mg PO Q4H PRN PRN Reason: FEVER/PAIN Last Admin: 06/27/18 14:34 Dose: 650 mg Acetaminophen (Tylenol Tab*) 325 mg PO Q6H PRN PRN Reason: PAIN OR TEMPERATURE Amantadine HCl (Symmetrel Cap*) 100 mg PO DAILY [facility] Baclofen (Lioresal Tab*) 15 mg PO BID [facility] Last Admin: 06/27/18 21:50 Dose: 15 mg Brexpiprazole (Rexulti) 1 mg PO DAILY [facility] Last Admin: 06/27/18 08:53 Dose: Not Given Docusate Sodium (Colace Cap*) 100 mg PO BID [facility] Last Admin: 06/27/18 21:50 Dose: 100 mg Enoxaparin Sodium (Lovenox(*)) 40 mg SUBCUT Q24H [facility] Last Admin: 06/28/18 05:37 Dose: 40 mg Sodium Chloride (Ns 0.9% 1000 Ml*) 1,000 mls @ 100 mls/hr IV PER RATE [facility] Last Admin: 06/28/18 02:35 Dose: 100 mls/hr Levetiracetam (Keppra Tab*) 500 mg PO BID [facility] Last Admin: 06/27/18 19:05 Dose: 500 mg Levothyroxine Sodium (Synthroid Tab*) 50 mcg PO DAILY@0600 [facility] Last Admin: 06/28/18 05:37 Dose: 50 mcg Linaclotide (Linzess (Nf)) 290 mcg PO DAILY [facility] Last Admin: 06/27/18 08:53 Dose: Not Given [place] Carbonate ([place] Carbonate Er Tab*) 900 mg PO BEDTIME [facility]; Protocol Last Admin: 06/27/18 21:49 Dose: 900 mg Magnesium Oxide (Magox 400 Tab*) 800 mg PO DAILY [facility] Methylphenidate HCl (Concerta Er Tab*) 36 mg PO DAILY [facility] Last Admin: 06/27/18 09:09 Dose: 36 mg Omeprazole (Prilosec Cap*) 20 mg PO DAILY@0730 [facility] Last Admin: 06/27/18 09:09 Dose: 20 mg Ondansetron HCl (Zofran Tab*) 4 mg PO Q6H PRN PRN Reason: NAUSEA Oxybutynin Chloride (Ditropan Tab*) 5 mg PO QAM [facility] Last Admin: 06/27/18 09:10 Dose: 5 mg Oxybutynin Chloride (Ditropan Tab*) 10 mg PO QPM [facility] Last Admin: 06/27/18 18:11 Dose: 10 mg Oxycodone HCl (Roxycodone Tab*) 5 mg PO Q6H PRN PRN Reason: . Last Admin: 06/27/18 18:10 Dose: 5 mg Oxycodone/Acetaminophen (Percocet 5/325 Tab*) 1 tab PO Q6H PRN PRN Reason: PAIN Last Admin: 06/27/18 18:10 Dose: 1 tab Potassium Chloride (Klor Con Er Tab*) 10 meq PO DAILY [facility] Last Admin: 06/27/18 09:10 Dose: 10 meq Prochlorperazine (Compazine Tab*) 5 mg PO Q6H PRN PRN Reason: NAUSEA Vilazodone HCl (Viibryd (Nf)) 40 mg PO DAILY [facility] Last Admin: 06/27/18 09:10 Dose: 40 mg Vital Signs - 8 hr 06/28/18 06/28/18 06/28/18 00:37 04:24 07:45 Temperature 98.3 F 98.4 F 98.5 F Pulse Rate 93 73 83 Respiratory 16 18 17 Rate Blood Pressure 102/55 100/62 109/60 (mmHg) O2 Sat by Pulse 95 97 Oximetry Oxygen Devices in Use Now: None Appearance: Lying in bed, not in distress Eyes: PERRLA, - - No nystagmus Respiratory: Clear to Auscultation Cardiovascular: NL Sounds; No Murmurs; No JVD, RRR Abdominal: NL Sounds; No Tenderness; No Distention Skin: No Rash or Ulcers Neurological: Alert and Oriented x 3 Result Diagrams: 06/27/18 01:18 06/27/18 01:18 Additional Lab and Data: Laboratory Tests 06/27/18 06/27/18 06/27/18 01:18 01:18 01:18 INR (Anticoag Therapy) 1.02 APTT 24.1 L Lactic Acid 1.8 Calcium 9.9 AST 19 ALT 23 Alkaline Phosphatase 150 H Troponin I 0.00 Albumin 4.1 Triglycerides 96 Cholesterol 152 LDL Cholesterol 73 HDL Cholesterol 59.7 EKG Data: EKG; NSR, normal axis, diffuse T-wave flattening Assess/Plan/Problems-Billing Assessment: 48 year old woman with MS, now presenting with new onset of seizure. - Patient Problems (1) Seizure Current Visit: Yes Status: Acute Priority: High Code(s): R56.9 - UNSPECIFIED CONVULSIONS SNOMED Code(s): 89357214 Comment: New onset seizure may be due to progressing/scarring from MS, vs medication side effect. Patient on multiple medications that can cause seizures , including lithium, oxybutynin, and Viibryd. Neurology consulted. Abnormal EEG. started on Keppra. (2) Multiple sclerosis Current Visit: No Status: Chronic Code(s): G35 - MULTIPLE SCLEROSIS SNOMED Code(s): 27309328 Comment: No current exacerbation apparent. Management deferred to neurology. (3) Hypothyroidism Current Visit: No Status: Chronic Code(s): E03.9 - HYPOTHYROIDISM, UNSPECIFIED SNOMED Code(s): 43352087 Comment: Due to TSH being low, we decreased her levothyroxine to 50 mcg ( home dose was 75mcg) will require repeat TSH as outpatient in 4-6 weeks. (4) DVT prophylaxis Current Visit: No Status: Acute Priority: Medium Code(s): QTP9403 - SNOMED Code(s): 912746033 Comment: - high risk due to h/o DVT. Will have Lovenox SC daily (5) DNR (do not resuscitate) Current Visit: No Status: Acute (6) Psychiatric diagnosis Current Visit: Yes Status: Acute Code(s): F99 - MENTAL DISORDER, NOT OTHERWISE SPECIFIED SNOMED Code(s): 00066308 Comment: Has mental illness, continue home medications. Status and Disposition: Requires inpatient stay for neurology assessment.
[2018-06-28] MEDS: Methylphenidate ER TAB* 18 MG PO SCH (09:58)
[2018-06-28] MEDS: Potassium Chlor TAB* 10 MEQ TAB.ER PO SCH (09:58)
[2018-06-28] MEDS: Magnesium Oxide TAB* 400 MG PO SCH (09:59)
[2018-06-28] MEDS: levETIRAcetam TAB* 500 MG PO SCH ×2 (09:59→20:25)
[2018-06-28] MEDS: Amantadine CAP* 100 MG PO SCH (09:59)
[2018-06-28] MEDS: Docusate CAP* 100 MG PO SCH ×2 (10:00→20:25)
[2018-06-28] MEDS: Oxybutynin TAB* 5 MG PO SCH ×2 (10:00→18:43)
[2018-06-28] MEDS: Omeprazole CAP (NF) 20 MG CAP.DR PO SCH (10:01)
[2018-06-28] MEDS: Baclofen TAB* 10 MG PO SCH ×2 (10:01→20:24)
[2018-06-28] MEDS: PTO: Linaclotide (NF) 290 MCG CAP PO SCH (10:02)
[2018-06-28] MEDS: BREXPIPRAZOLE 1 MG PO SCH (10:03)
[2018-06-28] MEDS: CMCS:Vilazodone (NF) 40 MG TAB PO SCH (10:03)
[2018-06-28] MEDS: oxyCODONE/Acetamin 5/325 MG* TAB PO PRN (13:12)
[2018-06-28] MEDS ORDERED: Gadoteridol* (CONTRAST) 279.3 MG/ML 10 ML IV ONE (17:35)
--- NOTE | 2018-06-28 19:52 | PN ---
Subjective Date of Service: 06/28/18 Length of Stay: 1 Days Neurology is following Ms. Cisneros for the evaluation and management of seizures. Interval History: To recap the medical history, Ms. Cisneros is a 48-year-old female with history of multiple sclerosis followed by Dr. Lara who is on [place] for bipolar disorder, Viibryd for depression, and was started on Ampyra to improve her gait. The patient presented to [facility] with new onset seizures that's likely related to multiple sclerosis and lowered the seizure threshold due to Ampyra. Her son described her having vocalization in the middle of the night followed by a tonic -clonic seizure with right arm outstretched. The patient stated that she continues to feel "fogginess" and has trouble with memory overnight. 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 She has bilateral CYNDY. There has been no reported seizure activity overnight. She denied headaches, visual disturbance, or swallowing difficulties. Review of Systems: Denied CP, SOB, or palpitations. 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, no drug use Past Medical History: Findings - PMH MS, optic neuritis, depression, asthma, migraines, urinary incontinence, h/o LT femoral DVT, h/o myositis hip/jaw Objective Active Medications: Acetaminophen (Tylenol Tab*) 650 mg PO Q4H PRN PRN Reason: FEVER/PAIN Last Admin: 06/27/18 14:34 Dose: 650 mg Acetaminophen (Tylenol Tab*) 325 mg PO Q6H PRN PRN Reason: PAIN OR TEMPERATURE Amantadine HCl (Symmetrel Cap*) 100 mg PO DAILY [facility] Last Admin: 06/28/18 09:59 Dose: 100 mg Baclofen (Lioresal Tab*) 15 mg PO BID [facility] Last Admin: 06/28/18 10:01 Dose: 15 mg Brexpiprazole (Rexulti) 1 mg PO DAILY [facility] Last Admin: 06/28/18 10:03 Dose: Not Given Docusate Sodium (Colace Cap*) 100 mg PO BID [facility] Last Admin: 06/28/18 10:00 Dose: 100 mg Enoxaparin Sodium (Lovenox(*)) 40 mg SUBCUT Q24H [facility] Last Admin: 06/28/18 05:37 Dose: 40 mg Sodium Chloride (Ns 0.9% 1000 Ml*) 1,000 mls @ 100 mls/hr IV PER RATE [facility] Last Admin: 06/28/18 12:40 Dose: 100 mls/hr Levetiracetam (Keppra Tab*) 500 mg PO BID [facility] Last Admin: 06/28/18 09:59 Dose: 500 mg Levothyroxine Sodium (Synthroid Tab*) 50 mcg PO DAILY@0600 [facility] Last Admin: 06/28/18 05:37 Dose: 50 mcg Linaclotide (Linzess (Nf)) 290 mcg PO DAILY [facility] Last Admin: 06/28/18 10:02 Dose: Not Given [place] Carbonate ([place] Carbonate Er Tab*) 900 mg PO BEDTIME [facility]; Protocol Last Admin: 06/27/18 21:49 Dose: 900 mg Magnesium Oxide (Magox 400 Tab*) 800 mg PO DAILY [facility] Last Admin: 06/28/18 09:59 Dose: 800 mg Methylphenidate HCl (Concerta Er Tab*) 36 mg PO DAILY [facility] Last Admin: 06/28/18 09:58 Dose: 36 mg Omeprazole (Prilosec Cap*) 20 mg PO DAILY@0730 [facility] Last Admin: 06/28/18 10:01 Dose: 20 mg Ondansetron HCl (Zofran Tab*) 4 mg PO Q6H PRN PRN Reason: NAUSEA Oxybutynin Chloride (Ditropan Tab*) 5 mg PO QAM [facility] Last Admin: 06/28/18 10:00 Dose: 5 mg Oxybutynin Chloride (Ditropan Tab*) 10 mg PO QPM [facility] Last Admin: 06/28/18 18:43 Dose: 10 mg Oxycodone HCl (Roxycodone Tab*) 5 mg PO Q6H PRN PRN Reason: . Last Admin: 06/27/18 18:10 Dose: 5 mg Oxycodone/Acetaminophen (Percocet 5/325 Tab*) 1 tab PO Q6H PRN PRN Reason: PAIN Last Admin: 06/28/18 13:12 Dose: 1 tab Potassium Chloride (Klor Con Er Tab*) 10 meq PO DAILY [facility] Last Admin: 06/28/18 09:58 Dose: 10 meq Prochlorperazine (Compazine Tab*) 5 mg PO Q6H PRN PRN Reason: NAUSEA Vilazodone HCl (Viibryd (Nf)) 40 mg PO DAILY [facility] Last Admin: 06/28/18 10:03 Dose: 40 mg Vital Signs 06/27/18 06/27/18 06/27/18 20:57 21:40 21:52 Temperature 98.4 F Pulse Rate 82 Respiratory 16 17 17 Rate Blood Pressure 107/55 (mmHg) O2 Sat by Pulse 95 95 Oximetry 06/28/18 06/28/18 06/28/18 00:37 04:24 07:45 Temperature 98.3 F 98.4 F 98.5 F Pulse Rate 93 73 83 Respiratory 16 18 17 Rate Blood Pressure 102/55 100/62 109/60 (mmHg) O2 Sat by Pulse 95 97 Oximetry 06/28/18 06/28/18 06/28/18 08:00 11:07 13:12 Temperature 98.4 F Pulse Rate 87 Respiratory 17 16 18 Rate Blood Pressure 108/65 (mmHg) O2 Sat by Pulse 100 Oximetry 06/28/18 19:41 Temperature 98.3 F Pulse Rate 94 Respiratory 16 Rate Blood Pressure 119/66 (mmHg) O2 Sat by Pulse 100 Oximetry Intake and Output Last 24 Hours 06/26/18 06/27/18 06/28/18 06/29/18 06:59 06:59 06:59 06:59 Intake Total 1100 1390 2610 Output Total 686 865 1060 Balance 1000 1040 1410 Weight 165 lb Intake: IV Fluids 0497 648 4325 LR 980 NS (0.9%) 1970 Oral 100 410 640 Output: Urine 467 576 7439 Other: Estimated Void Large Large # Voids 1 1 Oxygen Devices in Use Now: None Neurology Exam: General: Well nourished female in no acute distress HEENT: Normocephalic/atraumatic, sclera anicteric, mucous membranes moist Neck: Supple Chest: Clear to auscultation bilaterally Cardiovascular: Regular rate and rhythm without murmurs, rubs, gallops Extremities: No clubbing, cyanosis, or edema Skin: tattoos were noted. Neurological Findings: Awake, Alert, Oriented x3 Speech: mild dysarthria. Cranial Nerve: PERRL, she has bilateral CYNDY. No facial asymmetry or weakness. Motor: paraparesis graded as 2-3/5 throughout, with 5/5 strength in the upper extremity, 4+ in the distal hand muscles. Sensation: intact to LT/PP bilaterally upper and lower extremities Deep Tendon Reflex: 2+ symmetric in the upper/lower extremities, extensor plantar responses bilaterally. Dysmetria to finger to nose on the left. Gait: paraparetic with spasticity of the lower extremities bilaterally. Result Diagrams: 06/27/18 01:18 06/27/18 01:18 Additional Lab and Data: Laboratory Tests 06/27/18 06/27/18 06/27/18:18 01:18 01:18 INR (Anticoag Therapy) 1.02 APTT 24.1 L Lactic Acid 1.8 Calcium 9.9 AST 19 ALT 23 Alkaline Phosphatase 150 H Troponin I 0.00 Albumin 4.1 Triglycerides 96 Cholesterol 152 LDL Cholesterol 73 HDL Cholesterol 59.7 Microbiology and Other Data: Microbiology 06/27/18 06:20 Urine Culture - Final Urine No Growth (<1,000 CFU/mL) Diagnostic Imaging: MRI brain with and without contrast: diffuse white matter lesions, mostly in the subcortical and periventricular region with a lesion in the lani. No enhancing lesions. EEG from 06/28/2018: diffuse background slowing and irregulary sharp theta and delta frequencies. There were no clear epileptiform discharges or electrographic seizures. EKG Data: EKG; NSR, normal axis, diffuse T-wave flattening Assessment/Plan 1. New onset seizures in a patient with multiple sclerosis and was recently taking Ampyra. She was started on levetiracetam 500 mg PO twice daily. Continue levetiracetam. Monitor for any exacerbation of her psychiatric condition. If she still has memory problems, which can be related to a prolonged post ictal period or related to her underlying demyelinating condition, repeat an EEG tomorrow to make sure she is not having focal seizures. Discontinue Ampyra and she should not be on this medication from now on. [place] can also lower the seizure threshold. If she has recurrence of seizures , then consider switching lithium to Depakote. This can be considered as an outpatient. Recommend follow-up with Dr. Lara in 3-4 weeks. We will arrange for a follow- up. Education and counseling regarding seizures and seizure precaution/hygiene was discussed with the patient today. Neurology will continue to follow. Time spent: 25 minutes of which greater than 50% was spent reviewing the electronic medical records, obtaining history, examining the patient, and discussing the treatment plan as mentioned above.
[2018-06-28] MEDS: Lithium Carbonate ER* 450 MG TAB.ER PO SCH (20:25)
[2018-06-28] MEDS: oxyCODONE TAB* 5 MG TAB PO PRN (20:25)
[2018-06-29] MEDS: NS 0.9% 1000 ML* 1,000 ML IV SCH ×3 (02:00→21:59)
--- NOTE | 2018-06-29 02:35 | EEG ---
ELECTROENCEPHALOGRAPHY: DATE OF STUDY: 06/28/18 - ROOM #333 ORDERED BY: Dr. Mcwilliams. CLINICAL PROBLEM: The patient is a 48-year-old right-handed female, who was admitted to [facility] with symptoms of altered mental status, slurred speech, and unresponsive event. The patient was evaluated for possible stroke. The patient's son apparently witnessed tonic-clonic seizure. The patient does not recall the event. She has no history of seizures. She does have a history of multiple sclerosis and migraines. MEDICATIONS: 1. Prilosec 2. Colace. 3. Keppra. 4. Linzess. 5. Concerta. 6. [place] carbonate. 7. Lovenox. 8 Synthroid. 9. Tylenol. 10. Zofran. 11. Roxicodone. 12. Percocet. 13. Compazine. CLINICAL STATE: Waking and drowsy. REPORT: The background consisted of a mixed frequency slowing as well as beta faster frequency with areas with retained organization and discernible anterior posterior voltage gradients. There was a waking background of approximately 12 Hz, which was symmetrical and poorly sustained. Anteriorly, there was an expected pattern of lower voltage irregular mixed faster frequency. Attenuation of the occipital rhythm accompanied drowsiness. The drowsy background was disorganized with persistent sharp theta frequency and no runs of sleep spindles or vertex wave. Throughout the recording, there was diffuse, intermittent slowing, intermixed with faster 14-16 Hz beta frequency that took on a rhythmic pattern for approximately 5- 10 seconds without any clinical correlation. No photic stimulation or hyperventilation was performed. EKG showed a normal sinus rhythm with a rate of 70 beats per minute. CLINICAL IMPRESSION: This is an abnormal awake and drowsy EEG due to diffuse disorganization of the background with intermittent diffuse semi-rhythmic slowing. These findings are suggestive of a mild nonspecific abnormality with the rhythmic pattern abnormality that can be associated with chronic lithium carbonate therapy use. There were no clear electrographic seizures. Clinical correlation is recommended. [id number]/[facility] #: [id number] [facility]
[2018-06-29] MEDS: Levothyroxine TAB* 50 MCG TAB PO SCH (05:18)
[2018-06-29] MEDS: Enoxaparin(*) 40 MG/0.4 ML SYR SUBCUT SCH (05:19)
[2018-06-29] MEDS: Omeprazole CAP (NF) 20 MG CAP.DR PO SCH (08:06)
[2018-06-29] MEDS: Methylphenidate ER TAB* 18 MG PO SCH (10:02)
[2018-06-29] MEDS: BREXPIPRAZOLE 1 MG PO SCH (10:02)
[2018-06-29] MEDS: PTO: Linaclotide (NF) 290 MCG CAP PO SCH (10:02)
[2018-06-29] MEDS: CMCS:Vilazodone (NF) 40 MG TAB PO SCH (10:02)
[2018-06-29] MEDS: Magnesium Oxide TAB* 400 MG PO SCH (10:04)
[2018-06-29] MEDS: Amantadine CAP* 100 MG PO SCH (10:05)
[2018-06-29] MEDS: Baclofen TAB* 10 MG PO SCH ×2 (10:07→20:13)
[2018-06-29] MEDS: levETIRAcetam TAB* 500 MG PO SCH ×2 (10:08→20:13)
[2018-06-29] MEDS: Potassium Chlor TAB* 10 MEQ TAB.ER PO SCH (10:08)
[2018-06-29] MEDS: Docusate CAP* 100 MG PO SCH ×2 (10:08→20:13)
[2018-06-29] MEDS: Oxybutynin TAB* 5 MG PO SCH ×2 (10:08→18:05)
--- NOTE | 2018-06-29 11:13 | PN ---
Subjective Date of Service: 06/29/18 Interval History: Doing well, no seizures over past 24 hours. states that she is having some memory issues. 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, no drug use Past Medical History: Findings - PMH MS, optic neuritis, depression, asthma, migraines, urinary incontinence, h/o LT femoral DVT, h/o myositis hip/jaw Objective Active Medications: Acetaminophen (Tylenol Tab*) 650 mg PO Q4H PRN PRN Reason: FEVER/PAIN Last Admin: 06/27/18 14:34 Dose: 650 mg Acetaminophen (Tylenol Tab*) 325 mg PO Q6H PRN PRN Reason: PAIN OR TEMPERATURE Amantadine HCl (Symmetrel Cap*) 100 mg PO DAILY [facility] Last Admin: 06/29/18 10:05 Dose: 100 mg Baclofen (Lioresal Tab*) 15 mg PO BID [facility] Last Admin: 06/29/18 10:07 Dose: 15 mg Brexpiprazole (Rexulti) 1 mg PO DAILY [facility] Last Admin: 06/29/18 10:02 Dose: 1 mg Docusate Sodium (Colace Cap*) 100 mg PO BID [facility] Last Admin: 06/29/18 10:08 Dose: 100 mg Enoxaparin Sodium (Lovenox(*)) 40 mg SUBCUT Q24H [facility] Last Admin: 06/29/18 05:19 Dose: 40 mg Sodium Chloride (Ns 0.9% 1000 Ml*) 1,000 mls @ 100 mls/hr IV PER RATE [facility] Last Admin: 06/29/18 02:00 Dose: 100 mls/hr Levetiracetam (Keppra Tab*) 500 mg PO BID [facility] Last Admin: 06/29/18 10:08 Dose: 500 mg Levothyroxine Sodium (Synthroid Tab*) 50 mcg PO DAILY@0600 [facility] Last Admin: 06/29/18 05:18 Dose: 50 mcg Linaclotide (Linzess (Nf)) 290 mcg PO DAILY [facility] Last Admin: 06/29/18 10:02 Dose: 290 mcg [place] Carbonate ([place] Carbonate Er Tab*) 900 mg PO BEDTIME [facility]; Protocol Last Admin: 06/28/18 20:25 Dose: 900 mg Magnesium Oxide (Magox 400 Tab*) 800 mg PO DAILY [facility] Last Admin: 06/29/18 10:04 Dose: 800 mg Methylphenidate HCl (Concerta Er Tab*) 36 mg PO DAILY [facility] Last Admin: 06/29/18 10:02 Dose: 36 mg Omeprazole (Prilosec Cap*) 20 mg PO DAILY@0730 [facility] Last Admin: 06/29/18 08:06 Dose: 20 mg Ondansetron HCl (Zofran Tab*) 4 mg PO Q6H PRN PRN Reason: NAUSEA Oxybutynin Chloride (Ditropan Tab*) 5 mg PO QAM [facility] Last Admin: 06/29/18 10:08 Dose: 5 mg Oxybutynin Chloride (Ditropan Tab*) 10 mg PO QPM [facility] Last Admin: 06/28/18 18:43 Dose: 10 mg Oxycodone HCl (Roxycodone Tab*) 5 mg PO Q6H PRN PRN Reason: . Last Admin: 06/28/18 20:25 Dose: 5 mg Oxycodone/Acetaminophen (Percocet 5/325 Tab*) 1 tab PO Q6H PRN PRN Reason: PAIN Last Admin: 06/28/18 13:12 Dose: 1 tab Potassium Chloride (Klor Con Er Tab*) 10 meq PO DAILY [facility] Last Admin: 06/29/18 10:08 Dose: 10 meq Prochlorperazine (Compazine Tab*) 5 mg PO Q6H PRN PRN Reason: NAUSEA Vilazodone HCl (Viibryd (Nf)) 40 mg PO DAILY [facility] Last Admin: 06/29/18 10:02 Dose: 40 mg Vital Signs - 8 hr 06/29/18 06/29/18 06/29/18 03:37 07:18 08:00 Temperature 98.8 F 98.6 F Pulse Rate 89 86 Respiratory 18 16 16 Rate Blood Pressure 123/50 111/58 (mmHg) O2 Sat by Pulse 97 98 Oximetry Oxygen Devices in Use Now: None Appearance: She is sitting on chair, not in distress. Respiratory: Clear to Auscultation Cardiovascular: RRR Neurological: Alert and Oriented x 3 Result Diagrams: 06/27/18 01:18 06/27/18 01:18 Additional Lab and Data: Laboratory Tests 06/27/18 06/27/18 06/27/18 01:18 01:18 01:18 INR (Anticoag Therapy) 1.02 APTT 24.1 L Lactic Acid 1.8 Calcium 9.9 AST 19 ALT 23 Alkaline Phosphatase 150 H Troponin I 0.00 Albumin 4.1 Triglycerides 96 Cholesterol 152 LDL Cholesterol 73 HDL Cholesterol 59.7 Microbiology and Other Data: Microbiology 06/27/18 06:20 Urine Culture - Final Urine No Growth (<1,000 CFU/mL) Diagnostic Imaging: MRI brain with and without contrast: diffuse white matter lesions, mostly in the subcortical and periventricular region with a lesion in the lani. No enhancing lesions. EEG from 06/28/2018: diffuse background slowing and irregulary sharp theta and delta frequencies. There were no clear epileptiform discharges or electrographic seizures. EKG Data: EKG; NSR, normal axis, diffuse T-wave flattening Assess/Plan/Problems-Billing 1. New onset seizures in a patient with multiple sclerosis and was recently taking Ampyra. She was started on levetiracetam 500 mg PO twice daily. Continue levetiracetam. Monitor for any exacerbation of her psychiatric condition. If she still has memory problems, which can be related to a prolonged post ictal period or related to her underlying demyelinating condition, repeat an EEG tomorrow to make sure she is not having focal seizures. Discontinue Ampyra and she should not be on this medication from now on. [place] can also lower the seizure threshold. If she has recurrence of seizures , then consider switching lithium to Depakote. This can be considered as an outpatient. Recommend follow-up with Dr. Lara in 3-4 weeks. We will arrange for a follow- up. Education and counseling regarding seizures and seizure precaution/hygiene was discussed with the patient today. Neurology will continue to follow. Time spent: 25 minutes of which greater than 50% was spent reviewing the electronic medical records, obtaining history, examining the patient, and discussing the treatment plan as mentioned above. - Patient Problems (1) Seizure Current Visit: Yes Status: Acute Priority: High Code(s): R56.9 - UNSPECIFIED CONVULSIONS SNOMED Code(s): 01631265 Comment: New onset seizure may be due to progressing/scarring from MS, vs medication side effect. Patient on multiple medications that can cause seizures , including lithium, oxybutynin, and Viibryd. Neurology consulted. Abnormal EEG. started on Keppra. Today states she is having memory issues, will monitor for today. MRI reviewed. Ampyra has been held due to the fact that it lowers seizure threhold. (2) Multiple sclerosis Current Visit: No Status: Chronic Code(s): G35 - MULTIPLE SCLEROSIS SNOMED Code(s): 00417240 Comment: No current exacerbation apparent. Management deferred to neurology. (3) Hypothyroidism Current Visit: No Status: Chronic Code(s): E03.9 - HYPOTHYROIDISM, UNSPECIFIED SNOMED Code(s): 29072668 Comment: Due to TSH being low, we decreased her levothyroxine to 50 mcg ( home dose was 75mcg) will require repeat TSH as outpatient in 4-6 weeks. (4) DVT prophylaxis Current Visit: No Status: Acute Priority: Medium Code(s): GSF3110 - SNOMED Code(s): 167720989 Comment: - high risk due to h/o DVT. Will have Lovenox SC daily (5) DNR (do not resuscitate) Current Visit: No Status: Acute (6) Psychiatric diagnosis Current Visit: Yes Status: Acute Code(s): F99 - MENTAL DISORDER, NOT OTHERWISE SPECIFIED SNOMED Code(s): 72397962 Comment: Has mental illness, continue home medications. Status and Disposition: Requires inpatient stay for neurology assessment.
[2018-06-29] MEDS: Lithium Carbonate ER* 450 MG TAB.ER PO SCH (20:13)
[2018-06-29] MEDS: oxyCODONE TAB* 5 MG TAB PO PRN (20:18)
[2018-06-30] MEDS: Levothyroxine TAB* 50 MCG TAB PO SCH (05:20)
[2018-06-30] MEDS: Enoxaparin(*) 40 MG/0.4 ML SYR SUBCUT SCH (05:21)
[2018-06-30] MEDS: NS 0.9% 1000 ML* 1,000 ML IV SCH ×2 (07:54→12:48)
[2018-06-30] MEDS: PTO: Linaclotide (NF) 290 MCG CAP PO SCH (09:37)
[2018-06-30] MEDS: BREXPIPRAZOLE 1 MG PO SCH (09:37)
[2018-06-30] MEDS: Methylphenidate ER TAB* 18 MG PO SCH (09:38)
[2018-06-30] MEDS: levETIRAcetam TAB* 500 MG PO SCH (09:38)
[2018-06-30] MEDS: Omeprazole CAP (NF) 20 MG CAP.DR PO SCH (09:38)
[2018-06-30] MEDS: Baclofen TAB* 10 MG PO SCH (09:38)
[2018-06-30] MEDS: Docusate CAP* 100 MG PO SCH (09:39)
[2018-06-30] MEDS: Oxybutynin TAB* 5 MG PO SCH (09:39)
[2018-06-30] MEDS: Magnesium Oxide TAB* 400 MG PO SCH (09:39)
[2018-06-30] MEDS: Potassium Chlor TAB* 10 MEQ TAB.ER PO SCH (09:39)
[2018-06-30] MEDS: CMCS:Vilazodone (NF) 40 MG TAB PO SCH (09:39)
[2018-06-30] MEDS: Amantadine CAP* 100 MG PO SCH (09:39)
--- NOTE | 2018-06-30 11:46 | PN ---
Subjective Date of Service: 06/30/18 Length of Stay: 3 Days Neurology is following Ms. Cisneros for the evaluation and management of seizure. Interval History: She is complaining of memory loss since admission. She wakes up in the morning feeling confused and cannot recall the previous day. This is a new problem. She denied any tongue biting/swelling or incontinence. She denied any headache or new visual disturbance. There has been no reported seizures since admission. She is more irritable and feels like hurting herself. When asked to elaborate further, she denied suicide or homicide ideation but stated that she has had times where she thought of not wanting to live due to her condition. She has a counselor that she talks to and refused to talk to anyone else. I did offer that we consult our psychiatrist but she stated, " I will not talk to them." She reiterated that she does not have any thoughts of hurting herself at this current time. The patient was started on levetiracetam on 06/27/2018 for seizures. Review of Systems: Denied CP, SOB, or palpitations. 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, no alcohol, no drug use Past Medical History: Findings - PMH MS, optic neuritis, depression, asthma, migraines, urinary incontinence, h/o LT femoral DVT, h/o myositis hip/jaw Objective Active Medications: Acetaminophen (Tylenol Tab*) 650 mg PO Q4H PRN PRN Reason: FEVER/PAIN Last Admin: 06/27/18 14:34 Dose: 650 mg Acetaminophen (Tylenol Tab*) 325 mg PO Q6H PRN PRN Reason: PAIN OR TEMPERATURE Amantadine HCl (Symmetrel Cap*) 100 mg PO DAILY [facility] Last Admin: 06/30/18 09:39 Dose: 100 mg Baclofen (Lioresal Tab*) 15 mg PO BID [facility] Last Admin: 06/30/18 09:38 Dose: 15 mg Brexpiprazole (Rexulti) 1 mg PO DAILY [facility] Last Admin: 06/30/18 09:37 Dose: 1 mg Carbamazepine (Tegretol Tab(*)) 200 mg PO BID [facility] Docusate Sodium (Colace Cap*) 100 mg PO BID [facility] Last Admin: 06/30/18 09:39 Dose: Not Given Enoxaparin Sodium (Lovenox(*)) 40 mg SUBCUT Q24H [facility] Last Admin: 06/30/18 05:21 Dose: 40 mg Sodium Chloride (Ns 0.9% 1000 Ml*) 1,000 mls @ 100 mls/hr IV PER RATE [facility] Last Admin: 06/30/18 07:54 Dose: 100 mls/hr Levothyroxine Sodium (Synthroid Tab*) 50 mcg PO DAILY@0600 [facility] Last Admin: 06/30/18 05:20 Dose: 50 mcg Linaclotide (Linzess (Nf)) 290 mcg PO DAILY [facility] Last Admin: 06/30/18 09:37 Dose: 290 mcg [place] Carbonate ([place] Carbonate Er Tab*) 900 mg PO BEDTIME [facility]; Protocol Last Admin: 06/29/18 20:13 Dose: 900 mg Magnesium Oxide (Magox 400 Tab*) 800 mg PO DAILY [facility] Last Admin: 06/30/18 09:39 Dose: 800 mg Methylphenidate HCl (Concerta Er Tab*) 36 mg PO DAILY [facility] Last Admin: 06/30/18 09:38 Dose: 36 mg Omeprazole (Prilosec Cap*) 20 mg PO DAILY@0730 [facility] Last Admin: 06/30/18 09:38 Dose: 20 mg Ondansetron HCl (Zofran Tab*) 4 mg PO Q6H PRN PRN Reason: NAUSEA Oxybutynin Chloride (Ditropan Tab*) 5 mg PO QAM [facility] Last Admin: 06/30/18 09:39 Dose: 5 mg Oxybutynin Chloride (Ditropan Tab*) 10 mg PO QPM [facility] Last Admin: 06/29/18 18:05 Dose: 10 mg Oxycodone HCl (Roxycodone Tab*) 5 mg PO Q6H PRN PRN Reason: . Last Admin: 06/29/18 20:18 Dose: 5 mg Oxycodone/Acetaminophen (Percocet 5/325 Tab*) 1 tab PO Q6H PRN PRN Reason: PAIN Last Admin: 06/28/18 13:12 Dose: 1 tab Potassium Chloride (Klor Con Er Tab*) 10 meq PO DAILY [facility] Last Admin: 06/30/18 09:39 Dose: 10 meq Prochlorperazine (Compazine Tab*) 5 mg PO Q6H PRN PRN Reason: NAUSEA Vilazodone HCl (Viibryd (Nf)) 40 mg PO DAILY [facility] Last Admin: 06/30/18 09:39 Dose: 40 mg Vital Signs 06/29/18 06/29/18 06/29/18 15:24 19:20 19:50 Temperature 98.2 F 98.1 F Pulse Rate 87 105 Respiratory 18 24 17 Rate Blood Pressure 109/62 123/64 (mmHg) O2 Sat by Pulse 94 99 Oximetry 06/29/18 06/29/18 06/29/18 19:51 20:00 20:18 Temperature Pulse Rate Respiratory 17 17 17 Rate Blood Pressure (mmHg) O2 Sat by Pulse 99 Oximetry 06/29/18 06/29/18 06/30/18 23:33 23:43 04:13 Temperature 98.6 F 98.2 F Pulse Rate 89 86 Respiratory 16 16 16 Rate Blood Pressure 114/60 108/63 (mmHg) O2 Sat by Pulse 99 94 Oximetry 06/30/18 06/30/18 07:36 07:57 Temperature 98.0 F Pulse Rate 73 Respiratory 16 16 Rate Blood Pressure 107/65 (mmHg) O2 Sat by Pulse 96 96 Oximetry Intake and Output Last 24 Hours 06/28/18 06/29/18 06/30/18 07/01/18 06:59 06:59 06:59 06:59 Intake Total 1390 4280 3441 991 Output Total 350 2425 1075 300 Balance 1040 1855 2366 691 Intake: IV Fluids 980 2960 1941 991 LR 980 NS (0.9%) 2960 1941 991 Oral 410 1320 1500 Output: Urine 350 2425 1075 300 Other: Estimated Void Large Large Large Date of Last Bowel 06/30/2018 Movement # Bowel Movements 0 1 1 Estimated Stool Amount Large Small # Voids 1 1 1 Oxygen Devices in Use Now: None Neurology Exam: General: Well nourished female in no acute distress HEENT: Normocephalic/atraumatic, sclera anicteric, mucous membranes moist Neck: Supple Chest: Clear to auscultation bilaterally Cardiovascular: Regular rate and rhythm without murmurs, rubs, gallops Extremities: No clubbing, cyanosis, or edema Skin: tattoos were noted. Neurological Findings: Awake, Alert, Oriented x3 Speech: mild dysarthria. Cranial Nerve: PERRL, she has bilateral CYNDY. No facial asymmetry or weakness. Motor: paraparesis graded as 2-3/5 throughout, with 5/5 strength in the upper extremity, 4+ in the distal hand muscles. Sensation: intact to LT/PP bilaterally upper and lower extremities Deep Tendon Reflex: 2+ symmetric in the upper/lower extremities, extensor plantar responses bilaterally. Dysmetria to finger to nose on the left. Gait: paraparetic with spasticity of the lower extremities bilaterally. Result Diagrams: 06/27/18:18 06/27/18 01:18 Additional Lab and Data: Laboratory Tests 06/27/18 06/27/18 06/27/18:18 01:18 01:18 INR (Anticoag Therapy) 1.02 APTT 24.1 L Lactic Acid 1.8 Calcium 9.9 AST 19 ALT 23 Alkaline Phosphatase 150 H Troponin I 0.00 Albumin 4.1 Triglycerides 96 Cholesterol 152 LDL Cholesterol 73 HDL Cholesterol 59.7 Microbiology and Other Data: Microbiology 06/27/18 06:20 Urine Culture - Final Urine No Growth (<1,000 CFU/mL) Diagnostic Imaging: MRI brain with and without contrast: diffuse white matter lesions, mostly in the subcortical and periventricular region with a lesion in the lani. No enhancing lesions. EEG from 06/28/2018: diffuse background slowing and irregular sharp theta and delta frequencies. There were no clear epileptiform discharges or electrographic seizures. Assessment/Plan 1. New onset seizures in a patient with multiple sclerosis and recently taking Ampyra- The patient seems to be having side effects related to levetiracetam. Levetiracetam can exacerbate the patient's underlying psychiatric illness and may be the cause for her increase irritability and memory loss. She agreed to discontinue levetiracetam and start carbamazepine 200 mg PO twice daily. We can adjust the dose and obtain a level as an outpatient. We discussed the side effects of carbamazepine, which include, but are not limited to, drowsiness and hyponatremia. Carbamazepine is a better option given the mood stabilizing effect in someone with bipolar disorder. Monitor the lithium level while on carbamazepine as it may lower the lithium level. Discontinue Ampyra and she should not be on this medication from now on. 2. Memory loss- this is a new problem and may be related to levetiracetam, underlying multiple sclerosis, recent seizure with prolonged post-ictal memory disturbance, or pseudodementia in the setting of her psychiatric condition. We will switch levetiracetam, Synthroid has been readjusted, and check for other reversible causes of memory loss (e.g., B12 deficiency). If she is ready for discharge, we can follow-up with these results and contact her with recommendations, if needed. 3. Mood disorder- she denied suicide ideation. She has an appointment to see her counselor soon. She refused any further evaluation by an inpatient psychiatrist. Recommend follow-up with Dr. Lara in 3-4 weeks. We will arrange for a follow- up. Neurology will sign off as the patient is scheduled to be discharged today. Time spent: 25 minutes of which greater than 50% was spent reviewing the electronic medical records, obtaining history, examining the patient, and discussing the treatment plan as mentioned above.
--- NOTE | 2018-06-30 11:49 | PN ---
Subjective Date of Service: 06/30/18 Interval History: Doing well, planning for discharge: she states her services needs to be restarted prior to going home. Neurology change keppra to carbamazipine. She reports no thoughts of hurting herself or anyone else. No further seizure episodes. 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, no alcohol, no drug use Past Medical History: Findings - PMH MS, optic neuritis, depression, asthma, migraines, urinary incontinence, h/o LT femoral DVT, h/o myositis hip/jaw Objective Active Medications: Acetaminophen (Tylenol Tab*) 650 mg PO Q4H PRN PRN Reason: FEVER/PAIN Last Admin: 06/27/18 14:34 Dose: 650 mg Acetaminophen (Tylenol Tab*) 325 mg PO Q6H PRN PRN Reason: PAIN OR TEMPERATURE Amantadine HCl (Symmetrel Cap*) 100 mg PO DAILY [facility] Last Admin: 06/30/18 09:39 Dose: 100 mg Baclofen (Lioresal Tab*) 15 mg PO BID [facility] Last Admin: 06/30/18 09:38 Dose: 15 mg Brexpiprazole (Rexulti) 1 mg PO DAILY [facility] Last Admin: 06/30/18 09:37 Dose: 1 mg Carbamazepine (Tegretol Tab(*)) 200 mg PO BID [facility] Docusate Sodium (Colace Cap*) 100 mg PO BID [facility] Last Admin: 06/30/18 09:39 Dose: Not Given Enoxaparin Sodium (Lovenox(*)) 40 mg SUBCUT Q24H [facility] Last Admin: 06/30/18 05:21 Dose: 40 mg Sodium Chloride (Ns 0.9% 1000 Ml*) 1,000 mls @ 100 mls/hr IV PER RATE [facility] Last Admin: 06/30/18 07:54 Dose: 100 mls/hr Levothyroxine Sodium (Synthroid Tab*) 50 mcg PO DAILY@0600 [facility] Last Admin: 06/30/18 05:20 Dose: 50 mcg Linaclotide (Linzess (Nf)) 290 mcg PO DAILY [facility] Last Admin: 06/30/18 09:37 Dose: 290 mcg [place] Carbonate ([place] Carbonate Er Tab*) 900 mg PO BEDTIME [facility]; Protocol Last Admin: 06/29/18 20:13 Dose: 900 mg Magnesium Oxide (Magox 400 Tab*) 800 mg PO DAILY [facility] Last Admin: 06/30/18 09:39 Dose: 800 mg Methylphenidate HCl (Concerta Er Tab*) 36 mg PO DAILY [facility] Last Admin: 06/30/18 09:38 Dose: 36 mg Omeprazole (Prilosec Cap*) 20 mg PO DAILY@0730 [facility] Last Admin: 06/30/18 09:38 Dose: 20 mg Ondansetron HCl (Zofran Tab*) 4 mg PO Q6H PRN PRN Reason: NAUSEA Oxybutynin Chloride (Ditropan Tab*) 5 mg PO QAM [facility] Last Admin: 06/30/18 09:39 Dose: 5 mg Oxybutynin Chloride (Ditropan Tab*) 10 mg PO QPM [facility] Last Admin: 06/29/18 18:05 Dose: 10 mg Oxycodone HCl (Roxycodone Tab*) 5 mg PO Q6H PRN PRN Reason: . Last Admin: 06/29/18 20:18 Dose: 5 mg Oxycodone/Acetaminophen (Percocet 5/325 Tab*) 1 tab PO Q6H PRN PRN Reason: PAIN Last Admin: 06/28/18 13:12 Dose: 1 tab Potassium Chloride (Klor Con Er Tab*) 10 meq PO DAILY [facility] Last Admin: 06/30/18 09:39 Dose: 10 meq Prochlorperazine (Compazine Tab*) 5 mg PO Q6H PRN PRN Reason: NAUSEA Vilazodone HCl (Viibryd (Nf)) 40 mg PO DAILY [facility] Last Admin: 06/30/18 09:39 Dose: 40 mg Vital Signs - 8 hr 06/30/18 06/30/18 06/30/18 04:13 07:36 07:57 Temperature 98.2 F 98.0 F Pulse Rate 86 73 Respiratory 16 16 16 Rate Blood Pressure 108/63 107/65 (mmHg) O2 Sat by Pulse 94 96 96 Oximetry Oxygen Devices in Use Now: None Eyes: PERRLA Ears/Nose/Mouth/Throat: Mucous Membranes Moist Respiratory: Clear to Auscultation Cardiovascular: NL Sounds; No Murmurs; No JVD, RRR Abdominal: NL Sounds; No Tenderness; No Distention Neurological: Alert and Oriented x 3 Result Diagrams: 06/27/18 01:18 06/27/18 01:18 Additional Lab and Data: Laboratory Tests 06/27/18 06/27/18 06/27/18 01:18 01:18 01:18 INR (Anticoag Therapy) 1.02 APTT 24.1 L Lactic Acid 1.8 Calcium 9.9 AST 19 ALT 23 Alkaline Phosphatase 150 H Troponin I 0.00 Albumin 4.1 Triglycerides 96 Cholesterol 152 LDL Cholesterol 73 HDL Cholesterol 59.7 Microbiology and Other Data: Microbiology 06/27/18 06:20 Urine Culture - Final Urine No Growth (<1,000 CFU/mL) Diagnostic Imaging: MRI brain with and without contrast: diffuse white matter lesions, mostly in the subcortical and periventricular region with a lesion in the lani. No enhancing lesions. EEG from 06/28/2018: diffuse background slowing and irregulary sharp theta and delta frequencies. There were no clear epileptiform discharges or electrographic seizures. EKG Data: EKG; NSR, normal axis, diffuse T-wave flattening Assess/Plan/Problems-Billing - Patient Problems (1) Seizure Current Visit: Yes Status: Acute Priority: High Code(s): R56.9 - UNSPECIFIED CONVULSIONS SNOMED Code(s): 37791927 Comment: New onset seizure may be due to progressing/scarring from MS, vs medication side effect. Patient on multiple medications that can cause seizures , including lithium, oxybutynin, and Viibryd. Neurology consulted. Abnormal EEG. started on Keppra. Today states she is having memory issues, will monitor for today. MRI reviewed. Ampyra has been held due to the fact that it lowers seizure threhold. (2) Multiple sclerosis Current Visit: No Status: Chronic Code(s): G35 - MULTIPLE SCLEROSIS SNOMED Code(s): 39298229 Comment: No current exacerbation apparent. Management deferred to neurology. (3) Hypothyroidism Current Visit: No Status: Chronic Code(s): E03.9 - HYPOTHYROIDISM, UNSPECIFIED SNOMED Code(s): 27704398 Comment: Due to TSH being low, we decreased her levothyroxine to 50 mcg ( home dose was 75mcg) will require repeat TSH as outpatient in 4-6 weeks. (4) DVT prophylaxis Current Visit: No Status: Acute Priority: Medium Code(s): REJ2368 - SNOMED Code(s): 861592306 Comment: - high risk due to h/o DVT. Will have Lovenox SC daily (5) DNR (do not resuscitate) Current Visit: No Status: Acute (6) Psychiatric diagnosis Current Visit: Yes Status: Acute Code(s): F99 - MENTAL DISORDER, NOT OTHERWISE SPECIFIED SNOMED Code(s): 42370929 Comment: Has mental illness, continue home medications. Status and Disposition: Plan for discharge today
[2018-06-30] MEDS ORDERED: carBAMazepine TAB(*) 200 MG PO SCH (12:00)
[2018-06-30 12:35] LABS: Albumin 3.2 g/dL (3.2-5.2); Albumin/Globulin Ratio 1.3 (1-3); BUN/Creatinine Ratio 5.1 (8-20); Calcium 8.6 mg/dL (8.6-10.3); EGFR Non-African American 108.3 (>60); Globulin 2.5 g/dL (2-4); Potassium 3.4 mmol/L (3.5-5.0); Total Bilirubin 0.5 mg/dL (0.2-1.0); Total Protein 5.7 g/dL (6.4-8.9)
[2018-06-30 12:50] LABS: Urine Appearance Clear; Urine Bacteria Absent (Absent); Urine Bilirubin Negative (Negative); Urine Blood 1+ (Negative); Urine Color Straw; Urine Glucose Negative (Negative); Urine Ketones Negative (Negative); Urine Nitrite Negative (Negative); Urine Protein Negative (Negative); Urine Red Blood Cell Trace(0-2/hpf) (Absent); Urine Specific Gravity 1.006 (1.010-1.030); Urine Urobilinogen Negative (Negative); Urine White Blood Cell Absent (Absent)
[2018-06-30 13:24] LABS: Lithium 0.58 mmol/L (0.6-1.2)
[2018-06-30 13:34] LABS: TSH (Thyroid Stimulating Horm) 0.08 mcIU/mL (0.34-5.60)
[2018-06-30 13:38] LABS: Free T3 3.4 pg/mL (2.5-3.9); Free T4 1.09 ng/dL (0.61-1.12)
[2018-06-30] MEDS ORDERED: Cyanocobalamin TAB* 500 MCG PO SCH (15:00)
[2018-06-30] MEDS ORDERED: Cyanocobalamin INJ * 1,000 MCG/ML VIAL 1 ML VIAL IM ONE (15:00)
[2018-06-30 15:40] VITALS: BP 120/66
[2018-06-30] MEDS ORDERED: Potassium Chlor TAB* 20 MEQ TAB.ER PO ONE (16:01)
[2018-06-30 17:57] LABS: ALP Bone 65.9 IU/L (12.1-42.7); ALP Intestine 3.5 IU/L (0.0-11.0); ALP Liver 1 43.3 IU/L (16.2-70.2); ALP Liver 1% 33.6 % (27.8-76.3); ALP Liver 2 16.3 IU/L (0.0-5.8); ALP Liver 2% 12.6 % (0.0-8.0); ALP Placental NotPresent; Alkaline Phosphatase 129 U/L (35 - 104)
--- NOTE | 2018-06-30 21:43 | DS ---
CC: Dr. Chiki Chandler; Dr. Lara * DISCHARGE SUMMARY: DATE OF ADMISSION: 06/27/18 DATE OF DISCHARGE: 06/30/18 HOSPITAL COURSE: This is a 48-year-old female with a history of multiple sclerosis, who was brought into the hospital because of a witnessed seizure by her son. On admission, the patient was seen and evaluated in the emergency room , was found to have sodium of 140, potassium of 3.6, underwent a brain CAT scan which showed no acute intracranial hemorrhage or acute territorial type infarct , moderate nonspecific periventricular cerebral white matter disease again is visualized. This is consistent with clinical history of multiple sclerosis. Subsequently, the hospitalist service was contacted for admission. The patient was seen and evaluated in the emergency room by my colleague, Dr. Zane Corea. Please see his H and P for further details. Neurological consultation was requested and an EEG and MRI were ordered. The patient was seen by Dr. Mcwilliams. An EEG was done, which was done on 06/27/18. It showed that the patient had an abnormal awake EEG. There was bilateral theta wave and sharply contoured theta during the recording. MRI was done which showed moderate large burden of cerebral hemisphere with white matter lesions and subtle white matter lesions at the lani consistent with demyelinating disease given the history of multiple sclerosis. The patient on 06/27/18 also had strange eye movements for which again the neurologist also saw the patient. It was found on further records that the patient was recently started on Ampyra. Ampyra is known to cause lowering of the true seizure threshold and it was recommended that the patient not be on this medication again. The patient was subsequently started on Keppra and then eventually changed from Keppra to carbamazepine. The patient also underwent another EEG on 06/28/18. This showed abnormal awake and drowsy EEG due to diffuse disorganization of the background with intermittent diffuse mixed slowing. Also, the patient was complaining of some memory issues for which vitamin B12 level was done and vitamin B12 level was low, it was found to be 140. Also during the hospital stay, we found that the patient' s TSH was low at 0.08. We subsequently decreased patient's levothyroxine from 75 mcg to 50 mcg. On the day of discharge, we resumed patient's home medications and home services. With the help of the housing case manager, the patient was prepared for discharge. For my physical examination from today, please see my progress note. DISCHARGE MEDICATIONS: Include: 1. Ondansetron 4 mg every 6 hours as needed. 2. Oxycodone 10 mg every 4 hours as needed. 3. Polyethylene glycol 17 g daily as needed. 4. Acetaminophen 650 mg every 4 hours as needed. 5. Baclofen 50 mg twice a day. 6. Viibryd 40 mg daily. 7. Amantadine 100 mg twice a day. 8. Potassium tablets 10 mEq p.o. daily. 9. Oxybutynin 10 mg at night. 10. Oxybutynin 5 mg in the morning. 11. Methylphenidate ER 36 mg daily. 12. Levothyroxine 50 mcg, prescription was given for this. Of note, we changed the patient from levothyroxine 75 mcg to 50 mcg. 13. Minirin topically. 14. Rexulti 1 mg daily. 15. Linzess 290 mcg daily. 16. [place] carbonate 900 mg at bedtime. 17. Compazine 5 mg every 6 hours as needed. 18. Tegretol 200 mg twice daily, prescription was given for this. 19. Cyanocobalamin/folic acid lozenges 1 lozenge daily. Prescription was also given for the cyanocobalamin/folic acid. DISCHARGE PLAN: The patient to be discharged home in fair condition. The patient to have activity as tolerated, follow up with PCP in 1 week, follow up with Neurology, Dr. Lara in 3 to 4 weeks. The patient to return to the emergency room for any seizures, abnormal movement or if any new symptoms occur. The patient to contact PCP for any concerns or questions. Home services with the visiting nurses was initiated and resumed. DISCHARGE DIAGNOSES: Include: 1. Seizure, new onset. 2. History of multiple sclerosis. [id number]/CPS #: [id number] [facility]
== END 2018-06-30 16:10 | disposition home or self-care (01) | DRG 101 ==
LOC: ED 00:15 → SSU 03:13 → INTOOBSV 03:13 → SSU 06-28 18:09
PROVIDERS: ADMIT Internal Medicine; ATTEND Internal Medicine
DX: R56.9 Unspecified convulsions (principal); G35 Multiple sclerosis; E03.9 Hypothyroidism, unspecified; F32.9 Major depressive disorder, single episode, unspecified; G43.909 Migraine, unspecified, not intractable, without status migrainosus; J45.909 Unspecified asthma, uncomplicated; Z66 Do not resuscitate; R41.3 Other amnesia; F39 Unspecified mood [affective] disorder; F43.10 Post-traumatic stress disorder, unspecified; G47.30 Sleep apnea, unspecified; F10.21 Alcohol dependence, in remission; Z82.49 Family history of ischemic heart disease and other diseases of the circulatory system; Z83.3 Family history of diabetes mellitus; Z83.438 Family history of other disorder of lipoprotein metabolism and other lipidemia; Z79.1 Long term (current) use of non-steroidal anti-inflammatories (NSAID); Z79.899 Other long term (current) drug therapy; Z86.718 Personal history of other venous thrombosis and embolism; Z79.01 Long term (current) use of anticoagulants; Z86.711 Personal history of pulmonary embolism; Z91.030 Bee allergy status; Z88.5 Allergy status to narcotic agent; Z88.0 Allergy status to penicillin; Z88.2 Allergy status to sulfonamides; Z88.8 Allergy status to other drugs, medicaments and biological substances; Z91.018 Allergy to other foods
CPT/HCPCS: 36415; 70450; 70553; 71045; 80053; 80061; 80178; 81003; 81015; 82550; 82607; 83605; 84080; 84439; 84443; 84481; 84484; 85025; 85610; 85730; 87086; 93005; 95816; 99284; A9270-GY; A9579; G0378; G8978-GP-CK; G8979-GP-CI; J1642; J1650; J3420

== ENCOUNTER 2018-07-01 15:40 | Inpatient (IN) | payer MEDICARE, MEDICAID ==
[2018-07-01] MEDS ORDERED: NS 0.9% 1000 ML* 1,000 ML IV ONE (15:57)
--- NOTE | 2018-07-01 16:02 | ED ---
Altered Mental Status - HPI Summary HPI Summary: Patient is a 48 y/o F presenting to ED via ambulance with complaints of AMS. Patient was [place] [facility] had been admitted for seizure five days ago. 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 Hand Thermal Cutter notes that decreased appetite started 3-4 months ago when she was placed on chemotherapy for MS. She states that today , patient had to be reminded to eat. Patient reports that she does not recall the past couple of days. No SOB reported. It is noted that patient did not take her daily medications. On triage, pain is denied. Nothing is noted to aggravate/ alleviate Sx. Home medications, allergies, nurse's note are reviewed. - History Of Current Complaint Chief Complaint: EDAltMentalStatus Stated Complaint: CONFUSION Time Seen by Provider: 07/01/18 15:52 Hx Obtained From: Patient, Family/Hand Thermal Cutter - [employer] Onset/Duration: Still Present Timing: Constant Severity Currently: None - pain denied Character: Confusion - difficulty with memory Aggravating Factor(s): Nothing Alleviating Factor(s): Nothing Associated Signs And Symptoms: Positive: Weakness - fatigue - Allergies/Home Medications Allergies/Adverse Reactions: Allergies Allergy/AdvReac Type Severity Reaction Status Date / Time bee venom protein (honey bee) Allergy Severe See Comment Verified 03/02/18 10:15 onion Allergy Severe See Comment Verified 03/02/18 10:15 Sulfa (Sulfonamide Allergy Severe Unknown Verified 03/02/18 10:15 Antibiotics) Reaction Details aspirin Allergy Intermediate Nausea Verified 03/02/18 10:15 Penicillins Allergy Intermediate See Comment Verified 03/02/18 10:15 Bond And Derivatives Allergy Unknown See Comment Verified 03/02/18 10:15 PMH/Surg Hx/FS Hx/Imm Hx Endocrine/Hematology History: Reports: Hx Thyroid Disease Denies: Hx Diabetes, Hx Anemia, Hx Unexplained Bleeding, Other Endocrine/ Hematological Disorders Cardiovascular History: Denies: Hx Aneurysm, Hx Angina, Hx Angioplasty, Hx Auto Implanted Cardiovert Defib, Hx Cardiac Arrest, Hx Cardiomegaly, Hx Congenital Heart Disease, Hx Congestive Heart Failure, Hx Coronary Artery Disease, Hx Deep Vein Thrombosis, Hx Embolism, Hx Hypercholesterolemia, Hx Hypotension, Hx Hypertension, Hx Pacemaker/ICD, Hx Peripheral Vascular Disease, Hx Rheumatic Fever, Hx Syncope, Hx Valvular Heart Disease, Other Cardiovascular Problems/Disorders Respiratory History: Reports: Hx Asthma - as a child, Hx Pulmonary Embolism, Hx Sleep Apnea Denies: Hx Chronic Bronchitis, Hx Chronic Obstructive Pulmonary Disease (COPD ), Hx Cystic Fibrosis, Hx Lung Cancer, Hx Pleural Effusion, Hx Pneumonia, Hx Pulmonary Edema, Hx Seasonal Allergies, Other Respiratory Problems/Disorders GI History: Reports: Hx Gastroesophageal Reflux Disease, Hx Ulcer Denies: Hx Gastrointestinal Bleed, Hx Hiatal Hernia History: Reports: Other Problems/Disorders - urinary incontinence Denies: Hx Dialysis, Hx Kidney Stones, Hx Renal Disease Musculoskeletal History: Reports: Hx Arthritis - knees, right hand, Hx Back Problems, Other Musculoskeletal History - MS Denies: Hx Bursitis, Hx Congenital Bone Abnormalities, Hx Fibromyalgia, Hx Gout, Hx Orthopedic Injury, Hx Osteoporosis, Hx Scoliosis, Hx Tendonitis Sensory History: Reports: Hx Contacts or Glasses, Other Sensory Impairments - Numbness in feet Denies: Hx Cataracts, Hx Eye Injury, Hx Eye Prosthesis, Hx Glaucoma, Hx Legally Blind, Hx Macular Degeneration, Hx Vision Problem, Hx Deafness, Hx Hearing Aid, Hx Hearing Problem Opthamlomology History: Reports: Hx Contacts or Glasses, Other Sensory Impairments - Numbness in feet Denies: Hx Cataracts, Hx Eye Injury, Hx Eye Prosthesis, Hx Glaucoma, Hx Legally Blind, Hx Macular Degeneration, Hx Vision Problem Neurological History: Reports: Hx Headaches, Hx Migraine, Hx Nerve Disease, Other Neuro Impairments/Disorders - MS Denies: Hx Dementia, Hx Developmental Delay, Hx Seizures, Hx Spinal Cord Injury, Hx Transient Ischemic Attacks (TIA) Psychiatric History: Reports: Hx Anxiety, Hx Depression, Hx Suicide Attempt, Hx Substance Abuse Denies: Hx Attention Deficit Hyperactivity Disorder, Hx Eating Disorder, Hx Panic Disorder, Hx Post Traumatic Stress Disorder, Hx Inpatient Treatment, Hx Community Mental Health Tx, Hx Schizophrenia, Hx Bipolar Disorder, Hx of Violent Episodes Against Others, Other Psychiatric Issues/Disorders - Cancer History Hx Chemotherapy: Yes - For MS Hx Radiation Therapy: No - Surgical History Surgery Procedure, Year, and Place: breast reduction Hx Anesthesia Reactions: No - Immunization History Date of Tetanus Vaccine: Unknown Date of Influenza Vaccine: Unk re: Fall 2014 Infectious Disease History: No Infectious Disease History: Denies: Hx Clostridium Difficile, Hx Hepatitis, Hx Human Immunodeficiency Virus (HIV), Hx of Known/Suspected MRSA, Hx Shingles, Hx Tuberculosis, Hx Known/ Suspected VRE, Hx Known/Suspected VRSA, History Other Infectious Disease, Traveled Outside the [place] in Last 30 Days - Family History Known Family History: Positive: Cardiac Disease - Father, Diabetes Family History: FHx of spina bifida - Social History Alcohol Use: None 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 Hx Substance Use: No Substance Use Type: Reports: None Hx Tobacco Use: Yes Smoking Status (MU): Former Smoker Type: Cigarettes Amount Used/How Often: 2 cigaretts/week Length of Time of Smoking/Using Tobacco: 2 months Have You Smoked in the Last Year: No Review of Systems Positive: Fatigue Positive: Blurred Vision Positive: Other - POSITIVE - DECREASED APPETITE Neurological: Other - POSITIVE - UNSTEADY GAIT, IMPAIRED SPEECH, DIFFICULTY WITH MEMORY 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 Psychological: Other - POSITIVE - AMS All Other Systems Reviewed And Are Negative: Yes Physical Exam - Summary Physical Exam Summary: Appearance: Well appearing, no pain distress; weak voice, head is forward, posture is weak Skin: warm, dry, reflects adequate perfusion Head/face: normal Eyes: EOMI, LUIS; nystagmus with lateral movement ENT: mucous membranes dry Neck: supple, non-tender Respiratory: CTA, breath sounds present Cardiovascular: RRR, pulses symmetrical Abdomen: non-tender, soft Bowel Sounds: present Musculoskeletal: LE DTRs are 3+, minimal movement and sensation of BLE, good upper body strength Neuro: sensory motor intact, A&Ox3, GCS 14, mild confusion Triage Information Reviewed: Yes Vital Signs On Initial Exam: Initial Vitals Temp Pulse Resp BP Pulse Ox 97.0 F 82 16 121/81 100 07/01/18 15:41 07/01/18 15:41 07/01/18 15:41 07/01/18 15:41 07/01/18 15:41 Vital Signs Reviewed: Yes Diagnostics - Vital Signs Vital Signs Temp Pulse Resp BP Pulse Ox 07/01/18 15:41 97.0 F 82 16 121/81 100 - Laboratory Result Diagrams: 07/01/18 16:30 07/01/18 16:30 Lab Statement: Any lab studies that have been ordered have been reviewed, and results considered in the medical decision making process. - EKG 1615 Cardiac Rate: NL - rate of 83 BPM EKG Rhythm: Sinus Rhythm ST Segment: Normal Summary of EKG Findings: EKG showed NSR with rate of 83 BPM, normal axis, normal intervals, normal ST. Altered Mental Statu Course/Dx - Course Course Of Treatment: Nurse's notes reviewed. Patient with recent hospitalization for MS medication causing seizures. Patient has been unable to feed herself or drink and has been confused since returning home. She only has caregivers for portions of the day. Her long-term caregiver states that she has never seen her this week. She is mildly confused here. Her lithium level is nontoxic. Her carbamazepine level is pending. She remains hyperthyroid from her medications. Given her inability to care for herself and extreme risk for fall she will be hospitalized with concern for placement. - Diagnoses Differential Diagnosis/HQI/PQRI: Hypoglycemia, Hypoxia, Medication Reaction, Metabolic Disorder, Sepsis Provider Diagnoses: Multiple sclerosis, Epilepsy, Generalized weakness, Failure to thrive in adult , Hyperthyroidism - Provider Notifications Discussed Care Of Patient With: Brittany Zambrano Time Discussed With Above Provider: 15:27 Instructed by Provider To: Other - 152 - Patient's case was discussed with Dr. Zambrano, Dr. Zambrano accepts for admission Discharge - Sign-Out/Discharge Documenting (check all that apply): Patient Departure - ADMIT - Discharge Plan Condition: Fair Disposition: ADMITTED TO [facility] Referrals: Chiki Chandler MD [Primary Care Provider] - - Billing Disposition and Condition Condition: FAIR Disposition: Admitted to [facility] - Attestation Statements Document Initiated by Polly: Yes Documenting Scribe: JELANI KAMINSKI Provider For Whom Polly is Documenting (Include Credential): OLGA JORDAN MD Scribe Attestation: IJELANI , scribed for OLGA JORDAN MD on 07/01/18 at 1802. Scribe Documentation Reviewed: Yes Provider Attestation: The documentation as recorded by the JELANI mark accurately reflects the service I personally performed and the decisions made by me, OLGA JORDAN MD Status of Scribe Document: Viewed
[2018-07-01 16:40] LABS: ABS Basophils 0.1 10^3/ul (0-0.2); ABS Eosinophils 0.3 10^3/ul (0-0.6); ABS Lymphocytes 0.6 10^3/ul (1.0-4.8); ABS Monocytes 0.6 10^3/ul (0-0.8); ABS Neutrophils 3.8 10^3/ul (1.5-7.7); ABS Nucleated RBC 0 10^3/ul; Eosinophil % 5.8 %; Hematocrit 38 % (35-47); Hemoglobin 12.6 g/dl (12.0-16.0); Lymphocyte % 10.5 %; Mean Corpuscular HGB Conc 34 g/dl (31-36); Mean Corpuscular Hemoglobin 30 pg (27-31); Mean Corpuscular Volume 89 fL (80-97); Mean Platelet Volume 8.1 fL (7.4-10.4); Nucleated Red Blood Cells % 0; Platelet Count 270 10^3/ul (150-450); Red Blood Count 4.24 10^6/ul (4.00-5.40); Red Cell Distribution Width 16 % (10.5-15); White Blood Count 5.4 10^3/ul (3.5-10.8)
[2018-07-01 16:58] LABS: ALT 13 U/L (7-52); AST 14 U/L (13-39); Albumin 3.7 g/dL (3.2-5.2); Albumin/Globulin Ratio 1.7 (1-3); Alkaline Phosphatase 129 U/L (34-104); Anion Gap 6 mmol/L (2-11); BUN/Creatinine Ratio 5.2 (8-20); Blood Urea Nitrogen 3 mg/dL (6-24); CO2 Carbon Dioxide 27 mmol/L (22-32); Calcium 8.9 mg/dL (8.6-10.3); Chloride 109 mmol/L (101-111); EGFR Non-African American 110.5 (>60); Globulin 2.2 g/dL (2-4); Glucose 117 mg/dL (70-100); Potassium 3.6 mmol/L (3.5-5.0); Sodium 142 mmol/L (135-145); Total Protein 5.9 g/dL (6.4-8.9)
[2018-07-01 17:01] LABS: INR 1.1 (0.77-1.02)
[2018-07-01 17:17] LABS: Alcohol < 10 mg/dL (<10); Carbamazepine 6.7 mcg/mL (4.0-12.0); Lithium 0.18 mmol/L (0.6-1.2)
[2018-07-01 17:31] LABS: TSH (Thyroid Stimulating Horm) 0.06 mcIU/mL (0.34-5.60)
[2018-07-01] MEDS ORDERED: Polyethylene Glycol 3350* 17 GM PACKET PO PRN (17:52)
[2018-07-01] MEDS ORDERED: Acetaminophen TAB* 325 MG PO PRN (17:52)
--- NOTE | 2018-07-01 20:17 | HP ---
CC: Dr. Chiki Chandler * HISTORY AND PHYSICAL: DATE OF ADMISSION: 07/01/18 PRIMARY CARE PROVIDER: Dr. Chiki Chandler. REASON FOR THE ADMISSION: Confusion, not eating. HISTORY OF PRESENT ILLNESS: This is a 48-year-old female with a history of multiple sclerosis, with a recent diagnosis of seizures; started on carbamazepine, who now presents to the emergency room because the caregiver is concerned about her living alone. The caregiver at bedside reports that the patient is having memory issue with confusion, blurry vision, and seems to be weaker than her baseline. The patient also has occasional slurred speech. Of note, the patient has a history of multiple sclerosis and has optic neuritis, and has occasional slurred speech and blurry vision. This is not new for her. However, what is new for her is that the patient is having decreased appetite and would not eat unless she is prompted to eat. These were the concerns that got her caregiver concerned, so she was brought to the emergency room. Currently, the patient does not have any headaches, no new focal weakness. No chest pain, no shortness of breath. PAST MEDICAL HISTORY: 1. Multiple sclerosis. 2. Optic neuritis. 3. Depression. 4. Asthma. 5. Migraines. 6. Urinary incontinence. 7. History of left femoral DVT. 8. History of myositis of the hip/jaw. MEDICATIONS: Include: 1. Eucerin cream 1 g topically 3 times a day as needed. 2. Compazine 5 mg every 6 hours as needed. 3. Acetaminophen 650 mg every 4 hours as needed. 4. Ondansetron 4 mg every 6 hours as needed. 5. Oxycodone 10 mg every 8 hours as needed. 6. Viibryd 40 mg daily. 7. Baclofen 15 mg twice a day. 8. Potassium 20 mEq tablets daily. 9. Oxybutynin 10 mg at bedtime. 10. Oxybutynin 5 mg in the morning. 11. Omeprazole 20 mg daily. 12. Concerta extended release 36 mg daily. 13. Rexulti 1 mg daily. 14. Linzess 290 mcg daily. 15. [place] carbonate 900 mg at bedtime. 16. Carbamazepine 200 mg twice a day. 17. Levothyroxine 50 mcg. 18. Cyanocobalamin/folic acid tablet 1 lozenge daily. ALLERGIES: 1. BEE VENOM, HONEY BEE, and ONIONS. 2. SULFA causes unknown reaction. 3. Aspirin causes nausea. 4. PENICILLIN causes an intermediate unknown reaction. 5. CITRUS and DERIVATIVES give her allergies as well. FAMILY HISTORY: Mother of an [place] at age 60, mother also had diabetes, and father had hyperlipidemia. 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 Nonsmoker, no alcohol use, no drug use. REVIEW OF SYSTEMS: Otherwise, the 14-point review of systems was done and is negative. PHYSICAL EXAMINATION GENERAL APPEARANCE: This is a female, sitting on an ER stretcher, in no acute distress. VITAL SIGNS: Blood pressure of 121/81, heart rate of 82, respiratory rate of 16 , pulse ox of 100% on room air, temperature of 97.0 temporally. HEENT: Pupils equal, round, reactive to light. Atraumatic, normocephalic. Some nystagmus noted. NECK: There is no JVD, no thyromegaly. LUNGS: There is no tachypnea, no use of accessory muscles. Lungs are clear to auscultation bilaterally. CARDIOVASCULAR: There is no chest wall tenderness. Regular rate and rhythm. No murmurs, rubs, or gallops. ABDOMEN: Bowel sounds are normoactive in all 4 quadrants. Abdomen is soft, nontender, nondistended. EXTREMITIES: There is no lower extremity edema. NEUROLOGICAL: Alert and oriented x3. Motor is 4/5 at the lower extremity bilaterally. DTRs are 1+. There is bilateral nystagmus. DIAGNOSTIC STUDIES/LAB DATA: Labs: WBC of 5.4, hemoglobin of 12.6, hematocrit of 38, platelets of 270. INR 1.10, sodium of 142, potassium 3.6, chloride 109, bicarb 27, BUN 3, creatinine 0.58, alk phos 129. TSH of 0.06. IMPRESSION AND PLAN: 1. The patient is having a hard time taking care of herself: We will get a social work consult for placement. 2. History of multiple sclerosis: Continue home regimen. 3. Seizures: New diagnosis, was diagnosed at last admission. Continue carbamazepine. Continue neuro checks. 4. DVT prophylaxis with Lovenox subcu. 5. Physical therapy and occupational therapy has been ordered. 6. Hypothyroidism: Continue levothyroxine at home dose of 50 mcg. Of note, the TSH is low; however, the levothyroxine dose was just adjusted 3 days ago. At this point, we will monitor. [id number]/[facility] #: [id number] [facility]
[2018-07-01 20:39] LABS: Urine Appearance Clear; Urine Bilirubin Negative (Negative); Urine Blood Negative (Negative); Urine Color Yellow; Urine Glucose Negative (Negative); Urine Ketones Negative (Negative); Urine Nitrite Negative (Negative); Urine Protein Negative (Negative); Urine Specific Gravity 1.011 (1.010-1.030); Urine Urobilinogen Negative (Negative)
[2018-07-01] MEDS: NS 0.9% 1000 ML* 1,000 ML IV SCH (22:19)
[2018-07-01] MEDS: Amantadine CAP* 100 MG PO SCH (22:21)
[2018-07-01] MEDS: Lithium Carbonate ER* 450 MG TAB.ER PO SCH (22:22)
[2018-07-01] MEDS: Baclofen TAB* 10 MG PO SCH (22:23)
[2018-07-01] MEDS: carBAMazepine TAB(*) 200 MG PO SCH (22:24)
[2018-07-01] MEDS: Oxybutynin TAB* 5 MG PO SCH (22:28)
[2018-07-01] MEDS: Enoxaparin(*) 40 MG/0.4 ML SYR SUBCUT SCH (22:28)
[2018-07-02] MEDS: Levothyroxine TAB* 50 MCG TAB PO SCH (06:16)
[2018-07-02] MEDS: BREXPIPRAZOLE 1 MG PO SCH (07:35)
[2018-07-02] MEDS: LINACLOTIDE 290 MCG PO SCH (07:36)
[2018-07-02] MEDS: FOLIC ACID SL SCH (07:36)
[2018-07-02] MEDS: CYANOCOBALAMIN SL SCH (07:36)
[2018-07-02] MEDS: CMCS: Vilazodone (NF) 40 MG TAB PO SCH (07:41)
[2018-07-02] MEDS: Methylphenidate ER TAB* 18 MG PO SCH (07:41)
[2018-07-02] MEDS: Pantoprazole TAB * 40 MG TAB PO SCH (07:42)
[2018-07-02] MEDS: Oxybutynin TAB* 5 MG PO SCH ×2 (07:42→18:02)
[2018-07-02] MEDS: carBAMazepine TAB(*) 200 MG PO SCH ×2 (07:42→21:28)
[2018-07-02] MEDS: Baclofen TAB* 10 MG PO SCH ×2 (07:42→21:28)
[2018-07-02] MEDS: Amantadine CAP* 100 MG PO SCH ×2 (07:42→21:29)
[2018-07-02] MEDS: Potassium Chlor TAB* 10 MEQ TAB.ER PO SCH (07:42)
[2018-07-02] MEDS: oxyCODONE TAB* 5 MG TAB PO PRN (07:51)
[2018-07-02] MEDS ORDERED: Cyanocobalamin INJ * 1,000 MCG/ML VIAL 1 ML VIAL IM ONE (09:39)
[2018-07-02] MEDS: NS 0.9% 1000 ML* 1,000 ML IV SCH (10:59)
--- NOTE | 2018-07-02 13:25 | PN ---
Subjective Date of Service: 07/02/18 Interval History: She is saying that she is having double vision, which is different than her usual double vision, because it is lasting a little longer. Objective Active Medications: Acetaminophen (Tylenol Tab*) 650 mg PO Q4H PRN PRN Reason: FEVER/PAIN Amantadine HCl (Symmetrel Cap*) 100 mg PO BID [facility] Last Admin: 07/02/18 07:42 Dose: 100 mg Baclofen (Lioresal Tab*) 15 mg PO BID [facility] Last Admin: 07/02/18 07:42 Dose: 15 mg Brexpiprazole (Rexulti) 1 mg PO DAILY [facility] Last Admin: 07/02/18 07:35 Dose: Not Given Carbamazepine (Tegretol Tab(*)) 200 mg PO BID [facility] Last Admin: 07/02/18 07:42 Dose: 200 mg Enoxaparin Sodium (Lovenox(*)) 40 mg SUBCUT Q24H [facility] Last Admin: 07/01/18 22:28 Dose: 40 mg Sodium Chloride (Ns 0.9% 1000 Ml*) 1,000 mls @ 75 mls/hr IV PER RATE [facility] Last Admin: 07/02/18 10:59 Dose: 75 mls/hr Levothyroxine Sodium (Synthroid Tab*) 50 mcg PO DAILY@0600 [facility] Last Admin: 07/02/18 06:16 Dose: 50 mcg Linaclotide (Linzess (Nf)) 290 mcg PO DAILY [facility] Last Admin: 07/02/18 07:36 Dose: Not Given [place] Carbonate ([place] Carbonate Er Tab*) 900 mg PO BEDTIME [facility]; Protocol Last Admin: 07/01/18 22:22 Dose: 900 mg Methylphenidate HCl (Concerta Er Tab*) 36 mg PO DAILY [facility] Last Admin: 07/02/18 07:41 Dose: 36 mg Nft: Cyanocobalamin/Folic Acid [Ra Vit B -12 1,000 Mcg Lozenge] 1 Each) 1 each SL DAILY [facility] Last Admin: 07/02/18 07:36 Dose: Not Given Ondansetron HCl (Zofran Tab*) 4 mg PO Q6H PRN PRN Reason: NAUSEA Oxybutynin Chloride (Ditropan Tab*) 5 mg PO QAM [facility] Last Admin: 07/02/18 07:42 Dose: 5 mg Oxybutynin Chloride (Ditropan Tab*) 10 mg PO QPM [facility] Last Admin: 07/01/18 22:28 Dose: 10 mg Oxycodone HCl (Roxycodone Tab*) 10 mg PO Q8H PRN PRN Reason: PAIN Last Admin: 07/02/18 07:51 Dose: 10 mg Pantoprazole Sodium (Protonix Tab (Nf)) 40 mg PO DAILY [facility] Last Admin: 07/02/18 07:42 Dose: 40 mg Polyethylene Glycol/Electrolytes (Miralax*) 17 gm PO DAILY PRN PRN Reason: CONSTIPATION Potassium Chloride (Klor Con Er Tab*) 10 meq PO DAILY [facility] Last Admin: 07/02/18 07:42 Dose: 10 meq Vilazodone HCl (Viibryd (Nf)) 40 mg PO DAILY [facility] Last Admin: 07/02/18 07:41 Dose: 40 mg Vital Signs - 8 hr 07/02/18 07/02/18 07/02/18 07:49 07:51 08:00 Temperature 98.1 F Pulse Rate 76 Respiratory 16 18 16 Rate Blood Pressure 124/66 (mmHg) O2 Sat by Pulse 95 Oximetry 07/02/18 07/02/18 09:45 11:25 Temperature 97.5 F Pulse Rate 106 Respiratory 16 16 Rate Blood Pressure 123/56 (mmHg) O2 Sat by Pulse 99 Oximetry Oxygen Devices in Use Now: None Appearance: sitting on bed, not in distress Ears/Nose/Mouth/Throat: Mucous Membranes Moist Respiratory: Clear to Auscultation Cardiovascular: RRR Neurological: Alert and Oriented x 3 Result Diagrams: 07/01/18 16:30 07/01/18 16:30 Assess/Plan/Problems-Billing Assessment: - Patient Problems (1) Weakness Current Visit: Yes Status: Acute Code(s): R53.1 - WEAKNESS SNOMED Code(s) : 00398988 Comment: acute on chronic PT eval social services assistant for placement (2) Seizure Current Visit: Yes Status: Acute Code(s): R56.9 - UNSPECIFIED CONVULSIONS SNOMED Code(s): 04147796 Comment: recent diagnosis of seizure, continue carbamazepine (3) Vitamin B12 deficiency Current Visit: Yes Status: Acute Code(s): E53.8 - DEFICIENCY OF OTHER SPECIFIED B GROUP VITAMINS SNOMED Code(s): 036052846 Comment: on supplement (4) H/O multiple sclerosis Current Visit: No Status: Chronic Code(s): Z86.69 - PERSONAL HISTORY OF DIS OF THE NERVOUS SYS AND SENSE ORGANS SNOMED Code(s): 745289433 Comment: Not active at this time. Tecf[employer]a on hold becuase of myositis (5) Hypothyroidism Current Visit: No Status: Chronic Code(s): E03.9 - HYPOTHYROIDISM, UNSPECIFIED SNOMED Code(s): 67032091 Comment: on levothyroxine 50mcg (recently decreased) (6) DVT prophylaxis Current Visit: No Status: Acute Priority: Medium Code(s): VVQ7800 - SNOMED Code(s): 852754934 Comment: history of DVT. continue lovenox subQ Status and Disposition: social services assistant/CM working on placement
[2018-07-02] MEDS: Enoxaparin(*) 40 MG/0.4 ML SYR SUBCUT SCH (18:02)
--- NOTE | 2018-07-02 19:26 | CONS ---
NEUROLOGY CONSULTATION NOTE: DATE OF CONSULT: 07/02/18 CONSULTING PROVIDER: Dr. Brittany Zambrano. REASON FOR CONSULT: The patient is complaining of double vision. CHIEF COMPLAINT: Memory problems. HISTORY OF PRESENT ILLNESS: Ms. Cisneros is a pleasant right-handed female with history of secondary pr ogressive multiple sclerosis who sees Dr. Lara, who has significant neurological disability related t o multiple sclerosis, who has symptoms of chronic double vision, paraparesis, and memory problems. T he patient stated to me today that she has chronic double vision. This was not the problem that she is complaining about. The patient stated that her memory has not improved. She keeps having trouble with memory, especially when she wakes up. She forgets the previous night early in the morning and cannot recall what she did yesterday. Apparently, this is a problem that started in the hospital. S he denied any new weakness. She denied any headaches. I recently evaluated Ms. Cisneros, last seen on 06/29/18 where she was hospitalized for seizures. The p atient was on Ampyra. She has been taken off Ampyra. She was initially started on Keppra, but given her fogginess and irritability, she was switched on to carbamazepine. She is currently on 200 mg p. o. twice daily. The patient had an EEG completed today that showed increase in diffuse slowing when compared to the p revious study done on 06/27/18. 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 MEDICATIONS: 1. Eucerin cream. 2. Compazine 5 mg every 6 hours. 3. Acetaminophen 650 mg every 4 hours. 4. Ondansetron 4 mg every 6 hours. 5. Oxycodone 10 mg every 8 hours. 6. Viibryd 40 mg daily. 7. Baclofen 15 mg twice a day. 8. Potassium 20 mEq tablets daily. 9. Oxybutynin 10 mg at bedtime. 10. Omeprazole 20 mg daily. 11. Concerta 36 mg daily. 13. Rexulti 1 mg daily. 14. Linzess 290 mcg daily. 15. [place] carbonate 900 mg at bedtime. 16. Carbamazepine 200 mg twice daily. 17. Levothyroxine 50 mcg. 18. Cyanocobalamin/folic acid tablet. ALLERGIES: BEE VENOM, HONEY BEE, ONION, SULFA, ASPIRIN, PENICILLIN, CITRUS. FAMILY HISTORY: Mother of a myocardial infarction. Mother also has diabetes and father has hyp ertension. SOCIAL HISTORY: The patient is disabled. She lives at her home with a caregiver. She has an 11-year -old son. She is . Nonsmoker. No alcohol use. REVIEW OF SYSTEMS: A 14-point review of systems was obtained and otherwise negative except for what was mentioned in the HPI. PHYSICAL EXAM: Vitals: Temperature of 98, heart rate of 103, respiratory rate of 14, oxygen saturat ion of 99%, blood pressure of 123/58. General: Well-nourished, well-developed female, in no acute d istress. HEENT: Normocephalic, atraumatic. Sclerae anicteric. Neck is supple. No nuchal rigidity. Chest: Clear to auscultation bilaterally. Cardiovascular: Regular rate and rhythm without any mu rmurs or rubs. Extremities: No clubbing or cyanosis. Skin: Tattoos were noted. Neurological Exam ination: The patient is awake, alert, oriented to person, place, time, and general circumstances. S he is slightly irritable and agitated. She has mild psychomotor slowing. Speech: She has mild dysar thria. Cranial Nerves: Pupils equal, round, and reactive to light. She has bilateral CYNDY. No faci al asymmetry. Motor, paraparesis graded as 2/3/5 with increased spasticity with 4/5 strength in the upper extremities. 4+ in the distal hands bilaterally. Sensation is intact to light touch throughout . Deep tendon reflexes 2+ in the upper extremity, 3+ at the knees, 3+ at the ankles with nonsustaine d ankle clonus bilaterally. She has extensive plantar response bilaterally. She has dysmetria to fi [id number] on the left. Gait: She is paraparetic with spasticity in the lower extremities bilater ally. DIAGNOSTIC STUDIES/LAB DATA: WBC of 5.4, hemoglobin of 12, hematocrit of 38, platelet count of 270,0 00. INR of 1.10. Sodium 142, potassium is 3.6, chloride 109, carbon dioxide 27, BUN of 3, creatinin e of 0.58. TSH is 0.06. Free T4 was recently checked and it was normal at 1.09. ASSESSMENT: Ms. Karla Cisneros is a 48-year-old pleasant female, who unfortunately has secondary prog ressive multiple sclerosis followed up by Dr. Lara and at the [facility]. She presents with increasing memory problems for the past 1 week. I discussed the case with Dr. Lara. The patient does have a history of cognitive impairment. Given the recent diagnosis of a low vitamin B12 deficiency, which in addition to her polypharmacy can definitely contribute to her memory distur bance. She does have an actual physiologic slowing on the EEG which is likely as a result of all the se medications that she has currently taken in addition to the multifocal demyelinating plaques that she most likely has. Therefore, I recommend continuing the vitamin B12 supplementation, which would h opefully improve her memory, but at times this may be irreversible. She will be evaluated by Dr. Sohail lew tomorrow to see if she would need any increase in the carbamazepine, which I probably will not gerald mmend given that it could also contribute to her cognitive decline. The patient is waiting on a reha bilitation bed. There is no further acute neurological workup at this time. Please monitor for seiz ure activity. The patient denied any new double vision on evaluation today, which initially this con sultation was obtained to evaluate for the double vision. TIME SPENT: Fifty five minutes obtaining history, examining the patient, and providing reassurance a nd counseling. [id number]/[facility] #: [id number]
[2018-07-02] MEDS: Lithium Carbonate ER* 450 MG TAB.ER PO SCH (21:29)
--- NOTE | 2018-07-02 21:30 | EEG ---
ELECTROENCEPHALOGRAPHY: DATE OF STUDY: 07/02/18 DATE READ: 07/02/18 ORDERED BY: Felicia Hamm. CLINICAL PROBLEM: Mrs. Cisneros is a 48-year-old female who has history of secondary progressive multip le sclerosis, who has episodes of increase in memory problems. This EEG was obtained to evaluate for epileptiform abnormalities or electrographic seizures. DURATION: 5904-4480. CLINICAL STATE: Waking and drowsy. REPORT: The background consisted of a mixed frequency slowing in the delta and theta range with some areas of retained organization and clearly defined anterior- posterior voltage. There were multiple areas of diffuse 2-3 Hz delta slowing lasting for 1-3 seconds seen throughout the recording. There were rare sharp discharges in the central region maximal at FZ and CZ with the morphology of a spike and slow wave activity. There were no electrographic seizures. Attenuation of the occipital rhythm accompanied drowsiness. Hyperventilation and photic stimulation were not performed. Throughout the recording, there were no electrographic seizures. CLINICAL IMPRESSION: This is an abnormal waking and drowsy EEG due to diffuse polymorphic slowing wi th superimposed diffuse delta slowing lasting for 1-3 seconds and rare sharp spike and slow wave disc harges in the central region. Otherwise, there were some areas where there were discernable reactivi ty and organization. These findings are suggestive of mild-moderate nonspecific encephalopathy with a n increased epileptogenic potential emanating from the central region. Clinical correlation is recom mended. [id number]/[id number] #: [id number]
[2018-07-03] MEDS: NS 0.9% 1000 ML* 1,000 ML IV SCH (03:35)
[2018-07-03] MEDS: Levothyroxine TAB* 50 MCG TAB PO SCH (05:17)
[2018-07-03] MEDS: Baclofen TAB* 10 MG PO SCH ×2 (09:46→20:14)
[2018-07-03] MEDS: Potassium Chlor TAB* 10 MEQ TAB.ER PO SCH (09:48)
[2018-07-03] MEDS: Methylphenidate ER TAB* 18 MG PO SCH (09:48)
[2018-07-03] MEDS: Oxybutynin TAB* 5 MG PO SCH ×2 (09:48→17:08)
[2018-07-03] MEDS: Amantadine CAP* 100 MG PO SCH ×2 (09:49→20:14)
[2018-07-03] MEDS: CMCS: Vilazodone (NF) 40 MG TAB PO SCH (09:49)
[2018-07-03] MEDS: carBAMazepine TAB(*) 200 MG PO SCH ×2 (09:50→20:14)
[2018-07-03] MEDS: BREXPIPRAZOLE 1 MG PO SCH (09:51)
[2018-07-03] MEDS: LINACLOTIDE 290 MCG PO SCH (09:51)
[2018-07-03] MEDS: Pantoprazole TAB * 40 MG TAB PO SCH (09:51)
[2018-07-03] MEDS: FOLIC ACID SL SCH (09:51)
[2018-07-03] MEDS: CYANOCOBALAMIN SL SCH (09:51)
--- NOTE | 2018-07-03 12:49 | PN ---
Subjective Date of Service: 07/03/18 Interval History: Having bouts of confusion Objective Active Medications: Acetaminophen (Tylenol Tab*) 650 mg PO Q4H PRN PRN Reason: FEVER/PAIN Amantadine HCl (Symmetrel Cap*) 100 mg PO BID [facility] Last Admin: 07/03/18 09:49 Dose: 100 mg Baclofen (Lioresal Tab*) 15 mg PO BID [facility] Last Admin: 07/03/18 09:46 Dose: 15 mg Brexpiprazole (Rexulti) 1 mg PO DAILY [facility] Last Admin: 07/03/18 09:51 Dose: Not Given Carbamazepine (Tegretol Tab(*)) 200 mg PO BID [facility] Last Admin: 07/03/18 09:50 Dose: 200 mg Enoxaparin Sodium (Lovenox(*)) 40 mg SUBCUT Q24H [facility] Last Admin: 07/02/18 18:02 Dose: 40 mg Sodium Chloride (Ns 0.9% 1000 Ml*) 1,000 mls @ 75 mls/hr IV PER RATE [facility] Last Admin: 07/03/18 03:35 Dose: 75 mls/hr Levothyroxine Sodium (Synthroid Tab*) 50 mcg PO DAILY@0600 [facility] Last Admin: 07/03/18 05:17 Dose: 50 mcg Linaclotide (Linzess (Nf)) 290 mcg PO DAILY [facility] Last Admin: 07/03/18 09:51 Dose: Not Given Sabula Carbonate (Sabula Carbonate Er Tab*) 900 mg PO BEDTIME [facility]; Protocol Last Admin: 07/02/18 21:29 Dose: 900 mg Methylphenidate HCl (Concerta Er Tab*) 36 mg PO DAILY [facility] Last Admin: 07/03/18 09:48 Dose: 36 mg Nft: Cyanocobalamin/Folic Acid [Ra Vit B -12 1,000 Mcg Lozenge] 1 Each) 1 each SL DAILY [facility] Last Admin: 07/03/18 09:51 Dose: Not Given Ondansetron HCl (Zofran Tab*) 4 mg PO Q6H PRN PRN Reason: NAUSEA Oxybutynin Chloride (Ditropan Tab*) 5 mg PO QAM [facility] Last Admin: 07/03/18 09:48 Dose: 5 mg Oxybutynin Chloride (Ditropan Tab*) 10 mg PO QPM [facility] Last Admin: 07/02/18 18:02 Dose: 10 mg Oxycodone HCl (Roxycodone Tab*) 10 mg PO Q8H PRN PRN Reason: PAIN Last Admin: 07/02/18 07:51 Dose: 10 mg Pantoprazole Sodium (Protonix Tab (Nf)) 40 mg PO DAILY [facility] Last Admin: 07/03/18 09:51 Dose: 40 mg Polyethylene Glycol/Electrolytes (Miralax*) 17 gm PO DAILY PRN PRN Reason: CONSTIPATION Potassium Chloride (Klor Con Er Tab*) 10 meq PO DAILY [facility] Last Admin: 07/03/18 09:48 Dose: 10 meq Vilazodone HCl (Viibryd (Nf)) 40 mg PO DAILY [facility] Last Admin: 07/03/18 09:49 Dose: 40 mg Vital Signs - 8 hr 07/03/18 07/03/18 07/03/18 07:32 08:00 11:13 Temperature 98.3 F 97.9 F Pulse Rate 79 95 Respiratory 16 17 17 Rate Blood Pressure 121/68 117/57 (mmHg) O2 Sat by Pulse 95 100 Oximetry Oxygen Devices in Use Now: None Appearance: Lying in bed, not in distress Eyes: PERRLA Respiratory: Clear to Auscultation Cardiovascular: RRR Neurological: Alert and Oriented x 3 Result Diagrams: 07/01/18 16:30 07/01/18 16:30 Assess/Plan/Problems-Billing Assessment: - Patient Problems (1) Weakness Current Visit: Yes Status: Acute Code(s): R53.1 - WEAKNESS SNOMED Code(s) : 97802603 Comment: acute on chronic PT eval certified social workers in health care for placement (2) Seizure Current Visit: Yes Status: Acute Code(s): R56.9 - UNSPECIFIED CONVULSIONS SNOMED Code(s): 17027331 Comment: recent diagnosis of seizure, continue carbamazepine (3) Vitamin B12 deficiency Current Visit: Yes Status: Acute Code(s): E53.8 - DEFICIENCY OF OTHER SPECIFIED B GROUP VITAMINS SNOMED Code(s): 490746608 Comment: on supplement (4) H/O multiple sclerosis Current Visit: No Status: Chronic Code(s): Z86.69 - PERSONAL HISTORY OF DIS OF THE NERVOUS SYS AND SENSE ORGANS SNOMED Code(s): 506426275 Comment: Not active at this time. Tecfidera on hold becuase of myositis (5) Hypothyroidism Current Visit: No Status: Chronic Code(s): E03.9 - HYPOTHYROIDISM, UNSPECIFIED SNOMED Code(s): 34917684 Comment: on levothyroxine 50mcg (recently decreased) (6) DVT prophylaxis Current Visit: No Status: Acute Priority: Medium Code(s): GOJ1452 - SNOMED Code(s): 285359756 Comment: history of DVT. continue lovenox subQ Status and Disposition: certified social workers in health care/CM working on placement
[2018-07-03] MEDS: Enoxaparin(*) 40 MG/0.4 ML SYR SUBCUT SCH (17:09)
[2018-07-03] MEDS: Lithium Carbonate ER* 450 MG TAB.ER PO SCH (20:15)
[2018-07-03] MEDS: Ondansetron TAB* 4 MG PO PRN (20:35)
[2018-07-04] MEDS: Levothyroxine TAB* 50 MCG TAB PO SCH (05:56)
[2018-07-04] MEDS: Oxybutynin TAB* 5 MG PO SCH ×2 (10:12→17:09)
[2018-07-04] MEDS: CMCS: Vilazodone (NF) 40 MG TAB PO SCH (10:12)
[2018-07-04] MEDS: carBAMazepine TAB(*) 200 MG PO SCH ×2 (10:12→20:29)
[2018-07-04] MEDS: Methylphenidate ER TAB* 18 MG PO SCH (10:12)
[2018-07-04] MEDS: Potassium Chlor TAB* 10 MEQ TAB.ER PO SCH (10:13)
[2018-07-04] MEDS: Amantadine CAP* 100 MG PO SCH ×2 (10:13→20:29)
[2018-07-04] MEDS: Baclofen TAB* 10 MG PO SCH ×2 (10:13→20:29)
[2018-07-04] MEDS: Pantoprazole TAB * 40 MG TAB PO SCH (10:14)
[2018-07-04] MEDS: BREXPIPRAZOLE 1 MG PO SCH (10:14)
[2018-07-04] MEDS: FOLIC ACID SL SCH (10:14)
[2018-07-04] MEDS: CYANOCOBALAMIN SL SCH (10:14)
[2018-07-04] MEDS: LINACLOTIDE 290 MCG PO SCH (10:14)
[2018-07-04] MEDS: oxyCODONE TAB* 5 MG TAB PO PRN (14:34)
[2018-07-04] MEDS: Enoxaparin(*) 40 MG/0.4 ML SYR SUBCUT SCH (17:08)
--- NOTE | 2018-07-04 19:03 | PN ---
Subjective Date of Service: 07/04/18 Interval History: Patient continues to report weakness and short term memory issues, states that she is unable to remember events. Ex- into see patient today, states that patient wants to change healthy care proxy,but patient is confused to time, oriented to place and name. patient reports difficulty remembering. patient denies chest pain or shortness of breath . denies n/v/d. denies abd pain. c/o weakness. Family History: Unchanged from Admission Social History: Unchanged from Admission Past Medical History: Unchanged from Admission Objective Active Medications: Acetaminophen (Tylenol Tab*) 650 mg PO Q4H PRN PRN Reason: FEVER/PAIN Amantadine HCl (Symmetrel Cap*) 100 mg PO BID [facility] Last Admin: 07/04/18 10:13 Dose: 100 mg Baclofen (Lioresal Tab*) 15 mg PO BID [facility] Last Admin: 07/04/18 10:13 Dose: 15 mg Brexpiprazole (Rexulti) 1 mg PO DAILY [facility] Last Admin: 07/04/18 10:14 Dose: Not Given Carbamazepine (Tegretol Tab(*)) 200 mg PO BID [facility] Last Admin: 07/04/18 10:12 Dose: 200 mg Enoxaparin Sodium (Lovenox(*)) 40 mg SUBCUT Q24H [facility] Last Admin: 07/04/18 17:08 Dose: 40 mg Heparin Sodium (Porcine) (Heparin Flush Picc/Ml/Cvc(*)) 1 ml FLUSH 0600,1800 [facility]; Protocol Last Admin: 07/04/18 17:10 Dose: 1 ml Levothyroxine Sodium (Synthroid Tab*) 50 mcg PO DAILY@0600 [facility] Last Admin: 07/04/18 05:56 Dose: 50 mcg Linaclotide (Linzess (Nf)) 290 mcg PO DAILY [facility] Last Admin: 07/04/18 10:14 Dose: Not Given Aquilla Carbonate (Aquilla Carbonate Er Tab*) 900 mg PO BEDTIME [facility]; Protocol Last Admin: 07/03/18 20:15 Dose: 900 mg Methylphenidate HCl (Concerta Er Tab*) 36 mg PO DAILY [facility] Last Admin: 07/04/18 10:12 Dose: 36 mg Nft: Cyanocobalamin/Folic Acid [Ra Vit B -12 1,000 Mcg Lozenge] 1 Each) 1 each SL DAILY [facility] Last Admin: 07/04/18 10:14 Dose: Not Given Ondansetron HCl (Zofran Tab*) 4 mg PO Q6H PRN PRN Reason: NAUSEA Last Admin: 07/03/18 20:35 Dose: 4 mg Oxybutynin Chloride (Ditropan Tab*) 5 mg PO QAM [facility] Last Admin: 07/04/18 10:12 Dose: 5 mg Oxybutynin Chloride (Ditropan Tab*) 10 mg PO QPM [facility] Last Admin: 07/04/18 17:09 Dose: 10 mg Oxycodone HCl (Roxycodone Tab*) 10 mg PO Q8H PRN PRN Reason: PAIN Last Admin: 07/04/18 14:34 Dose: 10 mg Pantoprazole Sodium (Protonix Tab (Nf)) 40 mg PO DAILY [facility] Last Admin: 07/04/18 10:14 Dose: 40 mg Polyethylene Glycol/Electrolytes (Miralax*) 17 gm PO DAILY PRN PRN Reason: CONSTIPATION Potassium Chloride (Klor Con Er Tab*) 10 meq PO DAILY [facility] Last Admin: 07/04/18 10:13 Dose: 10 meq Vilazodone HCl (Viibryd (Nf)) 40 mg PO DAILY [facility] Last Admin: 07/04/18 10:12 Dose: 40 mg Vital Signs - 8 hr 07/04/18 07/04/18 07/04/18 11:11 14:34 15:39 Temperature 97.9 F 98.0 F Pulse Rate 89 104 Respiratory 16 16 18 Rate Blood Pressure 128/51 125/67 (mmHg) O2 Sat by Pulse 98 95 Oximetry 07/04/18 17:07 Temperature Pulse Rate Respiratory 16 Rate Blood Pressure (mmHg) O2 Sat by Pulse Oximetry Oxygen Devices in Use Now: None Appearance: alert resting in bed, no acute distress Ears/Nose/Mouth/Throat: Mucous Membranes Moist Neck: NL Appearance and Movements; NL JVP Respiratory: Symmetrical Chest Expansion and Respiratory Effort, Clear to Auscultation Cardiovascular: NL Sounds; No Murmurs; No JVD Abdominal: NL Sounds; No Tenderness; No Distention Extremities: No Edema Skin: No Rash or Ulcers Neurological: - - oriented to place and name, confused to time Nutrition: Taking PO's Result Diagrams: 07/01/18 16:30 07/05/18 16:18 Assess/Plan/Problems-Billing Assessment: Ms. Cisneros is a 48 y.o female with pmhx of MS, sz, hypothyroid who presented to the ER for evaluation of weakness. - Patient Problems (1) Weakness Current Visit: Yes Status: Acute Code(s): R53.1 - WEAKNESS SNOMED Code(s) : 05651090 Comment: acute on chronic PT eval social worker palliative care for placement (2) Seizure Current Visit: Yes Status: Acute Code(s): R56.9 - UNSPECIFIED CONVULSIONS SNOMED Code(s): 03905118 Comment: recent diagnosis of seizure, continue carbamazepine (3) Multiple sclerosis Current Visit: No Status: Chronic Code(s): G35 - MULTIPLE SCLEROSIS SNOMED Code(s): 43525833 Comment: No current exacerbation apparent. Management deferred to neurology. will need to follow up with Dr. Lara as outpatient - spoke to Dr. Lara today - will need capacity evaluation prior to signing new health care proxy and POA forms- d/t confusion (4) History of DVT (deep vein thrombosis) Current Visit: No Status: Chronic Code(s): Z86.718 - PERSONAL HISTORY OF OTHER VENOUS THROMBOSIS AND EMBOLISM SNOMED Code(s): 923585269 Comment: lovenox subq for dvt prop (5) Hypothyroidism Current Visit: No Status: Chronic Code(s): E03.9 - HYPOTHYROIDISM, UNSPECIFIED SNOMED Code(s): 02983366 Comment: on levothyroxine 50mcg (recently decreased) repeat level in 4-6 weeks (6) DVT prophylaxis Current Visit: No Status: Acute Priority: Medium Code(s): [id number] - SNOMED Code(s): 021120591 Comment: history of DVT. continue lovenox subQ (7) DNR (do not resuscitate) Current Visit: No Status: Acute Status and Disposition: social worker palliative care/CM working on placement
[2018-07-04] MEDS: Lithium Carbonate ER* 450 MG TAB.ER PO SCH (20:28)
[2018-07-05] MEDS: Levothyroxine TAB* 50 MCG TAB PO SCH (06:21)
[2018-07-05] MEDS: LINACLOTIDE 290 MCG PO SCH (09:26)
[2018-07-05] MEDS: CYANOCOBALAMIN SL SCH (09:26)
[2018-07-05] MEDS: FOLIC ACID SL SCH (09:26)
[2018-07-05] MEDS: BREXPIPRAZOLE 1 MG PO SCH (09:26)
[2018-07-05] MEDS: Baclofen TAB* 10 MG PO SCH ×2 (09:36→20:49)
[2018-07-05] MEDS: Oxybutynin TAB* 5 MG PO SCH ×2 (09:37→16:28)
[2018-07-05] MEDS: CMCS: Vilazodone (NF) 40 MG TAB PO SCH (09:37)
[2018-07-05] MEDS: Methylphenidate ER TAB* 18 MG PO SCH (09:37)
[2018-07-05] MEDS: Potassium Chlor TAB* 10 MEQ TAB.ER PO SCH (09:37)
[2018-07-05] MEDS: Pantoprazole TAB * 40 MG TAB PO SCH (09:37)
[2018-07-05] MEDS: carBAMazepine TAB(*) 200 MG PO SCH ×2 (09:37→20:49)
[2018-07-05] MEDS: Amantadine CAP* 100 MG PO SCH ×2 (09:37→20:49)
--- NOTE | 2018-07-05 12:40 | CONSULT ---
Consult Consult: Consult for Medical Decision Making Capacity S: Psychiatry is asked to evaluate capacity in this 48 year old white female with history of Multiple sclerosis. She is admitted to the Hospitalist service for seizures and confusion. Sources from collateral information( Meme from [facility] telephonic case manager that was visiting for an evaluation) indicated that her current presentation is a deviation from her baseline. She is wishing to change her health care proxy to her ex Bonny. Meme has known her for 2 years and mentioned that her choice is consistent with the wishes she has voiced in the past. The patient said she wanted to appoint Bonny to be her proxy because she has her best interest in mind. This is also consistent with the information of her telephonic case manager. The patient mentioned that she doesnt want to go to [facility] and that she knows that Bonny would be the one to make the best decisions for her. When asked what the risk of changing her health care proxy would be she verbalized that she would go somewhere she wouldnt be happy. O: 48 year old white female appears stated age , dressed in patient gown, calm , cooperative. Constricted affect. Denies SI or HI. Insight and judgment fair . difficulty maintaining alertness and knows current place, year and current president. Did not know the month , day of week. 1/3 word delayed recall. Unable to perform clock drawing. A/P: Capacity: The patient has the capacity specifically to change her health care proxy to Bonny her ex-. She is able to make a choice and verbalize the risks and benefits . Her choice is consistent with her wishes in the past, before a deviation in her baseline. Psychiatry will sign off for now. Capacity is subject to change at any time, feel free to consult Psychiatry again in the event of any changes. Dr. Valencia the consulting Physician was contacted before and after the consult was completed and informed of these findings. Thank you for the consult.
--- NOTE | 2018-07-05 15:15 | PN ---
Subjective Date of Service: 07/05/18 Length of Stay: 4 Days Interval History: The patient was readmitted several days ago for worsening memory issues and the family was very concerned that she was unable to care for herself. She was recently admitted with seizure like activity and it was thought that the lowered seizure threshold was likely related to the Ampyra which had been started for gait issues at the [facility]. She is followed by the MS department at [facility] and diagnosed with secondary progressive MS, most recently on Cytoxan but we had to stop that due to bleeding in the urine. Since admission, she continues to have significant memory problems, fatigue, weakness. There is some concern about her capacity to make decisions and there have been some psychosocial family issues regarding health care proxy. Family History: Unchanged from Admission Social History: Unchanged from Admission Past Medical History: Unchanged from Admission Objective Active Medications: Acetaminophen (Tylenol Tab*) 650 mg PO Q4H PRN PRN Reason: FEVER/PAIN Amantadine HCl (Symmetrel Cap*) 100 mg PO BID [facility] Last Admin: 07/05/18 09:37 Dose: 100 mg Baclofen (Lioresal Tab*) 15 mg PO BID [facility] Last Admin: 07/05/18 09:36 Dose: 15 mg Brexpiprazole (Rexulti) 1 mg PO DAILY [facility] Last Admin: 07/05/18 09:26 Dose: Not Given Carbamazepine (Tegretol Tab(*)) 200 mg PO BID [facility] Last Admin: 07/05/18 09:37 Dose: 200 mg Enoxaparin Sodium (Lovenox(*)) 40 mg SUBCUT Q24H [facility] Last Admin: 07/04/18 17:08 Dose: 40 mg Heparin Sodium (Porcine) (Heparin Flush Port (Ivad)) 5 ml FLUSH DAILY [facility]; Protocol Last Admin: 07/05/18 09:26 Dose: Not Given Levothyroxine Sodium (Synthroid Tab*) 50 mcg PO DAILY@0600 [facility] Last Admin: 07/05/18 06:21 Dose: 50 mcg Linaclotide (Linzess (Nf)) 290 mcg PO DAILY [facility] Last Admin: 07/05/18 09:26 Dose: Not Given [place] Carbonate ([place] Carbonate Er Tab*) 900 mg PO BEDTIME [facility]; Protocol Last Admin: 07/04/18 20:28 Dose: 900 mg Methylphenidate HCl (Concerta Er Tab*) 36 mg PO DAILY [facility] Last Admin: 07/05/18 09:37 Dose: 36 mg Nft: Cyanocobalamin/Folic Acid [Ra Vit B -12 1,000 Mcg Lozenge] 1 Each) 1 each SL DAILY [facility] Last Admin: 07/05/18 09:26 Dose: Not Given Ondansetron HCl (Zofran Tab*) 4 mg PO Q6H PRN PRN Reason: NAUSEA Last Admin: 07/03/18 20:35 Dose: 4 mg Oxybutynin Chloride (Ditropan Tab*) 5 mg PO QAM [facility] Last Admin: 07/05/18 09:37 Dose: 5 mg Oxybutynin Chloride (Ditropan Tab*) 10 mg PO QPM [facility] Last Admin: 07/04/18 17:09 Dose: 10 mg Oxycodone HCl (Roxycodone Tab*) 10 mg PO Q8H PRN PRN Reason: PAIN Last Admin: 07/04/18 14:34 Dose: 10 mg Pantoprazole Sodium (Protonix Tab (Nf)) 40 mg PO DAILY [facility] Last Admin: 07/05/18 09:37 Dose: 40 mg Polyethylene Glycol/Electrolytes (Miralax*) 17 gm PO DAILY PRN PRN Reason: CONSTIPATION Potassium Chloride (Klor Con Er Tab*) 10 meq PO DAILY [facility] Last Admin: 07/05/18 09:37 Dose: 10 meq Vilazodone HCl (Viibryd (Nf)) 40 mg PO DAILY [facility] Last Admin: 07/05/18 09:37 Dose: 40 mg Vital Signs 07/04/18 07/04/18 07/04/18 15:39 17:07 19:22 Temperature 98.0 F 98.1 F Pulse Rate 104 91 Respiratory 18 16 18 Rate Blood Pressure 125/67 117/65 (mmHg) O2 Sat by Pulse 95 93 Oximetry 07/04/18 07/04/18 07/05/18 20:00 23:15 03:24 Temperature 97.6 F 98.2 F Pulse Rate 93 93 Respiratory 18 16 18 Rate Blood Pressure 103/58 117/55 (mmHg) O2 Sat by Pulse 94 93 Oximetry 07/05/18 07/05/18 07/05/18 08:37 09:52 11:16 Temperature 98.3 F 98.5 F Pulse Rate 89 81 Respiratory 16 16 16 Rate Blood Pressure 121/64 124/67 (mmHg) O2 Sat by Pulse 95 Oximetry Intake and Output Last 24 Hours 07/03/18 07/04/18 07/05/18 07/06/18 06:59 06:59 06:59 06:59 Intake Total 821 1931 540 0 Output Total 800 200 Balance 21 1931 340 0 Intake: IV Fluids 481 1931 NS (0.9%) 256 966 Oral 340 0 540 0 Output: Urine 800 200 Other: Estimated Void Medium Large Large Medium Date of Last Bowel 07/02/18 Movement # Bowel Movements 1 0 Estimated Stool Amount Medium # Voids 1 1 2 Oxygen Devices in Use Now: None Neurology Exam: General: HEENT: Normocephalic/atraumatic, sclera anicteric, mucous membranes moist Neck: Supple Chest: Clear to auscultation bilaterally Cardiovascular: Regular rate and rhythm without murmurs, rubs, gallops Abdomen: Soft, nontender/nondistended Extremities: No clubbing, cyanosis, or edema Neurological Findings: Awake but somnolent, oriented to person, very slow to answer Speech: Hypophonic, slow to answer, no dysarthria Cranial Nerve: PEERL, EOM intact, VFF, no nystagmus, face symmetric bilaterally , palate elevates symmetrically, tongue midline, SCM and Trapezius s/s. Motor: 4/5 strength UEs bilaterally. 3/5 Proximal and distal LEs Sensation: Difficult to assess but seems down throughout in the legs Deep Tendon Reflex: 2+ R Patella, 1+ Left patellla, 2+ right bc, 1+ lefty bc No tremors Unable to ambulate Result Diagrams: 07/01/18 16:30 07/05/18 16:18 Assessment/Plan Assessment: 48 year old with a history of secondary progressive MS, followed by me and [facility]. Most recent treatment with Cytoxan but stopped due to blood in urine, concern for hemorrhagic cystitis, with urology evaluation pending. She was admitted several days ago with worsening memory, seizure like activity, thought secondary to her extensive MS as well as Ampyra which had been started. She is now on Tegretol after a trial of Keppra. No further seizure activity but remains very weak, fatigued, confused. I suspect that she has had an acute worsening of her MS. The plan is to repeat an MRI although I am not sure we will see any new lesions with secondary progressive. She has severe disease with baseline disability, inability to ambulate and some baseline cognitive difficulties. I am going to try a round of Solumedrol and see how she responds. I spoke at length with the family today and updated them on our plans. They realize she may have little improvement with the steroids. I am going to check a tegretol level in am to rule out toxicity. Tegretol can cause cognitive difficulties. The short term plan is to try to get her to a facility where she can get rehab. Retirement plans are less clear. I will continue to follow along.
[2018-07-05] MEDS ORDERED: methylPREDNISolone SOD SUCC* 1000 MG ML VIAL IVPB ONE (15:49)
[2018-07-05] MEDS ORDERED: methylPREDNISolone SOD SUCC* 500 MG in NS 0.9% 100 ML* 100 ML IVPB ONE (16:00)
[2018-07-05] MEDS: Enoxaparin(*) 40 MG/0.4 ML SYR SUBCUT SCH (16:28)
[2018-07-05] MEDS: oxyCODONE TAB* 5 MG TAB PO PRN (16:46)
[2018-07-05 16:52] LABS: Calcium 9.3 mg/dL (8.6-10.3); EGFR Non-African American 87.5 (>60)
[2018-07-05] MEDS ORDERED: Gadoteridol* (CONTRAST) 279.3 MG/ML 10 ML IV ONE (17:25)
--- NOTE | 2018-07-05 18:05 | PN ---
Subjective Date of Service: 07/05/18 Interval History: patient continues to have memory issues. Patient asked about who she would like to appoint to be her healthy care proxy, she reports that she would like "Bonny". Patient had evaluation by Psych today who reports given the fact she has stated to her field case manager Meme from [facility] that she would like Bonny to be her health care proxy in the past prior to having a decline from her baseline, that this would be appropriate. Patient denies chest pain or shortness of breath. denies abd pain n/v/d. Discussed with Patient's Alarm Adjuster Farnaz Sullivan concerns regarding signing power of assistant district attorney. Voiced concerns over patient reports of short term memory issues and increased confusion, patient not knowing month or year. Dr. Bustamante from psychiatry also present during the conversation with the cash room clerkBonny and this sba underwriter. It was determined that she would be able to signed POA. Family History: Unchanged from Admission Social History: Unchanged from Admission Past Medical History: Unchanged from Admission Objective Active Medications: Acetaminophen (Tylenol Tab*) 650 mg PO Q4H PRN PRN Reason: FEVER/PAIN Amantadine HCl (Symmetrel Cap*) 100 mg PO BID [facility] Last Admin: 07/05/18 09:37 Dose: 100 mg Baclofen (Lioresal Tab*) 15 mg PO BID [facility] Last Admin: 07/05/18 09:36 Dose: 15 mg Brexpiprazole (Rexulti) 1 mg PO DAILY [facility] Last Admin: 07/05/18 09:26 Dose: Not Given Carbamazepine (Tegretol Tab(*)) 200 mg PO BID [facility] Last Admin: 07/05/18 09:37 Dose: 200 mg Enoxaparin Sodium (Lovenox(*)) 40 mg SUBCUT Q24H [facility] Last Admin: 07/05/18 16:28 Dose: 40 mg Heparin Sodium (Porcine) (Heparin Flush Port (Ivad)) 5 ml FLUSH DAILY [facility]; Protocol Last Admin: 07/05/18 09:26 Dose: Not Given Levothyroxine Sodium (Synthroid Tab*) 50 mcg PO DAILY@0600 [facility] Last Admin: 07/05/18 06:21 Dose: 50 mcg Linaclotide (Linzess (Nf)) 290 mcg PO DAILY [facility] Last Admin: 07/05/18 09:26 Dose: Not Given [place] Carbonate ([place] Carbonate Er Tab*) 900 mg PO BEDTIME [facility]; Protocol Last Admin: 07/04/18 20:28 Dose: 900 mg Methylphenidate HCl (Concerta Er Tab*) 36 mg PO DAILY [facility] Last Admin: 07/05/18 09:37 Dose: 36 mg Nft: Cyanocobalamin/Folic Acid [Ra Vit B -12 1,000 Mcg Lozenge] 1 Each) 1 each SL DAILY [facility] Last Admin: 07/05/18 09:26 Dose: Not Given Ondansetron HCl (Zofran Tab*) 4 mg PO Q6H PRN PRN Reason: NAUSEA Last Admin: 07/03/18 20:35 Dose: 4 mg Oxybutynin Chloride (Ditropan Tab*) 5 mg PO QAM [facility] Last Admin: 07/05/18 09:37 Dose: 5 mg Oxybutynin Chloride (Ditropan Tab*) 10 mg PO QPM [facility] Last Admin: 07/05/18 16:28 Dose: 10 mg Oxycodone HCl (Roxycodone Tab*) 10 mg PO Q8H PRN PRN Reason: PAIN Last Admin: 07/05/18 16:46 Dose: 10 mg Pantoprazole Sodium (Protonix Tab (Nf)) 40 mg PO DAILY [facility] Last Admin: 07/05/18 09:37 Dose: 40 mg Polyethylene Glycol/Electrolytes (Miralax*) 17 gm PO DAILY PRN PRN Reason: CONSTIPATION Potassium Chloride (Klor Con Er Tab*) 10 meq PO DAILY [facility] Last Admin: 07/05/18 09:37 Dose: 10 meq Vilazodone HCl (Viibryd (Nf)) 40 mg PO DAILY [facility] Last Admin: 07/05/18 09:37 Dose: 40 mg Vital Signs - 8 hr 07/05/18 07/05/18 07/05/18 11:16 16:08 16:40 Temperature 98.5 F 98.2 F 98.4 F Pulse Rate 81 78 99 Respiratory 16 18 16 Rate Blood Pressure 124/67 126/70 103/88 (mmHg) O2 Sat by Pulse 95 97 96 Oximetry 07/05/18 16:46 Temperature Pulse Rate Respiratory 18 Rate Blood Pressure (mmHg) O2 Sat by Pulse Oximetry Oxygen Devices in Use Now: None Appearance: responds slowly to questions, alert confused to time Eyes: No Scleral Icterus Ears/Nose/Mouth/Throat: Clear Oropharnyx, Mucous Membranes Moist Neck: NL Appearance and Movements; NL JVP, Trachea Midline Respiratory: Symmetrical Chest Expansion and Respiratory Effort, Clear to Auscultation Cardiovascular: NL Sounds; No Murmurs; No JVD, No Edema Abdominal: NL Sounds; No Tenderness; No Distention Extremities: No Edema, No Clubbing, Cyanosis Neurological: Alert and Oriented x 3 Nutrition: Taking PO's Result Diagrams: 07/01/18 16:30 07/05/18 16:18 Assess/Plan/Problems-Billing Assessment: Ms. Cisneros is a 48 y.o female with pmhx of MS, sz, hypothyroid who presented to the ER for evaluation of weakness. - Patient Problems (1) Weakness Current Visit: Yes Status: Acute Code(s): R53.1 - WEAKNESS SNOMED Code(s) : 92896196 Comment: acute on chronic- suspect this is relatede to progressive MS PT eval licensed clinical social worker for placement (2) Seizure Current Visit: Yes Status: Acute Code(s): R56.9 - UNSPECIFIED CONVULSIONS SNOMED Code(s): 94626836 Comment: recent diagnosis of seizure, continue carbamazepine (3) Multiple sclerosis Current Visit: No Status: Chronic Code(s): G35 - MULTIPLE SCLEROSIS SNOMED Code(s): 70789558 Comment: - patient with progressively worsening MS - spoke to Dr. Lara today - will order MRI brain with and without contrast and give 1 dose of solumedrol 500 mg ivpb (4) History of DVT (deep vein thrombosis) Current Visit: No Status: Chronic Code(s): Z86.718 - PERSONAL HISTORY OF OTHER VENOUS THROMBOSIS AND EMBOLISM SNOMED Code(s): 216322297 Comment: lovenox subq for dvt prop (5) Hypothyroidism Current Visit: No Status: Chronic Code(s): E03.9 - HYPOTHYROIDISM, UNSPECIFIED SNOMED Code(s): 91794420 Comment: on levothyroxine 50mcg (recently decreased) repeat level in 4-6 weeks (6) DVT prophylaxis Current Visit: No Status: Acute Priority: Medium Code(s): KUD9239 - SNOMED Code(s): 052660582 Comment: history of DVT. continue lovenox subQ (7) DNR (do not resuscitate) Current Visit: No Status: Acute Status and Disposition: licensed clinical social worker/CM working on placement
[2018-07-05] MEDS: Lithium Carbonate ER* 450 MG TAB.ER PO SCH (20:49)
[2018-07-05] MEDS: Ondansetron TAB* 4 MG PO PRN (20:51)
[2018-07-06] MEDS: Levothyroxine TAB* 50 MCG TAB PO SCH (05:31)
--- NOTE | 2018-07-06 08:54 | PN ---
Subjective Date of Service: 07/06/18 Length of Stay: 5 Days Neurology is following for MS Interval History: No new issues reported overnight. She denies any new issues or concerns. No pain, no new focal numbness, tingling or weakness, no new vision symptoms. She tolerated the Solumedrol. Has not noticed much change. MRI: Stable. Lesions noted but no new lesions or enhancing lesions Family History: Unchanged from Admission Social History: Unchanged from Admission Past Medical History: Unchanged from Admission Objective Active Medications: Acetaminophen (Tylenol Tab*) 650 mg PO Q4H PRN PRN Reason: FEVER/PAIN Amantadine HCl (Symmetrel Cap*) 100 mg PO BID [facility] Last Admin: 07/05/18 20:49 Dose: 100 mg Baclofen (Lioresal Tab*) 15 mg PO BID [facility] Last Admin: 07/05/18 20:49 Dose: 15 mg Brexpiprazole (Rexulti) 1 mg PO DAILY [facility] Last Admin: 07/05/18 09:26 Dose: Not Given Carbamazepine (Tegretol Tab(*)) 200 mg PO BID [facility] Last Admin: 07/05/18 20:49 Dose: 200 mg Enoxaparin Sodium (Lovenox(*)) 40 mg SUBCUT Q24H [facility] Last Admin: 07/05/18 16:28 Dose: 40 mg Heparin Sodium (Porcine) (Heparin Flush Port (Ivad)) 5 ml FLUSH DAILY [facility]; Protocol Last Admin: 07/05/18 20:59 Dose: 5 ml Levothyroxine Sodium (Synthroid Tab*) 50 mcg PO DAILY@0600 [facility] Last Admin: 07/06/18 05:31 Dose: 50 mcg Linaclotide (Linzess (Nf)) 290 mcg PO DAILY [facility] Last Admin: 07/05/18 09:26 Dose: Not Given [place] Carbonate ([place] Carbonate Er Tab*) 900 mg PO BEDTIME [facility]; Protocol Last Admin: 07/05/18 20:49 Dose: 900 mg Methylphenidate HCl (Concerta Er Tab*) 36 mg PO DAILY [facility] Last Admin: 07/05/18 09:37 Dose: 36 mg Nft: Cyanocobalamin/Folic Acid [Ra Vit B -12 1,000 Mcg Lozenge] 1 Each) 1 each SL DAILY [facility] Last Admin: 07/05/18 09:26 Dose: Not Given Ondansetron HCl (Zofran Tab*) 4 mg PO Q6H PRN PRN Reason: NAUSEA Last Admin: 07/05/18 20:51 Dose: 4 mg Oxybutynin Chloride (Ditropan Tab*) 5 mg PO QAM [facility] Last Admin: 07/05/18 09:37 Dose: 5 mg Oxybutynin Chloride (Ditropan Tab*) 10 mg PO QPM [facility] Last Admin: 07/05/18 16:28 Dose: 10 mg Oxycodone HCl (Roxycodone Tab*) 10 mg PO Q8H PRN PRN Reason: PAIN Last Admin: 07/05/18 16:46 Dose: 10 mg Pantoprazole Sodium (Protonix Tab (Nf)) 40 mg PO DAILY [facility] Last Admin: 07/05/18 09:37 Dose: 40 mg Polyethylene Glycol/Electrolytes (Miralax*) 17 gm PO DAILY PRN PRN Reason: CONSTIPATION Potassium Chloride (Klor Con Er Tab*) 10 meq PO DAILY [facility] Last Admin: 07/05/18 09:37 Dose: 10 meq Vilazodone HCl (Viibryd (Nf)) 40 mg PO DAILY [facility] Last Admin: 07/05/18 09:37 Dose: 40 mg Vital Signs 07/05/18 07/05/18 07/05/18 09:52 11:16 16:08 Temperature 98.5 F 98.2 F Pulse Rate 81 78 Respiratory 16 16 18 Rate Blood Pressure 124/67 126/70 (mmHg) O2 Sat by Pulse 95 97 Oximetry 07/05/18 07/05/18 07/05/18 16:40 16:46 17:59 Temperature 98.4 F Pulse Rate 99 Respiratory 16 18 16 Rate Blood Pressure 103/88 (mmHg) O2 Sat by Pulse 96 Oximetry 07/05/18 07/05/18 07/05/18 19:41 20:00 23:25 Temperature 98.4 F 98.3 F Pulse Rate 92 85 Respiratory 18 16 18 Rate Blood Pressure 117/63 106/53 (mmHg) O2 Sat by Pulse 96 95 Oximetry 07/06/18 03:17 Temperature 97.9 F Pulse Rate 87 Respiratory 16 Rate Blood Pressure 126/77 (mmHg) O2 Sat by Pulse 96 Oximetry Intake and Output Last 24 Hours 01/13/19 01/14/19 01/15/19 01/16/19 06:59 06:59 06:59 06:59 Intake Total 193 540 240 Output Total 200 380 Balance 1931 340 -140 Weight 170 lb 6.4 oz Intake: IV Fluids 1932 NS (0.9%) 966 IVPB 130 NS (0.9%) 30 solumedrol 100 Oral 0 540 110 Output: Urine 200 380 Other: Estimated Void Large Large Medium Medium # Bowel Movements 0 # Voids 1 1 1 Oxygen Devices in Use Now: None Neurology Exam: General: Awake, Alert, Oriented x3 HEENT: Normocephalic/atraumatic, sclera anicteric, MM dry Neck: Supple Chest: Clear to auscultation bilaterally Cardiovascular: Regular rate and rhythm without murmurs, rubs, gallops Abdomen: Soft, nontender/nondistended Extremities: No clubbing, cyanosis, or edema Neurological Findings: Awake but somnolent. Paucity of speech with flat affect. Speech: No dysarthria Cranial Nerve: PEERL, APD, EOM intact, no nystagmus, face symmetric bilaterally , palate elevates symmetrically, tongue midline, SCM and Trapezius s/s. Motor: 4/5 strength in the UEs bilaterally. Minimal movement 3/5 LEs bilaterally, left slightly stronger than right. 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 On Tegretol, therapeutic. No further seizure activity. Readmitted several days ago with failure to thrive , concern for her safety at home, memory issues and weakness. --I suspect her secondary progressive MS is worsening. There are no new lesions on MRI but there would not necessarily be with secondary progressive. We tried a dose of Solumedrol yesterday but it is still early to see if she has any benefit. From an MS perspective, there is little we can do at this point. [facility] on Cytoxan but stopped due to blood in the urine. She needs Urology evaluation to rule out hemorrhagic cystitis and to make recommendations regarding the safety of continued Cytoxan. She is to go to rehab soon which I am hoping with help with her deconditioning and weakness. It remains to be seen how much her memory will improve. I plan to continue to follow her as an outpatient after discharge. I spoke with the family who will be happy to transport her to the office. --Seizure: I would continue the Tegretol unchanged at this point.
[2018-07-06] MEDS: Amantadine CAP* 100 MG PO SCH ×2 (09:25→19:50)
[2018-07-06] MEDS: Baclofen TAB* 10 MG PO SCH ×2 (09:25→19:50)
[2018-07-06] MEDS: CMCS: Vilazodone (NF) 40 MG TAB PO SCH (09:25)
[2018-07-06] MEDS: Pantoprazole TAB * 40 MG TAB PO SCH (09:26)
[2018-07-06] MEDS: Potassium Chlor TAB* 10 MEQ TAB.ER PO SCH (09:26)
[2018-07-06] MEDS: carBAMazepine TAB(*) 200 MG PO SCH ×2 (09:26→19:50)
[2018-07-06] MEDS: Oxybutynin TAB* 5 MG PO SCH ×2 (09:26→18:03)
[2018-07-06] MEDS: Methylphenidate ER TAB* 18 MG PO SCH (09:26)
[2018-07-06] MEDS: LINACLOTIDE 290 MCG PO SCH (09:27)
[2018-07-06] MEDS: BREXPIPRAZOLE 1 MG PO SCH (09:27)
[2018-07-06] MEDS: CYANOCOBALAMIN SL SCH (09:28)
[2018-07-06] MEDS: FOLIC ACID SL SCH (09:28)
[2018-07-06] MEDS: Enoxaparin(*) 40 MG/0.4 ML SYR SUBCUT SCH (18:04)
[2018-07-06] MEDS: Lithium Carbonate ER* 450 MG TAB.ER PO SCH (19:50)
--- NOTE | 2018-07-06 20:12 | PN ---
Subjective Date of Service: 07/06/18 Interval History: patient reports no improves today, states that she continues to have difficult remembering short term. Patient did remember her son visiting her last night and smiled when asked about the visit. Denies chest pain or shortness of breath. denies abd pain n/v/d. Family History: Unchanged from Admission Social History: Unchanged from Admission Past Medical History: Unchanged from Admission Objective Active Medications: Acetaminophen (Tylenol Tab*) 650 mg PO Q4H PRN PRN Reason: FEVER/PAIN Amantadine HCl (Symmetrel Cap*) 100 mg PO BID [facility] Last Admin: 07/06/18 19:50 Dose: 100 mg Baclofen (Lioresal Tab*) 15 mg PO BID [facility] Last Admin: 07/06/18 19:50 Dose: 15 mg Brexpiprazole (Rexulti) 1 mg PO DAILY [facility] Last Admin: 07/06/18 09:27 Dose: Not Given Carbamazepine (Tegretol Tab(*)) 200 mg PO BID [facility] Last Admin: 07/06/18 19:50 Dose: 200 mg Enoxaparin Sodium (Lovenox(*)) 40 mg SUBCUT Q24H [facility] Last Admin: 07/06/18 18:04 Dose: 40 mg Heparin Sodium (Porcine) (Heparin Flush Port (Ivad)) 5 ml FLUSH DAILY [facility]; Protocol Last Admin: 07/06/18 09:27 Dose: 5 ml Levothyroxine Sodium (Synthroid Tab*) 50 mcg PO DAILY@0600 [facility] Last Admin: 07/06/18 05:31 Dose: 50 mcg Linaclotide (Linzess (Nf)) 290 mcg PO DAILY [facility] Last Admin: 07/06/18 09:27 Dose: Not Given [place] Carbonate ([place] Carbonate Er Tab*) 900 mg PO BEDTIME [facility]; Protocol Last Admin: 07/06/18 19:50 Dose: 900 mg Methylphenidate HCl (Concerta Er Tab*) 36 mg PO DAILY [facility] Last Admin: 07/06/18 09:26 Dose: 36 mg Nft: Cyanocobalamin/Folic Acid [Ra Vit B -12 1,000 Mcg Lozenge] 1 Each) 1 each SL DAILY [facility] Last Admin: 07/06/18 09:28 Dose: Not Given Ondansetron HCl (Zofran Tab*) 4 mg PO Q6H PRN PRN Reason: NAUSEA Last Admin: 07/05/18 20:51 Dose: 4 mg Oxybutynin Chloride (Ditropan Tab*) 5 mg PO QAM [facility] Last Admin: 07/06/18 09:26 Dose: 5 mg Oxybutynin Chloride (Ditropan Tab*) 10 mg PO QPM [facility] Last Admin: 07/06/18 18:03 Dose: 10 mg Oxycodone HCl (Roxycodone Tab*) 10 mg PO Q8H PRN PRN Reason: PAIN Last Admin: 07/05/18 16:46 Dose: 10 mg Pantoprazole Sodium (Protonix Tab (Nf)) 40 mg PO DAILY [facility] Last Admin: 07/06/18 09:26 Dose: 40 mg Polyethylene Glycol/Electrolytes (Miralax*) 17 gm PO DAILY PRN PRN Reason: CONSTIPATION Potassium Chloride (Klor Con Er Tab*) 10 meq PO DAILY [facility] Last Admin: 07/06/18 09:26 Dose: 10 meq Vilazodone HCl (Viibryd (Nf)) 40 mg PO DAILY [facility] Last Admin: 07/06/18 09:25 Dose: 40 mg Vital Signs - 8 hr 07/06/18 15:30 Temperature 98.5 F Pulse Rate 101 Respiratory 12 Rate Blood Pressure 121/69 (mmHg) O2 Sat by Pulse 94 Oximetry Oxygen Devices in Use Now: None Appearance: appears comfortable , no acute distress Eyes: No Scleral Icterus Ears/Nose/Mouth/Throat: Clear Oropharnyx, Mucous Membranes Moist Neck: NL Appearance and Movements; NL JVP, Trachea Midline Respiratory: Symmetrical Chest Expansion and Respiratory Effort, Clear to Auscultation Cardiovascular: NL Sounds; No Murmurs; No JVD, No Edema Abdominal: NL Sounds; No Tenderness; No Distention Lymphatic: No Auricular Adenopathy Extremities: No Edema Skin: No Rash or Ulcers Neurological: Alert and Oriented x 3 Nutrition: Taking PO's Result Diagrams: 07/01/18 16:30 07/05/18 16:18 Assess/Plan/Problems-Billing Assessment: Ms. Cisneros is a 48 y.o female with pmhx of MS, sz, hypothyroid who presented to the ER for evaluation of weakness. - Patient Problems (1) Weakness Current Visit: Yes Status: Acute Code(s): R53.1 - WEAKNESS SNOMED Code(s) : 63511569 Comment: acute on chronic- suspect this is related to progressive MS PT eval social insurance analyst for placement (2) Seizure Current Visit: Yes Status: Acute Code(s): R56.9 - UNSPECIFIED CONVULSIONS SNOMED Code(s): 00696257 Comment: recent diagnosis of seizure, continue carbamazepine (3) Multiple sclerosis Current Visit: No Status: Chronic Code(s): G35 - MULTIPLE SCLEROSIS SNOMED Code(s): 74185201 Comment: - patient with progressively worsening MS - MRI brain no acute changes - no improvement with solumedrol - HCP requesting hospice referral (4) History of DVT (deep vein thrombosis) Current Visit: No Status: Chronic Code(s): Z86.718 - PERSONAL HISTORY OF OTHER VENOUS THROMBOSIS AND EMBOLISM SNOMED Code(s): 913883414 Comment: lovenox subq for dvt prop (5) Hypothyroidism Current Visit: No Status: Chronic Code(s): E03.9 - HYPOTHYROIDISM, UNSPECIFIED SNOMED Code(s): 61697028 Comment: on levothyroxine 50mcg (recently decreased) repeat level in 4-6 weeks (6) DVT prophylaxis Current Visit: No Status: Acute Priority: Medium Code(s): QOA4591 - SNOMED Code(s): 306428041 Comment: history of DVT. continue lovenox subQ (7) DNR (do not resuscitate) Current Visit: No Status: Acute Status and Disposition: social insurance analyst/CM working on placement
[2018-07-07] MEDS: Levothyroxine TAB* 50 MCG TAB PO SCH (05:59)
[2018-07-07] MEDS: BREXPIPRAZOLE 1 MG PO SCH (07:25)
[2018-07-07] MEDS: FOLIC ACID SL SCH (07:25)
[2018-07-07] MEDS: LINACLOTIDE 290 MCG PO SCH (07:25)
[2018-07-07] MEDS: CYANOCOBALAMIN SL SCH (07:25)
[2018-07-07] MEDS: Baclofen TAB* 10 MG PO SCH ×2 (08:03→20:23)
[2018-07-07] MEDS: Amantadine CAP* 100 MG PO SCH ×2 (08:03→20:22)
[2018-07-07] MEDS: carBAMazepine TAB(*) 200 MG PO SCH ×2 (08:03→20:23)
[2018-07-07] MEDS: CMCS: Vilazodone (NF) 40 MG TAB PO SCH (08:03)
[2018-07-07] MEDS: Pantoprazole TAB * 40 MG TAB PO SCH (08:03)
[2018-07-07] MEDS: Methylphenidate ER TAB* 18 MG PO SCH (08:03)
[2018-07-07] MEDS: Oxybutynin TAB* 5 MG PO SCH ×2 (08:04→17:35)
[2018-07-07] MEDS: Potassium Chlor TAB* 10 MEQ TAB.ER PO SCH (08:04)
--- NOTE | 2018-07-07 13:31 | CONSULT ---
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 She has recntly developed a seizure disorder 06/29/18. Her other medical problems in clude depression, asthma, migraine, urinary incontinence, L femoral DVT and myositis. EEG encephalopathy with increase epileptogenic potenial. She is and shares custody with her 11 yo son. No alcohol, no tobacco and no drug use. Since 1 week ago she was herself and then developed decreased memory, decrease appetite forgetting to eat, aspiration risk had to change to puree overall she has had a profound decline. Dr. Lara on his last visit says her life expectancy is less than 6 months per [employer]. Her KPS 40% & PPS 50%. All history is obtained from medical records and HCP Humera Lino. Pt is not able to give history. Lab Values: Laboratory Last Values WBC 5.4 10^3/ul (3.5-10.8) 07/01/18 16:30 RBC 4.24 10^6/ul (4.00-5.40) 07/01/18 16:30 Hgb 12.6 g/dl (12.0-16.0) 07/01/18 16:30 Hct 38 % (35-47) 07/01/18 16:30 MCV 89 fL (80-97) 07/01/18 16:30 MCH 30 pg (27-31) 07/01/18 16:30 MCHC 34 g/dl (31-36) 07/01/18 16:30 RDW 16 % (10.5-15) H 07/01/18 16:30 Plt Count 270 10^3/ul (150-450) 07/01/18 16:30 MPV 8.1 fL (7.4-10.4) 07/01/18 16:30 Neut % (Auto) 70.9 % 07/01/18 16:30 Lymph % (Auto) 10.5 % 07/01/18 16:30 [place] % (Auto) 11.8 % 07/01/18 16:30 Eos % (Auto) 5.8 % 07/01/18 16:30 Baso % (Auto) 1.0 % 07/01/18 16:30 Absolute Neuts (auto) 3.8 10^3/ul (1.5-7.7) 07/01/18 16:30 Absolute Lymphs (auto) 0.6 10^3/ul (1.0-4.8) L 07/01/18 16:30 Absolute Monos (auto) 0.6 10^3/ul (0-0.8) 07/01/18 16:30 Absolute Eos (auto) 0.3 10^3/ul (0-0.6) 07/01/18 16:30 Absolute Basos (auto) 0.1 10^3/ul (0-0.2) 07/01/18 16:30 Absolute Nucleated RBC 0 10^3/ul 07/01/18 16:30 Nucleated RBC % 0 07/01/18 16:30 INR (Anticoag Therapy) 1.10 (0.77-1.02) H 07/01/18 16:30 Sodium 138 mmol/L (135-145) 07/05/18 16:18 Potassium 4.0 mmol/L (3.5-5.0) 07/05/18 16:18 Chloride 103 mmol/L (101-111) 07/05/18 16:18 Carbon Dioxide 30 mmol/L (22-32) 07/05/18 16:18 Anion Gap 5 mmol/L (2-11) 07/05/18 16:18 BUN 5 mg/dL (6-24) L 07/05/18 16:18 Creatinine 0.71 mg/dL (0.51-0.95) 07/05/18 16:18 Est GFR ( Amer) 105.9 (>60) 07/05/18 16:18 Est GFR (Non-Af Amer) 87.5 (>60) 07/05/18 16:18 BUN/Creatinine Ratio 7.0 (8-20) L 07/05/18 16:18 Glucose 148 mg/dL (70-100) H 07/05/18 16:18 Lactic Acid 0.8 mmol/L (0.5-2.0) 07/01/18 16:30 Calcium 9.3 mg/dL (8.6-10.3) 07/05/18 16:18 Total Bilirubin 0.40 mg/dL (0.2-1.0) 07/01/18 16:30 AST 14 U/L (13-39) 07/01/18 16:30 ALT 13 U/L (7-52) 07/01/18 16:30 Alkaline Phosphatase 129 U/L (34-104) H 07/01/18 16:30 Ammonia 50 mcmol/L (16-53) 07/01/18 16:30 Troponin I 0.00 ng/mL (<0.04) 07/01/18 16:30 Total Protein 5.9 g/dL (6.4-8.9) L 07/01/18 16:30 Albumin 3.7 g/dL (3.2-5.2) 07/01/18 16:30 Globulin 2.2 g/dL (2-4) 07/01/18 16:30 Albumin/Globulin Ratio 1.7 (1-3) 07/01/18 16:30 TSH 0.06 mcIU/mL (0.34-5.60) L 07/01/18 16:30 Urine Color Yellow 07/01/18 20:22 Urine Appearance Clear 07/01/18 20: Urine pH 7.0 (5-9) 07/01/18 20:22 Ur Specific [place] 1.011 (1.010-1.030) 07/01/18 20:22 Urine Protein Negative (Negative) 07/01/18 20:22 Urine Ketones Negative (Negative) 07/01/18 20:22 Urine Blood Negative (Negative) 07/01/18 20:22 Urine Nitrate Negative (Negative) 07/01/18 20:22 Urine Bilirubin Negative (Negative) 07/01/18 20:22 Urine Urobilinogen Negative (Negative) 07/01/18 20:22 Ur Leukocyte Esterase Negative (Negative) 07/01/18 20: Urine Glucose Negative (Negative) 07/01/18 20:22 Carbamazepine 6.7 mcg/mL (4.0-12.0) 07/01/18 16:30 [place] 0.18 mmol/L (0.6-1.2) L 07/01/18 16:30 Serum Alcohol < 10 mg/dL (<10) 07/01/18 16:30 - Objective Active Medications: Acetaminophen (Tylenol Tab*) 650 mg PO Q4H PRN PRN Reason: FEVER/PAIN Amantadine HCl (Symmetrel Cap*) 100 mg PO BID [facility] Last Admin: 07/07/18 08:03 Dose: 100 mg Baclofen (Lioresal Tab*) 15 mg PO BID [facility] Last Admin: 07/07/18 08:03 Dose: 15 mg Brexpiprazole (Rexulti) 1 mg PO DAILY [facility] Last Admin: 07/07/18 07:25 Dose: Not Given Carbamazepine (Tegretol Tab(*)) 200 mg PO BID [facility] Last Admin: 07/07/18 08:03 Dose: 200 mg Enoxaparin Sodium (Lovenox(*)) 40 mg SUBCUT Q24H [facility] Last Admin: 07/06/18 18:04 Dose: 40 mg Heparin Sodium (Porcine) (Heparin Flush Port (Ivad)) 5 ml FLUSH DAILY [facility]; Protocol Last Admin: 07/07/18 08:03 Dose: 5 ml Levothyroxine Sodium (Synthroid Tab*) 50 mcg PO DAILY@0600 [facility] Last Admin: 07/07/18 05:59 Dose: 50 mcg Linaclotide (Linzess (Nf)) 290 mcg PO DAILY [facility] Last Admin: 07/07/18 07:25 Dose: Not Given [place] Carbonate ([place] Carbonate Er Tab*) 900 mg PO BEDTIME [facility]; Protocol Last Admin: 07/06/18 19:50 Dose: 900 mg Methylphenidate HCl (Concerta Er Tab*) 36 mg PO DAILY [facility] Last Admin: 07/07/18 08:03 Dose: 36 mg Nft: Cyanocobalamin/Folic Acid [Ra Vit B -12 1,000 Mcg Lozenge] 1 Each) 1 each SL DAILY [facility] Last Admin: 07/07/18 07:25 Dose: Not Given Ondansetron HCl (Zofran Tab*) 4 mg PO Q6H PRN PRN Reason: NAUSEA Last Admin: 07/05/18 20:51 Dose: 4 mg Oxybutynin Chloride (Ditropan Tab*) 5 mg PO QAM [facility] Last Admin: 07/07/18 08:04 Dose: 5 mg Oxybutynin Chloride (Ditropan Tab*) 10 mg PO QPM [facility] Last Admin: 07/06/18 18:03 Dose: 10 mg Oxycodone HCl (Roxycodone Tab*) 10 mg PO Q8H PRN PRN Reason: PAIN Last Admin: 07/05/18 16:46 Dose: 10 mg Pantoprazole Sodium (Protonix Tab (Nf)) 40 mg PO DAILY [facility] Last Admin: 07/07/18 08:03 Dose: 40 mg Polyethylene Glycol/Electrolytes (Miralax*) 17 gm PO DAILY PRN PRN Reason: CONSTIPATION Potassium Chloride (Klor Con Er Tab*) 10 meq PO DAILY [facility] Last Admin: 07/07/18 08:04 Dose: 10 meq Vilazodone HCl (Viibryd (Nf)) 40 mg PO DAILY [facility] Last Admin: 07/07/18 08:03 Dose: 40 mg Vital Signs: Vital Signs: Temp Pulse Resp BP Pulse Ox 98.3 F 86 26 120/61 97 07/07/18 11:37 07/07/18 11:37 07/07/18 11:37 07/07/18 11:37 07/07/18 11:37 Patient Weight: Weight 77.292 kg Intake and Output: Intake & Output 07/05/18 07/06/18 07/07/18 07/08/18 06:59 06:59 06:59 06:59 Intake Total 540 240 540 180 Output Total 200 380 210 Balance 340 -140 330 180 Weight 77.292 kg Intake: IVPB 130 NS (0.9%) 30 solumedrol 100 Oral 540 110 540 180 Output: Urine 200 380 210 Other: Estimated Void Large Medium Medium # Bowel Movements 0 0 # Voids 1 1 1 ADLs: Meal Record Start: 07/01/18 18: 12 Freq: DAILY@0900,1400,1800 Status: Active Protocol: Created 07/01/18 18:12 System (Rec: 07/01/18 18:12 System [id number]) Document 07/02/18 09:00 [id number] (Rec: 07/02/18 10:51 [id number] MED-C09) Document 07/02/18 14:00 [id number] (Rec: 07/02/18 14:24 [id number] MED-C04) Document 07/02/18 18:00 [id number] (Rec: 07/02/18 19:00 [id number] MED-C26) Document 07/03/18 09:00 [id number] (Rec: 07/03/18 10:49 [id number] MED-C02) Document 07/03/18 18:00 [id number] (Rec: 07/03/18 23:45 [id number] MED-C11) Document 07/04/18 09:00 [id number] (Rec: 07/04/18 09:59 [id number] MED-C09) Document 07/04/18 13:47 [id number] (Rec: 07/04/18 13:47 [id number] MED-C14) Document 07/04/18 18:00 [id number] (Rec: 07/04/18 21:54 [id number] MED-C09) Document 07/05/18 09:00 [id number] (Rec: 07/05/18 10:23 [id number] MED-C09) Document 07/05/18 14:00 [id number] (Rec: 07/05/18 18:41 [id number] MED-C11) Document 07/05/18 18:00 [id number] (Rec: 07/05/18 18:37 [id number] MED-C11) Document 07/06/18 09:00 [id number] (Rec: 07/06/18 09:52 [id number] MED-C09) Document 07/06/18 14:00 [id number] (Rec: 07/06/18 14:26 [id number] MED-C09) Document 07/06/18 18:00 [id number] (Rec: 07/06/18 18:34 [id number] MED-C11) Document 07/07/18 08:59 [id number] (Rec: 07/07/18 08:59 [id number] MED-C09) Intake and Output Start: 07/01/18 15: 46 Freq: Status: Active Protocol: Created 07/01/18 15:46 System (Rec: 07/01/18 15:46 System [id number]) Intake and Output Start: 07/01/18 18: 12 Freq: DAILY@0600,1400,2200 Status: Active Protocol: Created 07/01/18 18:12 System (Rec: 07/01/18 18:12 System TELE-C15) Document 07/01/18 22:00 [id number] (Rec: 07/01/18 22:46 [id number] MED-C09) Document 07/02/18 06:00 [id number] (Rec: 07/02/18 06:27 [id number] MED-C09) Document 07/02/18 14:00 [id number] (Rec: 07/02/18 14:24 [id number] MED-C04) Document 07/02/18 22:00 [id number] (Rec: 07/02/18 22:45 [id number] MED-C09) Document 07/03/18 05:01 [id number] (Rec: 07/03/18 05:16 [id number] MED-C09) Document 07/03/18 22:00 [id number] (Rec: 07/03/18 23:46 [id number] MED-C11) Document 07/04/18 00:14 [id number] (Rec: 07/04/18 00:15 [id number] MED-C15) Document 07/04/18 12:09 [id number] (Rec: 07/04/18 12:09 [id number] MED-C09) Document 07/04/18 22:00 [id number] (Rec: 07/04/18 23:13 [id number] MED-C09) Document 07/05/18 06:00 [id number] (Rec: 07/05/18 06:37 [id number] MED-C09) Document 07/05/18 14:00 [id number] (Rec: 07/05/18 14:55 [id number] MED-C09) Document 07/05/18 22:00 [id number] (Rec: 07/05/18 22:31 [id number] MED-C09) Document 07/06/18 06:00 [id number] (Rec: 07/06/18 06:04 [id number] MED-C09) Document 07/06/18 14:00 [id number] (Rec: 07/06/18 14:26 [id number] MED-C09) Document 07/06/18 21:32 [id number] (Rec: 07/06/18 21:35 [id number] MED-C11) Document 07/07/18 06:00 [id number] (Rec: 07/07/18 06:33 [id number] MED-C26) Eyes: No Scleral Icterus Ears/Nose/Mouth/Throat: Clear Oropharnyx, Mucous Membranes Moist Neck: NL Appearance and Movements; NL JVP, Trachea Midline Cardiovascular: NL Sounds; No Murmurs; No JVD, No Edema Abdominal: NL Sounds; No Tenderness; No Distention Extremities: No Edema Neurological: NL Sensation - alert but not oriented - Assessment Assessment: 48 yo female with secondary progressive MS and new onset seizure(06/29/18) with confusion, decrease memory and not eating - Plan Consult Plan (MU): Hospice Plan: Spoke with HCP Humera Lino and their first preference is hospice residence if that is not an option they would like to pursue [facility] [place] or [facility] both of which did not have beds currently. Pt can not be unsupervised with her recent changes with mentation and progression of MS. Will send referral to [facility] and are awaiting their decision. According to her HCP this has been an acute change and seems to be occurring at an increased rate. Her neurologist has tried several interventions without benefit. Will notify PCP once disposition is clearer. Her hospice diagnosis would be Multiple Sclerosis especially with Dr. aLra's impression of less than 6 month life expectancy. - Time On Unit Date of Evaluation: 07/07/18 Hospice Consult Time in: 02:00 Hospice Consult Time Out: 03:00 Hospice Consult Time Total: 60 > 50% of Time Spend In Counseling or Coordinating Care: Yes
[2018-07-07] MEDS: Enoxaparin(*) 40 MG/0.4 ML SYR SUBCUT SCH (17:36)
--- NOTE | 2018-07-07 19:14 | PN ---
Subjective Date of Service: 07/07/18 Interval History: patient reports no improves today, states that she continues to have difficult remembering short term. Patient did remember her son visiting her last night and smiled when asked about the visit. Denies chest pain or shortness of breath. denies abd pain n/v/d. Family History: Unchanged from Admission Social History: Unchanged from Admission Past Medical History: Unchanged from Admission Objective Active Medications: Acetaminophen (Tylenol Tab*) 650 mg PO Q4H PRN PRN Reason: FEVER/PAIN Amantadine HCl (Symmetrel Cap*) 100 mg PO BID [facility] Last Admin: 07/07/18 08:03 Dose: 100 mg Baclofen (Lioresal Tab*) 15 mg PO BID [facility] Last Admin: 07/07/18 08:03 Dose: 15 mg Brexpiprazole (Rexulti) 1 mg PO DAILY [facility] Last Admin: 07/07/18 07:25 Dose: Not Given Carbamazepine (Tegretol Tab(*)) 200 mg PO BID [facility] Last Admin: 07/07/18 08:03 Dose: 200 mg Enoxaparin Sodium (Lovenox(*)) 40 mg SUBCUT Q24H [facility] Last Admin: 07/07/18 17:36 Dose: 40 mg Heparin Sodium (Porcine) (Heparin Flush Port (Ivad)) 5 ml FLUSH DAILY [facility]; Protocol Last Admin: 07/07/18 08:03 Dose: 5 ml Levothyroxine Sodium (Synthroid Tab*) 50 mcg PO DAILY@0600 [facility] Last Admin: 07/07/18 05:59 Dose: 50 mcg Linaclotide (Linzess (Nf)) 290 mcg PO DAILY [facility] Last Admin: 07/07/18 07:25 Dose: Not Given [place] Carbonate ([place] Carbonate Er Tab*) 900 mg PO BEDTIME [facility]; Protocol Last Admin: 07/06/18 19:50 Dose: 900 mg Methylphenidate HCl (Concerta Er Tab*) 36 mg PO DAILY [facility] Last Admin: 07/07/18 08:03 Dose: 36 mg Nft: Cyanocobalamin/Folic Acid [Ra Vit B -12 1,000 Mcg Lozenge] 1 Each) 1 each SL DAILY [facility] Last Admin: 07/07/18 07:25 Dose: Not Given Ondansetron HCl (Zofran Tab*) 4 mg PO Q6H PRN PRN Reason: NAUSEA Last Admin: 07/05/18 20:51 Dose: 4 mg Oxybutynin Chloride (Ditropan Tab*) 5 mg PO QAM [facility] Last Admin: 07/07/18 08:04 Dose: 5 mg Oxybutynin Chloride (Ditropan Tab*) 10 mg PO QPM [facility] Last Admin: 07/07/18 17:35 Dose: 10 mg Oxycodone HCl (Roxycodone Tab*) 10 mg PO Q8H PRN PRN Reason: PAIN Last Admin: 07/05/18 16:46 Dose: 10 mg Pantoprazole Sodium (Protonix Tab (Nf)) 40 mg PO DAILY [facility] Last Admin: 07/07/18 08:03 Dose: 40 mg Polyethylene Glycol/Electrolytes (Miralax*) 17 gm PO DAILY PRN PRN Reason: CONSTIPATION Potassium Chloride (Klor Con Er Tab*) 10 meq PO DAILY [facility] Last Admin: 07/07/18 08:04 Dose: 10 meq Vilazodone HCl (Viibryd (Nf)) 40 mg PO DAILY [facility] Last Admin: 07/07/18 08:03 Dose: 40 mg Vital Signs - 8 hr 07/07/18 07/07/18 11:37 15:46 Temperature 98.3 F 98.3 F Pulse Rate 86 86 Respiratory 26 14 Rate Blood Pressure 120/61 122/58 (mmHg) O2 Sat by Pulse 97 96 Oximetry Oxygen Devices in Use Now: None Appearance: alert, slow to respond Eyes: No Scleral Icterus Ears/Nose/Mouth/Throat: Clear Oropharnyx, Mucous Membranes Moist Neck: NL Appearance and Movements; NL JVP, Trachea Midline Respiratory: Symmetrical Chest Expansion and Respiratory Effort, Clear to Auscultation Cardiovascular: NL Sounds; No Murmurs; No JVD, No Edema Abdominal: NL Sounds; No Tenderness; No Distention Extremities: No Edema, No Clubbing, Cyanosis Skin: No Rash or Ulcers, No Nodules or Sclerosis Neurological: Alert and Oriented x 3 Nutrition: Taking PO's Result Diagrams: 07/01/18 16:30 07/05/18 16:18 Assess/Plan/Problems-Billing Assessment: Ms. Cisneros is a 48 y.o female with pmhx of MS, sz, hypothyroid who presented to the ER for evaluation of weakness. - Patient Problems (1) Weakness Current Visit: Yes Status: Acute Code(s): R53.1 - WEAKNESS SNOMED Code(s) : 57923799 Comment: acute on chronic- suspect this is related to progressive MS PT eval hospice social worker for placement- patient would like hospice care (2) Seizure Current Visit: Yes Status: Acute Code(s): R56.9 - UNSPECIFIED CONVULSIONS SNOMED Code(s): 57743716 Comment: recent diagnosis of seizure, continue carbamazepine (3) Multiple sclerosis Current Visit: No Status: Chronic Code(s): G35 - MULTIPLE SCLEROSIS SNOMED Code(s): 62459400 Comment: - patient with progressively worsening MS - MRI brain no acute changes - no improvement with solumedrol - HCP requesting hospice referral (4) History of DVT (deep vein thrombosis) Current Visit: No Status: Chronic Code(s): Z86.718 - PERSONAL HISTORY OF OTHER VENOUS THROMBOSIS AND EMBOLISM SNOMED Code(s): 012331223 Comment: lovenox subq for dvt prop (5) Hypothyroidism Current Visit: No Status: Chronic Code(s): E03.9 - HYPOTHYROIDISM, UNSPECIFIED SNOMED Code(s): 32910721 Comment: on levothyroxine 50mcg (recently decreased) repeat level in 4-6 weeks (6) DVT prophylaxis Current Visit: No Status: Acute Priority: Medium Code(s): SRT2948 - SNOMED Code(s): 557727923 Comment: history of DVT. continue lovenox subQ (7) DNR (do not resuscitate) Current Visit: No Status: Acute Status and Disposition: hospice social worker/CM working on placement- ready for discharge pending placement
[2018-07-07] MEDS: Lithium Carbonate ER* 450 MG TAB.ER PO SCH (20:23)
[2018-07-08] MEDS: Levothyroxine TAB* 50 MCG TAB PO SCH (06:24)
[2018-07-08] MEDS: FOLIC ACID SL SCH (09:16)
[2018-07-08] MEDS: BREXPIPRAZOLE 1 MG PO SCH (09:16)
[2018-07-08] MEDS: CYANOCOBALAMIN SL SCH (09:16)
[2018-07-08] MEDS: Amantadine CAP* 100 MG PO SCH ×2 (09:21→20:01)
[2018-07-08] MEDS: CMCS: Vilazodone (NF) 40 MG TAB PO SCH (09:21)
[2018-07-08] MEDS: Baclofen TAB* 10 MG PO SCH ×2 (09:21→20:01)
[2018-07-08] MEDS: Oxybutynin TAB* 5 MG PO SCH ×2 (09:21→17:38)
[2018-07-08] MEDS: Methylphenidate ER TAB* 18 MG PO SCH (09:21)
[2018-07-08] MEDS: Folic Acid TAB* 1 MG PO SCH (09:22)
[2018-07-08] MEDS: Cyanocobalamin TAB* 500 MCG PO SCH (09:22)
[2018-07-08] MEDS: carBAMazepine TAB(*) 200 MG PO SCH ×2 (09:22→20:01)
[2018-07-08] MEDS: Potassium Chlor TAB* 10 MEQ TAB.ER PO SCH (09:22)
[2018-07-08] MEDS: Pantoprazole TAB * 40 MG TAB PO SCH (09:22)
[2018-07-08] MEDS: LINACLOTIDE 290 MCG PO SCH (09:27)
[2018-07-08] MEDS: Enoxaparin(*) 40 MG/0.4 ML SYR SUBCUT SCH (17:38)
--- NOTE | 2018-07-08 19:03 | PN ---
Subjective Date of Service: 07/08/18 Interval History: patient continue to report difficulty with short term memory - patient Family History: Unchanged from Admission Social History: Unchanged from Admission Past Medical History: Unchanged from Admission Objective Active Medications: Acetaminophen (Tylenol Tab*) 650 mg PO Q4H PRN PRN Reason: FEVER/PAIN Amantadine HCl (Symmetrel Cap*) 100 mg PO BID [facility] Last Admin: 07/08/18 09:21 Dose: 100 mg Baclofen (Lioresal Tab*) 15 mg PO BID [facility] Last Admin: 07/08/18 09:21 Dose: 15 mg Brexpiprazole (Rexulti) 1 mg PO DAILY [facility] Last Admin: 07/08/18 09:16 Dose: Not Given Carbamazepine (Tegretol Tab(*)) 200 mg PO BID [facility] Last Admin: 07/08/18 09:22 Dose: 200 mg Cyanocobalamin (Vitamin B12 Tab*) 1,000 mcg PO DAILY [facility] Last Admin: 07/08/18 09:22 Dose: 1,000 mcg Enoxaparin Sodium (Lovenox(*)) 40 mg SUBCUT Q24H [facility] Last Admin: 07/08/18 17:38 Dose: 40 mg Folic Acid (Folvite Tab*) 1 mg PO DAILY [facility] Last Admin: 07/08/18 09:22 Dose: 1 mg Heparin Sodium (Porcine) (Heparin Flush Port (Ivad)) 5 ml FLUSH DAILY [facility]; Protocol Last Admin: 07/08/18 09:20 Dose: 5 ml Levothyroxine Sodium (Synthroid Tab*) 50 mcg PO DAILY@0600 [facility] Last Admin: 07/08/18 06:24 Dose: 50 mcg Linaclotide (Linzess (Nf)) 290 mcg PO DAILY [facility] Last Admin: 07/08/18 09:27 Dose: Not Given [place] Carbonate ([place] Carbonate Er Tab*) 900 mg PO BEDTIME [facility]; Protocol Last Admin: 07/07/18 20:23 Dose: 900 mg Methylphenidate HCl (Concerta Er Tab*) 36 mg PO DAILY [facility] Last Admin: 07/08/18 09:21 Dose: 36 mg Ondansetron HCl (Zofran Tab*) 4 mg PO Q6H PRN PRN Reason: NAUSEA Last Admin: 07/05/18 20:51 Dose: 4 mg Oxybutynin Chloride (Ditropan Tab*) 5 mg PO QAM [facility] Last Admin: 07/08/18 09:21 Dose: 5 mg Oxybutynin Chloride (Ditropan Tab*) 10 mg PO QPM [facility] Last Admin: 07/08/18 17:38 Dose: 10 mg Pantoprazole Sodium (Protonix Tab (Nf)) 40 mg PO DAILY [facility] Last Admin: 07/08/18 09:22 Dose: 40 mg Polyethylene Glycol/Electrolytes (Miralax*) 17 gm PO DAILY PRN PRN Reason: CONSTIPATION Potassium Chloride (Klor Con Er Tab*) 10 meq PO DAILY [facility] Last Admin: 07/08/18 09:22 Dose: 10 meq Vilazodone HCl (Viibryd (Nf)) 40 mg PO DAILY [facility] Last Admin: 07/08/18 09:21 Dose: 40 mg Vital Signs - 8 hr 07/08/18 15:03 Temperature 97.6 F Pulse Rate 77 Respiratory 18 Rate Blood Pressure 111/72 (mmHg) O2 Sat by Pulse 100 Oximetry Oxygen Devices in Use Now: None Appearance: alert , resting in bed, no acute distress Eyes: No Scleral Icterus Ears/Nose/Mouth/Throat: Clear Oropharnyx, Mucous Membranes Moist Neck: NL Appearance and Movements; NL JVP Respiratory: Symmetrical Chest Expansion and Respiratory Effort, Clear to Auscultation Cardiovascular: NL Sounds; No Murmurs; No JVD, No Edema Abdominal: NL Sounds; No Tenderness; No Distention Extremities: No Edema, No Clubbing, Cyanosis Skin: No Rash or Ulcers Neurological: - - alert and oriented to place and self, confused to time and events Nutrition: Taking PO's Result Diagrams: 07/01/18 16:30 07/05/18 16:18 Assess/Plan/Problems-Billing Assessment: Ms. Cisneros is a 48 y.o female with pmhx of MS, sz, hypothyroid who presented to the ER for evaluation of weakness. - Patient Problems (1) Weakness Current Visit: Yes Status: Acute Code(s): R53.1 - WEAKNESS SNOMED Code(s) : 52128120 Comment: acute on chronic- suspect this is related to progressive MS PT eval rn social work for placement- patient would like hospice care (2) Seizure Current Visit: Yes Status: Acute Code(s): R56.9 - UNSPECIFIED CONVULSIONS SNOMED Code(s): 05827550 Comment: recent diagnosis of seizure, continue carbamazepine (3) Multiple sclerosis Current Visit: No Status: Chronic Code(s): G35 - MULTIPLE SCLEROSIS SNOMED Code(s): 16890783 Comment: - patient with progressively worsening MS - MRI brain no acute changes - no improvement with solumedrol - HCP requesting hospice referral (4) History of DVT (deep vein thrombosis) Current Visit: No Status: Chronic Code(s): Z86.718 - PERSONAL HISTORY OF OTHER VENOUS THROMBOSIS AND EMBOLISM SNOMED Code(s): 580505631 Comment: lovenox subq for dvt prop (5) Hypothyroidism Current Visit: No Status: Chronic Code(s): E03.9 - HYPOTHYROIDISM, UNSPECIFIED SNOMED Code(s): 06574557 Comment: on levothyroxine 50mcg (recently decreased) repeat level in 4-6 weeks (6) DVT prophylaxis Current Visit: No Status: Acute Priority: Medium Code(s): ZDC7271 - SNOMED Code(s): 155966053 Comment: history of DVT. continue lovenox subQ (7) DNR (do not resuscitate) Current Visit: No Status: Acute Status and Disposition: rn social work/CM working on placement- ready for discharge- [facility] tomorrow
[2018-07-08] MEDS: Lithium Carbonate ER* 450 MG TAB.ER PO SCH (20:01)
[2018-07-09] MEDS: Levothyroxine TAB* 50 MCG TAB PO SCH (05:08)
[2018-07-09 07:39] LABS: Hematocrit 39 % (35-47); Hemoglobin 13.1 g/dl (12.0-16.0); Mean Platelet Volume 8.2 fL (7.4-10.4); Platelet Count 315 10^3/ul (150-450)
[2018-07-09 07:54] LABS: EGFR Non-African American 90.4 (>60)
[2018-07-09] MEDS: Baclofen TAB* 10 MG PO SCH (08:22)
[2018-07-09] MEDS: CMCS: Vilazodone (NF) 40 MG TAB PO SCH (08:23)
[2018-07-09] MEDS: Folic Acid TAB* 1 MG PO SCH (08:26)
[2018-07-09] MEDS: Pantoprazole TAB * 40 MG TAB PO SCH (08:26)
[2018-07-09] MEDS: Methylphenidate ER TAB* 18 MG PO SCH (08:27)
[2018-07-09] MEDS: Amantadine CAP* 100 MG PO SCH (08:27)
[2018-07-09] MEDS: carBAMazepine TAB(*) 200 MG PO SCH (08:28)
[2018-07-09] MEDS: Potassium Chlor TAB* 10 MEQ TAB.ER PO SCH (08:28)
[2018-07-09] MEDS: Cyanocobalamin TAB* 500 MCG PO SCH (08:29)
[2018-07-09] MEDS: Oxybutynin TAB* 5 MG PO SCH (08:29)
[2018-07-09] MEDS: LINACLOTIDE 290 MCG PO SCH (08:30)
[2018-07-09] MEDS: BREXPIPRAZOLE 1 MG PO SCH (08:30)
[2018-07-09] MEDS: Ondansetron TAB* 4 MG PO PRN (08:55)
--- NOTE | 2018-07-09 10:30 | DS ---
CC: Dr. Chiki Chandler * DISCHARGE SUMMARY: DATE OF ADMISSION: 07/01/18 DATE OF DISCHARGE: 07/09/18 PROVIDER: Karla Valencia NP ATTENDING PHYSICIAN: Dr. Iqbal * (dictated by Karla Valencia NP). PRIMARY CARE PROVIDER: Dr. Chiki Chandler. PRIMARY DIAGNOSIS: Multiple sclerosis exacerbation, progression. SECONDARY DIAGNOSES: 1. Optic neuritis. 2. Depression. 3. Asthma. 4. Migraines. 5. Urinary incontinence. 6. History of left femoral deep venous thrombosis. 7. Myositis of the hip and jaw. STUDIES COMPLETED WHILE IN THE HOSPITAL: She had an electrocardiogram on , which showed sinus rhythm at a rate of 83. She had an electroencephalogram on 07/02/18. Impression: This is an abnormal awake and drowsy EEG, diffuse polymorphic slowing with superimposed diffuse delta wave slowing lasting 1 to 3 seconds and rare sharp spike, slowing wave discharge in the central region. Otherwise, there were some areas where there were discernible reactivity and organization. These findings are suggestive of [id number] nonspecific encephalopathy with increased echogenic potential emanating from the central region. She had an MRI of the brain on 07/05/18. Radiologist's impression: No evidence of acute intracranial abnormality. Multiple focal areas of increased signal intensity on T2 weighted images present in the subcortical and periventricular white matter, lani, medulla, cervical cord, and cerebellum, unchanged consistent with the patient's history of multiple sclerosis, no abnormal enhancement is seen. DISCHARGE MEDICATIONS: 1. Acetaminophen 650 mg p.o. q.4 hours as needed. 2. Symmetrel 100 mg p.o. b.i.d. 3. Baclofen 15 mg p.o. b.i.d. 4. Rexulti 1 mg p.o. daily. 5. Tegretol 200 mg p.o. b.i.d. 6. Vitamin B12 1000 mcg p.o. daily. 7. Folic acid 1 mg p.o. daily. 8. Levothyroxine 50 mcg p.o. daily. 9. Linzess 290 mcg p.o. daily. 10. Eakly 900 mg p.o. at bedtime. 11. Concerta ER tab 36 mg p.o. daily. 12. Zofran 4 mg p.o. q.6 hours as needed for nausea. 13. Ditropan 5 mg p.o. q.a.m. 14. Ditropan 10 mg p.o. q.p.m. 15. Protonix 40 mg p.o. daily. 16. MiraLAX 17 g p.o. daily p.r.n. constipation. 17. Potassium chloride 10 mEq p.o. daily. 18. Viibryd 40 mg p.o. daily. 19. Eucerin cream topically t.i.d. as needed. 20. oxycodone 10 mg every 4 hours as needed for pain HISTORY OF PRESENT ILLNESS AND HOSPITAL COURSE: Ms. Cisneros is a 48-year-old female with a past medical history significant for multiple sclerosis, seizures that was recently diagnosed, who presented to the emergency room due to the fact of her caregiver concern about her living alone. The caregiver reports that the patient is having memory issues, confusion, blurred vision, and seems weaker than her baseline. She occasionally is having slurred speech. The patient does report she has a history of optic neuritis, occasional slurred speech, and blurred vision, but that this is not new for her. On admission to the hospital, the patient had no complaints other than short-term memory issues and weakness. During the hospitalization, the patient had no improvement of her symptoms. The patient is unable to transfer herself due to weakness and wanted to proceed with short-term rehab, but due to her progression of MS. The patient was considering hospice but at this time would like to continue with short term rehab. At this time has a bed offer at [facility] for short-term rehab. She had no other events during the hospitalization. She did have an MRI of the brain that did not show any acute changes of her MS. She did receive Solu-Medrol 500 mg IV x1 with no improvement of her symptoms. The patient continues to have confusion and short-term memory issues. She is alert to self and place, but confused to time and situation and has definite generalized weakness. She was seen in consultation by Neurology during this hospitalization, who felt that this was a progression of her MS. Again, she did have an MRI of the brain that showed no changes in lesions or any acute abnormalities and did have a trial of Solu-Medrol 500 mg IV with no improvement of her symptoms. Given this , the patient will go to short-term rehab and she will be discharged to [facility]. Ms. Cisneros is stable for discharge to [facility]. Vital signs are as follows: Blood pressure was 112/72, heart rate 77, respirations 18, O2 saturation 100%, temperature was 97.6. DISCHARGE PLAN: Ms. Cisneros will be discharged to [facility]. Activity as tolerated. She should continue on a mechanically ground diet with thin liquids. 1. Multiple sclerosis. The patient is not currently on any medications due to the fact of her recent MS medications causing hematuria and the patient was to have followup with Urology prior to restarting any MS medications. If the patient wishes to proceed with treatment for her MS, she should follow up with Dr. Lara in 6 weeks. She can continue on her baclofen as needed for spasm. 2. Seizure. She should continue on Tegretol 200 mg p.o. b.i.d. She should have a Tegretol level drawn in 1 week. 3. Urinary incontinence. She can continue on Ditropan as previously prescribed. 4. Depression. She should continue on her medications as previously prescribed. FOLLOWUP: The patient should follow up with Dr. Lara for her MS treatment in approximately 6 weeks. She should have repeat Tegretol level in 1 week. She should follow up with her primary care provider in 4 to 7 days. This is a summarization of her hospitalization. For further details, please see the entire medical record. TIME SPENT: Time spent on this discharge was approximately 60 minutes, greater than half the time was spent with the patient discussing discharge plans and instructions. CONDITION ON DISCHARGE: Stable. KARLA VALENCIA, DONNY [id number]/CPS #: [id number] SHIRA
[2018-07-09 12:47] VITALS: BP 122/76
[2018-07-09] MEDS ORDERED: oxyCODONE TAB* 5 MG TAB PO PRN (14:41)
--- NOTE | 2018-07-11 22:43 | PN ---
Subjective Date of Service: 07/09/18 Interval History: patient reports that she would like to continue physical therapy to regain strength for pivoting. Denies chest pain or shortness of breath. denies abd pain n/v/d. continued to report difficulty with short term memory Family History: Unchanged from Admission Social History: Unchanged from Admission Past Medical History: Unchanged from Admission Objective Oxygen Devices in Use Now: None Appearance: alert, no acute distress Eyes: No Scleral Icterus Ears/Nose/Mouth/Throat: Mucous Membranes Moist Neck: NL Appearance and Movements; NL JVP, Trachea Midline Respiratory: Symmetrical Chest Expansion and Respiratory Effort, Clear to Auscultation Cardiovascular: NL Sounds; No Murmurs; No JVD, No Edema Abdominal: NL Sounds; No Tenderness; No Distention Extremities: No Edema, No Clubbing, Cyanosis Skin: No Rash or Ulcers, - - oriented to place and person, confusion to events at times Neurological: - Result Diagrams: 07/09/18 07:19 07/09/18 07:19 Assess/Plan/Problems-Billing Assessment: Ms. Cisneros is a 48 y.o female with pmhx of MS, sz, hypothyroid who presented to the ER for evaluation of weakness. - Patient Problems (1) Weakness Status: Acute Code(s): R53.1 - WEAKNESS SNOMED Code(s): 54456588 Comment: acute on chronic- suspect this is related to progressive MS PT eval social work instructor for placement- patient would like to continue with PT HCP- requesting hospice referral (2) Seizure Status: Acute Code(s): R56.9 - UNSPECIFIED CONVULSIONS SNOMED Code(s): 99264997 Comment: recent diagnosis of seizure, continue carbamazepine (3) Multiple sclerosis Status: Chronic Code(s): G35 - MULTIPLE SCLEROSIS SNOMED Code(s): 87517686 Comment: - patient with progressively worsening MS - MRI brain no acute changes - no improvement with solumedrol - HCP requesting hospice referral (4) History of DVT (deep vein thrombosis) Status: Chronic Code(s): Z86.718 - PERSONAL HISTORY OF OTHER VENOUS THROMBOSIS AND EMBOLISM SNOMED Code(s): 029535802 Comment: lovenox subq for dvt prop (5) Hypothyroidism Status: Chronic Code(s): E03.9 - HYPOTHYROIDISM, UNSPECIFIED SNOMED Code(s) : 80019081 Comment: on levothyroxine 50mcg (recently decreased) repeat level in 4-6 weeks (6) DVT prophylaxis Status: Acute Priority: Medium Code(s): CZJ2849 - SNOMED Code(s): 689050631 Comment: history of DVT. continue lovenox subQ (7) DNR (do not resuscitate) Status: Acute Status and Disposition: social work instructor/CM working on placement- [facility]
== END 2018-07-09 16:10 | DRG 59 ==
LOC: ED 15:40 → MED 17:48 → OBSVTOIN 07-05 15:50
PROVIDERS: ADMIT Internal Medicine; ATTEND Internal Medicine
DX: G35 Multiple sclerosis (principal); H46.9 Unspecified optic neuritis; F32.9 Major depressive disorder, single episode, unspecified; J45.909 Unspecified asthma, uncomplicated; G43.909 Migraine, unspecified, not intractable, without status migrainosus; Z66 Do not resuscitate; E53.8 Deficiency of other specified B group vitamins; R32 Unspecified urinary incontinence; G31.84 Mild cognitive impairment of uncertain or unknown etiology; M60.89 Other myositis, multiple sites; E03.9 Hypothyroidism, unspecified; Z86.718 Personal history of other venous thrombosis and embolism; Z79.1 Long term (current) use of non-steroidal anti-inflammatories (NSAID); Z79.891 Long term (current) use of opiate analgesic; Z79.899 Other long term (current) drug therapy; Z88.6 Allergy status to analgesic agent; Z91.030 Bee allergy status; Z88.0 Allergy status to penicillin; Z88.2 Allergy status to sulfonamides; Z91.018 Allergy to other foods; Z82.49 Family history of ischemic heart disease and other diseases of the circulatory system; Z83.3 Family history of diabetes mellitus; Z83.438 Family history of other disorder of lipoprotein metabolism and other lipidemia
CPT/HCPCS: 36415; 70553; 80048; 80053; 80156; 80178; 80320; 81003; 82140; 82565; 83605; 84443; 84484; 84520; 85014; 85018; 85025; 85049; 85610; 93005; 95816; 99284; A9270-GY; A9579; G0378; G0480; G8978-GP-CM; G8979-GP-CJ; G8987-GO-CL; G8988-GO-CI; J1642; J1650; J2930; J3420

== ENCOUNTER 2018-11-01 15:24 | Inpatient (IN) | payer MEDICARE, MEDICAID ==
[2018-11-01] MEDS ORDERED: NS 0.9% 1000 ML** 1,000 ML IV ONE (15:54)
--- OUTSIDE RECORDS SUMMARY | 2018-11-01 15:58 | XMS REPORT ---
:1970 Author Organization [facility] Care Team Providers Name Role Phone Michael Dooley Unavailable Unavailable PROBLEMS Unknown Problems ALLERGIES No Information ENCOUNTERS Encounter Location Date Diagnosis [address] Jan, [address] Jan, [address] October, [address] Sep, [address] Sep, [address] Aug, [address] Jul, [address] Jul, [place] [address] [facility] [address] [place], [place] Jul, Dental [address] Jul, [address] [facility] [address] [place], [place] May, [address] Apr, [address] [facility] [address] [place] [address] Apr, [place] [address] Mar, [address] IMMUNIZATIONS No Known Immunizations SOCIAL HISTORY Never Assessed REASON FOR REFERRAL FUNCTIONAL STATUS PLAN OF CARE VITAL SIGNS MEDICATIONS Unknown Medications PROCEDURES Procedure Date Ordered Result Body Site Follow Up Contract Procedure October 28, 2018 RESULTS No Results REASON FOR VISIT adj Insurance Providers [facility] Member Patient Patient Patient Patient Patient Subscriber Subscriber Subscriber Group Insurance Plan Plan Plan Plan ID Relationship Address Phone Name Date of ID Name Date of No Type Insurance Insurance Insurance Coverage to Subscriber Address Phone Name Dates Aetna [phone] Aetna self Karla [id number] Medicare [id number] [address] Medicare [place] Adv [place] [phone] Medicaid [address] [phone] Medicaid self Karla [id number] [facility] [address] [address] i[address]le [phone] [employer] self Karla [id number] [id number] [place] [phone] [place] [employer] Claims [employer] Dept [facility] [address]
--- OUTSIDE RECORDS SUMMARY | 2018-11-01 15:59 | XMS REPORT ---
:1970 Author Organization [facility] Care Team Providers Name Role Phone Michael Dooley Unavailable Unavailable PROBLEMS Unknown Problems ALLERGIES No Information ENCOUNTERS Encounter Location Date Diagnosis [facility] [address] [place], [place] October, [address] Sep, [address] [facility] [address] [place] [address] Sep, [address] [facility] [address] [place] [address] Aug, [address] Jul, [address] [facility] [address] [facility] Jul, [place] [address] [facility] [address] [place], [place] Jul, Dental [address] [place] [id number] [place], [place] Jul, [address] [facility] [address] [place], [place] May, [address] Apr, [address] [facility] [address] [facility] Apr, [place] [address] [facility] [address] [place], [place] Mar, [address] IMMUNIZATIONS No Known Immunizations SOCIAL HISTORY Never Assessed REASON FOR REFERRAL FUNCTIONAL STATUS PLAN OF CARE VITAL SIGNS MEDICATIONS Unknown Medications PROCEDURES Procedure Date Ordered Result Body Site Follow Up Contract Procedure September 30, 2018 RESULTS No Results REASON FOR VISIT Insurance Providers [facility] Health Member Patient Patient Patient Patient Patient Subscriber Subscriber Subscriber Group Insurance Plan Plan Plan Plan ID Relationship Address Phone Name Date of ID Name Date of No Type Insurance Insurance Insurance Coverage to Subscriber Address Phone Name Dates Aetna [phone] Aetna self Karla [id number] Medicare [id number] Medicare [place] Adv [place] [phone] [employer] [phone] i[employer] self Karla [id number] [place] [phone] [phone] [place] Bl[place] [employer] Claims [employer] Dept [facility] [address] Medicaid [address] [phone] Medicaid self Karla [id number] [facility] [address] [address]
--- OUTSIDE RECORDS SUMMARY | 2018-11-01 15:59 | XMS REPORT ---
:1970 Author Organization [facility] Care Team Providers Name Role Phone Michael Dooley Unavailable Unavailable PROBLEMS Unknown Problems ALLERGIES No Information ENCOUNTERS Encounter Location Date Diagnosis [facility] [address] [place], [place] October, [address] [place] [id number] [place], [place] Sep, [address] [facility] [address] [place], [place] Sep, [address] [facility] [address] [place] [address] Aug, [address] Jul, [address] [facility] [address] [facility] Jul, [place] [address] [facility] [address] [place], [place] Jul, Dental [address] [place] [address] [place], [place] Jul, [address] [facility] [address] [place], [place] May, [address] Apr, [address] [facility] [address] [facility] Apr, [place] [address] [facility] [address] [place], [place] Mar, [address] IMMUNIZATIONS No Known Immunizations SOCIAL HISTORY Never Assessed REASON FOR REFERRAL FUNCTIONAL STATUS PLAN OF CARE VITAL SIGNS MEDICATIONS Unknown Medications PROCEDURES Procedure Date Ordered Result Body Site Complete Contract Procedure October 14, 2018 RESULTS No Results REASON FOR VISIT Insurance Providers [facility] Member Patient Patient Patient Patient Patient Subscriber Subscriber Subscriber Group Insurance Plan Plan Plan Plan ID Relationship Address Phone Name Date of ID Name Date of No Type Insurance Insurance Insurance Coverage to Subscriber Address Phone Name Dates Aetna [phone] Aetna self Karla [id number] Medicare [id number] 56 Medicare [place] Adv [place] [phone] [employer] [phone] i[employer] self Karla [id number] [phone] [place] [address] [phone] [place] Blayne ULTC [employer] Claims [employer] Dept [facility] [address] Medicaid [address] [phone] Medicaid self Karla [id number] [place] [address] [place] [id number]
--- NOTE | 2018-11-01 16:14 | ED ---
Neurological HPI - HPI Summary HPI Summary: 48-year-old female presents with increasing weakness to her bilateral leg since last night. She states that it took her 30 minutes to transfer from a toilet to wheelchair. She uses a wheelchair to get around. She has a history of MS. She also admits shortness of breath. she denies any dizziness. No headache. No difficulties with speech. No weakness into her arms. No urinary symptoms. No abdominal pain. No nausea vomiting or diarrhea. she admits to shortness of breath that started last night. She has had a cough for the past hour. It is not productive. no chest pain. has had this weakness before but never this severe. - History of Current Complaint Chief Complaint: EDGeneral Stated Complaint: SOB PER EMS Time Seen by Provider: 11/01/18 15:40 Pain Intensity: 0 - Additional Pertinent History Primary Care Physician: [id number] - Allergy/Home Medications Allergies/Adverse Reactions: Allergies Allergy/AdvReac Type Severity Reaction Status Date / Time bee venom protein (honey bee) Allergy Severe See Comment Verified 11/01/18 15:44 onion Allergy Severe See Comment Verified 11/01/18 15:44 Sulfa (Sulfonamide Allergy Severe Unknown Verified 11/01/18 15:44 Antibiotics) Reaction Details aspirin Allergy Intermediate Nausea Verified 11/01/18 15:44 Penicillins Allergy Intermediate See Comment Verified 11/01/18 15:44 [place] And Derivatives Allergy Unknown See Comment Verified 11/01/18 15:44 Home Medications: Home Medications Acetaminophen [Tylenol Extra Strength] 500 - 1,000 mg PO Q6HR PRN 11/01/18 [ History Confirmed 11/01/18] Aspirin/Acetaminophen/Caffeine [Excedrin Migraine Caplet] 2 tab PO DAILY PRN [History Confirmed 11/01/18] Bisacodyl EC TAB* [Dulcolax EC TAB*] 5 mg PO QPM 11/01/18 [History Confirmed ] Diazepam TAB(*) [Valium TAB(*)] 5 mg PO BID 11/01/18 [History Confirmed 11/01/18 ] Docusate CAP* [Colace Cap*] 100 mg PO QAM 11/01/18 [History Confirmed 11/01/18] Docusate CAP* [Colace Cap*] 200 mg PO QPM 11/01/18 [History Confirmed 11/01/18] Fexofenadine (NF) [Nellie 180 (NF)] 180 mg PO DAILY 11/01/18 [History Confirmed 11/01/18] Winder Carbonate ER TAB* 900 mg PO BEDTIME 11/01/18 [History Confirmed 11/01/18 ] Magnesium Oxide TAB* [MagOx 400 TAB*] 400 mg PO QPM 11/01/18 [History Confirmed 11/01/18] Mirabegron (NF) [Myrbetriq (NF)] 50 mg PO QAM 11/01/18 [History Confirmed ] Morphine TAB Extended Rel(*) [Ms Contin(*)] 30 mg PO BID 11/01/18 [History Confirmed 11/01/18] Naproxen TAB* [Naprosyn 250 mg TAB*] 500 mg PO QPM 11/01/18 [History Confirmed 11/01/18] Oxycodone TAB(NF) [Oxycodone HCl 10 MG] 10 mg PO Q12HR PRN 11/01/18 [History Confirmed 11/01/18] Sennosides [Vegetable Laxative] 8.6 mg PO QPM 11/01/18 [History Confirmed ] Turmeric 400 mg PO DAILY 11/01/18 [History Confirmed 11/01/18] PMH/Surg Hx/FS Hx/Imm Hx Endocrine/Hematology History: Reports: Hx Thyroid Disease Denies: Hx Diabetes, Hx Anemia, Hx Unexplained Bleeding, Other Endocrine/ Hematological Disorders Cardiovascular History: Denies: Hx Aneurysm, Hx Angina, Hx Angioplasty, Hx Auto Implanted Cardiovert Defib, Hx Cardiac Arrest, Hx Cardiomegaly, Hx Congenital Heart Disease, Hx Congestive Heart Failure, Hx Coronary Artery Disease, Hx Deep Vein Thrombosis, Hx Embolism, Hx Hypercholesterolemia, Hx Hypotension, Hx Hypertension, Hx Pacemaker/ICD, Hx Peripheral Vascular Disease, Hx Rheumatic Fever, Hx Syncope, Hx Valvular Heart Disease, Other Cardiovascular Problems/Disorders Respiratory History: Reports: Hx Asthma - as a child, Hx Pulmonary Embolism, Hx Sleep Apnea Denies: Hx Chronic Bronchitis, Hx Chronic Obstructive Pulmonary Disease (COPD ), Hx Cystic Fibrosis, Hx Lung Cancer, Hx Pleural Effusion, Hx Pneumonia, Hx Pulmonary Edema, Hx Seasonal Allergies, Other Respiratory Problems/Disorders GI History: Reports: Hx Gastroesophageal Reflux Disease, Hx Ulcer Denies: Hx Gastrointestinal Bleed, Hx Hiatal Hernia History: Reports: Other Problems/Disorders - urinary incontinence Denies: Hx Dialysis, Hx Kidney Stones, Hx Renal Disease Musculoskeletal History: Reports: Hx Arthritis - knees, right hand, Hx Back Problems, Other Musculoskeletal History - MS Denies: Hx Bursitis, Hx Congenital Bone Abnormalities, Hx Fibromyalgia, Hx Gout, Hx Orthopedic Injury, Hx Osteoporosis, Hx Scoliosis, Hx Tendonitis Sensory History: Reports: Hx Contacts or Glasses, Other Sensory Impairments - Numbness in feet Denies: Hx Cataracts, Hx Eye Injury, Hx Eye Prosthesis, Hx Glaucoma, Hx Legally Blind, Hx Macular Degeneration, Hx Vision Problem, Hx Deafness, Hx Hearing Aid, Hx Hearing Problem Opthamlomology History: Reports: Hx Contacts or Glasses, Other Sensory Impairments - Numbness in feet Denies: Hx Cataracts, Hx Eye Injury, Hx Eye Prosthesis, Hx Glaucoma, Hx Legally Blind, Hx Macular Degeneration, Hx Vision Problem Neurological History: Reports: Hx Headaches, Hx Migraine, Hx Nerve Disease, Hx Seizures - new dx of seizures (06/30/18), Other Neuro Impairments/Disorders - MS Denies: Hx Dementia, Hx Developmental Delay, Hx Spinal Cord Injury, Hx Transient Ischemic Attacks (TIA) Psychiatric History: Reports: Hx Anxiety, Hx Depression, Hx Suicide Attempt, Hx Substance Abuse Denies: Hx Attention Deficit Hyperactivity Disorder, Hx Eating Disorder, Hx Panic Disorder, Hx Post Traumatic Stress Disorder, Hx Inpatient Treatment, Hx Community Mental Health Tx, Hx Schizophrenia, Hx Bipolar Disorder, Hx of Violent Episodes Against Others, Other Psychiatric Issues/Disorders - Cancer History Hx Chemotherapy: Yes - For MS Hx Radiation Therapy: No - Surgical History Surgery Procedure, Year, and Place: BREAST REDUCTION 2005, oral surgeries Hx Anesthesia Reactions: No - Immunization History Date of Tetanus Vaccine: Unknown Date of Influenza Vaccine: Unk re: Fall 2014 Infectious Disease History: No Infectious Disease History: Denies: Hx Clostridium Difficile, Hx Hepatitis, Hx Human Immunodeficiency Virus (HIV), Hx of Known/Suspected MRSA, Hx Shingles, Hx Tuberculosis, Hx Known/ Suspected VRE, Hx Known/Suspected VRSA, History Other Infectious Disease, Traveled Outside the [place] in Last 30 Days - Family History Known Family History: Positive: Cardiac Disease - Father, Diabetes Family History: FHx of spina bifida - Social History Alcohol Use: None 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 Negative: Cough Positive: Weakness All Other Systems Reviewed And Are Negative: Yes Physical Exam Triage Information Reviewed: Yes Vital Signs On Initial Exam: Initial Vitals Temp Pulse Resp BP Pulse Ox 97.8 F 87 19 111/69 97 11/01/18 15:42 11/01/18 15:42 11/01/18 15:42 11/01/18 15:42 11/01/18 15:42 Vital Signs Reviewed: Yes Appearance: Positive: Well-Appearing Skin: Positive: Warm, Dry Head/Face: Positive: Normal Head/Face Inspection Eyes: Positive: Normal, EOMI, LUIS, Conjunctiva Clear ENT: Positive: Normal ENT inspection, Pharynx normal, TMs normal Respiratory/Lung Sounds: Positive: Clear to Auscultation, Breath Sounds Present Cardiovascular: Positive: Normal, RRR Abdomen Description: Positive: Nontender, Soft Bowel Sounds: Positive: Present Musculoskeletal: Positive: Strength/ROM Intact - arms, Limited @ - unable to lift legs against resistance, when lift legs can hold them up for a second before drop, Other - good pulses Neurological: Positive: Alert, Oriented to Person Place, Time, CN Intact II-III , Reflexes Intact - hyperreflexic. Negative: Sensory/Motor Intact Psychiatric: Positive: Normal Diagnostics - Vital Signs Vital Signs Temp Pulse Resp BP Pulse Ox 11/01/18 15:42 97.8 F 87 19 111/69 97 - Laboratory Result Diagrams: 11/01/18 17:03 11/01/18 17:03 Lab Statement: Any lab studies that have been ordered have been reviewed, and results considered in the medical decision making process. - Radiology chest Radiology Interpretation Completed By: Radiologist Summary of Radiographic Findings: IMPRESSION: NO ACTIVE CARDIOPULMONARY DISEASE. - CT brain CT Interpretation Completed By: Radiologist Summary of CT Findings: IMPRESSION: NO ACUTE INTRACRANIAL PATHOLOGY. CHRONIC SMALL VESSEL ISCHEMIC CHANGE cta CT Interpretation Completed By: Radiologist Summary of CT Findings: IMPRESSION: No pulmonary emboli. No additional findings to correlate with patient's. symptomatology. - EKG No standard instances Cardiac Rate: NL EKG Rhythm: Sinus Rhythm EKG Comparison: No Significant Change Summary of EKG Findings: sinus rhythm Re-Evaluation - Re-Evaluation First Eval Comment: weakness is still the same Second Eval Comment: discussed results with patient Third Eval Re-Evaluation Time: 21:54 Comment: went to MRI with alo to push contrast for exam Course/Dx - Course Course Of Treatment: 48-year-old female presents with increasing weakness to her bilateral leg since last night. She states that it took her 30 minutes to transfer from a toilet to wheelchair. She uses a wheelchair to get around. She has a history of MS. She also admits shortness of breath. she denies any dizziness. No headache. No difficulties with speech. No weakness into her arms. No urinary symptoms. No abdominal pain. No nausea vomiting or diarrhea. she admits to shortness of breath that started last night. She has had a cough for the past hour. It is not productive. no chest pain. has had this weakness before but never this severe. on exam lungs CTA. heart RRR. ekg shows sinus rhythm. has weakness to leg. unable to lift legs against gravity. when I lift legs able to hold legs up for a couple seconds. no other neuro deficit noted. CT brain normal. chest xray normal. d-dimer elevated. CTA normal. discussed with dr arrington and said to get MRI brain, cervical and thoracic with and without and admission and to hold on steriods at this time. discussed with dr kinney who agrees to admit - Differential Dx Differential Diagnoses Neuro: Positive: Metabolic Abnormality, Pulmonary Embolism, Other - MS - Diagnoses Provider Diagnoses: Multiple sclerosis, Weakness, Shortness of breath Discharge - Sign-Out/Discharge Documenting (check all that apply): Patient Departure - Discharge Plan Condition: Stable Disposition: ADMITTED TO [facility] - Billing Disposition and Condition Condition: STABLE Disposition: Admitted to [facility]
[2018-11-01 17:29] LABS: ABS Lymphocytes 0.9 10^3/ul (1.0-4.8); ABS Monocytes 0.6 10^3/ul (0-0.8); ABS Neutrophils 2.7 10^3/ul (1.5-7.7); Hematocrit 39 % (35-47); Mean Corpuscular HGB Conc 33 g/dL (31-36); Mean Corpuscular Hemoglobin 30 pg (27-31); Mean Corpuscular Volume 89 fL (80-97); Mean Platelet Volume 8.7 fL (7.4-10.4); Nucleated Red Blood Cells % 0.1; Platelet Count 330 10^3/uL (150-450); Red Blood Count 4.37 10^6 /uL (3.70-4.87); Red Cell Distribution Width 15 % (10.5-15); White Blood Count 4.3 10^3/uL (3.5-10.8)
[2018-11-01 17:32] LABS: INR 0.97 (0.82-1.09)
[2018-11-01 17:40] LABS: Urine Appearance Clear; Urine Bilirubin Negative (Negative); Urine Blood Negative (Negative); Urine Color Yellow; Urine Glucose Negative (Negative); Urine Ketones Negative (Negative); Urine Nitrite Negative (Negative); Urine Protein Negative (Negative); Urine Specific Gravity 1.012 (1.010-1.030); Urine Urobilinogen Negative (Negative)
[2018-11-01 18:26] LABS: TSH (Thyroid Stimulating Horm) 8.42 mcIU/mL (0.34-5.60)
[2018-11-01 18:29] LABS: Troponin I 0.01 ng/mL (<0.04)
[2018-11-01 18:55] LABS: Albumin 4.2 g/dL (3.2-5.2); Albumin/Globulin Ratio 1.6 (1-3); BUN/Creatinine Ratio 11.4 (8-20); C Reactive Protein 1.32 mg/L (<8.01); Calcium 9.9 mg/dL (8.6-10.3); EGFR African American 82.6 (>60); EGFR Non-African American 68.3 (>60); Globulin 2.7 g/dL (2-4); Potassium 3.7 mmol/L (3.5-5.0); Total Bilirubin 0.3 mg/dL (0.2-1.0); Total Protein 6.9 g/dL (6.4-8.9)
[2018-11-01] MEDS ORDERED: Iohexol 350* (CONTRAST) 500 ML MDV IV ONE (19:00)
[2018-11-01 20:01] LABS: Free T4 0.54 ng/dL (0.61-1.12)
[2018-11-01] MEDS ORDERED: Gadoteridol* (CONTRAST) 279.3 MG/ML 10 ML IV ONE (21:04)
[2018-11-01] MEDS ORDERED: ASA-APAP-CAFFEINE ES (NF) 1 TAB TAB PO PRN (23:01)
[2018-11-01] MEDS ORDERED: Acetaminophen TAB* 325 MG PO PRN (23:04)
[2018-11-02] MEDS: Oxybutynin XL TAB* 5 MG PO SCH ×2 (00:48→17:56)
[2018-11-02] MEDS: Diazepam TAB(*) 5 MG PO SCH ×3 (00:49→20:25)
[2018-11-02] MEDS: Docusate CAP* 100 MG PO SCH ×3 (00:50→17:59)
[2018-11-02] MEDS: Morphine TAB Extended Release (*) 30 MG TAB.ER PO SCH ×3 (00:51→20:25)
[2018-11-02] MEDS: Magnesium Oxide TAB* 400 MG PO SCH ×2 (00:52→17:58)
[2018-11-02] MEDS: Naproxen TAB* 250 MG PO SCH ×2 (00:52→17:58)
[2018-11-02] MEDS: carBAMazepine TAB(*) 200 MG PO SCH ×3 (00:53→20:25)
[2018-11-02] MEDS: Lithium Carbonate ER* 450 MG TAB.ER PO SCH ×2 (00:57→20:26)
[2018-11-02] MEDS: Amantadine CAP* 100 MG PO SCH ×3 (00:58→20:26)
[2018-11-02] MEDS: Senna TAB PO SCH ×2 (01:35→17:59)
--- NOTE | 2018-11-02 02:39 | HP ---
HISTORY AND PHYSICAL: DATE OF ADMISSION: 11/01/18 ADMITTING PROVIDER: Дмитрий Rutledge MD PRIMARY CARE PROVIDER: Dr. Mcgraw. OUTPATIENT NEUROLOGIST: Dr. Tim Lara on [facility], Neurology; Dr. Abraham; Dr. Lubin, [facility]. OUTPATIENT PSYCHIATRIST: Dr. Jones. OUTPATIENT UROLOGIST: Dr. Herrmann. CHIEF COMPLAINT: Worsened generalized weakness, shortness of breath. HISTORY OF PRESENT ILLNESS: Karla Cisneros is a 48-year-old female with a past medical history of progressive relapsing multiple sclerosis, seizure disorder, asthma, depression, optic neuritis, provoked DVT, myositis of the hip and jaw, hypothyroidism, chronic lower back pain. She was taken off of her Concerta about 1 week ago and has been off of active MS treatments since April 2018 ( last was Cytoxan, stopped due to concern for hemorrhagic cystitis). She had previously been on dimethyl fumarate between 2015 and 2017 and there is some plan to possibly put her on Gilenya. So her chief complaint is the night prior to admission and continuing and even worse on the day of admission, she had difficulty getting up off the toilet, transferring between her wheelchair and recliner or out of the recliner into the wheelchair to be able to get back in bed, so she slept in the recliner all night long. She had some sensation that some-thing was stuck in the back of her throat and gave her the feeling that she was short of breath. It was not positional. She had these symptoms for a couple of months about 2 years ago that self-resolved and did not talk to her providers about. She is also complaining of some chills for a few days, had been coughing for a few days, which she describes as productive in the a.m. only and " green but not green". She has had some horizontal double vision and some word-finding difficulties since the middle of last week. She has since seen Dr. Chandler since that time, but was unable to address those concerns given the fact that she had to address her chief complaint of pain only. Upon presentation to [facility] Emergency Room, initial workup has included a chest x-ray with no acute process. CT head with no acute process, but perhaps small vessel ischemic changes. Her D-dimer was elevated at 382, so a CT chest angiogram was performed, which showed no evidence of pulmonary embolism. Dr. Gonzalez of Neurology was consulted and given the concern for increased weakness and with her progressive and relapsing multiple sclerosis, he recommended an MRI of her brain, C-spine and thoracic spine with and without contrast and admission and will be consulting on the patient tomorrow. These have since returned with evidence of stable findings of known multiple sclerosis with demyelinating plaques throughout the thoracic and cervical spine, but no changes of active demyelination. The MRI of brain showed unchanged MS or demyelinating plaques. No changes of acute demyelination. Her TSH is elevated at 8.4, free T4 is low at 0.54. She in June had decrease in dose from 75 to 50 mcg of Synthroid daily given her hyperthyroidism at that time. Urinalysis was negative. She is afebrile and no SIRS criteria without leukocytosis. PAST MEDICAL HISTORY: Multiple sclerosis; progressive and relapsing optic neuritis; asthma; depression; migraines; urinary incontinence; provoked left femoral DVT, myositis of the hip and jaw, obstructive sleep apnea, on CPAP; seizure disorder (June 2018 in the setting of starting Empira) which has since been stopped; chronic lower back pain; history of suspected hemorrhagic cystitis when on Cytoxan, last dose April 2016. MEDICATIONS: Include: 1. Senokot 8.6 mg p.o. q. p.m. 2. Naproxen 500 mg p.o. q. p.m. 3. Oxycodone 10 mg p.o. q.12 hours p.r.n. 4. Dulcolax 5 mg p.o. q. p.m. 5. Magnesium oxide 400 mg p.o. q. p.m. 6. Fexofenadine 180 mg p.o. daily. 7. Valium 5 mg p.o. b.i.d. 8. Oxybutynin 10 mg p.o. q.a.m. 9. Baclofen 20 mg p.o. b.i.d. 10. Excedrin 2 tabs p.o. daily p.r.n. 11. Turmeric 400 mg p.o. daily. 12. Morphine extended release 30 mg p.o. b.i.d. 13. Tylenol between 500 and 1000 mg p.o. q.6 hours p.r.n. 14. Colace 200 mg q. p.m. and 100 mg q. a.m. 15. [place] extended release 900 mg p.o. at bedtime. 16. Myrbetriq 50 mg p.o. q.a.m. 17. Compazine 5 mg p.o. q.6 hours p.r.n. 18. Tegretol 200 mg p.o. b.i.d. 19. Synthroid 50 mcg p.o. q. 0600. 20. Linzess 290 mcg p.o. q. a.m. 21. Rexulti 1 mg p.o. q.a.m. 22. Potassium chloride 10 mEq p.o. q.a.m. 23. Amantadine 100 mg p.o. b.i.d. 24. Viibryd 40 mg p.o. daily. 25. Prilosec 20 mg p.o. q.a.m. ALLERGIES: ASPIRIN (nausea), PENICILLIN (nausea), SULFA (unknown), BEE VENOM, ONION, CITRUS. FAMILY HISTORY: Mother at age 60 of heart attack and also had diabetes. Father her hyperlipidemia. SOCIAL HISTORY: The patient is a former alcoholic, abstaining for decades. Never smoker, no drug use. She is , has an 11-year-old son. Medial surrogate is her ex- Qasim Lino. She desires to be a full code now, wanting to reverse her prior DNR/DNI signed in June in the setting of her seizure. She says it was filled out by Qasim and the MOLST form was updated. REVIEW OF SYSTEMS: Complete 14-point review of systems is negative except as per HPI. PHYSICAL EXAMINATION GENERAL APPEARANCE: In no acute distress. VITAL SIGNS: 98.0, pulse rate 82, respiratory rate 18, sating 96% on room air, blood pressure 101/67. HEENT: Normocephalic and atraumatic. Pupils are equal, round, and reactive to light. Extraocular motions showing rapid saccades and nystagmus horizontally in both eyes and in both directions. NECK: Supple. LUNGS: Anteriorly clear to auscultation with no wheezing, rales, or rhonchi. CARDIOVASCULAR: Regular rate and rhythm. No murmurs, rubs, or gallops. ABDOMEN: Soft and nontender with slight tenderness in the left lower quadrant. No rebound or guarding. No [place] sign. EXTREMITIES: Warm and well perfused. No peripheral edema. SKIN: No lesions. She has a rash underneath her right lower lip going into her chin for which she has been receiving some topical antibiotics with some relief on the left side, but not on the right. It is a flaking, scaly, nonerythematous. NEUROLOGIC: Cranial nerves, she has a slightly reduced sensation in V1 and V2 on the right. V3 are equal. The nystagmus is horizontally bilaterally as above. Otherwise, cranial nerves II through XII intact. Word Processing Supervisor strength is 4- bilaterally. Biceps are 4+ bilaterally. Deltoid are limited by shoulder pain upon testing. She is not antigravity in either hip flexor and would say about 3 /5 in dorsiflexion, plantarflexion. Sensation is intact. LABORATORY DATA: White count 4.3, hemoglobin 13.0, hematocrit 39, platelets 330. INR 0.97. D-dimer 382. Sodium 141, potassium 3.7, chloride 103, carbon dioxide 29, BUN 10, creatinine 0.88, glucose 97, lactic acid 2.0, calcium 9.9. Total bili 0.3, AST 21, ALT 13, alk phos 175. Troponin 0.01, CRP 1.32, BNP 10. TSH 8.42, free T4 0.54. Urinalysis within normal limits. IMAGING: CT head noncontrast demonstrated no acute intracranial pathology, chronic small vessel ischemic changes. Chest x-ray demonstrated no active cardiopulmonary disease. CT chest angiogram demonstrated no evidence for pulmonary embolism or other findings to correlate with the patient's symptomatology. Brain MRI with and without contrast demonstrated unchanged MS associated demyelinating plaques. No changes of acute demyelination. Cervical and thoracic spine MRIs with and without contrast showed stable findings of known multiple sclerosis, associated demyelinating plaques throughout the thoracic spine and cervical spine. No changes of active demyelination. Additionally, there was mild multilevel cervical spondylopathy. EKG demonstrated normal sinus rhythm and T-wave flattening in V4 through V6. No ST elevations or depressions. QTc prolonged at 538, normal axis. ASSESSMENT AND PLAN: Karla Cisneros is a 48-year-old female with a past medical history of progressive and relapsing multiple sclerosis, off active therapies since April 2018 with consideration of her restarting Gilenya, also with history of seizure disorder, asthma, obstructive sleep apnea, chronic back pain , depression; presenting with progressive weakness over the last 24 hours, some subjective shortness of breath and sensation of obstruction in the back of her throat. Dr. Gonzalze was consulted by ED staff and recommended MRI brain, cervical , and thoracic spines with and without contrast on admission and further neurological evaluation. These results have now returned and show stable MS lesions, but no active new demyelination. Medication change was 1 week ago when she was taken of her methylphenidate by Jc Rick NP of Neurology. Additional symptoms include some chills for a few days, occasionally productive cough, and then about 10 days of worsened horizontal double vision, and some word-finding difficulties. There is some concern that most of these symptoms are related to her progressive MS. She is also on multiple medications including benzos, opioids, 2 antidepressants, baclofen, lithium. In the setting of as much polypharmacy, it is hard to rule out some elements of medication side effects. I am going to add on levels of Tegretol and lithium. Symptomatology does not seem consistent with partial seizures, but we will follow up Neurology recommendations and could consider an EEG in the morning. She has quite prominent nystagmus in either direction on visual field testing and some V1 and V2 slight numbness on the right. For her chronic pain syndrome, low back pain which she rates as usually 9 out of 10 on the weight gain, we will continue her MS extended release 30 mg p.o. b.i.d. and oxycodone 10 mg p.o. q.12 hours p.r.n. For her hypothyroidism, which does show evidence of elevated TSH and low free T4, I am going to add on total T3 in the morning and increase her Synthroid from 50 to 62.5. This was changed recently from 75 to 50 back in June. For her depression, continue her Viibryd and Rexulti. Describes her current mood as "not so good" given that she is in the emergency room. For her urinary frequency, continue her Myrbetriq and oxybutynin. For her bowel regimen continue her docusate 100 mg q.a.m. and 200 mg q.p.m. and continue her other chronic medications like the amantadine 100 mg p.o. b.i.d., fexofenadine substitute, her Excedrin p.r.n., Linzess, naproxen, Compazine, senna. For her seizure disorder, I will also continue her carbamazepine. She is a full code. MOLST paperwork has been signed. She could eat unrestricted diet. I am putting her on DVT prophylaxis with heparin 5000 t.i.d. She does have a history of a DVT provoked. [id number]/[facility] #: [id number] MTDD
[2018-11-02] MEDS ORDERED: Levothyroxine TAB* 50 MCG TAB PO SCH (06:00)
[2018-11-02 08:02] LABS: Carbamazepine 7.4 mcg/mL (4.0-12.0); Lithium 0.94 mmol/L (0.6-1.2)
[2018-11-02] MEDS: Cetirizine* 10 MG TAB PO SCH (08:18)
[2018-11-02] MEDS: Pantoprazole TAB * 40 MG TAB PO SCH (08:20)
[2018-11-02] MEDS: Heparin VIAL(*) 5000 UNITS/ML VIAL (FIVE THOUSAND) SUBCUT SCH ×3 (08:20→20:32)
[2018-11-02] MEDS: Levothyroxine TAB* 125 MCG TAB PO SCH (08:21)
[2018-11-02] MEDS: BREXPIPRAZOLE 1 MG PO SCH (08:24)
[2018-11-02] MEDS: Mirabegron (NF) 50 MG TAB PO SCH (08:24)
[2018-11-02] MEDS: CMC:Vilazodone (NF) 40 MG TAB PO SCH (08:24)
[2018-11-02] MEDS: oxyCODONE TAB* 5 MG TAB PO PRN ×2 (08:31→20:24)
[2018-11-02] MEDS ORDERED: Cyanocobalamin INJ * 1,000 MCG/ML VIAL 1 ML VIAL IM ONE (08:42)
[2018-11-02] MEDS ORDERED: Baclofen TAB* 20 MG PO SCH (09:00)
--- NOTE | 2018-11-02 15:30 | CONS ---
NEUROLOGY CONSULTATION NOTE: DATE OF CONSULT: 11/02/18 CONSULTED BY: Dr. Hayes Wei. REASON FOR CONSULT: Lower extremity weakness. CHIEF COMPLAINT: Progressive lower extremity weakness that seemed to be worsened over the past 48 hours. HISTORY OF PRESENT ILLNESS: Ms. Cisneros is a pleasant 48-year-old right-handed female with history of secondary progressive multiple sclerosis, who sees Dr. Tim Lara. She is known to me from a previous admission on 07/02/18 where she was complaining of double vision, paraparesis, and memory problems. The patient contacted Dr. Lara's office as she has noticed difficulty transferring from the chair to a nearby commode or her bed. This is apparently a new problem, but looking at the records, she has had similar symptoms in the past for over the past couple of months. The new changes to the patient's medications include discontinuation of the methylphenidate and baclofen. She was also recently evaluated at the [facility] and was going to be started on Gilenya. Important to note that the patient was on Cytoxan in the past and she developed hemorrhagic cystitis. She also was on dimethyl fumarate, but felt that the medication was ineffective. Currently, her main complaint is inability to transport from bed to chair or chair to the bed. I went into the [facility] record and saw the most recent evaluation by Dr. Lara and Jc Rick. The patient was recently seen 3 weeks ago. Motor examination in the lower extremity was graded as 2/3 on the left and 3/4 on the right lower extremity. The patient had the following laboratory testing done in the ER, which included WBC of 4.3, hemoglobin of 13, hematocrit of 39, platelet count of 330, D-dimer of 382. She had a CT of the chest to rule out PE , which was negative. She had a sodium level of 141, potassium of 3.7, chloride of 103, BUN of 10, creatinine of 0.88. TSH is 8.42, free T4 of 0.54, and vitamin B12 was 174. Urinalysis was negative for pyuria. Carbamazepine level was 7.4 and lithium is 0.94. The patient stated that she has not had any recent seizures. PAST MEDICAL HISTORY: Multiple sclerosis, history of optic neuritis, bilateral CYNDY, depression, asthma, migraine headaches, seizures, hemorrhagic cystitis as a complication of cyclophosphamide, spasticity, and left lower DVT. MEDICATIONS: 1. Vilazodone 40 mg p.o. daily. 2. Amantadine 100 mg p.o. b.i.d. 3. Potassium 10 mEq p.o. q.a.m. 4. Oxybutynin 10 mg p.o. q.p.m. 5. Omeprazole 20 mg p.o. in the morning. 6. Linzess 290 mcg p.o. in the morning. 7. Prochlorperazine 5 mg p.o. q.6 hours. 8. Carbamazepine 200 mg p.o. b.i.d. 9. Levothyroxine 50 mcg p.o. daily. 10. Naproxen 500 mg p.o. q.p.m. 11. Oxycodone 10 mg p.o. every 12 hours. 12. Dulcolax 5 mg p.o. at night. 13. Magnesium oxide 400 mg p.o. at night. 14. Fexofenadine 180 mg p.o. daily. 15. Diazepam 5 mg p.o. b.i.d. 16. Aspirin 2 tablets p.o. daily. 17. Turmeric 400 mg p.o. daily. 18. Morphine 30 mg p.o. b.i.d. 19. Acetaminophen 500-1000 p.o. every 6 hours. 20. Docusate 200 mg p.o. at nighttime. 21. [place] 900 mg p.o. at bedtime. 22. Mirabegron 50 mg p.o. in the morning. 23. Sennosides 8.6 mg at night. Please note that she is not taking baclofen. ALLERGIES: BEE VENOM, HONEY BEE, ONION, SULFA, ASPIRIN, PENICILLIN, CITRUS. FAMILY HISTORY: Mother of myocardial infarction. Mother and father also both had hypertension. SOCIAL HISTORY: She is disabled. She denied any tobacco or alcohol use. REVIEW OF SYSTEMS: A 14-point review of systems was obtained and otherwise negative except for what was mentioned in the HPI. PHYSICAL EXAM: Vitals: Temperature 97.7, pulse of 74, respirations 14, oxygen saturation of 100%, blood pressure of 100/53. General: Chronically ill- appearing female, in no acute distress. HEENT: Normocephalic, atraumatic. Scleral icterus. Neck is supple. No nuchal rigidity. Chest: Clear to auscultation bilaterally. Cardiovascular: Regular rate and rhythm with normal S1, S2. Extremities: No clubbing or cyanosis. Skin: Tattoos were noted. Neurological Examination: The patient is awake, alert, and oriented to person, place, time, and general circumstances. She has mild psychomotor slowing. Speech: She has mild dysarthria. Cranial Nerves: Disconjugate gaze as well as bilateral CYNDY. Pupils equal, round, reactive to light and accommodation. No facial asymmetry. She has paraparesis graded as 2-3/5 in the left lower extremity with 3-4/5 in the right lower extremity; she has 4+ in the upper extremities bilaterally. Sensation is intact to light touch throughout. Deep tendon reflexes 2+ in the upper extremities, 3+ at the knees, and she has nonsustained ankle clonus bilaterally, worse on the left. She has bilateral extensor plantar responses. She has dysmetria to [id number] on the left. Gait: She is paraparetic with spasticity in the lower extremities bilaterally and she does not ambulate. DIAGNOSTIC STUDIES: MRI of the brain, C and T-spine completed on 11/01/18, showed no evidence of any new enhancing or nonenhancing demyelinating lesion. There are chronic demyelinating changes consistent with a history of multiple sclerosis. ASSESSMENT AND RECOMMENDATIONS: Ms. Karla Cisneros is a 48-year-old, pleasant, unfortunate patient who has secondary progressive multiple sclerosis with reported relapsing-remitting multiple sclerosis, who was recently evaluated at the [facility] and will be eventually placed on Gilenya. The patient presented to [facility] due to 2-day history of worsening in gait, inability to transfer, and as a consequence, reduced mobility and inability to perform independent activities of daily living. The patient's methylphenidate and baclofen were discontinued last week. She was also noted to have vitamin B12 deficiency. All these findings can be contributing to her worsening ability to transfer and worsening weakness of the lower extremities. Other differential diagnosis includes progression of her multiple sclerosis. There is no evidence of acute multiple sclerosis exacerbation. Therefore, we decided not to treat with high-dose IV steroids. She has no UTI or electrolyte imbalance. I recommend starting cyanocobalamin 1000 mcg injections daily for the next 5 days. She should also continue oral supplements with 1000 mcg daily indefinitely. Follow up with neurologist at the [facility] to start Gilenya. She is pending further evaluation by Ophthalmology prior to starting Gilenya. I am not quite sure why the baclofen was stopped, but this was discontinued by her urologist. Therefore, consulting with urology to see the etiology for discontinuing the medication before restarting it. She clearly was responding well to the Baclofen and needs it for her spasticity. I will sign off as there are no further neurological recommendations or workup to be done at this point. Please follow up with Dr. Lara or Jc Rick within the next 3 weeks. [id number]/[facility] #: [id number] [facility]
[2018-11-02] MEDS: Bisacodyl EC TAB* 5 MG PO SCH (17:56)
[2018-11-02] MEDS ORDERED: oxyCODONE TAB* 5 MG TAB PO ONE (18:31)
--- NOTE | 2018-11-02 19:18 | PN ---
Subjective Date of Service: 11/02/18 Interval History: VS: WNL Lab: TSH elevated, low T4, low B12; Carb and lithium WNL Ms. Cisneros is feeling very weak today. She states this has been progressive x24h before admission. She uses power wheelchair, but transfers on her own, and had difficulty with this. She states that this feels like an MS flair. She denies CP, SOB, abd pain, n/v/d/c, pain in calves. Objective Active Medications: Acetam/Aspirin/Caff/Calcium Glucon (Excedrin Extra Strength 250-250-65 Mg (Nf)) 2 tab PO DAILY PRN Acetaminophen (Tylenol Tab*) 650 mg PO Q6H PRN Amantadine HCl (Symmetrel Cap*) 100 mg PO BID [facility] Bisacodyl (Dulcolax Ec Tab*) 5 mg PO QPM [facility] Brexpiprazole (Rexulti) 1 mg PO QAM [facility] Carbamazepine (Tegretol Tab(*)) 200 mg PO BID [facility] Cetirizine HCl (Zyrtec*) 10 mg PO DAILY [facility]; Protocol Cyanocobalamin (Vitamin B12 Inj *) 1,000 mcg IM DAILY [facility] Diazepam (Valium Tab(*)) 5 mg PO BID [facility] Docusate Sodium (Colace Cap*) 100 mg PO QAM [facility] Docusate Sodium (Colace Cap*) 200 mg PO QPM [facility] Heparin Sodium (Porcine) (Heparin Vial(*)) 5,000 units SUBCUT Q8HR [facility] Levothyroxine Sodium (Synthroid Tab*) 62.5 mcg PO DAILY@0600 [facility] Linaclotide (Linzess (Nf)) 290 mcg PO QAM [facility] [place] Carbonate ([place] Carbonate Er Tab*) 900 mg PO BEDTIME [facility] Magnesium Oxide (Magox 400 Tab*) 400 mg PO QPM [facility] Mirabegron (Myrbetriq (Nf)) 50 mg PO QAM [facility] Morphine Sulfate (Ms Contin(*)) 30 mg PO BID [facility] Naproxen (Naprosyn Tab*) 500 mg PO QPM [facility] Oxybutynin Chloride (Ditropan Xl Tab*) 10 mg PO QPM [facility] Oxycodone HCl (Roxycodone Tab*) 10 mg PO Q12HR PRN Pantoprazole Sodium (Protonix Tab*) 40 mg PO QAM [facility] Prochlorperazine (Compazine Tab*) 5 mg PO Q6H PRN Senna (Senokot Tab*) 1 tab PO QPM [facility] Vilazodone HCl (Viibryd (Nf)) 40 mg PO DAILY [facility] Vital Signs: Temp Pulse Resp BP Pulse Ox 98.1 F 77 18 110/57 100 11/02/18 15:27 11/02/18 15:27 11/02/18 18:35 11/02/18 15:27 11/02/18 15:27 Oxygen Devices in Use Now: None Appearance: Pt is laying in bed. She appears uncomfortable. She does not move often and speaks very softly and slowly. Eyes: No Scleral Icterus, PERRLA, - - Lateral nystagmus, both directions Ears/Nose/Mouth/Throat: NL Teeth, Lips, Gums, Clear Oropharnyx, Mucous Membranes Moist Neck: NL Appearance and Movements; NL JVP, Trachea Midline Respiratory: Symmetrical Chest Expansion and Respiratory Effort, Clear to Auscultation Cardiovascular: NL Sounds; No Murmurs; No JVD, RRR, No Edema Abdominal: NL Sounds; No Tenderness; No Distention, No Hepatosplenomegaly Extremities: No Edema Neurological: Alert and Oriented x 3, - Result Diagrams: 11/01/18 17:03 11/01/18 17:03 Assess/Plan/Problems-Billing Assessment: 48 yof with PMHx MS, optic neuritis, asthma, migraines, urinary incontinence, depression, provoked DVT, myositis (hip, jaw), YASMINE, seizure, LBP who presents with weakness. - Patient Problems (1) Weakness Comment: -Neurology consulted; thank you for the recommendations -Methylphenidate and Baclofen d/c'd last week -DDx: progression of MS, discontinued medications, low B12, hypothyroidism -Record request from urology, [facility] -PT/OT ordered (2) Elevated TSH Comment: -TSH elevated; low T4; awaiting total T3 -Synthroid increased from 50 to 62.5 -Recommend recheck TSH in 4-6 weeks outpatient (3) Vitamin B12 deficiency Comment: -B12 1000 IM x5 days -B12 1000 PO daily (4) Multiple sclerosis Comment: - Patient with progressively worsening MS; Baclofen discontinued by urology - MRI brain no acute changes; likely not exacerbation - Continue home medications; follow up with [facility] at discharge to discuss Gilenya (5) DVT prophylaxis Comment: -Heparin SQ (6) Full code status Status and Disposition: Observation. Discharge when stable.
[2018-11-03] MEDS: Levothyroxine TAB* 125 MCG TAB PO SCH (05:45)
[2018-11-03] MEDS: Heparin VIAL(*) 5000 UNITS/ML VIAL (FIVE THOUSAND) SUBCUT SCH ×3 (05:46→21:28)
[2018-11-03] MEDS: Prochlorperazine TAB* 5 MG PO PRN (07:47)
[2018-11-03] MEDS: Docusate CAP* 100 MG PO SCH ×2 (08:35→16:04)
[2018-11-03] MEDS: CMC:Vilazodone (NF) 40 MG TAB PO SCH (08:35)
[2018-11-03] MEDS: Pantoprazole TAB * 40 MG TAB PO SCH (08:35)
[2018-11-03] MEDS: carBAMazepine TAB(*) 200 MG PO SCH ×2 (08:36→20:13)
[2018-11-03] MEDS: Amantadine CAP* 100 MG PO SCH ×2 (08:36→20:12)
[2018-11-03] MEDS: Diazepam TAB(*) 5 MG PO SCH ×2 (08:37→20:12)
[2018-11-03] MEDS: Cetirizine* 10 MG TAB PO SCH (08:37)
[2018-11-03] MEDS: oxyCODONE TAB* 5 MG TAB PO PRN ×2 (08:38→20:12)
[2018-11-03] MEDS: Morphine TAB Extended Release (*) 30 MG TAB.ER PO SCH ×2 (08:38→20:13)
[2018-11-03] MEDS: BREXPIPRAZOLE 1 MG PO SCH (08:40)
[2018-11-03] MEDS: Mirabegron (NF) 50 MG TAB PO SCH (08:40)
--- NOTE | 2018-11-03 12:01 | PN ---
Subjective Date of Service: 11/03/18 Interval History: VS: hypo-normotensive Pt states that she continues to have 8/10 pain, but movement of UE is somewhat improved. Pt states that Dr. Lara's REHABILITATION TEAM LEAD took her off Baclofen, Concerta approximately 1 week ago, but this is not the case. It appears that baclofen may have been d/c by urology due to bladder leaking. This is being investigated , as addition of Baclofen back onto medication regimen may be helpful. Pt is agreeable to going to [facility] although she is concerned that she will get "stuck there." Denies CP, SOB, abd pain, n/v/d/c/. Objective Active Medications: Acetam/Aspirin/Caff/Calcium Glucon (Excedrin Extra Strength 250-250-65 Mg (Nf)) 2 tab PO DAILY PRN Acetaminophen (Tylenol Tab*) 650 mg PO Q6H PRN Amantadine HCl (Symmetrel Cap*) 100 mg PO BID [facility] Bisacodyl (Dulcolax Ec Tab*) 5 mg PO QPM [facility] Brexpiprazole (Rexulti) 1 mg PO QAM [facility] Carbamazepine (Tegretol Tab(*)) 200 mg PO BID [facility] Cetirizine HCl (Zyrtec*) 10 mg PO DAILY [facility]; Protocol Cyanocobalamin (Vitamin B12 Inj *) 1,000 mcg IM DAILY [facility] Diazepam (Valium Tab(*)) 5 mg PO BID [facility] Docusate Sodium (Colace Cap*) 100 mg PO QAM [facility] Docusate Sodium (Colace Cap*) 200 mg PO QPM [facility] Heparin Sodium (Porcine) (Heparin Vial(*)) 5,000 units SUBCUT Q8HR [facility] Levothyroxine Sodium (Synthroid Tab*) 62.5 mcg PO DAILY@0600 [facility] Linaclotide (Linzess (Nf)) 290 mcg PO QAM [facility] [place] Carbonate ([place] Carbonate Er Tab*) 900 mg PO BEDTIME [facility] Magnesium Oxide (Magox 400 Tab*) 400 mg PO QPM [facility] Mirabegron (Myrbetriq (Nf)) 50 mg PO QAM [facility] Morphine Sulfate (Ms Contin(*)) 30 mg PO BID [facility] Naproxen (Naprosyn Tab*) 500 mg PO QPM [facility] Oxybutynin Chloride (Ditropan Xl Tab*) 10 mg PO QPM [facility] Oxycodone HCl (Roxycodone Tab*) 10 mg PO Q12HR PRN Pantoprazole Sodium (Protonix Tab*) 40 mg PO QAM [facility] Prochlorperazine (Compazine Tab*) 5 mg PO Q6H PRN Senna (Senokot Tab*) 1 tab PO QPM [facility] Vilazodone HCl (Viibryd (Nf)) 40 mg PO DAILY [facility] Vital Signs: Temp Pulse Resp BP Pulse Ox 98.3 F 79 18 104/63 95 11/03/18 07:30 11/03/18 07:30 11/03/18 10:57 11/03/18 07:30 11/03/18 07:30 Oxygen Devices in Use Now: None Appearance: Pt is laying in bed with LE elevated. She is soft spoken and moves as little as possible, although she is moving the UE more than previous day. She appears somewhat uncomfortable, but in no acute distress. Eyes: No Scleral Icterus, PERRLA, - - Horizontal nystagmus in b/l eyes Ears/Nose/Mouth/Throat: NL Teeth, Lips, Gums, Clear Oropharnyx, Mucous Membranes Moist Neck: NL Appearance and Movements; NL JVP, Trachea Midline Respiratory: Symmetrical Chest Expansion and Respiratory Effort, Clear to Auscultation Cardiovascular: NL Sounds; No Murmurs; No JVD, RRR, No Edema Abdominal: NL Sounds; No Tenderness; No Distention, No Hepatosplenomegaly Extremities: No Edema, No Clubbing, Cyanosis Neurological: Alert and Oriented x 3, - - UE 3/5, b/l LE 2/5 Result Diagrams: 11/01/18 17:03 11/01/18 17:03 Assess/Plan/Problems-Billing Assessment: 48 yof with PMHx MS, optic neuritis, asthma, migraines, urinary incontinence, depression, provoked DVT, myositis (hip, jaw), YASMINE, seizure, LBP who presents with weakness. - Patient Problems (1) Weakness Comment: -Neurology consulted; thank you for the recommendations -Methylphenidate and Baclofen d/c'd last week -DDx: progression of MS, discontinued medications (baclofen), low B12, hypothyroidism -Appears Urology d/c Baclofen; records requested -Restart Baclofen at previous dose of 15mg BID and monitor for improvement -PT/OT ordered (2) Elevated TSH Comment: -TSH elevated; low T4; awaiting total T3 -Synthroid increased from 50 to 62.5 -Recommend recheck TSH in 4-6 weeks outpatient (3) Vitamin B12 deficiency Comment: -B12 1000 IM x5 days -B12 1000 PO daily (4) Multiple sclerosis Comment: - Patient with progressively worsening MS; Baclofen discontinued by urology - Restart Baclofen and assess for improvement - MRI brain no acute changes; likely not exacerbation - Continue home medications; follow up with [facility] at discharge to discuss Juan (5) DVT prophylaxis Comment: -Heparin SQ (6) Full code status Status and Disposition: Inpatient. Awaiting [facility] placement.
[2018-11-03] MEDS: Senna TAB PO SCH (16:02)
[2018-11-03] MEDS: Naproxen TAB* 250 MG PO SCH (16:02)
[2018-11-03] MEDS: Oxybutynin XL TAB* 5 MG PO SCH (16:02)
[2018-11-03] MEDS: Cyanocobalamin INJ * 1,000 MCG/ML VIAL 1 ML VIAL IM SCH (16:02)
[2018-11-03] MEDS: Magnesium Oxide TAB* 400 MG PO SCH (16:02)
[2018-11-03] MEDS: Bisacodyl EC TAB* 5 MG PO SCH (16:04)
--- NOTE | 2018-11-03 18:33 | PN ---
Subjective Date of Service: 11/03/18 Length of Stay: 2 Days Neurology is following for lower extremity spasticity. Interval History: She feels the same with significant weakness and spasticity in the lower extremity. She seemed lethargic today. She was given morphine (home dose) this morning. She has generalized aches and pain. Review of Systems: Denied any new headaches. No reported seizures. Objective Active Medications: Acetam/Aspirin/Caff/Calcium Glucon (Excedrin Extra Strength 250-250-65 Mg (Nf)) 2 tab PO DAILY PRN PRN Reason: MIGRAINE HEADACHE Acetaminophen (Tylenol Tab*) 650 mg PO Q6H PRN PRN Reason: FEVER/PAIN Last Admin: 11/02/18 14:51 Dose: 650 mg Amantadine HCl (Symmetrel Cap*) 100 mg PO BID [facility] Last Admin: 11/03/18 08:36 Dose: 100 mg Baclofen (Lioresal Tab*) 15 mg PO BID [facility] Bisacodyl (Dulcolax Ec Tab*) 5 mg PO QPM [facility] Last Admin: 11/03/18 16:04 Dose: 5 mg Brexpiprazole (Rexulti) 1 mg PO QAM [facility] Last Admin: 11/03/18 08:40 Dose: Not Given Carbamazepine (Tegretol Tab(*)) 200 mg PO BID [facility] Last Admin: 11/03/18 08:36 Dose: 200 mg Cetirizine HCl (Zyrtec*) 10 mg PO DAILY [facility]; Protocol Last Admin: 11/03/18 08:37 Dose: 10 mg Cyanocobalamin (Vitamin B12 Inj *) 1,000 mcg IM DAILY [facility] Stop: 11/06/18 23:59 Last Admin: 11/03/18 16:02 Dose: 1,000 mcg Diazepam (Valium Tab(*)) 5 mg PO BID [facility] Last Admin: 11/03/18 08:37 Dose: 5 mg Docusate Sodium (Colace Cap*) 100 mg PO QAM [facility] Last Admin: 11/03/18 08:35 Dose: 100 mg Docusate Sodium (Colace Cap*) 200 mg PO QPM [facility] Last Admin: 11/03/18 16:04 Dose: 200 mg Heparin Sodium (Porcine) (Heparin Vial(*)) 5,000 units SUBCUT Q8HR [facility] Last Admin: 11/03/18 15:59 Dose: Not Given Levothyroxine Sodium (Synthroid Tab*) 62.5 mcg PO DAILY@0600 [facility] Last Admin: 11/03/18 05:45 Dose: 62.5 mcg Linaclotide (Linzess (Nf)) 290 mcg PO QAM [facility] Last Admin: 11/03/18 08:40 Dose: Not Given [place] Carbonate ([place] Carbonate Er Tab*) 900 mg PO BEDTIME [facility] Last Admin: 11/02/18 20:26 Dose: 900 mg Magnesium Oxide (Magox 400 Tab*) 400 mg PO QPM [facility] Last Admin: 11/03/18 16:02 Dose: 400 mg Mirabegron (Myrbetriq (Nf)) 50 mg PO QAM [facility] Last Admin: 11/03/18 08:40 Dose: Not Given Morphine Sulfate (Ms Contin(*)) 30 mg PO BID [facility] Last Admin: 11/03/18 08:38 Dose: 30 mg Naproxen (Naprosyn Tab*) 500 mg PO QPM [facility] Last Admin: 11/03/18 16:02 Dose: 500 mg Oxybutynin Chloride (Ditropan Xl Tab*) 10 mg PO QPM [facility] Last Admin: 11/03/18 16:02 Dose: 10 mg Oxycodone HCl (Roxycodone Tab*) 10 mg PO Q12HR PRN PRN Reason: PAIN Last Admin: 11/03/18 08:38 Dose: 10 mg Pantoprazole Sodium (Protonix Tab*) 40 mg PO QAM [facility] Last Admin: 11/03/18 08:35 Dose: 40 mg Prochlorperazine (Compazine Tab*) 5 mg PO Q6H PRN PRN Reason: NAUSEA Last Admin: 11/03/18 07:47 Dose: 5 mg Senna (Senokot Tab*) 1 tab PO QPM [facility] Last Admin: 11/03/18 16:02 Dose: 1 tab Vilazodone HCl (Viibryd (Nf)) 40 mg PO DAILY [facility] Last Admin: 11/03/18 08:35 Dose: 40 mg Vital Signs 11/03/18 11/03/18 11/03/18 07:30 08:37 08:38 Temperature 98.3 F Pulse Rate 79 Respiratory 16 18 18 Rate Blood Pressure 104/63 (mmHg) O2 Sat by Pulse 95 Oximetry 11/03/18 11/03/18 10:57 14:32 Temperature 98.3 F Pulse Rate 76 Respiratory 18 18 Rate Blood Pressure 100/49 (mmHg) O2 Sat by Pulse Oximetry Intake and Output Last 24 Hours 11/01/18 11/02/18 11/03/18 11/04/18 06:59 06:59 06:59 06:59 Intake Total 1000 1140 Output Total 0 Balance 1000 1140 Weight 178 lb 8 oz Intake: IV Fluids 1000 Oral 0 1140 Output: Urine 0 Other: Estimated Void Medium Large # Bowel Movements 0 # Voids 1 1 Oxygen Devices in Use Now: None Neurology Exam: General: Chronic ill appearing female in mild distress due to inability to mobilize secondary to spasticity. HEENT: Normocephelic/atraumatic, sclera anicteric, mucous membranes moist Neck: Supple Extremities: No clubbing, cyanosis, or edema Neurological Findings: Drowsy, but easily aroused. She is alert to self, place, and time. She has mild-moderate psychmotor slowing. Mild spastic dysarthria. Cranial Nerve: PERRL, B/l CYNDY. No facial asymmetry. Motor: 4/5 strength in the upper extremity and 2-3/5 in the lower extremities left weaker than the right. She has moderate-severe spasticity of the lower extremity. Sensation: intact to LT/PP bilaterally upper and lower extremities Deep Tendon Reflex: 3+ symmetric in the upper/lower extremities, extensor plantar response. Bilateral ankle clonus. Finger to nose bilaterally intact. Gait: non-ambulatory. Bed and wheel chair bound. Result Diagrams: 11/01/18 17:03 11/01/18 17:03 Assessment/Plan 1. Secondary progressive MS- There are no new demyelinating changes or enhancing lesions to suggest a MS exacerbation. Follow-up with [facility] and Dr. Lara/ Prabhjot as an outpatient. She is being evaluated to start Gilenya as an outpatient. Given her severe disease process, high dose Solumedrol on a 4-6 week basis can be considered in the future. 2. Bilateral leg weakness and spasticity- this is most likely due to the recent discontinuation of Baclofen. Agree with restarting Baclofen at 15 mg twice daily. 3. Vitamin B12 deficiency- continue IM supplementation then transition to PO as per previous recommendations. The patient may benefit from short term rehabilitation. I will sign off. Please contact me for any questions or concerns.
[2018-11-03] MEDS: Baclofen TAB* 10 MG PO SCH (20:09)
[2018-11-03] MEDS: Lithium Carbonate ER* 450 MG TAB.ER PO SCH (20:13)
[2018-11-04] MEDS: Levothyroxine TAB* 125 MCG TAB PO SCH (05:12)
[2018-11-04] MEDS: Heparin VIAL(*) 5000 UNITS/ML VIAL (FIVE THOUSAND) SUBCUT SCH ×3 (05:13→22:10)
[2018-11-04 05:52] LABS: Hematocrit 36 % (35-47); Mean Corpuscular HGB Conc 34 g/dL (31-36); Mean Corpuscular Hemoglobin 30 pg (27-31); Mean Corpuscular Volume 89 fL (80-97); Mean Platelet Volume 7.8 fL (7.4-10.4); Platelet Count 255 10^3/uL (150-450); Red Blood Count 4.01 10^6 /uL (3.70-4.87); Red Cell Distribution Width 15 % (10.5-15); White Blood Count 4.3 10^3/uL (3.5-10.8)
[2018-11-04 06:02] LABS: BUN/Creatinine Ratio 18.9 (8-20); EGFR African American 148.4 (>60); EGFR Non-African American 122.6 (>60); Potassium 2.8 mmol/L (3.5-5.0)
[2018-11-04 06:06] LABS: Calcium 6.4 mg/dL (8.6-10.3)
[2018-11-04] MEDS ORDERED: Calcium Gluconate INJ* 2 GM in NS 0.9% 100 ML* 100 ML IV ONE (06:11)
[2018-11-04] MEDS ORDERED: Potassium Chlor TAB* 20 MEQ TAB.ER PO ONE (06:11)
--- NOTE | 2018-11-04 06:12 | PN ---
Progress Note - Progress Note Date of Service: 11/04/18 Note: Called for low calcium and potassium. 60 meq KCl and 2 g calcium gluconate ordered.
[2018-11-04 08:59] LABS: Albumin 2.5 g/dL (3.2-5.2)
[2018-11-04] MEDS ORDERED: Potassium Chlor TAB* 20 MEQ TAB.ER PO SCH (09:00)
[2018-11-04] MEDS: Prochlorperazine TAB* 5 MG PO PRN (09:08)
--- NOTE | 2018-11-04 09:35 | PN ---
Subjective Date of Service: 11/04/18 Interval History: VS: hypo-normotensive Lab: Hypokalemia, hypocalcemia Pt is resting in bed with HOB elevated. She states that she is not feeling well today. She continues to have pain, weakness, spasms. Have not been able to obtain records regarding discontinuation of baclofen, but believe that this was due to possible urinary incontinence. Pt states that incontinence has not improved since discontinuation and has opted to resume medication. Pt states she has not been eating well. She has decreased appetite and notes v x1 this morning, but this was noted to have occurred approximately 1 hour after 60mEq PO potassium given. She has not had BM since Thursday. Objective Active Medications: Acetam/Aspirin/Caff/Calcium Glucon (Excedrin Extra Strength 250-250-65 Mg (Nf)) 2 tab PO DAILY PRN Acetaminophen (Tylenol Tab*) 650 mg PO Q6H PRN Amantadine HCl (Symmetrel Cap*) 100 mg PO BID BRENNAN Baclofen (Lioresal Tab*) 15 mg PO BID BRENNAN Bisacodyl (Dulcolax Ec Tab*) 5 mg PO QPM BRENNAN Brexpiprazole (Rexulti) 1 mg PO QAM BRENNAN Carbamazepine (Tegretol Tab(*)) 200 mg PO BID BRENNAN Cetirizine HCl (Zyrtec*) 10 mg PO DAILY BRENNAN; Protocol Cyanocobalamin (Vitamin B12 Inj *) 1,000 mcg IM DAILY BRENNAN Diazepam (Valium Tab(*)) 5 mg PO BID BRENNAN Docusate Sodium (Colace Cap*) 100 mg PO QAM BRENNAN Docusate Sodium (Colace Cap*) 200 mg PO QPM BRENNAN Heparin Sodium (Porcine) (Heparin Vial(*)) 5,000 units SUBCUT Q8HR BRENNAN Heparin Sodium (Porcine) (Heparin Flush Port (Ivad)) 5 ml FLUSH DAILY BRENNAN; Protocol Potassium Chloride (Potassium Chloride 20 Meq/100 Ml Ivpremix*) 20 meq in 100 mls @ 50 mls/hr IV Q2H BRENNAN Levothyroxine Sodium (Synthroid Tab*) 62.5 mcg PO DAILY@0600 BRENNAN Linaclotide (Linzess (Nf)) 290 mcg PO QAM BRENNAN [place]ham Carbonate ([place] Carbonate Er Tab*) 900 mg PO BEDTIME BRENNAN Magnesium Oxide (Magox 400 Tab*) 400 mg PO QPM BRENNAN Mirabegron (Myrbetriq (Nf)) 50 mg PO QAM BRENNAN Morphine Sulfate (Ms Contin(*)) 30 mg PO BID BRENNAN Naproxen (Naprosyn Tab*) 500 mg PO QPM BRENNAN Oxybutynin Chloride (Ditropan Xl Tab*) 10 mg PO QPM BRENNAN Oxycodone HCl (Roxycodone Tab*) 10 mg PO Q12HR PRN Pantoprazole Sodium (Protonix Tab*) 40 mg PO QAM BRENNAN Potassium Chloride (Klor Con Er Tab*) 20 meq PO Q2H BRENNAN Prochlorperazine (Compazine Tab*) 5 mg PO Q6H PRN Senna (Senokot Tab*) 1 tab PO QPM BRENNAN Vilazodone HCl (Viibryd (Nf)) 40 mg PO DAILY BRENNAN Vital Signs: Temp Pulse Resp BP Pulse Ox 97.1 F 72 16 94/47 94 11/04/18 02:31 11/04/18 02:31 11/04/18 02:31 11/04/18 02:31 11/04/18 02:31 Oxygen Devices in Use Now: None Appearance: Pt is laying in bed. She appears uncomfortable, but is in no acute distress. Eyes: No Scleral Icterus, PERRLA, - - Horizontal nystagmus Ears/Nose/Mouth/Throat: NL Teeth, Lips, Gums, Clear Oropharnyx, Mucous Membranes Moist, - - Negative Chvostek's sign Neck: NL Appearance and Movements; NL JVP, Trachea Midline Respiratory: Symmetrical Chest Expansion and Respiratory Effort, Clear to Auscultation Cardiovascular: NL Sounds; No Murmurs; No JVD, RRR, No Edema Abdominal: No Hepatosplenomegaly, - - BS in all quadrants. No distention. TTP RLQ, LLQ; nontender elsewhere Extremities: No Edema, No Clubbing, Cyanosis Neurological: Alert and Oriented x 3, - - Strength UE 3/5, LE 2/5. Result Diagrams: 11/04/18 05:30 11/04/18 05:30 Assess/Plan/Problems-Billing 1. Secondary progressive MS- There are no new demyelinating changes or enhancing lesions to suggest a MS exacerbation. Follow-up with [facility] and Dr. Lara/ Prabhjot as an outpatient. She is being evaluated to start Gilenya as an outpatient. Given her severe disease process, high dose Solumedrol on a 4-6 week basis can be considered in the future. 2. Bilateral leg weakness and spasticity- this is most likely due to the recent discontinuation of Baclofen. Agree with restarting Baclofen at 15 mg twice daily. 3. Vitamin B12 deficiency- continue IM supplementation then transition to PO as per previous recommendations. The patient may benefit from short term rehabilitation. I will sign off. Please contact me for any questions or concerns. - Patient Problems (1) Weakness Comment: -Neurology consulted; thank you for the recommendations -Methylphenidate and Baclofen d/c'd last week -DDx: progression of MS, discontinued medications (baclofen), low B12, hypothyroidism -Appears Urology d/c Baclofen; records requested -Restart Baclofen at previous dose of 15mg BID and monitor for improvement -PT/OT ordered (2) Electrolyte abnormality Comment: -Hypokalemia, 2.8: repleted with 60 PO this a.m.; will order 40 IV -Hypocalcemia, 6.4: corrected Ca 7.8: repleted with 2g ca gluc. -Albumin 2.5: ? due to decrease in PO intake; discussed increasing protein; will order Ensure with meals -EKG NSR, QRS WNL (3) Elevated TSH Comment: -TSH elevated; low T4; awaiting total T3 -Synthroid increased from 50 to 62.5 -Recommend recheck TSH in 4-6 weeks outpatient (4) Vitamin B12 deficiency Comment: -B12 1000 IM x5 days -B12 1000 PO daily (5) Multiple sclerosis Comment: - Patient with progressively worsening MS; Baclofen discontinued by urology - Restart Baclofen and assess for improvement - MRI brain no acute changes; likely not exacerbation - Continue home medications; follow up with [facility] at discharge to discuss Juan (6) DVT prophylaxis Comment: -Heparin SQ (7) Full code status Status and Disposition: Inpatient. Awaiting [facility] placement.
[2018-11-04] MEDS: Cyanocobalamin INJ * 1,000 MCG/ML VIAL 1 ML VIAL IM SCH (10:07)
[2018-11-04] MEDS: KCL 20 MEQ/100 ML IVPREMIX* 20 MEQ/100 ML BAG IV SCH ×4 (10:08→12:16)
[2018-11-04] MEDS: Amantadine CAP* 100 MG PO SCH ×2 (10:12→20:08)
[2018-11-04] MEDS: Docusate CAP* 100 MG PO SCH ×2 (10:13→17:32)
[2018-11-04] MEDS: CMC:Vilazodone (NF) 40 MG TAB PO SCH (10:13)
[2018-11-04] MEDS: Cetirizine* 10 MG TAB PO SCH (10:13)
[2018-11-04] MEDS: carBAMazepine TAB(*) 200 MG PO SCH ×2 (10:13→20:07)
[2018-11-04] MEDS: Baclofen TAB* 10 MG PO SCH ×2 (10:13→20:07)
[2018-11-04] MEDS: Morphine TAB Extended Release (*) 30 MG TAB.ER PO SCH ×2 (10:14→20:08)
[2018-11-04] MEDS: Diazepam TAB(*) 5 MG PO SCH ×2 (10:14→20:07)
[2018-11-04] MEDS: Pantoprazole TAB * 40 MG TAB PO SCH (10:14)
[2018-11-04] MEDS: BREXPIPRAZOLE 1 MG PO SCH (10:29)
[2018-11-04] MEDS: Mirabegron (NF) 50 MG TAB PO SCH (10:29)
[2018-11-04] MEDS: Magnesium Oxide TAB* 400 MG PO SCH (17:32)
[2018-11-04] MEDS: Bisacodyl EC TAB* 5 MG PO SCH (17:32)
[2018-11-04] MEDS: Oxybutynin XL TAB* 5 MG PO SCH (17:32)
[2018-11-04] MEDS: Naproxen TAB* 250 MG PO SCH (17:32)
[2018-11-04] MEDS: Senna TAB PO SCH (17:32)
[2018-11-04] MEDS: oxyCODONE TAB* 5 MG TAB PO PRN (20:08)
[2018-11-04] MEDS: Lithium Carbonate ER* 450 MG TAB.ER PO SCH (20:09)
[2018-11-05] MEDS: Levothyroxine TAB* 125 MCG TAB PO SCH (06:15)
[2018-11-05] MEDS: Heparin VIAL(*) 5000 UNITS/ML VIAL (FIVE THOUSAND) SUBCUT SCH (06:17)
[2018-11-05 07:06] LABS: Albumin 3.6 g/dL (3.2-5.2); Albumin/Globulin Ratio 1.5 (1-3); BUN/Creatinine Ratio 13.7 (8-20); Calcium 9.5 mg/dL (8.6-10.3); EGFR African American 102.5 (>60); EGFR Non-African American 84.7 (>60); Globulin 2.4 g/dL (2-4); Potassium 3.8 mmol/L (3.5-5.0); Total Bilirubin 0.3 mg/dL (0.2-1.0)
[2018-11-05] MEDS: Docusate CAP* 100 MG PO SCH (08:11)
[2018-11-05] MEDS: Morphine TAB Extended Release (*) 30 MG TAB.ER PO SCH (08:12)
[2018-11-05] MEDS: Pantoprazole TAB * 40 MG TAB PO SCH (08:13)
[2018-11-05] MEDS: carBAMazepine TAB(*) 200 MG PO SCH (08:13)
[2018-11-05] MEDS: Cetirizine* 10 MG TAB PO SCH (08:13)
[2018-11-05] MEDS: Amantadine CAP* 100 MG PO SCH (08:13)
[2018-11-05] MEDS: Diazepam TAB(*) 5 MG PO SCH (08:15)
[2018-11-05] MEDS: Cyanocobalamin INJ * 1,000 MCG/ML VIAL 1 ML VIAL IM SCH (08:15)
[2018-11-05] MEDS: Baclofen TAB* 10 MG PO SCH (08:19)
[2018-11-05] MEDS: CMC:Vilazodone (NF) 40 MG TAB PO SCH (08:34)
[2018-11-05 11:40] VITALS: BP 103/41
[2018-11-05] MEDS: BREXPIPRAZOLE 1 MG PO SCH (12:26)
[2018-11-05] MEDS: Mirabegron (NF) 50 MG TAB PO SCH (12:26)
--- NOTE | 2018-11-05 13:24 | DS ---
CC: Dr. Chiki Chandler; Dr. Robert Mcgraw; Dr. Tim Lara; Dr. Altamirano; Dr. Lubin at [facility]; Dr. Jones; Dr. Herrmann* DATE OF ADMISSION: 11/01/2018. DATE OF DISCHARGE: 11/05/2018. PRIMARY CARE PHYSICIANS: Dr. Chiki Chandler, Dr. Robert Mcgraw. NEUROLOGISTS: Dr. Tim Lara, Dr. Altamirano, Dr. Lubin at [facility]. PSYCHIATRIST: Dr. Jones. UROLOGIST: Dr. Herrmann. ATTENDING PHYSICIAN: Dr. Mariaa Salguero* (dictated by LALI Llamas). PRIMARY DIAGNOSES: 1. Weakness. 2. B12 deficiency. 3. Elevated TSH. 4. Hypocalcemia, hypokalemia, low albumin. SECONDARY DIAGNOSES: 1. Multiple sclerosis, progressive and relapsing. 2. Asthma. 3. Optic neuritis. 4. Migraines. 5. Myositis of hip and jaw 6. Obstructive sleep apnea. 7. Urinary incontinence. 8. Seizure disorder June 2018 in the setting of starting Empira which has since been stopped. 9. Chronic low back pain. 10. Provoked left femoral DVT. 11. Depression. 12. History of suspected hemorrhagic cystitis when on Cytoxan, last dose April 2016. STUDIES WHILE IN THE HOSPITAL: 1. Brain CT, 11/01/2018: Impression: No acute intracranial pathology. Chronic small vessel ischemic change. 2. Chest x-ray, 11/01/2018: Impression: No active cardiopulmonary disease. 3. CTA of chest/thorax, 11/01/2018: Impression: No pulmonary emboli. No additional findings to correlate with patient's symptomatology. 4. MRI of the brain, 11/01/2018: Impression: Unchanged MS associated demyelinating plaques. No changes of acute demyelination. 5. Cervical spine MRI, 11/01/2018: Impression: Unchanged MS associated demyelinating plaques throughout the cervical and upper thoracic cord. No changes of active demyelination. Mild multilevel cervical spondylopathy. 6. Thoracic spine MRI, 11/01/2018: Impression: Stable findings of known multiple sclerosis associated demyelinating plaques throughout the thoracic spinal cord. No changes of active demyelination. DISCHARGE MEDICATIONS: Home medications: 1. Omeprazole 20 mg p.o. q.a.m. 2. Viibryd 40 mg p.o. daily. 3. Amantadine 100 mg p.o. b.i.d. 4. Potassium 10 mEq p.o. q.a.m. 5. Rexulti 1 mg p.o. q.a.m. 6. Linzess 290 mcg p.o. q.a.m. 7. Tegretol 200 mg p.o. b.i.d. 8. Compazine 5 mg p.o. q.6 hours prn. 9. Myrbetriq 50 mg p.o. q.a.m. 10. [place] Carbonate ER 900 mg p.o. at bedtime. 11. Docusate 100 mg p.o. q.a.m. 12. Docusate 200 mg p.o. q.p.m. 13. Acetaminophen 500 to 1,000 mg p.o. q.6 hours prn. 14. Morphine ER 30 mg p.o. b.i.d. 15. Turmeric 400 mg p.o. daily. 16. Excedrin Migraine two tabs p.o. daily prn. 17. Baclofen 20 mg p.o. b.i.d. 18. Oxybutynin 10 mg p.o. q.p.m. 19. Diazepam 5 mg p.o. b.i.d. 20. Fexofenadine 180 mg p.o. daily. 21. Magnesium Oxide 400 mg p.o. q.p.m. 22. Bisacodyl EC 5 mg p.o. q.p.m. 23. Oxycodone 10 mg p.o. q.12 hours prn. 24. Naproxen 500 mg p.o. q.p.m. 25. Sennosides 8.6 mg p.o. q.p.m. New home medications: 1. Cyanocobalamin 1,000 mcg injection IM daily times 2 days starting tomorrow. 2. Cyanocobalamin 1,000 mcg p.o. daily starting Thursday. Changed home medications: Levothyroxine increased to 62.5 mcg p.o. daily. HISTORY OF PRESENT ILLNESS/HOSPITAL COURSE: Ms. Cisneros is a 48-year-old female with a past medical history of multiple sclerosis, progressive, relapsing, seizure disorder, myositis of the hip and jaw, hypothyroidism, and chronic low back pain who presented to the ER on November 01 with complaints of worsening of weakness. She complains of generalized weakness that worsened starting the night prior to admission. She reports being unable to transfer between recliner and wheelchair which she is typically able to do. In the ER, she was found to have an elevated D- dimer. CTA of the chest showed no evidence of pulmonary embolism. CT of the head, as well as MRI of the head, neck, and thoracic spine revealed no new lesions. Dr. Gonzalez was consulted. She was also noted to have an elevated TSH and a low T4. She is noted to have a recent decrease in her Synthroid dose from 75 to 50 mcg daily, which occurred in June. The patient was admitted by the Hospitalist team with consult to Neurology. Again, MRI's revealed stable MS lesions. The patient's outpatient neurologist was consulted and noted that she has been taken off of her Baclofen recently, approximately one to two weeks ago. She is also noted to suffer from some polypharmacy noting to be on benzodiazepines, opiates, Baclofen, [place], and antidepressants. Blood work also revealed that the patient had low B12. Dr. Gonzalez recommended five days of IM B12 followed by oral B12 thereafter. The patient was noted to have hypokalemia, hypocalcemia, and low albumin which were all corrected and the following day labs were within normal limits. Her Baclofen was added back on to her medication list with recommendations to follow -up with Neurology regarding future use. On the day of discharge, the patient is stable to be transferred to [facility]. She states that she feels "way better" than when she came in. She does continue to have numbness and occasional muscle twitching in bilateral upper and lower extremities. She continues to experience weakness in those areas, although she reports that this has improved along with her pain. At the time of discharge, the patient denies chest pain, shortness of breath, abdominal pain , nausea, vomiting, and diarrhea. Ms. Cisneros is stable for discharge. PHYSICAL EXAMINATION: General: Ms. Cisneros is a well-developed, well-nourished, overweight, middle-aged, white woman who is lying in bed. She appears to be in no acute distress. She appears comfortable. Vital Signs: Temperature 97.2 temporal, heart rate 76, respiratory rate 16, oxygen saturation 98 percent on room air, blood pressure 103/41. HEENT: Visual bliss are grossly intact. Pupils are equally round and reactive to light. Extraocular movements are intact. Occasional horizontal nystagmus is noted. There is no scleral icterus. Hearing is grossly intact. Oral mucus membranes are moist, there are no lesions. The pharynx is clear. Cardiovascular: Regular rate and rhythm with S1, S2 present. There are no murmurs, rubs, clicks, or gallops. Respiratory: Symmetrical chest expansion without use of accessory muscles. Lungs: Clear to auscultation. No wheeze, rhonchi or rales. Abdomen: Flat, bowel sounds noted in all quadrants. The abdomen is soft and nontender to palpation. There is no hepatosplenomegaly. Extremities: Skin is warm and smooth bilaterally. There is no clubbing, cyanosis or edema. Radial and pedal pulses are palpable. Neuro: The patient is awake. She is alert and oriented times three. She is able to move all of her extremities, although she has decreased motor strength in the bilateral lower extremities that is equally 2/5 bilaterally. Upper extremities are 4/5 bilaterally. She uses a wheelchair at baseline. DISCHARGE PLAN: Ms. Cisneros will be discharged to [facility] Bed. Medications: Continue Baclofen, discuss continuation with Neurology; B12 1,000 mcg injection times two days, then switch to B12 1,000 mcg orally daily. ACTIVITY: As tolerated. Continue PT and OT at [place]. DIET: Regular diet. Increase protein intake, consider Ensure with meals. EDUCATION: 1. Follow-up with primary care provider in four to seven days. 2. Follow-up with Neurology at [facility] and [facility] as needed. 3. Return to the ER or the nearest hospital if you experience any shortness of breath, chest discomfort, high fever, chills, night sweats, lightheadedness, dizziness, loss of consciousness, or any other worrisome signs or symptoms. This is a summarized report of a complex medical history and hospital stay. For further details, please see the entire medical record. TIME SPENT: Approximately 35 minutes were spent on this discharge, greater than half of that time was spent [id number] with the patient discussing discharge plans and instructions. LALI JO [id number]/[facility] #: [id number] SHIRA
[2018-11-06] MEDS ORDERED: Lorazepam PYXIS KEY ONE (16:52)
== END 2018-11-05 16:00 | disposition swing bed (61) | DRG 948 ==
LOC: ED 15:24 → MED 21:18 → OBSVTOIN 11-03 14:00
PROVIDERS: ADMIT Internal Medicine; ATTEND Hospitalist
DX: R53.1 Weakness (principal); H46.9 Unspecified optic neuritis; E53.8 Deficiency of other specified B group vitamins; E87.6 Hypokalemia; E83.51 Hypocalcemia; E88.09 Other disorders of plasma-protein metabolism, not elsewhere classified; G35 Multiple sclerosis; J45.909 Unspecified asthma, uncomplicated; G43.909 Migraine, unspecified, not intractable, without status migrainosus; M60.9 Myositis, unspecified; G47.33 Obstructive sleep apnea (adult) (pediatric); R32 Unspecified urinary incontinence; G40.909 Epilepsy, unspecified, not intractable, without status epilepticus; G89.29 Other chronic pain; M54.5 Low back pain; F32.9 Major depressive disorder, single episode, unspecified; M48.9 Spondylopathy, unspecified; R06.02 Shortness of breath; E05.90 Thyrotoxicosis, unspecified without thyrotoxic crisis or storm; R21 Rash and other nonspecific skin eruption; R35.0 Frequency of micturition; G89.4 Chronic pain syndrome; R79.1 Abnormal coagulation profile; E66.3 Overweight; K21.9 Gastro-esophageal reflux disease without esophagitis; M17.0 Bilateral primary osteoarthritis of knee; M19.041 Primary osteoarthritis, right hand; F41.9 Anxiety disorder, unspecified; Z91.5 Personal history of self-harm; Z92.21 Personal history of antineoplastic chemotherapy; Z82.49 Family history of ischemic heart disease and other diseases of the circulatory system; Z83.3 Family history of diabetes mellitus; Z86.718 Personal history of other venous thrombosis and embolism; Z68.29 Body mass index [BMI] 29.0-29.9, adult; Z99.3 Dependence on wheelchair; Z88.6 Allergy status to analgesic agent; Z91.030 Bee allergy status; Z88.0 Allergy status to penicillin; Z88.2 Allergy status to sulfonamides; Z91.018 Allergy to other foods; Z91.048 Other nonmedicinal substance allergy status; Z86.711 Personal history of pulmonary embolism; Z87.11 Personal history of peptic ulcer disease; Z79.890 Hormone replacement therapy; Z82.69 Family history of other diseases of the musculoskeletal system and connective tissue; Z87.891 Personal history of nicotine dependence; Z83.49 Family history of other endocrine, nutritional and metabolic diseases
CPT/HCPCS: 36415; 70450; 70553; 71045; 71275; 72156; 72157; 80048; 80053; 80156; 80178; 81003; 82040; 82607; 83605; 83880; 84439; 84443; 84479; 84484; 85025; 85027; 85379; 85610; 86140; 93005; 99285; A9270-GY; A9579; G0378; G8978-GP-CM; G8979-GP-CJ; G8987-GO-CM; G8988-GO-CK; J0610; J1642; J1644; J3420; J3480; Q9967

== ENCOUNTER 2018-12-25 14:44 | Emergency (ER) | payer MEDICARE, MEDICAID ==
--- NOTE | 2018-12-25 15:20 | ED ---
GI/ HPI - HPI Summary HPI Summary: This pt is a 48 y/o female presenting to [facility] via EMS for pain and pressure with urination since a couple of days ago. Pt states for the last couple of days she has also been feeling fatigue and dizzy. She does not know if she has had a fever these past few days as she did not take her temperature. No fever today in the ED. While asking her questions in the room pt states she has a hard time focusing. Per direct care supervisor, pt's father had reported pt was slurring her speech a little more and had "remembering issues" since yesterday. PMHx includes UTI and MS. - History of Current Complaint Chief Complaint: EDUrogenitalProblems Time Seen by Provider: 12/25/18 15:12 Stated Complaint: POSS UTI PER EMS Hx Obtained From: Patient Onset/Duration: Started Days Ago, Still Present Timing: Lasting Days Current Severity: Moderate Pain Intensity: 7 Location of Pain: Other - chronic low back pain Associated Signs and Symptoms: Positive: Dizziness, Dysuria, Other: - POSITIVE: fatigue, slurring speech. Negative: Fever, Chills Aggravating Factor(s): Nothing Alleviating Factor(s): Nothing - Additional Pertinent History Primary Care Physician: [id number] - Allergy/Home Medications Allergies/Adverse Reactions: Allergies Allergy/AdvReac Type Severity Reaction Status Date / Time bee venom protein (honey bee) Allergy Severe See Comment Verified 11/01/18 15:44 onion Allergy Severe See Comment Verified 11/01/18 15:44 Sulfa (Sulfonamide Allergy Severe Unknown Verified 11/01/18 15:44 Antibiotics) Reaction Details aspirin Allergy Intermediate Nausea Verified 11/01/18 15:44 Penicillins Allergy Intermediate See Comment Verified 11/01/18 15:44 Taliaferro And Derivatives Allergy Unknown See Comment Verified 11/01/18 15:44 PMH/Surg Hx/FS Hx/Imm Hx Endocrine/Hematology History: Reports: Hx Thyroid Disease Denies: Hx Diabetes, Hx Anemia, Hx Unexplained Bleeding, Other Endocrine/ Hematological Disorders Cardiovascular History: Denies: Hx Aneurysm, Hx Angina, Hx Angioplasty, Hx Auto Implanted Cardiovert Defib, Hx Cardiac Arrest, Hx Cardiomegaly, Hx Congenital Heart Disease, Hx Congestive Heart Failure, Hx Coronary Artery Disease, Hx Deep Vein Thrombosis, Hx Embolism, Hx Hypercholesterolemia, Hx Hypotension, Hx Hypertension, Hx Pacemaker/ICD, Hx Peripheral Vascular Disease, Hx Rheumatic Fever, Hx Syncope, Hx Valvular Heart Disease, Other Cardiovascular Problems/Disorders Respiratory History: Reports: Hx Asthma - as a child, Hx Pulmonary Embolism, Hx Sleep Apnea Denies: Hx Chronic Bronchitis, Hx Chronic Obstructive Pulmonary Disease (COPD ), Hx Cystic Fibrosis, Hx Lung Cancer, Hx Pleural Effusion, Hx Pneumonia, Hx Pulmonary Edema, Hx Seasonal Allergies, Other Respiratory Problems/Disorders GI History: Reports: Hx Gastroesophageal Reflux Disease, Hx Ulcer Denies: Hx Gastrointestinal Bleed, Hx Hiatal Hernia History: Reports: Other Problems/Disorders - urinary incontinence Denies: Hx Dialysis, Hx Kidney Stones, Hx Renal Disease Musculoskeletal History: Reports: Hx Arthritis - knees, right hand, Hx Back Problems, Other Musculoskeletal History - MS Denies: Hx Bursitis, Hx Congenital Bone Abnormalities, Hx Fibromyalgia, Hx Gout, Hx Orthopedic Injury, Hx Osteoporosis, Hx Scoliosis, Hx Tendonitis Sensory History: Reports: Hx Contacts or Glasses, Other Sensory Impairments - Numbness in feet Denies: Hx Cataracts, Hx Eye Injury, Hx Eye Prosthesis, Hx Glaucoma, Hx Legally Blind, Hx Macular Degeneration, Hx Vision Problem, Hx Deafness, Hx Hearing Aid, Hx Hearing Problem Opthamlomology History: Reports: Hx Contacts or Glasses, Other Sensory Impairments - Numbness in feet Denies: Hx Cataracts, Hx Eye Injury, Hx Eye Prosthesis, Hx Glaucoma, Hx Legally Blind, Hx Macular Degeneration, Hx Vision Problem Neurological History: Reports: Hx Headaches, Hx Migraine, Hx Nerve Disease, Hx Seizures, Other Neuro Impairments/Disorders - MS Denies: Hx Dementia, Hx Developmental Delay, Hx Spinal Cord Injury, Hx Transient Ischemic Attacks (TIA) Psychiatric History: Reports: Hx Anxiety, Hx Depression, Hx Suicide Attempt, Hx Substance Abuse Denies: Hx Attention Deficit Hyperactivity Disorder, Hx Eating Disorder, Hx Panic Disorder, Hx Post Traumatic Stress Disorder, Hx Inpatient Treatment, Hx Community Mental Health Tx, Hx Schizophrenia, Hx Bipolar Disorder, Hx of Violent Episodes Against Others, Other Psychiatric Issues/Disorders - Cancer History Hx Chemotherapy: Yes - For MS Hx Radiation Therapy: No - Surgical History Surgery Procedure, Year, and Place: BREAST REDUCTION 2006, oral surgeries Hx Anesthesia Reactions: No - Immunization History Date of Tetanus Vaccine: Unknown Date of Influenza Vaccine: Unk re: Fall 2014 Infectious Disease History: No Infectious Disease History: Denies: Hx Clostridium Difficile, Hx Hepatitis, Hx Human Immunodeficiency Virus (HIV), Hx of Known/Suspected MRSA, Hx Shingles, Hx Tuberculosis, Hx Known/ Suspected VRE, Hx Known/Suspected VRSA, History Other Infectious Disease, Traveled Outside the [place] in Last 30 Days - Family History Known Family History: Positive: Cardiac Disease - Father, Diabetes Family History: FHx of spina bifida - Social History Alcohol Use: None 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 Negative: Fever Cardiovascular: Negative Respiratory: Negative Positive: dysuria Neurological: Other - POSITIVE: dizziness, slurring speech All Other Systems Reviewed And Are Negative: Yes Physical Exam - Summary Physical Exam Summary: Appearance: The patient is well-nourished in no acute distress and in no acute pain. Skin: The skin is warm and dry and skin color reflects adequate perfusion. HEENT: The head is normocephalic and atraumatic. The pupils are equal and reactive. The conjunctivae are clear and without drainage. Nares are patent and without drainage. Mouth reveals moist mucous membranes and the throat is without erythema and exudate. The external ears are intact. The ear canals are patent and without drainage. The tympanic membranes are intact. Neck: the neck is supple with full range of motion and non-tender. There are no carotid bruits. There is no neck vein distension. Respiratory: Chest is non-tender. Lungs are clear to auscultation and breath sounds are symmetrical and equal. Cardiovascular: Heart is regular rate and rhythm. There is no murmur or rub auscultated. Abdomen: The abdomen is soft and non-tender. There are normal bowel sounds heard in all four quadrants and there is no organomegaly palpated. Musculoskeletal: There is no back tenderness noted. Neurological: Patient is alert and oriented to person, place and time. Psychiatric: The patient has an appropriate affect and does not exhibit any anxiety or depression. Triage Information Reviewed: Yes Vital Signs On Initial Exam: Initial Vitals Temp Pulse Resp BP Pulse Ox 97.1 F 75 16 120/77 97 12/25/18 14:52 12/25/18 14:52 12/25/18 14:52 12/25/18 14:52 12/25/18 14:52 Vital Signs Reviewed: Yes Diagnostics - Vital Signs Vital Signs Temp Pulse Resp BP Pulse Ox 12/25/18 14:52 97.1 F 75 16 120/77 97 - Laboratory Result Diagrams: 12/25/18 15:42 12/25/18 15:42 Lab Statement: Any lab studies that have been ordered have been reviewed, and results considered in the medical decision making process. GIGU Course/Dx - Course Course Of Treatment: Ms. Cisneros presented complaining of feeling weak the last couple days with some dysuria and frequency. She was nontoxic in appearance with stable vitals. Her labs are generally unremarkable except her urinalysis showed a likely UTI. I will treat her and get her close follow-up. - Diagnoses Provider Diagnoses: UTI (urinary tract infection) Discharge - Sign-Out/Discharge Documenting (check all that apply): Patient Departure - Discharge home Patient Received Moderate/Deep Sedation with Procedure: No - Discharge Plan Condition: Stable Disposition: HOME Prescriptions: Nitrofurantoin Monohyd/M-Cryst [Macrobid 100 mg Capsule] 100 mg PO BID #20 cap Patient Education Materials: Urinary Tract Infection in Women (ED) Referrals: Chiki Chandler MD [Primary Care Provider] - Additional Instructions: Follow up with your primary care provider in 2-3 days. RETURN TO THE ED FOR ANY WORSENING OR NEW SYMPTOMS. - Billing Disposition and Condition Condition: STABLE Disposition: Home - Attestation Statements Document Initiated by Polly: Yes Documenting Scribe: Mariaa Watt Provider For Whom Scribe is Documenting (Include Credential): Hayes Wei MD Scribe Attestation: IMariaa, scribed for Hayes Wei MD on 12/26/18 at 1112. Scribe Documentation Reviewed: Yes Provider Attestation: The documentation as recorded by the Mariaa mark accurately reflects the service I personally performed and the decisions made by me, Hayes Wei MD Status of Scribe Document: Viewed
[2018-12-25 15:50] LABS: ABS Monocytes 0.6 10^3/ul (0-0.8); ABS Neutrophils 3.9 10^3/ul (1.5-7.7); Hematocrit 40 % (35-47); Hemoglobin 13.4 g/dL (12.0-16.0); Lymphocyte % 18.6 %; Mean Corpuscular HGB Conc 33 g/dL (31-36); Mean Corpuscular Hemoglobin 30 pg (27-31); Mean Corpuscular Volume 91 fL (80-97); Mean Platelet Volume 7.9 fL (7.4-10.4); Platelet Count 278 10^3/uL (150-450); Red Blood Count 4.44 10^6 /uL (3.70-4.87); Red Cell Distribution Width 15 % (10-15); White Blood Count 5.5 10^3/uL (3.5-10.8)
[2018-12-25 16:19] LABS: ALT 23 U/L (7-52); AST 21 U/L (13-39); Albumin 4.2 g/dL (3.2-5.2); Albumin/Globulin Ratio 1.8 (1-3); Alkaline Phosphatase 151 U/L (34-104); Anion Gap 7 mmol/L (2-11); BUN/Creatinine Ratio 9.2 (8-20); Blood Urea Nitrogen 6 mg/dL (6-24); C Reactive Protein 1.59 mg/L (<8.01); CO2 Carbon Dioxide 28 mmol/L (22-32); Calcium 9.9 mg/dL (8.6-10.3); Chloride 106 mmol/L (101-111); EGFR African American 117.2 (>60); EGFR Non-African American 96.9 (>60); Globulin 2.3 g/dL (2-4); Glucose 97 mg/dL (70-100); Potassium 3.9 mmol/L (3.5-5.0); Sodium 141 mmol/L (135-145); Total Protein 6.5 g/dL (6.4-8.9)
[2018-12-25 16:38] LABS: Urine Appearance Cloudy; Urine Bacteria Absent (Absent); Urine Bilirubin Negative (Negative); Urine Blood Negative (Negative); Urine Color Yellow; Urine Glucose Negative (Negative); Urine Ketones Negative (Negative); Urine Nitrite Negative (Negative); Urine Protein Negative (Negative); Urine Red Blood Cell 2+(6-10/hpf) (Absent); Urine Specific Gravity 1.008 (1.010-1.030); Urine Squamous Epithelial Cell Present (Absent); Urine Urobilinogen Negative (Negative); Urine White Blood Cell 3+(>20/hpf) (Absent)
[2018-12-25 16:54] LABS: TSH (Thyroid Stimulating Horm) 1.89 mcIU/mL (0.34-5.60)
[2018-12-25] MEDS ORDERED: Nitrofurantoin Macrocrystals* 100 MG CAP PO ONE (18:13)
[2018-12-25 19:05] VITALS: BP 144/80
--- NOTE | 2018-12-27 09:29 | PN ---
Progress Note - Progress Note Date of Service: 12/25/18 Note: Called patient to make aware of results, she states she is still feeling UTI symptoms despite the Macrobid Urine culture final grew aerococcus urinae, and isolates R2 fastidious for routine susceptibility This states susceptible to penicillin, amoxicillin, cefepime, rifampin, quinolones and erythromycin Patient will be switched to Keflex 500 mg 3 times a day 5 days Patient is residing at [facility] and rehabilitation Called RAMO Gonzalez who is taking care of patient She states she will give message to provide her to switch the antibiotic
== END 2018-12-25 18:12 | disposition home or self-care (01) ==
LOC: ED 14:44
DX: N39.0 Urinary tract infection, site not specified (principal); Z88.0 Allergy status to penicillin; Z88.2 Allergy status to sulfonamides; Z88.8 Allergy status to other drugs, medicaments and biological substances; Z87.891 Personal history of nicotine dependence
CPT/HCPCS: 36415; 80053; 81003; 81015; 83605; 83690; 84439; 84443; 84481; 85025; 86140; 87077; 87086; 99283; A9270-GY

== ENCOUNTER 2019-04-04 16:21 | Emergency (ER) | payer MEDICARE, MEDICAID ==
[2019-04-04] MEDS ORDERED: NS 0.9% 1000 ML** 1,000 ML IV ONE (17:13)
--- NOTE | 2019-04-04 17:18 | ED ---
Abdominal Pain/Female - HPI Summary HPI Summary: Pt is a 48 y/o F presenting to the ED for a chief complaint of lower abdominal pain. Pt reports constant lower abdominal pain that she describes as cramping before and during bowel movements. On triage, pt rates the pain as 8/10 in severity. Pt states her bowel movements are watery. Pts last bowel movement was all liquid and pt has had 5-6 bowel movements on 04/04/19. Pt also admits nausea and diarrhea that began at midnight on 04/02/19. Pt takes nausea medication every 2 hours which she started taking 2 hours ago with some relief. Pt denies abdominal cramps in the last hour, vomiting, or fever. Pt was recently at [facility] for an MS relapse. Pt is currently taking immune- suppressants for which she sees Dr. Lara. Pt had a seizure in June 2018 and was placed in the ICU at [facility] [place]. Allergies noted. - History of Current Complaint Chief Complaint: EDAbdPain Stated Complaint: GENERAL ILLNESS PER EMS Time Seen by Provider: 04/04/19 16:41 Hx Obtained From: Patient Onset/Duration: Lasting Days, Still Present Timing: Days Severity Initially: Severe Severity Currently: Severe Pain Intensity: 8 Pain Scale Used: 0-10 Numeric Location: Other - Lower abdomen Radiates: No Character: Cramping Aggravating Factor(s): Other: - Before and during bowel movements Alleviating Factor(s): Other: - Nausea medication provides some relief Associated Signs and Symptoms: Positive: Nausea, Diarrhea. Negative: Fever, Vomiting Allergies/Adverse Reactions: Allergies Allergy/AdvReac Type Severity Reaction Status Date / Time bee venom protein (honey bee) Allergy Severe See Comment Verified 02/08/19 23:34 onion Allergy Severe See Comment Verified 02/08/19 23:34 Sulfa (Sulfonamide Allergy Severe Unknown Verified 02/08/19 23:34 Antibiotics) Reaction Details aspirin Allergy Intermediate Nausea Verified 02/08/19 23:34 Penicillins Allergy Intermediate See Comment Verified 02/08/19 23:34 Glenn And Derivatives Allergy Unknown See Comment Verified 02/08/19 23:34 erythromycin base Allergy Unknown Verified 02/08/19 23:34 Reaction Details Home Medications: Home Medications Diazepam TAB(*) [Valium TAB(*)] 5 mg PO BID PRN 04/04/19 [History Confirmed ] Morphine TAB Extended Rel(*) [Ms Contin(*)] 30 mg PO Q12HR PRN 04/04/19 [ History Confirmed 04/04/19] Ondansetron TAB* [Zofran 4 MG Tab*] 4 mg PO Q6H PRN 04/04/19 [History Confirmed 04/04/19] Oxycodone TAB(NF) [Oxycodone HCl 10 MG] 10 mg PO Q8HR PRN 04/04/19 [History Confirmed 04/04/19] carBAMazepine TAB(*) [TEGretol TAB(*)] 100 mg PO DAILY 04/04/19 [History Confirmed 04/04/19] PMH/Surg Hx/FS Hx/Imm Hx Previously Healthy: Yes Endocrine/Hematology History: Reports: Hx Thyroid Disease Denies: Hx Diabetes, Hx Anemia, Hx Unexplained Bleeding, Other Endocrine/ Hematological Disorders Cardiovascular History: Denies: Hx Aneurysm, Hx Angina, Hx Angioplasty, Hx Auto Implanted Cardiovert Defib, Hx Cardiac Arrest, Hx Cardiomegaly, Hx Congenital Heart Disease, Hx Congestive Heart Failure, Hx Coronary Artery Disease, Hx Deep Vein Thrombosis, Hx Embolism, Hx Hypercholesterolemia, Hx Hypotension, Hx Hypertension, Hx Pacemaker/ICD, Hx Peripheral Vascular Disease, Hx Rheumatic Fever, Hx Syncope, Hx Valvular Heart Disease, Other Cardiovascular Problems/Disorders Respiratory History: Reports: Hx Asthma - as a child, Hx Pulmonary Embolism, Hx Sleep Apnea Denies: Hx Chronic Bronchitis, Hx Chronic Obstructive Pulmonary Disease (COPD ), Hx Cystic Fibrosis, Hx Lung Cancer, Hx Pleural Effusion, Hx Pneumonia, Hx Pulmonary Edema, Hx Seasonal Allergies, Other Respiratory Problems/Disorders GI History: Reports: Hx Gastroesophageal Reflux Disease, Hx Ulcer Denies: Hx Gastrointestinal Bleed, Hx Hiatal Hernia History: Reports: Other Problems/Disorders - urinary incontinence Denies: Hx Dialysis, Hx Kidney Stones, Hx Renal Disease Musculoskeletal History: Reports: Hx Arthritis - knees, right hand, Hx Back Problems, Other Musculoskeletal History - MS Denies: Hx Bursitis, Hx Congenital Bone Abnormalities, Hx Fibromyalgia, Hx Gout, Hx Orthopedic Injury, Hx Osteoporosis, Hx Scoliosis, Hx Tendonitis Sensory History: Reports: Hx Contacts or Glasses, Other Sensory Impairments - Numbness in feet Denies: Hx Cataracts, Hx Eye Injury, Hx Eye Prosthesis, Hx Glaucoma, Hx Legally Blind, Hx Macular Degeneration, Hx Vision Problem, Hx Deafness, Hx Hearing Aid, Hx Hearing Problem Opthamlomology History: Reports: Hx Contacts or Glasses, Other Sensory Impairments - Numbness in feet Denies: Hx Cataracts, Hx Eye Injury, Hx Eye Prosthesis, Hx Glaucoma, Hx Legally Blind, Hx Macular Degeneration, Hx Vision Problem Neurological History: Reports: Hx Headaches, Hx Migraine, Hx Nerve Disease, Hx Seizures, Other Neuro Impairments/Disorders - MS Denies: Hx Dementia, Hx Developmental Delay, Hx Spinal Cord Injury, Hx Transient Ischemic Attacks (TIA) Psychiatric History: Reports: Hx Anxiety, Hx Depression, Hx Suicide Attempt, Hx Substance Abuse Denies: Hx Attention Deficit Hyperactivity Disorder, Hx Eating Disorder, Hx Panic Disorder, Hx Post Traumatic Stress Disorder, Hx Inpatient Treatment, Hx Community Mental Health Tx, Hx Schizophrenia, Hx Bipolar Disorder, Hx of Violent Episodes Against Others, Other Psychiatric Issues/Disorders - Cancer History Hx Chemotherapy: Yes - For MS Hx Radiation Therapy: No - Surgical History Surgical History: Yes Surgery Procedure, Year, and Place: BREAST REDUCTION 2005, oral surgeries Hx Anesthesia Reactions: No - Immunization History Date of Tetanus Vaccine: Unknown Date of Influenza Vaccine: Unk re: Fall 2014 Infectious Disease History: No Infectious Disease History: Denies: Hx Clostridium Difficile, Hx Hepatitis, Hx Human Immunodeficiency Virus (HIV), Hx of Known/Suspected MRSA, Hx Shingles, Hx Tuberculosis, Hx Known/ Suspected VRE, Hx Known/Suspected VRSA, History Other Infectious Disease, Traveled Outside the [place] in Last 30 Days - Family History Known Family History: Positive: Cardiac Disease - Father, Diabetes Family History: FHx of spina bifida - Social History Alcohol Use: None 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 Hx Substance Use: No Substance Use Type: Reports: None Hx Tobacco Use: Yes Smoking Status (MU): Former Smoker Type: Cigarettes Amount Used/How Often: 2 cigaretts/week Length of Time of Smoking/Using Tobacco: 2 months Have You Smoked in the Last Year: No Review of Systems Negative: Fever Positive: Abdominal Pain - Lower, Diarrhea, Nausea. Negative: Vomiting All Other Systems Reviewed And Are Negative: Yes Physical Exam - Summary Physical Exam Summary: Appearance: The patient is well-nourished in no acute distress and in no acute pain. Skin: The skin is warm and dry, and skin color reflects adequate perfusion. HEENT: The head is normocephalic and atraumatic. The pupils are equal and reactive. The conjunctivae are clear and without drainage. Nares are patent and without drainage. Mouth reveals moist mucous membranes, and the throat is without erythema and exudate. The external ears are intact. The ear canals are patent and without drainage. The tympanic membranes are intact. Neck: The neck is supple with full range of motion and non-tender. There are no carotid bruits. There is no neck vein distension. Respiratory: Chest is non-tender. Lungs are clear to auscultation and breath sounds are symmetrical and equal. Cardiovascular: Heart is regular rate and rhythm. There is no murmur or rub auscultated. There is no peripheral edema and pulses are symmetrical and equal. Abdomen: The abdomen is soft. There are normal bowel sounds heard in all four quadrants and there is no organomegaly palpated. Mild lower abdominal tenderness. Musculoskeletal: There is no back tenderness noted. Extremities are non-tender with full range of motion. There is good capillary refill. There is no peripheral edema or calf tenderness elicited. Neurological: Patient is alert and oriented to person, place and time. The patient has symmetrical motor strength in all four extremities. Cranial nerves are grossly intact. Deep tendon reflexes are symmetrical and equal in all four extremities. Psychiatric: The patient has an appropriate affect and does not exhibit any anxiety or depression. Triage Information Reviewed: Yes Vital Signs On Initial Exam: Initial Vitals Temp Pulse Resp BP Pulse Ox 99.3 F 88 18 134/68 95 04/04/19 16:25 04/04/19 16:25 04/04/19 16:25 04/04/19 16:25 04/04/19 16:25 Vital Signs Reviewed: Yes Procedures - Sedation Patient Received Moderate/Deep Sedation with Procedure: No Diagnostics - Vital Signs Vital Signs Temp Pulse Resp BP Pulse Ox 04/04/19 16:25 99.3 F 88 18 134/68 95 - Laboratory Result Diagrams: 04/04/19 17:41 04/04/19 17:41 Lab Statement: Any lab studies that have been ordered have been reviewed, and results considered in the medical decision making process. Re-Evaluation - Re-Evaluation 1st re-eval Re-Evaluation Time: 20:25 Change: Improved Comment: At 20:25, pt is feeling better. Abdominal Pain Fem Course/Dx - Course Course Of Treatment: Ms. Cisneros presented nontoxic in appearance with stable vital signs. She had no episodes of diarrhea while she was here and was hydrated. Her labs were unremarkable and I will discharge her to follow-up with her PCP. - Diagnoses Provider Diagnoses: Diarrhea, Dehydration Discharge ED - Sign-Out/Discharge Documenting (check all that apply): Patient Departure - Discharge - Discharge Plan Condition: Stable Disposition: HOME Patient Education Materials: Dehydration (ED) Referrals: Chiki Chandler MD [Primary Care Provider] - Additional Instructions: Follow up with your primary care provider in 2-3 days. Keep your appointment on . Return to the ED for any new or worsening symptoms. - Billing Disposition and Condition Condition: STABLE Disposition: Home - Attestation Statements Document Initiated by Nixonibe: Yes Documenting Scribe: Katheryn Arteaga Provider For Whom Polly is Documenting (Include Credential): Hayes Wei MD Scribe Attestation: Katheryn Baez, scribed for Hayes Wei MD on 04/04/19 at 2112. Scribe Documentation Reviewed: Yes Provider Attestation: The documentation as recorded by the Katheryn mark accurately reflects the service I personally performed and the decisions made by , Hayes Wei MD Status of Scribe Document: Viewed
[2019-04-04 17:55] LABS: ABS Monocytes 0.5 10^3/ul (0-0.8); ABS Neutrophils 4.3 10^3/ul (1.5-7.7); Hematocrit 38 % (35-47); Hemoglobin 12.7 g/dL (12.0-16.0); Lymphocyte % 16.6 %; Mean Corpuscular HGB Conc 33 g/dL (31-36); Mean Corpuscular Hemoglobin 30 pg (27-31); Mean Corpuscular Volume 91 fL (80-97); Mean Platelet Volume 8.1 fL (7.4-10.4); Platelet Count 309 10^3/uL (150-450); Red Blood Count 4.21 10^6 /uL (3.70-4.87); Red Cell Distribution Width 13 % (10-15); White Blood Count 5.8 10^3/uL (3.5-10.8)
[2019-04-04 18:11] LABS: Albumin 4.4 g/dL (3.2-5.2); Albumin/Globulin Ratio 1.8 (1-3); BUN/Creatinine Ratio 9.6 (8-20); C Reactive Protein 1.86 mg/L (<8.01); Calcium 9.8 mg/dL (8.6-10.3); EGFR African American 102.5 (>60); EGFR Non-African American 84.7 (>60); Globulin 2.5 g/dL (2-4); Potassium 3.5 mmol/L (3.5-5.0); Total Bilirubin 0.5 mg/dL (0.2-1.0); Total Protein 6.9 g/dL (6.4-8.9)
[2019-04-04 20:45] VITALS: BP 113/67
== END 2019-04-04 20:55 | disposition home or self-care (01) ==
LOC: ED 16:21
DX: R19.7 Diarrhea, unspecified (principal); E86.0 Dehydration; R11.0 Nausea; R56.9 Unspecified convulsions; Z88.6 Allergy status to analgesic agent; Z88.1 Allergy status to other antibiotic agents; Z91.030 Bee allergy status; Z88.0 Allergy status to penicillin; Z91.018 Allergy to other foods; Z87.891 Personal history of nicotine dependence
CPT/HCPCS: 36415; 80053; 85025; 86140; 96360; 99283

== ENCOUNTER 2019-04-05 08:12 | Inpatient (IN) | payer MEDICARE, MEDICAID ==
[2019-04-05] MEDS ORDERED: NS 0.9% 1000 ML** 1,000 ML IV ONE ×2 (08:25→09:06)
[2019-04-05] MEDS ORDERED: Iohexol 300* (CONTRAST) 10 ML SDV IV ONE (08:42)
--- NOTE | 2019-04-05 08:47 | ED ---
Abdominal Pain/Female - HPI Summary HPI Summary: Pt is a 48 y/o F presenting to the ED brought in by EMS for GI issues. Pt states she has had abdominal pain in the mid-lower abdomen since Thursday, . She reports N/V/D, decreased appetite, and a low grade fever. She denies CP or SOB. She notes she was seen here yesterday, given fluids, and sent home. - History of Current Complaint Chief Complaint: EDAbdPain Stated Complaint: NAUSEA/VOMITING PER EMS Time Seen by Provider: 04/05/19 08:31 Hx Obtained From: Patient Onset/Duration: Sudden Onset, Lasting Days, Still Present Timing: Days Severity Initially: Moderate Severity Currently: Severe Pain Intensity: 10 Pain Scale Used: 0-10 Numeric Location: Umbilical Radiates: No Aggravating Factor(s): Nothing Alleviating Factor(s): Nothing Associated Signs and Symptoms: Positive: Fever, Decreased Appetite, Nausea, Vomiting, Diarrhea. Negative: Chest Pain Allergies/Adverse Reactions: Allergies Allergy/AdvReac Type Severity Reaction Status Date / Time bee venom protein (honey bee) Allergy Severe See Comment Verified 02/08/19 23:34 onion Allergy Severe See Comment Verified 02/08/19 23:34 Sulfa (Sulfonamide Allergy Severe Unknown Verified 02/08/19 23:34 Antibiotics) Reaction Details aspirin Allergy Intermediate Nausea Verified 02/08/19 23:34 Penicillins Allergy Intermediate See Comment Verified 02/08/19 23:34 [place] And Derivatives Allergy Unknown See Comment Verified 02/08/19 23:34 erythromycin base Allergy Unknown Verified 02/08/19 23:34 Reaction Details Home Medications: Home Medications [place] Carbonate ER (NF) [[place] Carbonate ER] 900 mg PO BEDTIME 04/05/19 [ History Confirmed 04/05/19] Oxybutynin XL TAB* [Ditropan XL TAB*] 10 mg PO BEDTIME 04/05/19 [History Confirmed 04/05/19] PMH/Surg Hx/FS Hx/Imm Hx Previously Healthy: Yes Endocrine/Hematology History: Reports: Hx Thyroid Disease Denies: Hx Diabetes, Hx Anemia, Hx Unexplained Bleeding, Other Endocrine/ Hematological Disorders Cardiovascular History: Denies: Hx Aneurysm, Hx Angina, Hx Angioplasty, Hx Auto Implanted Cardiovert Defib, Hx Cardiac Arrest, Hx Cardiomegaly, Hx Congenital Heart Disease, Hx Congestive Heart Failure, Hx Coronary Artery Disease, Hx Deep Vein Thrombosis, Hx Embolism, Hx Hypercholesterolemia, Hx Hypotension, Hx Hypertension, Hx Pacemaker/ICD, Hx Peripheral Vascular Disease, Hx Rheumatic Fever, Hx Syncope, Hx Valvular Heart Disease, Other Cardiovascular Problems/Disorders Respiratory History: Reports: Hx Asthma - as a child, Hx Pulmonary Embolism, Hx Sleep Apnea Denies: Hx Chronic Bronchitis, Hx Chronic Obstructive Pulmonary Disease (COPD ), Hx Cystic Fibrosis, Hx Lung Cancer, Hx Pleural Effusion, Hx Pneumonia, Hx Pulmonary Edema, Hx Seasonal Allergies, Other Respiratory Problems/Disorders GI History: Reports: Hx Gastroesophageal Reflux Disease, Hx Ulcer Denies: Hx Gastrointestinal Bleed, Hx Hiatal Hernia History: Reports: Other Problems/Disorders - urinary incontinence Denies: Hx Dialysis, Hx Kidney Stones, Hx Renal Disease Musculoskeletal History: Reports: Hx Arthritis - knees, right hand, Hx Back Problems, Other Musculoskeletal History - MS Denies: Hx Bursitis, Hx Congenital Bone Abnormalities, Hx Fibromyalgia, Hx Gout, Hx Orthopedic Injury, Hx Osteoporosis, Hx Scoliosis, Hx Tendonitis Sensory History: Reports: Hx Contacts or Glasses, Other Sensory Impairments - Numbness in feet Denies: Hx Cataracts, Hx Eye Injury, Hx Eye Prosthesis, Hx Glaucoma, Hx Legally Blind, Hx Macular Degeneration, Hx Vision Problem, Hx Deafness, Hx Hearing Aid, Hx Hearing Problem Opthamlomology History: Reports: Hx Contacts or Glasses, Other Sensory Impairments - Numbness in feet Denies: Hx Cataracts, Hx Eye Injury, Hx Eye Prosthesis, Hx Glaucoma, Hx Legally Blind, Hx Macular Degeneration, Hx Vision Problem Neurological History: Reports: Hx Headaches, Hx Migraine, Hx Nerve Disease, Hx Seizures, Other Neuro Impairments/Disorders - MS Denies: Hx Dementia, Hx Developmental Delay, Hx Spinal Cord Injury, Hx Transient Ischemic Attacks (TIA) Psychiatric History: Reports: Hx Anxiety, Hx Depression, Hx Suicide Attempt, Hx Substance Abuse Denies: Hx Attention Deficit Hyperactivity Disorder, Hx Eating Disorder, Hx Panic Disorder, Hx Post Traumatic Stress Disorder, Hx Inpatient Treatment, Hx Community Mental Health Tx, Hx Schizophrenia, Hx Bipolar Disorder, Hx of Violent Episodes Against Others, Other Psychiatric Issues/Disorders - Cancer History Hx Chemotherapy: Yes - For MS Hx Radiation Therapy: No - Surgical History Surgery Procedure, Year, and Place: BREAST REDUCTION 2005, oral surgeries Hx Anesthesia Reactions: No - Immunization History Date of Tetanus Vaccine: Unknown Date of Influenza Vaccine: Unk re: Fall 2014 Infectious Disease History: No Infectious Disease History: Denies: Hx Clostridium Difficile, Hx Hepatitis, Hx Human Immunodeficiency Virus (HIV), Hx of Known/Suspected MRSA, Hx Shingles, Hx Tuberculosis, Hx Known/ Suspected VRE, Hx Known/Suspected VRSA, History Other Infectious Disease, Traveled Outside the [place] in Last 30 Days - Family History Known Family History: Positive: Cardiac Disease - Father, Diabetes Family History: FHx of spina bifida - Social History Alcohol Use: None 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 GENERAL: Patient is a well-developed and nourished female who is lying comfortable in the stretcher. Patient is not in any acute respiratory distress. HEAD AND FACE: No signs of trauma. No ecchymosis, hematomas or skull depressions. No sinus tenderness. EYES: PERRLA, EOMI x 2, No injected conjunctiva, no nystagmus. EARS: Hearing grossly intact. Ear canals and tympanic membranes are within normal limits. MOUTH: Oral mucosa is dry NECK: Supple, trachea is midline, no adenopathy, no JVD, no carotid bruit, no c- spine tenderness, neck with full ROM. CHEST: Symmetric, no tenderness at palpation. LUNGS: Clear to auscultation bilaterally. No wheezing or crackles. CVS: Regular rate and rhythm, S1 and S2 present, no murmurs or gallops appreciated. ABDOMEN: Soft, mild diffuse abdominal tenderness. No signs of distention. No rebound, no guarding, and no masses palpated. Bowel sounds are normal. EXTREMITIES: FROM in all major joints, no edema, no cyanosis or clubbing. NEURO: Alert and oriented x 3. No acute neurological deficits. Speech is normal and follows commands. SKIN: Dry and warm. Triage Information Reviewed: Yes Vital Signs On Initial Exam: Initial Vitals Temp Pulse Resp BP Pulse Ox 97.8 F 80 16 122/70 99 04/05/19 08:16 04/05/19 08:16 04/05/19 08:16 04/05/19 08:16 04/05/19 08:16 Vital Signs Reviewed: Yes Procedures - Sedation Patient Received Moderate/Deep Sedation with Procedure: No Diagnostics - Vital Signs Vital Signs Temp Pulse Resp BP Pulse Ox 04/05/19 08:36 75 98 04/05/19 08:16 97.8 F 80 16 122/70 99 - Laboratory Result Diagrams: 04/05/19 08:43 04/05/19 08:43 Lab Statement: Any lab studies that have been ordered have been reviewed, and results considered in the medical decision making process. - CT CT a/p CT Interpretation Completed By: Radiologist Summary of CT Findings: No abnormal masses or fluid collections are noted. Diverticula are noted in the sigmoid colon. No abnormal masses or fluid collections are noted. ED physician has reviewed this report. Abdominal Pain Fem Course/Dx - Course Course Of Treatment: Patient is a 48-year-old female who presents to the emergency department with a chief complaint of having diffuse abdominal pain that started with nausea vomiting and diarrhea. Blood thinners results without any significant abnormality except for potassium level of 3.3, glucose 109, magnesium 1.8, alkaline phosphatase 188. Urinalysis is negative for UTI. It seems that the urinalysis is contaminated. Therefore well send the urine for cultures. Abdominal pelvic CT impression: no abnormal masses or fluid collections are noted. Diverticula are noted in the sigmoid colon. No abnormal masses or fluid collections are noted. C diff is negative. In the ED course the patient was given IV fluids, magnesium, potassium and Zofran for nausea and vomiting. She was also given Bentyl for the abdominal cramping. In the ED course the patient had a couple episodes of diarrhea and she is unable to get to the toilet since the patient is complaining of bilateral extremity weakness. The patient is unable to care for herself. At this time the patient is hemodynamically stable. I discussed my physical exam and findings with Dr. Fabian who accepted the patient for admission. - Diagnoses Provider Diagnoses: Nausea, vomiting, and diarrhea Discharge ED - Sign-Out/Discharge Documenting (check all that apply): Patient Departure - Discharge Plan Condition: Stable Disposition: ADMITTED TO [facility] - Billing Disposition and Condition Condition: STABLE Disposition: Admitted to [facility] - Attestation Statements Document Initiated by Nixnoibred: Yes Documenting Scribe: Ana Larios Provider For Whom Polly is Documenting (Include Credential): Kevin Logan MD. Scribe Attestation: IAna, scribed for Kevin Logan MD. on 04/05/19 at 1850. Scribe Documentation Reviewed: Yes Provider Attestation: The documentation as recorded by the nixonibred, Ana Larios accurately reflects the service I personally performed and the decisions made by me, Kevin Logan MD. Status of Scribe Document: Viewed Consult Consult: [id number] - I spoke with Dr. Fabian who will be accepting the pt to [facility] with dx of nausea, vomiting, and diarrhea.
[2019-04-05 08:51] LABS: ABS Lymphocytes 0.9 10^3/ul (1.0-4.8); ABS Monocytes 0.4 10^3/ul (0-0.8); ABS Neutrophils 4.8 10^3/ul (1.5-7.7); Hematocrit 38 % (35-47); Hemoglobin 12.8 g/dL (12.0-16.0); Lymphocyte % 14.7 %; Mean Corpuscular HGB Conc 34 g/dL (31-36); Mean Corpuscular Hemoglobin 31 pg (27-31); Mean Corpuscular Volume 92 fL (80-97); Platelet Count 265 10^3/uL (150-450); Red Blood Count 4.16 10^6 /uL (3.70-4.87); Red Cell Distribution Width 14 % (10-15); White Blood Count 6.1 10^3/uL (3.5-10.8)
[2019-04-05] MEDS ORDERED: Metoclopramide IV* 5 MG/ML 2 ML VIAL IV ONE (09:06)
[2019-04-05 09:07] LABS: ALT 22 U/L (7-52); AST 29 U/L (13-39); Albumin 4.3 g/dL (3.2-5.2); Alkaline Phosphatase 188 U/L (34-104); Amylase 14 U/L (29-103); Anion Gap 8 mmol/L (2-11); BUN/Creatinine Ratio 6.5 (8-20); Blood Urea Nitrogen 5 mg/dL (6-24); C Reactive Protein 1.16 mg/L (<8.01); CO2 Carbon Dioxide 27 mmol/L (22-32); Calcium 9.6 mg/dL (8.6-10.3); Chloride 106 mmol/L (101-111); EGFR African American 96.4 (>60); EGFR Non-African American 79.7 (>60); Globulin 2.1 g/dL (2-4); Glucose 109 mg/dL (70-100); Magnesium 1.8 mg/dL (1.9-2.7); Potassium 3.3 mmol/L (3.5-5.0); Sodium 141 mmol/L (135-145); Total Protein 6.4 g/dL (6.4-8.9)
[2019-04-05 09:32] LABS: Urine Appearance Clear; Urine Bacteria 1+ (Absent); Urine Bilirubin Negative (Negative); Urine Blood Negative (Negative); Urine Color Yellow; Urine Glucose Negative (Negative); Urine Ketones Negative (Negative); Urine Nitrite Negative (Negative); Urine Protein Negative (Negative); Urine Red Blood Cell 1+(3-5/hpf) (Absent); Urine Specific Gravity 1.009 (1.010-1.030); Urine Squamous Epithelial Cell Present (Absent); Urine Urobilinogen Negative (Negative); Urine White Blood Cell 1+(6-10/hpf) (Absent)
[2019-04-05] MEDS ORDERED: Dicyclomine CAP* 10 MG PO ONE (11:59)
[2019-04-05] MEDS ORDERED: Diphenoxylat/Atrop 2.5-0.025M* 1 TAB PO ONE (12:36)
[2019-04-05] MEDS ORDERED: Magnesium Oxide TAB* 400 MG PO ONE (12:36)
[2019-04-05] MEDS ORDERED: Potassium Chlor TAB* 20 MEQ TAB.ER PO ONE (12:36)
[2019-04-05] MEDS ORDERED: Acetaminophen TAB* 325 MG PO PRN (15:33)
[2019-04-05] MEDS ORDERED: Morphine TAB Extended Release (*) 30 MG TAB.ER PO PRN (15:36)
[2019-04-05] MEDS ORDERED: Loperamide CAP* 2 MG PO PRN (15:41)
[2019-04-05] MEDS ORDERED: Enoxaparin(*) 40 MG/0.4 ML SYR SUBCUT SCH (17:00)
[2019-04-05] MEDS ORDERED: cefTRIAXone(*) 1 GM in NS 0.9% 50 ML* 50 ML IVPB SCH (17:00)
[2019-04-05] MEDS: oxyCODONE TAB* 5 MG TAB PO PRN (17:41)
[2019-04-05] MEDS ORDERED: Vilazodone (NF) 40 MG TAB PO ONE (17:50)
--- NOTE | 2019-04-05 19:30 | HP ---
CC: Dr. Chandler * HISTORY AND PHYSICAL: DATE OF ADMISSION: 04/05/19 PROVIDER: Karla Valencia NP PRIMARY CARE PROVIDER: Dr. Chandler. ATTENDING PHYSICIAN WHILE IN THE HOSPITAL: Dr. Talisha Fabian * (dictated by Karla Valencia NP). CHIEF COMPLAINT: 1. Diarrhea. 2. Fdc admission. HISTORY OF PRESENT ILLNESS: Ms. Cisneros is a 48-year-old female with a past medical history significant for MS; asthma; depression; migraines; urinary incontinence; history of provoked DVT; sleep apnea, on CPAP; seizure disorder; chronic low back pain; who presented to the emergency room with complaints of diarrhea. The patient does report that she was discharged from [facility] at approximately 12:30 on Thursday, and Thursday evening, she started developing diarrhea. The patient reports that when she returned home she was supposed to have aide service upon returning home and the aide service was not there. She reports that Thursday night and to Thursday the diarrhea got worse. Again, reports not having any aide service at home. Due to the progressively worsening diarrhea, she presented to the emergency room on Thursday. The patient was seen and evaluated and discharged back home. She re-presented to the emergency room today. Again, the patient reports that she has no aide service to help her at home, so she came back to the emergency room due to not having help at home. The patient does report that when she returned home from [facility] she did not want to be at home any more as she did not have any help at home and anybody to care for her. While in the emergency room, the patient had routine lab work. She was found to have mild hypokalemia, and due to her diarrhea, the patient was requesting to be admitted to the hospital due to no aide help at home. She will be admitted under retirement admission. PAST MEDICAL HISTORY: Significant for: 1. MS. 2. History of optic neuritis. 3. Asthma. 4. Depression. 5. Migraines. 6. Urinary incontinence. 7. Provoked left femoral DVT. 8. History of myositis. 9. Obstructive sleep apnea, on CPAP. 10. Seizure disorder. 11. Chronic low back pain. PAST SURGICAL HISTORY: Breast reduction. HOME MEDICATIONS: Include: 1. Oxycodone 10 mg 1 tablet every 8 hours as needed for pain. 2. Morphine 30 mg every 12 hours as needed for pain. 3. Diazepam 1 tablet 2 times daily as needed for anxiety, the patient reports is not taking. 4. Bisacodyl 5 mg 1 tablet as needed for constipation. 5. Myrbetriq 50 mg 1 tablet in the morning. 6. Viibryd 40 mg 1 tablet daily. 7. Fexofenadine 180 mg 1 tablet in the morning. 8. Oxybutynin 10 mg at bedtime. 9. Baclofen 20 mg 2 tablets 2 times daily. 10. Amantadine 100 mg 1 tablet twice daily. 11. Carbamazepine 200 mg 1 tablet twice daily. 12. [place] 900 mg at bedtime. 13. Levothyroxine 125 mcg daily. 14. Rexulti 1 mg daily. 15. Zofran 4 mg every 6 hours as needed for nausea. 16. Linzess 290 mcg 1 tablet in the morning as needed for constipation, IBS. ALLERGIES: ASPIRIN, PENICILLIN, SULFA, BEE VENOM, ONIONS, and CITRUS. FAMILY HISTORY: Mother at the age of 60 from a heart attack, also had diabetes. Father with hyperlipidemia. 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 No smoking or drug use. She is . She has a 12-year-old son. Surrogate decision maker in the event she is unable to make her own decisions is her ex- , Humera Lino. She reports she is a DNR/DNI. She is minimally ambulatory at home and does use a wheelchair and transfers from wheelchair to toilet and chair. REVIEW OF SYSTEMS: The patient denies any fevers, chills, unintended weight loss, chest pain, or edema. Denies any cough, hemoptysis, or shortness of breath. She does report nausea, vomiting, diarrhea, abdominal cramping. Denies any gross hematuria or dysuria. She does report generalized weakness that is chronic. No visual complaints, dysphagia, arthralgias, myalgias, rashes , lesions, open sores, psychosis, or anxiety. PHYSICAL EXAMINATION GENERAL: At this time, Ms. Cisneros is a 48-year-old female. She is alert and oriented, resting on the stretcher in the emergency room. She is in no acute distress. VITAL SIGNS: Blood pressure 138/76, heart rate is 72, respirations are 18, O2 saturation 99%, temperature was 97.8. HEENT: Head is atraumatic, normocephalic. Eyes: EOMs are intact. Sclerae anicteric and not pale. Oral mucosa appeared to be moist. NECK: Supple. LUNGS: Clear to auscultation bilaterally. No wheezes, rales, or rhonchi. CARDIAC: S1, S2. Regular rate and rhythm. No murmurs, rubs, or gallops. ABDOMEN: Soft and nontender. Bowel sounds are present x4. EXTREMITIES: She is able to move all 4 extremities. She does have limited range of motion to her lower extremities. There is no clubbing or cyanosis. Pedal pulses are +2 bilaterally. NEUROLOGIC: She is awake, alert, oriented x3. Speech is clear. Thought process is intact. There are no gross focal deficits. SKIN: Intact. DIAGNOSTIC STUDIES/LAB DATA: WBCs are 6.1, RBCs 4.16, hemoglobin 12.8, hematocrit is 38, platelet count is 265. Sodium 141, potassium 3.3, chloride 106, carbon dioxide was 27, anion gap was 8, BUN was 5, creatinine 0.77, glucose was 109, lactic acid 0.8, calcium 9.6, magnesium 1.8. ASTs were 29, ALTs were 22, alkaline phosphatase was 188. C-reactive protein was 1.16. Lipase was less than 10, amylase was 14. BNP was 25. Urine; pH was 7.0; specific gravity 1.009; urine protein, ketones, blood, nitrites, bilirubin, and urobilinogen were all negative; leukocyte esterase was 2+; wbc's were 1+; rbc's 1+; squamous epithelial cells were present; bacteria was 1+; glucose was negative. She had a CT of abdomen and pelvis, radiologist's impression: Diverticula are noted in the sigmoid colon. No abnormal masses or fluid collections are noted. ASSESSMENT AND PLAN: Ms. Cisneros is a 48-year-old female with a past medical history significant for multiple sclerosis, depression, asthma, migraines, urinary incontinence, obstructive sleep apnea, seizures who presented to the emergency room with complaints of diarrhea and no help at home. She will be admitted under retirement care. 1. Diarrhea. She will be admitted due to diarrhea, due to lack of home support as the patient's aide service has not shown to assist her at home and she has had multiple episodes of diarrhea. Again, this will be a retirement admission with supportive care. I will give her Imodium as needed for diarrhea. 2. The patient does appear to have a urinary tract infection. I will treat her with 1 g of ceftriaxone IV this evening and then she can be transitioned to oral medications in the a.m. 3. Multiple sclerosis. The patient should continue on her home medications as previously prescribed. 4. Chronic back pain. She can take her baclofen, morphine, and oxycodone as previously prescribed. 5. History of depression. She should continue on carbamazepine as previously prescribed. 6. Bipolar. She should continue on lithium 900 mg at bedtime. 7. Hypothyroid. She should continue on levothyroxine 125 mcg p.o. daily. 8. FEN: She can have a regular diet. 9. Code status: She is a full code. 10. DVT prophylaxis: I will place her on Lovenox subcu. TIME SPENT: Time spent on this admission was 60 minutes, greater than half that time was spent at the bedside reviewing events leading thus far to her hospitalization, performing physical exam, and reviewing my plan of care. I have discussed this with my attending, Dr. Talisha Fabian; she is in agreement with my plan. KARLA VALENCIA, DONNY [id number]/[facility] #: [id number] SHIRA
[2019-04-05] MEDS: Amantadine CAP* 100 MG PO SCH (20:25)
[2019-04-05] MEDS: Baclofen TAB* 10 MG PO SCH (20:25)
[2019-04-05] MEDS: carBAMazepine TAB(*) 200 MG PO SCH (20:26)
[2019-04-05] MEDS ORDERED: Oxybutynin XL TAB* 5 MG PO SCH (21:00)
[2019-04-05] MEDS ORDERED: Lithium Carbonate ER* 450 MG TAB.ER PO SCH (21:00)
[2019-04-06] MEDS: Ondansetron TAB* 4 MG PO PRN ×3 (00:14→15:10)
[2019-04-06] MEDS: oxyCODONE TAB* 5 MG TAB PO PRN ×2 (01:57→15:09)
[2019-04-06] MEDS ORDERED: Levothyroxine TAB* 125 MCG TAB PO SCH (06:00)
[2019-04-06 06:47] LABS: BUN/Creatinine Ratio 4.2 (8-20); Calcium 8.7 mg/dL (8.6-10.3); EGFR African American 105.9 (>60); EGFR Non-African American 87.5 (>60); Potassium 3.2 mmol/L (3.5-5.0)
[2019-04-06] MEDS ORDERED: CMCS: Vilazodone (NF) 40 MG TAB PO SCH (09:00)
[2019-04-06] MEDS ORDERED: Influenza VAC *QUAD* 2019-20* 0.5 ML SYRINGE IM ONE (09:00)
[2019-04-06] MEDS ORDERED: NFT: Mirabegron (NF) 50 MG TAB PO SCH (09:00)
[2019-04-06] MEDS ORDERED: Potassium Chlor TAB* 20 MEQ TAB.ER PO ONE (09:05)
[2019-04-06] MEDS: Amantadine CAP* 100 MG PO SCH (09:17)
[2019-04-06] MEDS: Baclofen TAB* 10 MG PO SCH (09:17)
[2019-04-06] MEDS: carBAMazepine TAB(*) 200 MG PO SCH (09:18)
--- NOTE | 2019-04-06 11:07 | PN ---
Subjective Date of Service: 04/06/19 Interval History: Patient is requesting to stay 1 more day. reports that she is scared about return home, as she feels services will not be able when she return home. Patient was reassured that social work and case management will be working with her to assure she has home services upon returning [place]. Reports that her diarrhea has improved 99%, reports occasional abdominal cramping Denies fever or chills, denies chest pain or shortness of breath. Family History: Unchanged from Admission Social History: Unchanged from Admission Past Medical History: Unchanged from Admission Objective Active Medications: Acetaminophen (Tylenol Tab*) 650 mg PO Q4H PRN PRN Reason: MILD PAIN or TEMP > 100.4 Last Admin: 04/05/19 19:39 Dose: 650 mg Amantadine HCl (Symmetrel Cap*) 100 mg PO BID [facility] Last Admin: 04/06/19 09:17 Dose: 100 mg Baclofen (Lioresal Tab*) 20 mg PO BID [facility] Last Admin: 04/06/19 09:17 Dose: 20 mg Carbamazepine (Tegretol Tab(*)) 200 mg PO BID [facility] Last Admin: 04/06/19 09:18 Dose: 200 mg Enoxaparin Sodium (Lovenox(*)) 40 mg SUBCUT Q24H [facility] Last Admin: 04/05/19 17:21 Dose: 40 mg Ceftriaxone Sodium 1 gm/ (Sodium Chloride) 50 mls @ 100 mls/hr IVPB Q24H [facility] Last Admin: 04/05/19 17:36 Dose: 100 mls/hr Levothyroxine Sodium (Synthroid Tab*) 125 mcg PO DAILY@0600 [facility] Last Admin: 04/06/19 06:06 Dose: 125 mcg Poyen Carbonate (Poyen Carbonate Er Tab*) 900 mg PO BEDTIME [facility] Last Admin: 04/05/19 20:26 Dose: 900 mg Loperamide HCl (Imodium Cap*) 2 mg PO .SEE DIRECTIONS PRN PRN Reason: DIARRHEA Mirabegron (Myrbetriq (Nf)) 50 mg PO QAM [facility] Morphine Sulfate (Ms Contin(*)) 30 mg PO Q12HR PRN PRN Reason: PAIN - MODERATE Last Admin: 04/06/19 04:43 Dose: 30 mg Ondansetron HCl (Zofran Tab*) 4 mg PO Q6H PRN PRN Reason: NAUSEA Last Admin: 04/06/19 06:06 Dose: 4 mg Oxybutynin Chloride (Ditropan Xl Tab*) 10 mg PO BEDTIME [facility] Last Admin: 04/05/19 20:25 Dose: 10 mg Oxycodone HCl (Roxycodone Tab*) 10 mg PO Q8HR PRN PRN Reason: PAIN - MODERATE Last Admin: 04/06/19 01:57 Dose: 10 mg Vilazodone HCl (Viibryd (Nf)) 40 mg PO DAILY [facility] Last Admin: 04/06/19 09:18 Dose: 40 mg Vital Signs - 8 hr 04/06/19 04/06/19 04/06/19 04:01 04:43 06:15 Temperature Pulse Rate Respiratory 16 18 18 Rate Blood Pressure (mmHg) O2 Sat by Pulse Oximetry 04/06/19 07:15 Temperature 98.1 F Pulse Rate 75 Respiratory 22 Rate Blood Pressure 122/64 (mmHg) O2 Sat by Pulse 100 Oximetry Oxygen Devices in Use Now: None Appearance: appears comfortable resting in bed, no acute distress. Eyes: No Scleral Icterus Ears/Nose/Mouth/Throat: Clear Oropharnyx, Mucous Membranes Moist Neck: NL Appearance and Movements; NL JVP, Trachea Midline Respiratory: Symmetrical Chest Expansion and Respiratory Effort, Clear to Auscultation Cardiovascular: NL Sounds; No Murmurs; No JVD, No Edema Abdominal: NL Sounds; No Tenderness; No Distention Extremities: No Edema, No Clubbing, Cyanosis Skin: No Rash or Ulcers Neurological: Alert and Oriented x 3 Nutrition: Taking PO's Result Diagrams: 04/05/19 08:43 04/06/19 06:00 Microbiology and Other Data: Microbiology 04/05/19 08:56 Urine Culture - Final Urine 04/05/19 09:57 Stool Gross Appearance - Final Stool C. difficile DNA Amplification - Final 027 Presumptive NEGATIVE Toxigenic C.diff NEGATIVE 04/05/19 10:12 Stool Gross Appearance - Final Stool Stool Lactoferrin - Final Assess/Plan/Problems-Billing Assessment: Ms. Cisneros is a 48 y.o female with MS who was recently discharged from [facility] on thursday , reports that she returned home and did not have aide service set up, started having episodes of diarrhea and reported to the emergency room d /t lack of help at home. - Patient Problems (1) Diarrhea Status: Acute Code(s): R19.7 - DIARRHEA, UNSPECIFIED SNOMED Code(s): 06483434 Comment: now controlled with immodium (2) UTI (urinary tract infection) Status: Acute Priority: High Onset Date: 04/14/14 Comment: UA positive for UTI - urine culture without bacteria - will stop ceftriaxone (3) Depression Status: Chronic Code(s): F32.9 - MAJOR DEPRESSIVE DISORDER, SINGLE EPISODE, UNSPECIFIED SNOMED Code(s): 44774672 Comment: - Mood stable, continue home meds (4) Multiple sclerosis Status: Chronic Code(s): G35 - MULTIPLE SCLEROSIS SNOMED Code(s): 24621712 Comment: -Stable - continue home medication- baclofen, amentadine (5) DVT prophylaxis Status: Acute Priority: Medium Code(s): JNT1217 - SNOMED Code(s): 892141668 Comment: history of DVT. continue lovenox subQ (6) DNR (do not resuscitate) Status: Acute Status and Disposition: discharge home - when aide service is available at home. Aide service is available at home starting tomorrow morning at 8 am- Patient wishes to return home. Discharge plan in place- reviewed urine culture with patient - no bacteria in culture and will stop antibiotics
[2019-04-06 15:30] VITALS: BP 129/73
--- NOTE | 2019-04-06 22:42 | DS ---
DISCHARGE SUMMARY: DATE OF ADMISSION: 04/05/19 DATE OF DISCHARGE: 04/06/19 PROVIDER: Karla Valencia NP PRIMARY CARE PROVIDER: Dr. Chandler. ATTENDING PHYSICIAN WHILE IN THE HOSPITAL: Talisha Fabian DO * (dictated by Karla Valencia NP). PRIMARY DIAGNOSES: 1. Diarrhea. 2. Hypokalemia. SECONDARY DIAGNOSES: 1. Multiple sclerosis. 2. History of optic neuritis. 3. Asthma. 4. Depression. 5. Migraines. 6. Urinary incontinence. 7. Obstructive sleep apnea, on CPAP. 8. Seizure disorder. 9. Chronic back pain. STUDIES COMPLETED WHILE IN THE HOSPITAL: She has had a CT of the abdomen and pelvis, radiologist's impression: Diverticula noted in the sigmoid colon. No abnormal masses or fluid collections are noted. She had a CBC and a BMP which were essentially within normal limits other than a potassium of 3.2 for which she received potassium supplementation. DISCHARGE MEDICATIONS: New home medications: Imodium 2 mg every 4 hours as needed for diarrhea. Continued home medications: 1. Oxybutynin XL 10 mg at bedtime. 2. [place] 900 mg p.o. at bedtime. 3. Linzess 290 mcg in the a.m. 4. Zofran q.6 hours as needed. 5. Roxanol-T 1 mg every 6 hours. 6. Levothyroxine 125 mcg p.o. daily. 7. Tegretol 200 mg p.o. b.i.d. 8. Nellie 180 mg p.o. daily. 9. Baclofen 20 mg p.o. b.i.d. 10. Amantadine 100 mg p.o. b.i.d. 11. Viibryd 40 mg p.o. daily. 12. Myrbetriq 50 mg p.o. q.a.m. 13. Oxycodone 10 mg every 8 hours as needed. 14. Morphine 30 mg every 12 hours as needed. 15. Diazepam 5 mg p.o. b.i.d. p.r.n. HISTORY OF PRESENT ILLNESS AND HOSPITAL COURSE: Ms. Cisneros is a 48-year-old female with a past medical history significant for MS; asthma; depression; migraines; urinary incontinence; history of obstructive sleep apnea, on CPAP; seizure disorder; and chronic back pain who presented to [facility] with complaints of diarrhea and unable to care for herself at home. The patient was recently discharged from [facility] on Thursday and was to have aide service set up at home. Unfortunately, the aide service was not set up prior to the patient's return to home and she had no help at home. The patient reports that she had excessive diarrhea and was unable to care for herself, so she presented to the emergency room for evaluation. The patient was subsequently admitted to the hospital under snf care due to her diarrhea and no help at home with aide service. The patient was given Imodium, her diarrhea resolved. The patient was feeling better. She was tolerating p.o. fluids without difficulty. Case Management and Social Work have contacted her home health aide service which has been set up to start tomorrow morning at 8 a.m. The patient was advised of the service starting tomorrow at 8 a.m. and wishes to be discharged home. At this time, the patient is stable to be discharged back home. Vital signs are as follows: Blood pressure 129/73, heart rate 72, respirations 18, O2 saturation 100%, temperature was 98.3. DISCHARGE PLAN: Ms. Cisneros will be discharged back home. Activity as tolerated. 1. Diarrhea. She can take Imodium every 4 hours as needed for diarrhea. If she continues to have persistent diarrhea, I recommend following up with her primary care provider for further evaluation. 2. Hypokalemia. The patient should have a repeat BMP in 1 week. I suspect that her hypokalemia is related to her diarrhea. Now that her diarrhea has resolved and she is able to tolerate p.o. food and fluids, her hypokalemia should resolve. I will potassium 10 mEq p.o. daily for 7 days and then she should have a repeat BMP. 3. MS. She should continue her previous home medications as previously prescribed. 4. Depression. She should continue on her home medications as previously prescribed. 5. FEN. She can have a regular diet. 6. Code status. She is a DNR/DNI per the patient's request. TIME SPENT: Time spent on this discharge was 45 minutes, greater than half that time was spent at the bedside reviewing discharge plans and instructions. CONDITION ON DISCHARGE: Stable. DISPOSITION ON DISCHARGE: Home. I have discussed this with my attending Dr. Talisha Fabian; she is in agreement with my plan. KARLA VALENCIA, ALUMINUM SIDING INSTALLER [id number]/[facility] #: [id number] [facility]'S HOSPITALSerena
== END 2019-04-06 17:00 | disposition home or self-care (01) | DRG 392 ==
LOC: ED 08:12 → MED 15:33
PROVIDERS: ADMIT Hospitalist; ATTEND Hospitalist
DX: R19.7 Diarrhea, unspecified (principal); K21.9 Gastro-esophageal reflux disease without esophagitis; G47.33 Obstructive sleep apnea (adult) (pediatric); J45.909 Unspecified asthma, uncomplicated; M17.0 Bilateral primary osteoarthritis of knee; M19.041 Primary osteoarthritis, right hand; G35 Multiple sclerosis; G43.909 Migraine, unspecified, not intractable, without status migrainosus; F41.9 Anxiety disorder, unspecified; G40.909 Epilepsy, unspecified, not intractable, without status epilepticus; Z66 Do not resuscitate; G89.29 Other chronic pain; R32 Unspecified urinary incontinence; M54.5 Low back pain; K57.30 Diverticulosis of large intestine without perforation or abscess without bleeding; E87.6 Hypokalemia; F32.9 Major depressive disorder, single episode, unspecified; Z91.5 Personal history of self-harm; Z87.891 Personal history of nicotine dependence; Z88.1 Allergy status to other antibiotic agents; Z91.030 Bee allergy status; Z88.0 Allergy status to penicillin; Z88.2 Allergy status to sulfonamides; Z88.8 Allergy status to other drugs, medicaments and biological substances; Z91.018 Allergy to other foods; Z86.711 Personal history of pulmonary embolism; Z86.718 Personal history of other venous thrombosis and embolism; Z82.49 Family history of ischemic heart disease and other diseases of the circulatory system; Z83.49 Family history of other endocrine, nutritional and metabolic diseases; Z83.3 Family history of diabetes mellitus
CPT/HCPCS: 36415; 74177; 80048; 80053; 81003; 81015; 82150; 83605; 83630; 83690; 83735; 83880; 85025; 86140; 87045; 87046; 87086; 87493; 87899; 90686; 96361; 96374; 99284; A9270-GY; J0696; J1650; J2765; Q9967

== ENCOUNTER 2019-05-25 11:10 | Emergency (ER) | payer MEDICARE, MEDICAID ==
--- OUTSIDE RECORDS SUMMARY | 2019-05-25 11:57 | XMS REPORT ---
:1970 Author Organization [facility] Health Care Team Providers Name Role Phone Miah, Michael Unavailable Unavailable PROBLEMS Unknown Problems ALLERGIES No Information ENCOUNTERS Encounter Location Date Diagnosis [address], [place] Apr, [address] Apr, [address] Apr, [address] October, [address], [place] Sep, [address] Sep, [address] Aug, [address] Jul, [address] [facility] [address] [place] [address] Jul, [place] [address] [facility] [address] [place], [place] Jul, Dental [address] Jul, [address] [facility] [address] [place] May, [address] Apr, [address] [facility] [address] [facility] Apr, [place] [address] Mar, [address] IMMUNIZATIONS No Known Immunizations SOCIAL HISTORY Never Assessed REASON FOR REFERRAL FUNCTIONAL STATUS PLAN OF CARE VITAL SIGNS MEDICATIONS Unknown Medications PROCEDURES No Known procedures RESULTS No Results REASON FOR VISIT Update [employer] Insurance Providers [facility] Health Member Patient Patient Patient Patient Patient Subscriber Subscriber Subscriber Group Insurance Plan Plan Plan Plan ID Relationship Address Phone Name Date of ID Name Date of No Type Insurance Insurance Insurance Coverage to Subscriber Address Phone Name Dates Aetna [phone] Aetna self Karla [id number] Medicare [id number] Medicare [place] Adv P[place] Adv PPO [id number] [employer] [phone] [employer] self Karla [id number] [phone] Emily Cisneros ULTC [employer]plex MLTC Claims Hplex MLTC Dept [facility] [id number] Medicaid [id number] Medicaid self Karla [id number] [facility] [address] [place] [id number] MEDICAL (GENERAL) HISTORY Type Description Date Medical History depression Medical History bipolar Medical History Seizures Medical History acid reflux Medical History multiple sclerosis
--- OUTSIDE RECORDS SUMMARY | 2019-05-25 11:58 | XMS REPORT | Summary of Care ---
:1970 Author Organization [facility] Address [address] [address] Care Team Providers Name Role Phone Chiki Chandler Primary Care Provider Edward Wooten Unavailable Debbie Mendosa RN Unavailable Reason for Referral Medication Prior Authorization (Routine) Status Reason Specialty Diagnoses / Procedures Referred By Contact Referred To Contact Chiki Garsia MD [address] [place] [address] Reason for Visit Reason Comments Check Up discuss dysuria, and has an area/spot on her More R but slightly L thigh/buttocks. Encounter Details Date Type Department Care Team Description 05/06/2019 Office Visit [facility] Chiki Chandler, Decubitus ulcer of sacral region, stage 2 (HCC) (Primary Dx); Medicine Midline low back pain without sciatica, unspecified chronicity; [address] [facility] Chronic pain syndrome; [place], [place] [id number] [place] [address] Wheelchair bound; [phone] Acquired hypothyroidism; Urge incontinence; Multiple sclerosis, primary progressive (HCC) Allergies Active Allergy Reactions Severity Noted Date Comments Aspirin GI Reaction Medium 11/20/2004 Codeine Other Low 01/25/2018 . Erythromycin GI Reaction Medium 05/11/2017 Lidocaine Other 11/30/2017 ineffective Penicillins GI Reaction, Unknown Reaction Low 11/20/2004 . Sulfa Antibiotics Swelling, Unknown Reaction Low 11/20/2004 . documented as of this encounter (statuses as of 05/06/2019) Medications Medication Sig Dispensed Refills Start Date End Date Status amantadine Take 100 mg 0 Active (SYMMETREL) 100 MG by mouth Oral Cap TWICE DAILY. levothyroxine Take 1 Tab 90 Tab 3 11/27/2017 Active (SYNTHROID) 75 MCG by mouth Oral Tab BEFORE BREAKFAST. Brexpiprazole Take 1 Tab 30 Tab 0 01/01/2018 Active (REXULTI) 1 MG Oral by mouth TabIndications: DAILY. Moderate episode of recurrent major depressive disorder (HCC) oxybutynin Take 1 Tab 90 Tab 3 04/06/2018 Active (DITROPAN) 5 MG by mouth Oral Tab DIRECTED. Take one in am and 2 in pm Mirabegron ER Take 1 Tab 30 Tab 0 09/22/2018 Active (MYRBETRIQ) 50 MG by mouth Oral TABLET SR 24 EVERY HR MORNING. VIIBRYD 40 MG Oral Take 40 mg 30 Tab 0 10/07/2018 Active Tab by mouth DAILY. carbamazepine TAKE 1 30 Tab 11 11/30/2018 Active (TEGRETOL XR) 100 TABLET BY MG Oral TABLET SR MOUTH EVERY 12 HR DAY diazepam (VALIUM) 5 Take 1 Tab 60 Tab 0 04/11/2019 Active MG Oral Tab by mouth TWO TIMES DAILY NEEDED (spasm). Max Daily Amount: 10 mg. lithium 300 MG Oral Take 900 mg 90 Cap 3 04/11/2019 Active Cap by mouth EVERY BEDTIME. baclofen (LIORESAL) Take 1 Tab 90 Tab 0 04/11/2019 Active 20 MG Oral Tab by mouth TWICE DAILY. diphenoxylate-atrop Take 1 Tab 40 Tab 0 04/29/2019 Active ine (LOMOTIL) by mouth 2.5-0.025 MG Oral FOUR TIMES TabIndications: DAILY Chronic diarrhea NEEDED for diarrhea. Max Daily Amount: 4 Tabs. ondansetron Take 4 mg by 30 Tab 4 05/06/2019 Active (ZOFRAN) 4 MG Oral mouth EVERY Tab EIGHT HOURS NEEDED (nausea). morphine (ORAMORPH Take 1 Tab 30 Tab 0 05/06/2019 Active SR, MS CONTIN) 15 by mouth MG Oral Tab CR EVERY MORNING. Max Daily Amount: 15 mg. Oxycodone HCl 10 MG Take 2 Tabs 30 Tab 0 05/06/2019 Active Oral by mouth TabIndications: DAILY Midline low back NEEDED (back pain without pain). Max sciatica, Daily unspecified Amount: 20 chronicity mg. ondansetron Take 4 mg by 0 Discontinued (ZOFRAN) 4 MG Oral mouth EVERY 9 (Reorder) Tab EIGHT HOURS NEEDED for nausea. Oxycodone HCl 10 MG Take 2 Tabs 180 Tab 0 09/22/2018 Discontinued Oral by mouth 9 (Dose Adjustment) TabIndications: EVERY SIX Midline low back HOURS pain without NEEDED (back sciatica, pain). Max unspecified Daily chronicity Amount: 80 mg. morphine (MS Take 1 Tab 60 Tab 0 10/25/2018 Discontinued CONTIN) 30 MG Oral by mouth 9 (Provider Tab CR EVERY TWELVE Discontinued) HOURS. Max Daily Amount: 60 mg. Loperamide HCl Take 1 Tab 40 Tab 4 04/11/2019 Discontinued (LOPERAMIDE A-D) 2 by mouth 9 (Provider MG Oral Tab FOUR TIMES Discontinued) DAILY NEEDED (diarrhea). documented as of this encounter (statuses as of 05/06/2019) Active Problems Problem Noted Date Wheelchair bound 01/01/2018 Moderate episode of recurrent major depressive disorder 01/01/2018 History of deep vein thrombosis 01/01/2018 Overview: [facility] admission Jun 2017 Polymyositis 01/01/2018 History of pulmonary embolism 01/01/2018 Overview: [facility] admission 2018 Chronic pain syndrome 01/01/2018 Acquired hypothyroidism 04/09/2017 History of suicide attempt 12/09/2013 Overview: [facility] admission 11/2013 drug overdose and intubated [facility] and therapist weekly PTSD (post-traumatic stress disorder) 12/01/2012 Overview: Sees counselor regularly. 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 07/27/2017 10/25/2018 Overview: 7/31/18 Dr Soriano d/c'd Warfarin therapy Tele manage visits approved by PCP/susie 01/07/18-form signed and sent to scanning Managed by: [facility] Referring Provider: Bryan Indication: DVT/PE Target Range: 2.0-3.5-per encounter from Dr Chandler on 07/24/17 Duration: Not indicated Additional factors influencing anticoagulation: Likely provoked after breast reduction surgery Omeprazole increases warfarin effect Methylphenidate increases warfarin effect Levothyroxine increases warfarin effect Initial Referral: 07/24/17 Initial [facility] Orders: 07/24/17 Acute deep vein thrombosis (DVT) of right lower extremity, 07/24/20172017 unspecified vein DVT (deep venous thrombosis) 06/27/2017 01/01/2018 Patellofemoral stress syndrome of left knee 10/14/2016 01/01/2018 Left knee pain 09/30/2016 05/11/2017 Leg weakness, bilateral 01/11/2013 07/08/2013 DEPRESSION 03/08/2009 01/01/2018 Overview: History of [facility] admission 05/2011 suicidal ideation [facility] Dr Karen [place] concerta prescription Dr Jones fall 2013 Migraine 03/30/2008 05/11/2017 History of alcohol abuse 03/30/2008 01/01/2018 Overview: Sober since . Relapse summer Attends AA 09 5-6 days weekly GERD (gastroesophageal reflux disease) 03/30/2008 10/06/2012 documented as of this encounter (statuses as of 05/06/2019) Immunizations Name Administration Dates Next Due Depo Medrol (40mg) 09/20/2014 Influenza (IM) Preservative Free 03/24/2017, 04/02/2016, 04/27/2015, 04/18/2013 Influenza (IM) W/Pres 04/12/2014 PNEUMOCOCCAL POLYSACCHARIDE VACCINE 01/29/2017 Pneumococcal Conjugate Vaccine 02/22/2012 TDAP Vaccine 01/21/2008 documented as of this encounter Social History Tobacco Use Types Packs/Day Years Used Date Never Smoker Smokeless Tobacco: Never Used Alcohol Use Drinks/Week oz/Week Comments No 0 Standard drinks or equivalent 0.0 attents AA occassionally-had relapse 12/28 only one drink Financial Resource Strain Answer Date Recorded How hard is it for you to pay for the very basics like Somewhat hard 2018 food, housing, medical care, and heating? Food Insecurity Answer Date Recorded Within the past 12 months, you worried that your food Sometimes true 2018 would run out before you got money to buy more. Within the past 12 months, the food you bought just Sometimes true 04/15/2019 didn't last and you didn't have money to get more. Transportation Needs Answer Date Recorded In the past 12 months, has lack of transportation kept you from Yes 2018 medical appointments or from getting medications? In the past 12 months, has lack of transportation kept you from Yes 2018 meetings, work, or getting things needed for daily living? Sex Assigned at Date Recorded Not on file Job Start Date Occupation Industry Not on file Not on file Not on file Travel History Travel Start Travel End No recent travel history available. documented as of this encounter Last Filed Vital Signs Vital Sign Reading Time Taken Comments Blood Pressure 116/62 05/06/2019 11:01 AM EST Pulse 96 05/06/2019 11:01 AM EST Temperature - - Respiratory Rate - - Oxygen Saturation 94% 05/06/2019 11:01 AM EST Inhaled Oxygen Concentration - - Weight - - Height - - Body Mass Index - - documented in this encounter Patient Instructions Patient InstructionsChiki Chandler MD - 05/06/2019 11:00 AM ESTUse zofran in am when have nausea Wean down morphine use 30 mg in am for 2 weeks then reduce to 15 mg in am for one month New oxycodone prescription was sent in Use bacitracin antibiotic ointment and large band aid to right buttock ulcer once daily Follow up me 6 week pain medication tapering documented in this encounter Progress Notes Chiki Chandler MD - 05/06/2019 11:00 AM EST PATIENT: Karla Cisneros : 1970 DATE OF SERVICE: 05/06/2019 CHIEF COMPLAINT: Chief Complaint Patient presents with Check Up discuss dysuria, and has an area/spot on her More R but slightly L thigh/ buttocks. Subjective HISTORY OF PRESENT ILLNESS: Karla Cisneros is a 48-y.o. female. HPI Multiple issues 1. Chronic dysuria and history overactive bladder no blood in urine no fever or flank pain no other urinary tract infection symptoms she has multiple sclerosis and bladder dysfunction and is on ditropan and mirabegron this helps with leakage she does not self catheterize 2. 2-3 weeks bilateral Sacral sores right more than left she denies drainage she is wheelchair bound and sleeps on her side 3. Intermittent nausea and vomitting 2-3 times per week usually first thing in am no other gastro-intestinal symptoms no fevers she does not feel this is medication related denies gastroesophageal reflux disease or abdomen pain She has some loose stools no blood or melena she uses as needed lomotil about twice weekly no recentchange in diet Wt Readings from Last 3 Encounters: 02/07/19 135 lb (61.2 kg) 10/25/18 145 lb (65.8 kg) 03/11/18 174 lb (78.9 kg) she is not weighed today 4. She feels her low back pain is now much better and she wants to wean down narcotic medication doses She uses ms contin 30 mg twice daily And oxycodone 10 mg as needed about twice weekly her low back pain is now 2/10 The patient denies drug abuse or diversion Patient Active Problem List Diagnosis Multiple sclerosis, primary progressive (HCC) Seasonal allergic rhinitis Mild intermittent asthma PTSD (post-traumatic stress disorder) Urge incontinence History of suicide attempt Acquired hypothyroidism Wheelchair bound Moderate episode of recurrent major depressive disorder (HCC) History of deep vein thrombosis Polymyositis (HCC) History of pulmonary embolism Chronic pain syndrome Family History Problem Relation Age of Onset Diabetes Mother Hypertension Mother Seizures Mother High Cholesterol Father Heart Disease Father Kidney Brother Alcohol/Drug Brother Diabetes Maternal Grandfather Cancer Paternal Grandmother 40 breast Breast Cancer Paternal Grandmother 40s Cancer Paternal Grandfather No Known Problems Son Breast Cancer Paternal Aunt Breast Cancer Paternal Aunt Breast Cancer Paternal Aunt Breast Cancer Other Current Outpatient Medications Medication Sig amantadine (SYMMETREL) 100 MG Oral Cap Take 100 mg by mouth TWICE DAILY. baclofen (LIORESAL) 20 MG Oral Tab Take 1 Tab by mouth TWICE DAILY. Brexpiprazole (REXULTI) 1 MG Oral Tab Take 1 Tab by mouth DAILY. carbamazepine (TEGRETOL XR) 100 MG Oral TABLET SR 12 HR TAKE 1 TABLET BY MOUTH EVERY DAY diazepam (VALIUM) 5 MG Oral Tab Take 1 Tab by mouth TWO TIMES DAILY NEEDED (spasm). Max Daily Amount: 10 mg. diphenoxylate-atropine (LOMOTIL) 2.5-0.025 MG Oral Tab Take 1 Tab by mouth FOUR TIMES DAILY NEEDED for diarrhea. Max Daily Amount: 4 Tabs. levothyroxine (SYNTHROID) 75 MCG Oral Tab Take 1 Tab by mouth BEFORE BREAKFAST. lithium 300 MG Oral Cap Take 900 mg by mouth EVERY BEDTIME. Mirabegron ER (MYRBETRIQ) 50 MG Oral TABLET SR 24 HR Take 1 Tab by mouth EVERY MORNING. morphine (ORAMORPH SR, MS CONTIN) 15 MG Oral Tab CR Take 1 Tab by mouth EVERY MORNING. Max Daily Amount: 15 mg. ondansetron (ZOFRAN) 4 MG Oral Tab Take 4 mg by mouth EVERY EIGHT HOURS NEEDED (nausea). oxybutynin (DITROPAN) 5 MG Oral Tab Take 1 Tab by mouth DIRECTED. Take one in am and 2 in pm Oxycodone HCl 10 MG Oral Tab Take 2 Tabs by mouth DAILY NEEDED (back pain). Max Daily Amount: 20 mg. VIIBRYD 40 MG Oral Tab Take 40 mg by mouth DAILY. No current facility-administered medications for this visit. Allergies Allergen Reactions Aspirin GI Reaction Erythromycin GI Reaction Lidocaine Other ineffective Codeine Other . Penicillins GI Reaction and Unknown Reaction . Sulfa Antibiotics Swelling and Unknown Reaction . Social History Socioeconomic History Marital status: Spouse name: Not on file Number of children: Not on file Years of education: Not on file Highest education level: Not on file Occupational History Employer: DISABLED Social Needs Financial resource strain: Somewhat hard Food insecurity: Worry: Sometimes true Inability: Sometimes true Transportation needs: Medical: Yes Non-medical: Yes Tobacco Use Smoking status: Never Smoker Smokeless tobacco: Never Used Substance and Sexual Activity Alcohol use: No Alcohol/week: 0.0 standard drinks Comment: attenangela BUI occassionally-had relapse 12/28 only one drink Drug use: No Sexual activity: Never Lifestyle Physical activity: Days per week: Not on file Minutes per session: Not on file Stress: Not on file Relationships Social connections: Talks on phone: Not on file Gets together: Not on file Attends sabianism service: Not on file Active member of club or organization: Not on file Attends meetings of clubs or organizations: Not on file Relationship status: Not on file Intimate partner violence: Fear of current or ex partner: Not on file Emotionally abused: Not on file Physically abused: Not on file Forced sexual activity: Not on file Other Topics Concern Back Care No Bike Helmet No Blood Transfusions No Caffeine Concern No Exercise No Hobby Hazards No International Travel No Service No Occupational Exposure No Seat Belt No Self-Exams No Sleep Concern No Special Diet No Stress Concern No Weight Concern No Social History Narrative Lives alone, has an 11 year old son she is fighting for custody for Lesbian, and lives in [facility]. Works at [employer] in [employer]. Over the last 2 weeks, have you been feeling down, depressed, anxious, or hopeless?: 1 Over the past 2 weeks, have you felt little interest or pleasure in doing things ?: 0 ROS rest of skin negative No pulmonary or cardiovascular symptoms Denies depression symptoms All rest of the 12 item ROS is negative. Objective PHYSICAL EXAM: VITALS: BP 116/62 (BP Location: Right arm, Patient Position: Sitting) | Pulse 96 | LMP 11/04/2012 | SpO2 94% There is no height or weight on file to calculate BMI. Physical Exam The abdomen is soft without tenderness, guarding, mass, rebound or organomegaly. Bowel sounds are normal. No CVA tenderness or inguinal adenopathy noted. S1 and S2 normal, no murmurs, clicks, gallopsor rubs. Regular rate and rhythm. Chest is clear; no wheezes or rales. No edema or JVD. Mental status exam ; she is alert, orient to time, person and place. Normal thought content, speech , affect, mood and dress are noted. The patient's pain level on a 0-10 visual analog pain scale is 2/10. Left sacrum intact skin right ischial decub ulcer stage 2 1x2 cm no exufate eschar or surrounding erythema ASSESSMENT / IMPRESSION: ICD-9-CM ICD-10-CM 1. Decubitus ulcer of sacral region, stage 2 (HCC) avoid prolonged sitting get eggshell foam crate for chair and wheelchair cover right ischial ulcer with bacitracin and band aid sleep on her side 707.03 L89.152 707.22 2. Midline low back pain without sciatica, unspecified chronicity wean down ms contin use 30 mg pills she has at home once daily two weeks then reduce to 15 mg once daily one month follow up 6 weeks and then we will consider stop ms contin use [as needed oxycodone 10 mg The [facility] I-STOP website/database was accessed and there are no apparent issues with abuse or diversion. 724.2 M54.5 Oxycodone HCl 10 MG Oral Tab 3. Chronic pain syndrome 338.4 G89.4 4. Wheelchair bound V46.3 Z99.3 5. Acquired hypothyroidism continue current medications 244.9 E03.9 6. Urge incontinence check urine culture today 788.31 N39.41 URINE CULTURE (C& amp;S) URINE CULTURE (C&S) URINE DIP MANUAL (AMB POCT) 7. Multiple sclerosis, primary progressive (HCC) 340 G35 Patient Instructions Use zofran in am when have nausea Wean down morphine use 30 mg in am for 2 weeks then reduce to 15 mg in am for one month New oxycodone prescription was sent in Use bacitracin antibiotic ointment and large band aid to right buttock ulcer once daily Follow up [place] 6 week pain medication tapering Chiki Chandler MD 05/06/2019 12:59 documented in this encounter Plan of Treatment Date Type Specialty Care Team Description 05/13/2019 Nurse/Clinical Support Internal Medicine 05/23/2019 Office Visit Gastroenterology Jessica Moore, [employer] [address] [place] [address] [phone] 06/16/2019 Office Visit Internal Medicine Chiki Chandler MD [address] [place] [address] [phone] Name Type Priority Associated Diagnoses Date/Time URINE CULTURE (C&S) Lab Routine Urge incontinence 05/06/2019 11:42 AM EST Name Type Priority Associated Diagnoses Order Schedule URINE CULTURE (C&S) Lab Routine Urge incontinence Expected: 05/06/2019 (Approximate), Expires: 05/20/2019 Health Maintenance Due Date Last Done Comments PAP SMEAR 12/13/2018 12/14/2015, 12/14/2015, 12/14/2015, Additional history exists MEDICARE ANNUAL WELLNESS 02/01/2019 02/01/2018, 01/29/2017 VISIT INFLUENZA VACCINE (#1) 2019 03/24/2017, 04/02/2016, 04/27/2015, Additional history exists MAMMOGRAM (SCREENING) 03/04/2020 03/04/2019, 02/07/2019, 01/21/2018, Additional history exists DEPRESSION SCREENING 05/06/2020 05/06/2019, 02/01/2018 LIPID DISORDER SCREENING 07/13/2020 07/13/2015, 11/11/2012 PNEUMOCOCCAL 0-64 YRS Completed 01/29/2017, 02/22/2012 HPV IMMUNIZATION SERIES Aged Out No longer eligible based on patient's age to complete this topic MENINGOCOCCAL VACCINE IMM Aged Out No longer eligible based on patient's age to complete this topic documented as of this encounter Goals Goal Patient Goal Associated Recent Patient-Stated? Author Type Problems Progress Depression Depression 15 No natalie Gore (PHQ-9) (02/01/2018 BO Parker total score < 5 9:15 AM EDT) Note: This is an individualized treatment (depression) goal for Karla Cisneros: Displayed above is your goal for a depression screening (PHQ-9) score that would indicate good control of your depression. Keep a regular sleep schedule Lifestyle No Elena Gore FNP Note: This is an individualized lifestyle goal for Karla Cisneros: Please maintain a regular sleep schedule. This may help with some symptoms of depression. Take all prescribed medications as Self-management No Elena Gore FNP directed Note: This is an individualized self-management goal for Karla Cisneros: Please take all prescribed medications as directed. 1. Do not skip doses. If you cannot afford your medications, talk with your doctor. 2. Use a pill reminder system such as a pill box if needed. Your pharmacist can help you with this. 3. Contact your Pharmacy 5 days before your medication runs out. If you cannot take your medications for any reasons, talk with your doctor. 4. Please bring all of your medication bottles and inhalers (or a list of all your medications/inhalers) with you to every visit. Potential barriers to meeting all of your care plan goals will continue to be addressed on an ongoing basis. documented as of this encounter Procedures Procedure Name Priority Date/Time Associated Diagnosis Comments URINE DIP MANUAL Routine 05/06/2019 11:47 Urge incontinence Results for this (AMB POCT) AM EST procedure are in the results section. documented in this encounter Results URINE DIP MANUAL (AMB POCT) (05/06/2019 11:47 AM EST) URINE GLUCOSE (POCT) Negative Negative mg/dl [facility] POCT URINE BILIRUBIN Negative Negative [facility] (POCT) POCT Urine Ketones (POCT) Negative Negative [facility] POCT URINE SPECIFIC 1.010 1.005 - 1.030 [facility] GRAVITY (POCT) POCT URINE BLOOD (POCT) Negative Negative [facility] POCT URINE PH (POCT) 6.0 5.0 - 8.0 [facility] POCT URINE PROTEIN (POCT) Negative Negative mg/dl [facility] POCT URINE UROBILINOGEN 0.2 0.2 - 1.0 mg/dl [facility] (POCT) POCT URINE NITRITES Negative Negative [facility] (POCT) POCT URINE LEUKOCYTES Moderate (A) Negative [facility] (POCT) Cells/uL POCT Specimen Urine - Urine specimen (specimen) Performing Organization Address City/State/Zipcode Phone Number [facility] [address] [place] [address] documented in this encounter Visit Diagnoses Diagnosis Decubitus ulcer of sacral region, stage 2 (HCC) - Primary Pressure ulcer, lower back Midline low back pain without sciatica, unspecified chronicity Chronic pain syndrome Wheelchair bound Wheelchair dependence Acquired hypothyroidism Unspecified hypothyroidism Urge incontinence Multiple sclerosis, primary progressive (HCC) Multiple sclerosis documented in this encounter Insurance Payer Benefit Plan / Subscriber ID Effective Dates Phone Address Type Group AETNA MEDICARE AETNA MEDICARE xxxxxxxx 2018-Present [employer] ADVANTAGE ADVANTAGE documented as of this encounter Advance Directives Type Date Recorded Patient 

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
--- OUTSIDE RECORDS SUMMARY | 2019-05-25 11:58 | XMS REPORT ---
:1970 Author Organization [facility] Health Care Team Providers Name Role Phone Michael Dooley Unavailable Unavailable PROBLEMS Unknown Problems ALLERGIES No Information ENCOUNTERS Encounter Location Date Diagnosis [address], [place], [address] Apr, [address] Apr, [address] October, [address] Sep, [address] Sep, [address] Aug, [address] Jul, [address] Jul, [place] [address] [facility] [address] [place], [place] Jul, [place] [address] Jul, [address] [facility] [address] [place] May, [address] Apr, [address] [facility] [address] [place] [address] Apr, [place] [address] Mar, [address] IMMUNIZATIONS No Known Immunizations SOCIAL HISTORY Never Assessed REASON FOR REFERRAL FUNCTIONAL STATUS PLAN OF CARE VITAL SIGNS MEDICATIONS Unknown Medications PROCEDURES Procedure Date Ordered Result Body Site Follow Up Contract Procedure May 16, 2019 PERIODIC ORAL EXAMINATION May 16, 2019 RESULTS No Results REASON FOR VISIT r/s Insurance Providers [facility] Patient Patient Patient Patient Patient Subscriber Subscriber Subscriber Group Insurance Plan Plan Plan Plan ID Relationship Address Phone Name Date of ID Name Date of No Type Insurance Insurance Insurance Coverage to Subscriber Address Phone Name Dates Aetna [phone] Aetna self Karla [id number] Medicare [id number] Medicare [place] Adv [place] Adv PPO [address] iCircle [phone] iCircle self Karla [id number] [id number] [place] [id number] Emily Cisneros ULTC Hplex MLTC Claims Hplex MLTC Dept [facility] [id number] Medicaid [id number] [phone] Medicaid self Karla [id number] [facility] [address] [place] [address] MEDICAL (GENERAL) HISTORY Type Description Date Medical History depression Medical History bipolar Medical History Seizures Medical History acid reflux Medical History multiple sclerosis
--- OUTSIDE RECORDS SUMMARY | 2019-05-25 11:58 | XMS REPORT | Continuity of Care Document ---
:1970 External Reference #:[id number] Author Name Bello Rick N.P. (transmitted by agent of provider Aleida Capps) Address [address] [facility], [place] [address] Care Team Providers Name Role Phone Chiki Chandler MD - Internal Care Team Information Deputy Controller [phone] Medicine Problems Active Problems Provider Date Multiple sclerosis Shelley Barahona M.D. Onset: 11/30/2014 Depressive disorder Shelley Barahona M.D. Onset: 11/30/2014 Other sleep disorders Jennifer Soto MD Onset: 02/12/2017 Obstructive sleep apnea syndrome Thalia Cisneros DNP, RN, BRIM GREASER OPERATOR- Onset: Hypersomnia Thalia Cisneros DNP, RN, BRIM GREASER OPERATOR-BC Onset: 09/04/2017 Taking medication Tim Lara M.D. Onset: 11/26/2017 Low back pain Tim Lara M.D. Onset: 01/14/2018 Abnormal gait Tim Lara M.D. Onset: 01/14/2018 Increased frequency of urination Tim Lara M.D. Onset: 05/07/2018 Seizure Tim Lara M.D. Onset: 08/10/2018 Malaise and fatigue Tim Lara M.D. Onset: 08/10/2018 History of thromboembolism of vein Tim Lara M.D. Onset: 08/10/2018 Amnesia Tim Lara M.D. Onset: 09/30/2018 Social History Type Date Description Comments Sex Unknown Tobacco Use Start: Unknown Never Smoked Cigarettes Smoking Status Reviewed: 04/07/19 Never Smoked Cigarettes ETOH Use Denies alcohol use Tobacco Use Start: Unknown Patient has never smoked Recreational Drug Use Denies Drug Use Exercise Type/Frequency Does not exercise Allergies, Adverse Reactions, Alerts Active Allergies Reaction Severity Comments Date Penicillin Nausea and Vomiting 11/23/2012 Codeine 11/23/2012 Sulfa Antibiotics 11/23/2012 Aspirin 11/06/2016 Interferon Beta-1B suicidal 02/12/2017 Medications Active Medications SIG Qnty Indications Ordering Provider Date Wheelchair OT-PT Wheelchair 1unannette Tim Lara, 05/10/2018 [facility] M.D. evaluation Baclofen take 1.5 tabs 90tabs Tim Lara, 03/08/2018 10mg Tablets twice a day M.D. Hospital Bed [facility], 01/14/2018 [facility] [place] bed, M.D. with half rails and overhead trapeze for limited mobility.. Dx MS.. Amantadine HCL 1 by mouth twice 60tabs Tim Lara, 12/12/2013 100mg daily M.D. Tablets Morphine Sulfate ER 30mg every 12 Unknown 30mg hours for pain by Caps ER 24HR mouth Stool Softener 2 by mouth daily Unknown 100mg prn Capsules Linzess 1 by mouth every Unknown 290mcg Capsules day Compazine 5 MG 1 tab by mouth as Unknown needed for nausea Myrbetriq 1 by mouth every Unknown 50mg Tablets ER day 24HR [place] Carbonate ER 2 tabs by mouth Unknown at bedtime 450mg Tablets ER Linaclotide 290 mcg 1 tab by mouth Unknown daily Levothyroxine Sodium 1 by mouth every Unknown day 50mcg Tablets Carbamazepine take 1 tablet by Unknown 200mg mouth twice daily Tablets Rexulti Take 1 Tablet By Unknown 1mg Tablets Mouth Every Day Oxycodone HCL 1 pill by mouth 60tabs Tim Lara, 10mg every 12 hours M.D. Tablets prn pain Klor-Con 10 1 by mouth every 90tabs Unknown 10Meq Tablets day ER Omeprazole 1 by mouth every Unknown 20mg Tablets day DR Methylphenidate HCL ER 1 tab po daily Unknown 36mg Tablets ER Viibryd 1 by mouth every 30tabs Unknown 40mg Tablets day Immunizations Description No Information Available Vital Signs Date Vital Result Comment 04/07/2019 3:11pm Height 65.5 inches 5'5.50" Weight 140.00 lb Heart Rate 81 /min BMI (Body Mass Index) 22.9 kg/m2 10/18/2018 10:26am Height 65.5 inches 5'5.50" Weight 140.00 lb Heart Rate 82 /min BP Systolic 102 mmHg BP Diastolic 78 mmHg BMI (Body Mass Index) 22.9 kg/m2 Results Description No Information Available Procedures Date Code Description Status 11/04/2018 56415 EKG, Interpretation Only Completed Medical Devices Description No Information Available Encounters Type Date Location Provider Dx Diagnosis Office Visit 03/25/2019 [facility] Dermatology Rich Teran MD D22.5 Melanocytic nevi of 10:10a trunk L91.8 Other hypertrophic disorders of the skin L82.1 Other seborrheic keratosis [facility] R53.1 [facility] Hospitalists D51.9 Vitamin B12 deficiency anemia, unspecified R94.6 Abnormal results of thyroid function studies E83.51 Hypocalcemia E87.6 Hypokalemia G35 Multiple sclerosis J45.909 Unspecified asthma, uncomplicated H46.9 Unspecified optic neuritis G43.909 Migraine, unsp, not intractable, without status migrainosus M60.9 Myositis, unspecified Office Visit 11/04/2018 [facility] R53.1 [facility]oc,[facility] Hospitalists E87.8 Oth disorders of electrolyte and fluid balance, NEC R94.6 Abnormal results of thyroid function studies D51.9 Vitamin B12 deficiency anemia, unspecified G35 Multiple sclerosis Office Visit 11/03/2018 7:00a [facility] Breann Gonzalez, G35 Multiple MD sclerosis E53.8 Deficiency of other specified B group vitamins Office Visit 11/03/2018 [facility], R53.1 Weakness [facility]oc,[facility] Hospitalists R94.6 Abnormal results of thyroid function studies D51.9 Vitamin B12 deficiency anemia, unspecified G35 Multiple sclerosis Office Visit 11/02/2018 7:00a [facility] Breann Gonzalez, G35 Multiple MD sclerosis E53.8 Deficiency of other specified B group vitamins Office Visit 11/01/2018 11:16a [facility] Дмитрий Rutledge MD R53.1 Weakness Hospitalists R06.02 Shortness of breath G89.4 Chronic pain syndrome M54.5 Low back pain R35.0 Frequency of micturition Office Visit 10/18/2018 10:30a [facility] Bello Rick, G35 [facility] N.P. sclerosis R56.9 Unspecified convulsions G47.33 Obstructive sleep apnea (adult) (pediatric) R41.2 Retrograde amnesia R53.1 Weakness Assessments Date Code Description Provider 04/07/2019 G35 Multiple sclerosis Bello Rick, N.P. 04/07/2019 J45.909 Unspecified asthma, uncomplicated Bello Rick, N.P. 04/07/2019 R41.2 Retrograde amnesia Bello Rick, N.P. 04/07/2019 R56.9 Unspecified convulsions Bello Rick, N.P. 04/07/2019 R35.0 Frequency of micturition Bello Rick, N.P. 04/07/2019 G47.33 Obstructive sleep apnea (adult) Bello Rick, N.P. (pediatric) 03/25/2019 D22.5 Melanocytic nevi of trunk Rich Teran MD 03/25/2019 L91.8 Other hypertrophic disorders of the Rich Teran MD skin 03/25/2019 L82.1 Other seborrheic keratosis Rich Teran MD 11/05/2018 R53.1 Weakness [place] 11/05/2018 D51.9 Vitamin B12 deficiency anemia, [place] unspecified 11/05/2018 R94.6 Abnormal results of thyroid function [place]I [place] studies 11/05/2018 E83.51 Hypocalcemia LALI [place]lam[place] 11/05/2018 E87.6 Hypokalemia LALI [place] 11/05/2018 G35 Multiple sclerosis LALI [place] 11/05/2018 J45.909 Unspecified asthma, uncomplicated LALI [place] 11/05/2018 H46.9 Unspecified optic neuritis LALI [place] 11/05/2018 G43.909 Migraine, unsp, not intractable, [place] without status migrainosus 11/05/2018 M60.9 Myositis, unspecified [place] 11/04/2018 R94.31 Abnormal electrocardiogram [ECG] [EKG] Gayatri Mckinney M.D. 11/04/2018 R53.1 Weakness [place] 11/04/2018 E87.8 Oth disorders of electrolyte and fluid [place] balance, NEC 11/04/2018 R94.6 Abnormal results of thyroid function L[place]I [place] studies 11/04/2018 D51.9 Vitamin B12 deficiency anemia, [place] unspecified 11/04/2018 G35 Multiple sclerosis [place] 11/03/2018 G35 Multiple sclerosis Breann Gonzalez MD 11/03/2018 R53.1 Weakness [place] 11/03/2018 E53.8 Deficiency of other specified B group Breann Gonzalez MD vitamins 11/03/2018 R94.6 Abnormal results of thyroid function [place] studies 11/03/2018 D51.9 Vitamin B12 deficiency anemia, [place] unspecified 11/03/2018 G35 Multiple sclerosis [place] 11/02/2018 G35 Multiple sclerosis Breann Gonzalez MD 11/02/2018 R53.1 Weakness [place] 11/02/2018 E53.8 Deficiency of other specified B group Breann Gonzalez MD vitamins 11/02/2018 R94.6 Abnormal results of thyroid function [place] studies 11/02/2018 D51.9 Vitamin B12 deficiency anemia, [place] unspecified 11/02/2018 G35 Multiple sclerosis [place] 11/01/2018 R53.1 Weakness Дмитрий Rutledge MD 11/01/2018 R06.02 Shortness of breath Дмитрий Rutledge MD 11/01/2018 G89.4 Chronic pain syndrome Дмитрий Rutledge MD 11/01/2018 M54.5 Low back pain Дмитрий Rutledge MD 11/01/2018 R35.0 Frequency of micturition Дмитрий Rutledge MD 10/18/2018 G35 Multiple sclerosis Bello Rick N.P. 10/18/2018 R56.9 Unspecified convulsions Daja Mendez.P. 10/18/2018 G47.33 Obstructive sleep apnea (adult) Daja Mendez.Kayden (pediatric) 10/18/2018 R41.2 Retrograde amnesia Bello Rick N.PGlo 10/18/2018 R53.1 Weakness Daja Mendez.Colten. Plan of Treatment Future Appointment(s):07/21/2019 2:45 pm - Tim Lara M.D. at [facility]04/07/2019 - Bello Rick N.P.G35 Multiple sclerosisNew Therapy:Physical TherapyRecommendations:We need to find an developer designer that takes your insurance to examine your maculae please call me with a accepting provider I will make the gdneeumpV82.909 Unspecified asthma , qbihqtevxowkbN61.2 Retrograde fbpoqrpW22.9 Unspecified convulsionsNew Orders: EEG, 72 Hour Ambulatory, Ordered: 04/07/19R35.0 Frequency of rzckwxfkkzwR67.33 Obstructive sleep apnea (adult) (pediatric)Referral:Jennifer Soto MD, Pulmonary DiseasesFollow up:[address] Lara Functional Status Description No Information Available Mental Status Description No Information Available Referrals Refer to Dr Reason for Referral Status Appt Date Jennifer Soto MD Created [address] [place] [address] [address] [place] [phone]
--- OUTSIDE RECORDS SUMMARY | 2019-05-25 11:58 | XMS REPORT ---
:1970 Author Organization [facility] Health Care Team Providers Name Role Phone Sandy Ruiz Unavailable Unavailable PROBLEMS Unknown Problems ALLERGIES Substance Reaction Event Type Date Status Sulfa Unknown Drug Allergy Apr, Active ENCOUNTERS Encounter Location Date Diagnosis [address], [place] Apr, [address] Apr, [address] Apr, [address] October, [address], [place] Sep, [address] Sep, [address] Aug, [address] Jul, [address] [facility] [address] [place] [address] Jul, [place] [address] [facility] [address] [place], [place] Jul, Dental [address] Jul, [address] [facility] [address] [place], [place] May, [address] Apr, [address] [facility] [address] [facility] Apr, [place] [address] [id number] [place], [place] Mar, [address] IMMUNIZATIONS No Known Immunizations SOCIAL HISTORY Never Assessed REASON FOR REFERRAL FUNCTIONAL STATUS PLAN OF CARE VITAL SIGNS MEDICATIONS Unknown Medications PROCEDURES Procedure Date Ordered Result Body Site Caries Risk Assess and Doc Medium Risk May 16, 2019 PROPHYLAXIS - ADULT 13yrs and older May 16, 2019 RESULTS No Results REASON FOR VISIT r/s, cleaning Insurance Providers [facility] Member Patient Patient Patient Patient Patient Subscriber Subscriber Subscriber Group Insurance Plan Plan Plan Plan ID Relationship Address Phone Name Date of ID Name Date of No Type Insurance Insurance Insurance Coverage to Subscriber Address Phone Name Dates iCircle [phone] iCircle self Karla [id number] [phone] [place] [phone] [place] UL [employer] Claims [employer] Dept [place] [facility] [id number] Medicaid [id number] [phone] Medicaid self Karla [id number] [facility] [address] [address] Aetna [phone] Aetna self Karla [id number] Medicare [id number] Medicare [place] Adv PPO [place]KE Adv PPO [id number] MEDICAL (GENERAL) HISTORY Type Description Date Medical History depression Medical History bipolar Medical History Seizures Medical History acid reflux Medical History multiple sclerosis
--- OUTSIDE RECORDS SUMMARY | 2019-05-25 11:58 | XMS REPORT | Summary of Care ---
:1970 Author Organization [facility] Address [address] [place] [address] Care Team Providers Name Role Phone Chiki Chandler Primary Care Provider Edward Wooten Unavailable Reason for Visit Reason Comments Transitional Care Management Patient was discharged from [facility] on 04/06/2019 for diarrhea and hypokalemia. Encounter Details Date Type Department Care Team Description 04/11/2019 Office Visit [facility] Chiki Chandler, Chronic diarrhea (Primary Dx); Medicine Hypokalemia; [address] Chronic pain syndrome; [place] [id number] [place] [phone] Multiple sclerosis, primary progressive (HCC); [phone] Acquired hypothyroidism; Wheelchair bound; Moderate episode of recurrent major depressive disorder (HCC); Polypharmacy; Medication monitoring encounter Allergies Active Allergy Reactions Severity Noted Date Comments Aspirin GI Reaction Medium 11/20/2004 Codeine Other Low 01/25/2018 . Erythromycin GI Reaction Medium 05/11/2017 Lidocaine Other 11/30/2017 ineffective Penicillins GI Reaction, Unknown Reaction Low 11/20/2004 . Sulfa Antibiotics Swelling, Unknown Reaction Low 11/20/2004 . documented as of this encounter (statuses as of 04/11/2019) Medications Medication Sig Dispensed Refills Start End Status Date Date amantadine (SYMMETREL) Take 100 mg by 0 Active 100 MG Oral Cap mouth TWICE DAILY. ondansetron (ZOFRAN) 4 Take 4 mg by 0 Active MG Oral Tab mouth EVERY EIGHT HOURS NEEDED for nausea. levothyroxine Take 1 Tab by 90 Tab 3 Active (SYNTHROID) 75 MCG mouth BEFORE 8 Oral Tab BREAKFAST. Brexpiprazole Take 1 Tab by 30 Tab 0 Active (REXULTI) 1 MG Oral mouth DAILY. 8 TabIndications: Moderate episode of recurrent major depressive disorder (HCC) oxybutynin (DITROPAN) Take 1 Tab by 90 Tab 3 Active 5 MG Oral Tab mouth 8 DIRECTED. Take one in am and 2 in pm Mirabegron ER Take 1 Tab by 30 Tab 0 Active (MYRBETRIQ) 50 MG Oral mouth EVERY 9 TABLET SR 24 HR MORNING. Oxycodone HCl 10 MG Take 2 Tabs by 180 Tab 0 Active Oral TabIndications: mouth EVERY 9 Midline low back pain SIX HOURS without sciatica, NEEDED (back unspecified chronicity pain). Max Daily Amount: 80 mg. VIIBRYD 40 MG Oral Tab Take 40 mg by 30 Tab 0 Active mouth DAILY. 9 morphine (MS CONTIN) Take 1 Tab by 60 Tab 0 Active 30 MG Oral Tab CR mouth EVERY 9 TWELVE HOURS. Max Daily Amount: 60 mg. carbamazepine TAKE 1 TABLET 30 Tab 11 Active (TEGRETOL XR) 100 MG BY MOUTH EVERY 9 Oral TABLET SR 12 HR DAY diazepam (VALIUM) 5 MG Take 1 Tab by 60 Tab 0 Active Oral Tab mouth TWO 9 TIMES DAILY NEEDED (spasm). Max Daily Amount: 10 mg. lithium 300 MG Oral Take 900 mg by 90 Cap 3 Active Cap mouth EVERY 9 BEDTIME. baclofen (LIORESAL) 20 Take 1 Tab by 90 Tab 0 Active MG Oral Tab mouth TWICE 9 DAILY. Loperamide HCl Take 1 Tab by 40 Tab 4 Active (LOPERAMIDE A-D) 2 MG mouth FOUR 9 Oral Tab TIMES DAILY NEEDED (diarrhea). meclizine (ANTIVERT) Take 1 Tab by 30 Tab 0 Discontinued 25 MG Oral Tab mouth THREE 8 019 (Provider TIMES DAILY Discontinued) NEEDED for dizziness/vert igo. hydroxychloroquine Take 2 Tabs by 60 Tab 5 Discontinued (PLAQUENIL) 200 MG mouth DAILY. 8 019 (Duplicate Oral TabIndications: Order) Polymyositis (HCC) albuterol HFA Take 2 Puffs 1 Inhaler 0 Discontinued (VENTOLIN) 108 (90 by inhalation 8 019 (Provider Base) MCG/ACT EVERY FOUR Discontinued) Inhalation Aero HOURS SolnIndications: Mild NEEDED intermittent asthma (asthma). without complication Acetaminophen 500 MG Take by 0 Discontinued Oral Cap mouth. 019 (Provider Discontinued) DOK 100 MG Oral TAKE 1 CAPSULE 60 Cap 5 Discontinued CapIndications: BY MOUTH TWO 8 019 (Provider Chronic constipation TIMES DAILY Discontinued) Omeprazole delayed rel TAKE 1 CAPSULE 30 Cap 5 Discontinued cap 20 MG Oral CAPSULE BY MOUTH EVERY 9 019 (Provider DELAYED DAY Discontinued) RELEASEIndications: Gastroesophageal reflux disease, esophagitis presence not specified carbamazepine Take 1 Tab by 30 Tab 11 Discontinued (TEGRETOL-XR) 100 MG mouth DAILY. 9 019 (Duplicate Oral TABLET SR 12 HR Order) diazepam (VALIUM) 5 MG Take 1 Tab by 60 Tab 0 Discontinued Oral Tab mouth TWICE 9 019 (Dose DAILY. Max Adjustment) Daily Amount: 10 mg. naproxen (NAPROSYN) Take 1 Tab by 60 Tab 5 Discontinued 500 MG Oral Tab mouth EVERY 9 019 (Provider BEDTIME. Discontinued) docusate sodium Take 1 Cap by 60 Cap 3 Discontinued (COLACE) 100 MG Oral mouth TWICE 9 019 (Provider Cap DAILY. Discontinued) bisacodyl (DULCOLAX) 5 Take 1 Tab by 60 Tab 5 Discontinued MG Oral Tab EC mouth TWO 9 019 (Provider TIMES DAILY Discontinued) NEEDED (constipation) . LINZESS 290 MCG Oral TAKE 1 CAPSULE 30 Cap 0 Discontinued Cap BY MOUTH EVERY 9 019 (Duplicate DAY Order) [place] Carbonate 600 Take 1 Cap by 0 Discontinued MG Oral Cap mouth EVERY 019 (Provider BEDTIME. Discontinued) lithium 300 MG Oral Take 300 mg by 0 Discontinued Cap mouth EVERY 019 (Dose BEDTIME. Adjustment) documented as of this encounter (statuses as of 04/11/2019) Active Problems Problem Noted Date Wheelchair bound 01/01/2018 Moderate episode of recurrent major depressive disorder 01/01/2018 History of deep vein thrombosis 01/01/2018 Overview: [facility] admission Jun 2017 Polymyositis 01/01/2018 History of pulmonary embolism 01/01/2018 Overview: [facility] admission 2018 Chronic pain syndrome 01/01/2018 Acquired hypothyroidism 04/09/2017 History of suicide attempt 12/09/2013 Overview: [facility] admission 11/2013 drug overdose and intubated Dr Jones [facility] and therapist weekly PTSD (post-traumatic stress disorder) 12/01/2012 Overview: Sees counselor regularly. 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 Relapse summer Attends AA 09 5-6 days weekly GERD (gastroesophageal reflux disease) 03/30/2008 10/06/2012 documented as of this encounter (statuses as of 04/11/2019) Immunizations Name Administration Dates Next Due Depo [...] AA occassionally-had relapse 12/28 only one drink Sex Assigned at Date Recorded Not on file Job Start Date Occupation Industry Not on file Not on file Not on file Travel History Travel Start Travel End No recent travel history available. documented as of this encounter Last Filed Vital Signs Vital Sign Reading Time Taken Comments Blood Pressure 124/70 04/11/2019 11:08 AM EDT Pulse 70 04/11/2019 11:08 AM EDT Temperature - - Respiratory Rate - - Oxygen Saturation - - Inhaled Oxygen Concentration - - Weight - - Height - - Body Mass Index - - documented in this encounter Patient Instructions Patient InstructionsChiki Chandler MD - 04/11/2019 11:00 AM EDTStop linzess Blood level today for lithium tegretol and potassium Level Use over the counter diarrhea medication called loperamide 2 mg 1-2 pills four times daily as needed, maximum daily dose is 8 pills. documented in this encounter Progress Notes Chiki Chandler MD - 04/11/2019 11:00 AM EDT TCM Statement. Review of the hospitalization: I am seeing for transition of care following hospitalization. The date of discharge was: 04/06/19 The discharge diagnosis was Chronic diarrhea and hypokalemia She was stopped off of several constipation medications and stool studies were negative she is now home and has home health aid She remains on Linzess which has been given to her for chronic constipation she has poor appetites and weight loss no nausea and vomitting or gastroesophageal reflux disease or abdomen pain no fevers No other new medications other than 7 days oral potassium Pill she is on last day Wt Readings from Last 3 Encounters: 02/07/19 135 lb (61.2 kg) 10/25/18 145 lb (65.8 kg) 03/11/18 174 lb (78.9 kg) Patient Active Problem List Diagnosis Multiple sclerosis, primary progressive (HCC) Seasonal allergic rhinitis Mild intermittent asthma PTSD (post-traumatic stress disorder) Urge incontinence History of suicide attempt Acquired hypothyroidism Wheelchair bound Moderate episode of recurrent major depressive disorder (HCC) History of deep vein thrombosis Polymyositis (HCC) History of pulmonary embolism Chronic pain syndrome Outpatient Medications Marked as Taking for the 04/11/19 encounter (Office Visit ) with Chiki Chandler MD Medication Sig Dispense Refill amantadine (SYMMETREL) 100 MG Oral Cap Take 100 mg by mouth TWICE DAILY. baclofen (LIORESAL) 20 MG Oral Tab Take 1 Tab by mouth TWICE DAILY. 90 Tab 0 Brexpiprazole (REXULTI) 1 MG Oral Tab Take 1 Tab by mouth DAILY. 30 Tab 0 carbamazepine (TEGRETOL XR) 100 MG Oral TABLET SR 12 HR TAKE 1 TABLET BY MOUTH EVERY DAY 30 Tab 11 diazepam (VALIUM) 5 MG Oral Tab Take 1 Tab by mouth TWO TIMES DAILY NEEDED (spasm). Max Daily Amount: 10 mg. 60 Tab 0 levothyroxine (SYNTHROID) 75 MCG Oral Tab Take 1 Tab by mouth BEFORE BREAKFAST. 90 Tab 3 lithium 300 MG Oral Cap Take 900 mg by mouth EVERY BEDTIME. 90 Cap 3 Loperamide HCl (LOPERAMIDE A-D) 2 MG Oral Tab Take 1 Tab by mouth FOUR TIMES DAILY NEEDED (diarrhea). 40 Tab 4 Mirabegron ER (MYRBETRIQ) 50 MG Oral TABLET SR 24 HR Take 1 Tab by mouth EVERY MORNING. 30 Tab 0 morphine (MS CONTIN) 30 MG Oral Tab CR Take 1 Tab by mouth EVERY TWELVE HOURS. Max Daily Amount: 60 mg. 60 Tab 0 ondansetron (ZOFRAN) 4 MG Oral Tab Take 4 mg by mouth EVERY EIGHT HOURS NEEDED for nausea. oxybutynin (DITROPAN) 5 MG Oral Tab Take 1 Tab by mouth DIRECTED. Take one in am and 2 in pm 90 Tab 3 Oxycodone HCl 10 MG Oral Tab Take 2 Tabs by mouth EVERY SIX HOURS NEEDED (back pain). Max Daily Amount: 80 mg. 180 Tab 0 VIIBRYD 40 MG Oral Tab Take 40 mg by mouth DAILY. 30 Tab 0 Exam BP 124/70 Pulse 70 LMP 11/04/2012 The abdomen is soft without tenderness, guarding, mass, rebound or organomegaly. Bowel sounds are normal. No CVA tenderness or inguinal adenopathy noted. Mental status exam; she is alert, orient to time, person and place. Normal thought content, speech, affect, mood and dress are noted. . ICD-9-CM ICD-10-CM 1. Chronic diarrhea unclear cause use loperamide her stool studies have been negative in the past stop linzess if persistent then gastro-intestinal consult 787.91 K52.9 COMPREHENSIVE METABOLIC PANEL THYROID STIMULATING HORMONE 2. Hypokalemia cmp today 276.8 E87.6 3. Chronic pain syndrome continue current medications 338.4 G89.4 4. Multiple sclerosis, primary progressive (HCC) 340 G35 5. Acquired hypothyroidism tsh today continue current medications 244.9 E03.9 6. Wheelchair bound V46.3 Z99.3 7. Moderate episode of recurrent major depressive disorder (HCC) 296.32 F33.1 8. Polypharmacy medication list was cleaned up and dupl;icate medications stopped V58.69 Z79.899 9. Medication monitoring encounter tegretol and lithium level drawn today V58.83 Z51.81 LITHIUM LEVEL CARBAMAZEPINE LEVEL I reviewed the discharge summary, discharge instructions, and pertinent additional documentation obtained during hospitalization. I reconciled the medications. I also reviewed the Transition of Care documentation done by staff. The tests that were not available at the time of discharge were reviewed. Additional tests which are not yet available include: none Coordination of care. - Additional testing related to hospitilization was requested today: yes See orders. I confirmed the patient's understanding of the diagnosis and plan of care. Specific education that was provided today: Patient Instructions Stop linzess Blood level today for lithium tegretol and potassium Level Use over the counter diarrhea medication called loperamide 2 mg 1-2 pills four times daily as needed, maximum daily dose is 8 pills. The current and discharge medications were reconciled by me, today The source document was hospital discharge summary documented in this encounter Plan of Treatment Name Type Priority Associated Diagnoses Date/Time COMPREHENSIVE METABOLIC Lab Routine Chronic diarrhea 04/11/2019 11:40 AM PANEL EDT THYROID STIMULATING Lab Routine Chronic diarrhea 04/11/2019 11:40 AM HORMONE EDT LITHIUM LEVEL Lab Routine Medication monitoring 04/11/2019 11:40 AM encounter EDT CARBAMAZEPINE LEVEL Lab Routine Medication monitoring 04/11/2019 11:40 AM encounter EDT Health Maintenance Due Date Last Done Comments [...] Author Type Problems Progress Depression Depression 15 Avril Gore screen (PHQ-9) (02/01/2018 BO Parker total score < 5 9:15 AM EDT) Note: This is an individualized treatment (depression) goal for Karla Blayne: Displayed above is your goal for a [...] Diagnoses Diagnosis Chronic diarrhea - Primary Diarrhea Hypokalemia Hypopotassemia Chronic pain syndrome Multiple sclerosis, primary progressive (HCC) Multiple sclerosis Acquired hypothyroidism Unspecified hypothyroidism Wheelchair bound Wheelchair dependence Moderate episode of recurrent major depressive disorder (HCC) Polypharmacy Issue of repeat prescriptions Medication monitoring encounter Encounter for therapeutic drug monitoring documented in this encounter Insurance Payer Benefit Plan / Subscriber ID Effective Dates Phone Address Type Group AETNA MEDICARE AETNA MEDICARE xxxxxxxx 2018-Present [employer] ADVANTAGE ADVANTAGE documented as of this encounter Advance Directives Type Date Recorded Patient Supervisor Knitting Explanation Advance Directives 10/20/2012 9:52 AM Health Care Proxy
[2019-05-25 12:26] LABS: ABS Lymphocytes 0.9 10^3/ul (1.0-4.8); ABS Monocytes 0.5 10^3/ul (0-0.8); ABS Neutrophils 3.6 10^3/ul (1.5-7.7); Eosinophil % 0.1 %; Hematocrit 46 % (35-47); Hemoglobin 15.1 g/dL (12.0-16.0); Lymphocyte % 18.1 %; Mean Corpuscular HGB Conc 33 g/dL (31-36); Mean Corpuscular Hemoglobin 30 pg (27-31); Mean Corpuscular Volume 91 fL (80-97); Mean Platelet Volume 7.9 fL (7.4-10.4); Platelet Count 302 10^3/uL (150-450); Red Blood Count 5.02 10^6 /uL (3.70-4.87); Red Cell Distribution Width 16 % (10-15); White Blood Count 5.1 10^3/uL (3.5-10.8)
[2019-05-25 12:32] LABS: INR 0.98 (0.82-1.09)
[2019-05-25 12:46] LABS: Carbamazepine 3.1 mcg/mL (4.0-12.0); Lithium 1.06 mmol/L (0.6-1.2)
[2019-05-25 12:48] LABS: Albumin 4.4 g/dL (3.2-5.2); Albumin/Globulin Ratio 1.5 (1-3); BUN/Creatinine Ratio 7.5 (8-20); Calcium 10.2 mg/dL (8.6-10.3); EGFR African American 92.2 (>60); EGFR Non-African American 76.2 (>60); Potassium 4.2 mmol/L (3.5-5.0); Total Bilirubin 0.5 mg/dL (0.2-1.0); Total Protein 7.4 g/dL (6.4-8.9)
[2019-05-25 14:14] VITALS: BP 127/67
[2019-05-25 15:00] LABS: Urine Appearance Clear; Urine Bilirubin Negative (Negative); Urine Blood Negative (Negative); Urine Color Straw; Urine Glucose Negative (Negative); Urine Ketones Negative (Negative); Urine Nitrite Negative (Negative); Urine Protein Negative (Negative); Urine Specific Gravity 1.004 (1.010-1.030); Urine Urobilinogen Negative (Negative)
--- NOTE | 2019-05-25 15:39 | ED ---
Neurological HPI - HPI Summary HPI Summary: Pt is a 48yo F with a complex PMH presenting to the ED with slurred speech, and difficulty with word finding for the past 2-3 days. No acute onset. States she gradually noticed this worsening. Denies any worsening weakness. States she has difficulty with transfers at baseline and uses a wheelchair for mobilization. Pt does have home health aids who come to her home daily for care and to cook her breakfast. Otherwise she lives alone and states she continues to be able to get around, however with more difficulty. Father has noticed confusion, difficulty with word finding and slurred speech. She does endorse weakness in the upper extremities which is "new" as of about a month. Not worse in the last few days. Denies fevers, sweats, chills, abd pain, urinary symptoms, back pain or any visual changes. Patient was able to call Dr. Lara's office who sent in for further evaluation. - History of Current Complaint Chief Complaint: EDNeurologicalDeficit Stated Complaint: CONFUSION, AND LETHARGIC PER EMS Time Seen by Provider: 05/25/19 11:39 Hx Obtained From: Patient Onset/Duration: Sudden Onset Timing: Constant Onset Severity: Moderate Current Severity: Mild Seizure Severity: Mild Neurological Deficit Location: Generalized Pain Intensity: 0 Pain Scale Used: 0-10 Numeric Associated Signs and Symptoms: Positive: Memory Loss, Impaired Speech TPA Considered: No - Additional Pertinent History Primary Care Physician: [id number] - Allergy/Home Medications Allergies/Adverse Reactions: Allergies Allergy/AdvReac Type Severity Reaction Status Date / Time bee venom protein (honey bee) Allergy Severe See Comment Verified 02/08/19 23:34 onion Allergy Severe See Comment Verified 02/08/19 23:34 Sulfa (Sulfonamide Allergy Severe Unknown Verified 02/08/19 23:34 Antibiotics) Reaction Details aspirin Allergy Intermediate Nausea Verified 02/08/19 23:34 Penicillins Allergy Intermediate See Comment Verified 02/08/19 23:34 [place] And Derivatives Allergy Unknown See Comment Verified 02/08/19 23:34 erythromycin base Allergy Unknown Verified 02/08/19 23:34 Reaction Details Home Medications: Home Medications Bacitracin OINTMENT* 1 applic TOPICAL DAILY 05/25/19 [History Confirmed 05/25/19 ] Diphenoxylate HCl/Atropine [Lomotil 2.5-0.025 mg Tablet] 1 tab PO QID PRN [History Confirmed 05/25/19] Oxybutynin TAB* [Ditropan TAB*] 5 mg PO QAM 05/25/19 [History Confirmed 05/25/19 ] carBAMazepine TAB(*) [Tegretol TAB(*)] 100 mg PO DAILY 05/25/19 [History Confirmed 05/25/19] PMH/Surg Hx/FS Hx/Imm Hx Previously Healthy: No - MS Endocrine/Hematology History: Reports: Hx Thyroid Disease Denies: Hx Diabetes, Hx Anemia, Hx Unexplained Bleeding, Other Endocrine/ Hematological Disorders Cardiovascular History: Denies: Hx Aneurysm, Hx Angina, Hx Angioplasty, Hx Auto Implanted Cardiovert Defib, Hx Cardiac Arrest, Hx Cardiomegaly, Hx Congenital Heart Disease, Hx Congestive Heart Failure, Hx Coronary Artery Disease, Hx Deep Vein Thrombosis, Hx Embolism, Hx Hypercholesterolemia, Hx Hypotension, Hx Hypertension, Hx Pacemaker/ICD, Hx Peripheral Vascular Disease, Hx Rheumatic Fever, Hx Syncope, Hx Valvular Heart Disease, Other Cardiovascular Problems/Disorders Respiratory History: Reports: Hx Asthma - as a child, Hx Pulmonary Embolism, Hx Sleep Apnea Denies: Hx Chronic Bronchitis, Hx Chronic Obstructive Pulmonary Disease (COPD ), Hx Cystic Fibrosis, Hx Lung Cancer, Hx Pleural Effusion, Hx Pneumonia, Hx Pulmonary Edema, Hx Seasonal Allergies, Other Respiratory Problems/Disorders GI History: Reports: Hx Gastroesophageal Reflux Disease, Hx Ulcer Denies: Hx Gastrointestinal Bleed, Hx Hiatal Hernia History: Reports: Other Problems/Disorders - urinary incontinence Denies: Hx Dialysis, Hx Kidney Stones, Hx Renal Disease Musculoskeletal History: Reports: Hx Arthritis - knees, right hand, Hx Back Problems, Other Musculoskeletal History - MS Denies: Hx Bursitis, Hx Congenital Bone Abnormalities, Hx Fibromyalgia, Hx Gout, Hx Orthopedic Injury, Hx Osteoporosis, Hx Scoliosis, Hx Tendonitis Sensory History: Reports: Hx Contacts or Glasses, Other Sensory Impairments - Numbness in feet Denies: Hx Cataracts, Hx Eye Injury, Hx Eye Prosthesis, Hx Glaucoma, Hx Legally Blind, Hx Macular Degeneration, Hx Vision Problem, Hx Deafness, Hx Hearing Aid, Hx Hearing Problem Opthamlomology History: Reports: Hx Contacts or Glasses, Other Sensory Impairments - Numbness in feet Denies: Hx Cataracts, Hx Eye Injury, Hx Eye Prosthesis, Hx Glaucoma, Hx Legally Blind, Hx Macular Degeneration, Hx Vision Problem Neurological History: Reports: Hx Headaches, Hx Migraine, Hx Nerve Disease, Hx Seizures, Other Neuro Impairments/Disorders - MS Denies: Hx Dementia, Hx Developmental Delay, Hx Spinal Cord Injury, Hx Transient Ischemic Attacks (TIA) Psychiatric History: Reports: Hx Anxiety, Hx Depression, Hx Suicide Attempt, Hx Substance Abuse Denies: Hx Attention Deficit Hyperactivity Disorder, Hx Eating Disorder, Hx Panic Disorder, Hx Post Traumatic Stress Disorder, Hx Inpatient Treatment, Hx Community Mental Health Tx, Hx Schizophrenia, Hx Bipolar Disorder, Hx of Violent Episodes Against Others, Other Psychiatric Issues/Disorders - Cancer History Hx Chemotherapy: Yes - For MS Hx Radiation Therapy: No - Surgical History Surgery Procedure, Year, and Place: BREAST REDUCTION 2005, oral surgeries Hx Anesthesia Reactions: No - Immunization History Date of Tetanus Vaccine: Unknown Date of Influenza Vaccine: Unk re: Fall 2014 Hx Pertussis Vaccination: No Immunizations Up to Date: Yes Infectious Disease History: No Infectious Disease History: Denies: Hx Clostridium Difficile, Hx Hepatitis, Hx Human Immunodeficiency Virus (HIV), Hx of Known/Suspected MRSA, Hx Shingles, Hx Tuberculosis, Hx Known/ Suspected VRE, Hx Known/Suspected VRSA, History Other Infectious Disease, Traveled Outside the [place] in Last 30 Days - Family History Known Family History: Positive: Cardiac Disease - Father, Diabetes Family History: FHx of spina bifida - Social History Occupation: Unemployed Lives: Alone Alcohol Use: None 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 Negative: Paresthesia, Numbness, Syncope Psychological: Normal All Other Systems Reviewed And Are Negative: Yes Physical Exam Triage Information Reviewed: Yes Vital Signs On Initial Exam: Initial Vitals Temp Pulse Resp BP Pulse Ox 98.6 F 80 18 126/71 98 05/25/19 11:15 05/25/19 11:15 05/25/19 11:15 05/25/19 11:15 05/25/19 11:15 Vital Signs Reviewed: Yes Appearance: Positive: No Pain Distress, Well-Nourished Skin: Positive: Warm, Skin Color Reflects Adequate Perfusion Head/Face: Positive: Normal Head/Face Inspection Eyes: Positive: EOMI, LUIS, Conjunctiva Clear Neck: Positive: Supple, No Lymphadenopathy Respiratory/Lung Sounds: Positive: Clear to Auscultation, Breath Sounds Present Cardiovascular: Positive: RRR, Pulses are Symmetrical in both Upper and Lower Extremities Musculoskeletal: Positive: Normal, Strength/ROM Intact Neurological: Positive: Unable to Assess Gait, Speech Normal. Negative: Sensory /Motor Intact, Alert, Oriented to Person Place, Time, Facial Droop Psychiatric: Positive: Normal, Affect/Mood Appropriate AVPU Assessment: Alert - Janes Coma Scale Best Eye Response: 4 - Spontaneous Best Motor Response: 6 - Obeys Commands Best Verbal Response: 5 - Oriented Coma Scale Total: 15 Procedures - Sedation Patient Received Moderate/Deep Sedation with Procedure: No Diagnostics - Vital Signs Vital Signs Temp Pulse Resp BP Pulse Ox 05/25/19 14:37 98.4 F 82 16 127/67 100 05/25/19 14:09 127/67 05/25/19 14:00 82 100 05/25/19 13:39 77 114/78 100 05/25/19 13:31 78 99 05/25/19 13:08 132/81 05/25/19 12:39 78 113/68 99 05/25/19 12:38 79 99 05/25/19 11:15 98.6 F 80 18 126/71 98 - Laboratory Lab Results: Lab Results 05/25/19 05/25/19 05/25/19 Range/Units 12:10 12:10 12:10 WBC 5.1 (3.5-10.8) 10^3/uL RBC 5.02 H (3.70-4.87) 10^6 /uL Hgb 15.1 (12.0-16.0) g/dL Hct 46 (35-47) % MCV 91 (80-97) fL MCH 30 (27-31) pg MCHC 33 (31-36) g/dL RDW 16 H (10-15) % Plt Count 302 (150-450) 10^3/uL MPV 7.9 (7.4-10.4) fL Neut % (Auto) 70.7 % Lymph % (Auto) 18.1 % [place] % (Auto) 10.4 % Eos % (Auto) 0.1 % Baso % (Auto) 0.7 % Absolute Neuts (auto) 3.6 (1.5-7.7) 10^3/ul Absolute Lymphs (auto) 0.9 L (1.0-4.8) 10^3/ul Absolute Monos (auto) 0.5 (0-0.8) 10^3/ul Absolute Eos (auto) 0.0 (0-0.6) 10^3/ul Absolute Basos (auto) 0.0 (0-0.2) 10^3/ul Absolute Nucleated RBC 0.0 10^3/ul Nucleated RBC % 0.0 INR (Anticoag Therapy) 0.98 (0.82-1.09) Sodium 141 (135-145) mmol/L Potassium 4.2 (3.5-5.0) mmol/L Chloride 104 (101-111) mmol/L Carbon Dioxide 28 (22-32) mmol/L Anion Gap 9 (2-11) mmol/L BUN 6 (6-24) mg/dL Creatinine 0.80 (0.51-0.95) mg/dL Est GFR ( Amer) 92.2 (>60) Est GFR (Non-Af Amer) 76.2 (>60) BUN/Creatinine Ratio 7.5 L (8-20) Glucose 93 (70-100) mg/dL Lactic Acid (0.5-2.0) mmol/L Calcium 10.2 (8.6-10.3) mg/dL Total Bilirubin 0.50 (0.2-1.0) mg/dL AST 20 (13-39) U/L ALT 22 (7-52) U/L Alkaline Phosphatase 217 H (34-104) U/L Troponin I 0.00 (<0.03) ng/mL Total Protein 7.4 (6.4-8.9) g/dL Albumin 4.4 (3.2-5.2) g/dL Globulin 3.0 (2-4) g/dL Albumin/Globulin Ratio 1.5 (1-3) Urine Color Urine Appearance Urine pH (5-9) Ur Specific [place] (1.010-1.030) Urine Protein (Negative) Urine Ketones (Negative) Urine Blood (Negative) Urine Nitrate (Negative) Urine Bilirubin (Negative) Urine Urobilinogen (Negative) Ur Leukocyte Esterase (Negative) Urine Glucose (Negative) Carbamazepine 3.1 L (4.0-12.0) mcg/mL [place] 1.06 (0.6-1.2) mmol/L 05/25/19 05/25/19 Range/Units 12:10 14:10 WBC (3.5-10.8) 10^3/uL RBC (3.70-4.87) 10^6 /uL Hgb (12.0-16.0) g/dL Hct (35-47) % MCV (80-97) fL MCH (27-31) pg MCHC (31-36) g/dL RDW (10-15) % Plt Count (150-450) 10^3/uL MPV (7.4-10.4) fL Neut % (Auto) % Lymph % (Auto) % [place] % (Auto) % Eos % (Auto) % Baso % (Auto) % Absolute Neuts (auto) (1.5-7.7) 10^3/ul Absolute Lymphs (auto) (1.0-4.8) 10^3/ul Absolute Monos (auto) (0-0.8) 10^3/ul Absolute Eos (auto) (0-0.6) 10^3/ul Absolute Basos (auto) (0-0.2) 10^3/ul Absolute Nucleated RBC 10^3/ul Nucleated RBC % INR (Anticoag Therapy) (0.82-1.09) Sodium (135-145) mmol/L Potassium (3.5-5.0) mmol/L Chloride (101-111) mmol/L Carbon Dioxide (22-32) mmol/L Anion Gap (2-11) mmol/L BUN (6-24) mg/dL Creatinine (0.51-0.95) mg/dL Est GFR ( Amer) (>60) Est GFR (Non-Af Amer) (>60) BUN/Creatinine Ratio (8-20) Glucose (70-100) mg/dL Lactic Acid 1.8 (0.5-2.0) mmol/L Calcium (8.6-10.3) mg/dL Total Bilirubin (0.2-1.0) mg/dL AST (13-39) U/L ALT (7-52) U/L Alkaline Phosphatase (34-104) U/L Troponin I (<0.03) ng/mL Total Protein (6.4-8.9) g/dL Albumin (3.2-5.2) g/dL Globulin (2-4) g/dL Albumin/Globulin Ratio (1-3) Urine Color Straw Urine Appearance Clear Urine pH 7.0 (5-9) Ur Specific [place] 1.004 L (1.010-1.030) Urine Protein Negative (Negative) Urine Ketones Negative (Negative) Urine Blood Negative (Negative) Urine Nitrate Negative (Negative) Urine Bilirubin Negative (Negative) Urine Urobilinogen Negative (Negative) Ur Leukocyte Esterase Negative (Negative) Urine Glucose Negative (Negative) Carbamazepine (4.0-12.0) mcg/mL [place] (0.6-1.2) mmol/L Result Diagrams: 05/25/19 12:10 05/25/19 12:10 Lab Statement: Any lab studies that have been ordered have been reviewed, and results considered in the medical decision making process. NIH Scale - NIH Scale Level of Consciousness: Alert/Keenly Responsive Ask Patient the Month and His/Her Age: Both Correct Ask Pt to Open/Close Eyes and Senior Programmer/Release Non-Paretic Hand: Both Correctly Best Gaze (Only Horizontal Eye Movement): Normal Visual Field Testing: No Visual Loss Facial Paresis-Pt to Smile & Close Eyes or [place] Symmetry: Normal/Symmetrical Motor Function - Right Arm: No Drift-Holds 10 Seconds Motor Function - Left Arm: No Drift-Holds 10 Seconds Motor Function - Right Leg: Effort Against [place] Motor Function - Left Leg: Effort Against [place] Limb Ataxia-Must be out of Proportion to Weakness Present: Absent Sensory (Use Pinprick to Test Arms/Legs/Trunk/Face): Normal Best Language (Describe Picture, Name Items): No Aphasia Dysarthria (Read Several Words): Normal Extinction and Inattention: No Abnormality Total Score: 4 Course/Dx - Course Course Of Treatment: This patient is a 48-year-old female with a complex past medical history. Patient endorses difficulty with word finding, slow to respond , slurred speech confusion and some memory loss. She does have some confusion and memory loss at baseline, however she does feel this has been worsening over the past 2-3 days. She states she does not notice her slurred speech, however her father has noticed. She does have a history of MS and a seizure in June to which she was stabilized in the ICU. Since then she has been on carbamazepine and lithium. On physical examination, there is no obvious evidence of slurred speech. Patient does have decreased sensation to the face ( R side) and slightly decreased strength to the RUE. No focal deficits to the lower extremities, however this is difficult to evaluated d/t patients weakness at baseline. No facial asymmetry. CT brain obtained which shows no acute findings. Labs are WNL. Patient states she would like to fill out new MOLST form and transition to hospice care. SW was called who is able to set up palliative care. Dr. Garcia made aware and will start transition. When patient gets approved, she will move to hospice care. Discussed with patient and she would like to be DC'd home. Wishes to not stay in hospital. Only trial of abx if needed. UA obtained and negative. Pt will be DC'd home and Dr. Garcia and Dr. Lara/Jc Rick will continue to follow as outpatient. - Differential Dx Differential Diagnoses Neuro: Positive: Other - MS exacerbation, worsening MS condition, TIA - Diagnoses Provider Diagnoses: Word finding difficulty Discharge ED - Sign-Out/Discharge Documenting (check all that apply): Patient Departure - Discharge Plan Condition: Stable Disposition: HOME Referrals: Deo Lara MD [Medical Doctor] - Chiki Chandler MD [Primary Care Provider] - Additional Instructions: Please follow up with Dr. Lara - Billing Disposition and Condition Condition: STABLE Disposition: Home
== END 2019-05-25 15:24 | disposition home or self-care (01) ==
LOC: ED 11:10
DX: R47.01 Aphasia (principal); R53.1 Weakness; R41.0 Disorientation, unspecified; G40.909 Epilepsy, unspecified, not intractable, without status epilepticus; G35 Multiple sclerosis; Z88.6 Allergy status to analgesic agent; Z88.1 Allergy status to other antibiotic agents; Z91.030 Bee allergy status; Z88.0 Allergy status to penicillin; Z88.2 Allergy status to sulfonamides; Z91.018 Allergy to other foods; Z87.891 Personal history of nicotine dependence
CPT/HCPCS: 36415; 70450; 80053; 80156; 80178; 81003; 83605; 84484; 85025; 85610; 99283

== ENCOUNTER 2019-05-28 14:01 | Inpatient (IN) | payer MEDICAID, MEDICARE ==
--- NOTE | 2019-05-28 14:31 | ED ---
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 She has experienced decreased motivation and movement along with speech today per wire drawing machine operator. She reports fatigue and SOB. She has a Hx of MS for several years. She was here a couple days ago for fatigue and speech difficulties. She states both of these are worse today. She states she is wheel chair bound due to MS and incontinent of urine. 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 She is not on any MS medications due to being in end stage. She is being followed by Dr. Lara. She is supposed to be admitted to hospice on Thursday per her health care proxy. - History Of Current Complaint Chief Complaint: EDAltMentalStatus Time Seen by Provider: 05/28/19 14:06 Hx Obtained From: Patient, Family/Fabricator Industrial Furnace Timing: Constant, Hours - Allergies/Home Medications Allergies/Adverse Reactions: Allergies Allergy/AdvReac Type Severity Reaction Status Date / Time bee venom protein (honey bee) Allergy Severe See Comment Verified 02/08/19 23:34 onion Allergy Severe See Comment Verified 02/08/19 23:34 Sulfa (Sulfonamide Allergy Severe Unknown Verified 02/08/19 23:34 Antibiotics) Reaction Details aspirin Allergy Intermediate Nausea Verified 02/08/19 23:34 Penicillins Allergy Intermediate See Comment Verified 02/08/19 23:34 [place] And Derivatives Allergy Unknown See Comment Verified 02/08/19 23:34 erythromycin base Allergy Unknown Verified 02/08/19 23:34 Reaction Details Home Medications: Home Medications Amantadine HCl [Amantadine] 100 mg PO BID 05/28/19 [History Confirmed 05/28/19] Baclofen TAB* [Lioresal TAB*] 1 tab PO BID 05/28/19 [History Confirmed 05/28/19 ] Omeprazole 20 mg PO DAILY 05/28/19 [History Confirmed 05/28/19] PMH/Surg Hx/FS Hx/Imm Hx Endocrine/Hematology History: Reports: Hx Thyroid Disease Denies: Hx Diabetes, Hx Anemia, Hx Unexplained Bleeding, Other Endocrine/ Hematological Disorders Cardiovascular History: Denies: Hx Aneurysm, Hx Angina, Hx Angioplasty, Hx Auto Implanted Cardiovert Defib, Hx Cardiac Arrest, Hx Cardiomegaly, Hx Congenital Heart Disease, Hx Congestive Heart Failure, Hx Coronary Artery Disease, Hx Deep Vein Thrombosis, Hx Embolism, Hx Hypercholesterolemia, Hx Hypotension, Hx Hypertension, Hx Pacemaker/ICD, Hx Peripheral Vascular Disease, Hx Rheumatic Fever, Hx Syncope, Hx Valvular Heart Disease, Other Cardiovascular Problems/Disorders Respiratory History: Reports: Hx Asthma - as a child, Hx Pulmonary Embolism, Hx Sleep Apnea Denies: Hx Chronic Bronchitis, Hx Chronic Obstructive Pulmonary Disease (COPD ), Hx Cystic Fibrosis, Hx Lung Cancer, Hx Pleural Effusion, Hx Pneumonia, Hx Pulmonary Edema, Hx Seasonal Allergies, Other Respiratory Problems/Disorders GI History: Reports: Hx Gastroesophageal Reflux Disease, Hx Ulcer Denies: Hx Gastrointestinal Bleed, Hx Hiatal Hernia History: Reports: Other Problems/Disorders - urinary incontinence Denies: Hx Dialysis, Hx Kidney Stones, Hx Renal Disease Musculoskeletal History: Reports: Hx Arthritis - knees, right hand, Hx Back Problems, Other Musculoskeletal History - MS Denies: Hx Bursitis, Hx Congenital Bone Abnormalities, Hx Fibromyalgia, Hx Gout, Hx Orthopedic Injury, Hx Osteoporosis, Hx Scoliosis, Hx Tendonitis Sensory History: Reports: Hx Contacts or Glasses, Other Sensory Impairments - Numbness in feet Denies: Hx Cataracts, Hx Eye Injury, Hx Eye Prosthesis, Hx Glaucoma, Hx Legally Blind, Hx Macular Degeneration, Hx Vision Problem, Hx Deafness, Hx Hearing Aid, Hx Hearing Problem Opthamlomology History: Reports: Hx Contacts or Glasses, Other Sensory Impairments - Numbness in feet Denies: Hx Cataracts, Hx Eye Injury, Hx Eye Prosthesis, Hx Glaucoma, Hx Legally Blind, Hx Macular Degeneration, Hx Vision Problem Neurological History: Reports: Hx Headaches, Hx Migraine, Hx Nerve Disease, Hx Seizures, Other Neuro Impairments/Disorders - MS Denies: Hx Dementia, Hx Developmental Delay, Hx Spinal Cord Injury, Hx Transient Ischemic Attacks (TIA) Psychiatric History: Reports: Hx Anxiety, Hx Depression, Hx Suicide Attempt, Hx Substance Abuse Denies: Hx Attention Deficit Hyperactivity Disorder, Hx Eating Disorder, Hx Panic Disorder, Hx Post Traumatic Stress Disorder, Hx Inpatient Treatment, Hx Community Mental Health Tx, Hx Schizophrenia, Hx Bipolar Disorder, Hx of Violent Episodes Against Others, Other Psychiatric Issues/Disorders - Cancer History Hx Chemotherapy: Yes - For MS Hx Radiation Therapy: No - Surgical History Surgery Procedure, Year, and Place: BREAST REDUCTION 2005, oral surgeries Hx Anesthesia Reactions: No - Immunization History Date of Tetanus Vaccine: Unknown Date of Influenza Vaccine: Unk re: Fall 2014 Infectious Disease History: No Infectious Disease History: Denies: Hx Clostridium Difficile, Hx Hepatitis, Hx Human Immunodeficiency Virus (HIV), Hx of Known/Suspected MRSA, Hx Shingles, Hx Tuberculosis, Hx Known/ Suspected VRE, Hx Known/Suspected VRSA, History Other Infectious Disease, Traveled Outside the [place] in Last 30 Days - Family History Known Family History: Positive: Cardiac Disease - Father, Diabetes Family History: FHx of spina bifida - Social History Alcohol Use: None 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 Positive: Weakness Psychological: Other - Lack of motivation All Other Systems Reviewed And Are Negative: Yes Physical Exam - Summary Physical Exam Summary: Constitutional: Tearful, chronically ill appearing Skin: Warm, Dry HENT: Normocephalic; Atraumatic Eyes: Conjunctiva normal Neck: Musculoskeletal ROM normal neck. (-) JVD, (-) Stridor, (-) Nuchal rigidity Cardio: Rhythm regular, rate normal, Heart sounds normal; Intact distal pulses; Radial pulses are 2+ and symmetric. (-) Murmur Pulmonary/Chest wall: Effort normal. (-) Respiratory distress, (-) Wheezes, (-) Rales Abd: Soft, (-) tenderness, (-) Distension, (-) Guarding, (-) Rebound Musculoskeletal: (-) Edema, weakness LE>UE Lymph: (-) Cervical adenopathy Neuro: Alert, Oriented x3 Psych: tearful Triage Information Reviewed: Yes Vital Signs On Initial Exam: Initial Vitals Temp Pulse Resp BP Pulse Ox 98.7 F 77 18 142/80 99 05/28/19 14:02 05/28/19 14:02 05/28/19 14:02 05/28/19 14:02 05/28/19 14:02 Vital Signs Reviewed: Yes Procedures - Sedation Patient Received Moderate/Deep Sedation with Procedure: No Diagnostics - Vital Signs Vital Signs Temp Pulse Resp BP Pulse Ox 05/28/19 14:02 98.7 F 77 18 142/80 99 - Laboratory Result Diagrams: 05/28/19 15:29 05/28/19 15:29 Lab Statement: Any lab studies that have been ordered have been reviewed, and results considered in the medical decision making process. - Radiology CXR Radiology Interpretation Completed By: Radiologist Summary of Radiographic Findings: 1. No acute cardiopulmonary process by radiograph. 2. The unchanged Mediport catheter terminates in the right atrium. ED Provider has reviewed this report. Complex Multi-Symp Course/Dx Course Of Treatment: 48 y/o F with hx MS p/w worsening of MS symptoms including fatigue, confusion. - d/w and healthcare proxy who states that they were interested in pursuing hospice. Initially discussed with Dr. Mendoza for MS exacerbation however given that they are requesting hospice, will not pursue additional workup. - labs and CXR w/o e/o infection. - healthcare proxy and patient wish to pursue comfort care, paperwork signed - Diagnoses Provider Diagnoses: Multiple sclerosis Discharge ED - Sign-Out/Discharge Documenting (check all that apply): Patient Departure - Admission, accepted by Dr. High, hospitalist. - Discharge Plan Condition: Stable Disposition: ADMITTED TO [facility] - Billing Disposition and Condition Condition: STABLE Disposition: Admitted to [facility] - Attestation Statements Document Initiated by Polly: Yes Documenting Scribe: Fabian Cr Provider For Whom Polly is Documenting (Include Credential): Blanca Bradshaw MD Scribe Attestation: Fabian Baez scribed for Blanca Bradshaw MD on 05/29/19 at 1152. Scribe Documentation Reviewed: Yes Provider Attestation: The documentation as recorded by the Fabian mark accurately reflects the service I personally performed and the decisions made by me, Blanca Bradshaw MD Status of Scribe Document: Viewed
[2019-05-28 15:08] LABS: Urine Appearance Clear; Urine Bilirubin Negative (Negative); Urine Blood Negative (Negative); Urine Color Straw; Urine Glucose Negative (Negative); Urine Ketones Negative (Negative); Urine Nitrite Negative (Negative); Urine Protein Negative (Negative); Urine Specific Gravity 1.006 (1.010-1.030); Urine Urobilinogen Negative (Negative)
[2019-05-28 15:16] LABS: Urine Bacteria Absent (Absent); Urine Red Blood Cell Absent (Absent); Urine Squamous Epithelial Cell Present (Absent); Urine White Blood Cell Trace(0-5/hpf) (Absent)
[2019-05-28 15:37] LABS: ABS Lymphocytes 1.2 10^3/ul (1.0-4.8); ABS Monocytes 0.8 10^3/ul (0-0.8); ABS Neutrophils 4.3 10^3/ul (1.5-7.7); Hematocrit 45 % (35-47); Hemoglobin 14.9 g/dL (12.0-16.0); Lymphocyte % 18.9 %; Mean Corpuscular HGB Conc 33 g/dL (31-36); Mean Corpuscular Hemoglobin 30 pg (27-31); Mean Corpuscular Volume 91 fL (80-97); Mean Platelet Volume 7.9 fL (7.4-10.4); Nucleated Red Blood Cells % 0.1; Platelet Count 271 10^3/uL (150-450); Red Blood Count 4.96 10^6 /uL (3.70-4.87); Red Cell Distribution Width 15 % (10-15); White Blood Count 6.4 10^3/uL (3.5-10.8)
[2019-05-28 15:54] LABS: Albumin 4.2 g/dL (3.2-5.2); Albumin/Globulin Ratio 1.6 (1-3); Calcium 9.9 mg/dL (8.6-10.3); EGFR African American 92.2 (>60); EGFR Non-African American 76.2 (>60); Globulin 2.7 g/dL (2-4); Potassium 4.1 mmol/L (3.5-5.0); Total Bilirubin 0.5 mg/dL (0.2-1.0); Total Protein 6.9 g/dL (6.4-8.9)
[2019-05-28 17:06] LABS: TSH (Thyroid Stimulating Horm) 1.2 mcIU/mL (0.34-5.60)
[2019-05-28] MEDS ORDERED: Ondansetron TAB* 4 MG PO PRN (17:18)
[2019-05-28] MEDS ORDERED: Diphenoxylat/Atrop 2.5-0.025M* 1 TAB PO PRN (17:18)
[2019-05-28] MEDS ORDERED: Acetaminophen TAB* 325 MG PO PRN (17:23)
--- NOTE | 2019-05-28 20:54 | HP ---
CC: Dr. Chandler; Dr. Lara, Neurology; Dr. Linder * HISTORY AND PHYSICAL: DATE OF ADMISSION: 05/28/19 PRIMARY CARE PROVIDER: Dr. Chandler. ONCOLOGIST: Dr. Linder. CHIEF COMPLAINT: Generalized weakness. "I want to go to hospice." HISTORY OF PRESENT ILLNESS: Karla Cisneros is a 48-year-old female with a history of relapsing multiple sclerosis who was just informed by her primary neurologist, Dr. Lara, that there are not that many medications she can use in the future. She suffered from multiple significant side effects from her prior medications including hemorrhagic cystitis from cyclophosphamide and seizures secondary to another medication. The patient had been not eating well and failing to thrive at home. Her ex-, who is the patient's healthcare proxy, Humera, is by the patient's bedside. They both request for the patient to be hospice and comfort care. The also came into the hospital because they tried to arrange hospice care outpatient and it was impossible for them to do. The patient has an health aide that takes care of the patient several hours a day and the aide stated that this patient is not safe to be at home alone at this point, and Humera is unable to take care of the patient. At this point , Humera and the patient requested for the patient to be admitted to alf admission. They are worried that the insurance may not pay for the admission and there may be burden with additional payments due to that and agreed to that. The patient is going to be admitted to comfort care and alf care to our hospital with a goal of palliative care consult on Thursday. PAST MEDICAL HISTORY: 1. History of relapsing multiple sclerosis with generalized weakness, episodes of optic neuritis in the past, chronic urinary incontinence. 2. Depression. 3. Asthma. 4. Migraines. 5. Provoked left femoral DVT in the past. 6. History of myositis. 7. Obstructive sleep apnea, on CPAP. 8. Seizure disorder thought to be secondary to one of the medications for MS. 9. Chronic lower back pain. 10. Status post breast reduction in the past. MEDICATIONS: At home include: 1. Amantadine 100 mg twice a day. 2. Baclofen 20 mg twice a day. 3. Rexulti 1 tablet daily. 4. Carbamazepine XR 100 mg daily and carbamazepine without the XR 200 mg twice a day. 5. Diazepam 5 mg b.i.d. p.r.n. 6. Lomotil 1 tablet 4 times a day as needed. 7. Synthroid 75 mcg daily. 8. [place] 900 mg at bedtime. 9. Mirabegron ER 50 mg daily. 10. Zofran 4 mg every 8 hours p.r.n. 11. Ditropan 5 mg one in the morning and two in p.m. 12. Viibryd 40 mg daily. ALLERGIES: Include ASPIRIN, PENICILLIN, SULFA, BEE VENOM, ONIONS, and CITRUS. FAMILY HISTORY: Mother at the age of 60 from heart attack. Father had hyperlipidemia. SOCIAL HISTORY: The patient lives alone, has a health aide on a daily basis. She is nonambulatory and recently she was unable to transfer to her wheelchair anymore. She denies any smoking or drug use. She quit drinking alcohol excessively 30 years ago, but she is recovering alcoholic. She is , has a 12-year-old son, and her surrogate decision maker is her ex-, Humera Lino. REVIEW OF SYSTEMS: Positive for progressive problems with eating and drinking. The patient feels that she just does not feel like eating and she complains of constant nausea due to constant diplopia that she had due to her optic neuritis. She has occasional diarrhea for which she uses Lomotil. She is occasionally confused as per her ex-, Humera, who is sitting by the patient's bedside today. In addition to that, the patient complains of generalized weakness, worsening weakness in the bilateral upper extremities, continuing weakness in bilateral lower extremities. The patient has urinary incontinence which is chronic. She denies any wounds on her skin. All the remaining 12 systems were reviewed with the patient and were otherwise negative. PHYSICAL EXAMINATION GENERAL: The patient is a very pleasant 48-year-old female who appears chronically ill. The patient is in no acute distress. The patient has difficulty word finding and verbalizing. She is alert and oriented x2. She has problems trying to come up with current date and names of her physicians. VITAL SIGNS: Blood pressure of 142/80, heart rate of 77 and regular, respiratory rate 18, oxygen saturation 98% on room air, temperature of 98.7. HEENT: Head: Atraumatic, normocephalic. Eyes: Pupils are equal and reactive to light and accommodation. Oropharynx is clear. Mucosa moist. NECK: Supple. No JVD. No bruits bilaterally. RESPIRATORY: Clear to auscultation bilaterally. CARDIOVASCULAR: Regular rate and rhythm. No murmur. ABDOMEN: Soft, nontender. Bowel sounds are present in all 4 quadrants. EXTREMITIES: There is no edema. Pulses are +2 bilaterally. No clubbing or cyanosis. NEURO EVALUATION: Speech is slightly garbled, but easy to understand. The patient has difficulty word finding. Cranial nerves II through XII grossly intact. Motor strength in bilateral upper extremities at 4+/5 and bilateral lower extremities at 3+/5. The patient is not able to raise her legs up bed at this point. Sensation diminished on the right side which is chronic for the patient. PSYCHIATRIC EVALUATION: The patient is slightly somnolent, oriented x2. SKIN: No ecchymotic areas or rashes noted. DIAGNOSTIC STUDIES/LAB DATA: White blood cell count of 6.4, hemoglobin of 14.9 , hematocrit of 49, and platelets of 271. Sodium of 141, potassium 4.1, chloride 106, carbon dioxide 26, BUN 8, creatinine 0.8. Liver function tests unremarkable. Alkaline phosphatase elevated to 199. TSH of 1.2. Urinalysis: Trace esterase, trace squamous epithelial cells. Carbamazepine level of 8.0. ASSESSMENT AND PLAN: 1. A 48-year-old unfortunate female with history of relapsing multiple sclerosis coming in requesting hospice. The patient stated that she spoke with her neurologist and was told that there are not many options available for treatment of her multiple sclerosis. She had been getting progressively weaker and more dependent on her caretakers in the past several months. At this point , the patient feels that she is unable to take care of herself at home and she is requesting to be admitted to the hospital. The patient is going to be placed under alf admission as mentioned above. Both her and her healthcare proxy agreed to the financial consequences of such. They requested palliative care consult. The patient is going to be placed on comfort care orders. Within those, Humera wanted for the patient to be continued on her antispasmodic mediations, anti- anxiety mediations, and her psychiatric medications. They were not interested in Synthroid. We will place the patient on comfort care orders. New do not resuscitate order was signed. The patient requested to be do not resuscitate, do not intubate, comfort care orders, no IV fluids as well as evaluate the limitation of using antibiotics. The patient also is not to have feeding tube in the future. 2. In regards to the patient's DVT prophylaxis, not applicable in this patient with comfort care only orders. TIME SPENT: Approximately 75 minutes was spent on admission of this patient, more than half that time was spent in counseling and coordination of care face- to-face with the patient. [id number]/[facility] #: [id number] SHIRA
[2019-05-28] MEDS: Baclofen TAB* 20 MG PO SCH (21:02)
[2019-05-28] MEDS: Lithium Carbonate ER* 450 MG TAB.ER PO SCH (21:02)
[2019-05-28] MEDS: Oxybutynin XL TAB* 5 MG PO SCH (21:03)
[2019-05-29] MEDS: LORazepam TAB(*) 1 MG PO PRN ×2 (00:13→16:20)
[2019-05-29] MEDS: Pantoprazole TAB * 40 MG TAB PO SCH (08:10)
[2019-05-29] MEDS: MIRABEGRON 50 MG PO SCH (08:10)
[2019-05-29] MEDS: Oxybutynin TAB* 5 MG PO SCH (08:10)
[2019-05-29] MEDS: CMCS:Vilazodone (NF) 40 MG TAB PO SCH (08:10)
[2019-05-29] MEDS: Baclofen TAB* 20 MG PO SCH ×2 (08:10→21:11)
[2019-05-29] MEDS: carBAMazepine CHEW TAB(*) 100 MG PO SCH (08:10)
[2019-05-29] MEDS: Diazepam TAB(*) 5 MG PO PRN (08:58)
[2019-05-29] MEDS: oxyCODONE TAB* 5 MG TAB PO PRN (13:08)
[2019-05-29] MEDS: Oxybutynin XL TAB* 5 MG PO SCH (16:20)
[2019-05-29] MEDS: Morphine ORAL CONCENTRATE* 5 MG/0.25 ML ORAL.SYRIN SL PRN ×3 (17:39→23:16)
[2019-05-29] MEDS: Lithium Carbonate ER* 450 MG TAB.ER PO SCH (21:12)
[2019-05-30] MEDS: oxyCODONE TAB* 5 MG TAB PO PRN (03:57)
[2019-05-30] MEDS: Baclofen TAB* 20 MG PO SCH ×2 (08:09→20:29)
[2019-05-30] MEDS: CMCS:Vilazodone (NF) 40 MG TAB PO SCH (08:09)
[2019-05-30] MEDS: Oxybutynin TAB* 5 MG PO SCH (08:10)
[2019-05-30] MEDS: carBAMazepine CHEW TAB(*) 100 MG PO SCH (08:10)
[2019-05-30] MEDS: MIRABEGRON 50 MG PO SCH (08:10)
[2019-05-30] MEDS: Pantoprazole TAB * 40 MG TAB PO SCH (08:10)
[2019-05-30] MEDS: Morphine ORAL CONCENTRATE* 5 MG/0.25 ML ORAL.SYRIN SL PRN ×5 (08:26→20:33)
--- NOTE | 2019-05-30 13:08 | CONSULT ---
Palliative / Hospice Consult Ordering Provider: Kelley High - [facility]eral Reason: Aftercare/no bowel meds/MS prn - Subjective Code Status: DNR Advance Directives Location: In Chart MOLST Part A Completed: Yes - on chart MOLST Part E Completed:: Yes - on chart - History or Present Illness History or Present Illness: 48yo female with relapsing MS presents to ER with slurred speech. PMH is significant for depression, h/o L femoral DVT, h/o myositis, obstructive sleep apnea on CPAP, seizures secondary to medication, chronic low back pain and migraines. PSHx pt is from her partner Humera who is her HCP, they have a 12yo son, no tob, no drugs and ex heavy etoh user. Studies CXR no acute findings, H/H 14.9/45, BUN/Cr 8/.8, egfr 76.2, alb 4.2 and UC neg. Pt admitted under fpc care because unable to continue care at home. In the last year pt has been to ER 4 times and hospitalized 06/27-06/30/2018 for new onset seizures, 07/05-07/09/2018 for fatigue, 11/03-11/05/2018 for weakness and 04/05-04/06 for fpc care. All history is from pt, Humera and medical records. Lab Values: Laboratory Last Values WBC 6.4 10^3/uL (3.5-10.8) 05/28/19 15:29 RBC 4.96 10^6 /uL (3.70-4.87) H 05/28/19 15:29 Hgb 14.9 g/dL (12.0-16.0) 05/28/19 15:29 Hct 45 % (35-47) 05/28/19 15:29 MCV 91 fL (80-97) 05/28/19 15:29 MCH 30 pg (27-31) 05/28/19 15:29 MCHC 33 g/dL (31-36) 05/28/19 15:29 RDW 15 % (10-15) 05/28/19 15:29 Plt Count 271 10^3/uL (150-450) 05/28/19 15:29 MPV 7.9 fL (7.4-10.4) 05/28/19 15:29 Neut % (Auto) 67.5 % 05/28/19 15:29 Lymph % (Auto) 18.9 % 05/28/19 15:29 [place] % (Auto) 13.1 % 05/28/19 15:29 Eos % (Auto) 0.0 % 05/28/19 15:29 Baso % (Auto) 0.5 % 05/28/19 15:29 Absolute Neuts (auto) 4.3 10^3/ul (1.5-7.7) 05/28/19 15:29 Absolute Lymphs (auto) 1.2 10^3/ul (1.0-4.8) 05/28/19 15:29 Absolute Monos (auto) 0.8 10^3/ul (0-0.8) 05/28/19 15:29 Absolute Eos (auto) 0.0 10^3/ul (0-0.6) 05/28/19 15:29 Absolute Basos (auto) 0.0 10^3/ul (0-0.2) 05/28/19 15:29 Absolute Nucleated RBC 0.0 10^3/ul 05/28/19 15:29 Nucleated RBC % 0.1 05/28/19 15:29 Sodium 141 mmol/L (135-145) 05/28/19 15:29 Potassium 4.1 mmol/L (3.5-5.0) 05/28/19 15:29 Chloride 106 mmol/L (101-111) 05/28/19 15:29 Carbon Dioxide 26 mmol/L (22-32) 05/28/19 15:29 Anion Gap 9 mmol/L (2-11) 05/28/19 15:29 BUN 8 mg/dL (6-24) 05/28/19 15:29 Creatinine 0.80 mg/dL (0.51-0.95) 05/28/19 15:29 Est GFR ( Amer) 92.2 (>60) 05/28/19 15:29 Est GFR (Non-Af Amer) 76.2 (>60) 05/28/19 15:29 BUN/Creatinine Ratio 10.0 (8-20) 05/28/19 15:29 Glucose 98 mg/dL (70-100) 05/28/19 15:29 Calcium 9.9 mg/dL (8.6-10.3) 05/28/19 15:29 Total Bilirubin 0.50 mg/dL (0.2-1.0) 05/28/19 15:29 AST 36 U/L (13-39) 05/28/19 15:29 ALT 30 U/L (7-52) 05/28/19 15:29 Alkaline Phosphatase 199 U/L (34-104) H 05/28/19 15:29 Total Protein 6.9 g/dL (6.4-8.9) 05/28/19 15:29 Albumin 4.2 g/dL (3.2-5.2) 05/28/19 15:29 Globulin 2.7 g/dL (2-4) 05/28/19 15: Albumin/Globulin Ratio 1.6 (1-3) 05/28/19 15:29 TSH 1.20 mcIU/mL (0.34-5.60) 05/28/19 15:29 Urine Color Straw 05/28/19 14:50 Urine Appearance Clear 05/28/19 14:50 Urine pH 7.0 (5-9) 05/28/19 14:50 Ur Specific [place] 1.006 (1.010-1.030) L 05/28/19 14:50 Urine Protein Negative (Negative) 05/28/19 14:50 Urine Ketones Negative (Negative) 05/28/19 14:50 Urine Blood Negative (Negative) 05/28/19 14:50 Urine Nitrate Negative (Negative) 05/28/19 14:50 Urine Bilirubin Negative (Negative) 05/28/19 14:50 Urine Urobilinogen Negative (Negative) 05/28/19 14:50 Ur Leukocyte Esterase Trace (Negative) A 05/28/19 14:50 Urine WBC (Auto) Trace(0-5/hpf) (Absent) 05/28/19 14:50 Urine RBC (Auto) Absent (Absent) 05/28/19 14:50 Ur Squamous Epith Cells Present (Absent) A 05/28/19 14:50 Urine Bacteria Absent (Absent) 05/28/19 14:50 Urine Glucose Negative (Negative) 05/28/19 14:50 Urine Ascorbic Acid * (Negative) A 05/28/19 14:50 Carbamazepine 8.0 mcg/mL (4.0-12.0) 05/28/19 15:29 - Objective Active Medications: Acetaminophen (Tylenol Tab*) 650 mg PO Q4H PRN PRN Reason: PAIN-MILD/TEMP >/= 100.4 Baclofen (Lioresal Tab*) 20 mg PO BID [facility] Last Admin: 05/30/19 08:09 Dose: 20 mg Carbamazepine (Tegretol Chew Tab(*)) 100 mg PO DAILY [facility] Last Admin: 05/30/19 08:10 Dose: 100 mg Diazepam (Valium Tab(*)) 5 mg PO BID PRN PRN Reason: SPASMS - MUSCLE Last Admin: 05/29/19 08:58 Dose: 5 mg Diphenoxylate HCl/Atropine (Lomotil Tab*) 1 tab PO QID PRN PRN Reason: DIARRHEA [place] Carbonate ([place] Carbonate Er Tab*) 900 mg PO BEDTIME [facility]; Protocol Last Admin: 05/29/19 21:12 Dose: 900 mg Lorazepam (Ativan Tab(*)) 1 mg PO Q6H PRN PRN Reason: ANXIETY Last Admin: 05/29/19 16:20 Dose: 1 mg Mirabegron (Myrbetriq (Nf)) 50 mg PO QAM [facility] Last Admin: 05/30/19 08:10 Dose: Not Given Morphine Sulfate (Morphine Oral Concentrate*) 5 mg SL Q2H PRN PRN Reason: comfort Last Admin: 05/30/19 13:01 Dose: 5 mg Ondansetron HCl (Zofran Tab*) 4 mg PO Q6H PRN PRN Reason: NAUSEA/VOMITING Oxybutynin Chloride (Ditropan Tab*) 5 mg PO QAM [facility] Last Admin: 05/30/19 08:10 Dose: 5 mg Oxybutynin Chloride (Ditropan Xl Tab*) 10 mg PO QPM [facility] Last Admin: 05/29/19 16:20 Dose: 10 mg Oxycodone HCl (Roxycodone Tab*) 20 mg PO DAILY PRN PRN Reason: PAIN - MODERATE Last Admin: 05/30/19 03:57 Dose: 20 mg Pantoprazole Sodium (Protonix Tab*) 40 mg PO DAILY [facility] Last Admin: 05/30/19 08:10 Dose: 40 mg Vilazodone HCl (Viibryd (Nf)) 40 mg PO DAILY [facility] Last Admin: 05/30/19 08:09 Dose: 40 mg Vital Signs: Vital Signs: Temp Pulse Resp BP Pulse Ox 82 F 82 18 133/65 98 05/30/19 08:00 05/30/19 08:00 05/30/19 13:01 05/30/19 08:00 05/30/19 08:00 Patient Weight: Weight 74.933 kg Intake and Output: Intake & Output 05/28/19 05/29/19 05/30/19 05/31/19 06:59 06:59 06:59 06:59 Intake Total 240 480 Balance 240 480 Weight 74.933 kg Intake: Oral 240 480 Other: Estimated Void Large Medium # Bowel Movements 0 0 Estimated Stool Amount Small # Voids 1 3 ADLs: Meal Record Start: 05/28/19 19: 16 Freq: DAILY@0900,1400,1800 Status: Active Protocol: Created 05/28/19 19:16 System (Rec: 05/28/19 19:16 System [id number]) Document 05/28/19 21:50 [id number] (Rec: 05/28/19 21:50 [id number] MED-C05) Document 05/29/19 09:00 [id number] (Rec: 05/29/19 13:57 [id number] MED-C09) Document 05/29/19 13:58 [id number] (Rec: 05/29/19 13:59 [id number] MED-C09) Document 05/29/19 17:45 [id number] (Rec: 05/29/19 17:45 [id number] MED-C09) Document 05/30/19 09:00 [id number] (Rec: 05/30/19 10:23 [id number] MED-C09) Intake and Output Start: 05/28/19 14: 04 Freq: Status: Active Protocol: Created 05/28/19 14:04 System (Rec: 05/28/19 14:04 System [id number]) Intake and Output Start: 05/28/19 19: 16 Freq: DAILY@0600,1400,2200 Status: Active Protocol: Created 05/28/19 19:16 System (Rec: 05/28/19 19:16 System [id number]) Document 05/28/19 21:39 [id number] (Rec: 05/28/19 21:40 [id number] MED-C05) Document 12/08/19 06:00 [id number] (Rec: 05/29/19 06:15 [id number] MED-C09) Document 05/29/19 13:58 [id number] (Rec: 05/29/19 13:59 [id number] MED-C09) Document 05/29/19 22:00 [id number] (Rec: 05/30/19 04:15 [id number] MED-C05) Document 05/30/19 05:54 [id number] (Rec: 05/30/19 05:55 [id number] MED-C05) Head: Normal Eyes: No Scleral Icterus Neck: NL Appearance and Movements; NL JVP Cardiovascular: NL Sounds; No Murmurs; No JVD Respiratory: Symmetrical Chest Expansion and Respiratory Effort Abdominal: NL Sounds; No Tenderness; No Distention Neurological: Alert and Oriented x 3 - Assessment Assessment: 48yo female with relapsing MS declining seeking hospice - Plan Consult Plan (MU): Palliative Plan: Long discussion with pt and her HCP Humera, her ex-partner about aftercare. Pt had been living independently at home with the help of some aides, but now her care needs have increased. They are very interested in [facility] but currently there are no beds. Pt's 12yo son is having a difficult time seeing mother so debilitated and visiting when she was at [facility](). They feel the Residence will be more supportive for their son. Pt needs 24hr home health aides which they feel is not financially possible but [facility] still wants to look into it with [facility] who they are using currently and have a hospice referral sent. If she goes on home hospice their goal would be to eventually go to Residence. Their last option is which is pt's most favorite of the local nursing homes with hospice. Pt is unable to self feed, has occasional dysphagia, will eat if someone feeds her, can't ambulate and is incontinent of bladder and bowel. manager lighting aware and will see if they need any durable med supplies. Please add laxative if pt is using morphine. Pt's hospice eligibility would be with diagnosis of relapsing multiple sclerosis declining over last 6 months and September 2018 neurologist felt she had 1 year life expectancy. KPS 40%, PPS 40% - Time On Unit Date of Evaluation: 05/30/19 Hospice Consult Time in: 12:30 Hospice Consult Time Out: 13:30 Hospice Consult Time Total: 60 > 50% of Time Spend In Counseling or Coordinating Care: Yes
[2019-05-30] MEDS: Oxybutynin XL TAB* 5 MG PO SCH (17:30)
[2019-05-30 19:35] LABS: Urine Appearance Turbid; Urine Bilirubin Negative (Negative); Urine Blood 1+ (Negative); Urine Color Yellow; Urine Glucose Negative (Negative); Urine Ketones Negative (Negative); Urine Nitrite Negative (Negative); Urine Protein 2+(100 mg/dL) (Negative); Urine Specific Gravity 1.009 (1.010-1.030); Urine Urobilinogen Negative (Negative)
[2019-05-30 19:42] LABS: Urine Bacteria 1+ (Absent); Urine Red Blood Cell 3+(>10/hpf) (Absent); Urine Transitional Epithelial Present (Absent); Urine White Blood Cell 3+(>20/hpf) (Absent)
[2019-05-30] MEDS: Lithium Carbonate ER* 450 MG TAB.ER PO SCH (20:30)
[2019-05-31] MEDS: oxyCODONE TAB* 5 MG TAB PO PRN (01:31)
[2019-05-31] MEDS: Oxybutynin TAB* 5 MG PO SCH (08:06)
[2019-05-31] MEDS: Baclofen TAB* 20 MG PO SCH ×2 (08:06→20:27)
[2019-05-31] MEDS: MIRABEGRON 50 MG PO SCH (08:07)
[2019-05-31] MEDS: Pantoprazole TAB * 40 MG TAB PO SCH (08:07)
[2019-05-31] MEDS: carBAMazepine CHEW TAB(*) 100 MG PO SCH (08:07)
[2019-05-31] MEDS: CMCS:Vilazodone (NF) 40 MG TAB PO SCH (08:07)
--- NOTE | 2019-05-31 11:54 | PN ---
Progress Note - Progress Note Date of Service: 05/31/19 Note: I spoke to Dr. Lara, the patients neurologist, who says he has not seen the patient in quite some time. He referred her to [facility] neurology clinic where she saw Dr. Vadim Hanna on 02/14/19. There was no mention of limited life expectancy in the [facility] note, and Dr. Lara does not recall telling the patient she had a limited life expectancy. Patients with MS would be expected to develop respiratory failure or dysphagia leading to aspiration pneumonia or cachexia in order to qualify for hospice services. I do not see that the patient has had a swallow evaluation, but there is no evidence of either dysphagia or respiratory failure in the chart, other than her YASMINE. If the patient is discharged home and wishes to avoid hospitalizations, we would be able to enrol her in our PATH program to maintain comfort and support at home with 24/ on-call nursing availability, but at this point her life expectancy is likely to exceed 6 months.
[2019-05-31] MEDS: Oxybutynin XL TAB* 5 MG PO SCH (18:06)
[2019-05-31] MEDS: Lithium Carbonate ER* 450 MG TAB.ER PO SCH (20:27)
[2019-05-31] MEDS: Diazepam TAB(*) 5 MG PO PRN (23:55)
[2019-06-01] MEDS: Baclofen TAB* 20 MG PO SCH ×2 (09:05→21:20)
[2019-06-01] MEDS: Oxybutynin TAB* 5 MG PO SCH (09:05)
[2019-06-01] MEDS: Pantoprazole TAB * 40 MG TAB PO SCH (09:05)
[2019-06-01] MEDS: MIRABEGRON 50 MG PO SCH (09:05)
[2019-06-01] MEDS: CMCS:Vilazodone (NF) 40 MG TAB PO SCH (09:05)
[2019-06-01] MEDS: carBAMazepine CHEW TAB(*) 100 MG PO SCH (09:05)
[2019-06-01] MEDS: oxyCODONE TAB* 5 MG TAB PO PRN (11:53)
[2019-06-01 17:38] VITALS: BP 135/65
[2019-06-01] MEDS: Oxybutynin XL TAB* 5 MG PO SCH (18:18)
[2019-06-01] MEDS ORDERED: Oxybutynin TAB* 5 MG PO SCH (21:00)
[2019-06-01] MEDS: Lithium Carbonate ER* 450 MG TAB.ER PO SCH (21:19)
[2019-06-01] MEDS: Diazepam TAB(*) 5 MG PO PRN (21:20)
[2019-06-02] MEDS: Morphine ORAL CONCENTRATE* 5 MG/0.25 ML ORAL.SYRIN SL PRN ×2 (08:05→12:50)
[2019-06-02] MEDS: Oxybutynin TAB* 5 MG PO SCH (08:07)
[2019-06-02] MEDS: carBAMazepine CHEW TAB(*) 100 MG PO SCH (08:07)
[2019-06-02] MEDS: Baclofen TAB* 20 MG PO SCH (08:07)
[2019-06-02] MEDS: MIRABEGRON 50 MG PO SCH (08:07)
[2019-06-02] MEDS: Pantoprazole TAB * 40 MG TAB PO SCH (08:07)
[2019-06-02] MEDS: CMCS:Vilazodone (NF) 40 MG TAB PO SCH (08:07)
--- NOTE | 2019-06-02 16:12 | DS ---
CC: Dr. Chandler; Dr. Lara, Neurology; Dr. Linder; Dr. Wanda Jade; Dr. Zahra Garcia * DISCHARGE SUMMARY: DATE OF ADMISSION: 05/28/19 DATE OF DISCHARGE: 06/02/19 PRIMARY CARE PROVIDER: Dr. Chandler. DISPOSITION AT DISCHARGE: Home. CONDITION AT DISCHARGE: Stable. DISCHARGE DIAGNOSES: 1. Need for comfort care, worsening functional capacity. 2. Status post Forde placement for comfort. SECONDARY DIAGNOSES: 1. History of multiple sclerosis with generalized weakness, episodes of optic neuritis in the past and chronic urinary incontinence. 2. Depression. 3. Asthma. 4. Migraines. 5. History of provoked left femoral deep venous thrombosis in the past. 6. History of myositis. 7. Obstructive sleep apnea, on CPAP. 8. Seizure disorder thought to be secondary to one of the medications for multiple sclerosis. 9. Chronic low back pain. 10. Status post breast reduction in the past. MEDICATIONS AT DISCHARGE: Unchanged from admission and include: 1. Amantadine 100 mg b.i.d. 2. Baclofen 1 tablet b.i.d. p.r.n. 3. Rexulti 1 tablet daily. 4. Tegretol 100 mg daily. 5. Valium 5 mg b.i.d. p.r.n. 6. Lomotil 1 tablet up to 4 times a day p.r.n. 7. Synthroid 75 mcg daily. 8. [place] 900 mg at bedtime. 9. Mirabegron 50 mg daily. 10. Morphine extended release 15 mg q.a.m. p.r.n. 11. Omeprazole 20 mg daily. 12. Zofran 4 mg every 6 hours p.r.n. 13. Ditropan 5 mg in the a.m. 14. Ditropan XL 10 mg q.p.m. 15. Ditropan IR 10 mg q.p.m. 16. Oxycodone 20 mg daily p.r.n. 17. Vilazodone 40 mg daily. HOSPITALIZATION COURSE: Karla Cisneros is a 48-year-old female who has advanced MS and she presented to the hospital stating that she does not have enough help at home and she would like to be on hospice and comfort care. She was admitted for residential care for comfort care. Subsequently to that, the patient was seen by both Dr. Garcia and Dr. Wanda Jade from Palliative Care. The patient was deemed not to be a hospice candidate due to no evidence of dysphagia , malnutrition, or respiratory compromise. At this point, the patient spent most of her days in the hospital arranging with our social workers and shoe parts caser care at home. She has increased her hire aides at home and she is able to go today with the help of her family in addition. Throughout her hospital stay, the patient continued to have problems with urinary incontinence and she requested a Forde catheter to be placed prior to discharge, which is already in. PHYSICAL EXAMINATION: At the time of discharge, blood pressure of 135/65, heart rate of 82 and regular, respiratory rate 16, oxygen saturation 90% on room air, temperature 98.0. General: The patient is a pleasant 48-year-old female, who is in no acute distress. The patient is alert and oriented x3. HEENT: Head: Atraumatic, normocephalic. Eyes: Pupils are equal, reactive to light and accommodation. Oropharynx is clear. Mucosa moist. Neck: Supple. No JVD. No bruits bilaterally. Cardiovascular: Regular rate and rhythm. No murmur. Respiratory: Clear to auscultation bilaterally. Abdomen: Soft, nontender. Bowel sounds are present in all 4 quadrants. Extremities: There is no edema. Pulses are +2 bilaterally. No clubbing or cyanosis. On neuro evaluation, the patient has generalized weakness 4/5 in bilateral upper extremities and 3+/5 in bilateral lower extremities. Sensation is diminished on the right side and which is chronic for this patient. The patient is going to be discharged today to home with the help of hired aides and her family. The recommendations for the patient to follow up with set up PATH program as well as the patient's primary care provider in 4 to 7 days after discharge. Please note that this is a short summary of the patient's hospital stay. Please refer to further medical records for details. TIME SPENT: Approximately 32 minutes was spent on the patient's discharge. [id number]/[facility] #: [id number] SHIRA
== END 2019-06-02 13:00 | disposition home health service (06) | DRG 59 ==
LOC: ED 14:01 → MED 17:23
PROVIDERS: ADMIT Internal Medicine; ATTEND Internal Medicine
PROC: 0T9B70Z Drainage of Bladder with Drainage Device, Via Natural or Artificial Opening (ICD-10-PCS; principal; 2019-06-01)
DX: G35 Multiple sclerosis (principal); G40.802 Other epilepsy, not intractable, without status epilepticus; F32.9 Major depressive disorder, single episode, unspecified; Z66 Do not resuscitate; G47.33 Obstructive sleep apnea (adult) (pediatric); G89.29 Other chronic pain; J45.909 Unspecified asthma, uncomplicated; M17.0 Bilateral primary osteoarthritis of knee; K21.9 Gastro-esophageal reflux disease without esophagitis; M19.041 Primary osteoarthritis, right hand; F41.9 Anxiety disorder, unspecified; M54.5 Low back pain; E03.9 Hypothyroidism, unspecified; Z51.5 Encounter for palliative care; R32 Unspecified urinary incontinence; G43.909 Migraine, unspecified, not intractable, without status migrainosus; Z28.21 Immunization not carried out because of patient refusal; Z88.2 Allergy status to sulfonamides; Z88.0 Allergy status to penicillin; Z88.8 Allergy status to other drugs, medicaments and biological substances; Z86.718 Personal history of other venous thrombosis and embolism; Z91.030 Bee allergy status; Z91.018 Allergy to other foods; Z86.711 Personal history of pulmonary embolism; Z87.891 Personal history of nicotine dependence; Z79.890 Hormone replacement therapy; Z79.899 Other long term (current) drug therapy
CPT/HCPCS: 36415; 71045; 80053; 80156; 81003; 81015; 84443; 85025; 87077; 87086; 87186; 99284; A9270-GY

== ENCOUNTER 2019-06-04 10:32 | Inpatient (IN) | payer MEDICARE ==
--- NOTE | 2019-06-04 10:49 | ED ---
Neurological HPI - HPI Summary HPI Summary: This patient is a 48 year old female with a Hx of MS brought in by EMS presenting to [facility] with a chief complaint of increased weakness and slurred speech since this morning. She tried to get up our of bed and was unable to. She recently has stopped walking in this stage of her MS but prior to this she would ambulate normally. Even with the inability to ambulate, she feels increased weakness today. Dr. Lara, Neurology, manages her condition and has an appointment in 2 weeks. - History of Current Complaint Chief Complaint: EDGeneral Stated Complaint: INCREASED LETHARGY PER EMS Time Seen by Provider: 06/04/19 10:47 Hx Obtained From: Patient Onset/Duration: Started hours ago Pain Intensity: 9 Pain Scale Used: 0-10 Numeric Associated Signs and Symptoms: Positive: Weakness - Additional Pertinent History Primary Care Physician: [id number] - Allergy/Home Medications Allergies/Adverse Reactions: Allergies Allergy/AdvReac Type Severity Reaction Status Date / Time bee venom protein (honey bee) Allergy Severe See Comment Verified 06/04/19 10:43 onion Allergy Severe See Comment Verified 06/04/19 10:43 Sulfa (Sulfonamide Allergy Severe Unknown Verified 06/04/19 10:43 Antibiotics) Reaction Details aspirin Allergy Intermediate Nausea Verified 06/04/19 10:43 Penicillins Allergy Intermediate See Comment Verified 06/04/19 10:43 [place] And Derivatives Allergy Unknown See Comment Verified 06/04/19 10:43 erythromycin base Allergy Unknown Verified 06/04/19 10:43 Reaction Details PMH/Surg Hx/FS Hx/Imm Hx Endocrine/Hematology History: Reports: Hx Thyroid Disease Denies: Hx Diabetes, Hx Anemia, Hx Unexplained Bleeding, Other Endocrine/ Hematological Disorders Cardiovascular History: Denies: Hx Aneurysm, Hx Angina, Hx Angioplasty, Hx Auto Implanted Cardiovert Defib, Hx Cardiac Arrest, Hx Cardiomegaly, Hx Congenital Heart Disease, Hx Congestive Heart Failure, Hx Coronary Artery Disease, Hx Deep Vein Thrombosis, Hx Embolism, Hx Hypercholesterolemia, Hx Hypotension, Hx Hypertension, Hx Pacemaker/ICD, Hx Peripheral Vascular Disease, Hx Rheumatic Fever, Hx Syncope, Hx Valvular Heart Disease, Other Cardiovascular Problems/Disorders Respiratory History: Reports: Hx Asthma - as a child, Hx Pulmonary Embolism, Hx Sleep Apnea Denies: Hx Chronic Bronchitis, Hx Chronic Obstructive Pulmonary Disease (COPD ), Hx Cystic Fibrosis, Hx Lung Cancer, Hx Pleural Effusion, Hx Pneumonia, Hx Pulmonary Edema, Hx Seasonal Allergies, Other Respiratory Problems/Disorders GI History: Reports: Hx Gastroesophageal Reflux Disease, Hx Ulcer Denies: Hx Gastrointestinal Bleed, Hx Hiatal Hernia History: Reports: Other Problems/Disorders - urinary incontinence Denies: Hx Dialysis, Hx Kidney Stones, Hx Renal Disease Musculoskeletal History: Reports: Hx Arthritis - knees, right hand, Hx Back Problems, Other Musculoskeletal History - MS Denies: Hx Bursitis, Hx Congenital Bone Abnormalities, Hx Fibromyalgia, Hx Gout, Hx Orthopedic Injury, Hx Osteoporosis, Hx Scoliosis, Hx Tendonitis Sensory History: Reports: Hx Contacts or Glasses, Other Sensory Impairments - Numbness in feet Denies: Hx Cataracts, Hx Eye Injury, Hx Eye Prosthesis, Hx Glaucoma, Hx Legally Blind, Hx Macular Degeneration, Hx Vision Problem, Hx Deafness, Hx Hearing Aid, Hx Hearing Problem Opthamlomology History: Reports: Hx Contacts or Glasses, Other Sensory Impairments - Numbness in feet Denies: Hx Cataracts, Hx Eye Injury, Hx Eye Prosthesis, Hx Glaucoma, Hx Legally Blind, Hx Macular Degeneration, Hx Vision Problem Neurological History: Reports: Hx Headaches, Hx Migraine, Hx Nerve Disease, Hx Seizures, Other Neuro Impairments/Disorders - MS Denies: Hx Dementia, Hx Developmental Delay, Hx Spinal Cord Injury, Hx Transient Ischemic Attacks (TIA) Psychiatric History: Reports: Hx Anxiety, Hx Depression, Hx Suicide Attempt, Hx Substance Abuse Denies: Hx Attention Deficit Hyperactivity Disorder, Hx Eating Disorder, Hx Panic Disorder, Hx Post Traumatic Stress Disorder, Hx Inpatient Treatment, Hx Community Mental Health Tx, Hx Schizophrenia, Hx Bipolar Disorder, Hx of Violent Episodes Against Others, Other Psychiatric Issues/Disorders - Cancer History Hx Chemotherapy: Yes - For MS Hx Radiation Therapy: No - Surgical History Surgery Procedure, Year, and Place: BREAST REDUCTION 2005, oral surgeries Hx Anesthesia Reactions: No - Immunization History Date of Tetanus Vaccine: Unknown Date of Influenza Vaccine: Unk re: Fall 2014 Infectious Disease History: No Infectious Disease History: Denies: Hx Clostridium Difficile, Hx Hepatitis, Hx Human Immunodeficiency Virus (HIV), Hx of Known/Suspected MRSA, Hx Shingles, Hx Tuberculosis, Hx Known/ Suspected VRE, Hx Known/Suspected VRSA, History Other Infectious Disease, Traveled Outside the [place] in Last 30 Days - Family History Known Family History: Positive: Cardiac Disease - Father, Diabetes Family History: FHx of spina bifida - Social History Alcohol Use: None 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 GENERAL: Patient is a well-developed and nourished MALE who is lying comfortable in the stretcher. Patient is not in any acute respiratory distress. HEAD AND FACE: No signs of trauma. No ecchymosis, hematomas or skull depressions. No sinus tenderness. EYES: PERRLA, EOMI x 2, No injected conjunctiva, no nystagmus. No photophobia. EARS: Hearing grossly intact. Ear canals and tympanic membranes are within normal limits. MOUTH: Oropharynx within normal limits. NECK: Supple, trachea is midline, no adenopathy, no JVD, no carotid bruit, no c- spine tenderness, neck with full ROM. No meningeal signs, no Kernig's or brudzinskis signs. CHEST: Symmetric, no tenderness at palpation. LUNGS: Clear to auscultation bilaterally. No wheezing or crackles. CVS: Regular rate and rhythm, S1 and S2 present, no murmurs or gallops appreciated. ABDOMEN: Soft, non-tender. No signs of distention. No rebound, no guarding, and no masses palpated. Bowel sounds are normal. EXTREMITIES: FROM in all major joints, no edema, no cyanosis or clubbing. NEURO: Alert and oriented x 3. No slurred speech but slow speech. Diffuse weakness in the extremities but she is able to move them. SKIN: Dry and warm. GCS: 15 Triage Information Reviewed: Yes Vital Signs On Initial Exam: Initial Vitals Temp Pulse Resp BP Pulse Ox 98.3 F 80 16 129/66 99 06/04/19 10:39 06/04/19 10:39 06/04/19 10:39 06/04/19 10:39 06/04/19 10:39 Vital Signs Reviewed: Yes Procedures - Sedation Patient Received Moderate/Deep Sedation with Procedure: No Diagnostics - Vital Signs Vital Signs Temp Pulse Resp BP Pulse Ox 06/04/19 10:39 98.3 F 80 16 129/66 99 - Laboratory Result Diagrams: 06/04/19 12:23 06/04/19 12:23 Lab Statement: Any lab studies that have been ordered have been reviewed, and results considered in the medical decision making process. - Radiology CXR Radiology Interpretation Completed By: Radiologist Summary of Radiographic Findings: No radiographic evidence for acute cardiopulmonary abnormality on this portable chest x-ray. ED Provider has reviewed this report. - CT Brain CT Interpretation Completed By: Radiologist Summary of CT Findings: CT findings are consistent wiht chronic microvascular disease similar in appearance to prior CTs of the brain. There is no definite CT apparent acute intracranial abnormality. ED Provider has reviewed this report. - EKG 1114 Cardiac Rate: NL - 74 BPM EKG Rhythm: Sinus Rhythm EKG Comparison: No Significant Change Summary of EKG Findings: No ST elevations. ED Physician has reviewed and interpreted this EKG. Course/Dx - Course Assessment/Plan: This patient is a 48 year old female with a Hx of MS brought in by EMS presenting to [facility] with a chief complaint of increased weakness and slurred speech since this morning. She tried to get up out of bed and was unable to. She recently has stopped walking in this stage of her MS but prior to this she would ambulate normally. Even with the inability to ambulate, she feels increased weakness today. Dr. Lara, Neurology, manages her condition and has an appointment in 2 weeks. Blood work without any significant abnormality. Chest x-ray impression: No acute pathology. Head CT impression is no acute findings. Positive chronic findings. I discussed the case with Dr. Lara from neurology who knows the patient very well and he reports Discussed with the patient that his no other treatments taking off from the neurology aspect. They Offered to place the patient in a half-way. However the patient declines. At this point the patient reports that she is ready to go to a half-way. I discuss my physical exam and test results with Dr. Jacobo from the hospitalist services and he agrees to admit the patient to his services. The patient is hemodynamically stable alert and oriented x 3. - Diagnoses Provider Diagnoses: Multiple sclerosis - Physician Notifications Discussed Care Of Patient With: Deo Lara - Neurology Time Discussed With Above Provider: 13:30 - Aggressive treatments already have been tried to no success and there is nothing left they can do for her. Patient did not qualify palliative care and was offered home care. Patient took the home care and now is back. Discharge ED - Sign-Out/Discharge Documenting (check all that apply): Patient Departure - Admission, accepted by Dr. Todd, Hospitalist - Discharge Plan Condition: Stable Disposition: ADMITTED TO [facility] - Billing Disposition and Condition Condition: STABLE Disposition: Admitted to [facility] - Attestation Statements Document Initiated by Cassiae: Yes Documenting Scribe: Fabian Cr Provider For Whom Polly is Documenting (Include Credential): Kevin Logan MD Scribe Attestation: I, Fabian Cr, scribed for Kevin Logan MD on 06/04/19 at 1830. Scribe Documentation Reviewed: Yes Provider Attestation: The documentation as recorded by the scribeFabian accurately reflects the service I personally performed and the decisions made by me, Kevin Logan MD Status of Scribe Document: Viewed
[2019-06-04 12:14] LABS: Urine Appearance Cloudy; Urine Bilirubin Negative (Negative); Urine Blood 1+ (Negative); Urine Color Straw; Urine Glucose Negative (Negative); Urine Ketones Negative (Negative); Urine Nitrite Negative (Negative); Urine Protein Negative (Negative); Urine Specific Gravity 1.004 (1.010-1.030); Urine Urobilinogen Negative (Negative)
[2019-06-04 12:16] LABS: Urine Bacteria 1+ (Absent); Urine Red Blood Cell Trace(0-2/hpf) (Absent); Urine Squamous Epithelial Cell Present (Absent); Urine White Blood Cell 3+(>20/hpf) (Absent)
[2019-06-04 12:45] LABS: ABS Lymphocytes 1.2 10^3/ul (1.0-4.8); ABS Monocytes 0.6 10^3/ul (0-0.8); Hematocrit 43 % (35-47); Hemoglobin 14.4 g/dL (12.0-16.0); Lymphocyte % 20.1 %; Mean Corpuscular HGB Conc 33 g/dL (31-36); Mean Corpuscular Hemoglobin 30 pg (27-31); Mean Corpuscular Volume 91 fL (80-97); Mean Platelet Volume 8.3 fL (7.4-10.4); Platelet Count 299 10^3/uL (150-450); Red Blood Count 4.75 10^6 /uL (3.70-4.87); Red Cell Distribution Width 16 % (10-15); White Blood Count 5.8 10^3/uL (3.5-10.8)
[2019-06-04 13:07] LABS: Alcohol < 10 mg/dL (<10)
[2019-06-04 13:18] LABS: Albumin 4.2 g/dL (3.2-5.2); Anion Gap 11 mmol/L (2-11); CO2 Carbon Dioxide 23 mmol/L (22-32); Calcium 9.7 mg/dL (8.6-10.3); Chloride 106 mmol/L (101-111); Magnesium 2.1 mg/dL (1.9-2.7); Sodium 140 mmol/L (135-145)
[2019-06-04 13:20] LABS: TSH (Thyroid Stimulating Horm) 6.95 mcIU/mL (0.34-5.60)
[2019-06-04 13:24] LABS: ALT 18 U/L (7-52); Alkaline Phosphatase 198 U/L (34-104); BUN/Creatinine Ratio 7.8 (8-20); Blood Urea Nitrogen 6 mg/dL (6-24); EGFR African American 96.4 (>60); EGFR Non-African American 79.7 (>60); Glucose 90 mg/dL (70-100)
--- OUTSIDE RECORDS SUMMARY | 2019-06-04 13:35 | XMS REPORT ---
:1970 Author Organization [facility] Care Team Providers Name Role Phone Unavailable Unavailable Unavailable Problems This patient has no known problems. Allergies, Adverse Reactions, Alerts Allergy Name Allergy Status Severity Reaction(s) Onset Inactive Treating Comments Type Date Date Clinician Bactrim Medication Active Unknown Reaction 2017- Yuridia White Name ID Unknown 8-22 Bees Unknown Active Unknown Reaction 2017- Yuridia White Unknown 8-22 onion Base Active Unknown Reaction 2017- Yuridia White Ingredient Unknown 8-22 [place] Unknown Active Unknown Reaction 2018- Yuridia White Unknown 8-22 Penicillins Allergen Active Unknown Reaction 2018- Yuridia White Group Unknown 8-22 aspirin Base Active Unknown Reaction 2018- Yuridia White Ingredient Unknown 8-22 Sulfa Allergen Active Unknown Reaction 2018- Yuridia White (Sulfonamide Group Unknown 0-26 Antibiotics) Medications Ordered Filled Start Stop Current Ordering Indication Dosage Frequency Signature Comments Components Medication Medication Date Date Medication? Clinician (SIG) Name Name No Known No Known No None None None Medications Medications For This For This Patient Patient Procedures This patient has no known procedures. Results This patient has no known results.
[2019-06-04] MEDS ORDERED: Diphenoxylat/Atrop 2.5-0.025M* 1 TAB PO PRN (15:09)
[2019-06-04] MEDS ORDERED: Morphine TAB Extended Release (*) 30 MG TAB.ER PO PRN (15:09)
[2019-06-04] MEDS ORDERED: Ondansetron TAB* 4 MG PO PRN (15:09)
[2019-06-04] MEDS ORDERED: Diazepam TAB(*) 5 MG PO PRN (15:09)
[2019-06-04] MEDS ORDERED: Acetaminophen TAB* 325 MG PO PRN (15:23)
[2019-06-04] MEDS ORDERED: Ondansetron INJ* 2 MG/ML VIAL IV PRN (15:23)
[2019-06-04] MEDS ORDERED: Senna TAB 8.6 mg* TAB PO PRN (15:33)
[2019-06-04] MEDS ORDERED: Docusate CAP* 100 MG PO PRN (15:33)
[2019-06-04] MEDS ORDERED: Polyethylene Glycol 3350* 17 GM PACKET PO PRN (15:33)
[2019-06-04 16:24] LABS: Free T4 0.78 ng/dL (0.61-1.12)
--- NOTE | 2019-06-04 17:14 | HP ---
CC: Dr. Chandler * [facility] MEDICINE HISTORY AND PHYSICAL: DATE OF ADMISSION: 06/04/19 PRIMARY CARE PHYSICIAN: Dr. Chandler ATTENDING PHYSICIAN: Dr. Shanelle Pastor * (dictation provided by Angi Perales NP ) CHIEF COMPLAINT: Weakness and inability to care for herself at home. HISTORY OF PRESENT ILLNESS: Ms. Cisneros is a 48-year-old female with a past medical history of end-stage multiple sclerosis, who presents today to hospital with concern for weakness and inability to care for herself at home. Ms. Cisneros was just discharged from a hospital after a 5-day stay on 06/02/19. The plan at that time was for her to return to home with 24-hour support both from aide services and from family and friends as well as [facility] services. The patient was unable to arrange the 24-hour support that she had anticipated and therefore VNS was unwilling and unable to take her on as it was an unsafe situation. During the last hospitalization, the patient had been thoroughly evaluated for need for hospice but at this point, she does not have the evidence of dysphagia , malnutrition, or respiratory compromise and therefore she did not meet the hospice criteria, however, she was arranged to be set up with the [facility] program at discharge. Since returning home, Ms. Cisneros has not developed any new acute concerns, however, today when she was alone she was unable to stand. She was very weak when trying to stand to pivot to use bathroom and ultimately called the emergency medical services to be brought to the hospital. Ms. Cisneros denies any constipation, diarrhea, nausea, vomiting. She has some mild lower abdominal pain today, only on palpation. She has chronic back pain. She denies chest pain, shortness of breath. She had no visual changes. No headaches. In the emergency room, Ms. Cisneros had vital signs which were normal. She had labs which are unremarkable except for an elevated TSH at 6.95 for which a free T3, T4 are pending. She had a brain CT and chest x-ray that showed no abnormality, as well as an EKG that showed no abnormality as well. PAST MEDICAL HISTORY: 1. End-stage multiple sclerosis. 2. Overactive bladder with Forde placement for comfort. 3. Depression. 4. Asthma. 5. Migraines. 6. History of provoked left femoral DVT in the past. 7. History of myositis. 8. YASMINE, on CPAP. 9. Seizure disorder thought to be secondary to one of the medications for multiple sclerosis. 10. Chronic low back pain. 11. Status post breast reduction in the past. MEDICATIONS: 1. [place] carbonate ER 900 mg p.o. at bedtime. 2. Levothyroxine 75 mcg p.o. q.a.m. 3. Lomotil 2.5/0.025 one tab p.o. 4 times a day p.r.n. 4. Diazepam 5 mg p.o. b.i.d. p.r.n. 5. Rexulti 1 mg p.o. daily. 6. Baclofen 1 tab p.o. b.i.d. 7. Amantadine 100 mg p.o. b.i.d. 8. Carbamazepine 100 mg p.o. daily. 9. Vilazodone 40 mg p.o. daily. 10. Oxycodone 20 mg p.o. daily p.r.n. 11. Oxybutynin XL 10 mg p.o. q.p.m. 12. Oxybutynin IR 5 mg p.o. q.a.m. 13. Ondansetron 4 mg p.o. q.6 hours p.r.n. 14. Omeprazole 20 mg p.o. daily. 15. Morphine tab ER 15 mg p.o. q.a.m. p.r.n. 16. Myrbetriq 50 mg p.o. q.a.m. ALLERGIES: BEE VENOM, ONIONS, SULFA, ASPIRIN, PENICILLIN, CITRUS AND DERIVATIVES and ERYTHROMYCIN BASE. FAMILY HISTORY: Mother at the age of 60 from a heart attack. Father had hyperlipidemia. SOCIAL HISTORY: The patient lives alone and as stated above unable to arrange 24- hour care at home. She denies smoking or drug use. She quit drinking alcohol about 30 years ago. Her surrogate decision maker is her ex-, Humera Lino. REVIEW OF SYSTEMS: A 14-point review of systems was completed with Ms. Cisneros and all those not mentioned above were negative. PHYSICAL EXAMINATION GENERAL: Ms. Cisneros is lying in the bed. She is in no acute distress. VITAL SIGNS: Temperature 98.4, pulse rate 75, respiratory rate 16, O2 saturation 97% on room air, blood pressure 122/77. LUNGS: Clear to auscultation bilaterally with no accessory muscle use and good aeration. HEART: S1, S2. No murmur, rub, or gallop, and regular. ABDOMEN: Soft. There is tenderness along the lower abdomen with palpation. Bowel sounds are positive. There is no rebound, no guarding. EXTREMITIES: No cyanosis, no edema. NEURO: She is alert. She is oriented x3. She moves all extremities equally though very weakly. SKIN: Intact. DIAGNOSTIC STUDIES/LAB DATA: WBC 5.8, hemoglobin 14.4, hematocrit 43, platelet count 299. Sodium 140, potassium 4.0, chloride 106, serum bicarbonate 23, BUN 6, creatinine 0.77, glucose 90, lactic acid 1.5. CRP unable to be performed. TSH 6.95 with free T4, free T3 pending. The patient has 3+ leuk esterase, squamous cells and 1+ bacteria, but she does have an indwelling Forde. Tox screen shows serum alcohol level is less than 10. The CT brain shows "CT findings that is consistent with chronic microvascular disease similar in appearance to the prior CTs of the brain." There is no definite CT apparent acute intracranial abnormality. Chest x-ray shows no radiographic evidence for acute cardiopulmonary abnormality on this portable chest x-ray. The EKG shows sinus rhythm with no evidence of ischemia. ASSESSMENT: Ms. Cisneros is a 48-year-old female with an advanced multiple sclerosis and associated weakness with inability to care for herself at home. Plans are for long-term admission for the followin. Advanced multiple sclerosis: The patient will have supportive care and continue on all home medications. 2. History of overactive bladder: Plan to hold Myrbetriq and Ditropan as the patient has a Forde catheter and likely the symptoms will have no longer be present. I told the patient about this and if she does have symptoms I have asked that she let us know. 3. Hypothyroidism: Plan to check free T3, T4, but in the meantime, we will continue with levothyroxine. 4. History of seizure disorder: Continue lithium. 5. History of chronic pain: Continue morphine and ondansetron with bowel meds. 6. Abdominal pain: The patient has a mild abdominal pain to palpation, but she reports having a bowel movement today and having no nausea or vomiting as well as tolerating all intake well. Plan to check a simple KUB to rule out any constipation or other abnormality. 7. DVT prophylaxis: Heparin subcu. 8. Code status is DNR. TIME SPENT: Approximately 60 minutes was spent on the admission of this patient , more than half the time was spent with the patient at the bedside reviewing the events leading up to this hospitalization, performing the physical examination, and reviewing my plan of care. ANGI PERALES NP [id number]/CPS #: [id number] SHIRA
[2019-06-04] MEDS ORDERED: Oxybutynin XL TAB* 5 MG PO SCH (18:00)
[2019-06-04] MEDS: oxyCODONE TAB* 5 MG TAB PO PRN (18:53)
[2019-06-04] MEDS: Baclofen TAB* 20 MG PO SCH (20:14)
[2019-06-04] MEDS: CMC:Lithium Carbonate ER (NF) 300 MG TAB.ER PO SCH (20:14)
[2019-06-04] MEDS: Amantadine CAP* 100 MG PO SCH (20:14)
[2019-06-04] MEDS: Heparin VIAL(*) 5000 UNITS/ML VIAL (FIVE THOUSAND) SUBCUT SCH (20:14)
[2019-06-04] MEDS: Melatonin 3 MG TAB PO PRN (21:24)
[2019-06-05] MEDS: Heparin VIAL(*) 5000 UNITS/ML VIAL (FIVE THOUSAND) SUBCUT SCH ×3 (05:48→21:51)
[2019-06-05] MEDS: Morphine TAB Extended Release (*) 15 MG TAB.ER PO PRN ×2 (05:49→13:38)
[2019-06-05] MEDS ORDERED: Levothyroxine TAB* 75 MCG TAB PO SCH (06:00)
[2019-06-05] MEDS: Pantoprazole TAB * 40 MG TAB PO SCH (08:09)
[2019-06-05] MEDS: CMC:Vilazodone (NF) 40 MG TAB PO SCH (08:09)
[2019-06-05] MEDS: Baclofen TAB* 20 MG PO SCH ×2 (08:09→19:57)
[2019-06-05] MEDS: Amantadine CAP* 100 MG PO SCH ×2 (08:09→19:57)
[2019-06-05] MEDS: carBAMazepine CHEW TAB(*) 100 MG PO SCH (08:09)
[2019-06-05] MEDS: BREXPIPRAZOLE 1 MG PO SCH (08:10)
[2019-06-05] MEDS ORDERED: Oxybutynin TAB* 5 MG PO SCH (09:00)
--- NOTE | 2019-06-05 13:48 | PN ---
Subjective Date of Service: 06/05/19 Interval History: Patient today is still feeling very diffusely weak. Patient denies excess discomfort above her baseline. Patient has had no issues with her catheter. Patient denies F/C, N/V, abdominal pain, diarrhea, CP, or other pain. Patient does not know why she is not on B12 supplementation and why she was not treated for UTI on previous admission and is interested in being treated for this now. Family History: Unchanged from Admission Social History: Unchanged from Admission Past Medical History: Unchanged from Admission Objective Active Medications: Acetaminophen (Tylenol Tab*) 650 mg PO Q6H PRN PRN Reason: PAIN - MILD Amantadine HCl (Symmetrel Cap*) 100 mg PO BID [facility] Last Admin: 06/05/19 08:09 Dose: 100 mg Baclofen (Lioresal Tab*) 20 mg PO BID [facility] Last Admin: 06/05/19 08:09 Dose: 20 mg Brexpiprazole (Rexulti) 1 mg PO DAILY [facility] Last Admin: 06/05/19 08:10 Dose: Not Given Carbamazepine (Tegretol Chew Tab(*)) 100 mg PO DAILY [facility] Last Admin: 06/05/19 08:09 Dose: 100 mg Cyanocobalamin (Vitamin B12 Tab*) 1,000 mcg PO DAILY [facility] Diazepam (Valium Tab(*)) 5 mg PO BID PRN PRN Reason: SPASMS - MUSCLE Diphenoxylate HCl/Atropine (Lomotil Tab*) 1 tab PO QID PRN PRN Reason: DIARRHEA Docusate Sodium (Colace Cap*) 100 mg PO DAILY PRN PRN Reason: CONSTIPATION Heparin Sodium (Porcine) (Heparin Vial(*)) 5,000 units SUBCUT Q8HR [facility] Last Admin: 06/05/19 05:48 Dose: 5,000 units Heparin Sodium (Porcine) (Heparin Flush Port (Ivad)) 5 ml FLUSH DAILY [facility]; Protocol Ceftriaxone Sodium 1 gm/ (Sodium Chloride) 50 mls @ 100 mls/hr IVPB Q24H [facility] Levothyroxine Sodium (Synthroid Tab*) 88 mcg PO 0600 [facility] [place] Carbonate ([place] Carbonate Er (Nf)) 900 mg PO BEDTIME [facility]; Protocol Last Admin: 06/04/19 20:14 Dose: 900 mg Melatonin (Melatonin) 3 mg PO BEDTIME PRN PRN Reason: SLEEP Last Admin: 06/04/19 21:24 Dose: 3 mg Morphine Sulfate (Ms Contin(*)) 15 mg PO QAM PRN PRN Reason: PAIN - SEVERE Last Admin: 06/05/19 05:49 Dose: 15 mg Ondansetron HCl (Zofran Tab*) 4 mg PO Q6H PRN PRN Reason: NAUSEA/VOMITING Ondansetron HCl (Zofran Inj*) 4 mg IV Q6H PRN PRN Reason: NAUSEA Oxycodone HCl (Roxycodone Tab*) 20 mg PO DAILY PRN PRN Reason: PAIN - MODERATE Last Admin: 06/04/19 18:53 Dose: 20 mg Pantoprazole Sodium (Protonix Tab*) 40 mg PO DAILY [facility] Last Admin: 06/05/19 08:09 Dose: 40 mg Polyethylene Glycol/Electrolytes (Miralax*) 17 gm PO DAILY PRN PRN Reason: CONSTIPATION Senna (Senokot 8.6 Mg Tab*) 1 tab PO BEDTIME PRN PRN Reason: CONSTIPATION Vilazodone HCl (Viibryd (Nf)) 40 mg PO DAILY [facility] Last Admin: 06/05/19 08:09 Dose: 40 mg Vital Signs - 8 hr 06/05/19 06/05/19 06/05/19 05:49 07:35 07:42 Temperature 97.5 F Pulse Rate 76 88 Respiratory 16 19 20 Rate Blood Pressure 109/60 109/60 (mmHg) O2 Sat by Pulse 98 Oximetry 06/05/19 06/05/19 07:50 08:00 Temperature Pulse Rate Respiratory 18 19 Rate Blood Pressure (mmHg) O2 Sat by Pulse Oximetry Oxygen Devices in Use Now: Nasal Cannula Appearance: Patient is a 48yo female who appears stated age and is sitting in the bed in [facility]. Eyes: No Scleral Icterus, PERRLA Ears/Nose/Mouth/Throat: NL Teeth, Lips, Gums, Clear Oropharnyx, Mucous Membranes Moist Neck: NL Appearance and Movements; NL JVP, Trachea Midline Respiratory: Symmetrical Chest Expansion and Respiratory Effort, Clear to Auscultation Cardiovascular: NL Sounds; No Murmurs; No JVD, RRR, No Edema Abdominal: NL Sounds; No Tenderness; No Distention, No Hepatosplenomegaly Lymphatic: No Cervical Adenopathy Extremities: No Edema, No Clubbing, Cyanosis Skin: No Rash or Ulcers, No Nodules or Sclerosis Neurological: - - Nutrition: Malnutrition Diagnosis/Plan Malnutrition Assessment by Registered Dietitian: Malnutrition Assessment Clinical Characteristics Chronic,Moderate Malnutrition Assessment: severe wt loss: 4.2% x 1 week and gradual wt Criteria loss since 2018 <75% EEE x > or = 1 mo Malnutrition Assessment: Monitor intake for adequacy (>75% of meals); Interventions consider supplementation if PO declines Malnutrition Assessment: Goals 1. Intake will be adequate to maintain stable wt without further unintended wt loss (>75% of meals) 2. Pt will tolerate regular textures without difficulty chewing Result Diagrams: 06/04/19 12:23 06/04/19 12:23 Microbiology and Other Data: Microbiology 06/04/19 11:40 Urine Culture - Preliminary Urine Enterococcus Faecalis Assess/Plan/Problems-Billing Assessment: Patient is a 48yo with a PMH for SPMS, Chronic Pain, Frequent UTI, here with weakness and inability to care for herself at home. Patient would found to have a UTI and will be treated. - Patient Problems (1) Weakness Current Visit: No Status: Acute Code(s): R53.1 - WEAKNESS SNOMED Code(s): 81610110 Comment: - Due primarily to MS and then likely additional polypharmacy and UTI - PT/OT - Will need likely placement or other safe discharge plan. (2) Vitamin B12 deficiency Current Visit: No Status: Acute Code(s): E53.8 - DEFICIENCY OF OTHER SPECIFIED B GROUP VITAMINS SNOMED Code(s): 162527261 Comment: - Unclear if patient was ever supplemented fully as previously prescribed - May be contributing to weakness - Resume supplement and check level (3) Multiple sclerosis Current Visit: No Status: Chronic Code(s): G35 - MULTIPLE SCLEROSIS SNOMED Code(s): 85285637 Comment: - Advanced, Secondary progressive and refractory to treatment - Continue symptomatic management for spasms, pain and alertness. (4) Elevated TSH Current Visit: No Status: Acute Code(s): R94.6 - ABNORMAL RESULTS OF THYROID FUNCTION STUDIES SNOMED Code(s): 768636021 Comment: -TSH elevated -Increase synthroid to 88mcg (5) Need for comfort care Current Visit: No Status: Acute Code(s): WSL6095 - SNOMED Code(s): 083475881 Comment: - Will discuss appropriateness of treatments for goals fo care on an ongoing basis. (6) Seizure Current Visit: No Status: Acute Priority: High Code(s): R56.9 - UNSPECIFIED CONVULSIONS SNOMED Code(s): 85759665 Comment: - Stabilized on Tegretol - Avoid seizure provoking agents. (7) UTI (urinary tract infection) Current Visit: No Status: Acute Priority: High Onset Date: 04/14/14 Comment: - UA positive and previous untreated UTI from previous admission - Treat for Enterococcus and Aeromonas with Ceftriaxone. (8) YASMINE (obstructive sleep apnea) Current Visit: No Status: Chronic Code(s): G47.33 - OBSTRUCTIVE SLEEP APNEA (ADULT) (PEDIATRIC) SNOMED Code(s): 25210852 Comment: - Continue CPAP (9) Urinary incontinence Current Visit: No Status: Chronic Code(s): R32 - UNSPECIFIED URINARY INCONTINENCE SNOMED Code(s): 462967106 Comment: - Stop Oxybutinin and Myrbetriq, Forde for comfort (10) DNR (do not resuscitate) Current Visit: No Status: Acute (11) DVT prophylaxis Current Visit: No Status: Acute Priority: Medium Code(s): [id number] - SNOMED Code(s): 328573493 Comment: - History of DVT. - Heparin Sub Q Status and Disposition: Observation pending safe discharge plan.
[2019-06-05] MEDS: cefTRIAXone(*) 1 GM in NS 0.9% 50 ML* 50 ML IVPB SCH (14:39)
[2019-06-05] MEDS: Cyanocobalamin TAB* 500 MCG PO SCH (14:39)
[2019-06-05] MEDS: oxyCODONE TAB* 5 MG TAB PO PRN (19:56)
[2019-06-05] MEDS: CMC:Lithium Carbonate ER (NF) 300 MG TAB.ER PO SCH (19:57)
[2019-06-05] MEDS: Melatonin 3 MG TAB PO PRN (19:57)
[2019-06-06] MEDS: Levothyroxine TAB* 88 MCG TAB PO SCH (05:38)
[2019-06-06] MEDS: Heparin VIAL(*) 5000 UNITS/ML VIAL (FIVE THOUSAND) SUBCUT SCH ×3 (05:38→21:33)
[2019-06-06] MEDS: Amantadine CAP* 100 MG PO SCH ×2 (07:50→19:32)
[2019-06-06] MEDS: Pantoprazole TAB * 40 MG TAB PO SCH (07:50)
[2019-06-06] MEDS: Baclofen TAB* 20 MG PO SCH ×2 (07:50→19:32)
[2019-06-06] MEDS: CMC:Vilazodone (NF) 40 MG TAB PO SCH (07:50)
[2019-06-06] MEDS: Cyanocobalamin TAB* 500 MCG PO SCH (07:51)
[2019-06-06] MEDS: carBAMazepine CHEW TAB(*) 100 MG PO SCH (07:51)
[2019-06-06] MEDS: BREXPIPRAZOLE 1 MG PO SCH (07:55)
[2019-06-06] MEDS: cefTRIAXone(*) 1 GM in NS 0.9% 50 ML* 50 ML IVPB SCH (14:07)
--- NOTE | 2019-06-06 14:46 | PN ---
Subjective Date of Service: 06/06/19 Interval History: Patient feels essentially the same as previous day with diffuse weakness. Patient denies CP, SOB, dizziness, F/C, N/V, or other pain. Patient is constipated, but declines additional laxatives at this time. Family History: Unchanged from Admission Social History: Unchanged from Admission Past Medical History: Unchanged from Admission Objective Active Medications: Acetaminophen (Tylenol Tab*) 650 mg PO Q6H PRN PRN Reason: PAIN - MILD Amantadine HCl (Symmetrel Cap*) 100 mg PO BID [facility] Last Admin: 06/06/19 07:50 Dose: 100 mg Baclofen (Lioresal Tab*) 20 mg PO BID [facility] Last Admin: 06/06/19 07:50 Dose: 20 mg Brexpiprazole (Rexulti) 1 mg PO DAILY [facility] Last Admin: 06/06/19 07:55 Dose: Not Given Carbamazepine (Tegretol Chew Tab(*)) 100 mg PO DAILY [facility] Last Admin: 06/06/19 07:51 Dose: 100 mg Cyanocobalamin (Vitamin B12 Tab*) 1,000 mcg PO DAILY [facility] Last Admin: 06/06/19 07:51 Dose: 1,000 mcg Diazepam (Valium Tab(*)) 5 mg PO BID PRN PRN Reason: SPASMS - MUSCLE Last Admin: 06/05/19 15:55 Dose: 5 mg Diphenoxylate HCl/Atropine (Lomotil Tab*) 1 tab PO QID PRN PRN Reason: DIARRHEA Docusate Sodium (Colace Cap*) 100 mg PO DAILY PRN PRN Reason: CONSTIPATION Heparin Sodium (Porcine) (Heparin Vial(*)) 5,000 units SUBCUT Q8HR [facility] Last Admin: 06/06/19 14:07 Dose: 5,000 units Heparin Sodium (Porcine) (Heparin Flush Port (Ivad)) 5 ml FLUSH DAILY [facility]; Protocol Last Admin: 06/06/19 07:54 Dose: 5 ml Ceftriaxone Sodium 1 gm/ (Sodium Chloride) 50 mls @ 100 mls/hr IVPB Q24H [facility] Last Admin: 06/06/19 14:07 Dose: 100 mls/hr Levothyroxine Sodium (Synthroid Tab*) 88 mcg PO 0600 [facility] Last Admin: 06/06/19 05:38 Dose: 88 mcg [place] Carbonate ([place] Carbonate Er (Nf)) 900 mg PO BEDTIME [facility]; Protocol Last Admin: 06/05/19 19:57 Dose: 900 mg Melatonin (Melatonin) 3 mg PO BEDTIME PRN PRN Reason: SLEEP Last Admin: 06/05/19 19:57 Dose: 3 mg Morphine Sulfate (Ms Contin(*)) 15 mg PO QAM PRN PRN Reason: PAIN - SEVERE Last Admin: 06/05/19 13:38 Dose: 15 mg Ondansetron HCl (Zofran Tab*) 4 mg PO Q6H PRN PRN Reason: NAUSEA/VOMITING Ondansetron HCl (Zofran Inj*) 4 mg IV Q6H PRN PRN Reason: NAUSEA Oxycodone HCl (Roxycodone Tab*) 20 mg PO DAILY PRN PRN Reason: PAIN - MODERATE Last Admin: 06/05/19 19:56 Dose: 20 mg Pantoprazole Sodium (Protonix Tab*) 40 mg PO DAILY [facility] Last Admin: 06/06/19 07:50 Dose: 40 mg Polyethylene Glycol/Electrolytes (Miralax*) 17 gm PO DAILY PRN PRN Reason: CONSTIPATION Senna (Senokot 8.6 Mg Tab*) 1 tab PO BEDTIME PRN PRN Reason: CONSTIPATION Vilazodone HCl (Viibryd (Nf)) 40 mg PO DAILY [facility] Last Admin: 06/06/19 07:50 Dose: 40 mg Vital Signs - 8 hr 06/06/19 06/06/19 07:15 08:00 Temperature 98.1 F Pulse Rate 73 Respiratory 16 16 Rate Blood Pressure 105/56 (mmHg) O2 Sat by Pulse 99 Oximetry Oxygen Devices in Use Now: None, BiPAP Appearance: Patient is a 48yo female who appears stated age and is sitting in the bed in [facility]. Eyes: No Scleral Icterus, PERRLA Ears/Nose/Mouth/Throat: NL Teeth, Lips, Gums, Clear Oropharnyx, Mucous Membranes Moist Neck: NL Appearance and Movements; NL JVP, Trachea Midline Respiratory: Symmetrical Chest Expansion and Respiratory Effort, Clear to Auscultation Cardiovascular: NL Sounds; No Murmurs; No JVD, RRR, No Edema Abdominal: No Hepatosplenomegaly, - - Slight tenderness to deep palpation in LLQ. Lymphatic: No Cervical Adenopathy Extremities: No Edema, No Clubbing, Cyanosis Skin: No Rash or Ulcers Neurological: - - Alert and oriented, slow responses, Exotropia of right eye. Spastic and diffusely weak. Lines/Tubes/Other Access: Clean, Dry and Intact Forde - Nutrition: Malnutrition Diagnosis/Plan Malnutrition Assessment by Registered Dietitian: Malnutrition Assessment Clinical Characteristics Chronic,Moderate Malnutrition Assessment: severe wt loss: 4.2% x 1 week and gradual wt Criteria loss since 2018 <75% EEE x > or = 1 mo Malnutrition Assessment: Monitor intake for adequacy (>75% of meals); Interventions consider supplementation if PO declines Malnutrition Assessment: Goals 1. Intake will be adequate to maintain stable wt without further unintended wt loss (>75% of meals) 2. Pt will tolerate regular textures without difficulty chewing Result Diagrams: 06/04/19 12:23 06/04/19 12:23 Microbiology and Other Data: Microbiology 06/04/19 11:40 Urine Culture - Preliminary Urine Enterococcus Faecalis Assess/Plan/Problems-Billing Assessment: Patient is a 48yo with a PMH for SPMS, Chronic Pain, Frequent UTI, here with weakness and inability to care for herself at home. Patient would found to have a UTI and will be treated. - Patient Problems (1) Weakness Current Visit: No Status: Acute Code(s): R53.1 - WEAKNESS SNOMED Code(s): 13867946 Comment: - Due primarily to MS and then likely additional polypharmacy and UTI - PT/OT - Will need likely placement or other safe discharge plan. (2) Vitamin B12 deficiency Current Visit: No Status: Acute Code(s): E53.8 - DEFICIENCY OF OTHER SPECIFIED B GROUP VITAMINS SNOMED Code(s): 704936672 Comment: - Unclear if patient was ever supplemented fully as previously prescribed - May be contributing to weakness - Resume supplement - No longer deficient. (3) Multiple sclerosis Current Visit: No Status: Chronic Code(s): G35 - MULTIPLE SCLEROSIS SNOMED Code(s): 15785003 Comment: - Advanced, Secondary progressive and refractory to treatment - Continue symptomatic management for spasms, pain and alertness. (4) Elevated TSH Current Visit: No Status: Acute Code(s): R94.6 - ABNORMAL RESULTS OF THYROID FUNCTION STUDIES SNOMED Code(s): 422840682 Comment: -TSH elevated -Increase synthroid to 88mcg (5) Need for comfort care Current Visit: No Status: Acute Code(s): ARJ4885 - SNOMED Code(s): 620140974 Comment: - Will discuss appropriateness of treatments for goals fo care on an ongoing basis. (6) Seizure Current Visit: No Status: Acute Priority: High Code(s): R56.9 - UNSPECIFIED CONVULSIONS SNOMED Code(s): 75963875 Comment: - Stabilized on Tegretol - Avoid seizure provoking agents. (7) UTI (urinary tract infection) Current Visit: No Status: Acute Priority: High Onset Date: 04/14/14 Comment: - UA positive and previous untreated UTI from previous admission - Treat for Enterococcus and Aeromonas with Ceftriaxone. - Change catheter today. (8) YASMINE (obstructive sleep apnea) Current Visit: No Status: Chronic Code(s): G47.33 - OBSTRUCTIVE SLEEP APNEA (ADULT) (PEDIATRIC) SNOMED Code(s): 94743810 Comment: - Continue CPAP (9) Urinary incontinence Current Visit: No Status: Chronic Code(s): R32 - UNSPECIFIED URINARY INCONTINENCE SNOMED Code(s): 099523082 Comment: - Stop Oxybutinin and Myrbetriq, Forde for comfort (10) DNR (do not resuscitate) Current Visit: No Status: Acute (11) DVT prophylaxis Current Visit: No Status: Acute Priority: Medium Code(s): [id number] - SNOMED Code(s): 555958180 Comment: - History of DVT. - Heparin Sub Q Status and Disposition: Observation pending safe discharge plan.
[2019-06-06] MEDS: oxyCODONE TAB* 5 MG TAB PO PRN (19:29)
[2019-06-06] MEDS: CMC:Lithium Carbonate ER (NF) 300 MG TAB.ER PO SCH (19:30)
[2019-06-06 22:25] LABS: Urine Appearance Clear; Urine Bilirubin Negative (Negative); Urine Blood Negative (Negative); Urine Color Straw; Urine Glucose Negative (Negative); Urine Ketones Negative (Negative); Urine Nitrite Negative (Negative); Urine Protein Negative (Negative); Urine Specific Gravity 1.005 (1.010-1.030); Urine Urobilinogen Negative (Negative)
[2019-06-06 22:30] LABS: Urine Bacteria Absent (Absent); Urine Red Blood Cell 1+(3-5/hpf) (Absent); Urine Squamous Epithelial Cell Present (Absent); Urine White Blood Cell 2+(11-20/hpf) (Absent)
[2019-06-06] MEDS: Melatonin 3 MG TAB PO PRN (23:23)
[2019-06-07] MEDS: Levothyroxine TAB* 88 MCG TAB PO SCH (05:43)
[2019-06-07] MEDS: Heparin VIAL(*) 5000 UNITS/ML VIAL (FIVE THOUSAND) SUBCUT SCH ×2 (05:43→15:51)
[2019-06-07] MEDS: CMC:Vilazodone (NF) 40 MG TAB PO SCH (09:35)
[2019-06-07] MEDS: Baclofen TAB* 20 MG PO SCH (09:36)
[2019-06-07] MEDS: Amantadine CAP* 100 MG PO SCH (09:36)
[2019-06-07] MEDS: Cyanocobalamin TAB* 500 MCG PO SCH (09:36)
[2019-06-07] MEDS: Pantoprazole TAB * 40 MG TAB PO SCH (09:36)
[2019-06-07] MEDS: carBAMazepine CHEW TAB(*) 100 MG PO SCH (09:37)
[2019-06-07] MEDS: Morphine TAB Extended Release (*) 15 MG TAB.ER PO PRN (09:37)
[2019-06-07] MEDS: oxyCODONE TAB* 5 MG TAB PO PRN (09:45)
[2019-06-07] MEDS: BREXPIPRAZOLE 1 MG PO SCH (09:54)
[2019-06-07 13:06] VITALS: BP 113/67
[2019-06-07] MEDS: cefTRIAXone(*) 1 GM in NS 0.9% 50 ML* 50 ML IVPB SCH (15:48)
--- NOTE | 2019-06-08 03:50 | DS ---
CC: Dr. Chiki Chandler; [facility] * DISCHARGE SUMMARY: DATE OF ADMISSION: 06/04/19 DATE OF DISCHARGE: 06/07/19 FINAL DISCHARGE DIAGNOSES: 1. Urinary tract infection. 2. Exacerbation of multiple sclerosis secondary to urinary tract infection. 3. Depression. 4. Asthma. 5. Migraine. 6. History of left femoral deep vein thrombosis. 7. Obstructive sleep apnea, on CPAP. 8. History of seizure disorder. HOSPITAL COURSE: The patient presented to [facility] on 06/04/19 for weakness and inability to care for herself at home. This has happened 5 days after her discharge on 06/02/19 complaining at that time of weakness as well. At this time, the patient's urine culture did grow Enterococcus faecalis with positive urinalysis of 3+ wbc's, 3+ leuko esterase and urine culture positive for Enterococcus faecalis, fairly sensitive. She was started on ceftriaxone and she was offered today at [facility]. Therefore, she was seen and evaluated. She was deemed stable for discharge today. PHYSICAL EXAMINATION: Vital Signs: Temperature is 98.1, pulse 73, sating 99%, blood pressure 105/56. General: She is awake, alert, oriented. Pleasant, able to provide history in good sentence. Head and Neck: Normocephalic, atraumatic. Supple. Lungs: Clear to auscultation bilaterally. Cardiovascular : S1, S2. Regular rate and rhythm. Abdomen: Positive bowel sounds. Soft, nontender, nondistended. She has a chronic Forde in place. Extremities: No pedal edema. DIAGNOSTIC STUDIES/LAB DATA: She had CBC on admission unremarkable. Chemistry significant for TSH 6.95, free T4 of 0.78, and urine culture positive for Enterococcus faecalis. DISCHARGE MEDICATIONS: 1. Status post 2 doses of Rocephin IV. She will be transferred on oral Levaquin 250 for 3 more days. 2. Continue amantadine 100 b.i.d. 3. Continue baclofen 20 b.i.d. 4. Continue Rexulti 1 tab daily. 5. Continue Tegretol 100 mg daily. 6. Continue Valium 5 b.i.d. 7. Continue Lomotil p.r.n. for diarrhea. 8. [place] 900 at bedtime. 9. Morphine 15 mg extended release in the morning. 10. Omeprazole 20 daily. 11. Zofran every 6 hours. 12. Oxycodone 20 daily. 13. Viibryd 40 daily. 14. Tylenol 650. 15. Colace 100 daily. 16. Levaquin 250 daily for 3 days. 17. Synthroid dose increased to 88 mcg from 75. 18. MiraLAX p.r.n. 19. Senna p.r.n. CONSULTATION: Physical Therapy. Recommended continue physical therapy for mobility and balance training. DISCHARGE RECOMMENDATIONS: I did discontinue her home medication of Ditropan and Myrbetriq, now that she has a chronic Forde. If intention to discontinue Forde, we may need to consider resumption of both. Forde catheter was exchanged yesterday after her antibiotic was administered at least 24 hours. DISCHARGE CONDITION: Stable. DISCHARGE DISPOSITION: To [facility]. [id number]/[facility] #: [id number] [facility]
== END 2019-06-07 16:10 | DRG 690 ==
LOC: ED 10:32 → MED 15:02 → INTOOBSV 15:02 → OBSVTOIN 06-06 16:30
PROVIDERS: ADMIT Internal Medicine; ATTEND Internal Medicine
DX: N39.0 Urinary tract infection, site not specified (principal); B95.2 Enterococcus as the cause of diseases classified elsewhere; G35 Multiple sclerosis; F32.9 Major depressive disorder, single episode, unspecified; J45.909 Unspecified asthma, uncomplicated; G43.909 Migraine, unspecified, not intractable, without status migrainosus; G47.33 Obstructive sleep apnea (adult) (pediatric); G40.909 Epilepsy, unspecified, not intractable, without status epilepticus; Z66 Do not resuscitate; M54.5 Low back pain; N32.81 Overactive bladder; E53.8 Deficiency of other specified B group vitamins; Z75.1 Person awaiting admission to adequate facility elsewhere; Z86.718 Personal history of other venous thrombosis and embolism; Z99.89 Dependence on other enabling machines and devices; Z79.891 Long term (current) use of opiate analgesic; Z79.899 Other long term (current) drug therapy; Z88.6 Allergy status to analgesic agent; Z88.1 Allergy status to other antibiotic agents; Z91.030 Bee allergy status; Z88.0 Allergy status to penicillin; Z88.2 Allergy status to sulfonamides; Z88.8 Allergy status to other drugs, medicaments and biological substances; Z91.018 Allergy to other foods; Z82.49 Family history of ischemic heart disease and other diseases of the circulatory system; Z83.438 Family history of other disorder of lipoprotein metabolism and other lipidemia
CPT/HCPCS: 36415; 70450; 71045; 74019; 80053; 80320; 81003; 81015; 82607; 83605; 83735; 83880; 84439; 84443; 84481; 84484; 85025; 87077; 87086; 87186; 93005; 94660; 99282; A9270-GY; G0378; G0480; G8978-GP-CM; G8979-GP-CL; J0696; J1642; J1644; J2405

== ENCOUNTER 2019-06-21 17:05 | Inpatient (IN) | payer MEDICARE, MEDICAID ==
--- NOTE | 2019-06-21 17:25 | ED ---
Complex/Multi-Sys Presentation - HPI Summary HPI Summary: Patient is a 49 y/o F presenting to [facility] with complaints of RUQ abdominal pain that onset around 1415/1430 today, 06/21/19. She states that around 1500, pain travelled to her right shoulder and right jaw. Patient notes that she has eaten lunch today. She reports that she has had similar pain previously, but notes that this episode has been more persistent. Vomiting is denied. She states that she has been having these episodes of pain for the past year. Patient has not been evaluated by medical provider for these Sx yet due to the intermittent nature of the pain. Past episodes last approximately 30-60 minutes. She states that the pain has awoken her 1-2 times in the past. Patient notes that pain typically follows food consumption. PSHx of breast reduction noted, no abdominal surgeries noted. Hx of MS is noted, she states that she is not taking medications for this condition. Dr. Lara is neurologist. Patient has a port for chemotherapy treatment for her MS. Home medications and allergies are reviewed. - History Of Current Complaint Chief Complaint: EDAbdPain Time Seen by Provider: 06/21/19 17:07 Hx Obtained From: Patient Onset/Duration: Lasting Hours, Still Present Timing: Constant, Hours Location: Pain At: - RUQ Aggravating Factor(s): food Alleviating Factor(s): nothing Associated Signs And Symptoms: Positive: Abdominal Pain, Other - positive - pain to right shoulder and right jaw. Negative: Vomiting - Allergies/Home Medications Allergies/Adverse Reactions: Allergies Allergy/AdvReac Type Severity Reaction Status Date / Time bee venom protein (honey bee) Allergy Severe See Comment Verified 06/04/19 10:43 onion Allergy Severe See Comment Verified 06/04/19 10:43 Sulfa (Sulfonamide Allergy Severe Unknown Verified 06/04/19 10:43 Antibiotics) Reaction Details aspirin Allergy Intermediate Nausea Verified 06/04/19 10:43 Penicillins Allergy Intermediate See Comment Verified 06/04/19 10:43 [place] And Derivatives Allergy Unknown See Comment Verified 06/04/19 10:43 erythromycin base Allergy Unknown Verified 06/04/19 10:43 Reaction Details Home Medications: Home Medications Amantadine CAP* [Symmetrel CAP*] 100 mg PO BID 06/21/19 [History Confirmed 06/21] Magnesium Hydroxide LIQ* [Milk of Magnesia LIQ*] 60 ml PO DAILY PRN 06/21/19 [ History Confirmed 06/21/19] Mirabegron (NF) [Myrbetriq (NF)] 50 mg PO DAILY 06/21/19 [History Confirmed ] Omeprazole CAP (NF) [Prilosec CAP* 20 MG] 20 mg PO DAILY 06/21/19 [History Confirmed 06/21/19] Pregabalin 25 mg CAP (*) [Lyrica 25 mg CAP (*)] 25 mg PO BEDTIME 06/21/19 [ History Confirmed 06/21/19] Senna TAB 8.6 mg* [Senokot 8.6 mg TAB*] 2 tab PO BEDTIME PRN 06/21/19 [History Confirmed 06/21/19] PMH/Surg Hx/FS Hx/Imm Hx Endocrine/Hematology History: Reports: Hx Thyroid Disease Denies: Hx Diabetes, Hx Anemia, Hx Unexplained Bleeding, Other Endocrine/ Hematological Disorders Cardiovascular History: Denies: Hx Aneurysm, Hx Angina, Hx Angioplasty, Hx Auto Implanted Cardiovert Defib, Hx Cardiac Arrest, Hx Cardiomegaly, Hx Congenital Heart Disease, Hx Congestive Heart Failure, Hx Coronary Artery Disease, Hx Deep Vein Thrombosis, Hx Embolism, Hx Hypercholesterolemia, Hx Hypotension, Hx Hypertension, Hx Pacemaker/ICD, Hx Peripheral Vascular Disease, Hx Rheumatic Fever, Hx Syncope, Hx Valvular Heart Disease, Other Cardiovascular Problems/Disorders Respiratory History: Reports: Hx Asthma - as a child, Hx Pulmonary Embolism, Hx Sleep Apnea Denies: Hx Chronic Bronchitis, Hx Chronic Obstructive Pulmonary Disease (COPD ), Hx Cystic Fibrosis, Hx Lung Cancer, Hx Pleural Effusion, Hx Pneumonia, Hx Pulmonary Edema, Hx Seasonal Allergies, Other Respiratory Problems/Disorders GI History: Reports: Hx Gastroesophageal Reflux Disease, Hx Ulcer Denies: Hx Gastrointestinal Bleed, Hx Hiatal Hernia History: Reports: Other Problems/Disorders - urinary incontinence Denies: Hx Dialysis, Hx Kidney Stones, Hx Renal Disease Musculoskeletal History: Reports: Hx Arthritis - knees, right hand, Hx Back Problems, Other Musculoskeletal History - MS Denies: Hx Bursitis, Hx Congenital Bone Abnormalities, Hx Fibromyalgia, Hx Gout, Hx Orthopedic Injury, Hx Osteoporosis, Hx Scoliosis, Hx Tendonitis Sensory History: Reports: Hx Contacts or Glasses, Other Sensory Impairments - Numbness in feet Denies: Hx Cataracts, Hx Eye Injury, Hx Eye Prosthesis, Hx Glaucoma, Hx Legally Blind, Hx Macular Degeneration, Hx Vision Problem, Hx Deafness, Hx Hearing Aid, Hx Hearing Problem Opthamlomology History: Reports: Hx Contacts or Glasses, Other Sensory Impairments - Numbness in feet Denies: Hx Cataracts, Hx Eye Injury, Hx Eye Prosthesis, Hx Glaucoma, Hx Legally Blind, Hx Macular Degeneration, Hx Vision Problem Neurological History: Reports: Hx Headaches, Hx Migraine, Hx Nerve Disease, Hx Seizures, Other Neuro Impairments/Disorders - MS Denies: Hx Dementia, Hx Developmental Delay, Hx Spinal Cord Injury, Hx Transient Ischemic Attacks (TIA) Psychiatric History: Reports: Hx Anxiety, Hx Depression, Hx Suicide Attempt, Hx Substance Abuse Denies: Hx Attention Deficit Hyperactivity Disorder, Hx Eating Disorder, Hx Panic Disorder, Hx Post Traumatic Stress Disorder, Hx Inpatient Treatment, Hx Community Mental Health Tx, Hx Schizophrenia, Hx Bipolar Disorder, Hx of Violent Episodes Against Others, Other Psychiatric Issues/Disorders - Cancer History Hx Chemotherapy: Yes - For MS Hx Radiation Therapy: No - Surgical History Surgery Procedure, Year, and Place: BREAST REDUCTION 2005, oral surgeries Hx Anesthesia Reactions: No - Immunization History Date of Tetanus Vaccine: Unknown Date of Influenza Vaccine: Unk re: Fall 2014 Infectious Disease History: No Infectious Disease History: Denies: Hx Clostridium Difficile, Hx Hepatitis, Hx Human Immunodeficiency Virus (HIV), Hx of Known/Suspected MRSA, Hx Shingles, Hx Tuberculosis, Hx Known/ Suspected VRE, Hx Known/Suspected VRSA, History Other Infectious Disease, Traveled Outside the [place] in Last 30 Days - Family History Known Family History: Positive: Cardiac Disease - Father, Diabetes Family History: FHx of spina bifida - Social History Alcohol Use: None 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 Negative: Vomiting Musculoskeletal: Other - positive - pain to right shoulder and right jaw All Other Systems Reviewed And Are Negative: Yes Physical Exam - Summary Physical Exam Summary: Appearance: Well-appearing, Well-nourished, lying in bed comfortably Skin: Warm, dry, no obvious rash Eyes: sclera anicteric, no conjunctival pallor ENT: mucous membranes moist, pharynx appears normal Neck: Supple, nontender Respiratory: Clear to auscultation, no signs of respiratory distress Cardiovascular: Normal S1, S2. No murmurs. Normal distal pulses in tibial and radial bilaterally. Abdomen: Soft, RUQ tenderness with guarding, normal active bowel sounds present Musculoskeletal: Normal, Strength/ROM Intact Neurological: A&Ox3, awake and alert, mentation is normal, speech is fluent and appropriate Psychiatric: affect is normal, does not appear anxious or depressed Triage Information Reviewed: Yes Vital Signs On Initial Exam: Initial Vitals Temp Pulse Resp BP Pulse Ox 98.2 F 82 20 124/70 98 06/21/19 17:06 06/21/19 17:06 06/21/19 17:06 06/21/19 17:06 06/21/19 17:06 Vital Signs Reviewed: Yes Procedures - Sedation Patient Received Moderate/Deep Sedation with Procedure: No Diagnostics - Vital Signs Vital Signs Temp Pulse Resp BP Pulse Ox 06/21/19 17:06 98.2 F 82 20 124/70 98 - Laboratory Result Diagrams: 06/26/19 06:14 06/26/19 06:14 Lab Statement: Any lab studies that have been ordered have been reviewed, and results considered in the medical decision making process. - Radiology Cholangiopancreatography MRI Radiology Interpretation Completed By: Radiologist Summary of Radiographic Findings: Cholangiopancreatography MRI IMPRESSION: 1. Cholelithiasis. 2. Dilated common bile duct (14 mm), but no choledocholithiasis. No ampullary. mass or pancreatic head mass. THIS REPORT WAS REVIEWED BY ED PHYSICIAN. - Ultrasound gallbladder us Ultrasound Interpretation Completed By: Radiologist Summary of Ultrasound Findings: GALLBLADDER US IMPRESSION: 1. Cholelithiasis with positive sonographic Stockton's sign. 2. Biliary dilatation without demonstrated obstructing stone. THIS REPORT WAS REVIEWED BY ED PHYSICIAN. Re-Evaluation - Re-Evaluation First Eval Re-Evaluation Time: 19:24 Comment: Results of workup were discussed with the patient. She will require MRCP. Patient to be admitted. Complex Multi-Symp Course/Dx Course Of Treatment: Patient is a 49 y/o F presenting to [facility] with complaints of RUQ abdominal pain that onset around 1415/1430 today, 06/21/19. She states that around 1500, pain travelled to her right shoulder and right jaw. Patient notes that she has eaten lunch today. She reports that she has had similar pain previously, but notes that this episode has been more persistent. Vomiting is denied. She states that she has been having these episodes of pain for the past year. Patient has not been evaluated by medical provider for these Sx yet due to the intermittent nature of the pain. Past episodes last approximately 30-60 minutes. She states that the pain has awoken her 1-2 times in the past. Patient notes that pain typically follows food consumption. Abdomen: Soft, RUQ tenderness with guarding, normal active bowel sounds present. Bloodwork was obtained and within normal limits with exception of creatinine 0.98, BUN/ creatinine ratio 7.1, glucose 107, AST 225, ALT 79, alk phos 218, total protein 6.3, lipase <10. UA showed 1+ leukocyte esterase, 3+ WBC, trace RBC, squamous epith cells present, 1+ bacteria. During ED course, patient received fluids. GALLBLADDER US IMPRESSION: 1. Cholelithiasis with positive sonographic Stockton' s sign. 2. Biliary dilatation without demonstrated obstructing stone. Results of workup were discussed with the patient. She will require MRCP. Patient to be admitted. Patient's case was discussed with Dr. Rutledge, Dr. Rutledge would like to obtain Cholangiopancreatography MRI. Cholangiopancreatography MRI IMPRESSION: 1. Cholelithiasis. 2. Dilated common bile duct (14 mm), but no choledocholithiasis. No ampullary. mass or pancreatic head mass. 2155 - MRI was discussed with Dr. Rutledge, Dr. Rutledge accepts for admission. - Diagnoses Provider Diagnoses: Cholecystitis - Physician Notifications Discussed Care Of Patient With: Дмитрий Rutledge Time Discussed With Above Provider: 21:33 Instructed by Provider To: Other - Patient's case was discussed with Dr. Rutledge, Dr. Rutledge would like to confirm that MRCP is available tomorrow. 2155 - MRI was discussed with Dr. Rutledge, Dr. Rutledge accepts for admission. Discharge ED - Sign-Out/Discharge Documenting (check all that apply): Patient Departure - admit - Discharge Plan Condition: Stable Disposition: ADMITTED TO [facility] - Billing Disposition and Condition Condition: STABLE Disposition: Admitted to [facility] - Attestation Statements Document Initiated by Scribe: Yes Documenting Scribe: JELANI KAMINSKI Provider For Whom Polly is Documenting (Include Credential): SUBHASH MOREJON MD Scribe Attestation: I, JELANI KAMINSKI, scribed for SUBHASH MOREJON MD on 06/27/19 at 0049. Scribe Documentation Reviewed: Yes Provider Attestation: The documentation as recorded by the JELANI mark accurately reflects the service I personally performed and the decisions made by me, SUBHASH MOREJON MD Status of Scribe Document: Viewed
[2019-06-21] MEDS ORDERED: NS 0.9% 1000 ML** 1,000 ML IV ONE (17:53)
[2019-06-21] MEDS ORDERED: Ondansetron INJ* 2 MG/ML VIAL IV ONE (17:53)
[2019-06-21 18:05] LABS: Urine Appearance Cloudy; Urine Bilirubin Negative (Negative); Urine Blood Negative (Negative); Urine Color Yellow; Urine Glucose Negative (Negative); Urine Ketones Negative (Negative); Urine Nitrite Negative (Negative); Urine Protein Negative (Negative); Urine Urobilinogen Negative (Negative)
[2019-06-21 18:06] LABS: Urine Bacteria 1+ (Absent); Urine Red Blood Cell Trace(0-2/hpf) (Absent); Urine Squamous Epithelial Cell Present (Absent); Urine White Blood Cell 3+(>20/hpf) (Absent)
[2019-06-21 18:10] LABS: ABS Lymphocytes 1.2 10^3/ul (1.0-4.8); ABS Monocytes 0.6 10^3/ul (0-0.8); ABS Neutrophils 4.9 10^3/ul (1.5-7.7); Hematocrit 38 % (35-47); Hemoglobin 12.3 g/dL (12.0-16.0); Lymphocyte % 18.4 %; Mean Corpuscular HGB Conc 33 g/dL (31-36); Mean Corpuscular Hemoglobin 30 pg (27-31); Mean Corpuscular Volume 93 fL (80-97); Mean Platelet Volume 7.7 fL (7.4-10.4); Platelet Count 313 10^3/uL (150-450); Red Blood Count 4.06 10^6 /uL (3.70-4.87); Red Cell Distribution Width 15 % (10-15); White Blood Count 6.8 10^3/uL (3.5-10.8)
[2019-06-21 18:28] LABS: ALT 79 U/L (7-52); AST 225 U/L (13-39); Albumin/Globulin Ratio 1.7 (1-3); Alkaline Phosphatase 218 U/L (34-104); Anion Gap 6 mmol/L (2-11); BUN/Creatinine Ratio 7.1 (8-20); Blood Urea Nitrogen 7 mg/dL (6-24); CO2 Carbon Dioxide 30 mmol/L (22-32); Calcium 8.9 mg/dL (8.6-10.3); Chloride 104 mmol/L (101-111); EGFR African American 72.7 (>60); EGFR Non-African American 60.1 (>60); Globulin 2.3 g/dL (2-4); Glucose 107 mg/dL (70-100); Potassium 3.8 mmol/L (3.5-5.0); Sodium 140 mmol/L (135-145); Total Protein 6.3 g/dL (6.4-8.9)
[2019-06-21 18:34] LABS: HCG Pregnancy 1.67 mIU/mL
[2019-06-21] MEDS: Morphine 10 MG/ML VIAL (1 ml) IV ONE ×2 (19:12→20:09)
[2019-06-21] MEDS ORDERED: Piperacillin/Tazobac ADVAN(*) 3.375 GM in NS 0.9% 100 ML* 100 ML IVPB ONE (19:37)
[2019-06-21] MEDS ORDERED: Morphine 10 MG/ML VIAL (1 ml) IV ONE (22:11)
[2019-06-21] MEDS ORDERED: Zosyn per Pharmacy* NOTE FOLLOW UP SCH (23:45)
--- NOTE | 2019-06-21 23:49 | HP ---
History of Present Illness - History of Present Illness Reason for Visit: Right side abdominal pain History of Present Illness: Karla Cisneros is a 49 y/o female with history of advanced MS, who presented to hospital today for right abdominal pain from 230pm today. She was recently discharged to [facility] for rehab after a hospital stay for UTI and MS relapse on 06/07/2019. She has been improving in terms of functional status, able to transfer herself from wheelchair to recliner. She had acute onset of right upper quadrant abdominal pain 230pm, she described it as severe sharp pain, right below the right costal ribs, constant, with radiation to right shoulder and jaw. She admitted nausea but no vomiting. She had intermittent right upper quadrant abdominal pain for the past 3 years, it usually lasted 15-30mins, similar nature with current one, she didn't seek for any medical advise for it. She recalled the pain probably happened after meals most of the time, she had lunch at 12:30pm today. She denied fever, admitted possible chills. When I saw her in ED, she said the pain was resolving with morphine but still stayed there constantly, pain score 5. - Past Medical History Past Medical History: 1. Advanced multiple sclerosis 2. asthma 3. Bipolar disorder 4. GERD 5. IBS 6. Urinary incontinence 7. Osteoarthritis in knee and hand 8. hypothyroidism on levothyroxine - Past Surgical History Past Surgical History: Breast reduction surgery in 2005 - Past Family History Past Family History: Asthma history in whole family. Heart attack in her father's family, most at age 40s Mother and maternal grandfather has diabetes. 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 Denies smoking, denies other substance use. Medications: Home Medications Medication Instructions Recorded Confirmed Type Vilazodone (NF) [Viibryd (NF)] 40 mg PO DAILY 09/11/17 06/21/19 History Brexpiprazole (Nf) [Rexulti] 1 mg PO DAILY 06/27/18 06/21/19 History Diazepam TAB(*) [Valium TAB(*)] 5 mg PO BID PRN 04/04/19 06/21/19 History Morphine TAB Extended Rel(*) [Ms 15 mg PO QAM PRN 04/04/19 06/21/19 History Contin(*)] Ondansetron TAB* [Zofran 4 MG Tab*] 4 mg PO Q6H PRN 04/04/19 06/21/19 History Oxycodone TAB(NF) [Oxycodone HCl 20 mg PO DAILY PRN 04/04/19 06/21/19 History 10 MG] [place] Carbonate ER (NF) 900 mg PO BEDTIME 04/05/19 06/21/19 History Diphenoxylate HCl/Atropine 1 tab PO QID PRN 05/25/19 06/21/19 History [Lomotil 2.5-0.025 mg Tablet] carBAMazepine TAB(*) [Tegretol 100 mg PO DAILY 05/25/19 06/21/19 History TAB(*)] Baclofen TAB* [Lioresal TAB*] 40 mg PO BID 05/28/19 06/21/19 History Acetaminophen TAB* [Tylenol TAB*] 650 mg PO Q6H PRN tab 06/07/19 06/21/19 Rx Cyanocobalamin TAB* [Vitamin B12 1,000 mcg PO DAILY tab 06/07/19 06/21/19 Rx TAB*] Docusate CAP* [Colace Cap*] 100 mg PO DAILY PRN cap 06/07/19 06/21/19 Rx Levofloxacin TAB* [Levaquin TAB*] 250 mg PO DAILY 3 Days #3 tab 06/07/19 Rx Levothyroxine TAB* [Synthroid 88 88 mcg PO 0600 tab 06/07/19 06/21/19 Rx MCG TAB*] Polyethylene Glycol 3350* 17 gm PO DAILY PRN packet 06/07/19 06/21/19 Rx [Miralax*] Amantadine CAP* [Symmetrel CAP*] 100 mg PO BID 06/21/19 06/21/19 History Magnesium Hydroxide LIQ* [Milk of 60 ml PO DAILY PRN 06/21/19 06/21/19 History Magnesia LIQ*] Mirabegron (NF) [Myrbetriq (NF)] 50 mg PO DAILY 06/21/19 06/21/19 History Omeprazole CAP (NF) [Prilosec CAP* 20 mg PO DAILY 06/21/19 06/21/19 History 20 MG] Pregabalin 25 mg CAP (*) [Lyrica 25 mg PO BEDTIME 06/21/19 06/21/19 History 25 mg CAP (*)] Senna TAB 8.6 mg* [Senokot 8.6 mg 2 tab PO BEDTIME PRN 06/21/19 06/21/19 History TAB*] Allergies/Adverse Reactions: Allergies Allergy/AdvReac Type Severity Reaction Status Date / Time bee venom protein (honey bee) Allergy Severe See Comment Verified 06/04/19 10:43 onion Allergy Severe See Comment Verified 06/04/19 10:43 Sulfa (Sulfonamide Allergy Severe Unknown Verified 06/04/19 10:43 Antibiotics) Reaction Details aspirin Allergy Intermediate Nausea Verified 06/04/19 10:43 Penicillins Allergy Intermediate See Comment Verified 06/04/19 10:43 [place] And Derivatives Allergy Unknown See Comment Verified 06/04/19 10:43 erythromycin base Allergy Unknown Verified 06/04/19 10:43 Reaction Details Review of Systems - Review of Systems Constitutional: Positive: Chills Eyes: Negative: Pain, Vision Change, Conjunctivae Inflammation, Eyelid Inflammation, Redness, Other ENT: Negative: Ear Pain, Ear Discharge, Nose Pain, Nose Discharge, Nose Congestion, Mouth Pain, Mouth Swelling, Throat Pain, Throat Swelling, Other Respiratory: Negative: Cough, Dry, Shortness of Breath, Hemoptysis, SOB with Excertion, Pleuritic Pain, Sputum, Wheezing Cardiovascular: Negative: Chest Pain, Palpitations, Orthopnea, Paroxysmal Noc. Dyspnea, Edema, Light Headedness, Other Gastrointestinal: Positive: Nausea Genitourinary: Negative: Dysuria, Frequency, Incontinence, Hematuria, Retention , Other Musculoskeletal: Negative: Neck Pain, Shoulder Pain, Arm Pain, Back Pain, Hand Pain, Leg Pain, Foot Pain, Other Skin: Negative: Rash, Lesions, Guillaume, Bruising, Other Neurological: Positive: Weakness, Numbness Exam Vital Signs: Vital Signs (72 hours) 06/21/19 06/21/19 06/21/19 17:06 17:39 17:40 Temperature 98.2 F Pulse Rate 82 79 80 Respiratory 20 Rate Blood Pressure 124/70 118/70 (mmHg) O2 Sat by Pulse 98 99 99 Oximetry 06/21/19 06/21/19 06/21/19 18:00 18:09 18:39 Temperature Pulse Rate 79 76 Respiratory Rate Blood Pressure 111/64 113/71 (mmHg) O2 Sat by Pulse 99 99 Oximetry 06/21/19 06/21/19 06/21/19 19:04 19:05 19:10 Temperature 97.6 F Pulse Rate 78 80 76 Respiratory 15 Rate Blood Pressure 113/71 113/68 (mmHg) O2 Sat by Pulse 99 99 98 Oximetry 06/21/19 06/21/19 06/21/19 19:40 20:00 20:09 Temperature Pulse Rate 92 85 Respiratory 17 Rate Blood Pressure 133/73 (mmHg) O2 Sat by Pulse 100 100 Oximetry 06/21/19 06/21/19 06/21/19 20:10 21:00 21:01 Temperature 97.8 F Pulse Rate 83 71 74 Respiratory 15 Rate Blood Pressure 117/56 126/75 126/75 (mmHg) O2 Sat by Pulse 99 99 98 Oximetry 06/21/19 06/21/19 06/21/19 21:02 21:10 21:40 Temperature Pulse Rate 77 77 Respiratory Rate Blood Pressure 123/69 130/78 (mmHg) O2 Sat by Pulse 98 99 Oximetry 06/21/19 06/21/19 06/21/19 22:00 22:17 22:18 Temperature Pulse Rate 70 70 71 Respiratory 17 17 Rate Blood Pressure 115/65 115/65 (mmHg) O2 Sat by Pulse 96 98 97 Oximetry Exam: Appearance: tired looking, not in acute distress Eyes: sclera anicteric, no conjunctival pallor ENT: mucous membranes moist, pharynx appears normal Respiratory: Clear to auscultation, no signs of respiratory distress Cardiovascular: Normal S1, S2. No murmurs Abdomen: Soft, focal tenderness at RUQ, no guarding, BS+, stockton sign positive Musculoskeletal: lower extremity strength 4, only able to elevate at 10 degree due to weakness Neurological: A&Ox3, awake and alert, mentation is normal, speech is fluent and appropriate Psychiatric: affect is normal, does not appear anxious or depressed Result Diagrams: 06/21/19 18:05 06/21/19 18:05 Additional Lab and Data: lipase normal Diagnostic Imaging: US abdomen: 1. cholelithiasis with positive sonographic stockton's sign 2. Biliary dilatation without demonstrated obstructing stone. MRCP: 1. cholilithiasis 2. Dilated common bile duct 14mm. but no choledocholithiasis, no ampullaruy mass or pancreatic head mas. Assessment/Plan - Assessment/Plan Assessment: 49 y/o female with history of advance MS, presented with acute onset of right upper quadrant abdominal pain with history of intermittent abdominal pain of similar nature for 3 years. She was found to have elevated ALT/AST/ALP, dilated CBD duct and gallstone in US, but no CBD stone was found in MRCP. This could be a passed bile duct stone with long existing cholelithiasis. But with her positive stockton sign, persistent RUQ pain, I do have a concern for acute cholecystitis, although no leukocytosis or imaging evidence at this moment. Surgical opinion is helpful since her pain persists. Plan: 1. Right upper quadrant abdominal pain - likely passed bile duct stone, diff includes acute cholecystitis - NPO, allow mouth rinsing - IV fluid - IV zosyn for now - pain control with morphine prn - Spoke to surgical consult Dr. Candice colón, she is happy to evaluate the patient tomorrow - repeat liver function and counts tomorrow 2.Mutiple sclerosis - hold off meds for now due to npo status 3. hypothyroidism - will convert to iv levothyroxine for now while on npo 4. Bipolar disorder - mood stable currently - will continue lithium when off NPO 5. recent UTI - completed levofloxacin 12/26 by today - no urinary sx right now 6. DVT prophylaxis - sc lovenox Dispo: need rehab in [facility] on discharge Attestation Documenting Resident: Ella Siddiqui Supervising Physician: Дмитрий Rutledge Attending/Supervising Physician Comment: Intermittent RUQ abdominal pain for 3 years, now more intense. Evidence of cholelithiasis and common bile duct dilatation (to 14mm) on both US and MRCP but no evidence of obstructing stone. Continued pain and Stockton's sign positive. Without fever or leukocytosis. Transaminitis. Continue zosyn for now. General Surgery consulted. [facility]. Pt completed 7 day course of levaquin from 06/08-06/14 per [facility]. Her Mybetriq just restarted on 06/21 - she had a lynn catheter during last admission. Hx of frequent UTIs likely from Neurogenic bladder. She was evaluated by Dr. Herrmann as outpatient about 1 year ago when Mybetriq was started. Attestation: This service has been performed in part by a resident under the direction of a teaching physician.I, Дмитрий Rutledge, performed the service, or was physically present during the critical, or kern portions of the service, furnished by the resident. I participated in the management of the patient.
[2019-06-22] MEDS: ZOSYN 3.375 GM Q8H per EXTENDED INFUSION IVPB SCH ×6 (02:04→16:41)
[2019-06-22] MEDS: NS 0.9% 1000 ML** 1,000 ML IV SCH ×3 (02:04→14:29)
[2019-06-22] MEDS: Enoxaparin(*) 40 MG/0.4 ML SYR SUBCUT SCH (02:23)
[2019-06-22] MEDS: Morphine INJ* 4 MG/ML 1 ML SYRINGE (NEW SYRINGE VERSION) IV PRN ×2 (05:04→07:26)
[2019-06-22] MEDS: Ondansetron INJ* 2 MG/ML VIAL IV PRN ×2 (05:18→19:57)
[2019-06-22] MEDS ORDERED: Levothyroxine INJ* 100 MCG/5 ML VIAL IV SCH (06:00)
[2019-06-22 08:01] LABS: Albumin 3.6 g/dL (3.2-5.2); Albumin/Globulin Ratio 1.6 (1-3); BUN/Creatinine Ratio 8.3 (8-20); EGFR African American 86.8 (>60); EGFR Non-African American 71.8 (>60); Globulin 2.3 g/dL (2-4); Indirect Bilirubin 0.5 mg/dL (0.3-1.0); Potassium 3.9 mmol/L (3.5-5.0); Total Bilirubin 0.6 mg/dL (0.2-1.0); Total Protein 5.9 g/dL (6.4-8.9)
--- NOTE | 2019-06-22 13:27 | CONS ---
CC: [facility]; Dr. Arron Lara, Neurology; Dr. Chiki Chandler , [facility] * CONSULTATION REPORT: DATE OF CONSULT: 06/22/19 REASON FOR CONSULTATION: Right upper quadrant abdominal pain and gallstones. HISTORY OF PRESENT ILLNESS: MsGlo Cisneros is a 49-year-old woman with advanced multiple sclerosis who presented to the hospital with right upper quadrant abdominal pain that started suddenly about 2:30 yesterday afternoon. She was at [facility] for rehabilitation after a urinary tract infection and an MS relapse in middle of May 2019. Apparently, she has been improving in terms of her functional status and is able to only transfer herself from wheelchair to recliner. She is not ambulatory. She has had trouble per the records over the past several months of obtaining a carer at home. She has been having trouble with her daily needs care at home and there was a hospice consultation in early May 2019, although she was not felt to be a candidate due to her disease. She states she has also had intermittent right upper quadrant abdominal pain that may last for [id number] to 45 minutes over the past several months, but no workup has been done. I do note that she underwent a CAT scan of the abdomen and pelvis in the fall of 2018 for abdominal pain, but this showed no calcified gallstones or gallbladder pathology. I do not see where an ultrasound has been done of the right upper quadrant. When she was seen in the emergency room last night, she was noted to be afebrile. She had stable vital signs. Laboratory values included a normal white blood cell count. She was noted to have a normal total bilirubin; however , her AST, ALT, and alkaline phosphatase were all mildly elevated. Lipase was normal. She underwent an ultrasound of the right upper quadrant. I did review these images. The ultrasound showed cholelithiasis with [place] sign positivity. The common bile duct was dilated about 1.2 cm without a stone. The gallbladder wall was contracted, but there was no obvious pericholecystic fluid. In light of the fact that her liver function tests were elevated for the first time, she underwent an MRCP. This showed cholelithiasis. There were multiple gallstones, but no gallbladder wall thickening, pericholecystic fluid or pericholecystic inflammatory fat stranding. The common bile duct measured 1.4 cm, but no stone was seen in the common bile duct. Pancreatic duct appeared to be unremarkable. She was admitted to the hospitalist service. She has been started on Zosyn. She has remained afebrile. She states her pain is gone at rest, but still has some mild discomfort in the right upper quadrant on movement. PAST MEDICAL HISTORY: 1. Advanced multiple sclerosis. 2. Asthma. 3. Bipolar disorder. 4. GERD. 5. Irritable bowel syndrome. 6. Urinary incontinence. 7. Osteoarthritis. 8. Hypothyroidism. PAST SURGICAL HISTORY[place] [facility] [place] MEDICATIONS: Medicines include: 1. Viibryd. 2. Rexulti. 3. Diazepam. 4. Morphine. 5. Ondansetron. 6. [place]. 7. Atropine. 8. Carbamazepine. 9. Baclofen. 10. Vitamin B12. 11. Docusate. 12. Levofloxacin for recent UTI. 13. Prilosec. 14. Lyrica. 15. Senna. ALLERGIES: She is allergic to BEE VENOM, ONIONS, SULFA, ASPIRIN, PENICILLINS, and ERYTHROMYCIN. SOCIAL HISTORY: She does not use tobacco or alcohol or illicit drugs. She lives alone. Surrogate decision-maker is her ex-, Humera Lino. REVIEW OF SYSTEMS: A 14-point review of systems was otherwise reviewed. All those not mentioned above were negative. PHYSICAL EXAM: She is afebrile, heart rate 73, blood pressure 113/61. In general, she is a well-developed woman who appears to be in no apparent distress. She is awake, alert, conversive; oriented to person, place, and time. Her lungs were clear to auscultation with normal respiratory effort. Heart was regular rate and rhythm without murmurs, rubs, or gallops. Her abdomen is soft and nondistended. She has no prior surgical incisions. She had normoactive bowel sounds throughout. She has very mild tenderness on deeper palpation in the right upper quadrant. There are no rebound, guarding , or peritoneal signs. There are no masses. I appreciate no organomegaly. IMPRESSION: 1. Cholelithiasis and right upper quadrant abdominal pain. Her pain is now improving after the hospitalization and being started on IV antibiotics. She has remained afebrile with normal white blood cell count. She had a normal bilirubin, but mild elevation of her transaminases and alkaline phosphatase, which are slowly decreasing today. Ultrasound and an MRCP above do show a common bile duct that is mildly dilated, but no common bile duct stone and no evidence of acute calculous cholecystitis. 2. Advanced multiple sclerosis. 3. Other medical problems as described above. I discussed these findings in detail with the patient. It is difficult to state whether she has acute calculous cholecystitis, although with a normal white blood cell count, no wall thickening or pericholecystic fluid, this is unlikely. She certainly may had have problems with chronic biliary colic in the past, which is due to gallstones. I am not certain the exact etiology of the mildly dilated common bile duct and the normal bilirubin, as I feel that if she had passed a gallstone most likely would have an elevation of the bilirubin in addition to the transaminases and alkaline phosphatase. I am not certain the effects of any other medications on her liver values. All things considered, I think that a cholecystectomy would be indicated in the average-risk patient after this extensive workup. I would recommend that we review the MRCP with our radiologist here to rule out common bile duct stone. She certainly is at increased risk for any surgical intervention including a laparoscopic cholecystectomy from a general anesthetic point and the fact that she will need some sort of recovery and rehabilitation. She has obviously been hospitalized over the past month whether this was due to her urinary tract infection, social issues, or her MS is not completely clear to me. Also not clear is her expected natural history of her multiple sclerosis. PLAN: 1. HIDA scan tomorrow morning. 2. She could have liquids today, kept n.p.o., after midnight. 3. Continue with the IV antibiotics. 4. Repeat laboratory liver tests in the morning to follow the trend. 5. Consider Neurology consult. If we are going to proceed with consideration of laparoscopic cholecystectomy, Anesthesia certainly would like an assessment of her risk from a cardiopulmonary standpoint for perioperative recovery and longer term functional recovery. 6. We will await the results of the test tomorrow and continue to follow her closely. Thank you very much for the consultation. I discussed all the above with Karla Valencia, nurse practitioner. [id number]/[facility] #: [id number] SHIRA
[2019-06-22] MEDS ORDERED: Polyethylene Glycol 3350* 17 GM PACKET PO PRN (14:10)
[2019-06-22] MEDS ORDERED: Acetaminophen TAB* 325 MG PO PRN (14:10)
[2019-06-22] MEDS ORDERED: Docusate CAP* 100 MG PO PRN (14:10)
[2019-06-22] MEDS ORDERED: Senna TAB 8.6 mg* TAB PO PRN (14:10)
[2019-06-22] MEDS ORDERED: Morphine TAB Extended Release (*) 30 MG TAB.ER PO PRN (14:13)
[2019-06-22] MEDS ORDERED: Morphine INJ* 4 MG/ML 1 ML SYRINGE (NEW SYRINGE VERSION) IV PRN (14:15)
[2019-06-22] MEDS: CMCS:Vilazodone (NF) 40 MG TAB PO SCH (15:11)
--- NOTE | 2019-06-22 18:06 | PN ---
Subjective Date of Service: 06/22/19 Interval History: Reports that RUQ abd pain has improved since admission. Does continue to report pain to the RUQ with palpation. Denies chest pain or shortness of breath. Denies fever or chills. Family History: Unchanged from Admission Social History: Unchanged from Admission Past Medical History: Unchanged from Admission Objective Active Medications: Acetaminophen (Tylenol Tab*) 650 mg PO Q6H PRN PRN Reason: PAIN - MILD Amantadine HCl (Symmetrel Cap*) 100 mg PO BID [facility] Baclofen (Lioresal Tab*) 40 mg PO BID [facility] Brexpiprazole (Rexulti) 1 mg PO DAILY [facility] Carbamazepine (Tegretol Tab(*)) 100 mg PO DAILY [facility] Cyanocobalamin (Vitamin B12 Tab*) 1,000 mcg PO DAILY [facility] Docusate Sodium (Colace Cap*) 100 mg PO DAILY PRN PRN Reason: CONSTIPATION Enoxaparin Sodium (Lovenox(*)) 40 mg SUBCUT Q24H [facility] Last Admin: 06/22/19 02:23 Dose: 40 mg Piperacillin Sod/Tazobactam (Sod 3.375 gm/ Sodium Chloride) 100 mls @ 25 mls/ hr IVPB Q8H [facility] Last Admin: 06/22/19 16:41 Dose: 25 mls/hr Sodium Chloride (Ns 0.9% 1000 Ml) 1,000 mls @ 75 mls/hr IV PER RATE [facility] Last Admin: 06/22/19 14:29 Dose: 75 mls/hr Levothyroxine Sodium (Synthroid Tab*) 88 mcg PO 0600 [facility] [place] Carbonate ([place] Carbonate Er Tab*) 900 mg PO BEDTIME [facility]; Protocol Morphine Sulfate (Ms Contin(*)) 15 mg PO QAM PRN PRN Reason: PAIN - MODERATE Morphine Sulfate (Morphine Inj (Syringe)*) 4 mg IV Q4H PRN PRN Reason: PAIN - SEVERE Ondansetron HCl (Zofran Inj*) 4 mg IV Q4H PRN PRN Reason: NAUSEA/VOMITING Last Admin: 06/22/19 05:18 Dose: 4 mg Oxybutynin Chloride (Ditropan Xl Tab*) 5 mg PO BEDTIME [facility] Pantoprazole Sodium (Protonix Tab*) 40 mg PO DAILY [facility] Pharmacy Consult (Zosyn Per Pharmacy*) 1 note FOLLOW UP .ZOSYN PER PHARMACY [facility] Polyethylene Glycol/Electrolytes (Miralax*) 17 gm PO DAILY PRN PRN Reason: CONSTIPATION Pregabalin (Lyrica 25 Mg Cap (*)) 25 mg PO BEDTIME [facility] Senna (Senokot 8.6 Mg Tab*) 2 tab PO BEDTIME PRN PRN Reason: CONSTIPATION Vilazodone HCl (Viibryd (Nf)) 40 mg PO DAILY [facility] Last Admin: 06/22/19 15:11 Dose: 40 mg Vital Signs - 8 hr 06/22/19 06/22/19 11:48 15:51 Temperature 97.9 F 97.9 F Pulse Rate 81 80 Respiratory 14 18 Rate Blood Pressure 116/49 117/63 (mmHg) O2 Sat by Pulse 100 100 Oximetry Oxygen Devices in Use Now: None Appearance: appears comfortable, no acute distress Eyes: No Scleral Icterus Ears/Nose/Mouth/Throat: Clear Oropharnyx, Mucous Membranes Moist Neck: NL Appearance and Movements; NL JVP, Trachea Midline Respiratory: Symmetrical Chest Expansion and Respiratory Effort, Clear to Auscultation Cardiovascular: NL Sounds; No Murmurs; No JVD, No Edema Abdominal: NL Sounds; No Tenderness; No Distention Extremities: No Edema, No Clubbing, Cyanosis Skin: No Rash or Ulcers Neurological: Alert and Oriented x 3 Nutrition: Taking PO's Result Diagrams: 06/26/19 06:14 06/26/19 06:14 Additional Lab and Data: lipase normal Microbiology and Other Data: Microbiology 06/21/19 17:49 Urine Culture - Final Urine No Growth (<1,000 CFU/mL) 06/22/19 01:25 Nasal Screen MRSA (PCR) - Final Nasal Mrsa Not Detected Diagnostic Imaging: US abdomen: 1. cholelithiasis with positive sonographic villa's sign 2. Biliary dilatation without demonstrated obstructing stone. MRCP: 1. cholilithiasis 2. Dilated common bile duct 14mm. but no choledocholithiasis, no ampullaruy mass or pancreatic head mas. Assess/Plan/Problems-Billing Assessment: Ms. Cisneros is a 49 y.o female with pmhx of MS, who presented with ER with RUQ abd pain found to have cholelithesis - Patient Problems (1) RUQ abdominal pain Status: Acute Code(s): R10.11 - RIGHT UPPER QUADRANT PAIN SNOMED Code(s): 232477470 Comment: - HIDA scan ordered - continue zosyn - Most likely had a passed CBD stone - Surgery consulted - resume diet as tolerated (2) Depression Status: Chronic Code(s): F32.9 - MAJOR DEPRESSIVE DISORDER, SINGLE EPISODE, UNSPECIFIED SNOMED Code(s): 75098709 Comment: - Appreciate Psych recs (Dr. Bustamante) - Continue Chronic Medications at this time (Rexulti, [place], Viibryd), no SI/ HI - Follow up outpatient [facility] (3) Hypothyroidism Status: Chronic Code(s): E03.9 - HYPOTHYROIDISM, UNSPECIFIED SNOMED Code(s) : 35895071 Comment: continue levothyroxine 88mcg (4) Multiple sclerosis Status: Chronic Code(s): G35 - MULTIPLE SCLEROSIS SNOMED Code(s): 11368603 Comment: stable -not in exacerbation - Advanced, Secondary progressive and refractory to treatment - Continue symptomatic management for spasms (baclofen amentadine), pain and alertness. - Appreciate Dr. Devi fontana. Seems like Vanceenya was not pursued in [place] ultimately. (5) DVT prophylaxis Status: Acute Priority: Medium Code(s): [id number] - SNOMED Code(s): 352657178 Comment: - History of DVT. - Lovenox resumed (6) Full code status Status: Acute Code(s): Z78.9 - OTHER SPECIFIED HEALTH STATUS SNOMED Code(s) : 852483029 Status and Disposition: inpatient - discharge when medically stable
[2019-06-22] MEDS: Amantadine CAP* 100 MG PO SCH (21:39)
[2019-06-22] MEDS: Lithium Carbonate ER* 450 MG TAB.ER PO SCH (21:40)
[2019-06-22] MEDS: Baclofen TAB* 20 MG PO SCH (21:41)
[2019-06-22] MEDS: Oxybutynin XL TAB* 5 MG PO SCH (21:41)
[2019-06-22] MEDS: Pregabalin 25 mg CAP (*) PO SCH (21:41)
[2019-06-23] MEDS: Ondansetron INJ* 2 MG/ML VIAL IV PRN ×2 (00:01→20:39)
[2019-06-23] MEDS: Enoxaparin(*) 40 MG/0.4 ML SYR SUBCUT SCH ×2 (00:03→22:39)
[2019-06-23] MEDS: ZOSYN 3.375 GM Q8H per EXTENDED INFUSION IVPB SCH ×6 (00:07→16:03)
[2019-06-23] MEDS: NS 0.9% 1000 ML** 1,000 ML IV SCH ×2 (00:09→13:41)
[2019-06-23 06:52] LABS: ABS Lymphocytes 0.8 10^3/ul (1.0-4.8); ABS Monocytes 0.3 10^3/ul (0-0.8); ABS Neutrophils 2.6 10^3/ul (1.5-7.7); Hematocrit 36 % (35-47); Lymphocyte % 20.6 %; Mean Corpuscular HGB Conc 34 g/dL (31-36); Mean Corpuscular Hemoglobin 31 pg (27-31); Mean Corpuscular Volume 92 fL (80-97); Mean Platelet Volume 7.9 fL (7.4-10.4); Platelet Count 285 10^3/uL (150-450); Red Blood Count 3.89 10^6 /uL (3.70-4.87); Red Cell Distribution Width 15 % (10-15); White Blood Count 3.7 10^3/uL (3.5-10.8)
[2019-06-23 07:05] LABS: Albumin 3.7 g/dL (3.2-5.2); Albumin/Globulin Ratio 1.8 (1-3); BUN/Creatinine Ratio 8.6 (8-20); EGFR African American 107.2 (>60); EGFR Non-African American 88.6 (>60); Globulin 2.1 g/dL (2-4); Indirect Bilirubin 0.4 mg/dL (0.3-1.0); Potassium 3.9 mmol/L (3.5-5.0); Total Bilirubin 0.5 mg/dL (0.2-1.0); Total Protein 5.8 g/dL (6.4-8.9)
[2019-06-23] MEDS ORDERED: NF:Mirabegron (NF) 50 MG TAB PO SCH (09:00)
[2019-06-23] MEDS: BREXPIPRAZOLE 1 MG PO SCH (09:04)
[2019-06-23] MEDS: Levothyroxine TAB* 88 MCG TAB PO SCH (09:04)
[2019-06-23] MEDS: Baclofen TAB* 20 MG PO SCH ×2 (09:04→16:04)
[2019-06-23] MEDS: Amantadine CAP* 100 MG PO SCH ×2 (09:04→20:31)
[2019-06-23] MEDS: Cyanocobalamin TAB* 500 MCG PO SCH (09:04)
[2019-06-23] MEDS: carBAMazepine TAB(*) 200 MG PO SCH ×3 (09:04→16:24)
[2019-06-23] MEDS: CMCS:Vilazodone (NF) 40 MG TAB PO SCH ×2 (09:04→15:02)
[2019-06-23] MEDS: Pantoprazole TAB * 40 MG TAB PO SCH (09:04)
--- NOTE | 2019-06-23 09:23 | PN ---
Progress Note - Progress Note Date of Service: 06/23/19 SOAP: Subjective: Some nausea this morning, tolerated liquids yesterday Mild right sided abdominal pain Objective: Temp Pulse Resp BP Pulse Ox 97.9 F 67 18 122/70 100 06/23/19 08:21 06/23/19 08:21 06/23/19 08:37 06/23/19 08:21 06/23/19 08:21 Intake & Output 06/21/19 06/22/19 06/23/19 06/24/19 06:59 06:59 06:59 06:59 Intake Total 1600 1789 0 Output Total 700 2125 400 Balance 900 -336 -400 Weight 165 lb Intake: IV Fluids 1600 1680 ABX - ZOSYN 110 217 NS (0.9%) 440 1463 IVPB 109 ABX - ZOSYN 109 Oral 0 0 Output: Urine 700 2125 400 Other: Estimated Void Large # Bowel Movements 1 Estimated Stool Amount Small # Voids 1 PEX: Comfortable ABD is soft and non-distended. Bowel sounds present. Mild right mid abdominal pain without mass, rebound or guarding. Laboratory Results - last 24 hr 06/23/19 06/23/19 06:30 06:30 WBC 3.7 RBC 3.89 Hgb 12.0 Hct 36 MCV 92 MCH 31 MCHC 34 RDW 15 Plt Count 285 MPV 7.9 Neut % (Auto) 70.5 Lymph % (Auto) 20.6 [place] % (Auto) 8.5 Eos % (Auto) 0.0 Baso % (Auto) 0.4 Absolute Neuts (auto) 2.6 Absolute Lymphs (auto) 0.8 L Absolute Monos (auto) 0.3 Absolute Eos (auto) 0.0 Absolute Basos (auto) 0.0 Absolute Nucleated RBC 0.0 Nucleated RBC % 0.0 Sodium 142 Potassium 3.9 Chloride 107 Carbon Dioxide 30 Anion Gap 5 BUN 6 Creatinine 0.70 Est GFR ( Amer) 107.2 Est GFR (Non-Af Amer) 88.6 BUN/Creatinine Ratio 8.6 Glucose 116 H Calcium 9.0 Total Bilirubin 0.50 Direct Bilirubin 0.10 Indirect Bilirubin 0.4 AST 65 H ALT 64 H Alkaline Phosphatase 188 H Total Protein 5.8 L Albumin 3.7 Globulin 2.1 Albumin/Globulin Ratio 1.8 Assessment: Right sided abdominal pain, gallstones, dilated CBD and mild elevation of liver transaminases (improving)-normal bilirubin MRCP shows 1.4 cm CBD but no obvious filling defects in CBD CBD dilation on US and MRCP new since fall [address] done at that time No evidence of acute cholecystitis MS Depression Recent UTI Plan: HIDA scan today to evaluate CBD further-presently in progress Depending on results, may require GI evaluation?? Neuro opinion regarding operative candidacy and risks
--- NOTE | 2019-06-23 12:58 | PN ---
Subjective Date of Service: 06/23/19 Interval History: Patient emily has RUQ tenderness, but no pain at rest. Patient is nauseated, but attributes this to her lack of oral intake. Patient denies CP, SOB, dizziness, F /C, or other new pain. Family History: Unchanged from Admission Social History: Unchanged from Admission Past Medical History: Unchanged from Admission Objective Active Medications: Acetaminophen (Tylenol Tab*) 650 mg PO Q6H PRN PRN Reason: PAIN - MILD Amantadine HCl (Symmetrel Cap*) 100 mg PO BID [facility] Last Admin: 06/23/19 09:04 Dose: Not Given Baclofen (Lioresal Tab*) 40 mg PO BID [facility] Last Admin: 06/23/19 09:04 Dose: Not Given Brexpiprazole (Rexulti) 1 mg PO DAILY [facility] Last Admin: 06/23/19 09:04 Dose: Not Given Carbamazepine (Tegretol Tab(*)) 100 mg PO DAILY [facility] Last Admin: 06/23/19 09:04 Dose: Not Given Cyanocobalamin (Vitamin B12 Tab*) 1,000 mcg PO DAILY [facility] Last Admin: 06/23/19 09:04 Dose: Not Given Docusate Sodium (Colace Cap*) 100 mg PO DAILY PRN PRN Reason: CONSTIPATION Enoxaparin Sodium (Lovenox(*)) 40 mg SUBCUT Q24H [facility] Last Admin: 06/23/19 00:03 Dose: 40 mg Piperacillin Sod/Tazobactam (Sod 3.375 gm/ Sodium Chloride) 100 mls @ 25 mls/ hr IVPB Q8H [facility] Last Admin: 06/23/19 08:20 Dose: 25 mls/hr Sodium Chloride (Ns 0.9% 1000 Ml) 1,000 mls @ 75 mls/hr IV PER RATE [facility] Last Admin: 06/23/19 00:09 Dose: 75 mls/hr Levothyroxine Sodium (Synthroid Tab*) 88 mcg PO 0600 [facility] Last Admin: 06/23/19 09:04 Dose: Not Given [place] Carbonate ([place] Carbonate Er Tab*) 900 mg PO BEDTIME [facility]; Protocol Last Admin: 06/22/19 21:40 Dose: 900 mg Morphine Sulfate (Morphine Inj (Syringe)*) 4 mg IV Q4H PRN PRN Reason: PAIN - SEVERE Last Admin: 06/23/19 07:37 Dose: 4 mg Ondansetron HCl (Zofran Inj*) 4 mg IV Q4H PRN PRN Reason: NAUSEA/VOMITING Last Admin: 06/23/19 00:01 Dose: 4 mg Oxybutynin Chloride (Ditropan Xl Tab*) 5 mg PO BEDTIME [facility] Last Admin: 06/22/19 21:41 Dose: Not Given Pantoprazole Sodium (Protonix Tab*) 40 mg PO DAILY [facility] Last Admin: 06/23/19 09:04 Dose: Not Given Pharmacy Consult (Zosyn Per Pharmacy*) 1 note FOLLOW UP .ZOSYN PER PHARMACY [facility] Polyethylene Glycol/Electrolytes (Miralax*) 17 gm PO DAILY PRN PRN Reason: CONSTIPATION Pregabalin (Lyrica 25 Mg Cap (*)) 25 mg PO BEDTIME [facility] Last Admin: 06/22/19 21:41 Dose: Not Given Senna (Senokot 8.6 Mg Tab*) 2 tab PO BEDTIME PRN PRN Reason: CONSTIPATION Vilazodone HCl (Viibryd (Nf)) 40 mg PO DAILY [facility] Last Admin: 06/23/19 09:04 Dose: Not Given Vital Signs - 8 hr 06/23/19 06/23/19 06/23/19 07:37 08:21 08:35 Temperature 97.9 F Pulse Rate 67 Respiratory 16 16 18 Rate Blood Pressure 122/70 (mmHg) O2 Sat by Pulse 100 Oximetry 06/23/19 06/23/19 08:37 12:22 Temperature 98.6 F Pulse Rate 70 Respiratory 18 16 Rate Blood Pressure 123/72 (mmHg) O2 Sat by Pulse 100 Oximetry Oxygen Devices in Use Now: None Appearance: Patient is a 49yo female who appears stated age and is sitting in the bed in [facility]. Eyes: No Scleral Icterus, PERRLA Ears/Nose/Mouth/Throat: NL Teeth, Lips, Gums, Clear Oropharnyx, Mucous Membranes Moist Neck: NL Appearance and Movements; NL JVP, Trachea Midline Respiratory: Symmetrical Chest Expansion and Respiratory Effort, Clear to Auscultation Cardiovascular: NL Sounds; No Murmurs; No JVD, RRR, No Edema Abdominal: NL Sounds; No Tenderness; No Distention Lymphatic: No Cervical Adenopathy Extremities: No Edema, No Clubbing, Cyanosis Skin: No Rash or Ulcers, No Nodules or Sclerosis Neurological: Alert and Oriented x 3, - - Diffusely spastic with paresthesia. Result Diagrams: 06/23/19 06:30 06/23/19 06:30 Additional Lab and Data: lipase normal Microbiology and Other Data: Microbiology 06/21/19 17:49 Urine Culture - Final Urine No Growth (<1,000 CFU/mL) 06/22/19 01:25 Nasal Screen MRSA (PCR) - Final Nasal Mrsa Not Detected Diagnostic Imaging: US abdomen: 1. cholelithiasis with positive sonographic villa's sign 2. Biliary dilatation without demonstrated obstructing stone. MRCP: 1. cholilithiasis 2. Dilated common bile duct 14mm. but no choledocholithiasis, no ampullaruy mass or pancreatic head mas. Assess/Plan/Problems-Billing Assessment: Ms. Cisneros is a 49 y.o female with pmhx of MS, who presented with ER with RUQ abd pain found to have cholelithesis and concern for passed CBD stone. - Patient Problems (1) RUQ abdominal pain Current Visit: Yes Status: Acute Code(s): R10.11 - RIGHT UPPER QUADRANT PAIN SNOMED Code(s): 604637292 Comment: - Surgery consulted - HIDA scan normal - Continue Zosyn - Resume Clears - Most likely diagnosis is passed CBD stone - Likely Cholescystectomy tomorrow. - Patient's RCRI is 0 indicating a 3.9% risk of MACE at 30 days. It is difficult to assess patient's functional status due to lack of activity associated with MS. However, given patient's age, lack of cardiac risk factors and lack of symptoms associated with HF or TN, patient is medically optimized for surgery without further cardiac testing. Patient is a low risk for this low risk surgery. - Pending Neurological consult for special pre and perioperative considerations. (2) H/O multiple sclerosis Current Visit: No Status: Chronic Code(s): Z86.69 - PERSONAL HISTORY OF DIS OF THE NERVOUS SYS AND SENSE ORGANS SNOMED Code(s): 714895653 Comment: - Secondary Progressive - Advanced, refractory to treatment, on no DMARD - Continue with symptomatic treatment. (3) DVT prophylaxis Current Visit: No Status: Acute Priority: Medium Code(s): VOM1749 - SNOMED Code(s): 197096543 Comment: - History of DVT. - Lovenox held for surgery. Status and Disposition: inpatient - discharge when medically stable
--- NOTE | 2019-06-23 16:50 | CONS ---
CC: Artur Cabrales MD * NEUROLOGY CONSULTATION: DATE OF CONSULT: 06/23/19 LOCATION: She is an inpatient in room 340. REFERRING PROVIDER: LALI Sidhu CHIEF COMPLAINT: History of multiple sclerosis in a patient with cholecystitis. HISTORY OF PRESENT ILLNESS: Karla Cisneros is a 49-year-old woman who developed abdominal pain with nausea and vomiting and was diagnosed with gallstone cholecystitis. She is scheduled to have a cholecystectomy tomorrow. She has a history of multiple sclerosis for decades. She has been on a number of different preventative medicines over the years, but developed progressive disease. She is currently not on any preventative therapy. Reading the last office note, Gilenya was being considered, but she decided against it. She resides at [facility] where she is currently getting rehabilitation. She developed a pretty bad urinary tract infection in mid May and became very weak. She was also evaluated earlier this winter for seizures by Dr. Gonzalez. She first had a seizure in June 2018. She was on Keppra briefly, but then switched to carbamazepine. She was on Ampyra at the time and that was stopped, is also a possible contributing factor. PAST MEDICAL HISTORY: Also notable for bipolar disorder, cognitive impairment secondary to multiple sclerosis, hypothyroidism, irritable bowel syndrome, asthma, gastroesophageal reflux. CURRENT MEDICATIONS: Reviewed and she is written for: 1. Carbamazepine 100 mg 1 p.o. daily. 2. Baclofen 40 mg p.o. b.i.d. 3. Amantadine 100 mg p.o. b.i.d., which has been held. 4. Brexpiprazole 1 mg p.o. daily. 5. Vitamin B12 1000 mcg p.o. daily. 6. Colace 100 mg p.o. daily. 7. Lovenox 40 mg subcutaneous daily. 8. Levothyroxine 88 mcg p.o. daily. 9. [place] extended release 900 mg p.o. at bedtime. 10. Ditropan XL 5 mg p.o. at bedtime. 11. Protonix 40 mg p.o. daily. 12. Zosyn per pharmacy dosing guidelines. 13. Lyrica 25 mg p.o. at bedtime. 14. Vilazodone 40 mg p.o. daily. REVIEW OF SYSTEMS: Notable for nausea, which is better this afternoon than it was earlier. She just started taking some clear liquids. She has chronic double vision. She gets occasional leg spasms, but not recently. She has chronically poor memory. She has had recurrent urinary tract infections. PHYSICAL EXAM: She is obese. Temperature 98.1, blood pressure 122/72, heart rate in the 70s and regular, respiratory rate is 17, and oxygen saturation is 100% on room air. Heart tones are normal. Lungs are clear. There are no cervical bruits. Oral mucosa is moist. On neurological exam, there is a left internuclear ophthalmoplegia. Pupils react equally. She has sustained nystagmus in upgaze and in the left gaze. Facial musculature is symmetric. Speech is mildly dysarthric. Motor exam reveals pain with testing about the right shoulder. She has good resistive strength in the upper extremities otherwise. In the lower extremities , she has barely antigravity right hip flexor weakness, grade 4 to 4- left hip flexor weakness. She has grade 3 right ankle dorsiflexor weakness, grade 4 left ankle dorsiflexor weakness. She has dysmetria on [id number] maneuver on the left much more than the right. There is no spasticity in the limbs. She is alert and oriented to person and place. She is a poor historian and does not know the dosing of her medications. Language is fluent, but attention and concentration are poor. IMPRESSION AND PLAN: Impression is that of secondary progressive multiple sclerosis. There are no contraindications to general surgery including general anesthesia. Baclofen should be maintained as baclofen withdrawal can produce pretty severe muscle spasms and even seizures. Her carbamazepine should be at least 200 mg twice per day, which is the last record I have of the dosing that she was on when she was in the hospital earlier this year. There is no evidence of multiple sclerosis exacerbation. I do not see any indication for steroids in that regard. She is not on any multiple sclerosis preventatives. Please feel free to call if any specific questions. [id number]/[facility] #: [id number] SHIRA
[2019-06-23] MEDS: Oxybutynin XL TAB* 5 MG PO SCH (20:31)
[2019-06-23] MEDS: Lithium Carbonate ER* 450 MG TAB.ER PO SCH (20:39)
[2019-06-23] MEDS: Pregabalin 25 mg CAP (*) PO SCH (20:39)
[2019-06-24] MEDS: ZOSYN 3.375 GM Q8H per EXTENDED INFUSION IVPB SCH ×4 (00:12→09:33)
[2019-06-24] MEDS: NS 0.9% 1000 ML** 1,000 ML IV SCH ×2 (02:58→20:55)
[2019-06-24] MEDS: Ondansetron INJ* 2 MG/ML VIAL IV PRN ×2 (03:33→21:05)
[2019-06-24] MEDS: Levothyroxine TAB* 88 MCG TAB PO SCH (05:14)
[2019-06-24 06:09] LABS: ABS Lymphocytes 1.4 10^3/ul (1.0-4.8); ABS Monocytes 0.4 10^3/ul (0-0.8); ABS Neutrophils 2.2 10^3/ul (1.5-7.7); Hematocrit 39 % (35-47); Hemoglobin 13.1 g/dL (12.0-16.0); Lymphocyte % 35.2 %; Mean Corpuscular HGB Conc 34 g/dL (31-36); Mean Corpuscular Hemoglobin 31 pg (27-31); Mean Corpuscular Volume 92 fL (80-97); Mean Platelet Volume 7.9 fL (7.4-10.4); Nucleated Red Blood Cells % 0.1; Platelet Count 284 10^3/uL (150-450); Red Blood Count 4.23 10^6 /uL (3.70-4.87); Red Cell Distribution Width 15 % (10-15)
[2019-06-24 06:27] LABS: Albumin 3.9 g/dL (3.2-5.2); Albumin/Globulin Ratio 1.8 (1-3); BUN/Creatinine Ratio 7.4 (8-20); EGFR African American 110.8 (>60); EGFR Non-African American 91.6 (>60); Globulin 2.2 g/dL (2-4); Magnesium 1.9 mg/dL (1.9-2.7); Potassium 3.6 mmol/L (3.5-5.0); Total Bilirubin 0.6 mg/dL (0.2-1.0); Total Protein 6.1 g/dL (6.4-8.9)
[2019-06-24] MEDS: Amantadine CAP* 100 MG PO SCH ×2 (08:52→20:57)
[2019-06-24] MEDS: Cyanocobalamin TAB* 500 MCG PO SCH (08:52)
[2019-06-24] MEDS: Pantoprazole TAB * 40 MG TAB PO SCH (08:52)
[2019-06-24] MEDS: CMCS:Vilazodone (NF) 40 MG TAB PO SCH (09:33)
[2019-06-24] MEDS: BREXPIPRAZOLE 1 MG PO SCH (09:33)
[2019-06-24] MEDS: carBAMazepine TAB(*) 200 MG PO SCH ×2 (09:33→21:04)
[2019-06-24] MEDS: Baclofen TAB* 20 MG PO SCH ×2 (09:33→21:04)
[2019-06-24] MEDS ORDERED: Bupivacaine 0.25% EPI 200,000* 30 ML SDV ONE (09:44)
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
--- NOTE | 2019-06-24 10:04 | PN ---
Progress Note - Progress Note Date of Service: 06/24/19 SOAP: Subjective: Doing well-still with some nausea Mild right sided abdominal pain Objective: Temp Pulse Resp BP Pulse Ox 96.9 F 57 14 121/63 98 06/24/19 07:39 06/24/19 07:39 06/24/19 07:39 06/24/19 07:39 06/24/19 07:39 PEX: Comfortable Abd is soft and non-distended. Bowel sounds are present. Mild tenderness right mid quadrant. Laboratory Results - last 24 hr 06/24/19 06/24/19 05:51 05:51 WBC 4.0 RBC 4.23 Hgb 13.1 Hct 39 MCV 92 MCH 31 MCHC 34 RDW 15 Plt Count 284 MPV 7.9 Neut % (Auto) 54.7 Lymph % (Auto) 35.2 [place] % (Auto) 9.4 Eos % (Auto) 0.0 Baso % (Auto) 0.7 Absolute Neuts (auto) 2.2 Absolute Lymphs (auto) 1.4 Absolute Monos (auto) 0.4 Absolute Eos (auto) 0.0 Absolute Basos (auto) 0.0 Absolute Nucleated RBC 0.0 Nucleated RBC % 0.1 Sodium 142 Potassium 3.6 Chloride 110 Carbon Dioxide 26 Anion Gap 6 BUN 5 L Creatinine 0.68 Est GFR ( Amer) 110.8 Est GFR (Non-Af Amer) 91.6 BUN/Creatinine Ratio 7.4 L Glucose 93 Calcium 9.0 Magnesium 1.9 Total Bilirubin 0.60 AST 33 ALT 48 Alkaline Phosphatase 168 H Total Protein 6.1 L Albumin 3.9 Globulin 2.2 Albumin/Globulin Ratio 1.8 Assessment: Right upper quadrant abdominal pain-gallstones Elevated LFT's, normalizing--suspect passed gallstones MS Plan: Laparoscopic cholecystectomy with cholangiogram today--procedure discussed with patient in detail-risks of, but not limited to, of bleeding, infection, abscess , open procedure, injury to peritoneal and retroperitoneal structures, common bile duct injury, open procedure, anesthesia, blood clot, and the possibility that removing her gallbladder may not improve her pain. She has been seen by Neurology yesterday and she is felt to be an acceptable operative candidate.
[2019-06-24] MEDS ORDERED: Iohexol 180 (CONTRAST) 10 ML SDV IV ONE ×2 (10:12→12:34)
[2019-06-24] MEDS ORDERED: Iodixanol 320 (CONTRAST) 100 ML SDV ONE (10:13)
[2019-06-24] MEDS ORDERED: fentaNYL* 50 MCG/ML 2 ML VIAL (100 MCG VIAL) ONE ×4 (10:23→13:29)
[2019-06-24] MEDS ORDERED: Midazolam* 1 MG/ML 2 ML VIAL (2 MG) ONE (10:23)
[2019-06-24] MEDS ORDERED: Buffered Lidocaine 1% SYRIN* 1 ML/SYRINGE INTRADERM ONE (10:31)
[2019-06-24] MEDS ORDERED: Famotidine IV* 10 MG/ML 2 ML (20 mg) ONE (10:45)
[2019-06-24] MEDS ORDERED: Lactated Ringers 1000 ML Bag* 1,000 ML IV SCH (11:00)
[2019-06-24] MEDS ORDERED: Lidocaine 2% PF * 5 ML VIAL ONE (11:17)
[2019-06-24] MEDS ORDERED: Rocuronium* 10 MG/ML VIAL ONE (11:18)
[2019-06-24] MEDS ORDERED: Propofol* 10 MG/ML 20 ML BTL ONE (11:18)
[2019-06-24] MEDS ORDERED: Ondansetron INJ* 2 MG/ML VIAL ONE ×2 (11:18→13:33)
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
[2019-06-24] MEDS ORDERED: Naloxone* 0.4 MG/ML 1 ML VIAL IV PRN (12:04)
[2019-06-24] MEDS ORDERED: Morphine 4 MG/ML VIAL (1 ml) 4 MG/ML VIAL IV PRN (12:04)
[2019-06-24] MEDS ORDERED: diPHENhydraMINE IV* 50 MG/ML 1 ml VIAL (BENADRYL) IV PRN (12:04)
[2019-06-24] MEDS ORDERED: Ondansetron INJ* 2 MG/ML VIAL IV PRN (12:04)
[2019-06-24] MEDS ORDERED: Levalbuterol 0.63MG/3ML NEB* UNIT OF USE INH PRN (12:04)
--- NOTE | 2019-06-24 13:18 | BRIEFOPN ---
Brief Operative/Procedure Note - Operation Details Pre-Op Diagnosis: RUQ pain and cholelithiasis Post-Op Diagnosis: RUQ pain and cholelithiasis, dilated common duct on cholangiogram without evidence of choledocholithiasis Procedures: Cholecystectomy with cholangiogram Surgeon(s)/Proceduralists: Dr. Cabrales. Assist: LALI Walters Anesthesia: GETA. IVF 2 liters Estimated Blood Loss: <50cc Findings: As above Specimen(s)/Culture(s) Description: Gallbladder Complications: None
[2019-06-24] MEDS: fentaNYL* 50 MCG/ML 2 ML VIAL (100 MCG VIAL) IV PRN ×2 (13:30→14:04)
[2019-06-24] MEDS: Morphine INJ* 4 MG/ML 1 ML SYRINGE (NEW SYRINGE VERSION) IV PRN (17:56)
[2019-06-24] MEDS: Oxybutynin XL TAB* 5 MG PO SCH (20:57)
[2019-06-24] MEDS: Lithium Carbonate ER* 450 MG TAB.ER PO SCH (21:04)
[2019-06-24] MEDS: Pregabalin 25 mg CAP (*) PO SCH (21:04)
[2019-06-24] MEDS: oxyCODONE/Acetamin 5/325 MG* TAB PO PRN (21:04)
--- NOTE | 2019-06-25 01:28 | OP ---
CC: Dr. Tim Lara in Neurology * DATE OF OPERATION: 06/24/18 - ROOM #340 DATE OF : 68 SURGEON: Artur Cabrales MD LINING SEWER: LALI Colvin ANESTHESIOLOGIST: Dr. Prescott. ANESTHESIA: General with local. PRE-OP DIAGNOSES: Cholelithiasis and right upper quadrant abdominal pain. POST-OP DIAGNOSES: 1. Cholelithiasis and right upper quadrant abdominal pain. 2. Dilated common bile duct noted on intraoperative cholangiogram but no obvious evidence of common bile duct filling defect. OPERATIVE PROCEDURE: Laparoscopic cholecystectomy with intraoperative cholangiogram. ESTIMATED BLOOD LOSS: Minimal. IV FLUIDS: 1 L of crystalloid. SPECIMENS: Gallbladder. WOUND CLASSIFICATION: II. COMPLICATIONS: None. DRAINS: None. BRIEF HISTORY: Ms. Cisneros is a 49-year-old woman with end-stage multiple sclerosis admitted with severe right upper quadrant abdominal pain. She was noted to have elevated liver transaminases and alkaline phosphatase but normal bilirubin. An ultrasound showed gallstones with dilated bile duct. This was confirmed with an MRCP but no filling defect. Liver transaminases has slowly improved to normal over the past 3 days and she is having persistent discomfort. She is now to undergo laparoscopic cholecystectomy. FINDINGS: The gallbladder had multiple gallstones in the lumen. No evidence of chronic cholecystitis. The cystic duct was of normal caliber. However, the common bile duct appeared to be markedly dilated on the cholangiogram, but no evidence of filling defects and there was flow of contrast into the duodenum. DESCRIPTION OF PROCEDURE: Written informed consent was obtained, the abdomen was marked with indelible ink and preoperative antibiotics were administered. The patient was taken to the operating room and placed in the supine position. Sequential compression devices and a warming blanket were applied. General anesthesia was administered. Then the abdomen was prepped and draped in the usual sterile fashion. A time-out verification was completed. A small transverse incision was made just above the umbilicus and the peritoneal cavity was entered under direct vision. A 12 mm blunt port was inserted and the abdomen was insufflated to 15 mmHg. Under direct vision, an 11 mm epigastric port was placed and two 5 mm ports were placed in the right side of the abdominal wall. The gallbladder was identified. It was distended and bluish in color with mildly thickened wall but no findings consistent with acute or severe chronic cholecystitis. It was elevated up over the liver bed and the peritoneum along the infundibulum was divided using cautery and was swept down to identify the infundibulum and the proximal cystic duct. The proximal cystic duct was quite dilated and with care, I was able to identify the cystic artery and I took a considerable portion of the inferior part of the gallbladder off the liver bed using the critical view technique to assure myself of these 2 structures. With further careful dissection following the infundibulum and cystic duct down into the portal area, the cystic duct did begin to taper down to a more normal size. It was apparent that there were stones throughout the gallbladder itself and in the cystic duct. At this point, a small incision was made in the very proximal cystic duct and a 4- Italian ureteral catheter was used to perform a cholangiogram. This was done with fluoroscopy. This showed free flow of contrast into the duodenum; however , there was dilated common bile duct but tapering down into the duodenum without filling defect. The more proximal hepatic ducts, however, did not show significant dilation or obvious filling defect. Once this was complete, I triply clipped the cystic duct with a 10 mm clip statistical modeler. This clips crossed the duct nicely. The cystic artery was then doubly clipped and divided. The gallbladder was removed from the liver bed using cautery and placed in EndoCatch bag and brought out through the umbilical incision. Hemostasis was assured. All ports were removed under direct vision of the camera. There was no abdominal wall bleeding. The umbilical fascia was closed with interrupted 0 Vicryl suture. The skin at all 4 incisions was approximated with subcuticular 4-0 Vicryl suture. Steri-Strips were applied. The patient tolerated the procedure well and was taken to the recovery room in stable condition. [id number]/[facility] #: [id number] SHIRA
[2019-06-25] MEDS: Levothyroxine TAB* 88 MCG TAB PO SCH (06:19)
[2019-06-25 07:28] LABS: Albumin 3.4 g/dL (3.2-5.2); Albumin/Globulin Ratio 1.5 (1-3); Globulin 2.2 g/dL (2-4); Indirect Bilirubin 0.3 mg/dL (0.3-1.0); Total Bilirubin 0.4 mg/dL (0.2-1.0); Total Protein 5.6 g/dL (6.4-8.9)
[2019-06-25] MEDS: CMCS:Vilazodone (NF) 40 MG TAB PO SCH (09:01)
[2019-06-25] MEDS: carBAMazepine TAB(*) 200 MG PO SCH ×2 (09:02→21:46)
[2019-06-25] MEDS: BREXPIPRAZOLE 1 MG PO SCH (09:02)
[2019-06-25] MEDS: oxyCODONE/Acetamin 5/325 MG* TAB PO PRN ×3 (09:02→19:54)
[2019-06-25] MEDS: Pantoprazole TAB * 40 MG TAB PO SCH (09:02)
[2019-06-25] MEDS: Amantadine CAP* 100 MG PO SCH ×2 (09:02→21:45)
[2019-06-25] MEDS: Baclofen TAB* 20 MG PO SCH ×2 (09:02→21:46)
[2019-06-25] MEDS: Cyanocobalamin TAB* 500 MCG PO SCH (09:03)
[2019-06-25] MEDS: Ondansetron INJ* 2 MG/ML VIAL IV PRN ×2 (09:06→21:44)
[2019-06-25] MEDS: NS 0.9% 1000 ML** 1,000 ML IV SCH ×2 (10:12→23:43)
[2019-06-25] MEDS: Enoxaparin(*) 40 MG/0.4 ML SYR SUBCUT SCH (11:22)
--- NOTE | 2019-06-25 12:50 | PN ---
Progress Note - Progress Note Date of Service: 06/25/19 Note: Surgery Progress Note S: Patient is sitting up comfortably in a chair. She doesn't have much of an appetite. Has pain around her incisions. No nausea/emesis. O: Vital Signs - 24 hr 06/24/19 06/24/19 06/24/19 13:16 13:20 13:25 Temperature 97.5 F Pulse Rate 76 71 79 Respiratory 16 16 18 Rate Blood Pressure 151/79 151/79 138/74 (mmHg) O2 Sat by Pulse 100 100 98 Oximetry 06/24/19 06/24/19 06/24/19 13:30 13:35 13:40 Temperature Pulse Rate 72 73 72 Respiratory 18 25 23 Rate Blood Pressure 134/71 133/80 136/77 (mmHg) O2 Sat by Pulse 98 98 98 Oximetry 06/24/19 06/24/19 06/24/19 13:45 13:50 13:55 Temperature Pulse Rate 68 69 71 Respiratory 19 23 Rate Blood Pressure 137/80 139/77 142/71 (mmHg) O2 Sat by Pulse 97 97 97 Oximetry 06/24/19 06/24/19 06/24/19 14:02 14:04 14:15 Temperature Pulse Rate 79 76 67 Respiratory 18 Rate Blood Pressure 143/58 139/80 (mmHg) O2 Sat by Pulse 100 99 99 Oximetry 06/24/19 06/24/19 06/24/19 14:30 15:00 15:25 Temperature 98.2 F Pulse Rate 68 65 65 Respiratory 16 Rate Blood Pressure 146/82 139/82 136/68 (mmHg) O2 Sat by Pulse 97 96 99 Oximetry 06/24/19 06/24/19 06/24/19 16:34 17:41 17:56 Temperature 98.2 F 98.4 F Pulse Rate 71 71 Respiratory 20 16 16 Rate Blood Pressure 127/64 131/73 (mmHg) O2 Sat by Pulse 98 100 Oximetry 06/24/19 06/24/19 06/24/19 19:13 19:48 20:00 Temperature 99.2 F Pulse Rate 72 Respiratory 16 14 14 Rate Blood Pressure 128/65 (mmHg) O2 Sat by Pulse 98 Oximetry 06/24/19 06/24/19 06/24/19 21:04 23:28 23:30 Temperature 98.7 F Pulse Rate 81 Respiratory 16 16 16 Rate Blood Pressure 116/61 (mmHg) O2 Sat by Pulse 94 Oximetry 06/24/19 06/25/19 06/25/19 23:35 00:00 00:26 Temperature Pulse Rate Respiratory 16 Rate Blood Pressure (mmHg) O2 Sat by Pulse 94 94 Oximetry 06/25/19 06/25/19 06/25/19 02:00 04:00 07:53 Temperature 98.5 F 98.9 F Pulse Rate 75 73 Respiratory 16 16 16 Rate Blood Pressure 123/57 121/66 (mmHg) O2 Sat by Pulse 95 95 Oximetry 06/25/19 06/25/19 06/25/19 08:00 09:02 11:20 Temperature Pulse Rate Respiratory 18 18 16 Rate Blood Pressure (mmHg) O2 Sat by Pulse 95 Oximetry 06/25/19 11:52 Temperature 97.9 F Pulse Rate 74 Respiratory 16 Rate Blood Pressure 114/55 (mmHg) O2 Sat by Pulse 97 Oximetry Laboratory Results - last 24 hr 06/25/19 06:51 Total Bilirubin 0.40 Direct Bilirubin 0.10 Indirect Bilirubin 0.3 AST 23 ALT 35 Alkaline Phosphatase 153 H Total Protein 5.6 L Albumin 3.4 Globulin 2.2 Albumin/Globulin Ratio 1.5 Intake & Output 06/24/19 06/25/19 06/25/19 22:59 06:59 14:59 Intake Total 427 974 5049 Output Total 200 400 Balance 988 347 2026 Intake: IV Fluids 980 NS (0.9%) 980 Oral 300 100 600 Output: Urine 200 400 Other: Estimated Void Large Medium Medium # Voids 1 1 1 Physical exam: Abdomen- soft, appropriately tender around incisions. lap incisions c/d/i with steristrips in place A/P: 49 F with multiple sclerosis, POD 1 from laparoscopic cholecystecomty and IOC, doing well. - LFTs have almost normalized alk phos continues to downtrend. - Continue regular diet - Dispo planning, per patient she will be going to [facility] on Thursday - Please have patient follow up with Dr. Cabrales in the office 2 weeks after surgery for a post operative visit. Feel free to call surgery with any further questions.
--- NOTE | 2019-06-25 16:55 | PN ---
Subjective Date of Service: 06/25/19 Interval History: no acute events overnight. POD #1 from lap niesha. Afebrile. LFTs downtrending. Chills. 8/10 pain near RUQ incision site. Denies improvement with pain meds. Slight nausea no vomiting. Family History: Unchanged from Admission Social History: Unchanged from Admission Past Medical History: Unchanged from Admission Objective Active Medications: Acetaminophen (Tylenol Tab*) 650 mg PO Q6H PRN PRN Reason: PAIN - MILD Last Admin: 06/23/19 23:21 Dose: 650 mg Amantadine HCl (Symmetrel Cap*) 100 mg PO BID [facility] Last Admin: 06/25/19 09:02 Dose: 100 mg Baclofen (Lioresal Tab*) 20 mg PO BID [facility] Last Admin: 06/25/19 09:02 Dose: 20 mg Brexpiprazole (Rexulti) 1 mg PO DAILY [facility] Last Admin: 06/25/19 09:02 Dose: 1 mg Carbamazepine (Tegretol Tab(*)) 200 mg PO BID [facility] Last Admin: 06/25/19 09:02 Dose: 200 mg Cyanocobalamin (Vitamin B12 Tab*) 1,000 mcg PO DAILY [facility] Last Admin: 06/25/19 09:03 Dose: 1,000 mcg Docusate Sodium (Colace Cap*) 100 mg PO DAILY PRN PRN Reason: CONSTIPATION Enoxaparin Sodium (Lovenox(*)) 40 mg SUBCUT Q24H [facility] Last Admin: 06/25/19 11:22 Dose: 40 mg Sodium Chloride (Ns 0.9% 1000 Ml) 1,000 mls @ 75 mls/hr IV PER RATE [facility] Last Admin: 06/25/19 10:12 Dose: 75 mls/hr Levothyroxine Sodium (Synthroid Tab*) 88 mcg PO 0600 [facility] Last Admin: 06/25/19 06:19 Dose: 88 mcg [place] Carbonate ([place] Carbonate Er Tab*) 900 mg PO BEDTIME [facility]; Protocol Last Admin: 06/24/19 21:04 Dose: 900 mg Morphine Sulfate (Morphine Inj (Syringe)*) 4 mg IV Q2H PRN PRN Reason: PAIN - SEVERE Last Admin: 06/24/19 17:56 Dose: 4 mg Ondansetron HCl (Zofran Inj*) 4 mg IV Q4H PRN PRN Reason: NAUSEA/VOMITING Last Admin: 06/25/19 09:06 Dose: 4 mg Oxybutynin Chloride (Ditropan Xl Tab*) 5 mg PO BEDTIME [facility] Last Admin: 06/24/19 20:57 Dose: Not Given Oxycodone/Acetaminophen (Percocet 5/325 Tab*) 1 tab PO Q4H PRN PRN Reason: PAIN - MODERATE Last Admin: 06/25/19 14:55 Dose: 1 tab Pantoprazole Sodium (Protonix Tab*) 40 mg PO DAILY [facility] Last Admin: 06/25/19 09:02 Dose: 40 mg Polyethylene Glycol/Electrolytes (Miralax*) 17 gm PO DAILY PRN PRN Reason: CONSTIPATION Pregabalin (Lyrica 25 Mg Cap (*)) 25 mg PO BEDTIME [facility] Last Admin: 06/24/19 21:04 Dose: 25 mg Senna (Senokot 8.6 Mg Tab*) 2 tab PO BEDTIME PRN PRN Reason: CONSTIPATION Vilazodone HCl (Viibryd (Nf)) 40 mg PO DAILY [facility] Last Admin: 06/25/19 09:01 Dose: 40 mg Vital Signs - 8 hr 06/25/19 06/25/19 06/25/19 09:02 11:20 11:52 Temperature 97.9 F Pulse Rate 74 Respiratory 18 16 16 Rate Blood Pressure 114/55 (mmHg) O2 Sat by Pulse 97 Oximetry 06/25/19 06/25/19 06/25/19 14:55 16:00 16:03 Temperature 97.9 F Pulse Rate 70 Respiratory 18 16 Rate Blood Pressure 116/59 (mmHg) O2 Sat by Pulse 99 99 Oximetry Oxygen Devices in Use Now: None Appearance: NAD Eyes: No Scleral Icterus Neck: NL Appearance and Movements; NL JVP Respiratory: Symmetrical Chest Expansion and Respiratory Effort, Clear to Auscultation Cardiovascular: NL Sounds; No Murmurs; No JVD Abdominal: - - incisions c/d/i. points to RUQ inciscion as painful. also in epigastric with palpation. Extremities: No Edema Skin: No Rash or Ulcers Neurological: Alert and Oriented x 3 Nutrition: Taking PO's Result Diagrams: 06/24/19 05:51 06/24/19 05:51 Additional Lab and Data: lipase normal Laboratory Results - last 24 hr 06/25/19 06:51 Total Bilirubin 0.40 Direct Bilirubin 0.10 Indirect Bilirubin 0.3 AST 23 ALT 35 Alkaline Phosphatase 153 H Total Protein 5.6 L Albumin 3.4 Globulin 2.2 Albumin/Globulin Ratio 1.5 Microbiology and Other Data: Microbiology 06/21/19 17:49 Urine Urine Culture - Final No Growth (<1,000 CFU/mL) 06/22/19 01:25 Nasal Nasal Screen MRSA (PCR) - Final Mrsa Not Detected Diagnostic Imaging: US abdomen: 1. cholelithiasis with positive sonographic villa's sign 2. Biliary dilatation without demonstrated obstructing stone. MRCP: 1. cholilithiasis 2. Dilated common bile duct 14mm. but no choledocholithiasis, no ampullaruy mass or pancreatic head mas. Assess/Plan/Problems-Billing Assessment: 49 y.o female with PMH of MS, who presented with ER with RUQ abd pain found to have cholelithesis and concern for passed CBD stone. now s/p lap niesha on 06/24 - Patient Problems (1) RUQ abdominal pain Current Visit: Yes Status: Acute Code(s): R10.11 - RIGHT UPPER QUADRANT PAIN SNOMED Code(s): 952890831 Comment: - POD1 for lap niesha for cholelithiasis/biliary colic - HIDA scan normal - s/p zosn - Most likely diagnosis is passed CBD stone (2) Multiple sclerosis Current Visit: No Status: Chronic Code(s): G35 - MULTIPLE SCLEROSIS SNOMED Code(s): 26355880 Comment: stable -not in exacerbation - Advanced, Secondary progressive and refractory to treatment - Continue symptomatic management for spasms (baclofen amentadine), pain and alertness. - Appreciate Dr. Devi fontana. (3) Depression Current Visit: No Status: Chronic Code(s): F32.9 - MAJOR DEPRESSIVE DISORDER , SINGLE EPISODE, UNSPECIFIED SNOMED Code(s): 39077970 Comment: - Appreciate Psych recs (Dr. Bustamante) - Continue Chronic Medications at this time (Rexulti, [place], Viibryd), no SI/ HI - Follow up outpatient TCM (4) DVT prophylaxis Current Visit: No Status: Acute Priority: Medium Code(s): YYE8430 - SNOMED Code(s): 978655271 Comment: - History of DVT. - Lovenox resumed (5) DNR (do not resuscitate) Current Visit: No Status: Acute Status and Disposition: inpatient - discharge when medically stable, likely back to [facility] 06/27.
[2019-06-25] MEDS: Morphine INJ* 4 MG/ML 1 ML SYRINGE (NEW SYRINGE VERSION) IV PRN ×2 (18:25→21:24)
[2019-06-25] MEDS: Oxybutynin XL TAB* 5 MG PO SCH (21:45)
[2019-06-25] MEDS: Lithium Carbonate ER* 450 MG TAB.ER PO SCH (21:46)
[2019-06-25] MEDS: Pregabalin 25 mg CAP (*) PO SCH (21:46)
[2019-06-26] MEDS: oxyCODONE/Acetamin 5/325 MG* TAB PO PRN ×3 (03:48→20:13)
--- NOTE | 2019-06-26 06:03 | PN ---
Resident Interval ProgressNote Date of Service: 06/26/19 Called to see patient for right shoulder pain and right side abdominal pain. POD#2 lap niesha started to have right shoulder pain / for 1 hour also right upper quadrant abdominal pain also complains of breathing difficulty with the pain denied chest pain, palpitation, light headedness PE H S1S2 no murmur L clear A: diffuse tenderness, more prominent over RUQ, abdomen soft otherwise MSK: paraspinal tenderness bilaterally, more on right side. Right shoulder, unable to do active movement, passive movement-tenderness when lifting shoulder up >100 degrees EKG: sinus rhythm with no ST changes A+P Right shoulder pain likely msk vs tendonitis - however cardiac causes need to be ruled out, EKG is reassuring ,I will do trop to rule it out - will also do shoulder x ray - muscle relaxant
[2019-06-26] MEDS: Levothyroxine TAB* 88 MCG TAB PO SCH (06:17)
[2019-06-26 06:19] LABS: ABS Basophils 0.1 10^3/ul (0-0.2); ABS Monocytes 0.6 10^3/ul (0-0.8); ABS Neutrophils 3.7 10^3/ul (1.5-7.7); Eosinophil % 0.1 %; Hematocrit 36 % (35-47); Hemoglobin 11.9 g/dL (12.0-16.0); Lymphocyte % 18.8 %; Mean Corpuscular HGB Conc 33 g/dL (31-36); Mean Corpuscular Hemoglobin 31 pg (27-31); Mean Corpuscular Volume 94 fL (80-97); Mean Platelet Volume 7.9 fL (7.4-10.4); Nucleated Red Blood Cells % 0.1; Platelet Count 250 10^3/uL (150-450); Red Blood Count 3.82 10^6 /uL (3.70-4.87); Red Cell Distribution Width 15 % (10-15); White Blood Count 5.4 10^3/uL (3.5-10.8)
[2019-06-26 06:40] LABS: BUN/Creatinine Ratio 2.9 (8-20); EGFR Non-African American 90.1 (>60); Potassium 3.2 mmol/L (3.5-5.0)
[2019-06-26] MEDS: CMCS:Vilazodone (NF) 40 MG TAB PO SCH (08:31)
[2019-06-26] MEDS: BREXPIPRAZOLE 1 MG PO SCH (08:32)
[2019-06-26] MEDS: Amantadine CAP* 100 MG PO SCH ×2 (08:32→20:13)
[2019-06-26] MEDS: Baclofen TAB* 20 MG PO SCH ×2 (08:32→20:14)
[2019-06-26] MEDS: Pantoprazole TAB * 40 MG TAB PO SCH (08:32)
[2019-06-26] MEDS: carBAMazepine TAB(*) 200 MG PO SCH ×2 (08:32→20:13)
[2019-06-26] MEDS: Cyanocobalamin TAB* 500 MCG PO SCH (08:32)
[2019-06-26] MEDS: Ondansetron INJ* 2 MG/ML VIAL IV PRN ×2 (08:37→20:16)
[2019-06-26] MEDS ORDERED: Potassium Chloride* LIQUID 20 MEQ/15 ML UDC PO ONE ×2 (10:10→14:00)
[2019-06-26 10:35] LABS: Magnesium 1.8 mg/dL (1.9-2.7)
[2019-06-26] MEDS: Enoxaparin(*) 40 MG/0.4 ML SYR SUBCUT SCH (11:25)
[2019-06-26] MEDS ORDERED: Magnesium Sulfate 2 GM IV* 2 GM/50 ML BAG IVPB ONE (12:11)
[2019-06-26] MEDS: NS 0.9% 1000 ML** 1,000 ML IV SCH (12:44)
--- NOTE | 2019-06-26 17:30 | PN ---
Subjective Date of Service: 06/26/19 Interval History: Complaint of right shoulder pain and abdominal pain overnight. Shoulder Xray w/ o acute process Hx of frozen shoulder many years ago, does not feel like that. Tmax 99 ("normal temperature for her is 97.2). Urinating a lot with the IVF. Abdominal pain is a bit better. Family History: Unchanged from Admission Social History: Unchanged from Admission Past Medical History: Unchanged from Admission Objective Active Medications: Acetaminophen (Tylenol Tab*) 650 mg PO Q6H PRN PRN Reason: PAIN - MILD Last Admin: 06/23/19 23:21 Dose: 650 mg Amantadine HCl (Symmetrel Cap*) 100 mg PO BID [facility] Last Admin: 06/26/19 08:32 Dose: 100 mg Baclofen (Lioresal Tab*) 20 mg PO BID [facility] Last Admin: 06/26/19 08:32 Dose: 20 mg Brexpiprazole (Rexulti) 1 mg PO DAILY [facility] Last Admin: 06/26/19 08:32 Dose: 1 mg Carbamazepine (Tegretol Tab(*)) 200 mg PO BID [facility] Last Admin: 06/26/19 08:32 Dose: 200 mg Cyanocobalamin (Vitamin B12 Tab*) 1,000 mcg PO DAILY [facility] Last Admin: 06/26/19 08:32 Dose: 1,000 mcg Docusate Sodium (Colace Cap*) 100 mg PO DAILY PRN PRN Reason: CONSTIPATION Enoxaparin Sodium (Lovenox(*)) 40 mg SUBCUT Q24H [facility] Last Admin: 06/26/19 11:25 Dose: 40 mg Levothyroxine Sodium (Synthroid Tab*) 88 mcg PO 0600 [facility] Last Admin: 06/26/19 06:17 Dose: 88 mcg [place] Carbonate ([place] Carbonate Er Tab*) 900 mg PO BEDTIME [facility]; Protocol Last Admin: 06/25/19 21:46 Dose: 900 mg Morphine Sulfate (Morphine Inj (Syringe)*) 4 mg IV Q2H PRN PRN Reason: PAIN - SEVERE Last Admin: 06/25/19 21:24 Dose: 4 mg Ondansetron HCl (Zofran Inj*) 4 mg IV Q4H PRN PRN Reason: NAUSEA/VOMITING Last Admin: 06/26/19 08:37 Dose: 4 mg Oxybutynin Chloride (Ditropan Xl Tab*) 5 mg PO BEDTIME [facility] Last Admin: 06/25/19 21:45 Dose: 5 mg Oxycodone/Acetaminophen (Percocet 5/325 Tab*) 1 tab PO Q4H PRN PRN Reason: PAIN - MODERATE Last Admin: 06/26/19 11:25 Dose: 1 tab Pantoprazole Sodium (Protonix Tab*) 40 mg PO DAILY [facility] Last Admin: 06/26/19 08:32 Dose: 40 mg Polyethylene Glycol/Electrolytes (Miralax*) 17 gm PO DAILY PRN PRN Reason: CONSTIPATION Pregabalin (Lyrica 25 Mg Cap (*)) 25 mg PO BEDTIME [facility] Last Admin: 06/25/19 21:46 Dose: 25 mg Senna (Senokot 8.6 Mg Tab*) 2 tab PO BEDTIME PRN PRN Reason: CONSTIPATION Vilazodone HCl (Viibryd (Nf)) 40 mg PO DAILY [facility] Last Admin: 06/26/19 08:31 Dose: 40 mg Vital Signs - 8 hr 06/26/19 06/26/19 06/26/19 11:25 11:35 13:47 Temperature 98.6 F Pulse Rate 74 Respiratory 18 16 18 Rate Blood Pressure 120/72 (mmHg) O2 Sat by Pulse 100 Oximetry 06/26/19 15:57 Temperature 98.3 F Pulse Rate 72 Respiratory 16 Rate Blood Pressure 118/66 (mmHg) O2 Sat by Pulse 100 Oximetry Oxygen Devices in Use Now: None Appearance: NAD, sitting in chair. Ears/Nose/Mouth/Throat: NL Teeth, Lips, Gums Neck: NL Appearance and Movements; NL JVP Respiratory: Symmetrical Chest Expansion and Respiratory Effort, Clear to Auscultation Cardiovascular: NL Sounds; No Murmurs; No JVD Abdominal: - - slight pain to palpatoin between the two incisions in RUQ. c/d/i Extremities: No Edema Skin: No Rash or Ulcers Neurological: Alert and Oriented x 3 Nutrition: Taking PO's Result Diagrams: 06/26/19 06:14 06/26/19 06:14 Additional Lab and Data: lipase normal Laboratory Results - last 24 hr 06/26/19 06/26/19 06:14 06:14 WBC 5.4 RBC 3.82 Hgb 11.9 L Hct 36 MCV 94 MCH 31 MCHC 33 RDW 15 Plt Count 250 MPV 7.9 Neut % (Auto) 68.3 Lymph % (Auto) 18.8 [place] % (Auto) 11.7 Eos % (Auto) 0.1 Baso % (Auto) 1.1 Absolute Neuts (auto) 3.7 Absolute Lymphs (auto) 1.0 Absolute Monos (auto) 0.6 Absolute Eos (auto) 0.0 Absolute Basos (auto) 0.1 Absolute Nucleated RBC 0.0 Nucleated RBC % 0.1 Sodium 143 Potassium 3.2 L Chloride 109 Carbon Dioxide 28 Anion Gap 6 BUN 2 L Creatinine 0.69 Est GFR ( Amer) 109.0 Est GFR (Non-Af Amer) 90.1 BUN/Creatinine Ratio 2.9 L Glucose 92 Calcium 9.0 Magnesium 1.8 L Troponin I 0.00 Microbiology and Other Data: Microbiology 06/21/19 17:49 Urine Urine Culture - Final No Growth (<1,000 CFU/mL) 06/22/19 01:25 Nasal Nasal Screen MRSA (PCR) - Final Mrsa Not Detected Diagnostic Imaging: US abdomen: 1. cholelithiasis with positive sonographic villa's sign 2. Biliary dilatation without demonstrated obstructing stone. MRCP: 1. cholilithiasis 2. Dilated common bile duct 14mm. but no choledocholithiasis, no ampullaruy mass or pancreatic head mas. Assess/Plan/Problems-Billing Assessment: 49 y.o female with PMH of MS, who presented with ER with RUQ abd pain found to have cholelithesis and concern for passed CBD stone. now s/p lap niesha on 06/24 - Patient Problems (1) RUQ abdominal pain Current Visit: Yes Status: Acute Code(s): R10.11 - RIGHT UPPER QUADRANT PAIN SNOMED Code(s): 796133570 Comment: - POD2 for lap niesha for cholelithiasis/biliary colic - HIDA scan normal - s/p zosyn - Most likely had a passed CBD stone - current pain seems from her inciscions. Continue oxy and morphine prns per surgery. Much less nausea since surgery. (2) Multiple sclerosis Current Visit: No Status: Chronic Code(s): G35 - MULTIPLE SCLEROSIS SNOMED Code(s): 26791787 Comment: stable -not in exacerbation - Advanced, Secondary progressive and refractory to treatment - Continue symptomatic management for spasms (baclofen amentadine), pain and alertness. - Appreciate Dr. Devi fontana. Seems like Gilenya was not pursued in [place] ultimately. (3) Depression Current Visit: No Status: Chronic Code(s): F32.9 - MAJOR DEPRESSIVE DISORDER , SINGLE EPISODE, UNSPECIFIED SNOMED Code(s): 86333544 Comment: - Appreciate Psych recs (Dr. Bustamante) - Continue Chronic Medications at this time (Rexulti, [place], Viibryd), no SI/ HI - Follow up outpatient [facility] (4) DVT prophylaxis Current Visit: No Status: Acute Priority: Medium Code(s): DZI6549 - SNOMED Code(s): 015646271 Comment: - History of DVT. - Lovenox resumed (5) DNR (do not resuscitate) Current Visit: No Status: Acute (6) Shoulder pain Current Visit: Yes Status: Acute Code(s): M25.519 - PAIN IN UNSPECIFIED SHOULDER SNOMED Code(s): 29118643 Comment: normal xray. She usually sleeps with her hands resting on her abdomen but has been forced to change this given the surgery. Hx of frozen shoulder. Pain with passive drop arm. Consideration for MRI if continues. Status and Disposition: inpatient - discharge when medically stable, likely back to [facility] 06/27.
[2019-06-26] MEDS: Pregabalin 25 mg CAP (*) PO SCH (20:13)
[2019-06-26] MEDS: Lithium Carbonate ER* 450 MG TAB.ER PO SCH (20:13)
[2019-06-26] MEDS: Oxybutynin XL TAB* 5 MG PO SCH (20:14)
[2019-06-27] MEDS: oxyCODONE/Acetamin 5/325 MG* TAB PO PRN ×2 (00:19→04:22)
[2019-06-27] MEDS: Ondansetron INJ* 2 MG/ML VIAL IV PRN ×2 (00:20→07:59)
[2019-06-27] MEDS: Levothyroxine TAB* 88 MCG TAB PO SCH (05:28)
[2019-06-27] MEDS: Pantoprazole TAB * 40 MG TAB PO SCH (08:03)
[2019-06-27] MEDS: Baclofen TAB* 20 MG PO SCH (08:03)
[2019-06-27] MEDS: Cyanocobalamin TAB* 500 MCG PO SCH (08:03)
[2019-06-27] MEDS: Amantadine CAP* 100 MG PO SCH (08:03)
[2019-06-27] MEDS: carBAMazepine TAB(*) 200 MG PO SCH (08:04)
[2019-06-27] MEDS: CMCS:Vilazodone (NF) 40 MG TAB PO SCH (08:04)
[2019-06-27] MEDS: BREXPIPRAZOLE 1 MG PO SCH (08:06)
--- NOTE | 2019-06-27 09:04 | PN ---
Progress Note - Progress Note Date of Service: 06/27/19 SOAP: Subjective: Doing well-tolerating po Minimal incisional pain Had BM and passing flatus Objective: Temp Pulse Resp BP Pulse Ox 98.6 F 81 16 114/59 98 06/27/19 07:43 06/27/19 07:43 06/27/19 08:10 06/27/19 07:43 06/27/19 07:43 Intake & Output 06/25/19 06/26/19 06/27/19 06/28/19 06:59 06:59 06:59 06:59 Intake Total 1400 3660 3291 Output Total 500 1100 1950 700 Balance 900 2560 1341 -700 Intake: IV Fluids 1000 1960 1341 LR 1000 NS (0.9%) 1960 1287 mag 54 Oral 400 1700 1950 Output: Urine 500 1100 1950 700 Other: Estimated Void Medium Large Medium # Voids 1 1 1 PEX: Comfortable Abd is soft and non-distended. Incision CDI. Appropriate incisional tenderness Assessment: POD# 3 s/p lap choly with cholangiogram LFT's normalized 06/25/19 Plan: OK for D/C today from surgical standpoint 2 week follow up in office scheduled and added to discharge packet Post-op instructions given.
[2019-06-27 11:14] VITALS: BP 119/65
[2019-06-27] MEDS: Enoxaparin(*) 40 MG/0.4 ML SYR SUBCUT SCH (12:11)
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
== END 2019-06-27 12:50 | DRG 419 ==
LOC: ED 17:05 → SSU 23:25
PROVIDERS: ADMIT Internal Medicine; ATTEND Internal Medicine
PROC: BF13YZZ Fluoroscopy of Gallbladder and Bile Ducts using Other Contrast (ICD-10-PCS; 2019-06-24)
PROC: 0FT44ZZ Resection of Gallbladder, Percutaneous Endoscopic Approach (ICD-10-PCS; principal; 2019-06-24 15:45)
DX: K80.70 Calculus of gallbladder and bile duct without cholecystitis without obstruction (principal); G35 Multiple sclerosis; J45.909 Unspecified asthma, uncomplicated; K21.9 Gastro-esophageal reflux disease without esophagitis; M17.0 Bilateral primary osteoarthritis of knee; M19.041 Primary osteoarthritis, right hand; G43.909 Migraine, unspecified, not intractable, without status migrainosus; F41.9 Anxiety disorder, unspecified; F31.9 Bipolar disorder, unspecified; K58.9 Irritable bowel syndrome, unspecified; E03.9 Hypothyroidism, unspecified; R56.9 Unspecified convulsions; R74.0 Nonspecific elevation of levels of transaminase and lactic acid dehydrogenase [LDH]; G47.33 Obstructive sleep apnea (adult) (pediatric); N31.9 Neuromuscular dysfunction of bladder, unspecified; N39.498 Other specified urinary incontinence; Z66 Do not resuscitate; M25.511 Pain in right shoulder; Z87.890 Personal history of sex reassignment; Z91.5 Personal history of self-harm; Z86.711 Personal history of pulmonary embolism; Z88.6 Allergy status to analgesic agent; Z88.1 Allergy status to other antibiotic agents; Z91.030 Bee allergy status; Z88.0 Allergy status to penicillin; Z88.2 Allergy status to sulfonamides; Z88.8 Allergy status to other drugs, medicaments and biological substances; Z91.018 Allergy to other foods; Z92.21 Personal history of antineoplastic chemotherapy; Z87.891 Personal history of nicotine dependence; Z87.440 Personal history of urinary (tract) infections; Z79.899 Other long term (current) drug therapy
CPT/HCPCS: 36415; 74181; 74300; 76376; 76705; 78226; 80048; 80053; 80076; 81003; 81015; 83690; 83735; 84484; 84702; 85025; 87086; 87641; 88304; 93005; 96361; 96365; 99284; A9270-GY; A9537; J1642; J1650; J2250; J2270; J2405; J2543; J2704; J3010; J3475

== ENCOUNTER 2019-08-07 17:06 | Emergency (ER) | payer MEDICAID, MEDICARE ==
[2019-08-07] MEDS ORDERED: methylPREDNISolone SOD SUCC* 1000 MG ML VIAL IVPB ONE (18:43)
--- OUTSIDE RECORDS SUMMARY | 2019-08-07 18:46 | XMS REPORT | Continuity of Care Document ---
:1970 External Reference #:[id number] Author Name LALI Louie (transmitted by agent of provider Mis Cummings) Address [address] [place] [address] Care Team Providers Name Role Phone Chiki Chandler MD - Internal Care Team Information Artist'S Manager Medicine Problems Active Problems Provider Date Multiple sclerosis Shelley Barahona M.D. Onset: 11/30/2014 Depressive disorder Shelley Barahona M.D. Onset: 11/30/2014 Other sleep disorders Jennifer Soto MD Onset: 02/12/2017 Obstructive sleep apnea syndrome Thalia Cisneros DNP, RN, OFFICE MESSENGER-BC Onset: Hypersomnia Thalia Cisneros DNP RN, OFFICE MESSENGER-BC Onset: 09/04/2017 Taking medication Tim Lara M.D. [...] Unknown Never Smoked Cigarettes Smoking Status Reviewed: 07/28/19 Never Smoked Cigarettes ETOH Use Denies alcohol use Tobacco Use Start: Unknown Patient has never smoked Recreational Drug Use Denies Drug Use Exercise Type/Frequency Does not exercise Allergies, Adverse Reactions, Alerts Active Allergies Reaction Severity Comments Date Penicillin Nausea and Vomiting 11/23/2012 Codeine 11/23/2012 Sulfa Antibiotics 11/23/2012 Aspirin 11/06/2016 Interferon Beta-1B suicidal 02/12/2017 Medications Active Medications SIG Qnty Indications Ordering Provider Date Vimpat 3 milliliters (30 180ml Bello Rick, 07/15/2019 10mg/ml Solution mg) twice a day N.P. code c Wheelchair OT-PT [facility] Marco, 05/10/2018 [facility] mobility M.D. evaluation Baclofen take 1.5 tabs 90tabs Tim Marco, 03/08/2018 10mg Tablets twice a day M.D. Hospital Bed [facility]2018 [facility] hospital bed, with M.D. half rails and overhead trapeze for limited mobility.. Dx MS.. Amantadine HCL 1 by mouth twice 60tabs Tim Marco, 12/12/2013 100mg daily M.D. Tablets Cyanocobalamin sublingual tablet Unknown once daily 1000mcg/ML Solution Levothyroxine Sodium 1 by mouth every Unknown day 88mcg Tablets Stool Softener 2 by mouth daily Unknown 100mg prn Capsules Linzess 1 by mouth every Unknown 290mcg Capsules day Compazine 5 MG 1 tab by mouth as Unknown needed for nausea Myrbetriq 1 by mouth every Unknown 50mg Tablets day ER 24HR [place] Carbonate ER 2 tabs by mouth at Unknown bedtime 450mg Tablets ER Linaclotide 290 mcg 1 tab by mouth Unknown daily Carbamazepine take 1 tablet by Unknown 200mg mouth twice daily Tablets Rexulti Take 1 Tablet By Unknown 1mg Tablets Mouth Every Day Oxycodone HCL 1 pill by mouth 60tabs [facility], 10mg every 12 hours prn M.D. Tablets pain Klor-Con 10 1 by mouth every 90tabs Unknown 10Meq day Tablets ER Omeprazole 1 by mouth every Unknown 20mg Tablets day, as needed DR Taylor 1 by mouth every 30tabs Unknown 40mg Tablets day History Medications Vimpat 30 ml by mouth in 1800ml [facility], 07/15/2019 - 10mg/ml am and 30 ml at N.P. 07/14/2019 Solution bedtime Code C Vimpat 1 tab twice a day 60tabs [facility], 06/30/2019 - 50mg Tablets N.P. 07/15/2019 Immunizations Description No Information Available Vital Signs Date Vital Result Comment 07/28/2019 10:58am Height 65.5 inches 5'5.50" Weight 155.00 lb Heart Rate 72 /min BP Systolic Sitting 108 mmHg BP Diastolic Sitting 78 mmHg Respiratory Rate 14 /min Body Temperature 98.1 F BMI (Body Mass Index) 25.4 kg/m2 07/05/2019 9:13am Height 65.5 inches 5'5.50" Weight 155.00 lb Heart Rate 72 /min BP Systolic 130 mmHg BP Diastolic 80 mmHg O2 % BldC Oximetry 96 % BMI (Body Mass Index) 25.4 kg/m2 Results Test Acquired Date Facility Test Result H/L Range Note Surgical 06/24/2019 [facility] Surgical SEE RESULT [address] [place] [address] [phone] PDFReport SEE IMAGE Order 04/07/2019 [facility] EEG, 72 Hour Ambulatory [address] [place] [address] [phone] 1 SEE RESULT BELOW Name: DINA CISNEROS : [address]: Дмитрий Rutledge MD Acct: [id number] Unit: [id number] AGE: 49 Location: [facility] 340-01 Re06/21/19 Dis: 06/27/19 SEX: F Status: DIS IN SPEC: [id number] JOVANA: 06/24/19-[address] [facility] [address]: Artur Cabrales MD REQ: [id number] RECD: 06/24/197660 STATUS: SOUT _ ORDERED: LEVEL 3 FINAL DIAGNOSIS Gallbladder, cholecystectomy: -- Chronic cholecystitis with cholelithiasis. POST-OPERATIVE DIAGNOSIS Acute abdominal pain. GROSS DESCRIPTION The specimen is received in formalin labeled, Gallbladder, and consists of a 9.6 x 3.8 x 2.4 cm focally disrupted gallbladder. The serosa is glistening smooth mooney-pink. Within the lumen and the container there are multiple yellow intact and fragmented bosselated choleliths ranging from 0.1 cm to 0.7 cm in greatest dimension admixed with green-yellow viscid bile. The mucosa is reticulated mooney-red with a small amount of yellow stippling and the wall thickness averages 0.1 cm. Explosive Ordnance Handler sections, one cassette. Signed by and Reported on: Reyes Medeiros MD 12/09 1414 END OF REPORT DEPARTMENT OF PATHOLOGY, [address] [place] [address] Reyes Medeiros M.D. Director [facility] # [id number] Procedures Date Code Description Status 06/26/2019 40154 EKG, Interpretation Only Completed 06/24/2019 87827 Laparoscopy Cholecystectomy Completed 06/24/2019 65192 Laparoscopy Cholecystectomy Completed 06/19/2019 35858 EEG Monitoring Computer Completed 03/23/2019 93371 EEG Recording Awake & Drowsy Completed Medical Devices Description No Information Available Encounters Type Date Location Provider Dx Diagnosis Office Visit 07/05/2019 [facility] Thalia Cisneros, G47.33 Obstructive sleep 9:30a [facility], RN, OFFICE MESSENGER-BC apnea (adult) Senior Investigator (pediatric) G47.14 Hypersomnia due to medical condition Office Visit 06/27/2019 10:15a [facility] Дмитрий Rutledge, K80.51 Calculus of bile Assthomas,jamaal TURNER duct w/o Hospitalists cholangitis or cholecyst w obst Z90.49 Acquired absence of other specified parts of digestive tract Office Visit 06/26/2019 10:14a [facility] Дмитрий Rutledge, R10.11 Right upper Assoc,jamaal TURNER quadrant pain Hospitalists G35 Multiple sclerosis F32.9 Major depressive disorder, single episode, unspecified M25.519 Pain in unspecified shoulder Office Visit 06/25/2019 10:14a [facility] Дмитрий Rutledge, R10.11 Right upper Assoc,jamaal TURNER quadrant pain Hospitalists G35 Multiple sclerosis F32.9 Major depressive disorder, single episode, unspecified Office Visit 06/24/2019 10:13a [facility] Vitaly R10.11 Right upper Assoc,LALI Briones quadrant pain Hospitalists F32.9 Major depressive disorder, single episode, unspecified Z86.69 Personal history of dis of the nervous sys and sense organs Office Visit 06/23/2019 Neurohospitalist Sreekanth Yepez5 Multiple 7:00a Cheikh Quinonez M.D. sclerosis Office Visit 06/23/2019 [facility] Vitaly R10.11 Right upper 10:13a Assoc,pc Hospitalists LALI Sue quadrant pain Z86.69 Personal history of dis of the nervous sys and sense organs Office Visit 06/23/2019 Surgical Artur Arcos K80.10 Calculus of 7:00a [facility] MD Samra gallbladder w chronic cholecyst w/o obstruction Office Visit 06/22/2019 [facility] Dina R10.11 Right upper 10:12a Assoc,pc DONNY Valencia quadrant pain Hospitalists F32.9 Major depressive disorder, single episode, unspecified E03.9 Hypothyroidism, unspecified G35 Multiple sclerosis Office Visit 06/22/2019 Surgical Artur S. K80.10 Calculus of 7:00a [facility] MD Samra gallbladder w chronic cholecyst w/o obstruction Office Visit 06/21/2019 [facility] Дмитрий Rutledge MD R10.11 Right upper 10:12a Assoc,pc quadrant pain Hospitalists G35 Multiple sclerosis E03.9 Hypothyroidism, unspecified F31.9 Bipolar disorder, unspecified N39.0 Urinary tract infection, site not specified Office Visit 06/07/2019 [facility] Yasmany N39.0 Urinary tract 9:40a Assoc,pc Owen Iqbal infection, site Hospitalists not specified G35 Multiple sclerosis F32.9 Major depressive disorder, single episode, unspecified J45.909 Unspecified asthma, uncomplicated G43.909 Migraine, unsp, not intractable, without status migrainosus G47.33 Obstructive sleep apnea (adult) (pediatric) Office Visit 06/06/2019 9:39a [facility] Vitaly E53.8 Deficiency of Assoc,pc LALI Sue other specified Hospitalists B group vitamins G35 Multiple sclerosis R94.6 Abnormal results of thyroid function studies R56.9 Unspecified convulsions N39.0 Urinary tract infection, site not specified G47.33 Obstructive sleep apnea (adult) (pediatric) Office Visit 06/04/2019 9:39a [facility] Angi Perales, G35 Multiple Assoc,pc N.P. sclerosis Hospitalists N32.81 Overactive bladder E03.9 Hypothyroidism, unspecified G40.909 Epilepsy, unsp, not intractable, without status epilepticus G89.29 Other chronic pain R10.9 Unspecified abdominal pain Office Visit 06/02/2019 1:12p [facility] Kelley High, G35 Multiple Assoc,pc Owen sclerosis Hospitalists R13.10 Dysphagia, unspecified J45.909 Unspecified asthma, uncomplicated Z96.0 Presence of urogenital implants Z51.5 Encounter for palliative care F32.9 Major depressive disorder, single episode, unspecified Office Visit 05/30/2019 1:11p Palliative Care Zahra Garcia, G35 [facility] sclerosis R13.10 Dysphagia, unspecified Office Visit 05/28/2019 1:11p [facility] Kelley High, G35 Multiple Assoc,pc Owen sclerosis Hospitalists R53.1 Weakness Office Visit 04/07/2019 3:30p [facility] Bello Rick, G35 [facility] N.P. sclerosis J45.909 Unspecified asthma, uncomplicated R41.2 Retrograde amnesia R56.9 Unspecified convulsions R35.0 Frequency of micturition G47.33 Obstructive sleep apnea (adult) (pediatric) Office Visit 04/06/2019 [facility] R19.7 Diarrhea, 12:54p Assoc,pc Erik, MATRIX PLATER unspecified Hospitalists E87.6 Hypokalemia G35 Multiple sclerosis J45.909 Unspecified asthma, uncomplicated F32.9 Major depressive disorder, single episode, unspecified G43.909 Migraine, unsp, not intractable, without status migrainosus R39.81 Functional urinary incontinence G47.33 Obstructive sleep apnea (adult) (pediatric) Office Visit 04/05/2019 [facility] R19.7 Diarrhea, 12:53p Assoc,pc Erik, MATRIX PLATER unspecified Hospitalists N39.0 Urinary tract infection, site not specified G35 Multiple sclerosis M54.9 Dorsalgia, unspecified F31.9 Bipolar disorder, unspecified E03.9 Hypothyroidism, unspecified Office Visit 03/25/2019 10:10a [facility] Dermatology Rich Teran, D22.5 Melanocytic nevi of trunk L91.8 Other hypertrophic disorders of the skin L82.1 Other seborrheic keratosis Assessments Date Code Description Provider 07/28/2019 K80.10 Calculus of gallbladder with chronic LALI Louie cholecystitis without obstruction 07/05/2019 G47.33 Obstructive sleep apnea (adult) Thalai Cisneros DNP, RN, (pediatric) [facility]- 07/05/2019 G47.14 Hypersomnia due to medical condition Thalia Cisneros DNP , RN, [facility] 06/27/2019 K80.51 Calculus of bile duct without Дмитрий Rutledge MD cholangitis or cholecystitis with obstruction 06/27/2019 K80.10 Calculus of gallbladder with chronic Artur Cabrales MD cholecystitis without obstruction 06/27/2019 Z90.49 Acquired absence of other specified Дмитрий Rutledge MD parts of digestive tract 06/26/2019 R10.11 Right upper quadrant pain Дмитрий Rutledge MD 06/26/2019 R06.02 Shortness of breath Srini Martinez M.D., [facility] 06/26/2019 G35 Multiple sclerosis Дмитрий Rutledge MD 06/26/2019 F32.9 Major depressive disorder, single Дмитрий Rutledge MD episode, unspecified 06/26/2019 M25.519 Pain in unspecified shoulder Дмитрий Rutledge MD 06/25/2019 K80.10 Calculus of gallbladder with chronic Candice Curtis MD cholecystitis without obstruction 06/25/2019 R10.11 Right upper quadrant pain Дмитрий Rutledge MD 06/25/2019 G35 Multiple sclerosis Дмитрий Rutledge MD 06/25/2019 F32.9 Major depressive disorder, single Дмитрий Rutledge MD episode, unspecified 06/24/2019 K80.10 Calculus of gallbladder with chronic Wesley Vila PA-C cholecystitis without obstruction 06/24/2019 R10.11 Right upper quadrant pain LALI Sidhu 06/24/2019 K80.10 Calculus of gallbladder with chronic Artur Cabrales MD cholecystitis without obstruction 06/24/2019 F32.9 Major depressive disorder, single LALI Sidhu episode, unspecified 06/24/2019 K80.10 Calculus of gallbladder with chronic Artur Cabrales MD cholecystitis without obstruction 06/24/2019 Z86.69 Personal history of other diseases of LALI Sidhu the nervous system and sense organs 06/23/2019 R10.11 Right upper quadrant pain LALI Sidhu 06/23/2019 G35 Multiple sclerosis Sreekanth Quinonez M.D. 06/23/2019 Z86.69 Personal history of other diseases of LALI Sidhu the nervous system and sense organs 06/23/2019 K80.10 Calculus of gallbladder with chronic Artur Cabrales MD cholecystitis without obstruction 06/22/2019 K80.10 Calculus of gallbladder with chronic Artur Cabrales MD cholecystitis without obstruction 06/22/2019 R10.11 Right upper quadrant pain Dina Valencia, [employer]RI[employer] 06/22/2019 F32.9 Major depressive disorder, single Dina Valencia, MATRIX [employer] episode, unspecified 06/22/2019 E03.9 Hypothyroidism, unspecified Dina Valencia, [employer]RI[employer] 06/22/2019 G35 Multiple sclerosis Dina Valencia, [employer]RI[employer] 06/21/2019 R10.11 Right upper quadrant pain Дмитрий Rutledge MD 06/21/2019 G35 Multiple sclerosis Дмитрий Rutledge MD 06/21/2019 E03.9 Hypothyroidism, unspecified Дмитрий Rutledge MD 06/21/2019 F31.9 Bipolar disorder, unspecified Дмитрий Rutledge MD 06/21/2019 N39.0 Urinary tract infection, site not Дмитрий Rutledge MD specified 06/19/2019 R56.9 Unspecified convulsions Breann Gonzalez MD 06/19/2019 R94.01 Abnormal electroencephalogram [EEG] Breann Gonzalez MD 06/07/2019 N39.0 Urinary tract infection, site not Yasmany Iqbal M.D. specified 06/07/2019 G35 Multiple sclerosis Yasmany Iqbal M.D. 06/07/2019 F32.9 Major depressive disorder, single Yasmany Iqbal M.D. episode, unspecified 06/07/2019 J45.909 Unspecified asthma, uncomplicated Yasmany Iqbal M.D. 06/07/2019 G43.909 Migraine, unspecified, not Yasmany Iqbal M.D. intractable, without status migrainosus 06/07/2019 G47.33 Obstructive sleep apnea (adult) Yasmany Iqbal M.D. (pediatric) 06/06/2019 E53.8 Deficiency of other specified B group LALI Sidhu vitamins 06/06/2019 G35 Multiple sclerosis LALI Sidhu 06/06/2019 R94.6 Abnormal results of thyroid function LALI Sidhu studies 06/06/2019 R56.9 Unspecified convulsions LALI Sidhu 06/06/2019 N39.0 Urinary tract infection, site not LALI Sidhu specified 06/06/2019 G47.33 Obstructive sleep apnea (adult) LALI Sidhu (pediatric) 06/05/2019 R53.1 Weakness LALI Sidhu 06/05/2019 E53.8 Deficiency of other specified B group LALI Sidhu vitamins 06/05/2019 G35 Multiple sclerosis LALI Sidhu 06/05/2019 R94.6 Abnormal results of thyroid function LALI Sidhu studies 06/05/2019 R56.9 Unspecified convulsions LALI Sidhu 06/05/2019 N39.0 Urinary tract infection, site not LALI Sidhu specified 06/05/2019 G47.33 Obstructive sleep apnea (adult) LALI Sidhu (pediatric) 06/05/2019 R32 Unspecified urinary incontinence LALI Sidhu 06/04/2019 G35 Multiple sclerosis Angi Perales, N.P. 06/04/2019 N32.81 Overactive bladder Angi Perales, N.P. 06/04/2019 E03.9 Hypothyroidism, unspecified Angi Perales, N.P. 06/04/2019 G40.909 Epilepsy, unspecified, not Angi Diaz, N.P. intractable, without status epilepticus 06/04/2019 G89.29 Other chronic pain Angi Perales, N.P. 06/04/2019 R10.9 Unspecified abdominal pain Angi Perales, N.P. 06/02/2019 G35 Multiple sclerosis Kelley High M.D. 06/02/2019 R13.10 Dysphagia, unspecified Kelley High M.D. 06/02/2019 J45.909 Unspecified asthma, uncomplicated Kelley High M.D. 06/02/2019 Z96.0 Presence of urogenital implants Kelley High M.D. 06/02/2019 Z51.5 Encounter for palliative care Kelley High M.D. 06/02/2019 F32.9 Major depressive disorder, single Kelley High M.D. episode, unspecified 05/30/2019 G35 Multiple sclerosis Zahra Garcia MD 05/30/2019 R13.10 Dysphagia, unspecified Zahra Garcia MD 05/28/2019 G3Scott Multiple sclerosis Kelley High M.D. 05/28/2019 R53.1 Weakness Kelley High M.D. 04/07/2019 G35 Multiple sclerosis Bello Rick, N.P. 04/07/2019 J45.909 Unspecified asthma, uncomplicated Bello Rick, N.P. 04/07/2019 R41.2 Retrograde amnesia Bello Rick, N.P. 04/07/2019 R56.9 Unspecified convulsions Bello Rick, N.P. 04/07/2019 R35.0 Frequency of micturition Bello Rick, N.P. 04/07/2019 G47.33 Obstructive sleep apnea (adult) Bello Rick, N.P. (pediatric) 04/06/2019 R19.7 Diarrhea, unspecified Dina [place], [employer]RIX [employer] 04/06/2019 E87.6 Hypokalemia Dina Erik, [employer]RIX [employer] 04/06/2019 G35 Multiple sclerosis Dina [place], [employer]RI[employer] 04/06/2019 J45.909 Unspecified asthma, uncomplicated Dina Erik, [employer]RI[employer] 04/06/2019 F32.9 Major depressive disorder, single Dina Erik, MATRIX [employer] episode, unspecified 04/06/2019 G43.909 Migraine, unspecified, not Dina [place], MATRIX PLATER intractable, without status migrainosus 04/06/2019 R39.81 Functional urinary incontinence Dina [place], [employer]RI[employer] 04/06/2019 G47.33 Obstructive sleep apnea (adult) Dina Erik, [employer]RIX [employer] (pediatric) 04/05/2019 R19.7 Diarrhea, unspecified Dina Erik, [employer]RI[employer] 04/05/2019 N39.0 Urinary tract infection, site not Dina [place], [employer]RIX [employer] specified 04/05/2019 G35 Multiple sclerosis Dina [place], [employer]RI[employer] 04/05/2019 M54.9 Dorsalgia, unspecified Dina Erik, [employer]RI[employer] 04/05/2019 F31.9 Bipolar disorder, unspecified Dina [place], [employer]RI[employer] 04/05/2019 E03.9 Hypothyroidism, unspecified Dina [place], [employer]RIX [employer] 03/25/2019 D22.5 Melanocytic nevi of trunk Rich Teran MD 03/25/2019 L91.8 Other hypertrophic disorders of the Rich Teran MD skin 03/25/2019 L82.1 Other seborrheic keratosis Rich Teran MD 03/23/2019 R56.9 Unspecified convulsions Breann Gonzalez MD Plan of Treatment Future Appointment(s):08/30/2019 10:30 am - Thalia Cisneros DNP, RN, OFFICE MESSENGER-BC at [facility]07/28/2019 - Tim Toscano, PAK80.10 Calculus of gallbladder with chronic cholecystitis without obstructionFollow up: As needed Functional Status Description No Information Available Mental Status Description No Information Available Referrals Refer to Dr Reason for Referral Status Appt Date Torin Tapia MD Eye Exam before starting Gilenya medication for Created [place] [address] [place] [address] [phone] Jennifer Soto MD f/u regarding broken cpap equipment-established Sent patient [address] [place] [address] [phone]
--- OUTSIDE RECORDS SUMMARY | 2019-08-07 18:46 | XMS REPORT | Continuity of Care Document ---
:1970 External Reference #:[id number] Author Name Thalia Cisneros DNP, RN, BO-BC (transmitted by agent of provider Jennifer Loya) Address [address] [facility], [address] [place] [address] Care Team Providers Name Role Phone Chiki Chandler MD - Internal Care Team Information Label Maker [phone] Medicine Problems Active Problems Provider Date Multiple sclerosis Shelley Barahona M.D. Onset: 11/30/2014 Depressive disorder Shelley Barahona M.D. Onset: 11/30/2014 Other sleep disorders Jennifer Soto MD Onset: 02/12/2017 Obstructive sleep apnea syndrome Thalia Cisneros DNP, RN, MEASUREMENT SUPERVISOR-BC Onset: Hypersomnia Thalia Cisneros DNP RN, MEASUREMENT SUPERVISOR-BC Onset: 09/04/2017 Taking medication Tim Lara M.D. [...] Unknown Never Smoked Cigarettes Smoking Status Reviewed: 07/05/19 Never Smoked Cigarettes ETOH Use Denies alcohol use Tobacco Use Start: Unknown Patient has never smoked Recreational Drug Use Denies Drug Use Exercise Type/Frequency Does not exercise Allergies, Adverse Reactions, Alerts Active Allergies Reaction Severity Comments Date Penicillin Nausea and Vomiting 11/23/2012 Codeine 11/23/2012 Sulfa Antibiotics 11/23/2012 Aspirin 11/06/2016 Interferon Beta-1B suicidal 02/12/2017 Medications Active Medications SIG Qnty Indications Ordering Provider Date Vimpat 1 tab twice a day 60tabs Bello Rick, 06/30/2019 50mg Tablets N.P. Wheelchair OT-PT Wheelchair 1unannette Tim Marco, 05/10/2018 [facility] mobility M.D. evaluation Baclofen take 1.5 tabs 90tabs [facility] 03/08/2018 10mg Tablets twice a day M.D. Hospital Bed Semi electric 1annette Tim Marco, 01/14/2018 [facility] hospital bed, M.D. with half rails and overhead trapeze for limited mobility.. Dx MS.. Amantadine HCL 1 by mouth twice 60tabs Tim Marco, 12/12/2013 100mg daily M.D. Tablets Morphine Sulfate ER 30mg every 12 Unknown 30mg hours for pain by Caps ER 24HR mouth Stool Softener 2 by mouth daily Unknown 100mg prn Capsules Linzess 1 by mouth every Unknown 290mcg Capsules day Compazine 5 MG 1 tab by mouth as Unknown needed for nausea Myrbetriq 1 by mouth every Unknown 50mg Tablets ER day 24HR [place] Carbonate ER 2 tabs by mouth Unknown at bedtime 450mg Tablets ER Linaclotide 290 mcg 1 tab by mouth Unknown daily Levothyroxine Sodium 1 by mouth every Unknown day 50mcg Tablets Carbamazepine take 1 tablet by Unknown 200mg mouth twice daily Tablets Rexulti Take 1 Tablet By Unknown 1mg Tablets Mouth Every Day Oxycodone HCL 1 pill by mouth 60tabs [facility] 10mg every 12 hours M.D. Tablets prn pain Klor-Con 10 1 by mouth every 90tabs Unknown 10Meq Tablets day ER Omeprazole 1 by mouth every Unknown 20mg Tablets day Methylphenidate HCL ER 1 tab po daily Unknown 36mg Tablets ER Viibryd 1 by mouth every 30tabs Unknown 40mg Tablets day Immunizations Description No Information Available Vital Signs Date Vital Result Comment 07/05/2019 9:13am Height 65.5 inches 5'5.50" Weight 155.00 lb Heart Rate 72 /min BP Systolic 130 mmHg BP Diastolic 80 mmHg O2 % BldC Oximetry 96 % BMI (Body Mass Index) 25.4 kg/m2 04/07/2019 3:11pm Height 65.5 inches 5'5.50" Weight 140.00 lb Heart Rate 81 /min BMI (Body Mass Index) 22.9 kg/m2 Results Test Acquired Date Facility Test Result H/L Range Note Surgical 06/24/2019 [facility] Surgical SEE RESULT [address] [place] [address] [phone] PDFReport SEE IMAGE Order 04/07/2019 [facility] EEG, 72 Hour Ambulatory [address] [place] [address] [phone] 1 SEE RESULT BELOW Name: DINA CISNEROS : [address]: Дмитрий Rutledge MD Acct: [id number] Unit: [id number] AGE: 49 Location: [place] [address] Re06/21/19 Dis: 06/27/19 SEX: F Status: DIS IN SPEC: [id number] JOVANA: 06/24/19-[address] [facility] [address]: Artur Cabrales MD REQ: [id number] RECD: 06/24/19-7624 STATUS: SOUT _ ORDERED: LEVEL 3 FINAL [...] and the wall thickness averages 0.1 cm. Html Web Developer sections, one cassette. Signed by and Reported on: Reyes Medeiros MD 12/09 1414 END OF REPORT DEPARTMENT OF PATHOLOGY, [address] [place] [address] Reyes Medeiros M.D. Director [facility] # [id number] Procedures Date Code Description Status 06/26/2019 67551 EKG, Interpretation Only Completed 06/24/2019 74537 Laparoscopy Cholecystectomy Completed 06/19/2019 76704 EEG Monitoring Computer Completed 03/23/2019 57573 EEG Recording Awake & Drowsy Completed Medical Devices Description No Information Available Encounters Type Date Location Provider Dx Diagnosis Office Visit 06/26/2019 [facility] Дмитрий Rutledge MD R10.11 Right upper 10:14a Assoc,pc Hospitalists quadrant pain G35 Multiple sclerosis F32.9 Major depressive disorder, single episode, unspecified M25.519 Pain in unspecified shoulder Office Visit 06/25/2019 10:14a [facility] Дмитрий Rutledge, R10.11 Right upper Assoc,jamaal TURNER quadrant pain Hospitalists G35 Multiple sclerosis F32.9 Major depressive disorder, single episode, unspecified Office Visit 06/23/2019 [facility] Sreekanth Arcos G35 Multiple 7:00a Cheikh Quinonez M.D. sclerosis Office Visit 06/23/2019 [facility] Artur Arcos K80.10 Calculus of 7:00a Of Lexii Cabrales MD gallbladder w chronic cholecyst w/o obstruction Office Visit 06/22/2019 [facility] Dina R10.11 Right upper 10:12a Assoc,pc Hospitalists DONNY Valencia quadrant pain F32.9 Major depressive disorder, single episode, unspecified E03.9 Hypothyroidism, unspecified G35 Multiple sclerosis Office Visit 06/22/2019 Surgical Artur Arcos K80.10 Calculus of 7:00a Associates Of Lexii Cabrales MD gallbladder w chronic cholecyst w/o obstruction Office Visit 06/21/2019 [facility] Дмитрий Rutledge MD R10.11 Right upper 10:12a Assoc,jamaal quadrant pain Hospitalists G35 Multiple sclerosis E03.9 Hypothyroidism, unspecified F31.9 Bipolar disorder, unspecified N39.0 Urinary tract infection, site not specified Office Visit 06/07/2019 [facility] Yasmany N39.0 Urinary tract 9:40a Assjamaal guzman M.D. infection, site Hospitalists not specified G35 Multiple sclerosis F32.9 Major depressive disorder, single episode, unspecified J45.909 Unspecified asthma, uncomplicated G43.909 Migraine, unsp, not intractable, without status migrainosus G47.33 Obstructive sleep apnea (adult) (pediatric) Office Visit 06/06/2019 9:39a [facility] Vitaly E53.8 Deficiency of Assoc,LALI Briones other specified Hospitalists B group vitamins G35 Multiple sclerosis R94.6 Abnormal results of thyroid function studies R56.9 Unspecified convulsions N39.0 Urinary tract infection, site not specified G47.33 Obstructive sleep apnea (adult) (pediatric) Office Visit 06/04/2019 9:39a [facility] Agni Perales, G35 Multiple Assoc,pc N.P. sclerosis Hospitalists N32.81 Overactive bladder E03.9 Hypothyroidism, unspecified G40.909 Epilepsy, unsp, not intractable, without status epilepticus G89.29 Other chronic pain R10.9 Unspecified abdominal pain Office Visit 06/02/2019 1:12p [facility] Kelley High, G35 Multiple Assoc,pc M.D. sclerosis Hospitalists R13.10 Dysphagia, unspecified J45.909 Unspecified asthma, uncomplicated Z96.0 Presence of urogenital implants Z51.5 Encounter for palliative care F32.9 Major depressive disorder, single episode, unspecified Office Visit 05/30/2019 1:11p Palliative [facility] Zahra Garcia, G35 [facility] sclerosis R13.10 Dysphagia, unspecified Office Visit 05/28/2019 1:11p [facility] Kelley High, G35 Multiple Assoc,pc M.D. sclerosis Hospitalists R53.1 Weakness Office Visit 04/07/2019 3:30p [facility] Bello Rick, G35 [facility] N.P. sclerosis J45.909 Unspecified asthma, uncomplicated R41.2 Retrograde amnesia R56.9 Unspecified convulsions R35.0 Frequency of micturition G47.33 Obstructive sleep apnea (adult) (pediatric) [facility], 12:54p Assoc,jamaal Valencia, OIL PIT ATTENDANT unspecified Hospitalists E87.6 Hypokalemia G35 Multiple sclerosis J45.909 Unspecified asthma, uncomplicated F32.9 Major depressive disorder, single episode, unspecified G43.909 Migraine, unsp, not intractable, without status migrainosus R39.81 Functional urinary incontinence G47.33 Obstructive sleep apnea (adult) (pediatric) Office Visit 04/05/2019 [facility] R19.7 Diarrhea, 12:53p Assoc,pc Erik, OIL PIT ATTENDANT unspecified Hospitalists N39.0 Urinary tract infection, site not specified G35 Multiple sclerosis M54.9 Dorsalgia, unspecified F31.9 Bipolar disorder, unspecified E03.9 Hypothyroidism, unspecified Office Visit 03/25/2019 10:10a [facility] Dermatology Rich Teran, D22.5 Melanocytic nevi MD of trunk L91.8 Other hypertrophic disorders of the skin L82.1 Other seborrheic keratosis Assessments Date Code Description Provider 07/05/2019 G47.33 Obstructive sleep apnea (adult) Thalia Cisneros DNP, RN, (pediatric) [facility] 07/05/2019 G47.14 Hypersomnia due to medical condition Thalia Cisneros DNP , RN, [facility] 06/27/2019 K80.10 Calculus of gallbladder with chronic Artur Cabrales MD cholecystitis without obstruction 06/26/2019 R10.11 Right upper quadrant pain Дмитрий Rutledge MD 06/26/2019 R06.02 Shortness of breath Srini Martinez M.D., [facility] 06/26/2019 G35 Multiple sclerosis Дмитрий Rutledge [...] Artur Cabrales MD cholecystitis without obstruction 06/24/2019 K80.10 Calculus of gallbladder with chronic Artur Cabrales MD cholecystitis without obstruction 06/23/2019 G35 Multiple sclerosis Sreekanth Quinonez M.D. 06/23/2019 K80.10 Calculus of gallbladder with chronic Artur Cabrales MD cholecystitis without obstruction 06/22/2019 K80.10 Calculus of gallbladder with chronic Artur Cabrales MD cholecystitis without obstruction 06/22/2019 R10.11 Right upper quadrant pain Dina Valencia, OIL PIT ATTENDANT 06/22/2019 F32.9 Major depressive disorder, single Dina Valencia NP episode, unspecified 06/22/2019 E03.9 Hypothyroidism, unspecified Dina Erik, OIL PIT ATTENDANT 06/22/2019 G35 Multiple sclerosis Dina Knightckney, OIL PIT ATTENDANT 06/21/2019 R10.11 Right upper quadrant pain Дмитрий [...] Iqbal M.D. 06/07/2019 G43.909 Migraine, unspecified, not intractable, Yasmany qIbal M.D. without status migrainosus 06/07/2019 G47.33 Obstructive sleep [...] LALI Sidhu 06/04/2019 G35 Multiple sclerosis Angi ePrales, N.P. 06/04/2019 N32.81 Overactive bladder Angi Perales, N.P. 06/04/2019 E03.9 Hypothyroidism, unspecified Angi Perales, N.P. 06/04/2019 G40.909 Epilepsy, unspecified, not intractable, Angi Perales, N.P. without status epilepticus 06/04/2019 G89.29 Other chronic pain Angi Perales, N.P. 06/04/2019 R10.9 Unspecified abdominal pain Angi Perales N.P. 06/02/2019 G35 Multiple sclerosis Kelley High [...] Rick, N.P. 04/07/2019 R41.2 Retrograde amnesia Bello Rick N.P. 04/07/2019 R56.9 Unspecified convulsions Bello Rick, N.P. 04/07/2019 R35.0 Frequency of micturition Bello Rick, N.P. 04/07/2019 G47.33 Obstructive sleep apnea (adult) Bello Rick, N.P. (pediatric) 04/06/2019 R19.7 Diarrhea, unspecified Dina [place], OIL PIT ATTENDANT 04/06/2019 E87.6 Hypokalemia Dina [place], OIL PIT ATTENDANT 04/06/2019 G35 Multiple sclerosis Dina [place], OIL PIT ATTENDANT 04/06/2019 J45.909 Unspecified asthma, uncomplicated Dina [place], OIL PIT ATTENDANT 04/06/2019 F32.9 Major depressive disorder, single Dina Erik, OIL PIT ATTENDANT episode, unspecified 04/06/2019 G43.909 Migraine, unspecified, not intractable, Dina Erik , OIL PIT ATTENDANT without status migrainosus 04/06/2019 R39.81 Functional urinary incontinence Dina [place], OIL PIT ATTENDANT 04/06/2019 G47.33 Obstructive sleep apnea (adult) Dina Erik, OIL PIT ATTENDANT (pediatric) 04/05/2019 R19.7 Diarrhea, unspecified Dina Erik, OIL PIT ATTENDANT 04/05/2019 N39.0 Urinary tract infection, site not Dina Erik, OIL PIT ATTENDANT specified 04/05/2019 G35 Multiple sclerosis Dina Erik, OIL PIT ATTENDANT 04/05/2019 M54.9 Dorsalgia, unspecified Dina [place], OIL PIT ATTENDANT 04/05/2019 F31.9 Bipolar disorder, unspecified Dina Erik, OIL PIT ATTENDANT 04/05/2019 E03.9 Hypothyroidism, unspecified Dina Erik, OIL PIT ATTENDANT 03/25/2019 D22.5 Melanocytic nevi of trunk Rich Teran MD 03/25/2019 L91.8 Other hypertrophic disorders of the Rich Teran MD skin 03/25/2019 L82.1 Other seborrheic keratosis Rich Teran MD 03/23/2019 R56.9 Unspecified convulsions Breann Gonzalez MD Plan of Treatment Future Appointment(s):08/30/2019 10:30 am - Thalia Cisneros DNP, RN, MEASUREMENT SUPERVISOR-BC at [facility]07/11/2019 1:00 pm - Wesley Vila PA-C at [facility]07/21/2019 2:45 pm - Tim Lara M.D. at [facility]07/05/2019 - Thalia Cisneros DNP, RN, MEASUREMENT SUPERVISOR- BCG47.33 Obstructive sleep apnea (adult) (pediatric)Comments:Sleep Apnea - NPSG Mild obstructive sleep apnea noted on recent sl study- AHI- 8.5, O2 ibeth 89%,worse in REM sleepFollow up:6-8 weeksRecommendations:Resume PAP device, need a machine checked and repaired. Loaner for use until machine repaired. To start CPAP auto min 6 max 8 in mask of choice. Cleaning Wipe off mask daily ( baby wipe-no scent, or warm water) Clean mask, tubing, filter, and water chamber weekly in mild no scent dish soap and water.Hang to dry. If you have any sleepiness while driving you MUST avoid operating a vehicle or machinery. If you have difficulty with your equipment, or need to replace your mask or hoses, please contact your homecare agency. A weight change of 20 pounds or more may have an effect on your equipment; if you are experiencing problems please call for an appointment. If you have any further questions, please call the [facility] at [phone].G47.14 Hypersomnia due to medical conditionRecommendations:Should improve with apnea treatment. Functional Status Description No Information Available Mental Status Description No Information Available Referrals Refer to Dr Reason for Referral Status Appt Date Torin Tapia MD Eye Exam before starting Gilenya medication for Created [place] [address] [place] [address] [phone] Jennifer Soto MD f/u regarding broken cpap equipment-established Sent patient [address] [place] [address] [phone]
[2019-08-07 19:27] LABS: ABS Lymphocytes 1.1 10^3/ul (1.0-4.8); ABS Monocytes 0.5 10^3/ul (0-0.8); ABS Neutrophils 2.9 10^3/ul (1.5-7.7); Hematocrit 37 % (35-47); Hemoglobin 12.4 g/dL (12.0-16.0); Lymphocyte % 23.5 %; Mean Corpuscular HGB Conc 33 g/dL (31-36); Mean Corpuscular Hemoglobin 31 pg (27-31); Mean Corpuscular Volume 94 fL (80-97); Nucleated Red Blood Cells % 0.1; Platelet Count 294 10^3/uL (150-450); Red Cell Distribution Width 14 % (10-15); White Blood Count 4.6 10^3/uL (3.5-10.8)
[2019-08-07 19:31] LABS: Albumin 4.3 g/dL (3.2-5.2); Calcium 9.5 mg/dL (8.6-10.3); Potassium 3.8 mmol/L (3.5-5.0); Total Bilirubin 0.2 mg/dL (0.2-1.0)
[2019-08-07 19:37] LABS: Albumin/Globulin Ratio 1.8 (1-3); BUN/Creatinine Ratio 11.9 (8-20); EGFR African American 86.8 (>60); EGFR Non-African American 71.8 (>60); Globulin 2.4 g/dL (2-4); Total Protein 6.7 g/dL (6.4-8.9)
[2019-08-07] MEDS ORDERED: ASA-APAP-CAFFEINE ES (NF) 1 TAB TAB PO ONE (20:10)
[2019-08-07] MEDS ORDERED: Butalb/Acetamin/Caff TAB* 1 TAB PO ONE (20:18)
[2019-08-07 20:20] LABS: Urine Appearance Clear; Urine Bilirubin Negative (Negative); Urine Blood Negative (Negative); Urine Color Yellow; Urine Glucose Negative (Negative); Urine Ketones Negative (Negative); Urine Nitrite Negative (Negative); Urine Protein Negative (Negative); Urine Specific Gravity 1.012 (1.010-1.030); Urine Urobilinogen Negative (Negative)
[2019-08-07 20:21] LABS: Urine Bacteria Absent (Absent); Urine Red Blood Cell Trace(0-2/hpf) (Absent); Urine Squamous Epithelial Cell Present (Absent); Urine White Blood Cell Trace(0-5/hpf) (Absent)
[2019-08-07 20:42] VITALS: BP 113/66
--- NOTE | 2019-08-07 20:55 | ED ---
Neurological HPI - HPI Summary HPI Summary: 49 y/o female w hx MS, possible seizure d/o, presented to [facility] for leg weakness and episode of possible AMS. She notes last night it felt like time was skipping, and she knows that people were taking care of her but she does not remember all of it. She notes that this morning she noticed she could not move her leg below the knee as well as normal when attempting to go to the bathroom (usually able to transfer from bed to chair, does not walk). No trauma. She reports chronic back pain, no new symptoms. She has hx of MS, for which her last flare was 2 months ago. Pt notes hx of UTI and arthritis in her back. She uses a motorized chair to move. She sees Dr. Lara. - History of Current Complaint Chief Complaint: EDSeizure Stated Complaint: FOCAL SEIZURE PER EMS Time Seen by Provider: 08/07/19 18:06 Hx Obtained From: Patient Current Severity: Mild Pain Intensity: 3 Pain Scale Used: 0-10 Numeric Character: Weak - left leg Associated Signs and Symptoms: Positive: Weakness - left leg - Additional Pertinent History Primary Care Physician: [id number] - Allergy/Home Medications Allergies/Adverse Reactions: Allergies Allergy/AdvReac Type Severity Reaction Status Date / Time bee venom protein (honey bee) Allergy Severe See Comment Verified 08/07/19 19:52 onion Allergy Severe See Comment Verified 08/07/19 19:52 Sulfa (Sulfonamide Allergy Severe Unknown Verified 08/07/19 19:52 Antibiotics) Reaction Details aspirin Allergy Intermediate Nausea Verified 08/07/19 19:52 Penicillins Allergy Intermediate See Comment Verified 08/07/19 19:52 Mccormick And Derivatives Allergy Unknown See Comment Verified 08/07/19 19:52 erythromycin base Allergy Unknown Verified 08/07/19 19:52 Reaction Details PMH/Surg Hx/FS Hx/Imm Hx Endocrine/Hematology History: Reports: Hx Thyroid Disease Denies: Hx Diabetes, Hx Anemia, Hx Unexplained Bleeding, Other Endocrine/ Hematological Disorders Cardiovascular History: Denies: Hx Aneurysm, Hx Angina, Hx Angioplasty, Hx Auto Implanted Cardiovert Defib, Hx Cardiac Arrest, Hx Cardiomegaly, Hx Congenital Heart Disease, Hx Congestive Heart Failure, Hx Coronary Artery Disease, Hx Deep Vein Thrombosis, Hx Embolism, Hx Hypercholesterolemia, Hx Hypotension, Hx Hypertension, Hx Pacemaker/ICD, Hx Peripheral Vascular Disease, Hx Rheumatic Fever, Hx Syncope, Hx Valvular Heart Disease, Other Cardiovascular Problems/Disorders Respiratory History: Reports: Hx Asthma - as a child, Hx Pulmonary Embolism, Hx Sleep Apnea Denies: Hx Chronic Bronchitis, Hx Chronic Obstructive Pulmonary Disease (COPD ), Hx Cystic Fibrosis, Hx Lung Cancer, Hx Pleural Effusion, Hx Pneumonia, Hx Pulmonary Edema, Hx Seasonal Allergies, Other Respiratory Problems/Disorders GI History: Reports: Hx Gastroesophageal Reflux Disease, Hx Ulcer Denies: Hx Gastrointestinal Bleed, Hx Hiatal Hernia History: Reports: Other Problems/Disorders - urinary incontinence Denies: Hx Dialysis, Hx Kidney Stones, Hx Renal Disease Musculoskeletal History: Reports: Hx Arthritis - knees, right hand, Hx Back Problems, Other Musculoskeletal History - MS Denies: Hx Bursitis, Hx Congenital Bone Abnormalities, Hx Fibromyalgia, Hx Gout, Hx Orthopedic Injury, Hx Osteoporosis, Hx Scoliosis, Hx Tendonitis Sensory History: Reports: Hx Contacts or Glasses, Other Sensory Impairments - Numbness in feet Denies: Hx Cataracts, Hx Eye Injury, Hx Eye Prosthesis, Hx Glaucoma, Hx Legally Blind, Hx Macular Degeneration, Hx Vision Problem, Hx Deafness, Hx Hearing Aid, Hx Hearing Problem Opthamlomology History: Reports: Hx Contacts or Glasses, Other Sensory Impairments - Numbness in feet Denies: Hx Cataracts, Hx Eye Injury, Hx Eye Prosthesis, Hx Glaucoma, Hx Legally Blind, Hx Macular Degeneration, Hx Vision Problem Neurological History: Reports: Hx Headaches, Hx Migraine, Hx Nerve Disease, Hx Seizures, Other Neuro Impairments/Disorders - MS Denies: Hx Dementia, Hx Developmental Delay, Hx Spinal Cord Injury, Hx Transient Ischemic Attacks (TIA) Psychiatric History: Reports: Hx Anxiety, Hx Depression, Hx Suicide Attempt, Hx Substance Abuse Denies: Hx Attention Deficit Hyperactivity Disorder, Hx Eating Disorder, Hx Panic Disorder, Hx Post Traumatic Stress Disorder, Hx Inpatient Treatment, Hx Community Mental Health Tx, Hx Schizophrenia, Hx Bipolar Disorder, Hx of Violent Episodes Against Others, Other Psychiatric Issues/Disorders - Cancer History Hx Chemotherapy: Yes - For MS Hx Radiation Therapy: No - Surgical History Surgery Procedure, Year, and Place: BREAST REDUCTION 2005, oral surgeries Hx Anesthesia Reactions: No - Immunization History Date of Tetanus Vaccine: Unknown Date of Influenza Vaccine: Unk re: Fall 2014 Infectious Disease History: No Infectious Disease History: Denies: Hx Clostridium Difficile, Hx Hepatitis, Hx Human Immunodeficiency Virus (HIV), Hx of Known/Suspected MRSA, Hx Shingles, Hx Tuberculosis, Hx Known/ Suspected VRE, Hx Known/Suspected VRSA, History Other Infectious Disease, Traveled Outside the [place] in Last 30 Days - Family History Known Family History: Positive: Cardiac Disease - Father, Diabetes Family History: FHx of spina bifida - Social History Alcohol Use: None 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 (-) Distressed Skin: Warm, Dry HENT: Normocephalic; Atraumatic Eyes: Conjunctiva normal Neck: Musculoskeletal ROM normal neck. (-) JVD Cardio: Rhythm regular, rate normal, Heart sounds normal; Intact distal pulses; Radial pulses are 2+ and symmetric. (-) Murmur Pulmonary/Chest wall: Effort normal. (-) Respiratory distress, (-) Wheezes, (-) Rales, port on right chest wall Abd: Soft. (-) Tenderness, (-) Distension, (-) Guarding, (-) Rebound Musculoskeletal: (-) Edema Lymph: (-) Cervical adenopathy Neuro: Alert, PERRL, Oriented x3 Cranial nerves II-XII are grossly intact. SILT aside from dec sensation below L knee, Strength 2/5 LLE and 4/5 RLE, (-) Dysmetria, (-) Nystagmus. Ambulation deferred. Psych: Mood and affect Normal Triage Information Reviewed: Yes Vital Signs On Initial Exam: Initial Vitals Temp Pulse Resp BP Pulse Ox 97.0 F 80 18 121/70 99 08/07/19 17:24 08/07/19 17:24 08/07/19 17:24 08/07/19 17:24 08/07/19 17:24 Vital Signs Reviewed: Yes Procedures - Sedation Patient Received Moderate/Deep Sedation with Procedure: No Diagnostics - Vital Signs Vital Signs Temp Pulse Resp BP Pulse Ox 08/07/19 20:43 97.8 F 83 16 113/66 98 08/07/19 20:26 16 113/66 08/07/19 20:00 22 08/07/19 19:56 17 117/70 08/07/19 19:26 19 124/72 08/07/19 19:01 18 08/07/19 18:55 22 129/79 08/07/19 18:25 80 121/66 100 08/07/19 18:01 77 26 99 08/07/19 17:55 77 14 112/74 99 08/07/19 17:27 81 6 100 08/07/19 17:26 80 121/70 97 08/07/19 17:24 97.0 F 80 18 121/70 99 - Laboratory Lab Results: Lab Results 08/07/19 08/07/19 08/07/19 Range/Units 19:15 19:15 20:07 WBC 4.6 (3.5-10.8) 10^3/uL RBC 4.00 (3.70-4.87) 10^6 /uL Hgb 12.4 (12.0-16.0) g/dL Hct 37 (35-47) % MCV 94 (80-97) fL MCH 31 (27-31) pg MCHC 33 (31-36) g/dL RDW 14 (10-15) % Plt Count 294 (150-450) 10^3/uL MPV 8.0 (7.4-10.4) fL Neut % (Auto) 64.5 % Lymph % (Auto) 23.5 % [place] % (Auto) 11.2 % Eos % (Auto) 0.0 % Baso % (Auto) 0.8 % Absolute Neuts (auto) 2.9 (1.5-7.7) 10^3/ul Absolute Lymphs (auto) 1.1 (1.0-4.8) 10^3/ul Absolute Monos (auto) 0.5 (0-0.8) 10^3/ul Absolute Eos (auto) 0.0 (0-0.6) 10^3/ul Absolute Basos (auto) 0.0 (0-0.2) 10^3/ul Absolute Nucleated RBC 0.0 10^3/ul Nucleated RBC % 0.1 Sodium 139 (135-145) mmol/L Potassium 3.8 (3.5-5.0) mmol/L Chloride 103 (101-111) mmol/L Carbon Dioxide 30 (22-32) mmol/L Anion Gap 6 (2-11) mmol/L BUN 10 (6-24) mg/dL Creatinine 0.84 (0.51-0.95) mg/dL Est GFR ( Amer) 86.8 (>60) Est GFR (Non-Af Amer) 71.8 (>60) BUN/Creatinine Ratio 11.9 (8-20) Glucose 114 H (70-100) mg/dL Calcium 9.5 (8.6-10.3) mg/dL Total Bilirubin 0.20 (0.2-1.0) mg/dL AST 19 (13-39) U/L ALT 16 (7-52) U/L Alkaline Phosphatase 186 H (34-104) U/L Total Protein 6.7 (6.4-8.9) g/dL Albumin 4.3 (3.2-5.2) g/dL Globulin 2.4 (2-4) g/dL Albumin/Globulin Ratio 1.8 (1-3) Urine Color Yellow Urine Appearance Clear Urine pH 7.0 (5-9) Ur Specific Simms 1.012 (1.010-1.030) Urine Protein Negative (Negative) Urine Ketones Negative (Negative) Urine Blood Negative (Negative) Urine Nitrate Negative (Negative) Urine Bilirubin Negative (Negative) Urine Urobilinogen Negative (Negative) Ur Leukocyte Esterase Trace A (Negative) Urine WBC (Auto) Trace(0-5/hpf) (Absent) Urine RBC (Auto) Trace(0-2/hpf) (Absent) Ur Squamous Epith Cells Present A (Absent) Urine Bacteria Absent (Absent) Urine Glucose Negative (Negative) Urine Ascorbic Acid * A (Negative) Result Diagrams: 08/07/19 19:15 08/07/19 19:15 Lab Statement: Any lab studies that have been ordered have been reviewed, and results considered in the medical decision making process. Course/Dx - Course Course Of Treatment: 49 y/o F w hx MS p/w L leg weakness. Also reporting headache, has hx migraines and this feels similar. Requesting excedrin. No e/o infection on labs or urine. - regarding weakness, likely progression of disease. D/w Dr. Lara who recommends one dose of steroids and no further imaging as this is likely progression of chronic disease. - patient give fioricet and steroids, can return to [facility] - Diagnoses Provider Diagnoses: Migraine, Multiple sclerosis, Left leg weakness - Physician Notifications Discussed Care Of Patient With: Deo Lara Time Discussed With Above Provider: 18:42 Instructed by Provider To: Other - Pt case was discussed with Dr. Lara, who recommends 500mg of Solumedrol, and states the pt can go home without imaging Discharge ED - Sign-Out/Discharge Documenting (check all that apply): Patient Departure - dc - Discharge Plan Condition: Stable Disposition: HOME Patient Education Materials: Migraine Headache (ED), Multiple Sclerosis (DC) Referrals: Chiki Chandler MD [Primary Care Provider] - Additional Instructions: You were seen in the emergency department for a migraine and weakness. Your labs didn't show any evidence of infection. We gave you one dose of steroids here. Please follow up with your neurologist.. Please follow up with your primary care doctor in next 2-3 days and return to emergency department for worsening headaches, weakness, fevers, or concerning symptoms. It was a pleasure taking care of you today. - Billing Disposition and Condition Condition: STABLE Disposition: Home - Attestation Statements Document Initiated by Polly: Yes Documenting Scribe: Joseluis Drake Provider For Whom Polly is Documenting (Include Credential): Blanca Bradshaw Scribe Attestation: Joseluis Baez, scribed for Blanca Silvase on 08/08/19 at 1623. Scribe Documentation Reviewed: Yes Provider Attestation: The documentation as recorded by the Joseluis mark accurately reflects the service I personally performed and the decisions made by Blanca dunn Status of Scribe Document: Viewed
== END 2019-08-07 20:43 | disposition home or self-care (01) ==
LOC: ED 17:06
DX: R53.1 Weakness (principal); G43.909 Migraine, unspecified, not intractable, without status migrainosus; G35 Multiple sclerosis; E07.9 Disorder of thyroid, unspecified; J45.909 Unspecified asthma, uncomplicated; Z86.711 Personal history of pulmonary embolism; K21.9 Gastro-esophageal reflux disease without esophagitis; F41.9 Anxiety disorder, unspecified; F32.9 Major depressive disorder, single episode, unspecified; Z87.891 Personal history of nicotine dependence; Z88.0 Allergy status to penicillin; Z88.1 Allergy status to other antibiotic agents; Z88.2 Allergy status to sulfonamides; Z88.8 Allergy status to other drugs, medicaments and biological substances
CPT/HCPCS: 36415; 80053; 81003; 81015; 85025; 87086; 96374; 99284; A9270-GY; J2930

== ENCOUNTER 2019-10-10 23:47 | Observation (INO) | payer MEDICARE, MEDICAID ==
[2019-10-11] MEDS ORDERED: NS 0.9% 1000 ML** 1,000 ML IV ONE (00:26)
[2019-10-11 00:58] LABS: ABS Lymphocytes 1.2 10^3/ul (1.0-4.8); ABS Monocytes 0.5 10^3/ul (0-0.8); ABS Neutrophils 2.5 10^3/ul (1.5-7.7); Hematocrit 39 % (35-47); Hemoglobin 13.1 g/dL (12.0-16.0); Lymphocyte % 27.8 %; Mean Corpuscular HGB Conc 34 g/dL (31-36); Mean Corpuscular Hemoglobin 31 pg (27-31); Mean Corpuscular Volume 92 fL (80-97); Nucleated Red Blood Cells % 0.1; Platelet Count 261 10^3/uL (150-450); Red Blood Count 4.27 10^6 /uL (3.70-4.87); Red Cell Distribution Width 14 % (10-15); White Blood Count 4.2 10^3/uL (3.5-10.8)
--- OUTSIDE RECORDS SUMMARY | 2019-10-11 01:04 | XMS REPORT ---
:1970 Author Organization [facility] Care Team Providers Name Role Phone Stephany Carson Primary Care Physician Unavailable Allergies, Adverse Reactions, Alerts Allergy Code CodeSystem Reaction Severity Criticality Status Start Substance Date nkda Moderate Active Medications Medication Medication Medication Start Stop Route Dose Status Fill Code CodeSystem Date Date Instructions Linzess [id number] RxNorm oral 290 mcg active for 30 capsule day(s) Rexulti 2195183 RxNorm 2017-06 oral 1 mg active for 30 2-26 tablet day(s) amantadine HCl 952795 RxNorm oral 100 mg active for 30 1-18 tablet day(s) omeprazole 194821 RxNorm oral 20 mg active for 30 1-23 capsule,d day(s) elayed release(D R/EC) methylphenidate 6714647 RxNorm 2018- oral 36 mg 1 active 1 tablet HCl 4-18 05-18 tablet once a day extended for 30 day(s) release 24hr once a day oxycodone 0667747 RxNorm oral 10 mg active for 23 4-03 tablet day(s) levothyroxine 521337 RxNorm oral 75 mcg active for 90 6-08 tablet day(s) lithium carbonate 19780220 RxNorm 2017-06 oral 300 mg active for 30 2-05 tablet day(s) extended release baclofen 19730220 RxNorm 2017-06 oral 10 mg active for 30 2-26 tablet day(s) carbamazepine 424548 RxNorm 2019 oral 200 mg active for 30 1-09 tablet day(s) morphine 877564 RxNorm 2019-0 oral 30 mg active for 30 4-03 tablet day(s) extended release Viibryd 9001245 RxNorm 2017-06 2019- oral 40 mg active for 30 1-06 07-17 tablet day(s) Problems Problem Name Code CodeSystem Alternate Alternate Start End Status Narrative Code CodeSystem Date Date Dysthymia 88035120 SNOMED-CT 2018- Active 3-27 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, 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, unspecified Relevant diagnostic tests/laboratory data Narrative No Information Procedures Procedure Code CodeSystem Target Date of Status Service Device Device Device Name Site Procedure Delivery Code Name UID Location Psychotherap [id number] SNOMED-CT () 2018-09-29 complete Mental y, 45 04 d Health- minutes with [place], [id number] [phone] Psychotherap [id number] SNOMED-CT () 2018-09-23 complete Mental y, 45 04 d Health- minutes with [address], [id number] [phone] Psychotherap [id number] SNOMED-CT () 2018-10-05 complete Mental y, 45 04 d Health- minutes with [place] patient [address], [phone] [phone] Psychotherap [id number] SNOMED-CT () 2018-10-15 complete Mental y, 45 04 d Health- minutes with [address], [phone] [phone] Psychotherap [id number] SNOMED-CT () 2018-10-20 complete Mental y, 45 04 d Health- minutes with [place] [address], [phone] [phone] Psychotherap [id number] SNOMED-CT () 2018-10-27 complete Mental y, 45 04 d Health- minutes with [place], [id number] [phone] [employer] [id number] SNOMED-CT () 2018-11-16 complete Mental l 7 d Health- intervention [place] for medical [address], [facility], [facility], behalf with [phone] agencies, [phone] employers, or institutions SNOMED-CT () 2018-12-08 complete Mental d Health- [place] [address], [id number] [phone] [employer] [id number] SNOMED-CT () 2018-12-10 complete Mental l 7 d Health- intervention [place] for [address] on [facility], [facility] [place], patient's NH, behalf with [phone] agencies, [phone] employers, or institutions [employer] [id number] SNOMED-CT () 2018-12-09 complete Mental l 7 d Health- intervention [place] for [address], [facility], patient's NH, behalf with [phone] agencies, [phone] employers, or institutions [employer] [phone] SNOMED-CT () 2018-12-14 complete Mental l 7 d Health- intervention [place] for [address], [facility], patient's NH, behalf with [phone] agencies, [phone] employers, or institutions Psychotherap 452001 SNOMED-CT () 2018-12-14 complete Mental y, 45 04 d Health- minutes with [place] patient [address], [id number] [phone] Office [place] [id number] SNOMED-CT () 2018-12-22 complete Mental other 7 d Health- outpatient [place] visit for [address], of an NH, established [phone] patient, [phone] which requires at least 2 of these 3 kern components: An expanded problem focused history; An expanded problem focused examination; Medical decision making of low Psychotherap 777954 SNOMED-CT () 2018-12-21 complete Mental y, 45 04 d Health- minutes with [place] patient [address], [id number] [phone] Psychotherap [id number] SNOMED-CT () 2018-12-31 complete Mental y, 45 04 d Health- minutes with [place] patient [address], [phone] [phone] [employer] [id number] SNOMED-CT () 2018-12-31 complete Mental l 7 d Health- intervention [place] for medical [address] [facility] behalf with [phone] agencies, [phone] employers, or institutions Psychotherap 274955 SNOMED-CT () 2019-01-05 complete Mental y, 45 04 d Health- minutes with [place] [address], [id number] [phone] Psychotherap 246526 SNOMED-CT () 2019-01-13 complete Mental y, 45 04 d Health- minutes with [place] patient [address], [phone] [employer] [id number] SNOMED-CT () 2018-12-29 complete Mental l 7 d Health- intervention [place] for [address] [facility] behalf with [phone] agencies, [phone] employers, or institutions [employer] [phone] SNOMED-CT () 2019-03-11 complete Mental l 7 d Health- intervention [place] for [address] [facility], behalf with [phone] agencies, [phone] employers, or institutions Psychotherap 547887 SNOMED-CT () 2019-03-10 complete Mental y, 45 04 d Health- minutes with [place] [address], [phone] [phone] Psychotherap [id number] SNOMED-CT () 2019-03-17 complete Mental y, 45 04 d Health- minutes with [place] patient [address], [id number] [phone] Psychotherap [id number] SNOMED-CT () 2019-03-31 complete Mental y, 45 04 d Health- minutes with [place] [address], [phone] [phone] Psychotherap [id number] SNOMED-CT () 2019-04-08 complete Mental y, 45 04 d Health- minutes with [place] [address], [id number] [phone] Office or [id number] SNOMED-CT () 2019-07-27 complete Mental other 7 d Health- outpatient [place] visit for [address], [facility], [facility], established [phone] patient, [phone] which requires at least 2 of these 3 kern components: An expanded problem focused history; An expanded problem focused examination; Medical decision making of low Encounters/Encounter Diagnoses Encounter Name Encounter Diagnosis Diagnosis Diagnosis Date of Service Code Code Name CodeSystem Diagnosis Delivery Location Established [id number] Post-traumati SNOMED-CT 2019-07-27 Behavioral patient 1529 c stress Health minutes disorder, Clinic [address] [place], [place], [id number] Vital Signs No Information Social History Element Description Description Start End Code CodeSystem AdditionalInfo Date Date SexAssignedAtBirth Female 1969-06 F AdministrativeGender 08-14 Hospital Discharge Instructions Reason For Referral Medical Equipment FDA Assessments
--- OUTSIDE RECORDS SUMMARY | 2019-10-11 01:05 | XMS REPORT ---
:1970 Author Organization [facility] Care Team Providers Name Role Phone Unavailable Unavailable Unavailable Problems Condition Condition Condition Status Onset Resolution Last Treating Comments Name Details Category Date Date Treatment Clinician Date Multiple Multiple Diagnosis Active 2018-06 Shayy sclerosis sclerosis 2-12 Wendela [id number] Allergies, Adverse Reactions, Alerts Allergy Name Allergy Status Severity Reaction(s) Onset Inactive Treating Comments Type Date Date Clinician Bactrim Medication Active Unknown Reaction Yuridia White Name ID Unknown 8-22 Bees Unknown Active Unknown Reaction Yuridia White Unknown 8-22 onion Base Active Unknown Reaction Yuridia White Ingredient Unknown 8-22 Nardin Unknown Active Unknown Reaction Yuridia White Unknown 8-22 Penicillins Allergen Active Unknown Reaction Yuridia White Group Unknown 8-22 aspirin Base Active Unknown Reaction Yuridia White Ingredient Unknown 8-22 Sulfa Allergen Active Unknown Reaction 2017-06 Yuridia White (Sulfonamide Group Unknown 0-26 Antibiotics) [...]
--- OUTSIDE RECORDS SUMMARY | 2019-10-11 01:05 | XMS REPORT | Continuity of Care Document ---
:1970 External Reference #:[id number] Author Name Thalia Cisneros DNP, RN, BO-BC (transmitted by agent of provider Savannah Lagunas) Address [address] [facility], [address] [place] [address] Care Team Providers Name Role Phone Chiki Chandler MD - Internal Care Team Information Motion Picture Projectionist Medicine Problems Active Problems Provider Date Multiple sclerosis Shelley Barahona M.D. Onset: 11/30/2014 Depressive disorder Shelley Barahona M.D. Onset: 11/30/2014 Other sleep disorders Jennifer Soto MD Onset: 02/12/2017 Obstructive sleep apnea syndrome Thalia Cisneros DNP, RN, PRE BILLING CLINICIAN-BC Onset: Hypersomnia Thalia Cisneros DNP, RN, PRE BILLING CLINICIAN-BC Onset: 09/04/2017 Taking medication Tim Lara M.D. [...] Unknown Never Smoked Cigarettes Smoking Status Reviewed: 08/30/19 Never Smoked Cigarettes ETOH Use Denies alcohol [...] day N.P. code c Wheelchair OT-[facility]2018 [facility] mobility M.D. evaluation Baclofen take 1.5 tabs 90tabs [facility], 03/08/2018 10mg Tablets twice a day M.D. Hospital Bed [facility] hospital bed, with M.D. half rails and overhead trapeze for limited mobility.. Dx MS.. Amantadine HCL 1 by mouth twice [facility], 12/12/2013 100mg daily M.D. Tablets Cyanocobalamin sublingual [...] every Unknown 50mg Tablets day ER 24HR [place] Carbonate ER 2 tabs by mouth at Unknown bedtime 450mg Tablets ER Linaclotide 290 mcg 1 tab by mouth Unknown daily Carbamazepine take 1 tablet by Unknown 200mg mouth twice daily Tablets Rexulti Take 1 Tablet By Unknown 1mg Tablets Mouth Every Day Oxycodone HCL 1 pill by mouth 60tabs [facility], 10mg every 12 hours prn M.D. Tablets pain Klor-Con 10 1 by mouth every 90tabs Unknown 10Meq day Tablets ER Omeprazole 1 by mouth every Unknown 20mg Tablets day, as needed DR Taylor 1 by mouth every 30tabs Unknown 40mg Tablets day History Medications Vimpat 30 ml by mouth in 1800ml [facility], 07/15/2019 - 10mg/ml am and 30 ml at N.P. 07/14/2019 Solution bedtime Code C Vimpat 1 tab twice a day 60tabs [facility], 06/30/2019 - 50mg Tablets N.P. 07/15/2019 Immunizations Description No Information Available Vital Signs Date Vital Result Comment 08/30/2019 10:06am Height 65.5 inches 5'5.50" Weight 155.00 lb reported Heart Rate 81 /min BP Systolic 122 mmHg BP Diastolic 78 mmHg O2 % BldC Oximetry 98 % BMI (Body Mass Index) 25.4 kg/m2 07/28/2019 10:58am Height 65.5 inches 5'5.50" Weight 155.00 lb Heart Rate 72 /min BP Systolic Sitting 108 mmHg BP Diastolic Sitting 78 mmHg Respiratory Rate 14 /min Body Temperature 98.1 F BMI (Body Mass Index) 25.4 kg/m2 Results Test Acquired Date Facility Test Result H/L Range Note Surgical 06/24/2019 Surgical SEE RESULT [address] [place] [address] [phone] PDFReport SEE IMAGE Order 04/07/2019 EEG, 72 Hour Ambulatory [address] [place] [address] [phone] 1 SEE RESULT BELOW Name: DINA CISNEROS Wen : [address]: Дмитрий Rutledge MD Acct: [id number] Unit: [id number] AGE: 49 Location: [facility] 340-01 Re06/21/19 Dis: 06/27/19 SEX: F Status: DIS IN SPEC: [id number] JOVANA: 06/24/19-1210 [facility] DR: Artur Cabrales MD REQ: [id number] RECD: 06/24/19-6590 STATUS: SOUT _ ORDERED: LEVEL 3 FINAL [...] and the wall thickness averages 0.1 cm. Surfacing Machine Operator sections, one cassette. Signed by and Reported on: Reyes Medeiros MD 12/09 1414 END OF REPORT DEPARTMENT OF PATHOLOGY, [address] [place] [address] Reyes Medeiros M.D. Director [facility] # [id number] Procedures Date Code Description Status 06/26/2019 36075 EKG, Interpretation Only Completed 06/24/2019 60337 Laparoscopy Cholecystectomy Completed 06/24/2019 11313 Laparoscopy Cholecystectomy Completed 06/19/2019 46322 EEG Monitoring Computer Completed 03/23/2019 42408 EEG Recording Awake & Drowsy Completed Medical Devices Description No Information Available Encounters Type Date Location Provider Dx Diagnosis Office Visit 08/30/2019 Pulmonology And Thalia Cisneros, G47.33 Obstructive sleep 10:30a [facility] FNP-BC apnea (adult) [facility] (pediatric) Office Visit 07/05/2019 Pulmonology And Thalia Cisneros, G47.33 Obstructive sleep 9:30a [facility] FNP-BC apnea (adult) [facility] (pediatric) G47.14 Hypersomnia due to medical condition Office Visit 06/27/2019 10:15a [facility] Дмитрий Rutledge, K80.51 Calculus of bile Assjamaal guzman MD duct w/o Hospitalists cholangitis or cholecyst w obst Z90.49 Acquired absence of other specified parts of digestive tract Office Visit 06/26/2019 10:14a [facility] Дмитрий Rutledge, R10.11 Right upper Assocjamaal MD quadrant pain Hospitalists G35 Multiple sclerosis F32.9 Major depressive disorder, single episode, unspecified M25.519 Pain in unspecified shoulder Office Visit 06/25/2019 10:14a [facility] Дмитрий Rutledge, R10.11 Right upper Assjamaal guzman MD quadrant pain Hospitalists G35 Multiple sclerosis F32.9 Major depressive disorder, single episode, unspecified Office Visit 06/24/2019 10:13a [facility] Vitaly R10.11 Right upper Assjamaal guzman PA quadrant pain Hospitalists F32.9 Major depressive disorder, single episode, unspecified Z86.69 Personal history of dis of the nervous sys and sense organs Office Visit 06/23/2019 Neurohospitalist Sreekanth Arcos G35 Multiple 7:00a Cheikh Quinonez M.D. sclerosis Office Visit 06/23/2019 [facility] Vitaly R10.11 Right upper 10:13a Assjamaal guzman Hospitalists LALI Sue quadrant pain Z86.69 Personal history of dis of the nervous sys and sense organs Office Visit 06/23/2019 Surgical Artur Arcos K80.10 Calculus of 7:00a [facility] MD Samra gallbladder w chronic cholecyst w/o obstruction Office Visit 06/22/2019 [facility] Dina R10.11 Right upper 10:12a Assoc,jamaal Valencia NP quadrant pain Hospitalists F32.9 Major depressive disorder, single episode, unspecified E03.9 Hypothyroidism, unspecified G35 Multiple sclerosis Office Visit 06/22/2019 Surgical Artur S. K80.10 Calculus of 7:00a [facility] MD Samra gallbladder w chronic cholecyst w/o obstruction Office Visit 06/21/2019 [facility] Дмитрий Rultedge MD R10.11 Right upper 10:12a Assoc,pc quadrant pain Hospitalists G35 Multiple sclerosis E03.9 Hypothyroidism, unspecified F31.9 Bipolar disorder, unspecified N39.0 Urinary tract infection, site not specified Office Visit 06/07/2019 [facility] Yasmany N39.0 Urinary tract 9:40a Assocjamaal M.D. infection, site Hospitalists not specified G35 Multiple sclerosis F32.9 Major depressive disorder, single episode, unspecified J45.909 Unspecified asthma, uncomplicated G43.909 Migraine, unsp, not intractable, without status migrainosus G47.33 Obstructive sleep apnea (adult) (pediatric) Office Visit 06/06/2019 9:39a [facility] Vitaly E53.8 Deficiency of Assoc,pc LALI Sue other specified Hospitalists B group vitamins G35 Multiple sclerosis R94.6 Abnormal results of thyroid function studies R56.9 Unspecified convulsions N39.0 Urinary tract infection, site not specified G47.33 Obstructive sleep apnea (adult) (pediatric) Office Visit 06/04/2019 9:39a [facility] Angi Perales, G35 Multiple Assoc,pc N.P. sclerosis Hospitalists N32.81 Overactive bladder E03.9 Hypothyroidism, unspecified G40.909 Epilepsy, unsp, not intractable, without status epilepticus G89.29 Other chronic pain R10.9 Unspecified abdominal pain Office Visit 06/02/2019 1:12p [facility] Kelley High, G35 Multiple Assoc,jamaal Weaver sclerosis Hospitalists R13.10 Dysphagia, unspecified J45.909 Unspecified asthma, uncomplicated Z96.0 Presence of urogenital implants Z51.5 Encounter for palliative care F32.9 Major depressive disorder, single episode, unspecified Office Visit 05/30/2019 1:11p Palliative Care Zahra Garcia, G35 [facility] sclerosis R13.10 Dysphagia, unspecified Office Visit 05/28/2019 1:11p [facility] Kelley High, G35 Multiple Assoc,pc Owen sclerosis Hospitalists R53.1 Weakness Office Visit 04/07/2019 3:30p [facility] Rick, G35 [facility] N.P. sclerosis J45.909 Unspecified asthma, uncomplicated R41.2 Retrograde amnesia R56.9 Unspecified convulsions R35.0 Frequency of micturition G47.33 Obstructive sleep apnea (adult) (pediatric) Office Visit 04/06/2019 [facility] R19.7 Diarrhea, 12:54p Assoc,jamaal Valencia, CLASS B TRUCK DRIVER unspecified Hospitalists E87.6 Hypokalemia G35 Multiple sclerosis J45.909 Unspecified asthma, uncomplicated F32.9 Major depressive disorder, single episode, unspecified G43.909 Migraine, unsp, not intractable, without status migrainosus R39.81 Functional urinary incontinence G47.33 Obstructive sleep apnea (adult) (pediatric) Office Visit 04/05/2019 [facility] R19.7 Diarrhea, 12:53p Assoc,pc Erik, CLASS B TRUCK DRIVER unspecified Hospitalists N39.0 Urinary tract infection, site not specified G35 Multiple sclerosis M54.9 Dorsalgia, unspecified F31.9 Bipolar disorder, unspecified E03.9 Hypothyroidism, unspecified Office Visit 03/25/2019 10:10a [facility] Dermatology Rich Teran, D22.5 Melanocytic nevi of trunk L91.8 Other hypertrophic disorders of the skin L82.1 Other seborrheic keratosis Assessments Date Code Description Provider 08/30/2019 G47.33 Obstructive sleep apnea (adult) Thalia Cisneros DNP, RN, (pediatric) [facility] 07/28/2019 K80.10 Calculus of gallbladder with chronic LALI Louie cholecystitis without obstruction 07/05/2019 G47.33 Obstructive sleep apnea (adult) Thalia Cisneros DNP, RN, (pediatric) PRE BILLING CLINICIAN-BC 07/05/2019 G47.14 Hypersomnia due to medical condition Thalia Cisneros, DNP , RN, PRE BILLING CLINICIAN- 06/27/2019 K80.51 Calculus of bile duct without Дмитрий Rutledge MD cholangitis or cholecystitis with obstruction 06/27/2019 K80.10 Calculus of gallbladder with chronic Artur Cabrales MD cholecystitis without obstruction 06/27/2019 Z90.49 Acquired absence of other specified Дмитрий Rutledge MD parts of digestive tract 06/26/2019 R10.11 Right upper quadrant pain Дмитрий Rutledge MD 06/26/2019 R06.02 Shortness of breath Srini Martinez M.D., [facility] 06/26/2019 G35 Multiple sclerosis Дмитрий Rutledge [...] K80.10 Calculus of gallbladder with chronic Artur aCbrales MD cholecystitis without obstruction 06/24/2019 Z86.69 Personal [...] R10.11 Right upper quadrant pain Dina Valencia, CLASS B TRUCK DRIVER 06/22/2019 F32.9 Major depressive disorder, single Dina Valencia, CLASS B TRUCK DRIVER episode, unspecified 06/22/2019 E03.9 Hypothyroidism, unspecified Dina Valencia, CLASS B TRUCK DRIVER 06/22/2019 G35 Multiple sclerosis Dina Valencia, CLASS B TRUCK DRIVER 06/21/2019 R10.11 Right upper quadrant pain Дмитрий Rutledge MD 06/21/2019 G35 Multiple sclerosis Дмитрий Rutledge MD 06/21/2019 E03.9 Hypothyroidism, unspecified Дмитрий Rutledge MD 06/21/2019 F31.9 Bipolar disorder, unspecified Дмитрий Rutledge MD 06/21/2019 N39.0 Urinary tract infection, site not Дмитрий Rutlegde MD specified 06/19/2019 R56.9 Unspecified convulsions Breann [...] R13.10 Dysphagia, unspecified Zahra Garcia MD 05/28/2019 G35 Multiple sclerosis Kelley High M.D. 05/28/2019 R53.1 Weakness Kelley High M.D. 04/07/2019 G35 Multiple sclerosis Bello Rick, N.P. 04/07/2019 J45.909 Unspecified asthma, uncomplicated Bello Rick, N.P. 04/07/2019 R41.2 Retrograde amnesia Bello Rick, N.P. 04/07/2019 R56.9 Unspecified convulsions Bello Rick, N.P. 04/07/2019 R35.0 Frequency of micturition Bello Rick, N.P. 04/07/2019 G47.33 Obstructive sleep apnea (adult) Bello Rick, N.P. (pediatric) 04/06/2019 R19.7 Diarrhea, unspecified Dina Erik, CLASS B TRUCK DRIVER 04/06/2019 E87.6 Hypokalemia Dina Thurmond, CLASS B TRUCK DRIVER 04/06/2019 G35 Multiple sclerosis Dina Erik, CLASS B TRUCK DRIVER 04/06/2019 J45.909 Unspecified asthma, uncomplicated Dina Thurmond, CLASS B TRUCK DRIVER 04/06/2019 F32.9 Major depressive disorder, single Dina Erik, CLASS B TRUCK DRIVER episode, unspecified 04/06/2019 G43.909 Migraine, unspecified, not Dina Erik, CLASS B TRUCK DRIVER intractable, without status migrainosus 04/06/2019 R39.81 Functional urinary incontinence Dina Erik, CLASS B TRUCK DRIVER 04/06/2019 G47.33 Obstructive sleep apnea (adult) Dina Thurmond, CLASS B TRUCK DRIVER (pediatric) 04/05/2019 R19.7 Diarrhea, unspecified Dina Thurmond, CLASS B TRUCK DRIVER 04/05/2019 N39.0 Urinary tract infection, site not Dina Erik, CLASS B TRUCK DRIVER specified 04/05/2019 G35 Multiple sclerosis Dina Thurmond, CLASS B TRUCK DRIVER 04/05/2019 M54.9 Dorsalgia, unspecified Dina Erik, CLASS B TRUCK DRIVER 04/05/2019 F31.9 Bipolar disorder, unspecified Dina Thurmond, CLASS B TRUCK DRIVER 04/05/2019 E03.9 Hypothyroidism, unspecified Dina Erik, CLASS B TRUCK DRIVER 03/25/2019 D22.5 Melanocytic nevi of trunk Rich Teran MD 03/25/2019 L91.8 Other hypertrophic disorders of the Rich Teran MD skin 03/25/2019 L82.1 Other seborrheic keratosis Rich Teran MD 03/23/2019 R56.9 Unspecified convulsions Breann Gonzalez MD Plan of Treatment Future Appointment(s):10/26/2019 1:45 pm - Thalia Cisneros DNP, RN, PRE BILLING CLINICIAN-BC at [facility]09/13/2019 12:15 pm - Tim Lara M.D. at [facility]08/30/2019 - Thalia Cisneros DNP, RN, PRE BILLING CLINICIAN-BCG47.33 Obstructive sleep apnea (adult) (pediatric)Comments:NPSG Mild obstructive sleep apnea noted on recent sl study- AHI- 8.5, O2 ibeth 89%, worse in REM sleepFollow up:2 monthsRecommendations:Symptomatic, will request DME set ramp to 6 cm start. Resume PAP device Will request change to CPAPauto 7-10 cm, due to problems and excessive sleepiness will request in-lab CPAP titration for optimal pressure. Cleaning Wipe off mask daily (baby wipe-no scent, or warm water) Clean mask, tubing, filter, and water chamber weekly in mild no scent dish soap and water. Hang to dry. If you have any sleepiness [...] please call the [facility] at [phone]. Functional Status Description No Information Available Mental Status Description No Information Available Referrals Refer to Reason for Referral Status Appt Date Torin Tapia MD Eye Exam before starting Gilenya medication for Created [place] [address] [place] [address] [phone] Jennifer Soto MD f/u regarding broken cpap equipment-established Sent patient [address] [place] [address] [phone]
--- OUTSIDE RECORDS SUMMARY | 2019-10-11 01:05 | XMS REPORT ---
:1970 Author Organization [facility] Care Team Providers Name Role Phone Unavailable Unavailable Unavailable Problems Condition Condition Condition Status Onset Resolution Last Treating Comments Name Details Category Date Date Treatment Clinician Date Multiple Multiple Diagnosis Active 2018-06 Shayy sclerosis sclerosis 2-12 Wendela [id number] Allergies, Adverse Reactions, Alerts Allergy Name Allergy Status Severity Reaction(s) Onset Inactive Treating Comments Type Date Date Clinician Bactrim Medication Active Unknown Reaction Yuridia White Name ID Unknown 8-22 Bees Unknown Active Unknown Reaction Yuridia White Unknown 8-22 onion Base Active Unknown Reaction Yuridia White Ingredient Unknown 8-22 Kossuth Unknown Active Unknown Reaction Yuridia White Unknown [...]
--- OUTSIDE RECORDS SUMMARY | 2019-10-11 01:05 | XMS REPORT | Continuity of Care Document ---
:1970 External Reference #:[id number] Author Name Thalia Cisneros DNP, RN, ACCOUNT GENERAL MANAGER-BC Address [address], [address] [place] [address] Care Team Providers Name Role Phone Chiki Chandler MD - Internal Care Team Information Seamless Tube Drawer Medicine Problems Active Problems Provider Date Multiple sclerosis Shelley Barahona M.D. Onset: 11/30/2014 Depressive disorder Shelley Barahona M.D. Onset: 11/30/2014 Other sleep disorders Jennifer Soto MD Onset: 02/12/2017 Obstructive sleep apnea syndrome Thalia Cisneros DNP, RN, ACCOUNT GENERAL MANAGER-CASSI Onset: Hypersomnia Thalia Cisneros DNP RN, ACCOUNT GENERAL MANAGER-BC Onset: 09/04/2017 Taking medication Tim Lara M.D. [...] day N.P. code c Wheelchair OT-PT Wheelchair [facility] Marco, 05/10/2018 [facility] mobility M.D. evaluation Baclofen take 1.5 tabs 90tabs [facility], 03/08/2018 10mg Tablets twice a day M.D. Hospital Bed [facility]2018 [facility] hospital bed, with M.D. half rails and [...] every Unknown 50mg Tablets day ER 24HR Hermann Carbonate ER 2 tabs by mouth at Unknown bedtime 450mg Tablets ER Linaclotide 290 mcg 1 tab by mouth Unknown daily Carbamazepine take 1 tablet by Unknown 200mg mouth twice daily Tablets Rexulti Take 1 Tablet By Unknown 1mg Tablets Mouth Every Day Oxycodone HCL 1 pill by mouth 60tabs [facility], 10mg every 12 hours prn M.D. Tablets pain Klor-Con 10 1 by mouth every 90tabs Unknown 10Meq day Tablets ER Omeprazole 1 by mouth every Unknown 20mg Tablets day, as needed DR Taylor 1 by mouth every 30tabs Unknown 40mg Tablets day History Medications Vimpat 30 ml by mouth in 1800ml Bello [place], 07/15/2019 - 10mg/ml am and 30 ml at N.P. 07/14/2019 Solution bedtime Code C Vimpat 1 tab twice a day 60tabs [facility], 06/30/2019 - 50mg Tablets N.P. [...] Test Result H/L Range Note Surgical 06/24/2019 [facility] Surgical SEE RESULT [address] [place] [address] [phone] PDFReport SEE IMAGE Order 04/07/2019 [facility] EEG, 72 Hour Ambulatory [address] [place] [address] [phone] SEE RESULT BELOW Name: DINA CISNEROS Wen : [address]: Дмитрий Rutledge MD Acct: [id number] Unit: [id number] AGE: 49 Location: [facility] 340-01 Re06/21/19 Dis: 06/27/19 SEX: F Status: DIS IN SPEC: [id number] JOVANA: 06/24/19-[address] [facility] [address]: Artur Cabrales MD REQ: [id number] RECD: 06/24/19-3332 STATUS: SOUT _ ORDERED: LEVEL 3 FINAL [...] and the wall thickness averages 0.1 cm. Mason Apprentice sections, one cassette. Signed by and Reported on: Reyes Medeiros MD 12/09 1414 END OF REPORT DEPARTMENT OF PATHOLOGY, [address] [place] [address] Reyes Medeiros M.D. Director [facility] # [id number] Procedures Date Code Description Status 06/26/2019 67384 EKG, Interpretation Only Completed 06/24/2019 72405 Laparoscopy Cholecystectomy Completed 06/24/2019 52478 Laparoscopy Cholecystectomy Completed 06/19/2019 32482 EEG Monitoring Computer Completed 03/23/2019 50789 EEG Recording Awake & Drowsy Completed Medical Devices Description No Information Available Encounters Type Date Location Provider Dx Diagnosis Office Visit 07/05/2019 Pulmonology And Thalia Cisneros, G47.33 Obstructive sleep 9:30a [facility] RN, ACCOUNT GENERAL MANAGER-BC apnea (adult) Broker Assistant (pediatric) G47.14 Hypersomnia due to medical condition Office Visit 06/27/2019 10:15a [facility] Дмитрий Rutledge, K80.51 Calculus of bile Assthomas,jamaal TURNER duct w/o Hospitalists cholangitis or cholecyst w obst Z90.49 Acquired absence of other specified parts of digestive tract Office Visit 06/26/2019 10:14a [facility] Дмитрий Rutledge, R10.11 Right upper Assoc,jamaal TURNER quadrant pain Hospitalists G35 Multiple sclerosis F32.9 Major depressive disorder, single episode, unspecified M25.519 Pain in unspecified shoulder Office Visit 06/25/2019 10:14a [facility] Дмитрий Rutledge, R10.11 Right upper Assocjamaal MD quadrant pain Hospitalists G35 Multiple sclerosis F32.9 Major depressive disorder, single episode, unspecified Office Visit 06/24/2019 10:13a [facility] Vitaly R10.11 Right upper Assjamaal guzman PA quadrant pain Hospitalists F32.9 Major depressive disorder, single episode, unspecified Z86.69 Personal history of dis of the nervous sys and sense organs Office Visit 06/23/2019 Neurohospitalist Sreekanth Arcos G35 Multiple 7:00a Cheikh Quinonez M.D. sclerosis Office Visit 06/23/2019 [facility] Vitaly R10.11 Right upper 10:13a Assoc,pc Hospitalists LALI Sue quadrant pain Z86.69 Personal history of dis of the nervous sys and sense organs Office Visit 06/23/2019 Surgical Artur Arcos K80.10 Calculus of 7:00a [facility] Cabrales MD gallbladder w chronic cholecyst w/o obstruction Office Visit 06/22/2019 [facility] Dina R10.11 Right upper 10:12a Assoc,jamaal Valencia NP quadrant pain Hospitalists F32.9 Major depressive disorder, single episode, unspecified E03.9 Hypothyroidism, unspecified G35 Multiple sclerosis Office Visit 06/22/2019 Surgical Artur S. K80.10 Calculus of 7:00a [facility] MD Samra gallbladder w chronic cholecyst w/o obstruction Office Visit 06/21/2019 [facility] Дмитрий Rutledge MD R10.11 Right upper 10:12a Assoc,pc quadrant pain Hospitalists G35 Multiple sclerosis E03.9 Hypothyroidism, unspecified F31.9 Bipolar disorder, unspecified N39.0 Urinary tract infection, site not specified Office Visit 06/07/2019 [facility] Yasmany N39.0 Urinary tract 9:40a Assoc,pc Owen Iqbal infection, site Hospitalists not specified G35 Multiple sclerosis F32.9 Major depressive disorder, single episode, unspecified J45.909 Unspecified asthma, uncomplicated G43.909 Migraine, unsp, not intractable, without status migrainosus G47.33 Obstructive sleep apnea (adult) (pediatric) Office Visit 06/06/2019 9:39a [facility] Vitaly E53.8 Deficiency of Assoc,pc LALI Sue other specified Hospitalists B group vitamins G35 Multiple sclerosis R94.6 Abnormal results of thyroid function studies R56.9 Unspecified convulsions N39.0 Urinary tract infection, site not specified G47.33 Obstructive sleep apnea (adult) (pediatric) Office Visit 06/04/2019 9:39a [facility] Angi Perales, G35 Multiple Assoc,pc N.P. sclerosis Hospitalists N32.81 Overactive bladder E03.9 Hypothyroidism, unspecified G40.909 Epilepsy, unsp, not intractable, without status epilepticus G89.29 Other chronic pain R10.9 Unspecified abdominal pain Office Visit 06/02/2019 1:12p [facility] Kelley High, G35 Multiple Assoc,pc Owen sclerosis Hospitalists R13.10 Dysphagia, unspecified J45.909 Unspecified asthma, uncomplicated Z96.0 Presence of urogenital implants Z51.5 Encounter for palliative care F32.9 Major depressive disorder, single episode, unspecified Office Visit 05/30/2019 1:11p Palliative Care Zahra Garcia, G35 [facility] sclerosis R13.10 Dysphagia, unspecified Office [facility]2019 [facility] G35 Multiple Assoc,pc Owen sclerosis Hospitalists R53.1 Weakness Office Visit 04/07/2019 3:30p [facility] Bello Rick, G35 [facility] N.P. sclerosis J45.909 Unspecified asthma, uncomplicated R41.2 Retrograde amnesia R56.9 Unspecified convulsions R35.0 Frequency of micturition G47.33 Obstructive sleep apnea (adult) (pediatric) Office Visit 04/06/2019 [facility] R19.7 Diarrhea, 12:54p Assoc,jamaal Valencia, BRUSHER WARP unspecified Hospitalists E87.6 Hypokalemia G35 Multiple sclerosis J45.909 Unspecified asthma, uncomplicated F32.9 Major depressive disorder, single episode, unspecified G43.909 Migraine, unsp, not intractable, without status migrainosus R39.81 Functional urinary incontinence G47.33 Obstructive sleep apnea (adult) (pediatric) Office Visit 04/05/2019 [facility] R19.7 Diarrhea, 12:53p Assoc,pc Erik, BRUSHER WARP unspecified Hospitalists N39.0 Urinary tract infection, site not specified G35 Multiple sclerosis M54.9 Dorsalgia, unspecified F31.9 Bipolar disorder, unspecified E03.9 Hypothyroidism, unspecified Office Visit 03/25/2019 10:10a [facility] D[facility]atology Rich Teran, D22.5 Melanocytic nevi of trunk L91.8 Other hypertrophic disorders of the skin L82.1 Other seborrheic keratosis Assessments Date Code Description Provider 08/30/2019 G47.33 Obstructive sleep apnea (adult) Thalia Cisneros DNP, RN, (pediatric) [facility] 07/28/2019 K80.10 Calculus of gallbladder with chronic LALI Louie cholecystitis without obstruction 07/05/2019 G47.33 Obstructive sleep apnea (adult) Thalia Cisneros DNP, RN, (pediatric) [facility] 07/05/2019 G47.14 Hypersomnia due to medical condition Thalia Cisneros DNP , RN, [facility] 06/27/2019 K80.51 Calculus of bile duct without Дмитрий Rutledge MD cholangitis or cholecystitis with obstruction 06/27/2019 K80.10 Calculus of gallbladder with chronic Artur Cabrales MD cholecystitis without obstruction 06/27/2019 Z90.49 Acquired absence of other specified Дмитрий Rutledge MD parts of digestive tract 06/26/2019 R10.11 Right upper quadrant pain Дмитрий Rutledge MD 06/26/2019 R06.02 Shortness of breath Srini Martinez M.D., [facility] 06/26/2019 G35 Multiple sclerosis Дмитрий Rutledge [...] Personal history of other diseases of LALI Sdihu the nervous system and sense organs 06/23/2019 K80.10 Calculus of gallbladder with chronic Artur Cabrales MD cholecystitis without obstruction 06/22/2019 K80.10 Calculus of gallbladder with chronic Artur Cabrales MD cholecystitis without obstruction 06/22/2019 R10.11 Right upper quadrant pain Dina Valencia, BRUSHER WARP 06/22/2019 F32.9 Major depressive disorder, single Dina Valencia, BRUSHER WARP episode, unspecified 06/22/2019 E03.9 Hypothyroidism, unspecified Dina Valencia, BRUSHER WARP 06/22/2019 G35 Multiple sclerosis Dina Valencia, BRUSHER WARP 06/21/2019 R10.11 Right upper quadrant pain Дмитрий [...] Perales, N.P. 06/04/2019 G40.909 Epilepsy, unspecified, not Angilien Perales, N.P. intractable, without status epilepticus 06/04/2019 G89.29 [...] High M.D. 04/07/2019 G35 Multiple sclerosis Bello Rcik, N.P. 04/07/2019 J45.909 Unspecified asthma, uncomplicated Bello Rick, N.P. 04/07/2019 R41.2 Retrograde amnesia Bello Rick, N.P. 04/07/2019 R56.9 Unspecified convulsions Bello Rick, N.P. 04/07/2019 R35.0 Frequency of micturition Bello Rick, N.P. 04/07/2019 G47.33 Obstructive sleep apnea (adult) Bello Rick, N.P. (pediatric) 04/06/2019 R19.7 Diarrhea, unspecified Dina Zelienople, BRUSHER WARP 04/06/2019 E87.6 Hypokalemia Dina Erik, BRUSHER WARP 04/06/2019 G35 Multiple sclerosis Dina Zelienople, BRUSHER WARP 04/06/2019 J45.909 Unspecified asthma, uncomplicated Dina Erik, BRUSHER WARP 04/06/2019 F32.9 Major depressive disorder, single Dina Erik, BRUSHER WARP episode, unspecified 04/06/2019 G43.909 Migraine, unspecified, not Dina Erik, BRUSHER WARP intractable, without status migrainosus 04/06/2019 R39.81 Functional urinary incontinence Dina Erik, BRUSHER WARP 04/06/2019 G47.33 Obstructive sleep apnea (adult) Dina Zelienople, BRUSHER WARP (pediatric) 04/05/2019 R19.7 Diarrhea, unspecified Dina Zelienople, BRUSHER WARP 04/05/2019 N39.0 Urinary tract infection, site not Dina Erik, BRUSHER WARP specified 04/05/2019 G35 Multiple sclerosis Dina Zelienople, BRUSHER WARP 04/05/2019 M54.9 Dorsalgia, unspecified Dina Zelienople, BRUSHER WARP 04/05/2019 F31.9 Bipolar disorder, unspecified Dina Zelienople, BRUSHER WARP 04/05/2019 E03.9 Hypothyroidism, unspecified Dina Zelienople, BRUSHER WARP 03/25/2019 D22.5 Melanocytic nevi of trunk Rich Teran MD 03/25/2019 L91.8 Other hypertrophic disorders of the Rich Teran MD skin 03/25/2019 L82.1 Other seborrheic keratosis Rich Teran MD 03/23/2019 R56.9 Unspecified convulsions Breann Gonzalez MD Plan of Treatment Future Appointment(s):09/13/2019 12:15 pm - Tim Lara M.D. at [facility]08/30/2019 - Thalia Cisneros DNP, RN, ACCOUNT GENERAL MANAGER-BCG47.33 Obstructive sleep apnea (adult) (pediatric)New Orders:Sleep Study Cpap, Ordered : 08/30/19Comments:NPSG Mild obstructive sleep apnea noted on recent sl study- AHI- 8.5, O2 ibeth 89%, worse in REM sleepFollow up:2 monthsRecommendations: Resume PAP device Will request change to CPAP auto 7-10 cm, due to problems and excessive [...] or need to replace your mask or hoses,please contact your homecare agency. A weight change of 20 pounds or more may have an effect on yourequipment ; if you are experiencing problems please call for an appointment. If you have any furtherquestions, please call the [facility] at [phone]. Functional Status Description No Information Available Mental Status Description No Information Available Referrals Refer to Dr Reason for Referral Status Appt Date Torin Tapia MD Eye Exam before starting Gilenya medication for Created [place] [address] [place] [address] [phone] Jennifer Soto MD f/u regarding broken cpap equipment-established Sent patient [address] [place] [address] [phone]
[2019-10-11 01:07] LABS: INR 0.98 (0.82-1.09)
[2019-10-11 01:11] LABS: Calcium 9.7 mg/dL (8.6-10.3); Magnesium 1.9 mg/dL (1.9-2.7); Potassium 3.8 mmol/L (3.5-5.0); Total Bilirubin 0.2 mg/dL (0.2-1.0)
[2019-10-11 01:17] LABS: Albumin/Globulin Ratio 1.7 (1-3); C Reactive Protein 2.01 mg/L (<8.01); EGFR African American 80.2 (>60); EGFR Non-African American 66.3 (>60); Globulin 2.4 g/dL (2-4); Total Protein 6.4 g/dL (6.4-8.9)
--- NOTE | 2019-10-11 01:41 | ED ---
Complex/Multi-Sys Presentation - HPI Summary HPI Summary: Patient is a 49 y/o F w/ Hx of MS who presents to [facility] with complaints of BLE and buttocks numbness as well as difficulty controlling her urination. Patient states that she was put into bed by senior living staff at around 1900 10/10/19. 15 minutes later, patient experienced onset of numbness to her legs; this numbness then spread to her buttock. Sx are still present. She subsequently experienced difficulty controlling her urination. she states she normally has warning 1-2 minutes before she has to urinate. she wears depends. Lower back pain is noted, but this is characterized as chronic. She also reports that she has been having around 2-3 episodes of diarrhea daily for the past 1.5 months. no bm since onset of these symptoms. No fever noted. Patient denies previous similar episodes of Sx. She states that she does experience MS flare-ups but states that they have typically only lasted around 1 hour each. No recent changes to medications noted. Allergy to penicillin and sulfa noted. She is a non-smoker and denies alcohol and substance usage. PSHx of gallbladder surgery noted. FMHx of diabetes reported. Home medications and allergies are reviewed. - History Of Current Complaint Chief Complaint: EDExtremityLower Time Seen by Provider: 10/10/19 23:56 Hx Obtained From: Patient Onset/Duration: Lasting Hours, Still Present Timing: Hours Location: Pain At: - lower back, chronic Associated Signs And Symptoms: Positive: Diarrhea, Back Pain - chronic, Other - numbness. Negative: Fever - Allergies/Home Medications Allergies/Adverse Reactions: Allergies Allergy/AdvReac Type Severity Reaction Status Date / Time bee venom protein (honey bee) Allergy Severe See Comment Verified 10/10/19 23:54 onion Allergy Severe See Comment Verified 10/10/19 23:54 Sulfa (Sulfonamide Allergy Severe Unknown Verified 10/10/19 23:54 Antibiotics) Reaction Details aspirin Allergy Intermediate Nausea Verified 10/10/19 23:54 Penicillins Allergy Intermediate See Comment Verified 10/10/19 23:54 Wiley And Derivatives Allergy Unknown See Comment Verified 10/10/19 23:54 erythromycin base Allergy Unknown Verified 10/10/19 23:54 Reaction Details Home Medications: Home Medications Vilazodone (NF) [Viibryd (NF)] 40 mg PO DAILY 09/11/17 [History Confirmed ] Brexpiprazole (Nf) [Rexulti] 1 mg PO DAILY 06/27/18 [History Confirmed 08/07/19] Diazepam TAB(*) [Valium TAB(*)] 5 mg PO BID PRN 04/04/19 [History Confirmed ] Morphine TAB Extended Rel(*) [Ms Contin(*)] 15 mg PO QAM PRN 04/04/19 [History Confirmed 08/07/19] Ondansetron TAB* [Zofran 4 MG Tab*] 4 mg PO Q6H PRN 04/04/19 [History Confirmed 08/07/19] Oxycodone TAB(NF) [Oxycodone HCl 10 MG] 20 mg PO Q8H PRN 04/04/19 [History Confirmed 08/07/19] [place] Carbonate ER (NF) 900 mg PO BEDTIME 04/05/19 [History Confirmed 08/07/19 ] Diphenoxylate HCl/Atropine [Lomotil 2.5-0.025 mg Tablet] 1 tab PO QID PRN [History Confirmed 08/07/19] Baclofen TAB* [Lioresal TAB*] 40 mg PO BID 05/28/19 [History Confirmed 08/07/19 ] Acetaminophen TAB* [Tylenol TAB*] 650 mg PO Q6H PRN tab 06/07/19 [Rx Confirmed 08/07/19] Cyanocobalamin TAB* [Vitamin B12 TAB*] 1,000 mcg PO DAILY tab 06/07/19 [Rx Confirmed 08/07/19] Docusate CAP* [Colace Cap*] 100 mg PO DAILY PRN cap 06/07/19 [Rx Confirmed ] Levothyroxine TAB* [Synthroid 88 MCG TAB*] 88 mcg PO 0600 tab 06/07/19 [Rx Confirmed 08/07/19] Polyethylene Glycol 3350* [Miralax (17 GM DOSE HEATHER)] 17 gm PO DAILY PRN packet 06/07/19 [Rx Confirmed 08/07/19] Amantadine CAP* [Symmetrel CAP*] 100 mg PO BID 06/21/19 [History Confirmed 08/07] Magnesium Hydroxide LIQ* [Milk of Magnesia LIQ*] 60 ml PO DAILY PRN 06/21/19 [ History Confirmed 08/07/19] Mirabegron (NF) [Myrbetriq (NF)] 50 mg PO DAILY 06/21/19 [History Confirmed ] Omeprazole CAP (NF) [Prilosec CAP* 20 MG] 20 mg PO DAILY 06/21/19 [History Confirmed 08/07/19] Pregabalin 25 mg CAP (*) [Lyrica 25 mg CAP (*)] 25 mg PO BEDTIME 06/21/19 [ History Confirmed 08/07/19] Senna TAB 8.6 mg* [Senokot 8.6 mg TAB*] 2 tab PO BEDTIME PRN 06/21/19 [History Confirmed 08/07/19] carBAMazepine TAB(*) [Tegretol TAB(*)] 200 mg PO BID #60 tab 06/27/19 [Rx Confirmed 08/07/19] PMH/Surg Hx/FS Hx/Imm Hx Endocrine/Hematology History: Reports: Hx Thyroid Disease Denies: Hx Diabetes, Hx Anemia, Hx Unexplained Bleeding, Other Endocrine/ Hematological Disorders Cardiovascular History: Denies: Hx Aneurysm, Hx Angina, Hx Angioplasty, Hx Auto Implanted Cardiovert Defib, Hx Cardiac Arrest, Hx Cardiomegaly, Hx Congenital Heart Disease, Hx Congestive Heart Failure, Hx Coronary Artery Disease, Hx Deep Vein Thrombosis, Hx Embolism, Hx Hypercholesterolemia, Hx Hypotension, Hx Hypertension, Hx Pacemaker/ICD, Hx Peripheral Vascular Disease, Hx Rheumatic Fever, Hx Syncope, Hx Valvular Heart Disease, Other Cardiovascular Problems/Disorders Respiratory History: Reports: Hx Asthma - as a child, Hx Pulmonary Embolism, Hx Sleep Apnea Denies: Hx Chronic Bronchitis, Hx Chronic Obstructive Pulmonary Disease (COPD ), Hx Cystic Fibrosis, Hx Lung Cancer, Hx Pleural Effusion, Hx Pneumonia, Hx Pulmonary Edema, Hx Seasonal Allergies, Other Respiratory Problems/Disorders GI History: Reports: Hx Gastroesophageal Reflux Disease, Hx Ulcer Denies: Hx Gastrointestinal Bleed, Hx Hiatal Hernia History: Reports: Other Problems/Disorders - urinary incontinence Denies: Hx Dialysis, Hx Kidney Stones, Hx Renal Disease Musculoskeletal History: Reports: Hx Arthritis - knees, right hand, Hx Back Problems, Other Musculoskeletal History - MS Denies: Hx Bursitis, Hx Congenital Bone Abnormalities, Hx Fibromyalgia, Hx Gout, Hx Orthopedic Injury, Hx Osteoporosis, Hx Scoliosis, Hx Tendonitis Sensory History: Reports: Hx Contacts or Glasses, Other Sensory Impairments - Numbness in feet Denies: Hx Cataracts, Hx Eye Injury, Hx Eye Prosthesis, Hx Glaucoma, Hx Legally Blind, Hx Macular Degeneration, Hx Vision Problem, Hx Deafness, Hx Hearing Aid, Hx Hearing Problem Opthamlomology History: Reports: Hx Contacts or Glasses, Other Sensory Impairments - Numbness in feet Denies: Hx Cataracts, Hx Eye Injury, Hx Eye Prosthesis, Hx Glaucoma, Hx Legally Blind, Hx Macular Degeneration, Hx Vision Problem Neurological History: Reports: Hx Headaches, Hx Migraine, Hx Nerve Disease, Hx Seizures, Other Neuro Impairments/Disorders - MS Denies: Hx Dementia, Hx Developmental Delay, Hx Spinal Cord Injury, Hx Transient Ischemic Attacks (TIA) Psychiatric History: Reports: Hx Anxiety, Hx Depression, Hx Suicide Attempt, Hx Substance Abuse Denies: Hx Attention Deficit Hyperactivity Disorder, Hx Eating Disorder, Hx Panic Disorder, Hx Post Traumatic Stress Disorder, Hx Inpatient Treatment, Hx Community Mental Health Tx, Hx Schizophrenia, Hx Bipolar Disorder, Hx of Violent Episodes Against Others, Other Psychiatric Issues/Disorders - Cancer History Hx Chemotherapy: Yes - For MS Hx Radiation Therapy: No - Surgical History Surgery Procedure, Year, and Place: BREAST REDUCTION 2005, oral surgeries Hx Anesthesia Reactions: No - Immunization History Date of Tetanus Vaccine: Unknown Date of Influenza Vaccine: Unk re: Fall 2014 Infectious Disease History: No Infectious Disease History: Denies: Hx Clostridium Difficile, Hx Hepatitis, Hx Human Immunodeficiency Virus (HIV), Hx of Known/Suspected MRSA, Hx Shingles, Hx Tuberculosis, Hx Known/ Suspected VRE, Hx Known/Suspected VRSA, History Other Infectious Disease, Traveled Outside the [place] in Last 30 Days - Family History Known Family History: Positive: Cardiac Disease - Father, Diabetes Family History: FHx of spina bifida - Social History Alcohol Use: None 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 Hx Substance Use: No Substance Use Type: Reports: None Hx Tobacco Use: Yes Smoking Status (MU): Former Smoker Type: Cigarettes Amount Used/How Often: 2 cigaretts/week Length of Time of Smoking/Using Tobacco: 2 months Have You Smoked in the Last Year: No - Additional Comments History Additional Comments: PMHx of MS PSHx of gallbladder surgery FMHx of diabetes SHx of smoking, alcohol, and substance usage denied Review of Systems - ROS Summary Review of Systems Summary: Home Medications Medication Instructions Recorded Confirmed Type Vilazodone (NF) [Viibryd (NF)] 40 mg PO DAILY 09/11/17 08/07/19 History Brexpiprazole (Nf) [Rexulti] 1 mg PO DAILY 06/27/18 08/07/19 History Diazepam TAB(*) [Valium TAB(*)] 5 mg PO BID PRN 04/04/19 08/07/19 History Morphine TAB Extended Rel(*) [Ms 15 mg PO QAM PRN 04/04/19 08/07/19 History Contin(*)] Ondansetron TAB* [Zofran 4 MG Tab*] 4 mg PO Q6H PRN 04/04/19 08/07/19 History Oxycodone TAB(NF) [Oxycodone HCl 20 mg PO Q8H PRN 04/04/19 08/07/19 History 10 MG] [place] Carbonate ER (NF) 900 mg PO BEDTIME 04/05/19 08/07/19 History Diphenoxylate HCl/Atropine 1 tab PO QID PRN 05/25/19 08/07/19 History [Lomotil 2.5-0.025 mg Tablet] Baclofen TAB* [Lioresal TAB*] 40 mg PO BID 05/28/19 08/07/19 History Acetaminophen TAB* [Tylenol TAB*] 650 mg PO Q6H PRN tab 06/07/19 08/07/19 Rx Cyanocobalamin TAB* [Vitamin B12 1,000 mcg PO DAILY tab 06/07/19 08/07/19 Rx TAB*] Docusate CAP* [Colace Cap*] 100 mg PO DAILY PRN cap 06/07/19 08/07/19 Rx Levothyroxine TAB* [Synthroid 88 88 mcg PO 0600 tab 06/07/19 08/07/19 Rx MCG TAB*] Polyethylene Glycol 3350* [Miralax 17 gm PO DAILY PRN packet 06/07/19 08/07/19 Rx (17 GM DOSE HEATHER)] Amantadine CAP* [Symmetrel CAP*] 100 mg PO BID 06/21/19 08/07/19 History Magnesium Hydroxide LIQ* [Milk of 60 ml PO DAILY PRN 06/21/19 08/07/19 History Magnesia LIQ*] Mirabegron (NF) [Myrbetriq (NF)] 50 mg PO DAILY 06/21/19 08/07/19 History Omeprazole CAP (NF) [Prilosec CAP* 20 mg PO DAILY 06/21/19 08/07/19 History 20 MG] Pregabalin 25 mg CAP (*) [Lyrica 25 mg PO BEDTIME 06/21/19 08/07/19 History 25 mg CAP (*)] Senna TAB 8.6 mg* [Senokot 8.6 mg 2 tab PO BEDTIME PRN 06/21/19 08/07/19 History TAB*] carBAMazepine TAB(*) [Tegretol 200 mg PO BID #60 tab 06/27/19 08/07/19 Rx TAB(*)] Negative: Fever Positive: Diarrhea Genitourinary: Other - positive - difficulty controlling urination Musculoskeletal: Other - chronic lower back pain Positive: Numbness All Other Systems Reviewed And Are Negative: Yes Physical Exam - Summary Physical Exam Summary: General: Well-developed, Obese female. No acute distress. HEENT: Normocephalic, Atraumatic. Eyes: Conjuctiva normal, PERRL. Oropharynx: Clear, mucous membranes moist, (-) exudates. Neck: Soft, FROM, (-) lymphadenopathy, (-) thyromegaly, (-) JVD. Cardiovascular: Normal sinus rhythm, (-) murmur. Lungs: Clear to auscultation bilaterally (-) wheezes, (-) rales, (-) rhonchi. Abdomen: Soft, non-tender, non-distended, (-) organomegaly, normal bowel sounds. Back: (-) CVA tenderness; pain to back when palpating L1 and down Extremities: No edema. Skin: Warm, dry, (-) rash. Neuro: Alert and oriented x3, moves all extremities equally. No ataxia. No gait disturbance. Decreased sensation to the BLE but normal strength and sensation to BUE, GCS 15. Psychiatric: Flat affect Triage Information Reviewed: Yes Vital Signs On Initial Exam: Initial Vitals Temp Pulse Resp BP Pulse Ox 97.4 F 74 19 114/65 99 10/10/19 23:51 10/10/19 23:51 10/10/19 23:51 10/10/19 23:51 10/10/19 23:51 Vital Signs Reviewed: Yes Procedures - Sedation Patient Received Moderate/Deep Sedation with Procedure: No Diagnostics - Vital Signs Vital Signs Temp Pulse Resp BP Pulse Ox 10/10/19 23:51 97.4 F 74 19 114/65 99 - Laboratory Lab Results: Lab Results 10/11/19 10/11/19 10/11/19 Range/Units 00:47 00:47 00:47 WBC 4.2 (3.5-10.8) 10^3/uL RBC 4.27 (3.70-4.87) 10^6 /uL Hgb 13.1 (12.0-16.0) g/dL Hct 39 (35-47) % MCV 92 (80-97) fL MCH 31 (27-31) pg MCHC 34 (31-36) g/dL RDW 14 (10-15) % Plt Count 261 (150-450) 10^3/uL MPV 8.0 (7.4-10.4) fL Neut % (Auto) 59.8 % Lymph % (Auto) 27.8 % Graham % (Auto) 11.3 % Eos % (Auto) 0.0 % Baso % (Auto) 1.1 % Absolute Neuts (auto) 2.5 (1.5-7.7) 10^3/ul Absolute Lymphs (auto) 1.2 (1.0-4.8) 10^3/ul Absolute Monos (auto) 0.5 (0-0.8) 10^3/ul Absolute Eos (auto) 0.0 (0-0.6) 10^3/ul Absolute Basos (auto) 0.0 (0-0.2) 10^3/ul Absolute Nucleated RBC 0.0 10^3/ul Nucleated RBC % 0.1 INR (Anticoag Therapy) (0.82-1.09) Sodium 138 (135-145) mmol/L Potassium 3.8 (3.5-5.0) mmol/L Chloride 103 (101-111) mmol/L Carbon Dioxide 30 (22-32) mmol/L Anion Gap 5 (2-11) mmol/L BUN 9 (6-24) mg/dL Creatinine 0.90 (0.51-0.95) mg/dL Est GFR ( Amer) 80.2 (>60) Est GFR (Non-Af Amer) 66.3 (>60) BUN/Creatinine Ratio 10.0 (8-20) Glucose 105 H (70-100) mg/dL Lactic Acid 1.8 (0.5-2.0) mmol/L Calcium 9.7 (8.6-10.3) mg/dL Magnesium 1.9 (1.9-2.7) mg/dL Total Bilirubin 0.20 (0.2-1.0) mg/dL AST 16 (13-39) U/L ALT 24 (7-52) U/L Alkaline Phosphatase 225 H (34-104) U/L Troponin I Pending C-Reactive Protein 2.01 (<8.01) mg/L Total Protein 6.4 (6.4-8.9) g/dL Albumin 4.0 (3.2-5.2) g/dL Globulin 2.4 (2-4) g/dL Albumin/Globulin Ratio 1.7 (1-3) TSH Pending 10/11/19 Range/Units 00:47 WBC (3.5-10.8) 10^3/uL RBC (3.70-4.87) 10^6 /uL Hgb (12.0-16.0) g/dL Hct (35-47) % MCV (80-97) fL MCH (27-31) pg MCHC (31-36) g/dL RDW (10-15) % Plt Count (150-450) 10^3/uL MPV (7.4-10.4) fL Neut % (Auto) % Lymph % (Auto) % Graham % (Auto) % Eos % (Auto) % Baso % (Auto) % Absolute Neuts (auto) (1.5-7.7) 10^3/ul Absolute Lymphs (auto) (1.0-4.8) 10^3/ul Absolute Monos (auto) (0-0.8) 10^3/ul Absolute Eos (auto) (0-0.6) 10^3/ul Absolute Basos (auto) (0-0.2) 10^3/ul Absolute Nucleated RBC 10^3/ul Nucleated RBC % INR (Anticoag Therapy) 0.98 (0.82-1.09) Sodium (135-145) mmol/L Potassium (3.5-5.0) mmol/L Chloride (101-111) mmol/L Carbon Dioxide (22-32) mmol/L Anion Gap (2-11) mmol/L BUN (6-24) mg/dL Creatinine (0.51-0.95) mg/dL Est GFR ( Amer) (>60) Est GFR (Non-Af Amer) (>60) BUN/Creatinine Ratio (8-20) Glucose (70-100) mg/dL Lactic Acid (0.5-2.0) mmol/L Calcium (8.6-10.3) mg/dL Magnesium (1.9-2.7) mg/dL Total Bilirubin (0.2-1.0) mg/dL AST (13-39) U/L ALT (7-52) U/L Alkaline Phosphatase (34-104) U/L Troponin I C-Reactive Protein (<8.01) mg/L Total Protein (6.4-8.9) g/dL Albumin (3.2-5.2) g/dL Globulin (2-4) g/dL Albumin/Globulin Ratio (1-3) TSH Result Diagrams: 10/11/19 00:47 10/11/19 00:47 Lab Statement: Any lab studies that have been ordered have been reviewed, and results considered in the medical decision making process. - CT BRAIN CT CT Interpretation Completed By: Radiologist Summary of CT Findings: BRAIN CT IMPRESSION: 1. There has been no change since 06/04/2019. No acute interval intracranial. process is identified. 2. Moderate patchy low attenuation of deep white matter and minimal atrophy. THIS REPORT WAS REVIEWED BY ED PHYSICIAN. THORACIC SPINE CT CT Interpretation Completed By: Radiologist Summary of CT Findings: THORACIC SPINE CT IMPRESSION: No acute thoracic spine fracture or dislocation. THIS REPORT WAS REVIEWED BY ED PHYSICIAN. LUMBAR SPINE CT CT Interpretation Completed By: Radiologist Summary of CT Findings: LUMBAR SPINE CT IMPRESSION: Negative CT lumbar spine. No spinal or foraminal stenosis. THIS REPORT WAS REVIEWED BY ED PHYSICIAN. Complex Multi-Symp Course/Dx Course Of Treatment: 49-year-old female presents with numbness of her lower extremities bilaterally. She states it started about 7:15 tonight. She knows that because it was soon after she was put to bed at the senior living which is about 7 PM. she does have known MS. patient wears a depends. Cannot control her urine. But she states since this started she has had even lost control. Symptoms are equal bilaterally and go up into her buttocks. She has chronic low back pain according to her. Denies any fevers, cough, chest pain or shortness of breath. Has not had any vomiting. No medication change. She states she's had diarrhea for 6 weeks. She doesn't think people believe her but she states her bowels have been different. She is having up to 2-3 bowel movements a day which are diarrhea. Patient's is in no apparent distress upon arrival. Normal vital signs. Her lower extremities have decreased sensation bilaterally. Good pulses and capillary refill. On workup patient has normal vital signs. Normal white count. No change in CT of brain. Patient also has a CT of thoracic and lumbar spine which are negative for abscess. Patient is a vague historian. Difficult to assess how many of her symptoms are completely new versus worsening on the spectrum of symptoms. Patient is referred to hospitalist for admission at this time. - Diagnoses Provider Diagnoses: Multiple sclerosis, Numbness and tingling of both legs - Physician Notifications Discussed Care Of Patient With: Fabian Whyte Time Discussed With Above Provider: 03:51 Instructed by Provider To: Other - Patient's case was discussed with Dr. Whyte , Dr. Whyte accepts for admission, admit orders placed at this time. - Critical Care Time Critical Care Statement: Critical care time is provided exclusive of any time spent performing procedures. Discharge ED - Sign-Out/Discharge Documenting (check all that apply): Patient Departure - admit - Discharge Plan Condition: Stable Disposition: ADMITTED TO [facility] - Billing Disposition and Condition Condition: STABLE Disposition: Admitted to [facility] - Attestation Statements Document Initiated by Nixonibe: Yes Documenting Scribe: JELANI KAMINSKI Provider For Whom Polly is Documenting (Include Credential): SALMA STONE MD Scribe Attestation: I, JELANI KAMINSKI, scribed for SALMA STONE MD on 10/11/19 at 0649. Scribe Documentation Reviewed: Yes Provider Attestation: The documentation as recorded by the JELANI mark accurately reflects the service I personally performed and the decisions made by me, SALMA STONE MD Status of Scribe Document: Viewed
[2019-10-11 01:44] LABS: TSH (Thyroid Stimulating Horm) 2.29 mcIU/mL (0.34-5.60)
[2019-10-11] MEDS ORDERED: Iohexol 300* (CONTRAST) 10 ML SDV IV ONE (02:32)
[2019-10-11] MEDS ORDERED: Ondansetron INJ* 2 MG/ML VIAL IV PRN (03:51)
[2019-10-11] MEDS ORDERED: Acetaminophen TAB* 325 MG PO PRN (03:51)
[2019-10-11] MEDS ORDERED: Albuterol/Ipratropium NEB.SOL* (2.5/0.5 MG) 3 ML NEB.SOLN INH PRN (03:51)
[2019-10-11] MEDS ORDERED: oxyCODONE TAB* 5 MG TAB PO PRN (03:54)
[2019-10-11] MEDS ORDERED: Diphenoxylat/Atrop 2.5-0.025M* 1 TAB PO PRN (03:54)
[2019-10-11] MEDS ORDERED: Enoxaparin(*) 40 MG/0.4 ML SYR SUBCUT SCH (06:00)
[2019-10-11] MEDS ORDERED: Levothyroxine TAB* 100 MCG TAB PO SCH (06:00)
--- NOTE | 2019-10-11 06:18 | HP ---
CC: Dr. Chandler; Dr. Lara* ADMISSION HISTORY AND PHYSICAL: DATE OF ADMISSION: 10/11/19 PRIMARY CARE PROVIDER: Dr. Chandler. NEUROLOGIST: Dr. Lara. HEALTHCARE PROXY: Her ex-, Humera. CODE STATUS: DNR/DNI. MOLST on record of [facility]. SOURCE OF INFORMATION: History obtained from interview with the patient, reliability is poor, as well as review of past medical records from [facility] as well as [facility] whose reliability is excellent. CHIEF COMPLAINT: "Couldn't feel my legs." HISTORY OF PRESENT ILLNESS: This is a 49-year-old female with past medical history of secondarily progressive MS, not on preventative medicines, seizure disorder, cognitive impairment secondary to MS, bipolar disorder, primarily wheelchair bound. She reports she has been in her usual state of health. [facility] records indicate a day of diarrhea in August. She felt a little bit more fatigued today and got in bed around 7:15, then notes she "could not feel and move legs." She felt like her legs were weaker throughout the day, and when she was in bed she "noticed it," but does not know if the onset was sudden or had been more gradual throughout the day in reference to the development of her weakness. She indicates that it was affecting both sides. Since that time she has developed a burning in both of her legs. She had no other associated signs or symptoms. She denies any recent fevers, but indicates she had had an episode of "shaking," and she has had diarrhea for "at least a month," although review of [facility] records indicate she had also reported diarrhea for 31 days but there had been no record to corroborate this at that time either, and her senna, Colace, and MiraLAX have since then been discontinued. She denies any cough, shortness of breath, chest pain, headache, or recent seizures. PAST MEDICAL HISTORY: Secondary progressive multiple sclerosis, previously on multiple preventative medications, not on any currently; migraine; optic neuritis; seizure disorder; cognitive impairment secondary to MS.; depression; generalized anxiety disorder; obstructive sleep apnea; polyneuropathy; myositis ; asthma; bipolar disorder; IBS; GERD; urinary incontinence; osteoarthritis of the knees and hands; hypothyroidism; left femoral DVT; history of breast reduction in 2005; and cholecystectomy. HOME MEDICATIONS: From [facility] include: 1. Carbamazepine ER 200 mg twice daily. 2. [place] 900 mg daily. 3. Lyrica 25 mg at bedtime. 4. Vimpat 30 mg twice daily and oral solution. 5. Levothyroxine 100 mcg daily. 6. Amantadine 100 mg twice daily. 7. Baclofen 40 mg twice daily. 8. Rexulti 1 mg daily. 9. Acetaminophen 1000 mg 3 times a day as needed. 10. Lomotil 1 tab 4 times a day as needed for diarrhea. 11. Fiber-Lax 1 tablet daily. 12. Viibryd 40 mg daily. 13. Oxycodone 20 mg every 8 hours as needed for pain. 14. Omeprazole 20 mg daily. 15. Zofran 4 mg every 12 hours as needed. 16. Oxybutynin ER 15 mg daily. 17. ProAir p.r.n. ALLERGIES: Include BEE VENOM, ONION, SULFA, ASPIRIN, PENICILLIN, CITRUS AND DERIVATIVES, and ERYTHROMYCIN BASE. FAMILY HISTORY: Includes asthma and CAD in her father's side. SOCIAL HISTORY: Previous heavy alcohol use, quit over 20 years ago, no tobacco , resident at [facility]. REVIEW OF SYSTEMS: As per HPI, otherwise negative. PHYSICAL EXAMINATION GENERAL: Sleepy, easy to wake to name. VITALS SIGNS: In the emergency room, 120/67, heart rate 78, respiratory rate is 19, 100% on room air, T-max 97.4. HEENT: Oropharynx clear. Has moist mucous membranes. Sclerae are anicteric. LUNGS: Clear. HEART: Regular rate and rhythm. No murmurs, rubs, or gallops. ABDOMEN: Soft, nontender. EXTREMITIES: Warm, well perfused. No clubbing, cyanosis, or edema. She has incomplete adduction with the right eye, with internuclear ophthalmoplegia (CYNDY) . Both bilateral lower extremities have incomplete sensation to sharp touch. Right leg up to the mid thigh, left leg to above her left hip, bilateral arms also have decreased sensation to sharp touch, although she develops sensation and loses again from her wrist to her elbow. She is unable to move bilateral feet or legs; however, does withdraw to pain in bilateral feet with sharp and strong motion upwards. NEURO: She is alert and oriented x3. Cranial nerves as described above with eye movements. Otherwise face is symmetric. She was not ambulated. LABORATORY DATA: Labs are reviewed. White blood cell count is 4.2, hemoglobin 13.1, platelets 261. BUN 9, creatinine 0.9, lactic acid 1.8, TSH is 2.29. UA is pending, and I have added on a lithium level which is also pending. DATA REVIEWED: CT of her lumbar and thoracic spines are normal without abnormalities. CT of the brain, no interval change since May 2019. No acute interval intracranial process is identified, although there is moderate patchy low attenuation of deep white matter and minimal atrophy. ASSESSMENT AND PLAN: This is a 49-year-old female with past medical history of secondary progressive multiple sclerosis associated with optic neuritis, seizure disorder, cognitive impairment, depression, generalized anxiety disorder amongst other disabilities presenting with inability to move her lower extremities. 1. Bilateral lower extremity paralysis. The patient could not move her legs volitionally. She was able to move them with some force and with response to pain. I think this is a difficult exam including sensation, in which she had markedly decreased sensation. I have no prior for comparison, although I note Dr. Lara has been her primary neurologist and he is cfo controller and may be able to see the patient for a consultation tomorrow. I am not going to place an additional MRI of her spine at this point until further investigation. I do think that exam is complicated by her cognitive impairment indicated by previous reports of daily diarrhea for a month in the senior living and was not corroborated by nursing reports, and now paralysis which she can overcome to pain. We will further investigate with lithium levels as well as urinalysis for underlying subacute infection, but we will not treat with antibiotics. Of note, the patient has a do not hospitalize order which I discussed with the patient. Her goals at this hospital stay would be to elucidate the underlying etiology for her current weakness. She indicates she would not want to be hospitalized for things like an infection. The patient had previously been on hospice beginning 2019. She indicates she is no longer part of the hospice program. 2. Home medications remain unchanged including that for thyroid disorder, depression, generalized anxiety disorder, urinary incontinence, seizure disorder , asthma. 3. DVT prophylaxis: Lovenox daily. [id number]/[facility] #: [id number] MTDD
[2019-10-11 08:12] LABS: Urine Appearance Clear; Urine Bilirubin Negative (Negative); Urine Blood 1+ (Negative); Urine Color Straw; Urine Glucose Negative (Negative); Urine Ketones Negative (Negative); Urine Nitrite Negative (Negative); Urine Protein Negative (Negative); Urine Specific Gravity 1.015 (1.010-1.030); Urine Urobilinogen Negative (Negative)
[2019-10-11 08:24] LABS: Urine Benzodiazepine Screen None Detected (None Detect); Urine Opiates Screen None Detected (None Detect)
[2019-10-11 08:29] LABS: Urine Bacteria Absent (Absent); Urine Red Blood Cell Trace(0-2/hpf) (Absent); Urine Squamous Epithelial Cell Present (Absent); Urine White Blood Cell Trace(0-5/hpf) (Absent)
[2019-10-11] MEDS ORDERED: methylPREDNISolone SOD SUCC* 500 MG in NS 0.9% 100 ML* 100 ML IVPB ONE (08:30)
[2019-10-11] MEDS ORDERED: Amantadine CAP* 100 MG PO SCH (09:00)
[2019-10-11] MEDS ORDERED: LaCOSAMide ORAL LIQ 10 MG/ML PO SCH (09:00)
[2019-10-11] MEDS ORDERED: busPIRone TAB* 5 MG PO SCH (09:00)
[2019-10-11] MEDS ORDERED: CMCS:Vilazodone (NF) 40 MG TAB PO SCH (09:00)
[2019-10-11] MEDS ORDERED: Baclofen TAB* 20 MG PO SCH (09:00)
[2019-10-11] MEDS ORDERED: BREXPIPRAZOLE 1 MG PO SCH (09:00)
[2019-10-11] MEDS ORDERED: carBAMazepine TAB(*) 200 MG PO SCH (09:00)
[2019-10-11] MEDS ORDERED: Oxybutynin XL TAB* 5 MG PO SCH (09:00)
[2019-10-11] MEDS ORDERED: Pantoprazole TAB * 40 MG TAB PO SCH (09:00)
[2019-10-11 11:25] VITALS: BP 127/68
--- NOTE | 2019-10-11 11:54 | CONS ---
CC: Dr. Chiki Chandler; Dr. Tim Lara CONSULTATION REPORT: DATE OF CONSULT: 10/11/19 PRIMARY CARE PHYSICIAN: Dr. Chiki Chandler. HEALTHCARE PROXY: Ex-, Qasim. REASON FOR CONSULTATION: "Could not feel my legs and could not move my legs." HISTORY OF PRESENT ILLNESS: She is in general a poor historian, but I was able to to get some history. I know the patient very well and follow her in my clinic. She is also seen by the [facility]. Ms. Cisneros is a 49-year -old female with a history of secondary progressive MS, who is currently not on any medication. She follows with the [facility]. She had an appointment in August, but it was canceled because of the COVID pandemic. At the last visit, they were trying to get her started on Gilenya, but unfortunately the patient does not want to start the medication because she is afraid of the side effects. In addition, she was to be seen by Neuroophthalmology at some point, but I do not think that that has happened. In any event, she does not want to start the Gilenya at this time. So, currently she is not receiving any treatment for her MS. She also has a history of seizure disorder with no recent seizures on medication. She has a history of bipolar disorder and some cognitive issues as well. She has a history of neuropathy in her legs and she is normally not able to walk. She is , however, able to transfer, but normally, she cannot move her legs. She told me that 2 weeks ago, she started having trouble with her right leg movement and then 2 nights ago, started having trouble with her left leg movement to the point now where she states she cannot move her legs at all. She has chronic loss of sensation to all modalities in the feet and legs as well as the hands, which progressively improve as you move up the leg towards the waist and the torso. She states that she has not had any recent fevers, chills, nausea, vomiting, diarrhea, or constipation. She has had some sweats at times, mild cough, but has otherwise been in her usual state of care. She currently lives at [facility] [place]. She did report a history to the admitting physician that she has had diarrhea for some time, although there was some question about [facility] [place] records indicating that. Dr. Whyte noted that her Senna, Colace, and MiraLAX have been discontinued. She has had no involvement of her arms that she is aware of. She has no problems speaking or swallowing at this time. She is normally bedbound. She does have chronic back pain. She has had no acute vision loss in 1 eye, no eye pain. She was brought to the hospital because she was concerned about the inability to move her legs. PAST MEDICAL HISTORY: As noted above. In addition: 1. Hypersomnia. 2. Obstructive sleep apnea. 3. Urinary frequency with some incontinence of her bladder and bowel, which is old. 4. History of left femoral DVT. 5. Breast reduction in 2005 6. Cholecystectomy. MEDICATIONS: For her home medications, please see the computer for a fully reconciled listing. She is on: 1. ProAir. 2. Oxybutynin ER 50 mg daily. 3. Zofran 4 mg every 12 hours as needed. 4. Omeprazole 20 mg daily. 5. Viibryd 40 mg daily. 6. Oxycodone 20 mg every 8 hours as needed. 7. Lomotil 1 tab 4 times a day as needed for diarrhea. 8. Fiber-Lax 1 tablet daily. 9. Tylenol p.r.n. 10. Rexulti 1 mg daily. 11. Baclofen 40 mg daily. 12. Levothyroxine 100 mcg daily. 13. Amantadine 100 mg twice daily. 14. Vimpat 30 mg twice daily. 15. Lyrica 25 mg at bedtime. 16. [place] 900 mg daily. 17. Carbamazepine ER 200 mg twice daily. ALLERGIES: She has allergy to a number of medicines and exposures including BEE VENOM, ASPIRIN, SULFA, ONION, PENICILLIN, CETIRIZINE DERIVATIVES, and ERYTHROMYCIN. FAMILY HISTORY: Significant for coronary artery disease. SOCIAL HISTORY: She lives at [facility] [place]. Has a long history of alcohol use, but has been sober for many years. No tobacco use. REVIEW OF SYSTEMS: Review of systems in 14-organ systems as noted above, otherwise negative. PHYSICAL EXAMINATION: Vital Signs: She has temperature of 98.3, pulse rate of 88, respiratory rate 16, O2 saturation of 100%, blood pressure 104/64 to 110/64 to 119/63. General: She is a well-nourished, well-developed female, in no acute distress. She is obese. She is lying in her hospital bed. She is pleasant, well dressed, well groomed. Mood is dysthymic. Cranial Nerves: Pupils are equally round and reactive to light and accommodation. Visual bliss are grossly full to confrontation. She has some nystagmus with lateral gaze bilaterally 3 to 4 beats, but extraocular muscles appear intact. Her face is symmetric. Facial sensation intact to light touch. Tongue is midline. Palate raises symmetrically. Hearing is intact. Motor Exam: She is able to move her upper extremities antigravity with good resistance, say 4 to 4+/5, which is here baseline. She has good art consultant strength as well. In the lower extremities, she has no movement. She cannot move her legs or toes even minimally, but she did withdraw to pain in both her feet. Sensation: She has marked loss of all modalities in the feet all the way up to the knees and then gradual improvement. She has marked reduction of all modalities in the hands with gradual improvement as you move up the arms bilaterally. These are nondermatomal loss of sensation. DTRs were 2+ at the right patella, 2+ at the left patella, equivocal ankles, withdrawal Babinski's bilaterally, 2+ at the biceps and brachioradials. [id number] and rapid alternating movements were slow, but intact. There is no resting tremor. There is no action tremor. Gait could not be tested at this time. LAB WORK: Includes a CBC with diff is normal. INR of 0.98. Glucose of 105, alk phos of 225, lactic acid 1.8, TSH 2.29. Urine 1+ blood, squamous cells present. Burdick is 1.51, slightly elevated. U-tox is otherwise negative. She did have some CT scans done back in 2019 in October and at that time, she had no new lesions. She has not had any imaging since then. She had a lumbar spine CT done in the ER, which showed negative for foraminal stenosis. She had an CT scan of the thoracic spine done in the ER, which showed no acute thoracic spine fracture or dislocation and she had a CT scan of the brain in the ER, which showed no change since 06/04/19, no acute interval intracranial process, moderately patchy low attenuation of deep white matter and minimal atrophy. ASSESSMENT AND PLAN: Ms. Cisneros is a 49-year-old female with a history of multiple medical problems including secondary progressive MS. She is followed by me in clinic. She is also followed by [facility]. At their last visit, they had suggested that she try to go on Gilenya, she has been on multiple medications in the past including infusions of cyclophosphamide with subsequent hematuria. She was forced to stop that. Treatment options at this point are minimal. We discussed the fact that I suspect that this is a progression of her multiple sclerosis. She is secondary progressive and we discussed the fact that the natural history of the disease is for one to become progressively weaker MRI of the brain, C-spine, T-spine and L-spine would not ticket dispenser changer. If we saw lesion, then it would confirm. If we did not see a lesion , I would still suspect progression of her secondary progressive multiple sclerosis. In any event, treatment becomes the major question. I am extremely hesitant given the COVID pandemic as well as the fact that she lives in a long term, to suppress her immune system too much. After discussing the risks we decided on a one time dose of 500 mg of Solu-Medrol to see if she has any response, but I would not suppress her immune system any more. Her symptoms started on the right side 2 weeks ago and recently involved the left side 2 days ago. So, it sounds like whatever process is going on has been going on for 2 weeks. We discussed the fact that steroids can sometimes shorten recovery, but do not normally change the ultimate outcome of a flair and she understands that. At this point, the major issue is physical therapy and occupational therapy and frankly I am anxious to get her out of the hospital setting given her multiple sclerosis and immunosuppressed state given the COVID pandemic. I do think once she has received her 500 mg of Solu-Medrol that she can likely go back to her care facility for more aggressive PT and OT there with a lower risk hopefully of COVID transmission. I would not treat her with any new disease modifying therapy. She does need to follow up with [facility], which she will schedule. It had to be canceled because of the COVID epidemic. She will also follow with me and you can make a followup in 8 to 12 weeks. For now, I will sign off, but remain available for any new neurologic issues. Otherwise, I will plan to see her as an outpatient. Thank you for the opportunity to participate in her care. [id number]/[facility] #: [id number] [facility]ITAL[facility]
--- NOTE | 2019-10-11 12:36 | CONSULT ---
Consult Consult: HPI: The pt is a 49 y/o female with advanced MS that has been admitted to the hospital due to loss of movement in her lower extremities. Ortho was consulted due to pain that has been ongoing in her left shoulder. The pt states that the pain has been ongoing for a very long time and feels like it is in the bone of the joint. She states that the pain feels like ground glass is in her shoulder. She states it is painful to move the shoulder around. She states it is deep and aching although it can become sharp with movements. She states it is constant at this point. She denies any fevers, chills or night sweats. She denies any history of injury the left shoulder. She is RHD. Allergies Allergy/AdvReac Type Severity Reaction Status Date / Time bee venom protein (honey bee) Allergy Severe See Comment Verified 10/10/19 23:54 onion Allergy Severe See Comment Verified 10/10/19 23:54 Sulfa (Sulfonamide Allergy Severe Unknown Verified 10/10/19 23:54 Antibiotics) Reaction Details aspirin Allergy Intermediate Nausea Verified 10/10/19 23:54 Penicillins Allergy Intermediate See Comment Verified 10/10/19 23:54 [place] And Derivatives Allergy Unknown See Comment Verified 10/10/19 23:54 erythromycin base Allergy Unknown Verified 10/10/19 23:54 Reaction Details PMHx: Thyroid Disease Asthma - as a child Hx Pulmonary Embolism Hx Sleep Apnea Gastroesophageal Reflux Disease urinary incontinence Arthritis - knees, right hand Hx Back Problems Multiple Sclerosis Anxiety Depression Hx Substance Abuse Surgery Hx: BREAST REDUCTION 2006 oral surgeries Known Family History: Positive: Cardiac Disease - Father, Diabetes Family History: FHx of spina bifida - Social History Alcohol Use: None 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 Hx Substance Use: No Substance Use Type: Reports: None Hx Tobacco Use: Yes Smoking Status (MU): Former Smoker Type: Cigarettes Amount Used/How Often: 2 cigaretts/week Length of Time of Smoking/Using Tobacco: 2 months Have You Smoked in the Last Year: No Home Medications Medication Instructions Recorded Confirmed Type Vilazodone (NF) [Viibryd (NF)] 40 mg PO DAILY 09/11/17 08/07/19 History Brexpiprazole (Nf) [Rexulti] 1 mg PO DAILY 06/27/18 08/07/19 History Diazepam TAB(*) [Valium TAB(*)] 5 mg PO BID PRN 04/04/19 08/07/19 History Morphine TAB Extended Rel(*) [Ms 15 mg PO QAM PRN 04/04/19 08/07/19 History Contin(*)] Ondansetron TAB* [Zofran 4 MG Tab*] 4 mg PO Q6H PRN 04/04/19 08/07/19 History Oxycodone TAB(NF) [Oxycodone HCl 20 mg PO Q8H PRN 04/04/19 08/07/19 History 10 MG] [place] Carbonate ER (NF) 900 mg PO BEDTIME 04/05/19 08/07/19 History Diphenoxylate HCl/Atropine 1 tab PO QID PRN 05/25/19 08/07/19 History [Lomotil 2.5-0.025 mg Tablet] Baclofen TAB* [Lioresal TAB*] 40 mg PO BID 05/28/19 08/07/19 History Acetaminophen TAB* [Tylenol TAB*] 650 mg PO Q6H PRN tab 06/07/19 08/07/19 Rx Cyanocobalamin TAB* [Vitamin B12 1,000 mcg PO DAILY tab 06/07/19 08/07/19 Rx TAB*] Docusate CAP* [Colace Cap*] 100 mg PO DAILY PRN cap 06/07/19 08/07/19 Rx Levothyroxine TAB* [Synthroid 88 88 mcg PO 0600 tab 06/07/19 08/07/19 Rx MCG TAB*] Polyethylene Glycol 3350* [Miralax 17 gm PO DAILY PRN packet 06/07/19 08/07/19 Rx (17 GM DOSE HEATHER)] Amantadine CAP* [Symmetrel CAP*] 100 mg PO BID 06/21/19 08/07/19 History Magnesium Hydroxide LIQ* [Milk of 60 ml PO DAILY PRN 06/21/19 08/07/19 History Magnesia LIQ*] Mirabegron (NF) [Myrbetriq (NF)] 50 mg PO DAILY 06/21/19 08/07/19 History Omeprazole CAP (NF) [Prilosec CAP* 20 mg PO DAILY 06/21/19 08/07/19 History 20 MG] Pregabalin 25 mg CAP (*) [Lyrica 25 mg PO BEDTIME 06/21/19 08/07/19 History 25 mg CAP (*)] Senna TAB 8.6 mg* [Senokot 8.6 mg 2 tab PO BEDTIME PRN 06/21/19 08/07/19 History TAB*] carBAMazepine TAB(*) [Tegretol 200 mg PO BID #60 tab 06/27/19 08/07/19 Rx TAB(*)] ROS: Negative: Fever Positive: Diarrhea Genitourinary: Other - positive - difficulty controlling urination Musculoskeletal: Other - chronic lower back pain Positive: Numbness All Other Systems Reviewed And Are Negative: Yes Physical Exam: General: Well-developed, Obese female. No acute distress. MSK, LUE: Inspection of the shoulder reveals no erythema or ecchymosis, skin is warm, dry and intact. The pt refuses active ROM at this time but allowed passive ROM. The pt is able to extend the shoulder to 170 with pain. She can IR to 70 with pain and ER to 40 with significant pain. She has a positive Webb. She has no laxity with rotator cuff stress testing although there is mild pain with supraspinatus stress testing. She has full ROM of the elbow, wrist and digits. She is NVI distally and has a 2+ radial pulse. IMAGING: Xrays of the shoulder were obtained and reviewed today. There is no acute osseous abnormalities evident. The views that are obtained are not pefect APs of the shoulder. Level of arthritis is not able to be accurately gauged. ASSESSMENT: Left shoulder pain - possible osteoarthritis PLAN: Concern for infection is low. No elevated markers such as white count or CRP. The pt is afebrile. I explained to the pt that she could start on shoulder exercises to help strengthen the shoulder. She can also utilize NSAIDs should she be allowed to use them. Should the shoulder continue to hurt then she can come to the office for a possible ultrasound guided steroid injection of the arthritic shoulder to help with pain relief. She did states that her back pain is much more bothersome than her shoulder. I was not able to guide her on recommendations for back pain but explained that her PCP may refer her to the pain clinic for possible ablations or shots.
--- NOTE | 2019-10-11 14:48 | DS ---
CC: Dr. Chandler; Dr. Tim Lara, Neurology; [facility] and provider; Dr. Pack* DISCHARGE SUMMARY: DATE OF ADMISSION: 10/11/19 DATE OF DISCHARGE: 10/11/19 PRIMARY CARE PROVIDER: Dr. Chandler. DISPOSITION AT DISCHARGE: To [facility]. CONDITION AT DISCHARGE: Stable. DISCHARGE DIAGNOSES: 1. Progression of multiple sclerosis with bilateral lower extremity weakness. 2. Exacerbation of chronic left shoulder pain due to likely arthritis. SECONDARY DIAGNOSES: 1. Secondary progressive multiple sclerosis. 2. Migraine headaches. 3. History of optic neuritis. 4. Seizure disorder. 5. Cognitive impairment secondary to multiple sclerosis. 6. Depression. 7. Anxiety disorder. 8. Obstructive sleep apnea. 9. Polyneuropathy. 10. Myositis. 11. Asthma. 12. Bipolar disorder. 13. Irritable bowel syndrome. 14. Gastroesophageal reflux disease. 15. Urinary incontinence. 16. Hypothyroidism. 17. Left femoral DVT. 18. Breast reduction in 2005. 19. Status post cholecystectomy remotely. MEDICATIONS AT DISCHARGE: Include: 1. Carbamazepine ER 200 mg twice a day. 2. [place] 900 mg daily. 3. Lyrica 25 mg at bedtime. 4. Vimpat 30 mg twice a day oral solution. 5. Levothyroxine 100 mcg daily. 6. Amantadine 100 mg twice a day 7. Baclofen 40 mg twice a day. 8. Rexulti 1 mg daily. 9. Acetaminophen on a p.r.n. basis. 10. Lomotil on a p.r.n. basis. 11. Fiber-Lax 1 tablet daily. 12. Viibryd 40 mg daily. 13. Omeprazole 20 mg daily. 13. Zofran on a p.r.n. basis. 14. Oxybutynin ER 15 mg daily. 15. ProAir on p.r.n. basis. 16. BuSpar 7.5 mg twice a day. Please note that those medications are unchanged from the patient's admission medications and none of the patient's medications were changed at discharge. LABORATORY DATA AND STUDIES PERFORMED DURING THE HOSPITAL STAY: Unchanged from admission and please refer to Dr. Whyte's history and admission for details. CONSULTATIONS DURING THE HOSPITAL STAY: Included Dr. Lara from Neurology as well as Dr. Pack and Cornel Cherry from Orthopedic Surgery in regards of left shoulder pain. HOSPITALIZATION COURSE: Karla Cisneros is a 49-year-old female with a history of secondary progressive multiple sclerosis, who originally was placed on hospice at [facility] in May of 2019, but she markedly improved and hospice signed off. She is currently still a resident of [facility]. She came into the hospital with complaints of bilateral leg weakness. She stated that initially her left leg became weak approximately 2 to 3 weeks ago and then her right leg followed. She used to be able to transfer by herself. She was seen in the emergency department and was placed on overnight observation. Dr. Tim Lara, who is the patient's outpatient neurologist, saw the patient in consultation. Dr. Lara recommended an infusion of 500 mg Solu-Medrol. He also noted that unfortunately the patient 's disease is progressive and the risk of trying any other medications and to suppress her immune response even further in the phase of COVID pandemic at this point is not justified. She is recommended [facility] and to follow up with Dr. Lara in approximately 1 to 2 months. The patient also was complaining of left shoulder pain. In fact, she has bilateral shoulder pain likely due to arthritis. Cornel Cherry from Dr. Pack' office saw the patient in consultation and deemed the patient likely has osteoarthritis, but x- rays were ordered prior to the patient's discharge and will be completed hopefully prior to the patient's discharge back to [facility]. PHYSICAL EXAM AT THE TIME OF DISCHARGE: Unchanged from admission. Please note this is a short summary of the patient's hospitalization. Please refer to further medical records for details. [id number]/CPS #: [id number] [facility]
[2019-10-11] MEDS ORDERED: Pregabalin 25 mg CAP (*) PO SCH (21:00)
[2019-10-11] MEDS ORDERED: Lithium Carbonate ER* 450 MG TAB.ER PO SCH (21:00)
== END 2019-10-11 14:48 ==
LOC: ED 23:47 → MEDTELE 10-11 03:51
PROVIDERS: ADMIT Internal Medicine; ATTEND Internal Medicine
DX: G35 Multiple sclerosis (principal); M25.512 Pain in left shoulder; G89.29 Other chronic pain; M19.90 Unspecified osteoarthritis, unspecified site; G43.909 Migraine, unspecified, not intractable, without status migrainosus; H46.9 Unspecified optic neuritis; G40.909 Epilepsy, unspecified, not intractable, without status epilepticus; G31.84 Mild cognitive impairment of uncertain or unknown etiology; F41.9 Anxiety disorder, unspecified; G47.33 Obstructive sleep apnea (adult) (pediatric); G62.9 Polyneuropathy, unspecified; M60.9 Myositis, unspecified; J45.909 Unspecified asthma, uncomplicated; F31.9 Bipolar disorder, unspecified; K58.9 Irritable bowel syndrome, unspecified; K21.9 Gastro-esophageal reflux disease without esophagitis; R32 Unspecified urinary incontinence; E03.9 Hypothyroidism, unspecified; I82.412 Acute embolism and thrombosis of left femoral vein; Z98.890 Other specified postprocedural states; Z79.890 Hormone replacement therapy; Z79.899 Other long term (current) drug therapy; Z88.2 Allergy status to sulfonamides; Z88.6 Allergy status to analgesic agent; Z88.0 Allergy status to penicillin; Z87.891 Personal history of nicotine dependence
CPT/HCPCS: 36415; 70450; 72129; 72132; 80053; 80178; 80307; 81003; 81015; 83605; 83735; 84443; 84484; 85025; 85610; 86140; 87077; 87086; 87186; 96361; 96365; 96372; 99284; A9270-GY; G0378; G0480; J1642; J1650; J2930; Q9967

== ENCOUNTER 2020-01-16 02:35 | Inpatient (IN) ==
[2020-01-16] MEDS ORDERED: Ondansetron ODT 4 mg TAB 4 MG TAB SL ONE (03:02)
[2020-01-16] MEDS ORDERED: Diphenoxylat/Atrop 2.5-0.025mg TAB PO ONE (03:03)
[2020-01-16 04:09] LABS: ABS Lymphocytes 0.9 10^3/ul (1.0-4.8); ABS Monocytes 0.5 10^3/ul (0-0.8); ABS Neutrophils 4.7 10^3/ul (1.5-7.7); Hematocrit 38 % (35-47); Hemoglobin 13.4 g/dL (12.0-16.0); Lymphocyte % 14.8 %; Mean Corpuscular HGB Conc 35 g/dL (31-36); Mean Corpuscular Hemoglobin 33 pg (27-31); Mean Corpuscular Volume 93 fL (80-97); Mean Platelet Volume 8.5 fL (7.4-10.4); Platelet Count 329 10^3/uL (150-450); Red Cell Distribution Width 14 % (10-15); White Blood Count 6.1 10^3/uL (3.5-10.8)
[2020-01-16 04:32] LABS: ALT 28 U/L (7-52); AST 22 U/L (13-39); Albumin/Globulin Ratio 1.5 (1-3); Alkaline Phosphatase 152 U/L (34-104); Anion Gap 6 mmol/L (2-11); BUN/Creatinine Ratio 10.9 (8-20); Blood Urea Nitrogen 6 mg/dL (6-24); C Reactive Protein 4.16 mg/L (<8.01); CO2 Carbon Dioxide 28 mmol/L (22-32); Calcium 9.7 mg/dL (8.6-10.3); Chloride 104 mmol/L (101-111); EGFR African American 141.6 (>60); Globulin 2.6 g/dL (2-4); Glucose 113 mg/dL (70-100); Lipase 12 U/L (11.0-82.0); Sodium 138 mmol/L (135-145); Total Protein 6.6 g/dL (6.4-8.9)
[2020-01-16] MEDS ORDERED: Senna TAB 8.6 mg TAB PO PRN (06:01)
[2020-01-16] MEDS ORDERED: Al Hydrox/Mg Hydrox/Simet LIQ 30 ML UDC PO PRN (06:19)
[2020-01-16 06:40] LABS: Lithium 1.15 mmol/L (0.6-1.2)
[2020-01-16 06:49] LABS: Magnesium 1.8 mg/dL (1.9-2.7)
[2020-01-16] MEDS ORDERED: Potassium Chlor 20 meq TAB.ER PO ONE (06:55)
[2020-01-16] MEDS: KCL 10 MEQ/50 ML IVPREMIX 10 MEQ/50 ML BAG IV SCH ×3 (07:35→09:51)
[2020-01-16] MEDS: Ondansetron 4 mg VIAL 2 MG/ML 2 ml VIAL IV PRN ×3 (10:43→22:26)
[2020-01-16] MEDS: LACOSAMIDE 10 MG/ML PO SCH ×2 (10:49→23:12)
[2020-01-16] MEDS: VILAZODONE 40 MG PO SCH (10:49)
[2020-01-16] MEDS: Heparin 5000 UNITS/ML 1 mL VIAL SUBCUT SCH ×2 (14:14→23:15)
[2020-01-16 14:43] LABS: Urine Appearance Cloudy; Urine Bilirubin Negative (Negative); Urine Blood Negative (Negative); Urine Color Yellow; Urine Glucose Negative (Negative); Urine Ketones Negative (Negative); Urine Nitrite Positive (Negative); Urine Protein Negative (Negative); Urine Specific Gravity 1.008 (1.010-1.030); Urine Urobilinogen Negative (Negative)
[2020-01-16 15:17] LABS: Urine Bacteria 1+ (Absent); Urine Red Blood Cell Absent (Absent); Urine Squamous Epithelial Cell Present (Absent); Urine White Blood Cell 3+(>20/hpf) (Absent)
[2020-01-16 17:49] LABS: Vitamin D Total 25(OH) < 7.0 ng/mL (20-50)
[2020-01-16] MEDS: NS 0.9% 1000 ml BAG 1,000 ML IV SCH (21:24)
[2020-01-16] MEDS: LITHIUM CARBONATE 300 MG PO SCH (23:10)
[2020-01-17] MEDS: NS 0.9% 1000 ml BAG 1,000 ML IV SCH (05:32)
[2020-01-17] MEDS: Heparin 5000 UNITS/ML 1 mL VIAL SUBCUT SCH ×3 (05:38→21:35)
[2020-01-17] MEDS: Ondansetron 4 mg VIAL 2 MG/ML 2 ml VIAL IV PRN ×3 (05:44→18:46)
[2020-01-17 05:50] LABS: ABS Lymphocytes 1.2 10^3/ul (1.0-4.8); ABS Monocytes 0.4 10^3/ul (0-0.8); ABS Neutrophils 2.5 10^3/ul (1.5-7.7); Hematocrit 34 % (35-47); Lymphocyte % 28.2 %; Mean Corpuscular HGB Conc 35 g/dL (31-36); Mean Corpuscular Hemoglobin 33 pg (27-31); Mean Corpuscular Volume 93 fL (80-97); Mean Platelet Volume 8.5 fL (7.4-10.4); Nucleated Red Blood Cells % 0.1; Platelet Count 298 10^3/uL (150-450); Red Blood Count 3.69 10^6 /uL (3.70-4.87); Red Cell Distribution Width 13 % (10-15); White Blood Count 4.1 10^3/uL (3.5-10.8)
[2020-01-17 06:06] LABS: BUN/Creatinine Ratio 10.2 (8-20); Calcium 8.6 mg/dL (8.6-10.3); EGFR African American 130.5 (>60); EGFR Non-African American 107.9 (>60); Potassium 3.7 mmol/L (3.5-5.0)
[2020-01-17] MEDS ORDERED: LORazepam 2 mg VIAL 1 ml IV PUSH ONE (08:40)
[2020-01-17] MEDS ORDERED: Lorazepam PYXIS KEY PRN (08:40)
[2020-01-17] MEDS: LACOSAMIDE 10 MG/ML PO SCH ×2 (10:47→21:34)
[2020-01-17] MEDS: VILAZODONE 40 MG PO SCH (10:49)
[2020-01-17] MEDS ORDERED: Metoclopramide 5 MG/ML VIAL (10 mg) IV ONE (20:20)
[2020-01-17] MEDS ORDERED: Nitrofurantoin (monohydrate/macrocrystals) 100 mg CAP PO SCH (21:00)
[2020-01-17] MEDS: LITHIUM CARBONATE 300 MG PO SCH (21:34)
[2020-01-18] MEDS: Heparin 5000 UNITS/ML 1 mL VIAL SUBCUT SCH ×3 (05:38→21:06)
[2020-01-18] MEDS: Ondansetron 4 mg VIAL 2 MG/ML 2 ml VIAL IV PRN ×3 (05:38→20:56)
[2020-01-18 05:51] LABS: ABS Lymphocytes 1.3 10^3/ul (1.0-4.8); ABS Monocytes 0.4 10^3/ul (0-0.8); ABS Neutrophils 2.6 10^3/ul (1.5-7.7); Eosinophil % 0.1 %; Hematocrit 35 % (35-47); Hemoglobin 12.2 g/dL (12.0-16.0); Lymphocyte % 30.6 %; Mean Corpuscular HGB Conc 35 g/dL (31-36); Mean Corpuscular Hemoglobin 33 pg (27-31); Mean Corpuscular Volume 95 fL (80-97); Mean Platelet Volume 8.3 fL (7.4-10.4); Nucleated Red Blood Cells % 0.1; Platelet Count 284 10^3/uL (150-450); Red Blood Count 3.71 10^6 /uL (3.70-4.87); Red Cell Distribution Width 13 % (10-15); White Blood Count 4.4 10^3/uL (3.5-10.8)
[2020-01-18 08:31] LABS: BUN/Creatinine Ratio 9.1 (8-20); Calcium 9.2 mg/dL (8.6-10.3); EGFR African American 114.7 (>60); EGFR Non-African American 94.8 (>60); Potassium 3.8 mmol/L (3.5-5.0)
[2020-01-18] MEDS: VILAZODONE 40 MG PO SCH (08:58)
[2020-01-18] MEDS: LACOSAMIDE 10 MG/ML PO SCH ×2 (09:48→21:06)
[2020-01-18] MEDS: cefTRIAXone 1 gm/50 mL NS BAG 1 GM/50 ML BAG IVPB SCH (10:06)
[2020-01-18] MEDS: LITHIUM CARBONATE 300 MG PO SCH (21:04)
[2020-01-19] MEDS: Heparin 5000 UNITS/ML 1 mL VIAL SUBCUT SCH ×4 (05:59→21:32)
[2020-01-19] MEDS: Ondansetron 4 mg VIAL 2 MG/ML 2 ml VIAL IV PRN ×3 (06:00→21:02)
[2020-01-19] MEDS: VILAZODONE 40 MG PO SCH (09:38)
[2020-01-19] MEDS: cefTRIAXone 1 gm/50 mL NS BAG 1 GM/50 ML BAG IVPB SCH (09:43)
[2020-01-19] MEDS: LACOSAMIDE 10 MG/ML PO SCH ×2 (09:43→21:09)
[2020-01-19] MEDS ORDERED: Diphenoxylat/Atrop 2.5-0.025mg TAB PO PRN (12:30)
[2020-01-19] MEDS ORDERED: CHOLECALCIFEROL 50000 UNIT PO SCH (14:00)
[2020-01-19] MEDS: LITHIUM CARBONATE 300 MG PO SCH (21:14)
[2020-01-20] MEDS: Ondansetron 4 mg VIAL 2 MG/ML 2 ml VIAL IV PRN ×3 (03:48→19:54)
[2020-01-20] MEDS ORDERED: Prochlorperazine 5 mg/ml 2 ml VIAL (10 mg) IV PRN (06:10)
[2020-01-20] MEDS: Prochlorperazine 5 mg/ml 2 ml VIAL (10 mg) IV PRN (06:34)
[2020-01-20] MEDS: Heparin 5000 UNITS/ML 1 mL VIAL SUBCUT SCH ×3 (07:27→22:08)
[2020-01-20] MEDS: cefTRIAXone 1 gm/50 mL NS BAG 1 GM/50 ML BAG IVPB SCH (08:16)
[2020-01-20] MEDS: VILAZODONE 40 MG PO SCH (08:17)
[2020-01-20] MEDS: LACOSAMIDE 10 MG/ML PO SCH ×2 (08:18→22:51)
[2020-01-20] MEDS ORDERED: DiMENhydriNATE IV 50 mg/ml 1 ml VIAL IV PUSH ONE (14:31)
[2020-01-20] MEDS ORDERED: Alteplase (CATHFLO) 2 MG VIAL IV ONE (15:27)
[2020-01-20] MEDS: LITHIUM CARBONATE 300 MG PO SCH (22:07)
[2020-01-21] MEDS: Ondansetron 4 mg VIAL 2 MG/ML 2 ml VIAL IV PRN ×4 (06:19→22:19)
[2020-01-21] MEDS: Heparin 5000 UNITS/ML 1 mL VIAL SUBCUT SCH ×3 (06:38→22:19)
[2020-01-21] MEDS: VILAZODONE 40 MG PO SCH (10:38)
[2020-01-21] MEDS: cefTRIAXone 1 gm/50 mL NS BAG 1 GM/50 ML BAG IVPB SCH (10:48)
[2020-01-21] MEDS: LACOSAMIDE 10 MG/ML PO SCH ×2 (10:56→22:13)
[2020-01-21] MEDS: LITHIUM CARBONATE 300 MG PO SCH (22:13)
[2020-01-22] MEDS: Heparin 5000 UNITS/ML 1 mL VIAL SUBCUT SCH ×3 (05:53→20:00)
[2020-01-22 06:20] LABS: ABS Lymphocytes 1.2 10^3/ul (1.0-4.8); ABS Monocytes 0.3 10^3/ul (0-0.8); Eosinophil % 0.1 %; Hematocrit 39 % (35-47); Hemoglobin 13.3 g/dL (12.0-16.0); Lymphocyte % 25.8 %; Mean Corpuscular HGB Conc 35 g/dL (31-36); Mean Corpuscular Hemoglobin 33 pg (27-31); Mean Corpuscular Volume 95 fL (80-97); Mean Platelet Volume 8.3 fL (7.4-10.4); Nucleated Red Blood Cells % 0.1; Platelet Count 314 10^3/uL (150-450); Red Blood Count 4.09 10^6 /uL (3.70-4.87); Red Cell Distribution Width 14 % (10-15); White Blood Count 4.6 10^3/uL (3.5-10.8)
[2020-01-22 06:35] LABS: BUN/Creatinine Ratio 16.4 (8-20); Calcium 9.5 mg/dL (8.6-10.3); EGFR African American 102.1 (>60); EGFR Non-African American 84.4 (>60); Potassium 3.7 mmol/L (3.5-5.0)
[2020-01-22] MEDS: Ondansetron 4 mg VIAL 2 MG/ML 2 ml VIAL IV PRN ×4 (07:50→20:02)
[2020-01-22] MEDS: cefTRIAXone 1 gm/50 mL NS BAG 1 GM/50 ML BAG IVPB SCH (07:50)
[2020-01-22] MEDS: LACOSAMIDE 10 MG/ML PO SCH ×2 (08:41→20:05)
[2020-01-22] MEDS: VILAZODONE 40 MG PO SCH (08:53)
[2020-01-22] MEDS ORDERED: Scopolamine PATCH Remove NOTE PATCH OFF SCH (12:59)
[2020-01-22] MEDS: LITHIUM CARBONATE 300 MG PO SCH (19:59)
[2020-01-23] MEDS: Heparin 5000 UNITS/ML 1 mL VIAL SUBCUT SCH ×3 (06:28→23:49)
[2020-01-23 06:56] LABS: ABS Basophils 0.1 10^3/ul (0-0.2); ABS Lymphocytes 1.3 10^3/ul (1.0-4.8); ABS Monocytes 0.5 10^3/ul (0-0.8); ABS Neutrophils 3.4 10^3/ul (1.5-7.7); Hematocrit 39 % (35-47); Hemoglobin 13.3 g/dL (12.0-16.0); Lymphocyte % 24.5 %; Mean Corpuscular HGB Conc 34 g/dL (31-36); Mean Corpuscular Hemoglobin 32 pg (27-31); Mean Corpuscular Volume 95 fL (80-97); Mean Platelet Volume 8.1 fL (7.4-10.4); Nucleated Red Blood Cells % 0.1; Platelet Count 289 10^3/uL (150-450); Red Blood Count 4.11 10^6 /uL (3.70-4.87); Red Cell Distribution Width 14 % (10-15); White Blood Count 5.3 10^3/uL (3.5-10.8)
[2020-01-23 07:08] LABS: BUN/Creatinine Ratio 16.9 (8-20); Calcium 9.2 mg/dL (8.6-10.3); EGFR African American 105.4 (>60); EGFR Non-African American 87.1 (>60); Potassium 3.6 mmol/L (3.5-5.0)
[2020-01-23] MEDS: cefTRIAXone 1 gm/50 mL NS BAG 1 GM/50 ML BAG IVPB SCH (09:23)
[2020-01-23] MEDS: VILAZODONE 40 MG PO SCH (09:23)
[2020-01-23] MEDS: LACOSAMIDE 10 MG/ML PO SCH (09:24)
[2020-01-23] MEDS: Ondansetron 4 mg VIAL 2 MG/ML 2 ml VIAL IV PRN ×3 (09:53→22:33)
[2020-01-23] MEDS: Prochlorperazine 5 mg/ml 2 ml VIAL (10 mg) IV PRN (20:52)
[2020-01-23] MEDS: LITHIUM CARBONATE 300 MG PO SCH (23:43)
[2020-01-24] MEDS: LACOSAMIDE 10 MG/ML PO SCH (00:42)
[2020-01-24] MEDS: Heparin 5000 UNITS/ML 1 mL VIAL SUBCUT SCH (06:19)
[2020-01-24] MEDS: Ondansetron 4 mg VIAL 2 MG/ML 2 ml VIAL IV PRN (07:17)
[2020-01-24 08:37] VITALS: BP 115/76
[2020-01-24] MEDS ORDERED: LACOSAMIDE 10 MG/ML PO SCH (09:00)
[2020-01-24] MEDS: VILAZODONE 40 MG PO SCH (09:04)
[2020-01-24] MEDS: cefTRIAXone 1 gm/50 mL NS BAG 1 GM/50 ML BAG IVPB SCH (09:04)
[2020-01-24] MEDS ORDERED: LaCOSAMide ORALSYR LIQ 10 MG/ML PO SCH (21:00)
[2020-01-25 11:32] LABS: Lacosamide 1.3 mcg/mL (1.0 - 10.0)
[2020-01-26 11:07] LABS: Lacosamide 1.3 mcg/mL (1.0 - 10.0)
== END 2020-01-24 11:35 | DRG 392 ==
LOC: ED 02:35 → MED 06:19
PROVIDERS: ADMIT Pediatrics; ATTEND Student in an Organized Health Care Education/Training Program

== ENCOUNTER 2020-06-15 09:07 | Inpatient (IN) ==
[2020-06-15] MEDS ORDERED: NS 0.9% 1000 ml BAG 1,000 ML IV ONE ×2 (09:20→09:36)
[2020-06-15 10:16] LABS: ABS Lymphocytes 1.3 10^3/ul (1.0-4.8); ABS Monocytes 0.4 10^3/ul (0-0.8); ABS Neutrophils 4.3 10^3/ul (1.5-7.7); Hematocrit 45 % (35-47); Hemoglobin 14.9 g/dL (12.0-16.0); Mean Corpuscular HGB Conc 33 g/dL (31-36); Mean Corpuscular Hemoglobin 33 pg (27-31); Mean Corpuscular Volume 99 fL (80-97); Mean Platelet Volume 9.3 fL (7.4-10.4); Nucleated Red Blood Cells % 0.1; Platelet Count 331 10^3/uL (150-450); Red Blood Count 4.54 10^6 /uL (3.70-4.87); Red Cell Distribution Width 13 % (10-15); White Blood Count 6.1 10^3/uL (3.5-10.8)
[2020-06-15 10:24] LABS: ALT 24 U/L (7-52); Albumin 4.5 g/dL (3.2-5.2); Albumin/Globulin Ratio 1.5 (1-3); Alkaline Phosphatase 137 U/L (34-104); BUN/Creatinine Ratio 16.1 (8-20); Blood Urea Nitrogen 10 mg/dL (6-24); CO2 Carbon Dioxide 26 mmol/L (22-32); Chloride 104 mmol/L (101-111); EGFR African American 122.8 (>60); EGFR Non-African American 101.5 (>60); Globulin 3.1 g/dL (2-4); Glucose 92 mg/dL (70-100); Sodium 136 mmol/L (135-145); Total Protein 7.6 g/dL (6.4-8.9)
[2020-06-15 10:38] LABS: Carbamazepine 9.1 mcg/mL (4.0-12.0); Lithium 1.45 mmol/L (0.6-1.2)
[2020-06-15 10:44] LABS: Anion Gap 6 mmol/L (2-11)
[2020-06-15 10:52] LABS: TSH Ultra Thyroid Stim Horm 2.72 mcIU/mL (0.34-5.60)
[2020-06-15 11:03] LABS: Vitamin B12 788 pg/mL (180-914)
[2020-06-15 11:14] LABS: Urine Appearance Clear; Urine Bilirubin Negative (Negative); Urine Blood 1+ (Negative); Urine Color Straw; Urine Glucose Negative (Negative); Urine Ketones Negative (Negative); Urine Nitrite Negative (Negative); Urine Protein Negative (Negative); Urine Specific Gravity 1.008 (1.010-1.030); Urine Urobilinogen Negative (Negative)
[2020-06-15 11:21] LABS: Urine Bacteria Absent (Absent); Urine Red Blood Cell 3+(>10/hpf) (Absent); Urine Squamous Epithelial Cell Present (Absent); Urine White Blood Cell Trace(0-5/hpf) (Absent)
[2020-06-15 16:02] LABS: CO2 Carbon Dioxide 19 mmol/L (22-32); Calcium 9.2 mg/dL (8.6-10.3); Sodium 142 mmol/L (135-145)
[2020-06-15 16:07] LABS: Anion Gap 9 mmol/L (2-11); Blood Urea Nitrogen 8 mg/dL (6-24); Chloride 114 mmol/L (101-111); EGFR African American 135.3 (>60); EGFR Non-African American 111.8 (>60); Glucose 82 mg/dL (70-100)
[2020-06-15] MEDS ORDERED: Albuterol HFA INHALER 8 gm MDI INH PRN (16:19)
[2020-06-15] MEDS: Enoxaparin 40 MG/0.4 ML SYR SUBCUT SCH (20:08)
[2020-06-15] MEDS: Lithium Carbonate ER 450mg TAB PO SCH (20:11)
[2020-06-15] MEDS: carBAMazepine 100mg CHEWTAB PO SCH (20:11)
[2020-06-15] MEDS: LaCOSAMide ORALSYR LIQ 10 MG/ML PO SCH (21:49)
[2020-06-16] MEDS: LaCOSAMide ORALSYR LIQ 10 MG/ML PO SCH ×2 (11:44→20:17)
[2020-06-16] MEDS: carBAMazepine 100mg CHEWTAB PO SCH ×2 (11:49→20:17)
[2020-06-16] MEDS: Calcium Polycarbophil 625mg TB PO SCH (11:49)
[2020-06-16] MEDS: Enoxaparin 40 MG/0.4 ML SYR SUBCUT SCH (18:36)
[2020-06-16] MEDS ORDERED: Remdesivir 5 MG/ML LIQ IV Vial 200 MG in NS 0.9% 250 ml 210 ML IV ONE (20:03)
[2020-06-16] MEDS: Lithium Carbonate ER 450mg TAB PO SCH (20:14)
[2020-06-17] MEDS: LaCOSAMide ORALSYR LIQ 10 MG/ML PO SCH ×2 (08:22→23:34)
[2020-06-17] MEDS: carBAMazepine 100mg CHEWTAB PO SCH ×2 (08:24→21:43)
[2020-06-17] MEDS: Calcium Polycarbophil 625mg TB PO SCH (08:25)
[2020-06-17 09:33] LABS: ABS Lymphocytes 1.2 10^3/ul (1.0-4.8); ABS Monocytes 0.5 10^3/ul (0-0.8); ABS Neutrophils 3.9 10^3/ul (1.5-7.7); Hematocrit 37 % (35-47); Hemoglobin 12.6 g/dL (12.0-16.0); Mean Corpuscular HGB Conc 34 g/dL (31-36); Mean Corpuscular Hemoglobin 33 pg (27-31); Mean Corpuscular Volume 98 fL (80-97); Mean Platelet Volume 8.9 fL (7.4-10.4); Platelet Count 284 10^3/uL (150-450); Red Blood Count 3.81 10^6 /uL (3.70-4.87); Red Cell Distribution Width 13 % (10-15); White Blood Count 5.7 10^3/uL (3.5-10.8)
[2020-06-17 09:49] LABS: Albumin/Globulin Ratio 1.5 (1-3); Calcium 9.7 mg/dL (8.6-10.3); EGFR African American 127.5 (>60); EGFR Non-African American 105.4 (>60); Globulin 2.6 g/dL (2-4); Indirect Bilirubin 0.1 mg/dL (0.3-1.0); Magnesium 1.9 mg/dL (1.9-2.7); Potassium 3.2 mmol/L (3.5-5.0); Total Bilirubin 0.2 mg/dL (0.2-1.0); Total Protein 6.6 g/dL (6.4-8.9)
[2020-06-17] MEDS: Enoxaparin 40 MG/0.4 ML SYR SUBCUT SCH (15:53)
[2020-06-17] MEDS: Remdesivir 5 MG/ML LIQ IV Vial 100 MG in NS 0.9% 250 ml 230 ML IV SCH (21:41)
[2020-06-17] MEDS: Lithium Carbonate ER 450mg TAB PO SCH (21:45)
[2020-06-18] MEDS: CMCS: Vilazodone 40 mg TAB (NF) PO SCH (03:14)
[2020-06-18] MEDS ORDERED: Vilazodone 40 mg TAB (NF) PO SCH (09:00)
[2020-06-18] MEDS: LaCOSAMide ORALSYR LIQ 10 MG/ML PO SCH ×2 (10:29→22:25)
[2020-06-18] MEDS: Calcium Polycarbophil 625mg TB PO SCH (10:30)
[2020-06-18] MEDS: carBAMazepine 100mg CHEWTAB PO SCH ×2 (10:34→22:27)
[2020-06-18] MEDS: Enoxaparin 40 MG/0.4 ML SYR SUBCUT SCH (17:18)
[2020-06-18] MEDS: Remdesivir 5 MG/ML LIQ IV Vial 100 MG in NS 0.9% 250 ml 230 ML IV SCH (22:23)
[2020-06-18] MEDS: Lithium Carbonate ER 450mg TAB PO SCH (22:27)
[2020-06-19 06:16] LABS: ABS Lymphocytes 1.7 10^3/ul (1.0-4.8); ABS Monocytes 0.7 10^3/ul (0-0.8); ABS Neutrophils 5.1 10^3/ul (1.5-7.7); Hematocrit 39 % (35-47); Lymphocyte % 22.4 %; Mean Corpuscular HGB Conc 34 g/dL (31-36); Mean Corpuscular Hemoglobin 33 pg (27-31); Mean Corpuscular Volume 99 fL (80-97); Mean Platelet Volume 9.1 fL (7.4-10.4); Platelet Count 280 10^3/uL (150-450); Red Blood Count 3.93 10^6 /uL (3.70-4.87); Red Cell Distribution Width 13 % (10-15); White Blood Count 7.5 10^3/uL (3.5-10.8)
[2020-06-19 06:33] LABS: Albumin/Globulin Ratio 1.5 (1-3); BUN/Creatinine Ratio 11.5 (8-20); Calcium 9.6 mg/dL (8.6-10.3); EGFR African American 150.4 (>60); EGFR Non-African American 124.3 (>60); Globulin 2.7 g/dL (2-4); Magnesium 2.1 mg/dL (1.9-2.7); Total Bilirubin 0.2 mg/dL (0.2-1.0); Total Protein 6.7 g/dL (6.4-8.9)
[2020-06-19] MEDS ORDERED: Potassium Chlor 20 meq TAB.ER PO ONE (08:16)
[2020-06-19] MEDS: Calcium Polycarbophil 625mg TB PO SCH (09:21)
[2020-06-19] MEDS: LaCOSAMide ORALSYR LIQ 10 MG/ML PO SCH ×2 (09:22→22:24)
[2020-06-19] MEDS: carBAMazepine 100mg CHEWTAB PO SCH ×2 (09:25→22:25)
[2020-06-19] MEDS: CMCS: Vilazodone 40 mg TAB (NF) PO SCH (09:26)
[2020-06-19] MEDS: Benzocaine/Menthol LOZ MT PRN ×2 (11:53→22:25)
[2020-06-19 13:00] LABS: Urine Appearance Cloudy; Urine Bilirubin Negative (Negative); Urine Blood 1+ (Negative); Urine Color Straw; Urine Glucose Negative (Negative); Urine Ketones Negative (Negative); Urine Nitrite Negative (Negative); Urine Protein 1+(30 mg/dL) (Negative); Urine Specific Gravity 1.005 (1.010-1.030); Urine Urobilinogen Negative (Negative)
[2020-06-19 13:06] LABS: Urine Bacteria 1+ (Absent); Urine Red Blood Cell Trace(0-2/hpf) (Absent); Urine Squamous Epithelial Cell Present (Absent); Urine White Blood Cell 3+(>20/hpf) (Absent)
[2020-06-19] MEDS: Enoxaparin 40 MG/0.4 ML SYR SUBCUT SCH (16:43)
[2020-06-19] MEDS: Remdesivir 5 MG/ML LIQ IV Vial 100 MG in NS 0.9% 250 ml 230 ML IV SCH (22:23)
[2020-06-19] MEDS: Lithium Carbonate ER 450mg TAB PO SCH (22:26)
[2020-06-20 08:31] LABS: Albumin 3.8 g/dL (3.2-5.2); Albumin/Globulin Ratio 1.5 (1-3); BUN/Creatinine Ratio 11.8 (8-20); Calcium 9.1 mg/dL (8.6-10.3); EGFR African American 153.8 (>60); EGFR Non-African American 127.1 (>60); Globulin 2.6 g/dL (2-4); Total Bilirubin 0.2 mg/dL (0.2-1.0); Total Protein 6.4 g/dL (6.4-8.9)
[2020-06-20] MEDS: Calcium Polycarbophil 625mg TB PO SCH (09:09)
[2020-06-20] MEDS: Benzocaine/Menthol LOZ MT PRN ×2 (09:10→16:19)
[2020-06-20] MEDS: LaCOSAMide ORALSYR LIQ 10 MG/ML PO SCH (09:10)
[2020-06-20] MEDS: CMCS: Vilazodone 40 mg TAB (NF) PO SCH (09:11)
[2020-06-20] MEDS: carBAMazepine 100mg CHEWTAB PO SCH ×2 (09:11→20:35)
[2020-06-20] MEDS: cefTRIAXone 1 gm/50 mL NS BAG 1 GM/50 ML BAG IVPB SCH (13:00)
[2020-06-20] MEDS: Enoxaparin 40 MG/0.4 ML SYR SUBCUT SCH (16:19)
[2020-06-20] MEDS: Remdesivir 5 MG/ML LIQ IV Vial 100 MG in NS 0.9% 250 ml 230 ML IV SCH (20:30)
[2020-06-20] MEDS: Lithium Carbonate ER 450mg TAB PO SCH (20:35)
[2020-06-21] MEDS: LaCOSAMide ORALSYR LIQ 10 MG/ML PO SCH ×3 (00:39→21:03)
[2020-06-21] MEDS: Calcium Polycarbophil 625mg TB PO SCH (07:53)
[2020-06-21] MEDS: carBAMazepine 100mg CHEWTAB PO SCH ×2 (07:54→21:06)
[2020-06-21] MEDS: CMCS: Vilazodone 40 mg TAB (NF) PO SCH (07:54)
[2020-06-21] MEDS: cefTRIAXone 1 gm/50 mL NS BAG 1 GM/50 ML BAG IVPB SCH (12:32)
[2020-06-21] MEDS: Benzocaine/Menthol LOZ MT PRN (12:35)
[2020-06-21] MEDS ORDERED: Potassium Chlor 20 meq TAB.ER PO ONE (16:24)
[2020-06-21] MEDS: Enoxaparin 40 MG/0.4 ML SYR SUBCUT SCH (17:09)
[2020-06-21] MEDS ORDERED: guaiFENesin 100 mg/5 ml LIQ unit dose cup PO PRN (17:47)
[2020-06-21 18:35] LABS: BUN/Creatinine Ratio 11.5 (8-20); Calcium 9.2 mg/dL (8.6-10.3); EGFR African American 74.1 (>60); EGFR Non-African American 61.3 (>60); Potassium 3.7 mmol/L (3.5-5.0)
[2020-06-21] MEDS: Lithium Carbonate ER 450mg TAB PO SCH (21:06)
[2020-06-21] MEDS ORDERED: diPHENhydraMINE 25 mg TAB PO ONE (23:31)
[2020-06-22 07:30] LABS: BUN/Creatinine Ratio 17.4 (8-20); Calcium 9.5 mg/dL (8.6-10.3); EGFR African American 108.5 (>60); EGFR Non-African American 89.7 (>60); Potassium 3.4 mmol/L (3.5-5.0)
[2020-06-22] MEDS ORDERED: Potassium Chlor 20 meq TAB.ER PO ONE (07:51)
[2020-06-22] MEDS: Calcium Polycarbophil 625mg TB PO SCH (10:36)
[2020-06-22] MEDS: CMCS: Vilazodone 40 mg TAB (NF) PO SCH (10:36)
[2020-06-22] MEDS: LaCOSAMide ORALSYR LIQ 10 MG/ML PO SCH ×2 (10:37→21:02)
[2020-06-22] MEDS: Benzocaine/Menthol LOZ MT PRN (10:37)
[2020-06-22] MEDS: carBAMazepine 100mg CHEWTAB PO SCH ×2 (10:37→21:01)
[2020-06-22] MEDS: Enoxaparin 40 MG/0.4 ML SYR SUBCUT SCH (16:38)
[2020-06-22] MEDS: Lithium Carbonate ER 450mg TAB PO SCH (21:01)
[2020-06-23] MEDS: LaCOSAMide ORALSYR LIQ 10 MG/ML PO SCH ×2 (09:27→21:50)
[2020-06-23] MEDS: CMCS: Vilazodone 40 mg TAB (NF) PO SCH (09:29)
[2020-06-23] MEDS: Calcium Polycarbophil 625mg TB PO SCH (09:30)
[2020-06-23] MEDS: carBAMazepine 100mg CHEWTAB PO SCH ×2 (09:30→21:51)
[2020-06-23] MEDS: Enoxaparin 40 MG/0.4 ML SYR SUBCUT SCH (17:34)
[2020-06-23] MEDS: Lithium Carbonate ER 450mg TAB PO SCH (21:51)
[2020-06-24] MEDS: carBAMazepine 100mg CHEWTAB PO SCH ×2 (08:15→21:21)
[2020-06-24] MEDS: CMCS: Vilazodone 40 mg TAB (NF) PO SCH (08:15)
[2020-06-24] MEDS: Calcium Polycarbophil 625mg TB PO SCH (08:16)
[2020-06-24] MEDS: LaCOSAMide ORALSYR LIQ 10 MG/ML PO SCH ×2 (09:01→21:19)
[2020-06-24] MEDS: Enoxaparin 40 MG/0.4 ML SYR SUBCUT SCH (15:57)
[2020-06-24] MEDS: Lithium Carbonate ER 450mg TAB PO SCH (21:20)
[2020-06-25] MEDS: carBAMazepine 100mg CHEWTAB PO SCH ×2 (07:56→21:51)
[2020-06-25] MEDS: CMCS: Vilazodone 40 mg TAB (NF) PO SCH (07:57)
[2020-06-25] MEDS: Calcium Polycarbophil 625mg TB PO SCH (07:58)
[2020-06-25] MEDS: LaCOSAMide ORALSYR LIQ 10 MG/ML PO SCH ×2 (07:59→21:53)
[2020-06-25 08:58] LABS: BUN/Creatinine Ratio 11.5 (8-20); Calcium 9.3 mg/dL (8.6-10.3); EGFR African American 125.1 (>60); EGFR Non-African American 103.4 (>60); Potassium 3.5 mmol/L (3.5-5.0)
[2020-06-25] MEDS: Enoxaparin 40 MG/0.4 ML SYR SUBCUT SCH (16:18)
[2020-06-25] MEDS: Lithium Carbonate ER 450mg TAB PO SCH (21:52)
[2020-06-26] MEDS: Calcium Polycarbophil 625mg TB PO SCH (08:48)
[2020-06-26] MEDS: carBAMazepine 100mg CHEWTAB PO SCH ×2 (08:49→20:59)
[2020-06-26] MEDS: CMCS: Vilazodone 40 mg TAB (NF) PO SCH (08:49)
[2020-06-26] MEDS: LaCOSAMide ORALSYR LIQ 10 MG/ML PO SCH ×2 (12:38→20:59)
[2020-06-26] MEDS: Enoxaparin 40 MG/0.4 ML SYR SUBCUT SCH (17:01)
[2020-06-26] MEDS: Lithium Carbonate ER 450mg TAB PO SCH (20:58)
[2020-06-27] MEDS: LaCOSAMide ORALSYR LIQ 10 MG/ML PO SCH ×2 (10:50→22:18)
[2020-06-27] MEDS: Calcium Polycarbophil 625mg TB PO SCH (10:51)
[2020-06-27] MEDS: CMCS: Vilazodone 40 mg TAB (NF) PO SCH (10:51)
[2020-06-27] MEDS: carBAMazepine 100mg CHEWTAB PO SCH ×2 (10:51→22:20)
[2020-06-27] MEDS: Enoxaparin 40 MG/0.4 ML SYR SUBCUT SCH (15:41)
[2020-06-27] MEDS: Lithium Carbonate ER 450mg TAB PO SCH (22:19)
[2020-06-28] MEDS: CMCS: Vilazodone 40 mg TAB (NF) PO SCH ×2 (08:20→08:39)
[2020-06-28] MEDS: Calcium Polycarbophil 625mg TB PO SCH ×2 (08:21→08:39)
[2020-06-28] MEDS: LaCOSAMide ORALSYR LIQ 10 MG/ML PO SCH ×3 (08:21→21:03)
[2020-06-28] MEDS: carBAMazepine 100mg CHEWTAB PO SCH ×3 (08:21→20:59)
[2020-06-28] MEDS: Enoxaparin 40 MG/0.4 ML SYR SUBCUT SCH (19:27)
[2020-06-28] MEDS: Lithium Carbonate ER 450mg TAB PO SCH (20:59)
[2020-06-29 05:50] VITALS: BP 110/49
[2020-06-29] MEDS: CMCS: Vilazodone 40 mg TAB (NF) PO SCH (08:38)
[2020-06-29] MEDS: Calcium Polycarbophil 625mg TB PO SCH (08:40)
[2020-06-29] MEDS: carBAMazepine 100mg CHEWTAB PO SCH (08:41)
== END 2020-06-29 09:30 | DRG 177 ==
LOC: ED 09:07 → MEDTELE 09:07 → MED 06-16 05:42
PROVIDERS: ADMIT Internal Medicine; ATTEND Internal Medicine

== ENCOUNTER 2021-01-25 22:22 | Inpatient (IN) ==
[2021-01-25] MEDS ORDERED: Lactated Ringers 1000 ml BAG IV.FLUID IV ONE (23:03)
[2021-01-26 00:03] LABS: ABS Basophils 0.1 10^3/ul (0-0.2); ABS Lymphocytes 1.7 10^3/ul (1.0-4.8); ABS Monocytes 1.3 10^3/ul (0-0.8); ABS Neutrophils 12.6 10^3/ul (1.5-7.7); Hematocrit 45 % (35-47); Lymphocyte % 10.7 %; Mean Corpuscular HGB Conc 33 g/dL (31-36); Mean Corpuscular Hemoglobin 33 pg (27-31); Mean Corpuscular Volume 99 fL (80-97); Mean Platelet Volume 10.2 fL (7.4-10.4); Nucleated Red Blood Cells % 0.1; Platelet Count 397 10^3/uL (150-450); Red Blood Count 4.56 10^6 /uL (3.70-4.87); Red Cell Distribution Width 15 % (10-15); White Blood Count 15.7 10^3/uL (3.5-10.8)
[2021-01-26 00:17] LABS: Activated Partial Thrombo Time 30.7 seconds (26.0-38.0); INR 1.39 (0.86-1.15)
[2021-01-26 00:18] LABS: Urine Appearance Turbid; Urine Bilirubin Negative (Negative); Urine Blood 1+ (Negative); Urine Color Amber; Urine Glucose Negative (Negative); Urine Ketones 1+ (Negative); Urine Nitrite Positive (Negative); Urine Protein 2+(100 mg/dL) (Negative); Urine Specific Gravity 1.014 (1.002-1.030); Urine Urobilinogen Negative (Negative)
[2021-01-26 00:25] LABS: ALT 24 U/L (7-52); AST 31 U/L (13-39); Albumin 3.8 g/dL (3.2-5.2); Albumin/Globulin Ratio 1.2 (1-3); Alkaline Phosphatase 145 U/L (35-149); Anion Gap 12 mmol/L (2-11); Blood Urea Nitrogen 9 mg/dL (6-24); C Reactive Protein 20.61 mg/L (<8.01); CO2 Carbon Dioxide 27 mmol/L (22-32); Calcium 10.2 mg/dL (8.6-10.3); Chloride 106 mmol/L (101-111); EGFR African American 110.4 (>60); EGFR Non-African American 91.2 (>60); Globulin 3.3 g/dL (2-4); Glucose 132 mg/dL (70-100); Potassium 3.5 mmol/L (3.5-5.0); Sodium 145 mmol/L (135-145); Total Protein 7.1 g/dL (6.4-8.9)
[2021-01-26 00:31] LABS: Troponin I 0.03 ng/mL (<0.03)
[2021-01-26 00:34] LABS: Urine Bacteria 2+ (Absent); Urine Red Blood Cell 3+(>10/hpf) (Absent); Urine Squamous Epithelial Cell Present (Absent); Urine White Blood Cell 3+(>20/hpf) (Absent)
[2021-01-26] MEDS ORDERED: Piperacillin/Tazobac ADVAN 3.375 GM in NS 0.9% 100 ml BAG 100 ML IV ONE (00:41)
[2021-01-26 02:03] LABS: Lithium 0.98 mmol/L (0.6-1.2)
[2021-01-26] MEDS ORDERED: Polyethylene Glycol 3350 17 GM PACKET PO PRN (06:06)
[2021-01-26] MEDS ORDERED: Magnesium Hydroxide LIQ 30 ML UDC PO PRN ×2 (06:25→16:07)
[2021-01-26 07:53] LABS: Influenza A Molecular Negative (Negative); Influenza B Molecular Negative (Negative)
[2021-01-26] MEDS ORDERED: Ondansetron 4 mg VIAL 2 MG/ML 2 ml VIAL IV ONE (08:28)
[2021-01-26] MEDS ORDERED: LaCOSAMide ORALSYR LIQ 10 MG/ML PO SCH (09:00)
[2021-01-26] MEDS: Enoxaparin 40 MG/0.4 ML SYR SUBCUT SCH (09:05)
[2021-01-26] MEDS: cefTRIAXone 1 gm/50 mL NS BAG 1 GM/50 ML BAG IVPB SCH (09:05)
[2021-01-26 10:36] LABS: ABS Lymphocytes 1.7 10^3/ul (1.0-4.8); ABS Monocytes 1.1 10^3/ul (0-0.8); ABS Neutrophils 12.2 10^3/ul (1.5-7.7); Hematocrit 45 % (35-47); Hemoglobin 14.6 g/dL (12.0-16.0); Lymphocyte % 11.1 %; Mean Corpuscular HGB Conc 33 g/dL (31-36); Mean Corpuscular Hemoglobin 32 pg (27-31); Mean Corpuscular Volume 99 fL (80-97); Mean Platelet Volume 10.7 fL (7.4-10.4); Platelet Count 369 10^3/uL (150-450); Red Blood Count 4.52 10^6 /uL (3.70-4.87); Red Cell Distribution Width 15 % (10-15)
[2021-01-26] MEDS: LaCOSAMide ORALSYR LIQ 10 MG/ML PO SCH ×2 (16:18→22:43)
[2021-01-26] MEDS: Polyethylene Glycol 3350 17 GM PACKET PO SCH (16:23)
[2021-01-26] MEDS: Lithium Carbonate ER 450mg TAB PO SCH (22:37)
[2021-01-27 08:54] LABS: ABS Lymphocytes 1.7 10^3/ul (1.0-4.8); ABS Neutrophils 8.9 10^3/ul (1.5-7.7); Hematocrit 39 % (35-47); Hemoglobin 13.5 g/dL (12.0-16.0); Lymphocyte % 14.9 %; Mean Corpuscular HGB Conc 34 g/dL (31-36); Mean Corpuscular Hemoglobin 33 pg (27-31); Mean Corpuscular Volume 97 fL (80-97); Mean Platelet Volume 10.2 fL (7.4-10.4); Platelet Count 320 10^3/uL (150-450); Red Blood Count 4.07 10^6 /uL (3.70-4.87); Red Cell Distribution Width 15 % (10-15); White Blood Count 11.7 10^3/uL (3.5-10.8)
[2021-01-27 09:12] LABS: Calcium 9.6 mg/dL (8.6-10.3); EGFR African American 132.6 (>60); EGFR Non-African American 109.6 (>60); Magnesium 2.4 mg/dL (1.9-2.7)
[2021-01-27] MEDS: Polyethylene Glycol 3350 17 GM PACKET PO SCH (11:13)
[2021-01-27] MEDS: LaCOSAMide ORALSYR LIQ 10 MG/ML PO SCH ×2 (11:13→19:50)
[2021-01-27] MEDS: Meropenem 1 GM PREMIX(*) 1 GM/50 ML BAG IV SCH ×2 (11:15→18:11)
[2021-01-27] MEDS: Enoxaparin 40 MG/0.4 ML SYR SUBCUT SCH (11:18)
[2021-01-27] MEDS: cefTRIAXone 1 gm/50 mL NS BAG 1 GM/50 ML BAG IVPB SCH (11:43)
[2021-01-27] MEDS ORDERED: Potassium Chlor 20 meq TAB.ER PO ONE ×2 (15:12→21:00)
[2021-01-27] MEDS: KCL 10 MEQ/50 ML IVPREMIX 10 MEQ/50 ML BAG IV SCH ×2 (16:36→18:59)
[2021-01-27] MEDS: Lithium Carbonate ER 450mg TAB PO SCH (19:39)
[2021-01-28] MEDS: Meropenem 1 GM PREMIX(*) 1 GM/50 ML BAG IV SCH ×2 (02:19→09:03)
[2021-01-28 06:19] LABS: Hematocrit 38 % (35-47); Hemoglobin 12.7 g/dL (12.0-16.0); Mean Corpuscular HGB Conc 34 g/dL (31-36); Mean Corpuscular Hemoglobin 33 pg (27-31); Mean Corpuscular Volume 98 fL (80-97); Mean Platelet Volume 10.1 fL (7.4-10.4); Platelet Count 250 10^3/uL (150-450); Red Blood Count 3.85 10^6 /uL (3.70-4.87); Red Cell Distribution Width 15 % (10-15); White Blood Count 8.3 10^3/uL (3.5-10.8)
[2021-01-28 06:27] LABS: Calcium 9.1 mg/dL (8.6-10.3); Magnesium 2.3 mg/dL (1.9-2.7); Potassium 3.3 mmol/L (3.5-5.0)
[2021-01-28] MEDS ORDERED: Potassium Chlor 20 meq TAB.ER PO ONE (07:55)
[2021-01-28] MEDS: LaCOSAMide ORALSYR LIQ 10 MG/ML PO SCH ×2 (08:51→21:22)
[2021-01-28] MEDS: Enoxaparin 40 MG/0.4 ML SYR SUBCUT SCH (08:51)
[2021-01-28] MEDS: Polyethylene Glycol 3350 17 GM PACKET PO SCH ×2 (08:51→08:59)
[2021-01-28] MEDS ORDERED: Zosyn per Pharmacy NOTE FOLLOW UP SCH (10:00)
[2021-01-28] MEDS: Famotidine SUSP ORALSYR 8 MG/ML PO SCH ×2 (12:01→21:22)
[2021-01-28] MEDS ORDERED: DOXYcycline 100 MG in NS 0.9% 250 ml 250 ML IVPB SCH (15:00)
[2021-01-28] MEDS: SULFAMETHOXAZOLE IVPB SCH ×2 (15:54→23:31)
[2021-01-28] MEDS: TRIMETH IVPB SCH ×2 (15:54→23:31)
[2021-01-28] MEDS: D5W IVPB SCH ×2 (15:54→23:31)
[2021-01-28] MEDS ORDERED: Metoclopramide 5 MG/ML VIAL (10 mg) IV PRN (21:05)
[2021-01-28] MEDS: Lithium Carbonate ER 450mg TAB PO SCH (22:07)
[2021-01-29 06:43] LABS: Calcium 9.2 mg/dL (8.6-10.3); EGFR African American 127.5 (>60); EGFR Non-African American 105.4 (>60); Potassium 3.2 mmol/L (3.5-5.0)
[2021-01-29 07:58] VITALS: BP 144/73
[2021-01-29] MEDS: TRIMETH IVPB SCH (08:17)
[2021-01-29] MEDS: LaCOSAMide ORALSYR LIQ 10 MG/ML PO SCH (08:17)
[2021-01-29] MEDS: Famotidine SUSP ORALSYR 8 MG/ML PO SCH (08:17)
[2021-01-29] MEDS: SULFAMETHOXAZOLE IVPB SCH (08:17)
[2021-01-29] MEDS: D5W IVPB SCH (08:17)
[2021-01-29] MEDS: Polyethylene Glycol 3350 17 GM PACKET PO SCH (08:20)
[2021-01-29] MEDS: Enoxaparin 40 MG/0.4 ML SYR SUBCUT SCH (08:20)
[2021-01-29] MEDS ORDERED: Sulfamethox/Trimethoprim SUSP 800-160mg/20 ML UDC PO SCH (09:00)
[2021-01-29] MEDS ORDERED: Potassium Chlor 20 meq TAB.ER PO SCH (09:00)
== END 2021-01-29 13:15 | DRG 872 ==
LOC: ED 22:22 → MED 01-26 13:30
PROVIDERS: ADMIT Internal Medicine; ATTEND Student in an Organized Health Care Education/Training Program

== ENCOUNTER 2023-08-21 16:46 | Inpatient (IN) ==
[2023-08-21 17:32] LABS: ABS Basophils 0.2 10^3/uL (0.0-0.1); ABS Eosinophils 0.5 10^3/uL (0.0-0.5); ABS Lymphocytes 1.7 10^3/uL (1.0-4.8); ABS Monocytes 0.8 10^3/uL (0.0-0.9); ABS Nucleated RBC 0.02 10^3/ul; Eosinophil % 3.8 %; Hematocrit 41.5 % (35-45); Hemoglobin 13.9 g/dL (11.5-14.3); Lymphocyte % 12.8 %; Mean Corpuscular Hemoglobin 31.4 pg (27-33); Mean Corpuscular Hgb Conc 33.6 g/dL (31-36); Mean Corpuscular Volume 93.5 fL (80-97); Nucleated Red Blood Cells % 0.2 %/100WBC (0.0-0.8); Platelet Count 223 10^3/uL (150-450); Red Blood Count 4.43 10^6/uL (3.63-4.92); Red Cell Distribution Width 14.6 % (12-17); White Blood Count 13.1 10^3/uL (3.8-11.8)
[2023-08-21 18:29] LABS: Urine Appearance Turbid; Urine Bilirubin Negative (Negative); Urine Blood Negative (Negative); Urine Color Yellow; Urine Glucose Negative (Negative); Urine Ketones Negative (Negative); Urine Nitrite 2+ (Negative); Urine Protein Trace (Negative); Urine Urobilinogen Negative (Negative); Urine pH 5.5 (5.0-8.0)
[2023-08-21 18:31] LABS: Albumin 4.1 g/dL (3.2-5.2); Albumin/Globulin Ratio 1.8 (1-3); C Reactive Protein 159.84 mg/L (<8.01); Calcium 8.9 mg/dL (8.6-10.3); Creatinine, Serum 0.72 mg/dL (0.51-0.95); Globulin 2.3 g/dL (2-4); Potassium 3.6 mmol/L (3.5-5.0); Total Bilirubin 0.6 mg/dL (0.2-1.0); Total Protein 6.4 g/dL (6.4-8.9); eGFR CKD-EPI 99.3 (>60)
[2023-08-21 18:33] LABS: Urine Bacteria 3+ /HPF (Absent); Urine Red Blood Cell 1+(3-5/hpf) /HPF (0-Trace); Urine Squamous Epithelial Cell Present /HPF (Absent); Urine White Blood Cell 3+(>20/hpf) /HPF (0-Trace)
[2023-08-21 19:05] LABS: High Sensitivity Troponin 1 Hr 6 pg/mL (<15)
[2023-08-21] MEDS: cefTRIAXone 1 gm/50 mL D5W 1 GM/50 ML BAG IV ONE (19:58)
[2023-08-21] MEDS: Azithromycin 500 mg/250 ml NS 500 MG/250 ML BAG IVPB ONE (20:52)
[2023-08-21] MEDS: Iohexol 350 (CONTRAST) 500 ML MDV IV ONE (22:06)
[2023-08-22] MEDS: Lactated Ringers 1000 ml BAG 1,000 ML IV ONE
[2023-08-22] MEDS ORDERED: Albuterol HFA INHALER 8 gm MDI INH PRN (03:24)
[2023-08-22] MEDS ORDERED: VILAZODONE 20 MG PO SCH (09:00)
[2023-08-22 10:23] LABS: Anion Gap 14 mmol/L (2-16); Blood Urea Nitrogen 13 mg/dL (6-24); CO2 Carbon Dioxide 24 mmol/L (22-32); Chloride 105 mmol/L (101-111); Creatinine, Serum 0.64 mg/dL (0.51-0.95); Glucose 97 mg/dL (70-100); Magnesium 1.8 mg/dL (1.9-2.7); Sodium 143 mmol/L (135-145)
[2023-08-22] MEDS: CMCS: Vilazodone 40 mg TAB (NF) PO SCH (10:38)
[2023-08-22] MEDS: Calcium Polycarbophil 625mg TB PO SCH (10:40)
[2023-08-22 12:51] LABS: Hematocrit 40.9 % (35-45); Hemoglobin 13.8 g/dL (11.5-14.3); Mean Corpuscular Hemoglobin 31.6 pg (27-33); Mean Corpuscular Hgb Conc 33.7 g/dL (31-36); Mean Corpuscular Volume 93.9 fL (80-97); Mean Platelet Volume 9.2 fL (7.5-11.2); Platelet Count 210 10^3/uL (150-450); Red Blood Count 4.35 10^6/uL (3.63-4.92); Red Cell Distribution Width 14.2 % (12-17); White Blood Count 8.8 10^3/uL (3.8-11.8)
[2023-08-22] MEDS: Ondansetron ODT 4 mg TAB 4 MG TAB SL PRN (13:44)
[2023-08-22] MEDS: cefTRIAXone 1 gm/50 mL D5W 1 GM/50 ML BAG IV SCH (18:00)
[2023-08-22] MEDS: Azithromycin 500 mg/250 ml NS 500 MG/250 ML BAG IVPB SCH (18:54)
[2023-08-22] MEDS ORDERED: CMCS: Vilazodone 40 mg TAB (NF) PO SCH (21:00)
[2023-08-23] MEDS: COVID VAC 23-24(12+)(Moderna) SYR 0.5 ML IM ONE (18:06)
[2023-08-23] MEDS: Influenza vaccine *QUAD* *2023-24* 0.5 ML SYRINGE IM ONE (18:11)
[2023-08-24 06:41] LABS: Calcium 9.3 mg/dL (8.6-10.3); Creatinine, Serum 0.58 mg/dL (0.51-0.95); Magnesium 1.9 mg/dL (1.9-2.7); Potassium 3.8 mmol/L (3.5-5.0); eGFR CKD-EPI 107.5 (>60)
[2023-08-24 07:01] LABS: ABS Eosinophils 0.4 10^3/uL (0.0-0.5); ABS Lymphocytes 0.9 10^3/uL (1.0-4.8); ABS Monocytes 0.4 10^3/uL (0.0-0.9); ABS Neutrophils 2.7 10^3/uL (1.5-7.6); ABS Nucleated RBC 0.01 10^3/ul; Eosinophil % 8.4 %; Hematocrit 39.4 % (35-45); Hemoglobin 13.3 g/dL (11.5-14.3); Mean Corpuscular Hemoglobin 31.7 pg (27-33); Mean Corpuscular Hgb Conc 33.7 g/dL (31-36); Mean Corpuscular Volume 94.1 fL (80-97); Mean Platelet Volume 9.4 fL (7.5-11.2); Nucleated Red Blood Cells % 0.1 %/100WBC (0.0-0.8); Platelet Count 222 10^3/uL (150-450); Red Blood Count 4.19 10^6/uL (3.63-4.92); Red Cell Distribution Width 14.2 % (12-17); White Blood Count 4.3 10^3/uL (3.8-11.8)
[2023-08-24 10:03] VITALS: BP 132/82
[2023-08-24] MEDS: D5W 500 ml BAG 500 ML IV ONE (10:27)
[2023-08-24 12:14] LABS: Rapid COVID-19 Molecular Undetected (Undetected)
== END 2023-08-24 13:16 | DRG 193 ==
LOC: ED 16:46 → EDHOLD 16:46 → SUATTDRO 08-22 00:01 → EDHOLD 08-22 04:59 → MED 08-22 05:44
PROVIDERS: ADMIT Internal Medicine; ATTEND Student in an Organized Health Care Education/Training Program